=== PATIENT | female | born 1970 | race Caucasian/White ===

== ENCOUNTER 2017-05-13 17:53 | Emergency (ER) | payer MEDICAID, SELFPAY ==
[2017-05-13 17:54] VITALS: BP 162/76; PULSE 99; RESP 16; TEMP 36.8; O2SAT 96; BMI 45.4
--- NOTE | 2017-05-13 17:58 | RAD_ITS ---
STUDY: X-RAY - LEFT SHOULDER REASON FOR EXAM: Female, 47 years old. Trauma TECHNIQUE: 2 view(s) of the shoulder. COMPARISON: None. FINDINGS: Normal glenohumeral articulation. Normal acromioclavicular joint. Normal acromion. Normal humeral head and visualized proximal humerus. The soft tissue structures are unremarkable. Normal visualized pulmonary apex. RAD/Shoulder min 2 Views IMPRESSION: Normal x-ray examination of the shoulder. Electronically Signed: Jesse Flores MD at 18:26 EDT , Service support ,
--- NOTE | 2017-05-13 18:45 | ED.VISSUMM ---
- ER Visit Summary Date of Service: 05/13/17 Chief Complaint: Left shoulder injury History of Present Illness: The patient is a 47 F right-hand dominant female who was standing on the edge of her bathtub to clean some cobwebs, she slipped and fell, landing against the tub versus the posterior aspect of her left shoulder. She has a history of left shoulder bursitis and had trouble reaching overhead prior to the injury, now it is hurting worse. Denies any neurologic symptoms in her left upper extremity Physical Examination: Well-appearing no acute distress. Tender in the trapezius, medial to the acromion, above the spine of the scapula. There is no tenderness to the clavicle or the AC joint, there are no deformities. Her obesity does limit this exam to some degree. She has some mild tenderness throughout the proximal humerus as well, and some tenderness in the subacromial area. There are no obvious signs of trauma. The rest of her exam is benign. Neurovascularly intact distally throughout the left upper extremity. No numbness throughout the distribution of the axillary nerve. Test Results: Left shoulder x-ray negative Emergency Department Course and Treatment: Her range of motion is limited with regards to abduction and reaching overhead. I think she would benefit from a sling, she states if she does not move it from the position of comfort, she has no pain. She is amenable to receiving that, using it prn, and ibuprofen 800 mg, as well as a prescription for that. Treatment Plan: As above, follow-up as needed if not improving after a week Disposition: Discharge home Impression: Acute left shoulder contusion History left shoulder bursitis This note was generated with [employer] dictation software. It may contain incorrect words, spelling, and punctuation that were not noted in review of the chart prior to signing ED Disposition - Plan for ED Patient: Disposition: Home or Assisted Living Chief Complaint: Upper Extremity Injury Instructions: ED Contusion Upper Ext, ED Sling Prescriptions: Ibuprofen 800 mg PO . Q8-12H PRN #20 tab PRN Reason: Pain Referrals: Yifan Blum DO [Primary Care Provider] - 1 Week if not improving
--- NOTE | 2017-05-13 18:51 | ED.DCSUM_ITS ---
- ER Visit Summary Date of Service: 05/13/17 Chief Complaint: Left shoulder injury History of Present Illness: The patient is a 47 F right-hand dominant female who was standing on the edge of her bathtub to clean some cobwebs, she slipped and fell, landing against the tub versus the posterior aspect of her left shoulder. She has a history of left shoulder bursitis and had trouble reaching overhead prior to the injury, now it is hurting worse. Denies any neurologic symptoms in her left upper extremity Physical Examination: Well-appearing no acute distress. Tender in the trapezius , medial to the acromion, above the spine of the scapula. There is no tenderness to the clavicle or the AC joint, there are no deformities. Her obesity does limit this exam to some degree. She has some mild tenderness throughout the proximal humerus as well, and some tenderness in the subacromial area. There are no obvious signs of trauma. The rest of her exam is benign. Neurovascularly intact distally throughout the left upper extremity. No numbness throughout the distribution of the axillary nerve. Test Results: Left shoulder x-ray negative Emergency Department Course and Treatment: Her range of motion is limited with regards to abduction and reaching overhead. I think she would benefit from a sling, she states if she does not move it from the position of comfort, she has no pain. She is amenable to receiving that, using it prn, and ibuprofen 800 mg , as well as a prescription for that. Treatment Plan: As above, follow-up as needed if not improving after a week Disposition: Discharge home Impression: Acute left shoulder contusion History left shoulder bursitis This note was generated with [employer] dictation software. It may contain incorrect words, spelling, and punctuation that were not noted in review of the chart prior to signing ED Disposition - Plan for ED Patient: Disposition: Home or Assisted Living Chief Complaint: Upper Extremity Injury Instructions: ED Contusion Upper Ext, ED Sling Prescriptions: Ibuprofen 800 mg PO . Q8-12H PRN #20 tab PRN Reason: Pain Referrals: Yifan Blum DO [Primary Care Provider] - 1 Week if not improving
[2017-05-13] MEDS: Ibuprofen 400 MG Tablet 800 MG PO (19:30)
--- NOTE | 2017-05-13 19:32 | ED.RN ---
VERBAL AND WRITTEN D/C INSTRUCTIONS GIVEN. ALL QUESTIONS ANSWERED. GAIT STEADY OUT OF DEPARTMENT.
== END 2017-05-13 19:32 | disposition home or self-care (01) ==
LOC: ED 18:57
PROVIDERS: Emergency Provider Emergency Medicine; Family Provider Student in an Organized Health Care Education/Training Program; PCP Student in an Organized Health Care Education/Training Program
DX: S40.012A Contusion of left shoulder, initial encounter (principal); M75.52 Bursitis of left shoulder; W01.0XXA Fall on same level from slipping, tripping and stumbling without subsequent striking against object, initial encounter; Y93.9 Activity, unspecified; Y92.9 Unspecified place or not applicable; Y99.9 Unspecified external cause status; E66.9 Obesity, unspecified
CPT/HCPCS: 73030; 99283

== ENCOUNTER → 2017-05-30 10:30 | Outpatient (CLI) | payer MEDICAID, SELFPAY ==
[2017-05-30 10:35] LABS: Mucous, Urine 0 SEEN /hpf (<or=2+); Red Blood Cells-Urine 0 SEEN /hpf (0-5)
[2017-05-30 11:03] LABS: Color, Urine Yellow (Yellow); Glucose, Dipstick 1000 mg/dl (Normal); Ketone-Dipstick 5 mg/dl (Negative); Leukocyte Esterase-Dipstick 500 /ul (Negative); Nitrite-Dipstick Negative (Negative); Occult Blood-Urine Negative /ul (Negative); Protein-Dipstick 15 mg/dl (Negative); Specific Gravity, Urine 1.015 (1.002-1.030); Urine Bilirubin Dipstick Negative (Negative); Urine Clarity Sl. Cloudy (Clear); Urine Urobilinogen Normal (Normal)
[2017-05-30 11:13] LABS: Squamous Epithelial Cells - UA 0-5 SEEN /hpf (5-10); White Blood Cells 25-50 SEEN /hpf (0-5)
[2017-05-30 11:14] LABS: Bacteria 1+ /hpf (None Seen)
[2017-05-30 12:42] LABS: ALB/GLOB Ratio 1.1 RATIO (0.9-2.4); AST(SGOT) 26 U/L (15-37); Alanine Aminotransfer ALT/SGPT 24 U/L (13-56); Albumin, Serum 3.8 g/dL (3.2-5.0); Alkaline Phosphatase 72 U/L (45-117); Anion Gap 5 (5-15); BUN 8 mg/dL (7-18); BUN/Creat Ratio 10.6 RATIO (10-20); Calcium,Total 8.8 mg/dL (8.5-10.1); Chloride 105 mmol/L (98-107); Cholesterol 173 mg/dL (200); Creatinine, Serum 0.76 mg/dL (0.55-1.02); EST Glomerular Filtration Rate 88 mL/min (>60); Est Glom Filt Rate - Afr Amer 106 mL/min (>60); Globulin 3.6 g/dL (2.2-4.2); Glucose 176 mg/dL (74-106); High Density Lipoprotein 44 mg/dL; Potassium 3.7 mmol/L (3.5-5.1); Protein, Total 7.4 g/dL (6.4-8.2); Sodium Level 140 mmol/L (136-145); Triglycerides 262 mg/dL; Very Low Density Lipoprotein 52 mg/dL (5-40)
== END ==
PROVIDERS: Family Provider Student in an Organized Health Care Education/Training Program; PCP Student in an Organized Health Care Education/Training Program; Visit Provider Nurse Practitioner
DX: E10.8 Type 1 diabetes mellitus with unspecified complications (principal); E10.65 Type 1 diabetes mellitus with hyperglycemia
CPT/HCPCS: 36415; 80053; 80061; 81001

== ENCOUNTER → 2017-10-04 09:30 | Outpatient (CLI) | payer MEDICAID, SELFPAY | PROVIDERS: Family Provider Student in an Organized Health Care Education/Training Program; PCP Student in an Organized Health Care Education/Training Program; Visit Provider Podiatrist | DX: S86.311A Strain of muscle(s) and tendon(s) of peroneal muscle group at lower leg level, right leg, initial encounter (principal); X58.XXXA Exposure to other specified factors, initial encounter; Y93.9 Activity, unspecified; Y92.9 Unspecified place or not applicable; Y99.9 Unspecified external cause status; M79.89 Other specified soft tissue disorders | CPT/HCPCS: 73718 ==

== ENCOUNTER → 2018-02-12 11:46 | Outpatient (CLI) | payer MEDICAID, SELFPAY ==
[2018-02-12 10:46] VITALS: BMI 44.5
[2018-02-12 13:08] LABS: Microalbumin,Random Urine 17.5 mg/L (NO RANGE EST.); Microalbumin:Creatinine Ratio 8.1 mg/g CRE (<30 mg/g CRE)
[2018-02-12 13:27] LABS: ALB/GLOB Ratio 1.1 RATIO (0.9-2.4); AST(SGOT) 15 U/L (15-37); Alanine Aminotransfer ALT/SGPT 20 U/L (13-56); Albumin, Serum 3.8 g/dL (3.2-5.0); Alkaline Phosphatase 73 U/L (45-117); Anion Gap 8 (5-15); BUN 8 mg/dL (7-18); BUN/Creat Ratio 9.9 RATIO (10-20); Calcium,Total 9.1 mg/dL (8.5-10.1); Chloride 108 mmol/L (98-107); Creatinine, Serum 0.81 mg/dL (0.55-1.02); EST Glomerular Filtration Rate 81 mL/min (>60); Est Glom Filt Rate - Afr Amer 98 mL/min (>60); Globulin 3.6 g/dL (2.2-4.2); Glucose 107 mg/dL (74-106); Protein, Total 7.4 g/dL (6.4-8.2); Sodium Level 142 mmol/L (136-145)
== END ==
PROVIDERS: Family Provider Student in an Organized Health Care Education/Training Program; PCP Student in an Organized Health Care Education/Training Program; Referring Provider Nurse Practitioner; Visit Provider Nurse Practitioner
DX: E11.65 Type 2 diabetes mellitus with hyperglycemia (principal)
CPT/HCPCS: 36415; 80053; 82043; 82570; 83036

== ENCOUNTER 2018-07-02 12:53 | Emergency (ER) | payer MEDICAID, SELFPAY ==
[2018-02-12 10:46] VITALS: BMI 44.5
[2018-07-02 12:54] VITALS: BP 152/71; PULSE 102; RESP 16; TEMP 37.1; O2SAT 98; BMI 38.2
--- NOTE | 2018-07-02 13:41 | ED.RN ---
PT GIVEN TURKEY SANDWICH AND CHEESE STICK TO SUPPORT SAFE BLOOD GLUCOSE LEVELS. WILL CONTINUE TO MONITOR AND CHECK POST-PRANDIAL GLUCOSE APPROPRIATE.
--- NOTE | 2018-07-02 13:49 | ED.DCSUM_ITS ---
History of Present Illness Chief Complaint: Hypoglycemia Narrative: Patient presenting for evaluation secondary to a hypoglycemic episode. Patient has history of type 1 diabetes. She is on both long-acting and short acting insulin and is managed by an thermoscrew operator. Patient reports that about a week and a half ago she had an upward adjustment of her long-acting insulin. She has had about 3 hypoglycemic episodes since then. The additional episodes were treated at home with glucagon, but the patient did not have her glucagon with her today, so EMS was contacted. Patient was given oral sugar, and did have improvement of her blood sugars. Patient states that her diabetes is complicated by the fact that she has underlying gastroparesis. She denies that she is been having any significant vomiting currently. Review of systems otherwise negative. Past Medical History - Allergies and Home Meds Allergies/Adverse Reactions: Allergies mirtazapine [From Remeron] Allergy (Severe, Verified 02/12/18 10:43) Unknown hydrocodone bitartrate [From Vicodin] Allergy (Verified 02/12/18 10:43) Itching latex Allergy (Verified 02/12/18 10:43) Swelling oxycodone HCl [From Percocet] Allergy (Verified 02/12/18 10:43) Itching Penicillins Allergy (Verified 02/12/18 10:43) Unknown propoxyphene napsylate [From Darvocet-N 100] Allergy (Verified 02/12/18 10:43) Unknown vancomycin Allergy (Verified 02/12/18 10:43) Unknown Primary Care Physician: Yifan Blum DO [Primary Care Provider] - Smoking Status: Current every day smoker Review of Systems All systems negative except as indicated General: Denies: Chills, Fever Gastrointestinal: Reports: Nausea, Vomiting Endocrine: Reports: - - hypoglycemia Physical Exam Vital Signs/Narrative: Vital Signs Temp Pulse Resp BP Pulse Ox 07/02/18 12:54 98.7 F 102 H 16 152/71 H 98 General: Well nourished, Well developed, - - Obese Head: Normocephalic, Atraumatic Eyes: Perrl, EOMI ENT: Moist mucous membranes, No rhinorrhea Neck: Supple, Nontender Cardiovascular: Regular rate, Regular rhythm, No murmurs Respiratory: No distress, CTA bilaterally, Chest nontender Abdomen: Soft, Nontender, Nondistended, Normal bowel sounds Extremities: Nontender, No edema Skin: Normal color, No rash Neurological: Alert, Oriented x3, Cranial nerves II-XII grossly intact, Normal Strength, Normal Sensation Psychological: Normal affect, Normal Mood Diagnostic/Tx/Re-eval - Medical Decision Making Patient presented secondary to a hypoglycemic episode. Patient was given a p.o. diet in the emergency department, was observed for an hour and a half, and did not have repeat episodes of hypoglycemia. Patient at this point I believe is ap propriate for discharge. She was recommended that she needs to follow-up with her thermoscrew operator. Patient was discharged in improved condition. ED Disposition - Plan for ED Patient: Disposition: Home or Assisted Living Diagnosis: Hypoglycemia Instructions: ED Diabetes Hypoglycemia Insulin React Additional Instructions: Follow-up as soon as possible with your thermoscrew operator
[2018-07-02 14:21] LABS: Bedside Glucose 87 mg/dL (70-110)
[2018-07-02 17:30] LABS: Bedside Glucose 85 mg/dL (70-110)
== END 2018-07-02 14:49 | disposition home or self-care (01) ==
PROVIDERS: Emergency Provider Emergency Medicine; Family Provider Student in an Organized Health Care Education/Training Program; PCP Student in an Organized Health Care Education/Training Program
DX: E10.649 Type 1 diabetes mellitus with hypoglycemia without coma (principal); E10.43 Type 1 diabetes mellitus with diabetic autonomic (poly)neuropathy; K31.84 Gastroparesis; F17.200 Nicotine dependence, unspecified, uncomplicated; Z79.4 Long term (current) use of insulin; Z79.899 Other long term (current) drug therapy; Z88.0 Allergy status to penicillin; Z88.5 Allergy status to narcotic agent; Z91.040 Latex allergy status
CPT/HCPCS: 82962; 96360; 99284; J7040; A4216

== ENCOUNTER 2018-08-04 09:00 | Outpatient (RCR) | payer MEDICAID, SELFPAY ==
--- NOTE | 2018-07-31 11:09 | HP.OTEVAL ---
Patient's Visit Information JACQUE RODRIGUEZ is a 48 year old F, referred to Occupational Therapy by Bennie Torres MD, with a diagnosis of MF and RF trigger finger. Date of Evaluation: 07/31/18 Occupational Therapist: Caitlin Campuzano, MARQUESR/L - Subjective Subjective: Jacque nagy is referred from Dr. Torres. 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 She noted cesia was removed and since trauma to hand she explained L MF and RF have become very sore and are presenting like trigger fingers. - ADLs Dressing: Pants Comments: using straighten; lotion to hands Kitchen: Chop with knife, Peel fruits & vegetables, Open jars, Ziplock bags, Place dish in microwave Comments: tearing things open. Household: Laundry Miscellaneous: Open medication bottle Comments: framing tasks Comments: Increased difficulty getting ring on and off. 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 Noted sharp/buring pain in L hand when compelitng task. She does have neuropathy in feet. - Edema Proximal Phalanx: MF R 7.8 cm, L 8.2 cm ; RF R 7.2, 7.5 cm - Sensation Thumb: R 2.83, L 2.83 Index: R 3.22, L 2.83 Middle: R 3.22, L 3.22 Ring: R 3.22, L 2.83 Little: R 3.22, L 2.83 Sensation Comments: Monofilamnet completed finger pads (see above). dorsal on proximal phalanx: R 2nd 2.44, 3rd 2.44, 4th 2.44, 5th 2.44, thumb 3.22. L 2nd 1.65, 3rd 1.65, 4th 2.63, 5th 1.65, thumb 3.22 - In-Hand Manipulation Finger to Palm Translation: Normal - Right, Moderate - Left Palm to Finger Translation: Normal - Right, Moderate - Left Shift: Normal - Right, Normal - Left Rotation: Normal - Right, Mild - Left - Quick DASH-Disab of Arm,Shoulder& Hand Quick DASH Score: 59.0900 - Goals Goal:: Cuong to inceased R brownfield redevelopment site manager strength by 20-25 lbs to promote increased strength and decreased pian 2/3 trials 75% of the time by d/c. Goal:: Cuong to increase l RF and MF ROM by 10 degrees to promote increased ability to complete flexionand extension of L hand for ADL/IAdls by d/c. Goal:: Cuong to have no more than 1-2/10 pain with completing fx activities 4/5 trials 80% o the time for ADL/IADls by d/c. Goal:: Jacque nagy to complete daily scar massage to promote decreased sensitivity to area 4/5 trials 80% of the time by d/c. Goal:: Cuong to increase fx pinch patterns by 5-7 lbs to promote increased strength of l hand for ADL/IADls by d/c. Goal:: Jacque nagy to completed daily HEP to promote increased edema management techniques, ROM, strength 4/5 trials 80% of the time by d/c. - Rehabilitation Rehabilitation Potential: Good - Anticipated Interventions Anticipated Interventions: Early Active Motion, A/AAROM/PROM, Strengthening, Edema Control, Desensitization, Modalities, Orthoses, Joint Protection/Energy Conservation, Ergonomic Education, Dynamic Sitting Balance, Fine Motor Coord/Junior, Neuro Reeducation, ADL Training, Caregiver Training, Home Program - Visit Plan Frequency: 2-3x /Week Duration: 4 Weeks TEXT: Thank you for the opportunity to evaluate your patient. For Medicare and Medicare HMO plans, please review the plan of care and approve it. It will need to be FAXED BACK to us at [phone] for Medicare purposes. Please let me know if there are questions or concerns regarding this plan of care. Physician Signature: Date:
--- NOTE | 2018-07-31 13:12 | HP.OTEVAL ---
Patient's Visit Information JACQUE RODRIGUEZ is a 48 year old F, referred to Occupational Therapy by Bennie Torres MD, with a diagnosis of MF and RF trigger finger. Date of Evaluation: 07/31/18 Occupational Therapist: Caitlin Campuzano, MARQUESR/L - Subjective Subjective: Jacuqe nagy is referred from Dr. Torres. 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 She noted cesia was removed and since trauma to hand she explained L MF and RF have become very sore and are presenting like trigger fingers. - ADLs Dressing: Pants Comments: using straighten; lotion to hands Kitchen: Chop with knife, Peel fruits & vegetables, Open jars, Ziplock bags, Place dish in microwave Comments: tearing things open. Household: Laundry Miscellaneous: Open medication bottle Comments: framing tasks Comments: Increased difficulty getting ring on and off. - Pain L MF and RF 3 Pain Intensity Range: 3, 8 - ROM Wrist: flexion R 0-73, L 0-65; ext R 0-44, L 0-41 MP: MF R 0-70, L 12-59; RF R 0-65, L 0-53 PIP: MF R 0-96, L 19-64; RF R 0-97, L 19-71 DIP: MF R 0-46, L 11-54; RF R 0-52, L 0-44 - Strength Motorsports Technician: R 55, L 13 Lateral Pinch: R 13, L 5 Tripod Pinch: R 12, L 2 Strength Comments: Increased pain with tape edge machine operator and pinch movement of L hand. Noted sharp/buring pain in L hand when compelitng task. She does have neuropathy in feet. - Edema Proximal Phalanx: MF R 7.8 cm, L 8.2 cm ; RF R 7.2, 7.5 cm - Sensation Thumb: R 2.83, L 2.83 Index: R 3.22, L 2.83 Middle: R 3.22, L 3.22 Ring: R 3.22, L 2.83 Little: R 3.22, L 2.83 Sensation Comments: Monofilamnet completed finger pads (see above). dorsal on proximal phalanx: R 2nd 2.44, 3rd 2.44, 4th 2.44, 5th 2.44, thumb 3.22. L 2nd 1.65, 3rd 1.65, 4th 2.63, 5th 1.65, thumb 3.22 - In-Hand Manipulation Finger to Palm Translation: Normal - Right, Moderate - Left Palm to Finger Translation: Normal - Right, Moderate - Left Shift: Normal - Right, Normal - Left Rotation: Normal - Right, Mild - Left - Quick DASH-Disab of Arm,Shoulder& Hand Quick DASH Score: 59.0900 - Goals Goal:: Jacque nagy to inceased R tape edge machine operator strength by 20-25 lbs to promote increased strength and decreased pian 2/3 trials 75% of the time by d/c. Goal:: Jacque nagy to increase l RF and MF ROM by 10 degrees to promote increased ability to complete flexionand extension of L hand for ADL/IAdls by d/c. Goal:: Jacque nagy to have no more than 1-2/10 pain with completing fx activities 4/5 trials 80% o the time for ADL/IADls by d/c. Goal:: Jacque nagy to complete daily scar massage to promote decreased sensitivity to area 4/5 trials 80% of the time by d/c. Goal:: Jacque nagy to increase fx pinch patterns by 5-7 lbs to promote increased strength of l hand for ADL/IADls by d/c. Goal:: Jacque nagy to completed daily HEP to promote increased edema management techniques, ROM, strength 4/5 trials 80% of the time by d/c. - Rehabilitation General Assessment: OT assessment on this date of 07/31/18. Jacque Nagy exhibits increased tenderness and limited ROM for finger flexion and extension of L hand s/p traumatic injury with metal cesia. SHe is presenting like trigger finger but increased soft tissue damage likely due to injury. She would benefit from OT to address these limitations and increased her ability to return to [facility] for ADL/IAdls with L hand. Rehabilitation Potential: Good - Anticipated Interventions Anticipated Interventions: Early Active Motion, A/AAROM/PROM, Strengthening, Edema Control, Desensitization, Modalities, Orthoses, Joint Protection/Energy Conservation, Ergonomic Education, Dynamic Sitting Balance, Fine Motor Coord/Junior, Neuro Reeducation, ADL Training, Caregiver Training, Home Program - Visit Plan Frequency: 2-3x /Week Duration: 4 Weeks General Plan: complete edema management techniques, ROM, strengthening, pain management with use of modalities, and general splint if needed to promote return of function of l hand for ADL/IADls. TEXT: Thank you for the opportunity to evaluate your patient. For Medicare and Medicare HMO plans, please review the plan of care and approve it. It will need to be FAXED BACK to us at [phone] for Medicare purposes. Please let me know if there are questions or concerns regarding this plan of care. Physician Signature: Date:
--- NOTE | 2018-08-01 07:22 | HP.OTEVAL ---
Patient's Visit Information JACQUE RODRIGUEZ is a 48 year old F, referred to Occupational Therapy by Bennie Torres MD, with a diagnosis of MF and RF trigger finger. Date of Evaluation: 07/31/18 Occupational Therapist: Caitlin Campuzano, MARQUESR/L - Subjective Subjective: Jacque nagy is referred from Dr. Torres. 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 She noted cesia was removed and since trauma to hand she explained L MF and RF have become very sore and are presenting like trigger fingers. - ADLs Dressing: Pants Comments: using straighten; lotion to hands Kitchen: Chop with knife, Peel fruits & vegetables, Open jars, Ziplock bags, Place dish in microwave Comments: tearing things open. Household: Laundry Miscellaneous: Open medication bottle Comments: framing tasks Comments: Increased difficulty getting ring on and off. - Pain L MF and RF 3 Pain Intensity Range: 3, 8 - ROM Wrist: flexion R 0-73, L 0-65; ext R 0-44, L 0-41 MP: MF R 0-70, L 12-59; RF R 0-65, L 0-53 PIP: MF R 0-96, L 19-64; RF R 0-97, L 19-71 DIP: MF R 0-46, L 11-54; RF R 0-52, L 0-44 - Strength Smooth Plater: R 55, L 13 Lateral Pinch: R 13, L 5 Tripod Pinch: R 12, L 2 Strength Comments: Increased pain with director of assessing and pinch movement of L hand. Noted sharp/buring pain in L hand when compelitng task. She does have neuropathy in feet. - Edema Proximal Phalanx: MF R 7.8 cm, L 8.2 cm ; RF R 7.2, 7.5 cm - Sensation Thumb: R 2.83, L 2.83 Index: R 3.22, L 2.83 Middle: R 3.22, L 3.22 Ring: R 3.22, L 2.83 Little: R 3.22, L 2.83 Sensation Comments: Monofilamnet completed finger pads (see above). dorsal on proximal phalanx: R 2nd 2.44, 3rd 2.44, 4th 2.44, 5th 2.44, thumb 3.22. L 2nd 1.65, 3rd 1.65, 4th 2.63, 5th 1.65, thumb 3.22 - In-Hand Manipulation Finger to Palm Translation: Normal - Right, Moderate - Left Palm to Finger Translation: Normal - Right, Moderate - Left Shift: Normal - Right, Normal - Left Rotation: Normal - Right, Mild - Left - Quick DASH-Disab of Arm,Shoulder& Hand Quick DASH Score: 59.0900 - Goals Goal:: Jacque nagy to inceased R director of assessing strength by 20-25 lbs to promote increased strength and decreased pian 2/3 trials 75% of the time by d/c. Goal:: Jacque nagy to increase l RF and MF ROM by 10 degrees to promote increased ability to complete flexionand extension of L hand for ADL/IAdls by d/c. Goal:: Jacque nagy to have no more than 1-2/10 pain with completing fx activities 4/5 trials 80% o the time for ADL/IADls by d/c. Goal:: Jacque nagy to complete daily scar massage to promote decreased sensitivity to area 4/5 trials 80% of the time by d/c. Goal:: Jacque nagy to increase fx pinch patterns by 5-7 lbs to promote increased strength of l hand for ADL/IADls by d/c. Goal:: Jacque nagy to completed daily HEP to promote increased edema management techniques, ROM, strength 4/5 trials 80% of the time by d/c. - Rehabilitation General Assessment: OT assessment on this date of 07/31/18. Jacque Nagy exhibits increased tenderness and limited ROM for finger flexion and extension of L hand s/p tramatic injury with metal cesia. SHe is presenting like trigger finger but increased soft tissue damage likley due to injury. She would benefit from OT to address these limitation and increased her ability to return to [facility] for ADL/IAdls with L hand. Rehabilitation Potential: Good - Anticipated Interventions Anticipated Interventions: Early Active Motion, A/AAROM/PROM, Strengthening, Edema Control, Desensitization, Modalities, Orthoses, Joint Protection/Energy Conservation, Ergonomic Education, Dynamic Sitting Balance, Fine Motor Coord/Junior, Neuro Reeducation, ADL Training, Caregiver Training, Home Program - Visit Plan Frequency: 2-3x /Week Duration: 4 Weeks General Plan: complete edema management techniques, ROM, strengthening, pain management with use of modalities, and general splint if needed to promote return of function of l hand for ADL/IADls. TEXT: Thank you for the opportunity to evaluate your patient. For Medicare and Medicare HMO plans, please review the plan of care and approve it. It will need to be FAXED BACK to us at [phone] for Medicare purposes. Please let me know if there are questions or concerns regarding this plan of care. Physician Signature: Date:
--- NOTE | 2018-08-29 09:34 | HP.OT.NRP ---
HP - Discharge Summary - Patient Information LISA RODRIGUEZ was seen in my office for initial evaluation on 07/31/18. The following Plan of Care was established for this patient: Initial Frequency: 2-3x /Week Initial Duration: 4 Weeks Plan: continue POC. Continue isometric and intrinsic strengthening techniques as wella s ilnar nerve glides; potentially make trigger finger splint but she is to look online; trial fluidotherapy/US at 1.0 w/cms, 3.3 Mhx, and at 20-50% over volar MCP and palm. If completing fluidotherapy trial abduction, PIP flexion,a nd MP flexion during time in machine. - Anticipated Interventions Anticipated Interventions: Early Active Motion, A/AAROM/PROM, Strengthening, Edema Control, Desensitization, Modalities, Orthoses, Joint Protection/Energy Conservation, Ergonomic Education, Dynamic Sitting Balance, Fine Motor Coord/Junior, Neuro Reeducation, ADL Training, Caregiver Training, Home Program This patient was last seen in our office 08/04/18. Pertinent comments regarding their Occupational therapy will appear below: Pt. has not been seen since 08/04/18. She as been called but consistently has not attended multiple therapy sessions without calling to cancel and will be d/c'd at this time due to lack of attendance. At this point I will be discontinuing this patient from occupational therapy. I would be happy to see this patient again in the future if found appropriate by the physician. Thank you! Caitlin Campuzano, OTR/L
== END 2018-08-04 19:00 | disposition home or self-care (01) ==
LOC: OT 09:00
PROVIDERS: Family Provider Student in an Organized Health Care Education/Training Program; PCP Student in an Organized Health Care Education/Training Program; Referring Provider Orthopaedic Surgery; Visit Provider Orthopaedic Surgery
DX: M65.332 Trigger finger, left middle finger (principal); M65.342 Trigger finger, left ring finger
CPT/HCPCS: 97110; 97166; 97530

== ENCOUNTER 2018-11-14 08:42 | Day surgery (SDC) | payer MEDICAID, SELFPAY ==
[2018-11-14] VITALS (11 sets, daily range): BP systolic 109–132; BP diastolic 54–91; PULSE 70–97; RESP 16; TEMP 36.2–36.6; O2SAT 90–100; BMI 44.8
[2018-11-14] MEDS: Lactated Ringers 1,000 ML 100 ML IV (09:45)
[2018-11-14 09:56] LABS: Bedside Glucose 74 mg/dL (70-110)
--- NOTE | 2018-11-14 10:30 | SOF_PTH ---
PATIENT: LISA RODRIGUEZ LOC: [facility] [place] U#:[id number] AGE/SX: 48/F ROOM: RE11/14/[address]: GIN MultaniM : 1970 BED: DIS: 11/14/2018 SPEC #: [id number] RECD: 11/14/18 12:59 STATUS: SWAPNA REAlix #: [id number] VANGIE: 11/14/18 10:[address]: Evangelista Hand DEPT: SURGICAL PATHOLOGY RECD BY: Markus Jay ENTERED: 11/14/18 13:32 SP TYPE: SOFT TISS OTHR DR: Dr. Yifan Blum, DO Tissues: Right leg Procedures: Surgery Specimen Level III HEADER OPERATION: Lateral leg compartment release, fasciotomy, neurolysis PRE-OP DIAGNOSIS: Soft tissue mass TISSUE SUBMITTED: Tumor, right ankle/leg MICROSCOPIC DIAGNOSIS Soft tissue mass of right ankle/leg, excision: Mature adipose tissue consistent with lipoma. AM:azul 11/17/18 MICROSCOPIC DESCRIPTION Slides are reviewed. GROSS DESCRIPTION Received in fixative is one container labeled with the patient's name and designated tumor right ankle/leg. The specimen consists of multiple pieces of yellow adipose tissue mixed pink-red soft tissue that in aggregate measure 5 x 3 x 1 cm. The entire specimen is submitted in four cassettes. / SJ:azul 11/14/18 TC:1 CPT: 60222
--- NOTE | 2018-11-14 11:10 | DCINST_ITS ---
Discharge Diet: Light diet - advance as tolerated Discharge Activity: May Not Drive, Use Walker Weight Bearing Status: No weight bearing - No weightbearing right foot/ankle Keep extremity elevated above heart level: Right Leg - Keep right foot elevated with pillows for at least 50 minutes of every hour Call your doctor if your incision/area has: Continuous Slow Oozing, Foul Smelling Discharge Call your doctor if you observe: Fever of 101 or Higher, Shortness of breath, Chest pain, Increased palpitations (irregular heartbeat), Calf discomfort, Uncontrolled pain Cleanse incision/area with: Do not get Incision Wet, Keep Dressing Clean & Dry Allergies/Adverse Reactions: Allergies mirtazapine [From Remeron] Allergy (Severe, Verified 11/14/18 09:35) Unknown hydrocodone bitartrate [From Vicodin] Allergy (Verified 11/14/18 09:35) Itching latex Allergy (Verified 11/14/18 09:35) Swelling oxycodone HCl [From Percocet] Allergy (Verified 11/14/18 09:35) Itching Penicillins Allergy (Verified 11/14/18 09:35) Unknown propoxyphene napsylate [From Darvocet-N 100] Allergy (Verified 11/14/18 09:35) Unknown vancomycin Allergy (Verified 11/14/18 09:35) Unknown Medications to take at Discharge Atenolol [Tenormin (Beta Benjamín)] 50 mg PO QHS 11/23/16 Dicyclomine HCl [Bentyl] 20 mg PO 4X/DAY 11/23/16 Gabapentin [Neurontin] 900 mg PO TIDCM 11/23/16 Meclizine HCl [Antivert] 25 - 50 mg PO QHS 11/23/16 Ranitidine [Zantac] 300 mg PO QHS 11/23/16 Rosuvastatin Calcium [Crestor] 20 mg PO DAILY 11/23/16 insulin aspart U-100 100 unit/mL subcutaneous solution See Rx Instructions SC TID ml 04/30/17 Ibuprofen 800 mg PO . Q8-12H PRN #20 tab 05/13/17 Lansoprazole [Prevacid] 30 mg PO DAILY 05/13/17 insulin syringe-needle U-100 half unit marking 0.3 mL 31 gauge x 06/26 See Dose Instructions .ROUTE .MEDSUPPLY #200 ea 11/26/17 FreeStyle [place] 14 Day [place] See Dose Instructions .ROUTE .MEDSUPPLY #1 ea NS 12/16/17 FreeStyle [place] 14 Day S[place] See Dose Instructions .ROUTE .MEDSUPPLY #2 ea NS 12/16/17 Humulin R U-500 (Concentrated) Insulin 500 unit/mL subcutaneous soln See Rx Instructions SC BID #20 ml NS 01/07/18 glucagon (human recombinant) 1 mg solution for injection 1 mg IM ONCE #1 ea 02/12/18 Hydrocodone/Acetaminophen [Vicodin 5-300 mg Tablet] 1 - 2 tab PO Q6H PRN PRN 3 Days #30 tab 11/14/18 The following prescriptions were given: Hydrocodone/Acetaminophen [Vicodin 5-300 mg Tablet] 1 - 2 tab PO Q6H PRN PRN 3 Days #30 tab PRN Reason: Pain Score 1-10/10 Prescription Printed Primary Care Physician: Yifan Blum DO [Primary Care Provider] - Test Results: Test results from this visit will be discussed in further detail at your follow- up appointment, if applicable. Please Follow Up With: Evangelista Hand DPM When: 1 week, sooner if needed
[2018-11-14] MEDS: Bupivacaine Mpf 0.5% 30 ML VIAL (12:01)
--- NOTE | 2018-11-14 12:21 | OP.PCM_ITS ---
Report of Operation Date of Procedure: 11/14/18 Pre-Operative Diagnosis: Soft tissue mass, herniated peroneal muscle belly, compartment syndrome lateral compartment - all right ankle/distal leg Post-Operative Diagnosis: Same Surgery/Procedure Performed:: Excision of soft tissue mass, lateral leg compartment fasciotomy right ankle/distal leg slitter processed film: yes - Dr. Marie Real Type of Anesthesia:: General, Local Specimen's removed: Excised right ankle/leg soft tissue mass tumor sent to pathology Estimated Blood Loss (mL): 1mL Description of Procedure: Indications: This is a 48 year old female with chronic right lateral ankle/distal leg pain which is getting worse. Cllinically findings consistent with soft tissue mass, also suspect peroneal muscle herniation present, along with possible sural neuritis and peroneal tendinopathy. The pain and symptoms are worsening, she is having great trouble walking and doing activity. There is significant pain and swelling. This persists despite nonsurgical care. She has elected to undergo surgical intervention. We discussed the plan procedures, possible benefits vs risks, goals, expectations and estimated healing time. This was discussed with her in detail. All of her questions were answered. The consent form was reviewed with her and she freely signed it. No guarantees were given nor implied. Operative Procedure: The patient was brought back to the operating room table and placed on the operating room stable in the supine position. Patient was carefully secured to the operating room table with a safety belt around her waist. A timeout was performed, the patient was properly identified and the surgical plan was confirmed. The patient received 900mg of Clindamycin for antibiotic prophylaxis. The patient received general anesthesia per the anesthesia team. A well padded thigh pneumatic tourniquet was applied around the right thigh. The right foot/ankle and leg were scrubbed, prepped, and draped in the usual aseptic fashion. Further attention was directed to the right lateral ankle/distal leg and there were clinical findings consistent with a soft tissue mass as well as herniation of the peroneal muscle belly with compartment syndrome. The right foot and ankle were elevated for three minutes and the thigh pneumatic tourniquet was inflated to 350mmHg. A linear longitudinal skin incision was made overlying the lateral compartment of the leg and ankle overlying the mass. There was noted to be a deflect in the lateral compartment fascia layer with an ~5cm x1cm herniation of the peroneal muscle belly as expected. The lateral compartment fascia was released decompressing the compartment and muscle belly. There was a fatty yellow mass tumor to the peroneus longus muscle belly. An incision was made overlying the mass. The fatty mass tumor extended ~10 cm in length along the peroneus longus muscle belly distally. The fatty mass tumor was carefully excised and sent as specimen to pathology. The rest of the muscle belly to both the peroneus longus and brevis tendons, along with the peroneal tendons were healthy, viable and intact. There was no involvement of the sural nerve, so it was left alone out of the way. The site was flushed with copious amounts of normal saline solution. The remaining tissues were noted to he healthy and viable. The fascia layer was not closed to keep the lateral compartment decompressed. The subcutaneous tissue was reapproximated using 3-0 Vicryl and the skin was reapproximated using 3-0 Nylon. A total of 20 mL of 0.5% Bupivacaine plain was given as a local nerve block around the surgical site for pain control. A dressing was applied which consisted of Betadine soaked adaptic, 4x4 gauze, Kerlix and angella bandages. The pneumatic tourniquet was deflated and there was immediate return of warmth and perfusion to the right foot, ankle and leg. CFT < 2 seconds to all toes with normal temperature. The patient was transported from the operating room to the recovery room with vital signs stable and in good condition. Post operative orders were placed. Post operative instructions were reviewed with patient and her today. No weightbearing right foot/ankle, keep right foot elevated for at least 50 minutes of every hour. Keep dressing clean, dry and intact. Prescription for Vicodin was prescribed 1-2 tabs PO q 6 hours PRN pain - patient again relates she is not allergic - has taken before multiple times. Patient to follow up in 1 week, sooner if needed. Grafts/Implants Used: None - Complications None
[2018-11-14 13:05] LABS: Bedside Glucose 78 mg/dL (70-110)
== END 2018-11-14 14:20 | disposition home or self-care (01) ==
LOC: SDC 08:43 → AC 08:44
PROVIDERS: Family Provider Student in an Organized Health Care Education/Training Program; PCP Student in an Organized Health Care Education/Training Program; Referring Provider Podiatrist; Visit Provider Podiatrist
PROC: (CPT 27600; principal; 2018-11-14 10:15)
DX: T79.A21A Traumatic compartment syndrome of right lower extremity, initial encounter (principal); M62.89 Other specified disorders of muscle; S94.21XA Injury of deep peroneal nerve at ankle and foot level, right leg, initial encounter; S86.301A Unspecified injury of muscle(s) and tendon(s) of peroneal muscle group at lower leg level, right leg, initial encounter; R22.41 Localized swelling, mass and lump, right lower limb; X58.XXXA Exposure to other specified factors, initial encounter; Y93.9 Activity, unspecified; Y92.9 Unspecified place or not applicable; Y99.9 Unspecified external cause status; E10.9 Type 1 diabetes mellitus without complications; G25.81 Restless legs syndrome; E78.00 Pure hypercholesterolemia, unspecified; K21.9 Gastro-esophageal reflux disease without esophagitis; Z96.41 Presence of insulin pump (external) (internal); Z79.4 Long term (current) use of insulin; Z79.899 Other long term (current) drug therapy; Z78.0 Asymptomatic menopausal state; Z87.891 Personal history of nicotine dependence
CPT/HCPCS: 27600; 27634; 82962; 88304; 88305; J7120; J2405

== ENCOUNTER 2019-01-10 16:49 | Emergency (ER) | payer MEDICAID, SELFPAY ==
[2018-11-14 09:38] VITALS: BMI 44.8
[2019-01-10 16:50] VITALS: BP 170/108; PULSE 98; RESP 16; TEMP 36.4; O2SAT 98; BMI 39.6
--- NOTE | 2019-01-10 17:24 | ED.VISSUMM ---
- ER Visit Summary Date of Service: 01/10/19 Chief Complaint: Surgical wound problem History of Present Illness: The patient is a 48 F who states that she saw [facility] [place] hand surgery for procedure on December 26. She was seen by nurse practitioner yesterday had the stitches removed and the wound opened up and what she was told it was infected. She was placed on doxycycline and was told to use Steri-Strips. However Steri-Strips are not working for her. She states she was told not to keep any dressing on the wound and definitely no antibiotic ointment. She was told to take ibuprofen which is not helping her pain. Physical Examination: Afebrile vital signs are stable There is a right palm surgical incision that has dehisced. There is no significant surrounding erythema or drainage noted. Fingers are neurovascular intact. No lymphangitic streaking. No signs of tenosynovitis. Emergency Department Course and Treatment: I told the patient there is not much I could do for her. I will write for some Percocet. I would recommend keeping the wound covered as she has an open wound on a diabetic hand. I advised her she needs to call her surgeon's office on Saturday. Impression: 1. Right palm surgical wound dehiscence This note was generated with [employer] dictation software. It may contain incorrect words, spelling, and punctuation that were not noted in review of the chart prior to signing ED Disposition - Plan for ED Patient: Disposition: Home or Assisted Living Instructions: ED Wound Infection after surgery Prescriptions: Oxycodone HCl/Acetaminophen [Percocet 5/325] 1 tab PO Q6H PRN PRN 3 Days #12 tab PRN Reason: Pain Prescription Printed Additional Instructions: You need to call your surgeon on Saturday.
[2019-01-10 17:38] VITALS: BP 168/101; PULSE 94; RESP 14; O2SAT 96
== END 2019-01-10 17:39 | disposition home or self-care (01) ==
LOC: ED 17:31
PROVIDERS: Emergency Provider Emergency Medicine; Family Provider Student in an Organized Health Care Education/Training Program; PCP Student in an Organized Health Care Education/Training Program
DX: T81.31XA Disruption of external operation (surgical) wound, not elsewhere classified, initial encounter (principal); E11.9 Type 2 diabetes mellitus without complications; I10 Essential (primary) hypertension; E66.9 Obesity, unspecified; Z79.4 Long term (current) use of insulin; Z79.899 Other long term (current) drug therapy
CPT/HCPCS: 99282

== ENCOUNTER 2019-03-03 14:37 | Emergency (ER) | payer MEDICAID, SELFPAY ==
[2019-03-03 14:38] VITALS: BP 154/78; PULSE 89; RESP 16; TEMP 36.6; O2SAT 98; BMI 39.4
--- NOTE | 2019-03-03 14:56 | ED.VISSUMM ---
- ER Visit Summary Date of Service: 03/03/19 Chief Complaint: Right knee pain History of Present Illness: The patient is a [address] Blum. She reports that 1030 this morning she slipped on the ice and twisted her right knee awkwardly. She denies any other injuries. No blow to the head or loss of consciousness. She is not on anticoagulants. She denies any neck, back, shoulder, wrist, or hip pain. Patient reports that she has an aching right knee pain that is 10 out of 10 with walking or bending. Signout 10 at rest. She is not taking anything for this. Physical Examination: Vitals: Stable. Afebrile. Neck: No vertebral tenderness. Full ROM without difficulty. Cleared by NEXUS criteria. Back: No vertebral tenderness. General: A&O x 3. NAD. Cardiovascular exam: Regular rate and rhythm, no murmur, rub or gallop. Respiratory exam: Chest nontender. No crepitus. Clear to auscultation bilaterally. No wheezes or stridor. Abdominal exam: Soft, nontender, nondistended, normal bowel sounds. No pain in RUQ or LUQ specifically. No peritoneal signs. Extremity: Moderate tenderness palpation over the medial side of her knee. Mild diffuse tenderness palpation. She does have a small joint effusion. Pain, but no ligamentous instability with anterior/posterior drawer or medial/lateral stress. She is neurovascular intact distal to this. 1+ dorsalis pedis pulse. She has decreased sensation to light touch in a stocking distribution bilaterally and the patient reports that this is chronic. Test Results: Right knee x-ray shows no acute disease. Emergency Department Course and Treatment: Patient was treated with [place]. She is resting comfortably. Treatment Plan: Patient will be discharged with [place]. She already has crutches at home. Instructed to follow-up with her orthopedic surgeon 1 week if not improving. She does understand that she may have damaged her cartilage or ligaments. Return to the emergency department for any worsening symptoms. Disposition: To home in improved and stable condition. Impression: 1. Fall. 2. Right knee pain, acute. This note was generated with [employer] software. It may contain incorrect words, spelling, and punctuation that were not noted in review of the chart prior to signing ED Disposition - Plan for ED Patient: Instructions: KNEE PAIN, Uncertain Cause Prescriptions: Hydrocodone Bitart/Apap 5-325 [[place] 5MG-325MG] 1 tablet PO Q6H PRN PRN 3 Days #12 tablet PRN Reason: Pain Referrals: Doctor,Your [STAFF PHYSICIAN] - 1 Week if not improving
[2019-03-03] MEDS: HYDROcodone Bitartrate/Apap 5/325 Tablet PO (15:05)
--- NOTE | 2019-03-03 15:10 | RAD_ITS ---
STUDY: X-RAY - RIGHT KNEE REASON FOR EXAM: Female, 48 years old. pt. Fell, pain anterior to medial TECHNIQUE: 4 view(s) of the knee. COMPARISON: None. FINDINGS: Normal visualized distal femur. Normal visualized proximal tibia and fibula. Normal proximal tibiofibular articulation. Normal medial femorotibial compartment. Normal lateral femorotibial compartment. Normal patellofemoral articulation. Prepatellar soft tissue swelling. RAD/Knee 4 or More Views IMPRESSION: Prepatellar soft tissue swelling. Electronically Signed: Emmanuel Ricketts, at 15:39 EST , Service support ,
== END 2019-03-03 15:38 | disposition home or self-care (01) ==
LOC: ED 15:14
PROVIDERS: Emergency Provider Emergency Medicine; PCP Student in an Organized Health Care Education/Training Program
DX: M25.561 Pain in right knee (principal); M25.461 Effusion, right knee; W00.0XXA Fall on same level due to ice and snow, initial encounter; E10.8 Type 1 diabetes mellitus with unspecified complications; Z79.4 Long term (current) use of insulin; Z79.899 Other long term (current) drug therapy
CPT/HCPCS: 73564; 99283

== ENCOUNTER → 2019-07-30 13:06 | Outpatient (CLI) | payer MEDICAID, SELFPAY ==
--- NOTE | 2019-07-30 13:14 | RAD_ITS ---
STUDY: X-RAY - LUMBAR SPINE REASON FOR EXAM: Female, 49 years old. BACK PAIN AND WEAKNESS GOES DOWN LEGS TECHNIQUE: 3 view(s) of the lumbar spine were obtained. COMPARISON: None FINDINGS: Normal lumbar lordosis. There is no substantial scoliosis. There is a normal alignment of the vertebrae. Normal vertebral bodies and endplates. Normal disc space heights. The soft tissue structures are unremarkable. RAD/Lumbar Spine 2 or 3 Views IMPRESSION: Normal x-ray examination of the lumbar spine. Electronically Signed: Jorge Curran, at 18:07 EDT Tel , Service support ,
--- NOTE | 2019-07-30 13:18 | RAD_ITS ---
STUDY: X-RAY - THORACIC SPINE REASON FOR EXAM: Female, 49 years old. BACK PAIN AND WEAKNESS GOES DOWN LEGS TECHNIQUE: 3 view(s) of the thoracic spine were obtained. COMPARISON: None. FINDINGS: Normal kyphosis of the thoracic spine. There is no substantial scoliosis. Normal thoracic vertebrae and endplates. Normal disc space heights. The soft tissue structures are unremarkable. BMI severely elevated. RAD/Thoracic Spine 3 Views IMPRESSION: Normal x-ray examination of the thoracic spine. Elevated BMI. Electronically Signed: Jorge Curran, at 20:41 EDT Tel , Service support ,
== END ==
PROVIDERS: PCP Student in an Organized Health Care Education/Training Program; Referring Provider Anesthesiology Pain Medicine; Visit Provider Anesthesiology Pain Medicine
DX: M54.9 Dorsalgia, unspecified (principal)
CPT/HCPCS: 72072; 72100

== ENCOUNTER 2019-08-10 13:42 | Outpatient (RCR) | payer MEDICAID, SELFPAY ==
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
--- NOTE | 2019-12-14 17:58 | HP.PT.NRP ---
LISA RODRIGUEZ was seen in my office for initial evaluation on 08/10/19. The following Plan of Care was established for this patient: Initial Frequency: 2-3x /Week Initial Duration: 4-6 Weeks Patient/Client Instruction: Educate patient on: Condition, Plan of Care, Risk Factors, Benefits of Fitness Program For the Purpose of:: To improve self management Therapeutic Exercise to Include: Strength training, Balance training, Body mechanics, Postural training, Flexibilty training, Gait and locomotor training, Neuromotor development, In an aquatic setting, Dynamic Lumbar Stabilization For the Purpose of:: To decrease pain, To increase ROM, To improve muscle performance and motor function, To increase tolerance to activity/condition/position, To improve ability of physical actions for home/community/work/leisure, To improve gait and locomotor functions This patient was last seen in our office 08/10/19. Pertinent comments regarding their Physical therapy will appear below: This patient has not returned to Physical Therapy and is appropriate to return to MD for further follow-up as needed. At this point I will be discontinuing this patient from physical therapy. I would be happy to see this patient again in the future if found appropriate by the physician. Thank you! Franchesca Mchugh, PT, Cert MDT
== END 2019-08-10 19:00 | disposition home or self-care (01) ==
LOC: PT 13:42
PROVIDERS: PCP Student in an Organized Health Care Education/Training Program; Referring Provider Anesthesiology Pain Medicine; Visit Provider Anesthesiology Pain Medicine
DX: M54.9 Dorsalgia, unspecified (principal); M79.606 Pain in leg, unspecified
CPT/HCPCS: 97112; 97162

== ENCOUNTER → 2019-08-12 12:36 | Outpatient (CLI) | payer MEDICAID, SELFPAY ==
[2019-08-12 14:19] LABS: Amphetamine Urine VISTA NEGATIVE (<1000 ng/mL); Barbiturate Urine VISTA NEGATIVE (< 200 ng/mL); Benzodiazepine Urine VISTA NEGATIVE (< 200 ng/mL); Cocaine Urine VISTA NEGATIVE (< 300 ng/mL); Ecstacy Urine VISTA POSITIVE (< 500 ng/mL); Methadone Urine VISTA NEGATIVE (< 300 ng/mL); PCP Urine VISTA NEGATIVE (< 25 ng/mL); THC Urine VISTA NEGATIVE (< 50 ng/mL); Vista UDS pH Range 5
== END ==
PROVIDERS: PCP Student in an Organized Health Care Education/Training Program; Referring Provider Anesthesiology Pain Medicine; Visit Provider Anesthesiology Pain Medicine
DX: F11.20 Opioid dependence, uncomplicated (principal)
CPT/HCPCS: 80307

== ENCOUNTER 2020-03-23 15:58 | Emergency (ER) | payer MEDICAID, SELFPAY ==
[2020-03-23 15:59] VITALS: BP 152/87; PULSE 112; RESP 16; TEMP 37.1; O2SAT 97; BMI 48.5
[2020-03-23 16:02] VITALS: BP 152/87; PULSE 112; RESP 15; O2SAT 97
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
[2020-03-23] MEDS: HYDROmorphone 0.5 MG/0.5 ML SYRINGE 1 MG SC (17:35)
[2020-03-23 17:54] VITALS: BP 162/102; PULSE 108; RESP 15; O2SAT 97
== END 2020-03-23 17:54 | disposition home or self-care (01) ==
PROVIDERS: Emergency Provider Emergency Medicine; PCP Student in an Organized Health Care Education/Training Program
DX: S06.0X0A Concussion without loss of consciousness, initial encounter (principal); S13.4XXA Sprain of ligaments of cervical spine, initial encounter; V43.52XA Car driver injured in collision with other type car in traffic accident, initial encounter; Y93.9 Activity, unspecified; Y92.9 Unspecified place or not applicable; Y99.9 Unspecified external cause status; E10.9 Type 1 diabetes mellitus without complications; E78.00 Pure hypercholesterolemia, unspecified; Z79.4 Long term (current) use of insulin; Z79.899 Other long term (current) drug therapy; Z87.891 Personal history of nicotine dependence
CPT/HCPCS: 70450; 72125; 96372; 99285

== ENCOUNTER 2020-06-17 05:56 | Day surgery (SDC) | payer MEDICAID, SELFPAY ==
--- NOTE | 2020-06-10 11:15 | NURSING ---
pt reports that she received second Pfizer vaccine on 05/13/20.
--- NOTE | 2020-06-17 | BON_PTH ---
PATIENT: LISA RODRIGUEZ LOC: [facility] [place] U[place][id number] AGE/SX: 50/F ROOM: RE06/17/[address]: Dr. Evangelista Hand DPM : 1970 BED: DIS: 06/17/2020 SPEC #: [id number] RECD: 06/17/20 14:07 STATUS: SWAPNA REAlix #: [id number] VANGIE: 06/17/20 00:[address]: Evangelista Hand DEPT: SURGICAL PATHOLOGY RECD BY: Yonathan Dowd ENTERED: 06/20/20 07:57 SP TYPE: Bone OTHR DR: Dr. Yifan Blum, Tissues: Bone of foot, NOS Procedures: Decalcification bone/plaque Surgery Specimen Level III HEADER OPERATION: Foot fourth and fifth toe arthroplasty PRE-OP DIAGNOSIS: Kathie fourth and fifth toes TISSUE SUBMITTED: Bone of fourth and fifth toes MICROSCOPIC DIAGNOSIS Bone of fourth and fifth toes: Pieces of bone with reactive changes, clinically hammertoe fourth and fifth toes. KAILASH:azul 06/22/2020 MICROSCOPIC DESCRIPTION Slides are reviewed. GROSS DESCRIPTION Received in fixative is one container labeled with the patient's name and designated bone of fourth and fifth toes. The specimen consists of three variable sized pieces of bone measuring in aggregate 2.2 x 1.2 x 0.4 cm. The larger pieces are bisected. The entire specimen is submitted in one cassette after decalcification. / KAILASH:azul 06/20/20 TC:5 CPT: 79637, 92028
[2020-06-17 06:30] VITALS: BP 126/67; PULSE 80; RESP 16; TEMP 37.3; O2SAT 96; BMI 47.9
[2020-06-17] MEDS: Lactated Ringers 1,000 ML 100 ML IV (06:36)
--- NOTE | 2020-06-17 07:21 | RAD_ITS ---
STUDY: X-RAY - RIGHT FOOT CLINICAL: Arthroplasty of the fourth and fifth toes. TECHNIQUE: 3 intraoperative images of the foot. COMPARISON: Radiographs 12/06/2013. FINDINGS: There is resection arthroplasty of the fourth and fifth proximal interphalangeal joints. 11 seconds of fluoroscopy time was used. Electronically Signed: Johnny Ortiz MD at 13:07 EDT Tel , Service support , RAD/Foot min 3 Views
[2020-06-17 07:46] LABS: Bedside Glucose 129 mg/dL (70-110)
[2020-06-17] MEDS: Bupivacaine Mpf 0.5% 30 ML VIAL (07:56)
--- NOTE | 2020-06-17 08:52 | PCM.DC ---
Discharge Instructions Diet Discharge Diet: No restrictions Activity Discharge Activity: Use Crutches (Use cane or crutches to limit weight on right foot) Weight Bearing Status: Partial weight bearing (Ok to put weight on right heel, no weight on toes right foot) Keep extremity elevated above heart level: Right Leg Additional Activity Instructions:: Keep right foot elevated using pillows for at least 45-50 minutes of every hour. Dressing / Incision Call your doctor if your incision/area has: Continuous Slow Oozing, Sudden Increased Bleeding, Increased Pain/ Swelling and Foul Smelling Discharge Call your doctor if you observe: Fever of 101 or Higher, Shortness of breath, Chest pain, Calf discomfort and Uncontrolled pain Change Dressing in: leave in place till F/U Remove Dressing in: do not remove dressing Cleanse incision/area with: Keep Dressing Clean & Dry (It is normal to have some spotting on outer layer of bandage, if it gets bigger than the diameter of a tennis ball call Dr. Hand.) Follow Up Care Please Follow Up With: Evangelista Hand DPM When: Next week, sooner if needed. Call/page Dr. Hand over weekend if needed - [phone] - physician's registry [facility]. Test Results: Test results from this visit will be discussed in further detail at your follow-up appointment, if applicable. Discharge Plan Admission Attending Provider: Evangelista Hand Primary Care Provider: Yifan Blum Discharge Orders/Prescriptions Prescriptions: New hydrocodone-acetaminophen 5-325 mg tablet 1 tab PO Q6H PRN PRN (Reason: pain (scale score 6-10)) 3 Days Qty: 14 RF: 0 Eliquis 2.5 mg tablet 2.5 mg PO BID Qty: 14 RF: 0 Continued Glucagon Emergency Kit (human) 1 mg recon soln 1 mg IM ONCE Qty: 1 RF: 0 gabapentin 800 MG tablet 900 mg PO BID RF: 0 meclizine 25 MG tablet 25 - 50 mg PO QHS RF: 0 dicyclomine 10 MG capsule 20 mg PO PRN PRN (Reason: gatroparesis) RF: 0 atenolol 50 MG tablet 50 mg PO QHS RF: 0 rosuvastatin 20 MG tablet 20 mg PO DAILY RF: 0 lansoprazole 30 MG capsule 30 mg PO QHS RF: 0 gabapentin 600 mg Tablet 1,200 mg PO QHS RF: 0 Humulin R U-500 (Conc) Insulin 500 unit/mL solution See Rx Instructions SC BID Qty: 20 RF: 11 Discontinued ibuprofen 800 MG tablet 800 mg PO . Q8-12H PRN (Reason: Pain) Qty: 20 RF: 0 Referrals / Follow Up: Yifan Blum DO [Primary Care Provider] - Disposition Discharge Orders: Discharge Patient (Routine); Ordered 06/17/20 Ordered By: Dr. Evangelista Hand
[2020-06-17 08:53] VITALS: BP 118/72; BP 126/67; PULSE 92; RESP 16; TEMP 36.1; O2SAT 94
[2020-06-17 09:02] VITALS: BP 126/67; BP 135/90; PULSE 94; RESP 16; O2SAT 94
--- NOTE | 2020-06-17 09:09 | RAD_ITS ---
STUDY: X-RAY - RIGHT FOOT CLINICAL: Status post arthroplasties of the fourth and fifth toes earlier today. TECHNIQUE: 3 view(s) of the foot. COMPARISON: Radiographs 12/06/2013. FINDINGS: There is a plantar calcaneal enthesophyte. Normal visualized subtalar, talonavicular, calcaneocuboid, tarsal and tarsometatarsal articulations. Normal metatarsi. Normal metatarsophalangeal joint of the great toe. Normal tibial and fibular sesamoid bones. There is a bipartite tibial sesamoid Normal interphalangeal joint of the great toe. Normal phalanges of the great toe. Normal second through fifth metatarsophalangeal joints. There are resection arthroplasties of the fourth and fifth proximal interphalangeal joints. There is ossification in the proximal plantar fascia. RAD/Foot min 3 Views IMPRESSION: Uncomplicated resection arthroplasties of the fourth and fifth proximal interphalangeal joints. Electronically Signed: Johnny Ortiz MD at 11:37 EDT Tel , Service support ,
[2020-06-17 09:15] VITALS: BP 126/67; BP 129/78; PULSE 92; RESP 16; O2SAT 93
[2020-06-17 09:27] VITALS: BP 126/67; BP 127/82; RESP 16; TEMP 36.3; O2SAT 95
--- NOTE | 2020-06-17 09:28 | PCM.OPRPT ---
Report of Operation Date of Procedure: 06/17/20 Pre-Operative Diagnosis: Hammer toe 4th and 5th toes right foot Post-Operative Diagnosis: Same Surgery/Procedure Performed:: Arthroplasty right 4th and 5th toes vice president digital strategist: Lawanda Walker Type of Anesthesia: Local and MAC Specimen's removed: Bone from right 4th and 5th toes sent to pathology Estimated Blood Loss (mL): 1mL Description of Procedure: Indications: This is a 50 year old female with history of symptomatic right 4th and 5th toe pain despite nonsurgical care. She elected to under go surgical intervention arthroplasty 4th and 5th toes on the right foot. This was discussed with her, reviewed the procedures, as well as the rationale of the procedures with her. We discussed and reviewed the possible benefits vs risks/potential complications. The estimated healing/recovery time and protocol were reviewed with her. Reviewed the goals and the expectations. She expressed understanding and agreement and elected to proceed forward with surgical intervention as noted above. The consent forms were reviewed with her and she freely signed them. All of her questions were answered. No guarantees were given or implied. She was cleared from medical standpoint to proceed with surgery. Operative Procedure: The patient was brought back into the operating room and was placed on the operating table in the supine position. Patient was carefully secured to the operating room table with a safety belt around the waist. A time out was performed and the patient was properly identified and the surgical plan was confirmed. The patient received IV antibiotic prophylaxis - 900mg of clindamycin. The patient received MAC anesthesia per the anesthesiologist. A total of 11mL of Bupivacaine plain was given as a local block to the right 4th and 5th toes after the overlying skin was cleansed with 70% isopropyl alcohol. A well padded pneumatic tourniquet was applied around the right ankle. The right foot was scrubbed, prepped, and draped in the usual aseptic fashion. Attention was directed to the right foot. The right foot was exanguinated using an Esmarch bandage and the ankle pneumatic tourniquet was inflated to 250mmHg. Right 4th toe arthroplasty: A dorsal linear longitudinal incision was made over the proximal interphalangeal joint (PIPJ) of the toe. An incision was made longitudinally to the extensor digitorum longus tendon and split down the middle, leaving the ends intact, this was done with a 15 blade. The dorsal PIPJ joint capsule was incised with a 15 blade. The head of the proximal phalanx was very prominent. It was resected using a powered sagittal saw. The lateral aspect of the base of the 4th toe middle phalanx was prominent and it was also resected using the powered sagittal saw. Edges were smoothed using a bone cutting rongeur and rasp. The resected bone was sent to pathology. The site was flushed out with copious amounts of normal saline solution. The remaining tissues were noted to be healthy and viable. The extensor tendon was reapproximated using 4-0 Vicryl. The skin was reapproximated using 4-0 Nylon. Right 5th toe arthroplasty: Two semi eliptical converging skin incisions were made over the proximal interphalangeal joint (PIPJ) of the toe. The extensor digitorum longus tendon was incised transversely and reflected off of the head of the proximal phalanx, this was done with a 15 blade. The dorsal PIPJ joint capsule was incised with a 15 blade. The head of the proximal phalanx was very prominent. It was resected using a powered sagittal saw. Edges were smoothed using a bone cutting rongeur and rasp. The resected bone was sent to pathology. The site was flushed out with copious amounts of normal saline solution. The remaining tissues were noted to be healthy and viable. The extensor tendon was reapproximated using 4-0 Vicryl. The skin was reapproximated using 4-0 Nylon. Intra operative fluoroscopy was used to confirm proper resection - images were saved. The pneumatic tourniquet was deflated at 52 minutes, there was immediate return of warmth and perfusion to the foot and to all toes on the foot with normal temperature gradient and CFT < 2 seconds to all toes once the tourniquet was deflated. A dressing was applied which consisted of Betadine soaked adaptic, 4x4 gauze, Kerlix, and an angella bandage. Of note, all vital structures including all vital neurovascular and tendon structures were properly identified, protected, and retracted as necessary throughout the above operative procedures. The patient tolerated the above operative procedures well at the anesthesia well with no complication. The patient was transported from the operating room to the recovery room with vital signs stable and in good condition. Post operative orders were placed. Post operative instructions were reviewed with her and her who was with her today. No weightbearing on toes right foot foot, keep right foot elevated for at least 45-50 minutes of every hour, keep dressing and splint clean, dry and intact. Post operative xrays were obtained in the recovery room (DP, Oblique, and lateral foot) -these confirmed 4th and 5th toe arthroplasty without complication. Patient was prescribed [place] for pain control. Also she was prescribed Eliquis 2.5mg PO BID to help prevent a blood clot given her elevated Factor VIII assay lab results now s/p surgery. Patient to follow up with me in office within 1 week, sooner if needed. Grafts/Implants Used: None Complications None
[2020-06-17 10:30] VITALS: BP 114/51; BP 126/67; PULSE 85; RESP 16; TEMP 36.6; O2SAT 95
== END 2020-06-17 10:41 ==
LOC: SDC 05:57 → AC 06:02
PROVIDERS: PCP Student in an Organized Health Care Education/Training Program; Referring Provider Podiatrist; Visit Provider Podiatrist
PROC: (CPT 28285; principal; 2020-06-17 07:15)
DX: M20.41 Other hammer toe(s) (acquired), right foot (principal); E11.40 Type 2 diabetes mellitus with diabetic neuropathy, unspecified; I34.1 Nonrheumatic mitral (valve) prolapse; I10 Essential (primary) hypertension; E78.5 Hyperlipidemia, unspecified; K21.9 Gastro-esophageal reflux disease without esophagitis; F32.9 Major depressive disorder, single episode, unspecified; E66.3 Overweight; Z68.42 Body mass index [BMI] 45.0-49.9, adult; Z79.01 Long term (current) use of anticoagulants; Z79.4 Long term (current) use of insulin; Z79.899 Other long term (current) drug therapy; Z96.41 Presence of insulin pump (external) (internal); Z87.891 Personal history of nicotine dependence
CPT/HCPCS: 01480; 28285 ×2; 73630; 76000; 82962; 88304; 88311; J7120; J2405

== ENCOUNTER → 2020-07-04 16:53 | Outpatient (CLI) | payer MEDICAID, SELFPAY ==
[2020-06-17 06:30] VITALS: BMI 47.9
--- NOTE | 2020-07-04 17:10 | MRI_ITS ---
STUDY: MRI LEFT ANKLE WITHOUT CONTRAST REASON FOR EXAM: Left ankle pain for 2 months, left ankle injury. TECHNIQUE: Standardized fat and water weighted pulse sequences were obtained in all 3 orthogonal planes. COMPARISON: None. FINDINGS: There is mild edema in the medial and lateral subcutis adipose space. There is a very small volume of fluid in the submalleolar posterior tibialis tendon sheath (inversion recovery sagittal image 6). The posterior tibialis tendon is morphologically normal. Normal flexor digitorum longus tendon. Normal flexor hallucis longus tendon. Normal peroneus longus and brevis tendons. Normal tibialis anterior tendon. Normal extensor hallucis longus tendon. Normal extensor digitorum longus tendons. Normal Achilles tendon and teno-osseous insertion. There is chronic plantar fasciitis with thickening of the central cord of the plantar fascia and mild interstitial edema (inversion recovery sagittal images 10-12) and ossifications in the plantar fascia (T1 sagittal images 9-12). There is a small plantar calcaneal enthesophyte. There is atrophy of the abductor digiti minimi muscle with partial fat replacement (T1 sagittal images 15-17). Normal distal tibiofibular syndesmotic ligamentous complex. There is a mild sprain of the anterior talofibular ligament (inversion recovery axial oblique series 9 image 10). Normal calcaneofibular and posterior talofibular ligaments. Normal subtalar ligaments and sinus tarsi. Normal deltoid ligamentous complexes. Normal plantar calcaneonavicular (spring) ligament. Normal tibiotalar articulation. Normal talar dome. Normal posterior subtalar articulation. 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 Normal calcaneocuboid articulation. Normal navicular-cuneiform articulations. There is a low-grade sprain of Lisfranc ligament (inversion recovery axial oblique series 9 image 12). There is a small subchondral bone contusion of the distal cuboid (inversion recovery axial oblique series 9 image 17). There is postoperative artifact at the fifth metatarsal base. MRI/Lower Ext Joint Only (Routine) IMPRESSION: Chronic plantar fasciitis with ossifications in the plantar fascia, without demonstrated soft tissue mass. Mild sprain of the anterior talofibular ligament. Low-grade sprain of Lisfranc ligament. Small bone contusion of the distal cuboid. Atrophy of the abductor digiti minimi muscle. Nonosseous calcaneonavicular coalition. Very mild posterior tibialis tenosynovitis. Electronically Signed: Johnny Ortiz MD at 9:55 EDT Tel , Service support ,
== END ==
PROVIDERS: PCP Student in an Organized Health Care Education/Training Program; Referring Provider Podiatrist; Visit Provider Podiatrist
DX: R22.42 Localized swelling, mass and lump, left lower limb (principal); S93.402A Sprain of unspecified ligament of left ankle, initial encounter; X58.XXXA Exposure to other specified factors, initial encounter; Y93.9 Activity, unspecified; Y92.9 Unspecified place or not applicable; Y99.9 Unspecified external cause status
CPT/HCPCS: 73721

== ENCOUNTER 2021-01-02 20:25 | Emergency (ER) | payer MEDICAID, SELFPAY ==
[2021-01-02 20:26] VITALS: BP 141/71; PULSE 78; RESP 18; TEMP 35.9; O2SAT 98; BMI 47.3
[2021-01-02 20:51] VITALS: BP 135/65; PULSE 78; RESP 16; O2SAT 99
--- NOTE | 2021-01-02 21:04 | EX.ED.DYSGE1 ---
HPI History of Present Illness Chief Complaint: Flank Pain Informant: patient Onset/Context/Timing Onset: Hours Context: Gradual Onset Timing: Continuous Quality: Stabbing Location: Right flank Worsened by: Nothing Relieved by: Nothing Narrative Narrative: Patient presents with right flank pain that began today. Patient states that it has been constant for the past several hours. Patient describes her pain as stabbing. Patient states it is over the right flank and radiates into her right lower abdomen. Patient states nothing makes it worse and nothing makes it better. Patient states it has been constant. Patient admits to nausea but denies any vomiting. Patient admits to some diarrhea but states that is chronic for her. Patient admits to some urinary hesitancy but states that is a side effect of one of her medications. [facility] Medical History Alcohol use Diabetes Diabetes type 2, controlled Gastroparesis GERD (gastroesophageal reflux disease) High cholesterol History of lipoma Irregular heart beat Neuropathy Restless legs Shortness of breath on exertion Vertigo Home Medications atenolol 50 mg PO QHS 11/23/16 [History Last Taken 01/10/19] meclizine 25 - 50 mg PO QHS 11/23/16 [History Last Taken 01/10/19] rosuvastatin 20 mg PO DAILY 11/23/16 [History Last Taken 01/10/19] lansoprazole 30 mg PO QHS 05/13/17 [History Last Taken Unknown] Humulin R U-500 (Conc) Insulin 500 unit/mL subcutaneous soln See Rx Instructions SC BID #20 ml NS 01/07/18 [Rx Last Taken 01/10/19] glucagon (human recombinant) 1 mg solution for injection 1 mg IM ONCE #1 ea 02/12/18 [Rx Last Taken 01/10/19] hydrocodone-acetaminophen 1 tab PO Q6H PRN PRN 3 Days #14 tab 06/17/20 [Rx Last Taken Unknown] gabapentin 1,200 mg PO QHS 01/02/21 [History Last Taken Unknown] gabapentin 900 mg PO BID 01/02/21 [History Last Taken Unknown] levetiracetam 250 mg PO QHS 01/02/21 [History Last Taken Unknown] oxycodone-acetaminophen 1 tab PO Q6H PRN PRN 3 Days #12 tablet 01/02/21 [Rx Last Taken Unknown] Allergy/AdvReac Type Severity Reaction Status Date / Time hydrocodone bitartrate Allergy Itching Verified 06/17/20 06:06 [From Vicodin] latex Allergy Swelling Verified 06/17/20 06:06 oxycodone HCl [From Percocet] Allergy Itching Verified 06/17/20 06:06 Penicillins Allergy Unknown Verified 06/17/20 06:06 propoxyphene napsylate Allergy Unknown Verified 06/17/20 06:06 [From Darvocet-N 100] vancomycin Allergy Unknown Verified 06/17/20 06:06 Family History Mother Arthritis Father Diabetes Heart disease High cholesterol Surgical History History of 3 sections History of fasciotomy History of surgery on arm History of tubal ligation pyloric pop surgery S/P foot surgery, left Social History Smoking Status: Former smoker second hand exposure: No alcohol intake: never substance use type: does not use ROS ROS ED Constitutional Constitutional ED: Denies chills or fever(s) Eyes Eyes: Denies blurry vision or change in vision ENT ENT ED: Denies rhinorrhea or sore throat Cardiovascular Cardiovascular: Denies chest pain or palpitations Respiratory/Chest Respiratory/Chest: Denies cough or dyspnea Gastrointestinal Gastrointestinal: Reports abdominal pain, diarrhea and nausea; Denies vomiting Genitourinary Genitourinary ED: Denies dysuria or hematuria Musculoskeletal Musculoskeletal: Reports back pain; Denies neck pain Integumentary Denies abscess or rash Neurologic Neurologic: Denies headache(s) or weakness Allergic/Immunologic Allergic/Immunologic ED: Denies mouth swelling or urticaria EXAM Physical Exam Const Vital Signs: 01/02/21 20:26 01/02/21 20:51 Temperature 96.7 F L Temperature Source Temporal Pulse Rate 78 78 Respiratory Rate 18 16 Blood Pressure 141/71 H 135/65 H Blood Pressure Mean 94 88 Pulse Ox 98 99 Oxygen Delivery Method Room Air Room Air Positive well nourished, well developed and obese General Appearance ED: well developed Nutritional Appearance: obese HEENT Reports moist mucous membranes Neck supple and no JVD Resp normal respiratory effort and clear to auscultation bilaterally Cardio regular rate, regular rhythm and no murmurs GI normal to inspection, nondistended, normoactive bowel sounds Palpation: soft and tender RLQ and RUQ; Negative for guarding or rebound tenderness present Back/Spine General Back: CVA tenderness right Extremity normal to inspection General Extremety ED: Negative for edema or tenderness General Extremity: Negative for edema Neuro oriented x3, CN's II-XII intact bilaterally and no sensory deficits noted Sensorium / Orientation: alert Motor Exam: strength 5/5 throughout Psych mental status grossly normal Skin no rashes or lesions noted MDM MDM MDM Narrative Medical decision making narrative: Patient was given IV fluids, morphine, and Zofran here. CBC shows a slight leukocytosis of 12.2. Comprehensive metabolic profile was essentially within normal limits. Urinalysis does not show any evidence of urinary tract infection. CT scan of the abdomen and pelvis was obtained. There is a 6 mm stone in the middle one third of the right ureter causing mild right hydronephrosis and mild to moderate hydroureter. Patient is feeling better on reevaluation. Patient was given a prescription for Percocet. Patient was given a referral for urology. Patient was instructed to drink plenty of fluids. Patient was instructed to follow-up in 3 to 5 days. Patient was instructed return if worse in any way. Patient understood and was agreeable with the plan. All questions were answered. Lab Data Attestation: I reviewed the patient's lab results. Labs: Laboratory Results - last 24 hr 01/02/21 01/02/21 01/02/21 20:52 20:52 Unknown WBC 12.2 H RBC 4.85 Hgb 14.4 Hct 43.4 MCV 89.5 MCH 29.7 MCHC 33.2 RDW Std Deviation 42.2 RDW Coeff of Adithya 12.9 Plt Count 309 MPV 9.2 Immature Gran % (Auto) 0.300 Neut % (Auto) 61.8 Lymph % (Auto) 27.5 [place] % (Auto) 8.5 Eos % (Auto) 1.2 Baso % (Auto) 0.7 Absolute Neuts (auto) 7.5 Absolute Lymphs (auto) 3.35 Nucleated RBC % 0 Sodium 139 Potassium 3.7 Chloride 108 H Carbon Dioxide 28.0 Anion Gap 3 L BUN 11 Creatinine 0.85 Estim Creat Clear Calc 134.49 Est GFR (MDRD) Af Amer 91 Est GFR (MDRD) Non-Af 75 BUN/Creatinine Ratio 12.9 Glucose 133 H Calcium 9.2 Total Bilirubin 0.30 AST 11 L ALT 19 Alkaline Phosphatase 69 Total Protein 7.2 Albumin 3.5 Globulin 3.7 Albumin/Globulin Ratio 0.9 Urine Color Yellow Urine Clarity Sl. Cloudy Urine pH 5.0 Ur Specific [place] 1.030 Urine Protein 30 H Urine Glucose (UA) Normal Urine Ketones Negative Urine Occult Blood 250 H Urine Nitrite Negative Urine Bilirubin Negative Urine Urobilinogen Normal Ur Leukocyte Esterase 500 H Urine RBC 5-10 SEEN Urine WBC 0-5 SEEN Ur Squamous Epith Cells 5-10 SEEN Urine Bacteria RARE Urine Mucus 0 SEEN Radiography Diagnostic Testing: Clinical Impression(s) from Imaging Studies Abdomen/Pelvis CT 01/02/21 21:20 IMPRESSION: 1. Mild right hydronephrosis and mild to moderate hydroureter are present due to a 6 mm obstructing stone in the middle one third aspect of the right ureter located 5.52 cm distal to the UPJ. Mild inflammatory stranding is present around the distended ureter. No additional radiopaque stones are seen in the right kidney. Electronically Signed: Humberto Ferguson MD at 22:11 EST , Service support , Discharge Plan Triage Chief Complaint: Flank Pain ED Provider: Don Graham Dx/Rx/DC Orders Clinical Impression: Calculus of right ureter Instructions: ED Kidney Stone w/ Colic Prescriptions: New oxycodone-acetaminophen [oxycodone-acetaminophen] 1 TABLET tablet 1 tab PO Q6H PRN PRN (Reason: Pain) 3 Days Qty: 12 RF: 0 No Action Glucagon Emergency Kit (human) 1 mg recon soln 1 mg IM ONCE Qty: 1 RF: 0 meclizine 25 MG tablet 25 - 50 mg PO QHS RF: 0 atenolol 50 MG tablet 50 mg PO QHS RF: 0 rosuvastatin 20 MG tablet 20 mg PO DAILY RF: 0 lansoprazole 30 MG capsule 30 mg PO QHS RF: 0 hydrocodone-acetaminophen 5-325 mg tablet 1 tab PO Q6H PRN PRN (Reason: pain (scale score 6-10)) 3 Days Qty: 14 RF: 0 levetiracetam 250 mg tablet 250 mg PO QHS RF: 0 gabapentin 300 mg Tablet 900 mg PO BID RF: 0 gabapentin 300 mg Tablet 1,200 mg PO QHS RF: 0 Humulin R U-500 (Conc) Insulin 500 unit/mL solution See Rx Instructions SC BID Qty: 20 RF: 11 Primary Care Provider: Yifan Blum Referrals: Sunni Villaseñor MD [STAFF PHYSICIAN] - 3-5 Days Yifan Blum DO [Primary Care Provider] - 3-5 Days Disposition Disposition: Home, Self Care
[2021-01-02 21:19] LABS: Absolute Lymphocyte Count 3.35 X10^3/uL (0.83-4.51); Absolute Neutrophil Count 7.5 X10^3/uL (2.0-7.7); Basophil# 0.08 X10^3/uL; Basophil% 0.7 % (0-1); Eosinophil# 0.14 X10^3/uL; Eosinophils% 1.2 % (0-5); Hematocrit 43.4 % (37-47); Hemoglobin 14.4 g/dL (12.0-15.0); Lymphocyte # 3.35 X10^3/ul (0.83-4.51); Lymphocyte % 27.5 % (19-41); Mean Corp Hgb Conc 33.2 g/dL (32-36); Mean Corpuscular Hgb 29.7 pg (27.0-32.0); Mean Corpuscular Volume 89.5 fL (81-99); Mean Platelet Vol. 9.2 fl (6.2-12.0); Monocyte# 1.03 X10^3/uL; Monocyte% 8.5 % (0-10); NRBC Flagged by Analyzer 0 % (0-5); Neutrophil # 7.53 X10^3/uL (2.7-7.7); Neutrophil % 61.8 % (47-70); Platelet Count 309 K/mm3 (150-450); RBC Distribution Width CV 12.9 % (11.6-14.6); RBC Distribution Width SD 42.2 fl (35.1-43.9); Red Blood Count 4.85 M/mm3 (4.2-5.4); White Blood Count 12.2 K/mm3 (4.4-11.0)
--- NOTE | 2021-01-02 21:20 | CT_ITS ---
STUDY: CT ABDOMEN AND PELVIS WITHOUT CONTRAST REASON FOR EXAM: Female, 50 years old. Right flank pain RADIATION DOSAGE (If Supplied By Facility): CTDIvol = ( 22.99 ) mGy, DLP = ( 1143.13 ) mGycm TECHNIQUE: Transaxial images were obtained from the dome of the diaphragm to the symphysis pubis without oral contrast, and without intravenous contrast. Sagittal and coronal images were reconstructed. Individualized dose optimization techniques were used for this CT. COMPARISON: CT of the abdomen and pelvis dated October 01, 2013 FINDINGS: The visualized lung bases are unremarkable. The visualized portions of the heart are within normal limits. Normal liver. Normal gallbladder and extrahepatic biliary system. Normal spleen. Normal pancreas. Normal bilateral adrenal glands. Mild right hydronephrosis and mild to moderate hydroureter are present due to a 6 mm obstructing stone in the middle one third aspect of the right ureter located 5.52 cm distal to the UPJ. Mild inflammatory stranding is present around the distended ureter. No additional radiopaque stones are seen in the right kidney. Normal left kidney. Normal visualized stomach. Normal small intestine. There are multiple colonic diverticula consistent with diverticulosis. The appendix is visualized and appears normal. Normal abdominal aorta. Normal inferior vena cava. Normal retroperitoneum. Normal urinary bladder. Procedure unremarkable uterus and adnexa. Normal abdominal wall. There are minor degenerative changes of the visualized lumbar spine. CT/Abdomen/Pelvis without Cont IMPRESSION: 1. Mild right hydronephrosis and mild to moderate hydroureter are present due to a 6 mm obstructing stone in the middle one third aspect of the right ureter located 5.52 cm distal to the UPJ. Mild inflammatory stranding is present around the distended ureter. No additional radiopaque stones are seen in the right kidney. Electronically Signed: Humberto Ferguson MD at 22:11 EST , Service support ,
[2021-01-02 21:35] LABS: ALB/GLOB Ratio 0.9 RATIO (0.9-2.4); AST(SGOT) 11 U/L (15-37); Alanine Aminotransfer ALT/SGPT 19 U/L (13-56); Albumin, Serum 3.5 g/dL (3.2-5.0); Alkaline Phosphatase 69 U/L (45-117); Anion Gap 3 (5-15); BUN 11 mg/dL (7-18); BUN/Creat Ratio 12.9 RATIO (10-20); Calcium,Total 9.2 mg/dL (8.5-10.1); Chloride 108 mmol/L (98-107); Creatinine, Serum 0.85 mg/dL (0.55-1.02); EST Glomerular Filtration Rate 75 mL/min (>60); Est Glom Filt Rate - Afr Amer 91 mL/min (>60); Estimated Creatinine Clearance 134.49 ml/min; Globulin 3.7 g/dL (2.2-4.2); Glucose 133 mg/dL (74-106); Potassium 3.7 mmol/L (3.5-5.1); Protein, Total 7.2 g/dL (6.4-8.2); Sodium Level 139 mmol/L (136-145)
[2021-01-02] MEDS: Ondansetron 4 MG/2 ML Vial IV (21:36)
[2021-01-02] MEDS: 0.9% Normal Saline 1,000 ML 1000 ML IV (21:36)
[2021-01-02] MEDS: Morphine 4 MG/ML Syringe IV ×2 (21:37→23:46)
[2021-01-02 21:50] LABS: Mucous, Urine 0 SEEN /hpf (<or=2+)
[2021-01-02 21:56] LABS: Color, Urine Yellow (Yellow); Glucose, Dipstick Normal (Normal); Ketone-Dipstick Negative (Negative); Leukocyte Esterase-Dipstick 500 /ul (Negative); Nitrite-Dipstick Negative (Negative); Occult Blood-Urine 250 /ul (Negative); Protein-Dipstick 30 mg/dl (Negative); Urine Bilirubin Dipstick Negative (Negative); Urine Clarity Sl. Cloudy (Clear); Urine Urobilinogen Normal (Normal)
[2021-01-02 22:19] LABS: Red Blood Cells-Urine 5-10 SEEN /hpf (0-5); Squamous Epithelial Cells - UA 5-10 SEEN /hpf (5-10); White Blood Cells 0-5 SEEN /hpf (0-5)
[2021-01-02 22:20] LABS: Bacteria RARE /hpf (None Seen)
[2021-01-02 23:49] VITALS: BP 139/82; PULSE 88; RESP 16; O2SAT 98
== END 2021-01-02 23:50 | disposition home or self-care (01) ==
PROVIDERS: Emergency Provider Emergency Medicine; PCP Student in an Organized Health Care Education/Training Program
DX: N13.2 Hydronephrosis with renal and ureteral calculous obstruction (principal); K52.9 Noninfective gastroenteritis and colitis, unspecified; R39.11 Hesitancy of micturition; E11.40 Type 2 diabetes mellitus with diabetic neuropathy, unspecified; K21.9 Gastro-esophageal reflux disease without esophagitis; E78.00 Pure hypercholesterolemia, unspecified; G25.81 Restless legs syndrome; Z79.899 Other long term (current) drug therapy; Z87.891 Personal history of nicotine dependence; Z79.4 Long term (current) use of insulin
CPT/HCPCS: 74176; 80053; 81001; 85025; 96361; 96374; 96375; 96376; 99284; J7030; A4216; J2405

== ENCOUNTER 2021-01-14 21:04 | Inpatient (IN) | payer MEDICAID, SELFPAY ==
[2021-01-14 21:05] VITALS: BP 164/88; PULSE 77; RESP 18; TEMP 36.6; O2SAT 97; BMI 43.6
[2021-01-14 21:57] LABS: Internal QC Validated? YES +Cl - CLEAR BKGD; Pregnancy, Serum, hCG Quali. NEGATIVE Negative
--- NOTE | 2021-01-14 22:06 | CT_ITS ---
STUDY: CT ABDOMEN AND PELVIS WITHOUT CONTRAST REASON FOR EXAM: Female, 50 years old. Kidney Stone RADIATION DOSAGE (If Supplied By Facility): CTDIvol = ( 23.17 ) mGy, DLP = ( 1105.41 ) mGycm TECHNIQUE: Transaxial images were obtained from the dome of the diaphragm to the symphysis pubis without oral contrast, and without intravenous contrast. Sagittal and coronal images were reconstructed. Individualized dose optimization techniques were used for this CT. COMPARISON: 01/02/2021 FINDINGS: The visualized lung bases are unremarkable. The visualized portions of the heart are within normal limits. Normal liver. Normal gallbladder and extrahepatic biliary system. Normal spleen. Normal pancreas. Normal bilateral adrenal glands. Mild/moderate hydronephrosis with right hydroureter. STONE near the right UVJ measuring 5 mm. Normal left kidney. Normal visualized stomach. Normal small intestine. There are multiple colonic diverticula consistent with diverticulosis. The appendix is visualized and appears normal. Normal abdominal aorta. Normal inferior vena cava. Normal retroperitoneum. Normal urinary bladder. Normal visualized uterus. Normal abdominal wall. Normal osseous structures. CT/Abdomen/Pelvis without Cont IMPRESSION: Mild right hydronephrosis with right hydroureter and stone near the right UVJ as above. Stone has migrated distally as compared to prior exam Electronically Signed: Peter Page DO at 22:47 EST Tel , Service support ,
--- NOTE | 2021-01-14 22:06 | EDS_ITS ---
HPI HPI - Female History of Present Illness Chief Complaint: Flank Pain Narrative Narrative: 50-year-old female with right flank pain for a couple of weeks. She states she previous had a CT which showed a 6 mm ureteral stone. Patient has followed up with Dr. Villaseñor. She plans to do surgery on the 23 January. Patient states that she still does have dysuria. Patient states that she has been taking Percocet at home but today this is not touching her pain. She was told if she has increasing pain she should come to the emergency room. Patient denies any fever or chills. [facility] Medical History Alcohol use Diabetes Diabetes type 2, controlled Gastroparesis GERD (gastroesophageal reflux disease) High cholesterol History of lipoma Irregular heart beat Kidney stone Neuropathy Restless legs Shortness of breath on exertion Vertigo Home Medications atenolol 50 mg PO QHS 11/23/16 [History Last Taken 01/14/21] meclizine 50 mg PO QHS 11/23/16 [History Last Taken 01/14/21] rosuvastatin 20 mg PO DAILY 11/23/16 [History Last Taken 01/14/21] lansoprazole 30 mg PO QHS 05/13/17 [History Last Taken 01/14/21] Humulin R U-500 (Conc) Insulin 500 unit/mL subcutaneous soln See Rx Instructions SC BID #20 ml NS 01/07/18 [Rx Last Taken 01/10/19] glucagon (human recombinant) 1 mg solution for injection 1 mg IM ONCE #1 ea 02/12/18 [Rx Last Taken 01/10/19] hydrocodone-acetaminophen 1 tab PO Q6H PRN PRN 3 Days #14 tab 06/17/20 [Rx Last Taken 01/13/21] gabapentin 1,200 mg PO QHS 01/02/21 [History Last Taken 01/14/21] gabapentin 900 mg PO BID 01/02/21 [History Last Taken 01/14/21] levetiracetam [Keppra] 250 mg PO QHS 01/02/21 [History Last Taken 01/05/21] linaclotide [Linzess] 72 mcg PO DAILY 01/14/21 [History Last Taken 01/14/21] Allergy/AdvReac Type Severity Reaction Status Date / Time hydrocodone bitartrate Allergy Itching Verified 01/14/21 21:10 [From Vicodin] latex Allergy Swelling Verified 01/14/21 21:10 oxycodone HCl [From Percocet] Allergy Itching Verified 01/14/21 21:10 Penicillins Allergy Unknown Verified 01/14/21 21:10 propoxyphene napsylate Allergy Unknown Verified 01/14/21 21:10 [From Darvocet-N 100] vancomycin Allergy Unknown Verified 01/14/21 21:10 Family History Mother Arthritis Father Diabetes Heart disease High cholesterol Surgical History History of 3 sections History of fasciotomy History of surgery on arm History of tubal ligation pyloric pop surgery S/P foot surgery, left Social History Smoking Status: Former smoker second hand exposure: No alcohol intake: never substance use type: does not use ROS ROS ED Constitutional Constitutional ED: Denies chills, fever(s) or other Eyes Eyes: Denies blurry vision or change in vision ENT ENT ED: Denies rhinorrhea or sore throat Cardiovascular Cardiovascular: Denies chest pain or palpitations Respiratory/Chest Respiratory/Chest: Denies cough or dyspnea Gastrointestinal Gastrointestinal: Reports abdominal pain and nausea Genitourinary Genitourinary ED: Reports dysuria and hematuria Musculoskeletal Musculoskeletal: Denies arthralgias or myalgias Integumentary Denies abscess or rash Neurologic Neurologic: Denies headache(s) or paresthesias EXAM Physical Exam Const Vital Signs: 01/14/21 21:05 Temperature 97.9 F Temperature Source Temporal Pulse Rate 77 Respiratory Rate 18 Blood Pressure 164/88 H Blood Pressure Mean 113 Pulse Ox 97 Oxygen Delivery Method Room Air Positive well nourished General Appearance ED: NAD; Negative for pallor HEENT Reports moist mucous membranes Negative for trauma Eyes PERRL and EOMs intact bilaterally Resp normal respiratory effort and clear to auscultation bilaterally Cardio regular rate and regular rhythm Back/Spine General Back: CVA tenderness right Extremity normal to inspection and full ROM Neuro oriented x3 and CN's II-XII intact bilaterally Sensorium / Orientation: alert Psych mental status grossly normal Skin General Skin Exam: Negative for jaundice or pallor MDM MDM MDM Narrative Medical decision making narrative: 50-year-old female presenting with right flank pain. She has a history of kidney stone which he states is 6 mm. She is not having control of her pain today with Percocet. She has nausea and she is not vomiting. She does admit to dysuria. Patient was given morphine and Zofran and this did improve her pain. I obtain blood work and her CBC shows a white blood cell count of 9.8, hemoglobin 14.5, crit 40.9. Renal function is normal. Potassium slightly low at 3.4. Serum hCG is negative. Urinalysis is positive for occult blood, 500 leukocyte esterase, 3+ bacteria over this is contaminated. I did discuss this with Dr. Villaseñor And since she is unable to control her pain at home she will admit her tonight. Patient is amenable to this. Impression: 1. 5 mm ureteral stone 2. Hematuria 3. Hydronephrosis Lab Data Attestation: I reviewed the patient's lab results. Labs: Laboratory Results - last 24 hr 01/14/21 01/14/21 01/14/21 21:25 21:25 21:25 WBC 9.8 RBC 4.86 Hgb 14.5 Hct 42.9 MCV 88.3 MCH 29.8 MCHC 33.8 RDW Std Deviation 41.1 RDW Coeff of Adithya 12.7 Plt Count 281 MPV 9.1 Immature Gran % (Auto) 0.300 Neut % (Auto) 53.1 Lymph % (Auto) 35.0 [place] % (Auto) 9.4 Eos % (Auto) 1.5 Baso % (Auto) 0.7 Absolute Neuts (auto) 5.2 Absolute Lymphs (auto) 3.42 Nucleated RBC % 0 Sodium 140 Potassium 3.4 L Chloride 107 Carbon Dioxide 30.0 Anion Gap 3 L BUN 9 Creatinine 0.88 Estim Creat Clear Calc 119.61 Est GFR (MDRD) Af Amer 88 Est GFR (MDRD) Non-Af 72 BUN/Creatinine Ratio 10.2 Glucose 108 H Calcium 9.3 Serum , Qual NEGATIVE Urine Color Urine Clarity Urine pH Ur Specific [place] Urine Protein Urine Glucose (UA) Urine Ketones Urine Occult Blood Urine Nitrite Urine Bilirubin Urine Urobilinogen Ur Leukocyte Esterase Urine RBC Urine WBC Ur Squamous Epith Cells Urine Bacteria Urine Mucus 01/14/21 22:20 WBC RBC Hgb Hct MCV MCH MCHC RDW Std Deviation RDW Coeff of Adithya Plt Count MPV Immature Gran % (Auto) Neut % (Auto) Lymph % (Auto) [place] % (Auto) Eos % (Auto) Baso % (Auto) Absolute Neuts (auto) Absolute Lymphs (auto) Nucleated RBC % Sodium Potassium Chloride Carbon Dioxide Anion Gap BUN Creatinine Estim Creat Clear Calc Est GFR (MDRD) Af Amer Est GFR (MDRD) Non-Af BUN/Creatinine Ratio Glucose Calcium Serum , Qual Urine Color Yellow Urine Clarity Clear Urine pH 6.0 Ur Specific [place] 1.020 Urine Protein 30 H Urine Glucose (UA) 50 H Urine Ketones Negative Urine Occult Blood 50 H Urine Nitrite Negative Urine Bilirubin Negative Urine Urobilinogen 1 H Ur Leukocyte Esterase 500 H Urine RBC 0-5 SEEN Urine WBC 25-50 SEEN Ur Squamous Epith Cells 5-10 SEEN Urine Bacteria 3+ Urine Mucus 0 SEEN Radiography Diagnostic Testing: Clinical Impression(s) from Imaging Studies Abdomen/Pelvis CT 01/14/21 22:06 IMPRESSION: Mild right hydronephrosis with right hydroureter and stone near the right UVJ as above. Stone has migrated distally as compared to prior exam Electronically Signed: Peter Page DO at 22:47 EST Tel , Service support , Discharge Plan Triage Chief Complaint: Flank Pain ED Provider: Babak Snow Dx/Rx/DC Orders Primary Care Provider: Yifan Blum Disposition Discharge Date/Time: 01/14/21 23:42
[2021-01-14] MEDS: Ondansetron 4 MG/2 ML Vial IV (22:16)
[2021-01-14] MEDS: Morphine 4 MG/ML Syringe IV (22:16)
[2021-01-14] MEDS: Ketorolac 15 MG/ML Vial IV (22:17)
[2021-01-14 22:26] LABS: Mucous, Urine 0 SEEN /hpf (<or=2+)
[2021-01-14 22:31] LABS: Color, Urine Yellow (Yellow); Glucose, Dipstick 50 mg/dl (Normal); Ketone-Dipstick Negative (Negative); Leukocyte Esterase-Dipstick 500 /ul (Negative); Nitrite-Dipstick Negative (Negative); Occult Blood-Urine 50 /ul (Negative); Protein-Dipstick 30 mg/dl (Negative); Urine Bilirubin Dipstick Negative (Negative); Urine Clarity Clear (Clear); Urine Urobilinogen 1 mg/dl (Normal)
[2021-01-14 22:36] LABS: Absolute Lymphocyte Count 3.42 X10^3/uL (0.83-4.51); Absolute Neutrophil Count 5.2 X10^3/uL (2.0-7.7); Basophil# 0.07 X10^3/uL; Basophil% 0.7 % (0-1); Eosinophil# 0.15 X10^3/uL; Eosinophils% 1.5 % (0-5); Hematocrit 42.9 % (37-47); Hemoglobin 14.5 g/dL (12.0-15.0); Lymphocyte # 3.42 X10^3/ul (0.83-4.51); Mean Corp Hgb Conc 33.8 g/dL (32-36); Mean Corpuscular Hgb 29.8 pg (27.0-32.0); Mean Corpuscular Volume 88.3 fL (81-99); Mean Platelet Vol. 9.1 fl (6.2-12.0); Monocyte# 0.92 X10^3/uL; Monocyte% 9.4 % (0-10); NRBC Flagged by Analyzer 0 % (0-5); Neutrophil # 5.17 X10^3/uL (2.7-7.7); Neutrophil % 53.1 % (47-70); Platelet Count 281 K/mm3 (150-450); RBC Distribution Width CV 12.7 % (11.6-14.6); RBC Distribution Width SD 41.1 fl (35.1-43.9); Red Blood Count 4.86 M/mm3 (4.2-5.4); White Blood Count 9.8 K/mm3 (4.4-11.0)
[2021-01-14 22:38] LABS: Anion Gap 3 (5-15); BUN 9 mg/dL (7-18); BUN/Creat Ratio 10.2 RATIO (10-20); Calcium,Total 9.3 mg/dL (8.5-10.1); Chloride 107 mmol/L (98-107); Creatinine, Serum 0.88 mg/dL (0.55-1.02); EST Glomerular Filtration Rate 72 mL/min (>60); Est Glom Filt Rate - Afr Amer 88 mL/min (>60); Estimated Creatinine Clearance 119.61 ml/min; Glucose 108 mg/dL (74-106); Potassium 3.4 mmol/L (3.5-5.1); Sodium Level 140 mmol/L (136-145)
[2021-01-14 22:55] LABS: Bacteria 3+ /hpf (None Seen); Red Blood Cells-Urine 0-5 SEEN /hpf (0-5); Squamous Epithelial Cells - UA 5-10 SEEN /hpf (5-10); White Blood Cells 25-50 SEEN /hpf (0-5)
[2021-01-14 23:35] VITALS: BP 149/87; PULSE 92; RESP 16; TEMP 36.9; O2SAT 96
[2021-01-14 23:57] VITALS: BMI 68.6
[2021-01-15 00:30] VITALS: BP 113/63; PULSE 68; RESP 18; TEMP 37.4; O2SAT 99
[2021-01-15] MEDS: Dextrose 5%-Lactated Ringers 1,000 ML 125 ML IV ×3 (03:05→20:40)
[2021-01-15] MEDS: Tamsulosin HCl 0.4 MG Capsule PO (03:06)
[2021-01-15 03:20] VITALS: BP 96/46; PULSE 61; RESP 18; TEMP 36.8; O2SAT 97
[2021-01-15] MEDS: Morphine 2 MG/ML Syringe 3 MG IV (05:57)
[2021-01-15] MEDS: 0.9% Saline Lock 10 ML Syringe IV ×2 (06:00→21:23)
[2021-01-15 07:09] LABS: Absolute Lymphocyte Count 2.21 X10^3/uL (0.83-4.51); Absolute Neutrophil Count 4.9 X10^3/uL (2.0-7.7); Basophil# 0.06 X10^3/uL; Basophil% 0.7 % (0-1); Eosinophil# 0.13 X10^3/uL; Eosinophils% 1.6 % (0-5); Hemoglobin 13.9 g/dL (12.0-15.0); Lymphocyte # 2.21 X10^3/ul (0.83-4.51); Lymphocyte % 26.6 % (19-41); Mean Corp Hgb Conc 33.9 g/dL (32-36); Mean Corpuscular Hgb 30.1 pg (27.0-32.0); Mean Corpuscular Volume 88.7 fL (81-99); Mean Platelet Vol. 8.8 fl (6.2-12.0); Monocyte# 0.94 X10^3/uL; Monocyte% 11.3 % (0-10); NRBC Flagged by Analyzer 0 % (0-5); Neutrophil # 4.94 X10^3/uL (2.7-7.7); Neutrophil % 59.6 % (47-70); Platelet Count 225 K/mm3 (150-450); RBC Distribution Width CV 12.9 % (11.6-14.6); RBC Distribution Width SD 41.9 fl (35.1-43.9); Red Blood Count 4.62 M/mm3 (4.2-5.4); White Blood Count 8.3 K/mm3 (4.4-11.0)
[2021-01-15 07:46] LABS: Anion Gap 5 (5-15); BUN 9 mg/dL (7-18); BUN/Creat Ratio 9.5 RATIO (10-20); Calcium,Total 8.9 mg/dL (8.5-10.1); Chloride 109 mmol/L (98-107); Creatinine, Serum 0.94 mg/dL (0.55-1.02); EST Glomerular Filtration Rate 67 mL/min (>60); Est Glom Filt Rate - Afr Amer 81 mL/min (>60); Glucose 92 mg/dL (74-106); Potassium 3.8 mmol/L (3.5-5.1); Sodium Level 141 mmol/L (136-145)
[2021-01-15] MEDS: oxyCODONE 5 MG Tablet 10 MG PO ×2 (08:34→21:00)
[2021-01-15 09:20] VITALS: BP 123/76; PULSE 82; RESP 18; TEMP 36.4; O2SAT 97
[2021-01-15] MEDS: Cefazolin 2 GM in 0.9% Normal Saline 100 ML IV ×3 (09:47→21:01)
[2021-01-15] MEDS: Gabapentin 300 MG Capsule 900 MG PO (09:48)
[2021-01-15] MEDS: Glucerna Shake 120 ML LIQUID PO ×2 (13:30→21:27)
[2021-01-15 14:54] VITALS: BP 112/76; PULSE 94; RESP 18; TEMP 37; O2SAT 97
[2021-01-15 16:41] LABS: Bedside Glucose 81 mg/dL (70-110)
--- NOTE | 2021-01-15 16:51 | PCM.HP.STD ---
HPI - General General Date of Admission: 01/15/21 HPI Narrative LISA RODRIGUEZ, is a 50 F who presented to the emergency room last night with uncontrolled pain secondary to a known right ureteral calculus. She is already in process of having scheduled for surgical intervention next week. Due to the significant pain, evidence of urinary tract infection nausea and vomiting, she was admitted last night for supportive care and possible definitive management. She is still having right-sided abdominal pain that radiates into her back, although she is feeling better than yesterday. FORMERLY [facility] Medical History (Updated 01/15/21 @ 16:[address] Sunni Villaseñor MD) Alcohol use Diabetes Diabetes type 2, controlled Gastroparesis GERD (gastroesophageal reflux disease) High cholesterol History of lipoma Irregular heart beat Kidney stone Neuropathy Restless legs Shortness of breath on exertion Ureteral calculus, right Urinary tract infection Vertigo Home Medications atenolol 50 mg PO QHS 11/23/16 [History Last Taken 01/14/21] meclizine 50 mg PO QHS 11/23/16 [History Last Taken 01/14/21] rosuvastatin 20 mg PO DAILY 11/23/16 [History Last Taken 01/14/21] lansoprazole 30 mg PO QHS 05/13/17 [History Last Taken 01/14/21] Humulin R U-500 (Conc) Insulin 500 unit/mL subcutaneous soln See Rx Instructions SC BID #20 ml NS 01/07/18 [Rx Last Taken 01/10/19] glucagon (human recombinant) 1 mg solution for injection 1 mg IM ONCE #1 ea 02/12/18 [Rx Last Taken 01/10/19] hydrocodone-acetaminophen 1 tab PO Q6H PRN PRN 3 Days #14 tab 06/17/20 [Rx Last Taken 01/13/21] gabapentin 1,200 mg PO QHS 01/02/21 [History Last Taken 01/14/21] gabapentin 900 mg PO BID 01/02/21 [History Last Taken 01/14/21] levetiracetam [Keppra] 250 mg PO QHS 01/02/21 [History Last Taken 01/05/21] linaclotide [Linzess] 72 mcg PO DAILY 01/14/21 [History Last Taken 01/14/21] Allergy/AdvReac Type Severity Reaction Status Date / Time hydrocodone bitartrate Allergy Itching Verified 01/14/21 21:10 [From Vicodin] latex Allergy Swelling Verified 01/14/21 21:10 oxycodone HCl [From Percocet] Allergy Itching Verified 01/14/21 21:10 Penicillins Allergy Unknown Verified 01/14/21 21:10 propoxyphene napsylate Allergy Unknown Verified 01/14/21 21:10 [From Darvocet-N 100] vancomycin Allergy Unknown Verified 01/14/21 21:10 Family History Mother Arthritis Father Diabetes Heart disease High cholesterol Surgical History History of 3 sections History of fasciotomy History of surgery on arm History of tubal ligation pyloric pop surgery S/P foot surgery, left Social History Smoking Status: Former smoker second hand exposure: No alcohol intake: never substance use type: does not use ROS ROS Narrative Review of systems is positive for nausea, vomiting, right abdominal and flank pain and dysuria. T-max 99. No hematuria. There is no chest pain, shortness of breath, cough, wheezing, rash, numbness, tingling, other neurologic, psychiatric, endocrine or hematologic complaints. Vital Signs Vital Signs Vital Signs: 01/14/21 21:05 01/14/21 23:35 01/14/21 23:57 Temperature 97.9 F 98.4 F Temperature Source Temporal Temporal Pulse Rate 77 92 Respiratory Rate 18 16 Respiratory Effort Normal Non-Labored Respiratory Depth Respiratory Pattern Blood Pressure 164/88 H 149/87 H Blood Pressure Mean 113 107 Blood Pressure Source Blood Pressure Position Blood Pressure Location Pulse Ox 97 96 Oxygen Delivery Method Room Air Room Air Room Air 01/15/21 00:30 01/15/21 03:20 01/15/21 09:00 Temperature 99.3 F H 98.2 F Temperature Source Oral Oral Pulse Rate 68 61 Respiratory Rate 18 18 Respiratory Effort Normal Non-Labored Respiratory Depth Normal Respiratory Pattern Normal Blood Pressure 113/63 96/46 L Blood Pressure Mean 79 62 Blood Pressure Source Monitor Monitor Blood Pressure Position Semi-Fowlers Semi-Fowlers Blood Pressure Location Right Arm Left Arm Pulse Ox 99 97 Oxygen Delivery Method Room Air Room Air Room Air 01/15/21 09:20 01/15/21 14:54 01/15/21 15:17 Temperature 97.5 F L 98.6 F Temperature Source Oral Oral Pulse Rate 82 94 Respiratory Rate 18 18 Respiratory Effort Normal Non-Labored Respiratory Depth Normal Respiratory Pattern Normal Blood Pressure 123/76 H 112/76 Blood Pressure Mean 91 88 Blood Pressure Source Monitor Monitor Blood Pressure Position Semi-Fowlers Semi-Fowlers Blood Pressure Location Left Arm Left Arm Pulse Ox 97 97 Oxygen Delivery Method Room Air Room Air Room Air Weight Weight: 106.4 kg Body Mass Index (BMI) 68.6 Physical Exam Narrative Alert and oriented x3, in no acute distress. Abdomen is soft. There is no Veras catheter. CVA tenderness on the right. Neck supple General: trachea midline Chest Chest: symmetrical chest wall rise Resp normal respiratory effort, normal air movement, no retractions and no use of accessory muscles Extremity normal to inspection Skin no rashes or lesions noted, no wounds, no jaundice, no petechiae and no mottling Neuro oriented x3, CN's II-XII intact bilaterally and moves all extremities Psych mental status grossly normal, thought process normal and cooperative Results Lab / Micro Data Result Diagrams: 01/15/21 06:46 01/15/21 06:46 Labs: Laboratory Results - last 24 hr 01/14/21 21:25: Serum , Qual NEGATIVE 01/14/21 21:25: WBC 9.8, RBC 4.86, Hgb 14.5, Hct 42.9, MCV 88.3, MCH 29.8, MCHC 33.8, RDW Std Deviation 41.1, RDW Coeff of Adithya 12.7, Plt Count 281, MPV 9.1, Immature Gran % (Auto) 0.300, Neut % (Auto) 53.1, Lymph % (Auto) 35.0, [place] % (Auto) 9.4, Eos % (Auto) 1.5, Baso % (Auto) 0.7, Absolute Neuts (auto) 5.2, Absolute Lymphs (auto) 3.42, Nucleated RBC % 0 01/14/21 21:25: Sodium 140, Potassium 3.4 L, Chloride 107, Carbon Dioxide 30.0, Anion Gap 3 L, BUN 9, Creatinine 0.88, Estim Creat Clear Calc 119.61, Est GFR (MDRD) Af Amer 88, Est GFR (MDRD) Non-Af 72, BUN/Creatinine Ratio 10.2, Glucose 108 H, Calcium 9.3 01/14/21 22:20: Urine Color Yellow, Urine Clarity Clear, Urine pH 6.0, Ur Specific [place] 1.020, Urine Protein 30 H, Urine Glucose (UA) 50 H, Urine Ketones Negative, Urine Occult Blood 50 H, Urine Nitrite Negative, Urine Bilirubin Negative, Urine Urobilinogen 1 H, Ur Leukocyte Esterase 500 H, Urine RBC 0-5 SEEN, Urine WBC 25-50 SEEN, Ur Squamous Epith Cells 5-10 SEEN, Urine Bacteria 3+, Urine Mucus 0 SEEN 01/15/21 06:46: WBC 8.3, RBC 4.62, Hgb 13.9, Hct 41.0, MCV 88.7, MCH 30.1, MCHC 33.9, RDW Std Deviation 41.9, RDW Coeff of Adithya 12.9, Plt Count 225, MPV 8.8, Immature Gran % (Auto) 0.200, Neut % (Auto) 59.6, Lymph % (Auto) 26.6, [place] % (Auto) 11.3 H, Eos % (Auto) 1.6, Baso % (Auto) 0.7, Absolute Neuts (auto) 4.9, Absolute Lymphs (auto) 2.21, Nucleated RBC % 0 01/15/21 06:46: Sodium 141, Potassium 3.8, Chloride 109 H, Carbon Dioxide 27.0, Anion Gap 5, BUN 9, Creatinine 0.94, Estim Creat Clear Calc 121.60, Est GFR (MDRD) Af Amer 81, Est GFR (MDRD) Non-Af 67, BUN/Creatinine Ratio 9.5 L, Glucose 92, Calcium 8.9 01/15/21 11:09: POC Glucose 81 Radiology Impression Abdomen/Pelvis CT 01/14/21 22:06 IMPRESSION: Mild right hydronephrosis with right hydroureter and stone near the right UVJ as above. Stone has migrated distally as compared to prior exam Electronically Signed: Peter Page DO at 22:47 EST Tel , Service support , Assessment & Plan Assessment/Plan (1) Ureteral calculus, right: (2) Urinary tract infection: PLAN: Continue supportive care, [place] plan for surgical intervention after office hours tomorrow if stone does not pass ok for breakfast
[2021-01-15 17:11] LABS: Bedside Glucose 194 mg/dL (70-110)
[2021-01-15 20:55] VITALS: BP 93/50; PULSE 84; RESP 18; TEMP 36.8; O2SAT 94
[2021-01-15] MEDS: Gabapentin 600 MG Tablet 1200 MG PO (21:02)
[2021-01-15] MEDS: Pantoprazole Sodium 40 MG Tablet PO (21:02)
[2021-01-15] MEDS: levETIRAcetam 250 MG Tablet PO (21:02)
[2021-01-16] VITALS (9 sets, daily range): BP systolic 103–128; BP diastolic 53–74; PULSE 79–89; RESP 14–18; TEMP 36.1–37.1; O2SAT 93–100; BMI 68.6
[2021-01-16] MEDS: Dextrose 5%-Lactated Ringers 1,000 ML 125 ML IV (05:56)
[2021-01-16] MEDS: Cefazolin 2 GM in 0.9% Normal Saline 100 ML IV ×2 (05:57→13:45)
--- NOTE | 2021-01-16 06:00 | EKG12_ITS ---
Test Reason : AM EKG Blood Pressure : / mmHG Vent. Rate : 085 BPM Atrial Rate : 085 BPM P-R Int : 192 ms QRS Dur : 082 ms QT Int : 366 ms P-R-T Axes : 062 020 038 degrees QTc Int : 435 ms Normal sinus rhythm Normal ECG When compared with ECG of 11-JUN-2008 07:07, MANUAL COMPARISON REQUIRED, DATA IS UNCONFIRMED Confirmed by NEHA MCQUEEN, TJ ([id number]), newspaper copy editor YARELI CHEN ([id number]) on 01/17/2021 10:10:17 AM Referred By: ZITA Confirmed By:TJ SOLOMON MD
[2021-01-16 06:40] LABS: Anion Gap 7 (5-15); BUN 10 mg/dL (7-18); BUN/Creat Ratio 6.2 RATIO (10-20); Calcium,Total 9.1 mg/dL (8.5-10.1); Chloride 109 mmol/L (98-107); Creatinine, Serum 1.62 mg/dL (0.55-1.02); EST Glomerular Filtration Rate 36 mL/min (>60); Est Glom Filt Rate - Afr Amer 43 mL/min (>60); Estimated Creatinine Clearance 70.56 ml/min; Glucose 107 mg/dL (74-106); Potassium 3.9 mmol/L (3.5-5.1); Sodium Level 142 mmol/L (136-145)
[2021-01-16 07:49] LABS: Hemoglobin A1c 5.8 % (3.8-5.6)
--- NOTE | 2021-01-16 10:52 | NURSING ---
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
[2021-01-16] MEDS: 0.9% Saline Lock 10 ML Syringe IV (10:53)
--- NOTE | 2021-01-16 12:33 | NURSING ---
pt states she has been fully vaccinated with COVID 19 vaccine and also received her booster in December 2020.
--- NOTE | 2021-01-16 13:50 | CASEMGMT ---
RN CM Face to Face with patient for initial transition planning/care coordination assessment. RN CM introduced self and role at [facility]. Patient lying in bed, alert and oriented. Patient willing to participate in assessment and is able to answer all questions appropriately. Care providers, pharmacy, and demographics verified. Patient wishes to discharge home, denies need for home health at this time. Patient states she has no further needs or concerns at this time. CM to follow for discharge planning needs that may arise. PCP: Kulwant Specialists: Afsaneh, Satellite Technician Preferred Pharmacy: [facility] Insurance: [email or web address] Prescription Benefit: yes Living Will/HPOA: yes, Brent Reis LNOK: , 3 children Living Arrangements: patient lives with in a 2 story home with bed and bath on first floor. 3 steps and railing to enter the home. Patient states she in independent at home. Transportation: self/ DME/HHC: patient states she has cane, shower chair, and grab bars at home. Patient states she has glucometer and insulin at home. Disposition Plan: Patient to discharge home with family support and follow-up plans in place. Chasity JARRETT, RN, CM
--- NOTE | 2021-01-16 15:30 | WOUNDNOTE ---
Pt taken to OR via bed.
--- NOTE | 2021-01-16 16:12 | SUR.PREOP ---
patient's BGL 118 on their monitor; dr. kaba informed and does not want a finger stick.
--- NOTE | 2021-01-16 16:29 | PCM.OPRPT ---
Problems Associated Problem List Diagnoses (1) Ureteral calculus, right: Report of Operation Date of Procedure: 01/16/21 Pre-Operative Diagnosis: right ureteral calculus Post-Operative Diagnosis: same Surgery/Procedure Performed:: cystoscopy with right ureteroscopy, laser lithotripsy, right ureteral stent insertion Surgeon: Sunni Villaseñor Type of Anesthesia: General Specimen's removed: Stone fragments Description of Procedure: The patient is a 50-year-old female with a right ureteral calculus admitted Saturday with uncontrolled pain. Her CT scan revealed that the stone had migrated distally to the UVJ with increased hydronephrosis. A urine culture was positive for normal jeff and she was treated with Ancef. She now presents for definitive surgical intervention. Informed consent was obtained. The patient was taken to the operating room placed on the operating room table. Anesthesia monitored the head, neck, airway, IV access and vital signs throughout the case. Once anesthesia was appropriately administered, the patient was placed into dorsal lithotomy position was prepped and draped in usual sterile fashion. The cystoscope was inserted through the urethra under direct visualization. There is no evidence of pelvic organ prolapse or other pelvic abnormality at this time. The urethra was normal. The bladder mucosa was visualized in its entirety and found to be without evidence of mass, erythema or abnormality. The right ureteral orifice was identified on the trigone and intubated with a 0.035 Glidewire which was then visualized curled in the renal pelvis. The semirigid ureteroscope was then passed alongside the wire with the help of a 0.025 Glidewire and access to the distal ureter was obtained. The stone was immediately visualized. It was broken into several small fragments using a 270 ?m laser fiber. These fragments were then basket retrieved without difficulty. A 6 [place] 22 cm JJ stent was then passed into the renal pelvis under fluoroscopic visualization with good curling and good positioning within the urinary bladder. The patient's bladder was then emptied and the case was terminated. There were no complications during this procedure. She was awakened and taken to the recovery room in good condition. Grafts/Implants Used: 6x22 JJ stent Complications None Admit VTE Documentation VTE Present on Admission: Yes VTE Mechan Device Prophylaxis: SCD's VTE Pharm Prophylaxis ordered?: No Reason prophylaxis not ordered:: Treatment Not Indicated
--- NOTE | 2021-01-16 16:34 | PCM.DC ---
Discharge Instructions Diet Discharge Diet: No restrictions Activity Discharge Activity: Return to Normal Activity May resume sexual activity in: No Restrictions Dressing / Incision Call your doctor if you observe: Fever of 101 or Higher, Inability to urinate, Inability to have a bowel movement and Uncontrolled pain Follow Up Care Please Follow Up With: Sunni Villaseñor MD When: call office for appt Test Results: Test results from this visit will be discussed in further detail at your follow-up appointment, if applicable. Discharge Plan Admission Admit Date/Time: 01/15/21 08:48 Attending Provider: Sunni Villaseñor Primary Care Provider: Yifan Blum Discharge Orders/Prescriptions Prescriptions: New oxycodone-acetaminophen [oxycodone-acetaminophen] 1 TABLET tablet 2 tab PO Q8H PRN PRN (Reason: Pain) 7 Days Qty: 20 RF: 0 cephalexin [cephalexin] 500 MG capsule 500 mg PO Q12 3 Days Qty: 6 RF: 0 phenazopyridine [Pyridium] 200 MG tablet 200 mg PO TID PRN PRN (Reason: Bladder Spasms) 7 Days Qty: 30 RF: 0 Continued Glucagon Emergency Kit (human) 1 mg recon soln 1 mg IM ONCE Qty: 1 RF: 0 meclizine 25 MG tablet 50 mg PO QHS RF: 0 atenolol 50 MG tablet 50 mg PO QHS RF: 0 rosuvastatin 20 MG tablet 20 mg PO DAILY RF: 0 lansoprazole 30 MG capsule 30 mg PO QHS RF: 0 hydrocodone-acetaminophen 5-325 mg tablet 1 tab PO Q6H PRN PRN (Reason: pain (scale score 6-10)) 3 Days Qty: 14 RF: 0 levetiracetam [Keppra] 250 mg tablet 250 mg PO QHS RF: 0 gabapentin 300 mg Tablet 900 mg PO BID RF: 0 gabapentin 300 mg Tablet 1,200 mg PO QHS RF: 0 Linzess 72 mcg Capsule 72 mcg PO DAILY RF: 0 Humulin R U-500 (Conc) Insulin 500 unit/mL solution See Rx Instructions SC BID Qty: 20 RF: 11 Referrals / Follow Up: Yifan Blum DO [Primary Care Provider] - Disposition Disposition (needs filled in before D/C Order can be placed): Home, Self Care
--- NOTE | 2021-01-16 17:09 | PCM.DC.BLA ---
Discharge Summary Date of Admission: 01/15/21 Date of Discharge: 01/16/21 Summary: The patient is a 50-year-old female admitted with uncontrolled pain secondary to a right ureteral calculus. She was given supportive care with intravenous fluid administration, pain control and antibiotics for a urinary tract infection. She did not pass her stone and was taken to the operating room on 01/16/2021. The stone was successfully broken into small pieces with the laser fiber and removed, and a right ureteral stent was inserted. The patient was taken back to the floor where she tolerated a regular diet and was discharged home in good condition. Physical Exam Const alert, oriented x3 and no apparent distress HEENT normocephalic, head/scalp atraumatic, external ears normal, external nose normal and moist oral mucous membranes Eyes General Eye: normal appearance of both eyes Neck supple General: trachea midline Lymph Lymphatic: no lymphedema noted Chest inspection of chest normal Chest: symmetrical chest wall rise Resp normal respiratory effort, normal air movement and no retractions Cardio regular rate and regular rhythm GI soft to palpation, non-tender and non-distended Inspection: pannus present external exam normal and appearance of the vagina normal Extremity normal to inspection Skin no rashes or lesions noted Neuro oriented x3, CN's II-XII intact bilaterally and moves all extremities Psych mental status grossly normal, thought process normal, cooperative and affect normal Meaningful Use Info Meaningful Use Diagnoses (Choose all that apply): None applicable Discharge Plan Admission Admit Date/Time: 01/15/21 08:48 Attending Provider: Sunni Villaseñor Primary Care Provider: Yifan Blum Discharge Orders/Prescriptions Prescriptions: New oxycodone-acetaminophen [oxycodone-acetaminophen] 1 TABLET tablet 2 tab PO Q8H PRN PRN (Reason: Pain) 7 Days Qty: 20 RF: 0 cephalexin [cephalexin] 500 MG capsule 500 mg PO Q12 3 Days Qty: 6 RF: 0 phenazopyridine [Pyridium] 200 MG tablet 200 mg PO TID PRN PRN (Reason: Bladder Spasms) 7 Days Qty: 30 RF: 0 Continued Glucagon Emergency Kit (human) 1 mg recon soln 1 mg IM ONCE Qty: 1 RF: 0 meclizine 25 MG tablet 50 mg PO QHS RF: 0 atenolol 50 MG tablet 50 mg PO QHS RF: 0 rosuvastatin 20 MG tablet 20 mg PO DAILY RF: 0 lansoprazole 30 MG capsule 30 mg PO QHS RF: 0 hydrocodone-acetaminophen 5-325 mg tablet 1 tab PO Q6H PRN PRN (Reason: pain (scale score 6-10)) 3 Days Qty: 14 RF: 0 levetiracetam [Keppra] 250 mg tablet 250 mg PO QHS RF: 0 gabapentin 300 mg Tablet 900 mg PO BID RF: 0 gabapentin 300 mg Tablet 1,200 mg PO QHS RF: 0 Linzess 72 mcg Capsule 72 mcg PO DAILY RF: 0 Humulin R U-500 (Conc) Insulin 500 unit/mL solution See Rx Instructions SC BID Qty: 20 RF: 11 Referrals / Follow Up: Yifan Blum DO [Primary Care Provider] - Disposition Disposition (needs filled in before D/C Order can be placed): Home, Self Care
--- NOTE | 2021-01-16 18:33 | NURSING ---
Pt has been up to bathroom and voided x2. states some mild burning. urine light pink. pt steady on feet. blood sugar 88. crackers, juice and jello given. present at bedside. pt denies further needs at this time. pt has discharge orders. pt just came to floor.
--- NOTE | 2021-01-16 19:07 | NURSING ---
Pt voiding well. minimal burning. patient tolerated diet. denies nausea or pain. reviewed discharge instructions with patient and spouse. spouse had already picked up prescriptions.
[2021-01-19 13:23] LABS: KEPPRA (LEVETIRACETAM) 3.7 ug/mL (10.0-40.0)
[2021-01-22 15:55] LABS: Source URETER
[2021-01-22 16:02] LABS: Ca Oxalate, Dihydrate 30; Ca Oxalate, Monohydrate 70
== END 2021-01-16 19:13 | disposition home or self-care (01) | DRG 463 ==
LOC: ED 22:01 → MS3 01-15 02:10
PROVIDERS: Anesthesiology; Admitting Provider Urology; Emergency Provider Student in an Organized Health Care Education/Training Program; PCP Student in an Organized Health Care Education/Training Program; Visit Provider Urology
PROC: 0TJ98ZZ Inspection of Ureter, Via Natural or Artificial Opening Endoscopic (ICD-10-PCS; CPT 52352; principal; 2021-01-16 16:20)
DX: N13.6 Pyonephrosis (principal); E11.42 Type 2 diabetes mellitus with diabetic polyneuropathy; E78.00 Pure hypercholesterolemia, unspecified; K21.9 Gastro-esophageal reflux disease without esophagitis; Z79.4 Long term (current) use of insulin; Z79.899 Other long term (current) drug therapy; Z87.442 Personal history of urinary calculi; Z87.891 Personal history of nicotine dependence
CPT/HCPCS: 36415; 74176; 76000; 80048; 80177; 81001; 82360; 82962; 83036; 84703; 85025; 85730; 87077; 87086; 87088; 93005; 97802; 99284; A4216; C2625; J2405

== ENCOUNTER 2021-01-27 05:52 | Day surgery (SDC) | payer MEDICAID, SELFPAY ==
[2021-01-27] VITALS (7 sets, daily range): BP systolic 109–130; BP diastolic 62–89; PULSE 75–82; RESP 16; TEMP 36.1–36.8; O2SAT 91–97; BMI 43.6
[2021-01-27] MEDS: Lactated Ringers 1,000 ML 15 ML IV (06:41)
--- NOTE | 2021-01-27 07:33 | PCM.HP.STD ---
HPI - General HPI Narrative LISA RODRIGUEZ, is a 50 F who presents for cystoscopy and stent removal. Unable to tolerate in the office. FORMERLY [facility] Medical History (Updated 01/27/21 @ 07:[address] Sunni Villaseñor MD) Alcohol use Anxiety Cardiology follow-up encounter Diabetes Diabetes type 2, controlled Former smoker Gastric reflux Gastroparesis GERD (gastroesophageal reflux disease) High cholesterol History of Crohn's disease History of IBS History of irregular heartbeat History of lipoma Injury of head and neck Insulin dependent diabetes mellitus Irregular heart beat Kidney stone Migraine headache Neuropathy Restless legs Shortness of breath on exertion Ureteral calculus, right Urinary tract infection Vertigo Home Medications atenolol 50 mg PO QHS 11/23/16 [History Last Taken 01/14/21] meclizine 50 mg PO QHS 11/23/16 [History Last Taken 01/14/21] rosuvastatin 20 mg PO DAILY 11/23/16 [History Last Taken 01/14/21] lansoprazole 30 mg PO QHS 05/13/17 [History Last Taken 01/14/21] Humulin R U-500 (Conc) Insulin 500 unit/mL subcutaneous soln See Rx Instructions SC BID #20 ml NS 01/07/18 [Rx Last Taken 01/10/19] glucagon (human recombinant) 1 mg solution for injection 1 mg IM ONCE #1 ea 02/12/18 [Rx Last Taken 01/10/19] gabapentin 1,200 mg PO QHS 01/02/21 [History Last Taken 01/14/21] gabapentin 900 mg PO BID 01/02/21 [History Last Taken 01/27/21] levetiracetam [Keppra] 250 mg PO QHS 01/02/21 [History Last Taken 01/05/21] Linzess 72 mcg PO DAILY 01/14/21 [History Last Taken 01/14/21] phenazopyridine [Pyridium] 200 mg PO TID PRN PRN 7 Days #30 tab 01/16/21 [Rx Last Taken Unknown] fluoxetine 10 mg PO DAILY 01/26/21 [History Last Taken Unknown] Allergy/AdvReac Type Severity Reaction Status Date / Time Penicillins Allergy Severe Anaphylaxis Verified 01/27/21 06:29 latex Allergy Swelling Verified 01/26/21 11:18 propoxyphene napsylate Allergy Unknown Verified 01/26/21 11:18 [From Darvocet-N 100] vancomycin Allergy Unknown Verified 01/26/21 11:18 hydrocodone bitartrate AdvReac Itching Verified 01/26/21 11:18 [From Vicodin] oxycodone HCl [From Percocet] AdvReac Itching Verified 01/26/21 11:18 Family History Mother Arthritis Father Diabetes Heart disease High cholesterol Surgical History History of 3 sections History of fasciotomy History of surgery on arm History of tubal ligation pyloric pop surgery S/P foot surgery, left Social History Smoking Status: Former smoker second hand exposure: No alcohol intake: never substance use type: does not use ROS ROS Narrative Afebrile, no chest pain, no shortness of breath, no cardiac events, no abdominal pain, nausea, vomiting, change in stools. No dysuria, hematuria no flank pain except for stent irritation on the right side. All other review of systems is noncontributory. Vital Signs Vital Signs Vital Signs: 01/27/21 06:41 01/27/21 06:43 Temperature 98.2 F Temperature Source Temporal Pulse Rate 75 Respiratory Rate 16 Respiratory Pattern Normal Blood Pressure 109/67 Blood Pressure Mean 81 Blood Pressure Source Monitor Blood Pressure Position Semi-Fowlers Blood Pressure Location Right Arm Pulse Ox 97 Oxygen Delivery Method Room Air Weight Weight: 97.976 kg Body Mass Index (BMI) 43.6 Physical Exam Narrative Alert and oriented x3, no acute distress. Comfortable. Chest is moving symmetrically. No use of accessory musculature for respiration. Able to speak in full sentences. Abdomen soft nontender nondistended. Moving all extremities. Assessment & Plan Assessment/Plan (1) Ureteral calculus, right: PLAN: Cystoscopy and ureteral stent removal. Informed consent obtained. Urine culture negative.
--- NOTE | 2021-01-27 07:36 | PCM.DC ---
Discharge Instructions Diet Discharge Diet: No restrictions Activity Discharge Activity: Return to Normal Activity May resume sexual activity in: No Restrictions Dressing / Incision Call your doctor if you observe: Fever of 101 or Higher, Inability to urinate, Inability to have a bowel movement and Uncontrolled pain Follow Up Care Please Follow Up With: Sunni Villaseñor MD Test Results: Test results from this visit will be discussed in further detail at your follow-up appointment, if applicable. Discharge Plan Admission Attending Provider: Sunni Villaseñor Primary Care Provider: Yifan Blum Discharge Orders/Prescriptions Prescriptions: Continued Glucagon Emergency Kit (human) 1 mg recon soln 1 mg IM ONCE Qty: 1 RF: 0 meclizine 25 MG tablet 50 mg PO QHS RF: 0 atenolol 50 MG tablet 50 mg PO QHS RF: 0 rosuvastatin 20 MG tablet 20 mg PO DAILY RF: 0 lansoprazole 30 MG capsule 30 mg PO QHS RF: 0 levetiracetam [Keppra] 250 mg tablet 250 mg PO QHS RF: 0 gabapentin 300 mg Tablet 900 mg PO BID RF: 0 gabapentin 300 mg Tablet 1,200 mg PO QHS RF: 0 Linzess 72 mcg Capsule 72 mcg PO DAILY RF: 0 phenazopyridine [Pyridium] 200 MG tablet 200 mg PO TID PRN PRN (Reason: Bladder Spasms) 7 Days Qty: 30 RF: 0 fluoxetine 10 mg capsule 10 mg PO DAILY RF: 0 Humulin R U-500 (Conc) Insulin 500 unit/mL solution See Rx Instructions SC BID Qty: 20 RF: 11 Referrals / Follow Up: Yifan Bulm DO [Primary Care Provider] - Disposition Disposition (needs filled in before D/C Order can be placed): Home, Self Care
--- NOTE | 2021-01-27 07:37 | PCM.OPRPT ---
Problems Associated Problem List Diagnoses (1) Ureteral calculus, right: Report of Operation Date of Procedure: 01/27/21 Pre-Operative Diagnosis: ureteral calculus Post-Operative Diagnosis: same, resolved Surgery/Procedure Performed:: cystoscopy and right ureteral stent removal Surgeon: Sunni Villaseñor Type of Anesthesia: MAC Description of Procedure: The patient is a 50-year-old female who was unable to tolerate cystoscopy with stent removal in the office. She now presents for the procedure to be done under anesthesia. Informed consent was obtained. The patient was taken to the operating room and placed on the operating room table. Anesthesia monitored the head, neck, airway, IV access and vital signs throughout the case. Once anesthesia was appropriate ministered the patient was placed into dorsal lithotomy position was prepped and draped in usual sterile fashion. The cystoscope was inserted through the urethra under direct visualization into the urinary bladder. The ureteral stent was visualized grasped and removed without difficulty. The patient's bladder was emptied and the cystoscope was removed. The patient was awakened and taken the recovery room in good condition. There were no complications during this procedure. Grafts/Implants Used: none Complications none Admit VTE Documentation VTE Present on Admission: Yes VTE Mechan Device Prophylaxis: SCD's VTE Pharm Prophylaxis ordered?: No
== END 2021-01-27 08:35 | disposition home or self-care (01) ==
LOC: SDC 05:52 → AC 05:55
PROVIDERS: PCP Student in an Organized Health Care Education/Training Program; Referring Provider Urology; Visit Provider Urology
PROC: (CPT 52310; principal; 2021-01-27 07:20)
DX: N20.1 Calculus of ureter (principal); E11.9 Type 2 diabetes mellitus without complications; K50.90 Crohn's disease, unspecified, without complications; E78.5 Hyperlipidemia, unspecified; K21.9 Gastro-esophageal reflux disease without esophagitis; G25.81 Restless legs syndrome; F41.9 Anxiety disorder, unspecified; E66.3 Overweight; Z68.41 Body mass index [BMI] 40.0-44.9, adult; Z79.4 Long term (current) use of insulin; Z79.899 Other long term (current) drug therapy; Z87.891 Personal history of nicotine dependence
CPT/HCPCS: 00910; 52310; J7120; J2405

== ENCOUNTER 2021-02-25 09:06 | Outpatient (CLI) | payer MEDICAID, SELFPAY ==
--- NOTE | 2021-02-25 09:08 | US_ITS ---
STUDY: RENAL ULTRASOUND - COMPLETE REASON FOR EXAM: Female, 50 years old. Right flank pain - stone and stent removed TECHNIQUE: Ultrasound evaluation of the kidneys was performed with real-time and static roman-scale imaging. COMPARISON: None. FINDINGS: RIGHT KIDNEY: Normal location of the right kidney, which is normal in size. The right kidney measures 13.3 x 6 x 6.2 cm. There is a normal cortex of the right kidney. The renal cortex measures 2.1 cm. There is no right renal mass or cyst. There are no right renal calculi. There is no right hydronephrosis. DISTAL RIGHT URETER: There is non-visualization of the distal right ureter. There is no demonstrated right ureterovesical junction calculus. There is no demonstrated right ureteral jet. LEFT KIDNEY: Normal location of the left kidney, which is normal in size. The left kidney measures 12.6 x 5.1 x 5.8 cm. There is a normal cortex of the left kidney. The renal cortex measures 1.9 cm. There is no left renal mass or cyst. There are no left renal calculi. There is no left hydronephrosis. DISTAL LEFT URETER: There is non-visualization of the distal left ureter. There is no demonstrated left ureterovesical junction calculus. There is no demonstrated left ureteral jet. BLADDER: The distended urinary bladder has a volume of 77 ml. US/Kidney and Bladder IMPRESSION: No evidence of hydronephrosis. Electronically Signed: Joseph Ortiz, at 12:18 EST Tel , Service support ,
== END 2021-02-25 23:59 | disposition short-term general hospital (02) ==
LOC: US 09:07
PROVIDERS: PCP Student in an Organized Health Care Education/Training Program; Referring Provider Urology; Visit Provider Urology
DX: N20.0 Calculus of kidney (principal); R10.9 Unspecified abdominal pain
CPT/HCPCS: 76770

== ENCOUNTER → 2021-07-26 | Outpatient (CLI) | payer MEDICAID, SELFPAY ==
--- NOTE | 2021-07-26 13:06 | CT_ITS ---
STUDY: CT ABDOMEN AND PELVIS WITHOUT CONTRAST REASON FOR EXAM: Female, 51 years old. FLANK PAIN RADIATION DOSAGE (If Supplied By Facility): CTDIvol = ( 21.27 ) mGy, DLP = ( 1068.02 ) mGycm TECHNIQUE: Transaxial images were obtained from the dome of the diaphragm to the symphysis pubis without oral contrast, and without intravenous contrast. Sagittal and coronal images were reconstructed. Individualized dose optimization techniques were used for this CT. COMPARISON: Comparison is made with prior study 01/14/2021. FINDINGS: The visualized lung bases are unremarkable. The visualized portions of the heart are within normal limits. Normal liver. Normal gallbladder and extrahepatic biliary system. Normal spleen. Normal pancreas. Normal bilateral adrenal glands. Normal right kidney. Normal left kidney. Normal visualized stomach. Normal small intestine. There are scattered colonic diverticula consistent with diverticulosis. The appendix is visualized and appears normal. There is scattered atherosclerotic calcification of the abdominal aorta, without a demonstrated aneurysm. Normal inferior vena cava. There is borderline retroperitoneal lymphadenopathy with enlarged nodes no greater than 10mm in the short axis diameter. Normal urinary bladder. There is a 3.2 cm x 2.7 cm cyst in the right ovary. Follicles are seen in the left ovary. Normal abdominal wall. Normal osseous structures. CT/Abdomen/Pelvis without Cont IMPRESSION: 3.2 cm x 2.7 cm right ovarian cyst. Scattered sigmoid diverticula. No obstructive uropathy is seen at this time. Electronically Signed: Emmanuel Ricketts MD at 13:36 EDT ,
== END | disposition home or self-care (01) ==
PROVIDERS: PCP Student in an Organized Health Care Education/Training Program; Referring Provider Urology; Visit Provider Urology
DX: N20.0 Calculus of kidney (principal); R10.9 Unspecified abdominal pain; R11.2 Nausea with vomiting, unspecified
CPT/HCPCS: 74176

== ENCOUNTER 2021-08-06 13:45 | Emergency (ER) | payer MEDICAID, SELFPAY ==
[2021-08-06 13:46] VITALS: BP 150/81; PULSE 91; RESP 16; TEMP 36.7; O2SAT 97; BMI 43.6
--- NOTE | 2021-08-06 14:06 | ED.VIS.BACK ---
HPI History of Present Illness Chief Complaint: Back Informant: patient Narrative Narrative: Nontraumatic upper right-sided thoracic pain for the last 3 to 4 weeks. Occasional back pain. Denies injuries. Denies history of similar. She is on gabapentin 1200 mg at night. History of diabetic neuropathy. She is on Flexeril with no relief. She denies history of gastric ulcers or kidney injury. She saw her urologist 11 days to rule out kidney stones CT scan in system 11 days ago noted no obstructive uropathy. There was noted a right ovarian cyst up to 3.2 cm she denies any pelvic pain. She reports has gone to a chiropractor multiple times with no relief. Last 2 days noted some numbness under her armpit. Denies radicular pain down her arms. Prior similar symptoms: No PFSH PFSH Medical History Alcohol use Anxiety Cardiology follow-up encounter Diabetes Diabetes type 2, controlled Former smoker Gastric reflux Gastroparesis GERD (gastroesophageal reflux disease) High cholesterol History of Crohn's disease History of IBS History of irregular heartbeat History of lipoma Injury of head and neck Insulin dependent diabetes mellitus Irregular heart beat Kidney stone Migraine headache Neuropathy Restless legs Shortness of breath on exertion Ureteral calculus, right Urinary tract infection Vertigo Home Medications atenolol 50 mg tablet 50 mg PO QHS heart 11/23/16 [History Last Taken 01/14/21] meclizine 25 mg tablet 50 mg PO QHS vertigo 11/23/16 [History Last Taken 01/14/21] rosuvastatin 20 mg tablet 20 mg PO DAILY high cholesterol 11/23/16 [History Last Taken 01/14/21] lansoprazole 30 mg capsule,delayed release 30 mg PO QHS GERD 05/13/17 [History Last Taken 01/14/21] Humulin R U-500 (Conc) Insulin 500 unit/mL subcutaneous soln (insulin regular hum U-500 conc) See Rx Instructions subcut BID e11.69 #20 mL 01/07/18 [Rx Last Taken 01/10/19] glucagon (human recombinant) 1 mg solution for injection (Glucagon Emergency Kit) 1 mg IM ONCE #1 ea 02/12/18 [Rx Last Taken 01/10/19] gabapentin 300 mg tablet 1,200 mg PO QHS 01/02/21 [History Last Taken 01/14/21] gabapentin 300 mg tablet 900 mg PO BID 01/02/21 [History Last Taken 01/27/21] levetiracetam 250 mg tablet (Keppra) 250 mg PO QHS headaches 01/02/21 [History Last Taken 01/05/21] linaclotide 72 mcg capsule (Linzess) 72 mcg PO DAILY 01/14/21 [History Last Taken 01/14/21] phenazopyridine 200 mg tablet (Pyridium) 200 mg PO TID PRN PRN Bladder Spasms 7 days #30 tabs 01/16/21 [Rx Last Taken Unknown] fluoxetine 10 mg capsule 10 mg PO DAILY 01/26/21 [History Last Taken Unknown] diazepam 5 mg tablet 5 mg PO Q8 PRN Muscle Spasm #12 tabs 08/06/21 [Rx Last Taken Unknown] ibuprofen 600 mg tablet 600 mg PO 4X/DAY PRN Pain Or Fever #20 tabs 08/06/21 [Rx Last Taken Unknown] Allergy/AdvReac Type Severity Reaction Status Date / Time Penicillins Allergy Severe Anaphylaxis Verified 08/06/21 13:49 latex Allergy Swelling Verified 08/06/21 13:49 propoxyphene napsylate Allergy Unknown Verified 08/06/21 13:49 [From Darvocet-N 100] vancomycin Allergy Unknown Verified 08/06/21 13:49 hydrocodone bitartrate AdvReac Itching Verified 08/06/21 13:49 [From Vicodin] oxycodone HCl [From Percocet] AdvReac Itching Verified 08/06/21 13:49 Family History Mother Arthritis Father Diabetes Heart disease High cholesterol Surgical History History of 3 sections History of fasciotomy History of surgery on arm History of tubal ligation pyloric pop surgery S/P foot surgery, left Social History Smoking Status: Former smoker second hand exposure: No alcohol intake: never substance use type: does not use ROS ROS ED Constitutional Constitutional ED: Denies chills, fever(s) or sweats Eyes Eyes: Denies change in vision ENT ENT ED: Denies dysphagia or sore throat Cardiovascular Cardiovascular: Denies chest pain, leg edema, palpitations or racing heartbeat Respiratory/Chest Respiratory/Chest: Denies cough, dyspnea or dyspnea on exertion Gastrointestinal Gastrointestinal: Denies abdominal pain, diarrhea, nausea or vomiting Genitourinary Genitourinary ED: Denies dysuria, hematuria or urinary frequency Musculoskeletal Musculoskeletal: Reports back pain and neck pain; Denies extremity pain Integumentary Denies rash or wounds Neurologic Neurologic: Denies headache(s), paresthesias or weakness EXAM Physical Exam Const Vital Signs: 08/06/21 13:46 Temperature 98.0 F Temperature Source Temporal Pulse Rate 91 Respiratory Rate 16 Blood Pressure 150/81 H Blood Pressure Mean 104 Pulse Ox 97 Oxygen Delivery Method Room Air Positive well nourished and well developed General Appearance ED: well developed and NAD HEENT Reports moist mucous membranes normocephalic and atraumatic Eyes PERRL, EOMs intact bilaterally and conjunctivae normal General Eye ED: Yes normal appearance of both eyes Neck no lymphadenopathy and supple Neck Narrative: Reproducible pain with Spurling's to the right. General: Negative for tenderness Chest Wall Chest: Negative for tenderness Resp normal respiratory effort and normal air movement Effort and Inspection: symmetric chest movement; Negative for respiratory distress Cardio regular rate, regular rhythm and no murmurs Peripheral Pulses: pulses 2+ throughout GI normal to inspection, nondistended, normoactive bowel sounds and non-tender Palpation: Negative for guarding or rebound tenderness present Back/Spine no CVA tenderness and no thoracic nor lumbar tenderness Extremity normal to inspection General Extremety ED: Negative for edema or tenderness General Extremity: Negative for edema Neuro oriented x3 and no sensory deficits noted Sensorium / Orientation: awake and alert Skin no rashes or lesions noted and no wounds MDM MDM MDM Narrative Medical decision making narrative: Patient history exam concerns for cervical radiculopathy. Given Toradol and Valium, 3 view cervical films obtained and reviewed by myself and read by radiology notes degenerative disc disease at C5-C6. Reevaluation symptoms were improving. Given prescription for NSAIDs, Valium to use as needed she will hold her Flexeril while taking this. She will follow-up with her PCP for outpatient evaluation and further treatment. All questions were answered. Radiography Diagnostic Testing: Clinical Impression(s) from Imaging Studies Cervical Spine X-Ray 08/06/21 14:15 IMPRESSION: Focal degenerative disc disease at C5/C6 with reversal of the normal lordotic curvature. Electronically Signed: Tono Morgan MD at 14:30 EDT , Discharge Plan Triage Chief Complaint: Back ED Provider: Romain Pineda Dx/Rx/DC Orders Clinical Impression: Cervical radiculopathy at C5, Back pain, thoracic Instructions: ED Radiculopathy, Cervical Prescriptions: New ibuprofen 600 mg tablet 600 mg PO 4X/DAY PRN (Reason: Pain Or Fever) Qty: 20 0RF diazepam [diazepam] 5 mg tablet 5 mg PO Q8 PRN (Reason: Muscle Spasm) Qty: 12 0RF No Action Glucagon Emergency Kit (human) 1 mg recon soln 1 mg IM ONCE Qty: 1 0RF meclizine 25 MG tablet 50 mg PO QHS atenolol 50 MG tablet 50 mg PO QHS rosuvastatin 20 MG tablet 20 mg PO DAILY lansoprazole 30 MG capsule 30 mg PO QHS levetiracetam [Keppra] 250 mg tablet 250 mg PO QHS gabapentin 300 mg Tablet 900 mg PO BID gabapentin 300 mg Tablet 1,200 mg PO QHS Linzess 72 mcg Capsule 72 mcg PO DAILY phenazopyridine [Pyridium] 200 MG tablet 200 mg PO TID PRN PRN (Reason: Bladder Spasms) 7 Days Qty: 30 0RF fluoxetine 10 mg capsule 10 mg PO DAILY Humulin R U-500 (Conc) Insulin 500 unit/mL solution See Rx Instructions SC BID Qty: 20 11RF Dose Instruction: take what appears to be 31U in AM and 32U at PM using an insulin syringe SC BID; take what appears to be 30U bid using an insulin syringe SC BID Rx Instructions: basal 2.9 units per hour Primary Care Provider: Yifan Blum Referrals: Yifan Blum DO [Primary Care Provider] - 2 Days Activity Restrictions/Additional Instructions: Cervical x-ray C5-C6 degenerative changes. Take medications as prescribed hold your Flexeril while taking diazepam. Disposition Disposition: Home, Self Care Discharge Date/Time: 08/06/21 15:39
--- NOTE | 2021-08-06 14:15 | RAD_ITS ---
STUDY: X-RAY - CERVICAL SPINE REASON FOR EXAM: Female, 51 years old. radicular pain TECHNIQUE: view(s) of the cervical spine were obtained. COMPARISON: None FINDINGS: Normal anterior atlantoaxial articulation. Normal odontoid process. There is reversal of the normal cervical lordosis. Normal vertebral bodies and endplates. Focal disc space narrowing and osteophyte formation at C5/C6 consistent with degenerative disc disease. Normal visualized intervertebral neuroforamina. The soft tissue structures are unremarkable. RAD/Cerv Spine 2 or 3 Views IMPRESSION: Focal degenerative disc disease at C5/C6 with reversal of the normal lordotic curvature. Electronically Signed: Tono Morgan MD at 14:30 EDT ,
[2021-08-06] MEDS: Ketorolac 30 MG/ML Syringe IM (14:27)
[2021-08-06] MEDS: diazePAM 5 MG Tablet PO (14:27)
== END 2021-08-06 15:39 | disposition home or self-care (01) ==
PROVIDERS: Emergency Provider Emergency Medicine; PCP Student in an Organized Health Care Education/Training Program; Visit Provider Emergency Medicine
DX: M50.10 Cervical disc disorder with radiculopathy, unspecified cervical region (principal); E11.9 Type 2 diabetes mellitus without complications; M54.6 Pain in thoracic spine; E78.00 Pure hypercholesterolemia, unspecified; K21.9 Gastro-esophageal reflux disease without esophagitis; Z79.4 Long term (current) use of insulin; Z79.899 Other long term (current) drug therapy; Z87.891 Personal history of nicotine dependence
CPT/HCPCS: 72040; 96372; 99283

== ENCOUNTER 2021-10-21 07:13 | Emergency (ER) | payer MEDICAID, SELFPAY ==
[2021-10-21 07:14] VITALS: BP 166/90; PULSE 104; RESP 18; TEMP 36.6; O2SAT 98; BMI 44.4
--- NOTE | 2021-10-21 07:30 | EX.ED.DYSGE1 ---
HPI History of Present Illness Chief Complaint: Ear Problem Detail of Chief Complaint: Left ear pain and worse since yesterday Informant: patient Narrative Narrative: Patient presents to the emergency department complaint of left ear pain. Patient states that she has had some discomfort and some itching to the left ear for about a month. She was seen recently by her ear nose and throat physician who removed some wax from the eardrum as well as some debris related to Q-tips possibly. Patient states that yesterday she started having significantly more pain and [facility] and started on ofloxacin eardrops. She denies any fevers. She does describe decreased hearing from the left ear. She denies any trauma to the ear. Prior similar symptoms: Yes [facility] Medical History (Updated 10/21/21 @ 07:[address] Nilesh Caballero DO) Alcohol use Anxiety Cardiology follow-up encounter Diabetes Diabetes type 2, controlled Former smoker Gastric reflux Gastroparesis GERD (gastroesophageal reflux disease) High cholesterol History of Crohn's disease History of IBS History of irregular heartbeat History of lipoma Injury of head and neck Insulin dependent diabetes mellitus Irregular heart beat Kidney stone Migraine headache Neuropathy Restless legs Shortness of breath on exertion Ureteral calculus, right Urinary tract infection Vertigo Home Medications atenolol 50 mg tablet 50 mg PO QHS heart 11/23/16 [History Last Taken 01/14/21] meclizine 25 mg tablet 50 mg PO QHS vertigo 11/23/16 [History Last Taken 01/14/21] rosuvastatin 20 mg tablet 20 mg PO DAILY high cholesterol 11/23/16 [History Last Taken 01/14/21] lansoprazole 30 mg capsule,delayed release 30 mg PO QHS GERD 05/13/17 [History Last Taken 01/14/21] Humulin R U-500 (Conc) Insulin 500 unit/mL subcutaneous soln (insulin regular hum U-500 conc) See Rx Instructions subcut BID e11.69 #20 mL 01/07/18 [Rx Last Taken 01/10/19] glucagon (human recombinant) 1 mg solution for injection (Glucagon Emergency Kit) 1 mg IM ONCE #1 ea 02/12/18 [Rx Last Taken 01/10/19] gabapentin 300 mg tablet 1,200 mg PO QHS 01/02/21 [History Last Taken 01/14/21] gabapentin 300 mg tablet 900 mg PO BID 01/02/21 [History Last Taken 01/27/21] levetiracetam 250 mg tablet (Keppra) 250 mg PO QHS headaches 01/02/21 [History Last Taken 01/05/21] linaclotide 72 mcg capsule (Linzess) 72 mcg PO DAILY 01/14/21 [History Last Taken 01/14/21] phenazopyridine 200 mg tablet (Pyridium) 200 mg PO TID PRN PRN Bladder Spasms 7 days #30 tabs 01/16/21 [Rx Last Taken Unknown] fluoxetine 10 mg capsule 10 mg PO DAILY 01/26/21 [History Last Taken Unknown] diazepam 5 mg tablet 5 mg PO Q8 PRN Muscle Spasm #12 tabs 08/06/21 [Rx Last Taken Unknown] ibuprofen 600 mg tablet 600 mg PO 4X/DAY PRN Pain Or Fever #20 tabs 08/06/21 [Rx Last Taken Unknown] hydrocodone-acetaminophen 5-325mg 5mg-325mg 1 tab PO Q4H PRN PRN Pain 2 days #10 TABLETS 10/21/21 [Rx Last Taken Unknown] sulfamethoxazole 800 mg-trimethoprim 160 mg tablet 1 tab PO BID #20 TABLETS 10/21/21 [Rx Last Taken Unknown] Allergy/AdvReac Type Severity Reaction Status Date / Time Penicillins Allergy Severe Anaphylaxis Verified 10/21/21 07:16 latex Allergy Swelling Verified 10/21/21 07:16 propoxyphene napsylate Allergy Unknown Verified 10/21/21 07:16 [From Darvocet-N 100] vancomycin Allergy Unknown Verified 10/21/21 07:16 hydrocodone bitartrate AdvReac Itching Verified 10/21/21 07:16 [From Vicodin] oxycodone HCl [From Percocet] AdvReac Itching Verified 10/21/21 07:16 Family History Mother Arthritis Father Diabetes Heart disease High cholesterol Surgical History (Updated 09/06/21 @ 21:47 by Princess Jimenez RN) History of 3 sections History of fasciotomy History of surgery on arm History of tubal ligation pyloric pop surgery S/P foot surgery, left Social History Smoking Status: Former smoker second hand exposure: No alcohol intake: never substance use type: does not use ROS ROS ED Review of Systems ROS Unobtainable: other Constitutional Constitutional ED: Reports lethargy; Denies chills, fever(s), sweats or weight loss Eyes Eyes: Denies blurry vision, change in vision or diplopia ENT ENT ED: Reports ear pain; Denies rhinorrhea or sore throat Cardiovascular Cardiovascular: Denies chest pain, orthopnea or racing heartbeat Respiratory/Chest Respiratory/Chest: Denies cough, dyspnea, dyspnea on exertion, orthopnea or sputum Gastrointestinal Gastrointestinal: Denies abdominal pain, diarrhea, nausea or vomiting Genitourinary Genitourinary ED: Denies dysuria, hematuria or urinary frequency Musculoskeletal Musculoskeletal: Denies arthralgias, back pain, myalgias or neck pain Integumentary Denies abscess, Abrasions or rash Neurologic Neurologic: Denies headache(s) or weakness Psychiatric Psychiatric: Denies anxiety, depression or suicidal thoughts Endocrine Endocrinology: Denies polydipsia, polyphagia or polyuria Hematologic/Lymphatic Hematologic/Lymphatic: Denies easy bleeding, easy bruising or lymphadenopathy Allergic/Immunologic Allergic/Immunologic ED: Denies mouth swelling, tongue swelling or urticaria EXAM Physical Exam Const Vital Signs: 10/21/21 07:14 Temperature 97.9 F Temperature Source Temporal Pulse Rate 104 H Respiratory Rate 18 Blood Pressure 166/90 H Blood Pressure Mean 115 Pulse Ox 98 Oxygen Delivery Method Room Air Positive well nourished and well developed General Appearance ED: well developed and NAD HEENT Reports moist mucous membranes HEENT Narrative: Patient was mild tenderness with traction on the left pinna. She does have edema of the left ear canal and I have a difficult time visualizing the eardrum. There is no drainage within the ear canal. No significant tenderness over the mastoid. No cellulitic changes noted. normocephalic and atraumatic; Negative for trauma or tenderness Eyes PERRL and EOMs intact bilaterally General Eye ED: Negative for pale conjunctiva or scleral icterus Neck no lymphadenopathy, supple and no JVD General: Negative for tenderness Chest Wall inspection of chest normal and palpation of chest normal Chest: Negative for tenderness Resp normal respiratory effort and clear to auscultation bilaterally Effort and Inspection: Negative for respiratory distress or pain with movement Auscultation: Negative for rhonchi, wheezes or diminished lung sounds Cardio regular rate, regular rhythm, S1 normal heart sound, S2 normal heart sound and no murmurs Peripheral Pulses: pulses 2+ throughout GI normal to inspection, nondistended, normoactive bowel sounds, soft to palpation, non-tender, non-distended and no masses Back/Spine no CVA tenderness and no thoracic nor lumbar tenderness Extremity normal to inspection General Extremety ED: Negative for edema General Extremity: Negative for edema Neuro oriented x3, CN's II-XII intact bilaterally, no sensory deficits noted and gait normal Sensorium / Orientation: awake, alert, oriented to person, oriented to place and oriented to time Motor Exam: strength 5/5 throughout and strength abnormal Psych mental status grossly normal Skin no rashes or lesions noted and no wounds MDM MDM MDM Narrative Medical decision making narrative: Case was discussed with ear nose and throat physician Dr. Garret Callejas who was on-call for the group and is the patient's ear nose and throat physician. I was asked to place a wick in the patient's ear and started her on Bactrim and provide pain control and they can see her in the office in 2 days. Patient comfortable with plan. She was given 1 [place] in the emergency department and 1 dose of Bactrim. Patient states that she can tolerate [place] and Percocet it just causes some mild itching. Patient had an ear wick placed in the left ear canal. Discharge Plan Triage Chief Complaint: Ear Problem ED Provider: Nilesh Caballero Dx/Rx/DC Orders Clinical Impression: Left ear pain, Left otitis externa Instructions: ED External Ear Infection (Adult) Prescriptions: New hydrocodone-acetaminophen [hydrocodone-acetaminophen] 5-325 mg tablet 1 tab PO Q4H PRN PRN (Reason: Pain) 2 Days Qty: 10 0RF sulfamethoxazole-trimethoprim [sulfamethoxazole-trimethoprim] 800-160 mg tablet 1 tab PO BID Qty: 20 0RF No Action Glucagon Emergency Kit (human) 1 mg recon soln 1 mg IM ONCE Qty: 1 0RF meclizine 25 MG tablet 50 mg PO QHS atenolol 50 MG tablet 50 mg PO QHS rosuvastatin 20 MG tablet 20 mg PO DAILY lansoprazole 30 MG capsule 30 mg PO QHS levetiracetam [Keppra] 250 mg tablet 250 mg PO QHS gabapentin 300 mg Tablet 900 mg PO BID gabapentin 300 mg Tablet 1,200 mg PO QHS Linzess 72 mcg Capsule 72 mcg PO DAILY phenazopyridine [Pyridium] 200 MG tablet 200 mg PO TID PRN PRN (Reason: Bladder Spasms) 7 Days Qty: 30 0RF fluoxetine 10 mg capsule 10 mg PO DAILY ibuprofen 600 mg tablet 600 mg PO 4X/DAY PRN (Reason: Pain Or Fever) Qty: 20 0RF diazepam [diazepam] 5 mg tablet 5 mg PO Q8 PRN (Reason: Muscle Spasm) Qty: 12 0RF Humulin R U-500 (Conc) Insulin 500 unit/mL solution See Rx Instructions SC BID Qty: 20 11RF Dose Instruction: take what appears to be 31U in AM and 32U at PM using an insulin syringe SC BID; take what appears to be 30U bid using an insulin syringe SC BID Rx Instructions: basal 2.9 units per hour Primary Care Provider: Yifan Blum Referrals: Yifan Blum DO [Primary Care Provider] - Garret Callejas MD [Med Staff - Active Staff] - 2 Days Disposition Disposition: Home, Self Care
[2021-10-21] MEDS: HYDROcodone Bitartrate/Apap 5/325 Tablet PO (07:41)
[2021-10-21] MEDS: Smz/Tmp Ds Tablet 1 TABLET PO (07:44)
== END 2021-10-21 07:50 | disposition home or self-care (01) ==
LOC: ED 07:41
PROVIDERS: Emergency Provider Emergency Medicine; PCP Student in an Organized Health Care Education/Training Program; Visit Provider Emergency Medicine
DX: H60.92 Unspecified otitis externa, left ear (principal); E11.40 Type 2 diabetes mellitus with diabetic neuropathy, unspecified; Z79.4 Long term (current) use of insulin; H91.92 Unspecified hearing loss, left ear; E78.00 Pure hypercholesterolemia, unspecified; K21.9 Gastro-esophageal reflux disease without esophagitis; F41.9 Anxiety disorder, unspecified; Z79.899 Other long term (current) drug therapy; Z87.891 Personal history of nicotine dependence
CPT/HCPCS: 99283

== ENCOUNTER 2021-10-30 12:42 | Emergency (ER) | payer MEDICAID, SELFPAY ==
[2021-10-30 12:44] VITALS: BP 115/56; PULSE 86; RESP 17; TEMP 36.2; O2SAT 96; BMI 63.9
--- NOTE | 2021-10-30 14:27 | EDS_ITS ---
HPI History of Present Illness Chief Complaint: Allergic Reaction Informant: patient Onset/Context/Timing Onset: Days Context: Gradual Onset Timing: Continuous Current Severity: Mild Maximum Severity: Mild Narrative Narrative: 51-year-old female history of anxiety, diabetes, gastroparesis and hypertension. States that she was diagnosed with otitis media and externa a week ago on Saturday. Was placed on eardrops here at [facility] twice daily. She is allergy to penicillins that he could use those antibiotics. She saw ear nose and throat doctor Dr. Garret Callejas midweek he continue the Bactrim and wrote the prescription for longer and placed her on neomycin eardrops instead of the 1 that she was previously on. Her ear appears to be improving. She was concerned because she thinks she is developing allergic reaction. She is never anything like this before. Prior similar symptoms: No Recent Illness/Hospitalization: No PFSH PFSH Medical History Alcohol use Anxiety Cardiology follow-up encounter Diabetes Diabetes type 2, controlled Former smoker Gastric reflux Gastroparesis GERD (gastroesophageal reflux disease) High cholesterol History of Crohn's disease History of IBS History of irregular heartbeat History of lipoma Injury of head and neck Insulin dependent diabetes mellitus Irregular heart beat Kidney stone Migraine headache Neuropathy Restless legs Shortness of breath on exertion Ureteral calculus, right Urinary tract infection Vertigo Home Medications atenolol 50 mg tablet 50 mg PO QHS heart 11/23/16 [History Last Taken 01/14/21] meclizine 25 mg tablet 50 mg PO QHS vertigo 11/23/16 [History Last Taken 01/14/21] rosuvastatin 20 mg tablet 20 mg PO DAILY high cholesterol 11/23/16 [History Last Taken 01/14/21] lansoprazole 30 mg capsule,delayed release 30 mg PO QHS GERD 05/13/17 [History Last Taken 01/14/21] Humulin R U-500 (Conc) Insulin 500 unit/mL subcutaneous soln (insulin regular hum U-500 conc) See Rx Instructions subcut BID e11.69 #20 mL 01/07/18 [Rx Last Taken 01/10/19] glucagon (human recombinant) 1 mg solution for injection (Glucagon Emergency Kit) 1 mg IM ONCE #1 ea 02/12/18 [Rx Last Taken 01/10/19] gabapentin 300 mg tablet 1,200 mg PO QHS 01/02/21 [History Last Taken 01/14/21] gabapentin 300 mg tablet 900 mg PO BID 01/02/21 [History Last Taken 01/27/21] levetiracetam 250 mg tablet (Keppra) 250 mg PO QHS headaches 01/02/21 [History Last Taken 01/05/21] linaclotide 72 mcg capsule (Linzess) 72 mcg PO DAILY 01/14/21 [History Last Taken 01/14/21] phenazopyridine 200 mg tablet (Pyridium) 200 mg PO TID PRN PRN Bladder Spasms 7 days #30 tabs 01/16/21 [Rx Last Taken Unknown] fluoxetine 10 mg capsule 10 mg PO DAILY 01/26/21 [History Last Taken Unknown] diazepam 5 mg tablet 5 mg PO Q8 PRN Muscle Spasm #12 tabs 08/06/21 [Rx Last Taken Unknown] ibuprofen 600 mg tablet 600 mg PO 4X/DAY PRN Pain Or Fever #20 tabs 08/06/21 [Rx Last Taken Unknown] hydrocodone-acetaminophen 5-325mg 5mg-325mg 1 tab PO Q4H PRN PRN Pain 2 days #10 TABLETS 10/21/21 [Rx Last Taken Unknown] sulfamethoxazole 800 mg-trimethoprim 160 mg tablet 1 tab PO BID #20 TABLETS 0 10/21/21 [Rx Last Taken Unknown] Allergy/AdvReac Type Severity Reaction Status Date / Time Penicillins Allergy Severe Anaphylaxis Verified 10/30/21 12:46 latex Allergy Swelling Verified 10/30/21 12:46 propoxyphene napsylate Allergy Unknown Verified 10/30/21 12:46 [From Darvocet-N 100] vancomycin Allergy Unknown Verified 10/30/21 12:46 hydrocodone bitartrate AdvReac Itching Verified 10/30/21 12:46 [From Vicodin] oxycodone HCl [From Percocet] AdvReac Itching Verified 10/30/21 12:46 Family History Mother Arthritis Father Diabetes Heart disease High cholesterol Surgical History History of 3 sections History of fasciotomy History of surgery on arm History of tubal ligation pyloric pop surgery S/P foot surgery, left Social History Smoking Status: Former smoker second hand exposure: No alcohol intake: never substance use type: does not use ROS ROS ED ROS Narrative Recent earache. Review of Systems ROS Unobtainable: Denies due to encephalopathy Constitutional Constitutional ED: Denies chills or fever(s) Eyes Eyes: Denies blurry vision ENT ENT ED: Reports ear pain Cardiovascular Cardiovascular: Denies chest pain Respiratory/Chest Respiratory/Chest: Denies cough or dyspnea Gastrointestinal Gastrointestinal: Denies abdominal pain Genitourinary Genitourinary ED: Denies dysuria Musculoskeletal Musculoskeletal: Denies arthralgias Integumentary Denies abscess Neurologic Neurologic: Denies headache(s) Psychiatric Psychiatric: Denies anxiety Endocrine Endocrinology: Denies cold intolerance Hematologic/Lymphatic Hematologic/Lymphatic: Reports none Allergic/Immunologic Allergic/Immunologic ED: Denies mouth swelling or tongue swelling EXAM Physical Exam Narrative Exam Narrative: 51-year-old female no acute distress. Vital signs stable afebrile. HEENT exam her face has no abnormalities. I do not appreciate any swelling. There is no facial droop. She can open and close both eyes. Extraocular motions are intact. There is no facial palsy. Right ear and canal is unremarkable there is wax in the canal. Left canal is improving is wide open currently. The eardrum is still dull minimally red. There is no perforation or blood. There is no cervical lymphadenopathy. There is no signs of malignancy otitis externa. Face is nontender. Lips and tongue are unremarkable. Posterior pharynx is normal. There is no swelling of the lips or tongue. There is no rash. Neck nontender. Lungs are clear. Heart regular rhythm. Abdomen soft nontender. Obese. Moving all 4 extremities. Normal motor strength. Normal sensation. Normal range of motion. Neurologic exam normal. Const Vital Signs: 10/30/21 12:44 Temperature 97.1 F L Temperature Source Temporal Pulse Rate 86 Respiratory Rate 17 Blood Pressure 115/56 L Blood Pressure Mean 75 Pulse Ox 96 Oxygen Delivery Method Room Air Positive well nourished, well developed and obese; Negative for cachectic, contractures or unkempt General Appearance ED: well developed and NAD; Negative for unkempt, cachectic, contractures, cyanotic or diaphoretic Nutritional Appearance: obese; Negative for cachectic HEENT Reports moist mucous membranes; Denies dry mucous membranes HEENT Narrative: Right canal normal wax. Left canal wide open. Otitis externa is significantly improving. Mild otitis media no perforation. The external ear appears normal. Negative for trauma or tenderness Mouth ED: No dry mucous membranes Mouth: No dry mucous membranes Eyes PERRL and EOMs intact bilaterally General Eye ED: Negative for pale conjunctiva or scleral icterus Neck no lymphadenopathy, supple and no JVD General: Negative for tenderness Lymph Lymphatic: Negative for other Chest Wall inspection of chest normal and palpation of chest normal Resp normal respiratory effort and clear to auscultation bilaterally Effort and Inspection: Negative for retractions Auscultation: Negative for rales, rhonchi or wheezes Cardio regular rate, regular rhythm, S1 normal heart sound, S2 normal heart sound and no murmurs Palpation: Negative for palpable S3 Rate: Negative for bradycardia GI normal to inspection, nondistended, normoactive bowel sounds, non-tender, non- distended and no masses Inspection: Negative for abdominal distention Auscultation: normoactive bowel sounds Palpation: soft; Negative for tender Back/Spine no CVA tenderness General Back: Negative for CVA tenderness Cervical Spine: Negative for cervical spine tenderness Thoracic Spine / Upper Back: Negative for thoracic spinal tenderness Lumbar Spine / Lower Back: Negative for lumbar spinal tenderness Extremity normal to inspection General Extremety ED: Negative for edema or tenderness General Extremity: Negative for edema Neuro oriented x3 Sensorium / Orientation: alert; Negative for orientation impaired, lethargic or stuporous Psych mental status grossly normal Appearance: Negative for unkempt Attitude: No agitated Mood & Affect: Negative for depressed, anxious or tearful Skin no rashes or lesions noted and no wounds Lesions: No lesion noted Rashes: No rashes noted Trauma: Negative for abrasion Wounds: Negative for wounds noted MDM MDM MDM Narrative Medical decision making narrative: 51-year-old diabetic being treated for otitis externa/media. On Bactrim and neomycin eardrops. The otitis on the left ear appears to be significantly improving. I see no signs of allergic reaction. There is no rash. There is no lip or tongue swelling. She has no trouble breathing. There is no wheezing. I explained to her I would not stop or change the antibiotic drops or the oral antibiotic. This seems to be improving. Follow-up if worse. She and I discussed steroids which is caused her problems with her blood sugars in the past. I do not think that is necessary. She is not on any other blood pressure medications other than atenolol. She is on no TAISHA inhibitor. Discharge Plan Triage Chief Complaint: Allergic Reaction ED Provider: Leonardo Tran Dx/Rx/DC Orders Clinical Impression: Adult general medical exam, Diabetes, History of otitis externa Prescriptions: No Action Glucagon Emergency Kit (human) 1 mg recon soln 1 mg IM ONCE Qty: 1 0RF meclizine 25 MG tablet 50 mg PO QHS atenolol 50 MG tablet 50 mg PO QHS rosuvastatin 20 MG tablet 20 mg PO DAILY lansoprazole 30 MG capsule 30 mg PO QHS levetiracetam [Keppra] 250 mg tablet 250 mg PO QHS gabapentin 300 mg Tablet 900 mg PO BID gabapentin 300 mg Tablet 1,200 mg PO QHS Linzess 72 mcg Capsule 72 mcg PO DAILY phenazopyridine [Pyridium] 200 MG tablet 200 mg PO TID PRN PRN (Reason: Bladder Spasms) 7 Days Qty: 30 0RF fluoxetine 10 mg capsule 10 mg PO DAILY ibuprofen 600 mg tablet 600 mg PO 4X/DAY PRN (Reason: Pain Or Fever) Qty: 20 0RF diazepam [diazepam] 5 mg tablet 5 mg PO Q8 PRN (Reason: Muscle Spasm) Qty: 12 0RF hydrocodone-acetaminophen [hydrocodone-acetaminophen] 5-325 mg tablet 1 tab PO Q4H PRN PRN (Reason: Pain) 2 Days Qty: 10 0RF sulfamethoxazole-trimethoprim [sulfamethoxazole-trimethoprim] 800-160 mg tablet 1 tab PO BID Qty: 20 0RF Humulin R U-500 (Conc) Insulin 500 unit/mL solution See Rx Instructions SC BID Qty: 20 11RF Dose Instruction: take what appears to be 31U in AM and 32U at PM using an insulin syringe SC BID; take what appears to be 30U bid using an insulin syringe SC BID Rx Instructions: basal 2.9 units per hour Primary Care Provider: Yifan Blum Referrals: Yifan Blum, [Primary Care Provider] - As Needed Garret Callejas MD [Med Staff - Active Staff] - Keep Manolo appointment Activity Restrictions/Additional Instructions: At this [facility] any signs of allergic reaction. Continue both your eardrops and the oral antibiotic. Follow-up with Dr. Garret Callejas as needed. Return if worse. Disposition Disposition: Home, Self Care
== END 2021-10-30 14:45 | disposition home or self-care (01) ==
PROVIDERS: Emergency Provider Emergency Medicine; PCP Student in an Organized Health Care Education/Training Program; Visit Provider Emergency Medicine
DX: Z00.00 Encounter for general adult medical examination without abnormal findings (principal); E11.43 Type 2 diabetes mellitus with diabetic autonomic (poly)neuropathy; Z79.4 Long term (current) use of insulin; T78.40XA Allergy, unspecified, initial encounter; F41.9 Anxiety disorder, unspecified; H66.92 Otitis media, unspecified, left ear; I10 Essential (primary) hypertension; E78.00 Pure hypercholesterolemia, unspecified; K31.84 Gastroparesis; E66.9 Obesity, unspecified; Z79.899 Other long term (current) drug therapy; Z87.891 Personal history of nicotine dependence
CPT/HCPCS: 99282

== ENCOUNTER → 2021-12-04 | Outpatient (CLI) | payer MEDICAID, SELFPAY ==
--- NOTE | 2021-12-04 11:02 | MRI_ITS ---
STUDY: MRI LEFT MIDFOOT REASON FOR EXAM: Female, 51 years old. TENDON TEAR STRESS FX TECHNIQUE: Standardized fat and water weighted pulse sequences were obtained in all 3 orthogonal planes. COMPARISON: None. FINDINGS: Mild osteoarthritis first MTP joint. There is a small joint effusion at this site. There are small joint effusions at the second, third, and fourth metatarsophalangeal joints. Mild subcutaneous edema is seen in the dorsal metatarsal region. There is no evidence of marrow edema to suggest stress fracture. Normal talonavicular articulation. Normal calcaneocuboid articulation. Normal navicular-cuneiform articulations. Normal intercuneiform articulations. Normal first tarsometatarsal articulation. Normal Lisfranc ligament. Normal second and third tarsometatarsal articulations. Normal cuboid fourth and cuboid fifth tarsometatarsal articulation. Normal first through fifth metatarsi. Normal tibialis anterior tendon. Normal extensor hallucis longus tendon. Normal extensor digitorum longus tendons. Normal peroneus longus tendon and distal insertion. Normal peroneus brevis tendon and distal insertion. Normal intrinsic muscles of the mid and forefoot region. Normal extensor digitorum brevis muscle. Normal subcutis adipose space. MRI/Lower Ext/No Jt/w/o IMPRESSION: No evidence of stress fracture. Mild osteoarthritis first MTP joint. Small joint effusions first through fourth MTP joints. Electronically Signed: Tuan Ohara MD, NAZ at 13:07 EDT ,
== END | disposition home or self-care (01) ==
LOC: MRI 10:51
PROVIDERS: PCP Student in an Organized Health Care Education/Training Program; Referring Provider Podiatrist; Visit Provider Podiatrist
DX: S96.112A Strain of muscle and tendon of long extensor muscle of toe at ankle and foot level, left foot, initial encounter (principal)
CPT/HCPCS: 73718

== ENCOUNTER → 2022-03-06 | Outpatient (CLI) | payer MEDICAID, SELFPAY ==
[2022-03-06 16:58] LABS: Absolute Lymphocyte Count 2.96 X10^3/uL (0.83-4.51); Absolute Neutrophil Count 5.9 X10^3/uL (2.0-7.7); Basophil# 0.08 X10^3/uL; Basophil% 0.8 % (0-1); Eosinophil# 0.18 X10^3/uL; Eosinophils% 1.8 % (0-5); Hematocrit 44.7 % (37-47); Hemoglobin 14.5 g/dL (12.0-15.0); Lymphocyte # 2.96 X10^3/ul (0.83-4.51); Lymphocyte % 29.6 % (19-41); Mean Corp Hgb Conc 32.4 g/dL (32-36); Mean Corpuscular Hgb 29.3 pg (27.0-32.0); Mean Corpuscular Volume 90.3 fL (81-99); Mean Platelet Vol. 8.9 fl (6.2-12.0); Monocyte# 0.89 X10^3/uL; Monocyte% 8.9 % (0-10); NRBC Flagged by Analyzer 0 % (0-5); Neutrophil # 5.85 X10^3/uL (2.7-7.7); Neutrophil % 58.6 % (47-70); Platelet Count 324 K/mm3 (150-450); RBC Distribution Width CV 12.9 % (11.6-14.6); RBC Distribution Width SD 42.4 fl (35.1-43.9); Red Blood Count 4.95 M/mm3 (4.2-5.4)
[2022-03-06 17:07] LABS: Erythrocyte Sedimentation Rate 6 mm/hr (0-30)
[2022-03-06 17:12] LABS: ALB/GLOB Ratio 0.9 RATIO (0.9-2.4); AST(SGOT) 14 U/L (15-37); Alanine Aminotransfer ALT/SGPT 21 U/L (13-56); Albumin, Serum 3.5 g/dL (3.2-5.0); Alkaline Phosphatase 67 U/L (45-117); Anion Gap 5 (5-15); BUN 7 mg/dL (7-18); BUN/Creat Ratio 8.2 RATIO (10-20); CRP 3.12 mg/L (0.0-3.0); Calcium,Total 9.4 mg/dL (8.5-10.1); Chloride 106 mmol/L (98-107); Creatinine, Serum 0.86 mg/dL (0.55-1.02); EST Glomerular Filtration Rate 74 mL/min (>60); Est Glom Filt Rate - Afr Amer 90 mL/min (>60); Globulin 3.7 g/dL (2.2-4.2); Glucose 85 mg/dL (74-106); Potassium 3.9 mmol/L (3.5-5.1); Protein, Total 7.2 g/dL (6.4-8.2); Rheumatoid Factor < 10.0 IU/mL (<15); Sodium Level 142 mmol/L (136-145)
[2022-03-06 17:15] LABS: Vitamin D,25 Hydroxy 29.8 ng/mL
[2022-03-08 17:32] LABS: CCP IgG Antibodies 0 units (0-19)
[2022-03-08 17:40] LABS: ANTINUCLEAR ANTIBODIES DIRECT Negative (Negative)
== END | disposition home or self-care (01) ==
LOC: LAB 16:33
PROVIDERS: PCP Student in an Organized Health Care Education/Training Program; Visit Provider Podiatrist
DX: M19.90 Unspecified osteoarthritis, unspecified site (principal)
CPT/HCPCS: 36415; 80053; 82306; 84550; 85025; 85652; 86038; 86140; 86200; 86431

== ENCOUNTER 2023-03-10 20:05 | Emergency (ER) | payer MEDICAID, SELFPAY ==
[2023-03-10 20:06] VITALS: BP 141/72; PULSE 96; RESP 18; TEMP 36.7; O2SAT 99; BMI 49.7
--- NOTE | 2023-03-10 20:23 | EDS_ITS ---
HPI History of Present Illness Chief Complaint: Nausea/Vomiting Informant: patient Narrative Narrative: Patient presents with nausea vomiting and some low sugars. Patient states that she started to get nauseated about 3:00. Just in the last couple hours she vomited and that was after she ate. She states this happens with her gastroparesis. But normally with gastroparesis she gets better after she vomits. This time she is still nauseated. She tried Zofran or Phenergan but she vomited up immediately and it did not stay down. She is not really having abdominal pain. She has a insulin pump in which she has taken out. But her sugars really have not been above 100 today. She has been very well- controlled. [facility] Medical History Alcohol use Anxiety Cardiology follow-up encounter Diabetes Diabetes type 2, controlled Former smoker Gastric reflux Gastroparesis GERD (gastroesophageal reflux disease) High cholesterol History of Crohn's disease History of IBS History of irregular heartbeat History of lipoma Injury of head and neck Insulin dependent diabetes mellitus Irregular heart beat Kidney stone Migraine headache Neuropathy Restless legs Shortness of breath on exertion Ureteral calculus, right Urinary tract infection Vertigo Home Medications atenolol 50 mg tablet 50 mg PO QHS heart 11/23/16 [History Last Taken 01/14/21] meclizine 25 mg tablet 50 mg PO QHS vertigo 11/23/16 [History Last Taken 01/14/21] rosuvastatin 20 mg tablet 20 mg PO DAILY high cholesterol 11/23/16 [History Last Taken 01/14/21] lansoprazole 30 mg capsule,delayed release 30 mg PO QHS GERD 05/13/17 [History Last Taken 01/14/21] Humulin R U-500 (Conc) Insulin 500 unit/mL subcutaneous soln (insulin regular hum U-500 conc) See Rx Instructions subcut BID e11.69 #20 mL 01/07/18 [Rx Last Taken 01/10/19] glucagon (human recombinant) 1 mg solution for injection (Glucagon Emergency Kit ) 1 mg IM ONCE #1 ea 02/12/18 [Rx Last Taken 01/10/19] gabapentin 300 mg tablet 1,200 mg PO QHS 01/02/21 [History Last Taken 01/14/21] gabapentin 300 mg tablet 900 mg PO BID 01/02/21 [History Last Taken 01/27/21] levetiracetam 250 mg tablet (Keppra) 250 mg PO QHS headaches 01/02/21 [History Last Taken 01/05/21] linaclotide 72 mcg capsule (Linzess) 72 mcg PO DAILY 01/14/21 [History Last Taken 01/14/21] phenazopyridine 200 mg tablet (Pyridium) 200 mg PO TID PRN PRN Bladder Spasms 7 days #30 tabs 01/16/21 [Rx Last Taken Unknown] fluoxetine 10 mg capsule 10 mg PO DAILY 01/26/21 [History Last Taken Unknown] diazepam 5 mg tablet 5 mg PO Q8 PRN Muscle Spasm #12 tabs 08/06/21 [Rx Last Taken Unknown] ibuprofen 600 mg tablet 600 mg PO 4X/DAY PRN Pain Or Fever #20 tabs 08/06/21 [Rx Last Taken Unknown] hydrocodone-acetaminophen 5-325mg 5mg-325mg 1 tab PO Q4H PRN PRN Pain 2 days #10 TABLETS 10/21/21 [Rx Last Taken Unknown] sulfamethoxazole 800 mg-trimethoprim 160 mg tablet 1 tab PO BID #20 TABLETS 10/21/21 [Rx Last Taken Unknown] Allergy/AdvReac Type Severity Reaction Status Date / Time Penicillins Allergy Severe Anaphylaxis Verified 03/10/23 20:06 latex Allergy Swelling Verified 03/10/23 20:06 propoxyphene napsylate Allergy Unknown Verified 03/10/23 20:06 [From Darvocet-N 100] vancomycin Allergy Unknown Verified 03/10/23 20:06 hydrocodone bitartrate AdvReac Itching Verified 03/10/23 20:06 [From Vicodin] oxycodone HCl [From Percocet] AdvReac Itching Verified 03/10/23 20:06 Family History Mother Arthritis Father Diabetes Heart disease High cholesterol Surgical History History of 3 sections History of fasciotomy History of surgery on arm History of tubal ligation pyloric pop surgery S/P foot surgery, left Social History Smoking Status: Former smoker second hand exposure: No alcohol intake: never substance use type: does not use ROS ROS ED ROS Narrative A complete review of systems was performed and is negative except as documented in the history of present illness. Some specific details below. Constitutional: No recent fevers or chills. She felt fine before the nausea started at 3. EYE: No visual complaints or pain. ENT: No difficulty swallowing. No swelling. No pain. CV: No chest pain or palpitations. Respiratory: No dyspnea. No hemoptysis. No difficulty taking breaths. GI: Please see history of present illness. : No frequency dysuria or hematuria. Musculoskeletal: No recent trauma. No pains. Skin: No rash. Nondiaphoretic. Neuro: No weakness or numbness. Endocrine: No polyuria or polydipsia. EXAM Physical Exam Narrative Exam Narrative: CONSTITUTIONAL: Patient is nontoxic in appearance. The patient looks comfortable. She is holding a currently empty emesis bag. HEENT: No notable trauma. Mucous membranes moist. No sinus tenderness. No indication of pain with swallowing. EYES: No conjunctival injection. No proptosis. CARDIOVASCULAR: Regular rate. Regular rhythm. No notable murmur. No JVD. RESPIRATORY: No respiratory distress. Breathing is unlabored. No wheezes. No rhonchi. No rales. No pain with a deep breath. GASTROINTESTINAL: Not distended. Bowel sounds are normal. No tenderness. No guarding. No rebound. No palpable mass. No bruit. Overall benign abdomen. GENITOURINARY: No tenderness over the bladder. No CVA tenderness. MUSCULOSKELETAL: Atraumatic. No tenderness NEUROLOGICAL: Patient is alert and appropriate. No focal deficit noted. SKIN: No noted rashes. No diaphoresis. PSYCHIATRIC: Patient is calm. Mood is appropriate. Const Vital Signs: 03/10/23 20:06 03/10/23 20:46 Temperature 98.1 F Temperature Source Temporal Pulse Rate 96 Respiratory Rate 18 Respiratory Effort Normal Non-Labored Respiratory Pattern Normal Blood Pressure 141/72 H Blood Pressure Mean 95 Pulse Ox 99 Oxygen Delivery Method Room Air MDM MDM MDM Narrative Medical decision making narrative: Patient's CBC shows nonspecific elevation of her white count. Hemoglobin was a little bit up. This might be due to a little bit hemoconcentration. Patient's electrolytes showed normal anion gap and bicarb. Glucose was 68. It had been 65 via fingerstick. We did give her 12-1/2 g of glucose. She should be now well past her peak of insulin since she pulled out her insulin pump. Patient's liver function test are normal. Patient's lipase is normal. We are awaiting viral studies and urine. Patient states she has no urinary symptoms at all. She would prefer not to wait for this. She would like to go home and sleep because she feels markedly better now. Likewise, I doubt she has positive viral studies. But even if she does I do not think she needs acute treatment. She has Zofran and Phenergan at home for the nausea. She feels that this was likely her gastroparesis it was just worse than a normal episode. We did discuss reasons to return. Lab Data Attestation: I reviewed the patient's lab results. Labs: Laboratory Results - last 24 hr 03/10/23 03/10/23 20:23 20:25 WBC 11.5 H RBC 5.48 H Hgb 15.7 H Hct 48.4 H MCV 88.3 MCH 28.6 MCHC 32.4 RDW Std Deviation 41.5 RDW Coeff of Adithya 12.8 Plt Count 279 MPV 8.9 Immature Gran % (Auto) 0.300 Neut % (Auto) 79.1 H Lymph % (Auto) 9.6 L Walsh % (Auto) 9.0 Eos % (Auto) 1.5 Baso % (Auto) 0.5 Absolute Neuts (auto) 9.1 H Absolute Lymphs (auto) 1.11 Nucleated RBC % 0 Sodium 141 Potassium 3.6 Chloride 112 H Carbon Dioxide 26.0 Anion Gap 3 L BUN 9 Creatinine 0.83 Estim Creat Clear Calc 91.13 Est GFR (MDRD) Af Amer 93 Est GFR (MDRD) Non-Af 76 BUN/Creatinine Ratio 10.8 Glucose 68 L Calcium 9.5 Total Bilirubin 0.50 AST 13 L ALT 20 Alkaline Phosphatase 74 Total Protein 7.6 Albumin 3.7 Globulin 3.9 Albumin/Globulin Ratio 0.9 Lipase 36 POC Glucose 65 L Discharge Plan Triage Chief Complaint: Nausea/Vomiting Other Complaint: Hypoglycemia ED Provider: Vick Koehler Dx/Rx/DC Orders Clinical Impression: History of diabetes mellitus, type II, Hypoglycemia, Nausea & vomiting Instructions: ED Vomiting (Adult) Prescriptions: No Action Glucagon Emergency Kit (human) 1 mg recon soln 1 mg IM ONCE Qty: 1 0RF meclizine 25 MG tablet 50 mg PO QHS atenolol 50 MG tablet 50 mg PO QHS rosuvastatin 20 MG tablet 20 mg PO DAILY lansoprazole 30 MG capsule 30 mg PO QHS levetiracetam [Keppra] 250 mg tablet 250 mg PO QHS gabapentin 300 mg Tablet 900 mg PO BID gabapentin 300 mg Tablet 1,200 mg PO QHS Linzess 72 mcg Capsule 72 mcg PO DAILY phenazopyridine [Pyridium] 200 MG tablet 200 mg PO TID PRN PRN (Reason: Bladder Spasms) 7 Days Qty: 30 0RF fluoxetine 10 mg capsule 10 mg PO DAILY ibuprofen 600 mg tablet 600 mg PO 4X/DAY PRN (Reason: Pain Or Fever) Qty: 20 0RF diazepam [diazepam] 5 mg tablet 5 mg PO Q8 PRN (Reason: Muscle Spasm) Qty: 12 0RF hydrocodone-acetaminophen [hydrocodone-acetaminophen] 5-325 mg tablet 1 tab PO Q4H PRN PRN (Reason: Pain) 2 Days Qty: 10 0RF sulfamethoxazole-trimethoprim [sulfamethoxazole-trimethoprim] 800-160 mg tablet 1 tab PO BID Qty: 20 0RF Humulin R U-500 (Conc) Insulin 500 unit/mL solution See Rx Instructions SC BID Qty: 20 11RF Dose Instruction: take what appears to be 31U in AM and 32U at PM using an insulin syringe SC BID; take what appears to be 30U bid using an insulin syringe SC BID Rx Instructions: basal 2.9 units per hour Primary Care Provider: Yifan Blum Referrals: Yifan Blum, DO [Primary Care Provider] - 1-2 Days if not improving Disposition Disposition: Home, Self Care
[2023-03-10] MEDS: Dextrose 50%-Water 25 GM/50 ML DISP.SYRIN IV (20:33)
[2023-03-10] MEDS: Ondansetron 4 MG/2 ML Vial IV (20:35)
[2023-03-10] MEDS: Metoclopramide 10 MG/2 ML Vial IV (20:37)
[2023-03-10 20:41] LABS: Bedside Glucose 65 mg/dL (74-106)
[2023-03-10] MEDS: 0.9% Normal Saline (1000mL) 1,000 ML 1000 ML IV (20:41)
--- OUTSIDE RECORDS SUMMARY | 2023-03-10 20:53 | XMS RPT_ITS | CCD ---
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 [facility] 2 [facility] 01-10-2022 12:37-0500 Body weight 109.05 kg Carmen Gamez APRN.DOUGHNUT ICER Work Phone: [facility] 01-10-2022 12:37-0500 Diastolic blood pressure 66 mm[Hg] Carmen Zurawick PANTOGRAPH ENGRAVER.DOUGHNUT ICER Work Phone: [facility] 01-10-2022 12:37-0500 Heart rate 64 /min Carmen Zurawick PANTOGRAPH ENGRAVER.DOUGHNUT ICER Work Phone: [facility] 01-10-2022 12:37-0500 Respiratory rate 16 /min Carmen Zurawick PANTOGRAPH ENGRAVER.DOUGHNUT ICER Work Phone: [facility] 01-10-2022 12:37-0500 Systolic blood pressure 112 mm[Hg] Carmen Zurawick PANTOGRAPH ENGRAVER.DOUGHNUT ICER Work Phone: [facility] 12-21-2021 14:25-0500 Body weight 108.23 kg Lizet Addy PANTOGRAPH ENGRAVER.DOUGHNUT ICER Work Phone: [facility] 12-21-2021 14:25-0500 Diastolic blood pressure 84 mm[Hg] Lizet Addy PANTOGRAPH ENGRAVER.DOUGHNUT ICER Work Phone: [facility] 12-21-2021 14:25-0500 Heart rate 106 /min Lizet Addy PANTOGRAPH ENGRAVER.DOUGHNUT ICER Work Phone: [facility] 12-21-2021 14:25-0500 Respiratory rate 18 /min Lizet Addy PANTOGRAPH ENGRAVER.DOUGHNUT ICER Work Phone: [facility] 12-21-2021 14:25-0500 SaO2% (BldA) [Mass fraction] 97 % Lizet Addy PANTOGRAPH ENGRAVER.DOUGHNUT ICER Work Phone: [facility] 12-21-2021 14:25-0500 Systolic blood pressure 130 mm[Hg] Lizet Addy PANTOGRAPH ENGRAVER.DOUGHNUT ICER Work Phone: [facility] 12-08-2021 11:14-0400 Body height 153.7 cm Pierre Varela MD Work Phone: [facility] 12-08-2021 11:14-0400 Body weight 108.86 kg Pierre Varela MD Work Phone: [facility] 11-14-2021 14:50-0400 Body temperature 36.81 [degF] Covid 2 [facility] 11-14-2021 14:50-0400 Diastolic blood pressure 78 mm[Hg] Covid 2 [facility] 11-14-2021 14:50-0400 Heart rate 83 /min Covid 2 [facility] 11-14-2021 14:50-0400 Respiratory rate 18 /min Covil 2 [facility] 11-14-2021 14:50-0400 SaO2% (BldA) [Mass fraction] 96 % [facility] 2 [facility] 11-14-2021 14:50-0400 Systolic blood pressure 136 mm[Hg] [facility] 2 [facility] 11-09-2021 11:38-0400 Body temperature 98.91 [degF] Wilber Shine PANTOGRAPH ENGRAVER.DOUGHNUT ICER Work Phone: [facility] 11-09-2021 11:38-0400 Body weight 109.14 kg Wilber Riojas PANTOGRAPH ENGRAVER.DOUGHNUT ICER Work Phone: [facility] 11-09-2021 11:38-0400 Diastolic blood pressure 80 mm[Hg] Wilber Shine PANTOGRAPH ENGRAVER.DOUGHNUT ICER Work Phone: [facility] 11-09-2021 11:38-0400 Heart rate 95 /min Wilber Shine PANTOGRAPH ENGRAVER.DOUGHNUT ICER Work Phone: [facility] 11-09-2021 11:38-0400 Respiratory rate 18 /min Wilber Shine PANTOGRAPH ENGRAVER.DOUGHNUT ICER Work Phone: [facility] 11-09-2021 11:38-0400 SaO2% (BldA) [Mass fraction] 96 % Wilber Shine PANTOGRAPH ENGRAVER.DOUGHNUT ICER Work Phone: [facility] 11-09-2021 11:38-0400 Systolic blood pressure 122 mm[Hg] Wilber Shine PANTOGRAPH ENGRAVER.DOUGHNUT ICER Work Phone: [facility] 10-18-2021 12:08-0400 Body temperature 98.71 [degF] Stella Mazariegos PA-C Work Phone: [facility] 10-18-2021 12:08-0400 Body weight 107.96 kg Stella Athy PA-C Work Phone: [facility] 10-18-2021 12:08-0400 Diastolic blood pressure 80 mm[Hg] Stella Athy PA-C Work Phone: [facility] 10-18-2021 12:08-0400 Heart rate 100 /min Stella Athy PA-C Work Phone: [facility] 10-18-2021 12:08-0400 Respiratory rate 16 /min Stella Athy PA-C Work Phone: [facility] 10-18-2021 12:08-0400 SaO2% (BldA) [Mass fraction] 96 % Stella Athy PA-C Work Phone: [facility] 10-18-2021 12:08-0400 Systolic blood pressure 124 mm[Hg] Stella Athy PA-C Work Phone: [facility] 10-12-2021 13:22-0400 Body height 153.7 cm Unique Fowler MD Work Phone: [facility] 10-12-2021 13:22-0400 Body weight 108.14 kg Unique Fowler MD Work Phone: [facility] 10-12-2021 13:22-0400 Diastolic blood pressure 75 mm[Hg] Unique Fowler MD Work Phone: [facility] 10-12-2021 13:22-0400 Heart rate 94 /min Unique Fowler MD Work Phone: [facility] 10-12-2021 13:22-0400 Respiratory rate 16 /min Unique Fowler MD Work Phone: [facility] 10-12-2021 13:22-0400 SaO2% (BldA) [Mass fraction] 98 % Unique Fowler MD Work Phone: [facility] 10-12-2021 13:22-0400 Systolic blood pressure 139 mm[Hg] Unique Fowler MD Work Phone: [facility] 09-08-2021 14:58-0400 Body height 149.9 cm Magalie Hermosillo MD Work Phone: [facility] 09-08-2021 14:58-0400 Body weight 108.32 kg Magalie Hermosillo MD Work Phone: [facility] 09-08-2021 14:58-0400 Diastolic blood pressure 81 mm[Hg] Magalie Hermosillo MD Work Phone: [facility] 09-08-2021 14:58-0400 Heart rate 94 /min Magalie Hermosillo MD Work Phone: [facility] 09-08-2021 14:58-0400 Respiratory rate 18 /min Magalie Hermosillo MD Work Phone: [facility] 09-08-2021 14:58-0400 SaO2% (BldA) [Mass fraction] 99 % Magalie Hermosillo MD Work Phone: [facility] 09-08-2021 14:58-0400 Systolic blood pressure 125 mm[Hg] Magalie Hermosillo MD Work Phone: [facility] 08-10-2021 08:18-0400 Body height 149.9 cm Miguelito Lees PA-C Work Phone: [facility] 08-10-2021 08:18-0400 Body weight 109.82 kg Miguelito Lees PA-C Work Phone: [facility] 08-10-2021 08:18-0400 Diastolic blood pressure 57 mm[Hg] Miguelito Lees PA-C Work Phone: [facility] 08-10-2021 08:18-0400 Heart rate 95 /min Miguelito Lees PA-C Work Phone: [facility] 08-10-2021 08:18-0400 SaO2% (BldA) [Mass fraction] 98 % Miguelito Lees PA-C Work Phone: [facility] 08-10-2021 08:18-0400 Systolic blood pressure 124 mm[Hg] Miguelito Lees PA-C Work Phone: [facility] 07-31-2021 12:32-0400 Body height 157 cm Lizet Addy PANTOGRAPH ENGRAVER.DOUGHNUT ICER Work Phone: [facility] 07-31-2021 12:32-0400 Body weight 108.41 kg Lizet Addy PANTOGRAPH ENGRAVER.DOUGHNUT ICER Work Phone: [facility] 07-31-2021 12:32-0400 Diastolic blood pressure 80 mm[Hg] Lizet Addy PANTOGRAPH ENGRAVER.DOUGHNUT ICER Work Phone: [facility] 07-31-2021 12:32-0400 Heart rate 94 /min Lizet Addy PANTOGRAPH ENGRAVER.DOUGHNUT ICER Work Phone: [facility] 07-31-2021 12:32-0400 Respiratory rate 16 /min Lizet Addy PANTOGRAPH ENGRAVER.DOUGHNUT ICER Work Phone: [facility] 07-31-2021 12:32-0400 SaO2% (BldA) [Mass fraction] 98 % Lizet Addy PANTOGRAPH ENGRAVER.DOUGHNUT ICER Work Phone: [facility] 07-31-2021 12:32-0400 Systolic blood pressure 118 mm[Hg] Lizet Addy PANTOGRAPH ENGRAVER.DOUGHNUT ICER Work Phone: [facility] 06-24-2021 11:50-0400 Body temperature 98.49 [degF] Julia Daniels PANTOGRAPH ENGRAVER.DOUGHNUT ICER Work Phone: [facility] 06-24-2021 11:50-0400 Body weight 108.41 kg Julia Daniels PANTOGRAPH ENGRAVER.DOUGHNUT ICER Work Phone: [facility] 06-24-2021 11:50-0400 Diastolic blood pressure 66 mm[Hg] Julia Daniels PANTOGRAPH ENGRAVER.DOUGHNUT ICER Work Phone: [facility] 06-24-2021 11:50-0400 Heart rate 102 /min Julia Daniels PANTOGRAPH ENGRAVER.DOUGHNUT ICER Work Phone: [facility] 06-24-2021 11:50-0400 Respiratory rate 16 /min Julia Daniels APRN.DOUGHNUT ICER Work Phone: [facility] 06-24-2021 11:50-0400 SaO2% (BldA) [Mass fraction] 96 % Julia Daniels APRN.DOUGHNUT ICER Work Phone: [facility] 06-24-2021 11:50-0400 Systolic blood pressure 122 mm[Hg] Julia Daniels APRN.DOUGHNUT ICER Work Phone: [facility] 06-09-2021 09:35-0400 Body height 149.9 cm Pierre Varela MD Work Phone: [facility] 06-09-2021 09:35-0400 Body weight 104.33 kg Pierre Varela MD Work Phone: [facility] 05-26-2021 10:43-0400 Body height 149.9 cm Chet Malik PA-C Work Phone: [facility] 05-26-2021 10:43-0400 Body weight 104.33 kg Chet Malik PA-C Work Phone: [facility] 05-16-2021 12:54-0400 Body height 149.9 cm [facility] 05-16-2021 12:54-0400 Body weight 104.33 kg [facility] 05-16-2021 12:54-0400 Diastolic blood pressure 83 mm[Hg] [facility] 05-16-2021 12:54-0400 Heart rate 79 /min [facility] 05-16-2021 12:54-0400 Systolic blood pressure 140 mm[Hg] [facility] 05-15-2021 14:03-0400 Body height 149.9 cm Pierre Varela MD Work Phone: [facility] 05-15-2021 14:03-0400 Body weight 104.33 kg Pierre Varela MD Work Phone: [facility] 11-01-2016 08:39-0400 BMI (Body Mass Index) 43.23 kg/m2 Marcia Jiménez LPN [facility] Work Phone: 11-01-2016 08:39-0400 Body Temperature 98.5 [degF] Marcia Jiménez LPN [facility] Work Phone: 11-01-2016 08:39-0400 BP Diastolic 75 mm[Hg] Marcia Jiménez LPN [facility] Work Phone: 11-01-2016 08:39-0400 BP Systolic 117 mm[Hg] Marcia Jiménez LPN [facility] Work Phone: 11-01-2016 08:39-0400 Height 152.4 cm Marcia Jiménez LPN [facility] Work Phone: 11-01-2016 08:39-0400 Pulse (Heart Rate) 88 /min Marcia Jiménez LPN [facility] Work Phone: 11-01-2016 08:39-0400 Respiratory Rate 20 /min [facility] Work Phone: 11-01-2016 08:39-0400 Weight 100.43 kg Marcia Jiménez LPN [facility] Work Phone: 05-01-2016 09:28-0400 BMI (Body Mass Index) 42.18 kg/m2 Svetlana Garcia NP [facility] Work Phone: 05-01-2016 09:28-0400 Body Temperature 98.6 [degF] S[facility]lana [facility] Work Phone: 05-01-2016 09:28-0400 BP Diastolic 73 mm[Hg] Svetlana Garcia NP [facility] Work Phone: 05-01-2016 09:28-0400 BP Systolic 111 mm[Hg] Svetlana Garcia NP [facility] Work Phone: 05-01-2016 09:28-0400 Height 152.4 cm Svetlana Garcia NP [facility] Work Phone: 05-01-2016 09: Pulse (Heart Rate) 82 /min Svetlana Garcia NP [facility] Work Phone: 05-01-2016 09: Pulse Oximetry 97 % Svetlana Garcia NP [facility] Work Phone: 05-01-2016 09:040 Respiratory Rate 18 /min Svetlana [facility] Work Phone: 05-01-2016 09: Weight 97.98 kg Svetlana Garcia NP [facility] Work Phone: Encounters Encounter Date Encounter Type Care Provider Facility Start: 02-01-2023 End: 02-01-2023 ambulatory YIFAN BLUM Facility:[facility] Start: 01-24-2023 Telephone encounter Jorge L masterson MD Work Phone: Hematology/Oncology Procedures Date Procedure Procedure Detail Performing Clinician Start: 12-12-2022 Mra head w/o contrst material Norma Brennan MD Work Phone: Start: 04-02-2022 Brncdilat rspse spmt ry pre&post-brncdilat admn Yifan Blum DO Work Phone: Start: 01-10-2022 Ecg routine ecg w/le ast 12 lds i&r only [facility] Provider Start: 10-12-2021 Hemoglobin A1c/Hemoglobin.total in Blood Unique Fowler MD Work Phone: Start: 05-10-2021 Mri any jt upper ext remity w/o contrast matrl Chet Malik PA-C Work Phone: Start: 03-24-2020 Myocardial spect mul tiple studies Earnestine Helton PANTOGRAPH ENGRAVER.DOUGHNUT ICER Work Phone: Start: 05-01-2016 End: 05-14-2016 *CMP Complete Metabolic Panel Svetlana Garcia [employer] INSUL[employer] SUPERVISOR Work Phone: Start: 05-01-2016 End: 05-14-2016 *Microalbumin, Creatine Ratio, rand urine Svetlana Dixonvikas [employer] INSUL[employer] SUPERVISOR Work Phone: Start: 05-01-2016 End: 05-14-2016 HbA1c Svetlana Dixonvikas [employer] INSULATION SUPERVISOR Work Phone: Start: 05-01-2016 End: 05-14-2016 Lipid panel [AGGREGATE] Svetlana Huang Jose N P Work Phone: Start: 11-10-2008 Mammography Yifan stephenson DO Work Phone: Plan of Treatment Date Care Activity Detail Author Start: 11-13-2025 Urine microalbumin profile [facility] Start: 12-21-2023 BP Controlled (<130/80) BP Controlle d (<130/80) [facility] Start: 10-30-2023 3 comp foot exam completed Diabetic Foot Exam [facility] Start: 10-30-2023 Annual PCP Team Security Compliance Specialist jimy Disease Visit Annual PCP Team Chronic Disease Visit [facility] Start: 10-30-2023 Diabetic foot examination Diabetic F oot Exam [facility] Start: 10-30-2023 Hepatitis B surface antibody level LDL Cholesterol [facility] Start: 10-30-2023 Pneumococcal vaccination Pneum ococcal Vaccine (2 - PCV) [facility] Immunizations Immunization Date Immunization Notes Care Provider Marleny good 06-14-2021 zoster vaccine recombinant Julia Daniels APRN.DOUGHNUT ICER Work Phone: [facility] 10-21-2020 influenza, seasonal, injectable Yifan Blum DO Work Phone: [facility] Work Phone: 05-13-2020 COVID-19 vaccine, ag e 12+ yr (PFIZER-BIONTECH - PURPLE TOP) Yifan Blum DO Work Phone: [facility] 04-22-2020 COVID-19 vaccine, ag e 12+ yr (PFIZER-BIONTECH - PURPLE TOP) Yifan Blum DO Work Phone: [facility] 10-28-2019 pneumococcal polysaccharide vaccine, 23 valent Yifan Blum DO Work Phone: [facility] Work Phone: 10-07-2019 influenza, seasonal, injectable Yifan Blum DO Work Phone: [facility] 10-02-2019 influenza, injectabl e, quadrivalent, preservative free Yifan Blum DO Work Phone: [facility] Work Phone: 10-23-2018 Influenza, injectabl e, Madin [place] Canine Kidney, preservative free, quadrivalent Yifan Blum DO Work Phone: [facility] Work Phone: 12-04-2017 Influenza, injectabl e, Madin [place] Canine Kidney, preservative free, quadrivalent Yifan Blum DO Work Phone: [facility] Work Phone: 12-04-2017 influenza, seasonal, injectable Yifan Blum DO Work Phone: [facility] 01-05-2017 influenza, injectabl e, quadrivalent, preservative free Yifan Blum DO Work Phone: [facility] Work Phone: 01-05-2017 influenza, seasonal, injectable Yifan Blum DO Work Phone: [facility] 11-14-2015 tetanus toxoid, redu marquis diphtheria toxoid, and acellular pertussis vaccine, adsorbed Yifan Blum DO Work Phone: [facility] Work Phone: 11-01-2015 influenza, injectabl e, quadrivalent, contains preservative Yifan Blum DO Work Phone: [facility] Work Phone: 10-24-2014 influenza virus vacc ine, unspecified formulation Yifan Blum DO Work Phone: [facility] 12-09-2013 influenza, seasonal, injectable Yifan Blum DO Work Phone: [facility] 06-03-2013 measles, mumps and rubella virus vaccine Yifan Blum DO Work Phone: [facility] 11-18-2012 influenza virus vacc ine, unspecified formulation Yifan Blum DO Work Phone: [facility] Work Phone: 11-22-2009 influenza virus vacc ine, unspecified formulation Yifan Blum DO Work Phone: [facility] Work Phone: 12-15-2008 novel influenza-H1N1 -09, preservative-free, injectable Yifan Blum DO Work Phone: [facility] 11-24-2008 influenza virus vacc ine, unspecified formulation Yifan Blum DO Work Phone: [facility] 11-23-2008 pneumococcal polysaccharide vaccine, 23 valent Yifan Blum DO Work Phone: [facility] Work Phone: 12-18-2007 influenza virus vacc ine, unspecified formulation Yifan Blum DO Work Phone: [facility] Work Phone: 12-17-2006 influenza virus vacc ine, unspecified formulation Yifan Blum DO Work Phone: [facility] Work Phone: 12-12-2005 influenza virus vacc ine, unspecified formulation Yifan Blum DO Work Phone: [facility] Work Phone: 12-12-2005 pneumococcal polysaccharide vaccine, 23 valent Yifan Blum DO Work Phone: [facility] Work Phone: 10-12-2005 tetanus and diphther ia toxoids, adsorbed, preservative free, for adult use (2 Lf of tetanus toxoid and 2 Lf of diphtheria toxoid) Yifan Blum DO Work Phone: [facility] Work Phone: Payers Date Payer Category Payer Medicaid [id number] 2013 Medicaid [employer] [id number] 2013-Present [phone] [address] [place] [address] Medicaid [id number] 2013 Medicaid [id number] 2013 Medicaid [id number] Social History Date Type Detail Facility Start: 10-02-2018 End: 10-12-2021 Tobacco smoking status NHIS Ex-smoker [place] [facility] End: 04-13-2009 History of tobacco use Current smoker [facility] End: 04-13-2009 History of tobacco use Cigarette Smoker [facility] Start: 10-02-2018 End: 06-25-2022 Cigarettes smoked current (pack per day) - Reported 0.25 [facility] Start: 10-02-2018 End: 10-12-2021 Tobacco use and exposure Smokeless tobacco non-user [facility] Start: 04-27-2021 End: 01-17-2023 Alcohol intake Current drinker of alcohol (finding) [facility] Start: 2020 History SDOH Alcohol Std Drinks 98 [facility] Start: 2020 End: 02-26-2021 History SDOH Alcohol Binge 1 [place] [facility] Start: 2020 End: 11-13-2021 History SDOH Social Connections Phone 2 [facility] Start: 2020 History SDOH Social Connections Living 3 [facility] Start: 2020 History SDOH Stress 5 [facility] Start: 2020 History SDOH Financial 4 [facility] Start: 2020 Education 11 [facility] Start: 1970 Sex Assigned At Not on file C [facility] Start: 02-23-2020 End: 01-10-2022 Exposure to SARS-CoV-2 (event) Not sure [facility] Start: 10-30-2021 End: 11-13-2021 Exposure to SARS-CoV-2 (event) Yes [facility] Start: 2020 End: 06-25-2022 Social connection and isolation panel [facility] Do you belong to any clubs or organizations such as jainism groups, unions, fraternal or athletic groups, or school groups? No [facility] Are you now , , , , never or living with a partner? [facility] Frequency of Alcohol Consumption Not on file [facility] How often do you hav e 6 or more drinks on 1 occasion? Never [facility] How hard is it for y ou to pay for the very basics like food, housing, medical care, and heating Not very hard [facility] Do you feel stress - tense, restless, nervous, or anxious, or unable to sleep at night because your mind is troubled all the time - these days [OSQ] Very much [facility] (I/We) worried whegiles er (my/our) food would run out before (I/we) got money to buy more. Never true [facility] The food that (I/we) bought just didn't last, and (I/we) didn't have money to get more. Sometimes true [facility] Start: 02-25-2018 Tobacco Comment vape only when stres sed [facility] Medical Equipment Procedure Code Equipment Code Equipment Origin al Text Equipment Identifier Dates K-Wire W/Wire Gu linda .062 X 5.5 - [id number] Start: 09-17-2012 Clinical Notes 04-10-2018 to 02-01-2023 Telephone Encounter - Elham Herman - 01/24/2023 12:28 PM ESTTelephone Encounter - Anabella Mcmahon LPN - 01/24/2023 11:28 AM ESTTelephone Encounter - Leisa Salguero - 01/24/2023 11:20 AM EST Note Date & Type Note Facility 02-01-2023 Note [facility] 01-24-2023 Miscellaneous Notes Spoke with patient and scheduled. Elham Herman Schedule with Dr. Hill. Anabella Mcmahon LPN Please review and advise. 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 Mira Mcpherson Ma I would recommend that she gets opinion by Senior Software Manager Yifan Blum DO Patient sent mychart concerned with recent lab results of factor VIII. Would like pcp to review and if she needs to start blood thinners? Selena Hill Ma documented in this encounter [facility] 01-22-2023 Miscellaneous Notes Patient asking for blood glucose meter. Last one was sent in 2019 and it was sent for generic brand. Please review. documented in this encounter [facility] 01-17-2023 Miscellaneous Notes Phoned patient and given message to , to let patient know pcp ordered lab. Order placed for labs, please inform patient Yifan Blum DO Contacted patient. Patient states she would like the following lab order placed: FACTOR VIII:C ASSAY Pt reports she had this last checked on 09/16/20 and was suppose to have it rechecked. Please advise patient. Also, pt would like Dr. Blum to know that her eye provider at [facility] put her on Latanoprost eye medication due to high pressure in her eyes. Reports it has been helping . Ynes Delvalle RN Please call and clarify what lab testing she is requesting? Yifan Blum DO Images from the original note were not included. Jacque Rodriguez [facility] My Chart Rx Pool I need to do a recheck for factor v111 last time mine was 186 I was never rechecked like I was supposed to be if you could put in for that blood test Ty documented in this encounter [facility] 01-07-2023 Miscellaneous Notes The following approved medication requests have been transmitted electronically. Requested Prescriptions Signed Prescriptions Disp Refills methocarbamol (ROBAXIN) 750 mg tablet 30 tablet 1 Sig: Take 1 tablet by mouth four times daily. Authorizing Provider: ELVER TAM DO Not a patient of Dr Mendoza. Mary Del Castillo documented in this encounter [facility] 01-07-2023 Miscellaneous Notes Patient has been identified by name and date of : Patient phones for refill(s): Requested Prescriptions Pending Prescriptions Disp Refills ibuprofen (MOTRIN) 800 mg tablet 60 tablet 1 Sig: Take 1 tablet by mouth every 8 hours as needed for pain. Date of last office visit in primary care: 12/06/2022 Date of next office visit in primary care: Visit date not found Last 2 Encounter Wt Readings: Date: Wt: 12/20/2022 110.4 kg (243 lb 4.8 oz) 12/10/2022 109.8 kg (242 lb) Previous labs/tests for medication: Not applicable Please advise. Thank you. Farrah Beckford LPN. documented in this encounter [facility] 01-07-2023 Miscellaneous Notes Closed. documented in this encounter [facility] 01-07-2023 Miscellaneous Notes See telephone note. documented in this encounter [facility] 01-04-2023 Note [facility] 12-24-2022 Note [facility] 12-24-2022 Note [facility] 12-20-2022 Note HNO ID: [id number] Author: Norma Brennan MD Service: ? Author Type: Physician Type: Progress Notes Filed: 12/20/2022 12:33 PM Note Text: SPINE SURGERY ESTABLISHED This is an in-person visit. DATE OF SERVICE: 12/20/2022 DATE OF LAST VISIT: 11/09/2022 SUBJECTIVE: HPI:Jacque Rodriguez is a 52 year old female presenting alone. At [facility], the patient reported low back pain, as well as numbness in both legs down to the toes. She also mentioned neck pain, which she had stated was her priority. She reported episodes of dizziness and lightheadedness, usually when sitting up in bed. 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 She had tested positive for diabetes and had stated that it was well controlled, with her last HGB A1C being 5.8% on 10/29/2022. She had also stated that she had not tried neck injections or physical therapy. She had mentioned that she was starting to have weakness in the left leg and was struggling a little when getting up or getting dressed. Today, the patient reports starting to experiences headache often. She states she is taking Keppra. She also reports low back pain radiating into the left hip. She states she is unable to navigate a grocery store without having to sit down for every few minutes. She reports having some weakness in the legs which she notices when getting in and out of vehicles. Approximate date and time of pain or symptom onset: symptoms began around a couple years ago. PAIN EVALUATION 12/20/2022 1133 Pain Level: 8 Pain Location: Back-Lower neck Description: Sharp Frequency: Continuous AMBULATORY STATUS: Impaired Community Distances ANTIPLATELET OR ANTICOAGULATION STATUS: No PREVIOUS CONSERVATIVE TREATMENTS: gabapentin, MOTRIN, ROBAXIN, NORCO. REVIEW OF SYSTEMS: GENERAL: No weight loss or malaise MUSCULOSKELETAL: SEE HPI NEURO: No history of syncope, paralysis, seizures or tremors MEDICATIONS: clotrimazole (LOTRIMIN AF, CLOTRIMAZOLE,) 1 % cream Apply to affected area two times a day. acyclovir (ZOVIRAX) 400 mg tablet Take 1 tablet by mouth three times a day. HYDROcodone-acetaminophen (NORCO) 5-325 mg per tablet Take 1 tablet by mouth every 6 hours as needed for pain for up to 7 days. meclizine (ANTIVERT) 25 mg tab Take 1 tablet by mouth three times a day as needed (vertigo). triamcinolone acetonide (NASACORT AQ) 55 mcg nasal inhaler Use 2 Sprays in each nostril once daily. pravastatin (PRAVACHOL) 20 mg tablet Take 1 tablet by mouth daily at bedtime. methocarbamol (ROBAXIN) 750 mg tablet Take 1 tablet by mouth four times daily. ibuprofen (MOTRIN) 800 mg tablet Take 1 tablet by mouth every 8 hours as needed for pain. insulin regular human, CONCENTRATED 500 UNIT/ML, (HUMULIN R) 500 unit/mL soln Use 120 pump units daily (equivalent of 600 units daily) as directed via insulin pump. gabapentin (NEURONTIN) 300 mg capsule Take 3 tablets by mouth twice daily (in the morning and midday), then take 4 tablets by mouth at bedtime. loratadine-pseudoephedrine ER (ALLERGY RELIEF D12) 5-120 mg per tablet Take 1 tablet by mouth twice daily. glucagon (BAQSIMI) 3 mg/actuation nasal spray Use 1 Homeland in the nose as needed for low blood sugar. May repeat after 15 minutes using a new device if there is no response. lansoprazole (PREVACID) 30 mg capsule Take 1 capsule by mouth twice daily. atenolol (TENORMIN) 50 mg tablet Take 1 tablet by mouth once daily. pantoprazole sodium (PROTONIX ORAL) Take by mouth. promethazine (PHENERGAN) 25 mg tablet Take 1 tablet by mouth every 6 hours as needed (for nausea). blood sugar diagnostic (CONTOUR NEXT TEST STRIPS) test strip Use as instructed to test glucose 4 times daily; E11.42, IDDM elderberry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 Coumadin (warfarin), Plavix (clopidogrel), Ticlid (ticlopidine hydrochloride), Agrylin (anagrelide), Xarelto (Rivaroxaban), Pradaxa (Dabigatran), Eliquis (Apixaban), and Effient (Prasugrel). You MUST call the doctors who orders those medicines for instructions on altering the dosage before your colonoscopy. All other medications should be taken the day of the exam with a sip of water including ASPIRIN. Five (5) Days Before Your Colonoscopy Do NOT take medicines that stop diarrhea - such as Imodium, Kaopectate, or Pepto Bismol. Do NOT take fiber supplements - such as Metamucil, Citrucel, or Perdiem. Do NOT take products that contain iron - such as multi-vitamins (the label lists what is in the products). Do NOT take Vitamin E. Buy the prescription bowel preparation solution at your local pharmacy or drugstore pharmacy. 1 01/2019 Bowel Preparation Instructions for: Golytely, Nulytely, Trilyte or Colyte (polyethylene glycol 3350 and electrolytes) Three (3) Days Before Your Colonoscopy Do NOT eat high-fiber foods - such as popcorn, beans, seeds (flax, sunflower, quinoa), multigrain bread, nuts, salad/vegetables, or fresh and dried fruit. One (1) Day Before Your Colonoscopy Only drink clear liquids the ENTIRE DAY before your colonoscopy. Do NOT eat any solid foods. Drink at least 8 ounces of clear liquids every hour after waking up. The clear liquids you can drink include: Clear Liquid (NO RED LIQUIDS) DO NOT DRINK Gatorade, Pedialyte or Powerade Clear broth or bouillon Coffee or tea (no milk or non-dairy creamer) Carbonated and non-carbonated soft drinks Greg-Aid or other fruit flavored drinks Strained fruit juices (no pulp) Jell-O, popsicles, hard candy Water Alcohol Milk or non-dairy creamers Noodles or vegetables in soup Juice with pulp Liquid you cannot see through Do not use tobacco/vaping products The bowel preparation solution will be consumed in two parts. Mix the solution the evening before your colonoscopy and refrigerate before drinking. You may add the flavor pack that came with the bowel preparation. Do NOT add ice, sugar or any other flavorings to the solution. Part 1 At 6:00 PM - Evening before your colonoscopy Drink an 8-oz glass of bowel preparation every 10 minutes for a total of 8 glasses. You may continue to drink clear liquids until midnight. Part 2 On the day of your colonoscopy you may drink clear liquids up to (three) 3 hours before your procedure. 4 1/2 hours before your colonoscopy Drink an 8-oz glass of bowel preparation every 10 minutes for a total of 8 glasses. Fifteen (15) minutes later, drink an 8-oz glass of clear liquids every 15 minutes for a total of 2 glasses. You may continue to drink clear liquids up to (three) 3 hours before your exam. 2 01/2019 documented in this encounter [facility] 10-29-2022 History of Present illness Narrative Chief Complaint Patient presents with: Physical HPI Jacque Rodriguez is a 52 year old female who presents here today for Above Complaints. Today: Blood sugars are stable with her pump. Has been having lower back troubles and has been seeing spine specialists and will be seeing neurosurgery later this month. Has not been able to be as active as previously. Denies other concerns or complaints today. Past medical history, appointments, medications, allergies reviewed. 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 Will need LMWH or OAC prophylaxis for elective surgery. 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 Irritable bowel syndrome casued by Metformin Lateral epicondylitis of right elbow 04/07/2013 Mitral valve disorder Muscle mass 11/13/2011 Myofascial pain 01/04/2016 Pain in limb 08/29/2006 Painful orthopaedic hardware (HCC) 12/15/2013 PLANTAR Fasciitis 07/31/2005 Proteinuria Pure hypercholesterolemia Regional enteritis of small intestine with large intestine (HCC) Residual foreign body in soft tissue 01/11/2005 Snoring Sprain of ankle, unspecified site 11/01/2009 Thoracic or lumbosacral neuritis or radiculitis, unspecified 06/09/2009 Trigger thumb of left hand 11/04/2012 Type I (juvenile type) diabetes mellitus without mention of complication, uncontrolled 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 Vertigo Weakness 02/24/2016 Previous Surgical History PAST SURGICAL HISTORY Procedure Laterality Date DELIVERY ONLY , 11/12 and 10/15 , low cervical x3 EGD TRANSORAL BIOPSY SINGLE/MULTIPLE 08/03/2016 distal erosive gastritis, no retained food, no hiatal hernia ESOPHAGOGASTRODUODENOSCOPY TRANSORAL DIAGNOSTIC 02/01/2021 EXCISION GANGLION WRIST DORSAL/VOLAR PRIMARY Right 08/24/2014 Excison mass right wrist INCISE FINGER TENDON SHEATH Left 02/14/2022 Left index trigger finger release LIG/TRNSXJ FLP TUBE ABDL/VAG APPR UNI/BI 10/29/2003 Tubal ligation NEUROPLASTY &/TRANSPOSITION ULNAR NERVE ELBOW 12/21/2011 Ulnar nerve decompression left elbow NEUROPLASTY &/TRANSPOSITION ULNAR NERVE ELBOW 04/17/2012 Ulnar nerve decompression right elbow OPEN TREATMENT METATARSAL FRACTURE EACH 09/15/2012 ORIF left 5th Metatarsal PAST SURGICAL HISTORY OF 01/27/2009 Right wrist carpal tunnel surgery PAST SURGICAL HISTORY OF 03/17/2009 Left wrist carpal tunnel surgery PAST SURGICAL HISTORY OF 06/2011 left elbow cellulitis tendon surgery PAST SURGICAL HISTORY OF 12/19/2012 left trigger thumb release PAST SURGICAL HISTORY OF 01/22/2014 removal of hardware, foot. PAST SURGICAL HISTORY OF Left 11/30/2016 plantar fasciotomy w/ resection of infracalcaneal spur; Dr. Hand PAST SURGICAL HISTORY OF Right 11/14/2018 4.9lb lipoma removed left lower leg PAST SURGICAL HISTORY OF Right 06/17/2020 Arthroplasty-right 5th and 5th toes Dr. Hand DPM TNOT ELBOW LATERAL/MEDIAL DEBRIDE OPEN 05/15/2013 Right lateral epicondyle debridement TONSILLECTOMY PRIMARY/SECONDARY <AGE 12 Tonsillectomy WRIST SURGERY HX Right 06/2021 Family History FAMILY HISTORY Problem Relation Age of Onset Diabetes Mother not in contact Diabetes Father Lipids Father Heart Father [place] & Heart surg Seizures Father r/t TBI Alzheimer's Disease Father other (Other) Father fell and fractured hip- also perf bowel in fall Breast Cancer Maternal Grandmother Heart Maternal Grandfather Diabetes Paternal Grandmother Anesthesia Problems No Family History Malig Hyperthermia No Family History Patient Allergies ALLERGIES Allergen Reactions Darvocet A500 [Prop* GI Upset Mirtazapine Unknown Penicillins Anaphylaxis Throat swells shut Adhesive Tape-Silic* Rash, Itching, Other: See Comments Peels skin off Etodolac GI Upset Latex Rash Lipitor [Atorvastat* Diarrhea Lovastatin Myalgia Muscle cramping Mobic [Meloxicam] GI Upset Morphine Vomiting Percocet [Oxycodone* Itching Propoxyphene Unknown Simvastatin GI Upset Nausea and vomiting Tramadol GI Upset Vancomycin Hives Vicodin [Hydrocodon* Other: See Comments itching and nightmares Current Medications Current Outpatient Medications on File Prior to Visit Medication Sig methocarbamol (ROBAXIN) 750 mg tablet Take 1 tablet by mouth four times daily. meclizine (ANTIVERT) 25 mg tab Take 1 tablet by mouth three times daily as needed (vertigo). ibuprofen (MOTRIN) 800 mg tablet Take 1 tablet by mouth every 8 hours as needed for pain. loratadine-pseudoephedrine ER (ALLERGY RELIEF D12) 5-120 mg per tablet Take 1 tablet by mouth twice daily. triamcinolone acetonide (NASACORT AQ) 55 mcg nasal inhaler Use 2 Sprays in each nostril once daily. glucagon (BAQSIMI) 3 mg/actuation nasal spray Use 1 [place] in the nose as needed for low blood sugar. May repeat after 15 minutes using a new device if there is no response. gabapentin (NEURONTIN) 300 mg capsule Take 3 tablets by mouth twice daily (in the morning and midday), then take 4 tablets by mouth at bedtime. tenapanor (IBSRELA) 50 mg tablet Take 1 tablet (50 mg) by mouth twice daily. (Patient not taking: No sig reported) rosuvastatin (CRESTOR) 20 mg tablet Take 1 tablet by mouth once daily. albuterol (PROVENTIL) 2.5 mg /3 mL (0.083 %) nebulizer solution Use 3 mL via nebulizer every 4 hours as needed for wheezing/shortness of breath. Use over 5-15minutes. acyclovir (ZOVIRAX) 400 mg tablet Take 1 tablet by mouth three times daily. cholecalciferol, Vitamin D3, (VITAMIN D3) 1,250 mcg (50,000 unit) cap capsule Take 1 capsule by mouth one time a week. levETIRAcetam (KEPPRA) 500 mg tablet Take 1 tablet by mouth twice daily. lansoprazole (PREVACID) 30 mg capsule Take 1 capsule by mouth twice daily. atenolol (TENORMIN) 50 mg tablet Take 1 tablet by mouth once daily. pantoprazole sodium (PROTONIX ORAL) Take by mouth. promethazine (PHENERGAN) 25 mg tablet Take 1 tablet by mouth every 6 hours as needed (for nausea). clotrimazole (LOTRIMIN AF, CLOTRIMAZOLE,) 1 % cream Apply to affected area twice daily. albuterol HFA (PROVENTIL HFA, VENTOLIN HFA) 90 mcg/actuation inhaler Inhale 2 Puffs as instructed every 4 hours as needed for wheezing/shortness of breath. blood sugar diagnostic (CONTOUR NEXT TEST STRIPS) test strip Use as instructed to test glucose 4 times daily; E11.42, IDDM elderberry fruit (ELDERBERRY ORAL) Take 2 Doses by mouth once daily. Gummies linaclotide (LINZESS) 145 mcg capsule Take 1 capsule by mouth DAILY (6 AM). glucagon (GLUCAGON EMERGENCY KIT, HUMAN,) 1 mg solr Inject (1)one mg for insulin shock. Blood-Glucose Sensor (DEXCOM G6 SENSOR) bird 300 Units. Humulin R unit(s)-500 every 3 days Blood-Glucose Meter monitoring kit Use to test glucose daily in case Chelsy not working. DX: E11.65, insulin dependent. Insulin Pump Cartridge crtg Inject subcutaneously. glucose (DEX4 GLUCOSE) 4 gram chewable tablet Take 4 tablets by mouth as needed for Low Blood Sugar. COMPOUNDED PRESCRIPTION Diabetic shoes one pair with inserts Dx Type 1 diabetes E10.65 dicyclomine (BENTYL) 20 mg tablet TAKE 1 TABLET BY MOUTH 3 TIMES A DAY NEEDED multivitamin tablet Take 1 tablet by mouth once daily. COMPOUNDED PRESCRIPTION Shower Grab Bars DX R29.6,R42 Lancets lancets Test blood sugar(s) 4-6 times daily. Dx: Type 2 DM - Uncontrolled E11.65 Insulin: Yes Urine Glucose-Ketones Test (KETO-DIASTIX) strp 1 Strip as needed. No current facility-administered medications on file prior to visit. Social History Social History Tobacco Use Smoking status: Former Packs/day: 0.25 Years: 5.00 Additional pack years: 0.00 Total pack years: 1.25 Types: Cigarettes Quit date: 04/13/2009 Years since quittin.5 Smokeless tobacco: Never Vaping Use Vaping Use: Never used Substance Use Topics Alcohol use: Yes Comment: 2 drinks per year Drug use: No Review of Symptoms REVIEW OF SYSTEMS See HPI, otherwise negative EXAM: BP 132/78 Pulse 84 Resp 18 Wt 111.6 kg (246 lb) LMP 12/06/2015 BMI 48.04 kg/m General Appearance: Well appearing, alert, in no acute distress, well-hydrated, well nourished. and Morbidly obese. Skin: Skin color, texture, turgor normal, no suspicious rashes or lesions. Head: Normocephalic, no masses, lesions, tenderness or abnormalities. Eyes: Anicteric sclera. Pupils are equally round and reactive to light. Extraocular movements are intact. . Ears: External ears normal, canals clear. Nose/Sinuses: Nares normal, septum midline, mucosa normal, no drainage or sinus tenderness. Oropharynx: Lips, mucosa, and tongue normal, teeth and gums normal, oropharynx normal. Neck: Supple, no adenopathy; thyroid symmetric, normal size, no bruits. Back: generalized weakness and decreased ROM, likely due to body habitus as well. Lungs: Lungs clear to auscultation. No wheezing, rhonchi, rales.. Heart: RRR without murmur, gallop, or rubs. No ectopy. Abdomen: Normal abdominal exam, Abdomen soft, non-tender. Bowel sounds normal. No masses, organomegaly. large. Extremities: No deformities, edema, skin discoloration, clubbing or cyanosis. Good capillary refill. . Musculoskeletal: No joint swelling, deformity, or tenderness. Peripheral Pulses: Normal. Neurologic: Gait normal. Reflexes normal and symmetric. Sensation grossly intact.. Lymph Nodes: No cervical lymphadenopathy and No supraclavicular lymphadenopathy. Psychiatric: pleasant, cooperative. Health Maintenance List HPV Testing Never done Pap Testing due on 07/21/2009 Mammogram Screening due on 2011 Colorectal Cancer Screening Never done Pneumococcal Vaccine(2 - PCV) due on 10/27/2020 Diabetic Foot Exam due on 07/31/2022 BP Controlled (<130/80) due on 07/31/2022 Shingrix Vaccine(2 of 2) due on 01/03/2023 HbA1C due on 12/23/2022 Dilated Retinal Exam due on 03/20/2023 LDL Cholesterol due on 06/23/2023 Annual PCP Team Chronic Disease Visit due on 07/20/2023 DTaP,Tdap,Td Vaccine(2 - Td or Tdap) due on 11/13/2025 Spirometry Completed Influenza Vaccine Completed Hepatitis C Screening Completed HIV Screening Completed Covid-19 Vaccine Completed Urine Albumin:Creatinine Ratio Discontinued Data reviewed Previous records, office notes ASSESSMENT/PLAN: 1. Type 2 diabetes mellitus with diabetic polyneuropathy, with long-term current use of insulin (HCC) - ICD9: 250.60, 357.2, V58.67, ICD10: E11.42, Z79.4 (primary diagnosis) - Controlled - Continue current medications - Counseled on healthy diet and regular exercise - Discussed need for and benefit of weight loss. BMI 48.04 kg/(m^2) - COMP METABOLIC PANEL - CBC - HGB A1C 2. Essential hypertension - ICD9: 401.9, ICD10: I10 - Controlled - Continue current medications - Recommend home blood pressure monitoring, to bring results to next visit - Encouraged sodium restriction, DASH or Mediterranean diet - Recommend regular aerobic exercise - Discussed need for and benefit of weight loss. BMI 48.04 kg/(m^2) - COMP METABOLIC PANEL - CBC 3. Pure hypercholesterolemia - ICD9: 272.0, ICD10: E78.00 - LIPID PANEL BASIC 4. BPPV (benign paroxysmal positional vertigo), unspecified laterality - ICD9: 386.11, ICD10: H81.10 Controlled, chronic following COVID 5. Vitamin D deficiency - ICD9: 268.9, ICD10: E55.9 - VITAMIN D 25 HYDROXY 6. COVID-19 long hauler - ICD9: 139.8, ICD10: U09.9 BPPV controlled, chronic following COVID 7. Encounter for vitamin deficiency screening - ICD9: V77.99, ICD10: Z13.21 - VITAMIN D 25 HYDROXY - VITAMIN B12 BLOOD 8. Screening for colon cancer - ICD9: V76.51, ICD10: Z12.11 - PEG 3350-ELECTROLYTES 236 GRAM-22.74 GRAM-6.74 GRAM-5.86 GRAM SOLUTION - COLONOSCOPY SCREENING Lizet Eugene APRN.DOUGHNUT ICER documented in this encounter [facility] 10-25-2022 Note HNO ID: [id number] Author: Marylou Francisco RT(Karen) Service: ? Author Type: Technologist Type: Progress Notes Filed: 10/25/2022 12:49 PM Note Text: Radiology Service Progress Note PATIENT NAME: Jacque Rodriguez DATE OF SERVICE: October 25, 2022 TIME: 12:44 PM PATIENT IDENTITY VERIFICATION COMPLETED USING TWO (2) IDENTIFIERS: Name and Date of confirmed by patient verbally. FALL SCREENING: Has the patient had 2 falls in the last year or 1 fall with injury or currently using an Ambulatory Assistive Device (Walker, Cane, Wheelchair, Crutches, etc.)? No PATIENT GENDER DATA: Female. status: : No status: NO. PATIENT RELEVANT IMPLANT DATA REVIEWED: Yes RADIOLOGY DEPARTMENT: MR; Exam(s) Completed: Spine: Thoracic spine PERIPHERAL IV DATA: Not applicable SIGNED BY: Marylou Francisco RDMS, RVT- [facility] ([facility]) October 25, 2022 12:44 PM [facility] 10-25-2022 History of Present illness Narrative Radiology Service Progress Note PATIENT NAME: Jacque Rodriguez DATE OF SERVICE: October 25, 2022 TIME: 12:44 PM PATIENT IDENTITY VERIFICATION COMPLETED USING TWO (2) IDENTIFIERS: Name and Date of confirmed by patient verbally. FALL SCREENING: Has the patient had 2 falls in the last year or 1 fall with injury or currently using an Ambulatory Assistive Device (Walker, Cane, Wheelchair, Crutches, etc.)? No PATIENT GENDER DATA: Female. status: : No status: NO. PATIENT RELEVANT IMPLANT DATA REVIEWED: Yes RADIOLOGY DEPARTMENT: MR; Exam(s) Completed: Spine: Thoracic spine PERIPHERAL IV DATA: Not applicable SIGNED BY: Marylou Francisco RDMS, RVT- [facility] ([facility]) October 25, 2022 12:44 PM documented in this encounter [facility] 10-18-2022 Miscellaneous Notes Form Faxed, Transmission ok CLOSED Form signed Thank you Type of letter/form/fax request: Certificate of Medical Necessity CGM Form received from: [facility] Placed on Provider (Jorden HOWELL) for completion Completed form needs to be faxed to [phone]. documented in this encounter [facility] 10-08-2022 Note [facility] 10-08-2022 History of Present illness Narrative Follow-up Visit [facility] October 08, 2022 CC: Lumbar spine pain, hyperreflexia, bladder dysfunction SUBJECTIVE: Patient returns today to review the results of her cervical and lumbar MRI. Continues to deal with significant pain in the bilateral lower limbs. Describes severe spasming in the bilateral lower limbs as well. Although radiculopathy was a possibility the presence of hyper reflexes as opposed to diminished reflexes suggestive of potential myelopathic process. For this reason cervical and lumbar MRIs were ordered. Since last visit: She continues to endorse bladder dysfunction including spastic bladder and frequencydenies fever, denies night pain, denies unintentional weight loss, denies clumsiness of hands or dropping things, clumsiness of feet, tripping or falling. Denies any constitutional or myelopathic symptomatology. 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 Will need LMWH or OAC prophylaxis for elective surgery. 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 Irritable bowel syndrome casued by Metformin Lateral epicondylitis of right elbow 04/07/2013 Mitral valve disorder Muscle mass 11/13/2011 Myofascial pain 01/04/2016 Pain in limb 08/29/2006 Painful orthopaedic hardware (HCC) 12/15/2013 PLANTAR Fasciitis 07/31/2005 Proteinuria Pure hypercholesterolemia Regional enteritis of small intestine with large intestine (HCC) Residual foreign body in soft tissue 01/11/2005 Snoring Sprain of ankle, unspecified site 11/01/2009 Thoracic or lumbosacral neuritis or radiculitis, unspecified 06/09/2009 Trigger thumb of left hand 11/04/2012 Type I (juvenile type) diabetes mellitus without mention of complication, uncontrolled 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 Vertigo Weakness 02/24/2016 PSH: PAST SURGICAL HISTORY Procedure Laterality Date DELIVERY ONLY , 11/12 and 10/15 , low cervical x3 EGD TRANSORAL BIOPSY SINGLE/MULTIPLE 08/03/2016 distal erosive gastritis, no retained food, no hiatal hernia ESOPHAGOGASTRODUODENOSCOPY TRANSORAL DIAGNOSTIC 02/01/2021 EXCISION GANGLION WRIST DORSAL/VOLAR PRIMARY Right 08/24/2014 Excison mass right wrist INCISE FINGER TENDON SHEATH Left 02/14/2022 Left index trigger finger release LIG/TRNSXJ FLP TUBE ABDL/VAG APPR UNI/BI 10/29/2003 Tubal ligation NEUROPLASTY &/TRANSPOSITION ULNAR NERVE ELBOW 12/21/2011 Ulnar nerve decompression left elbow NEUROPLASTY &/TRANSPOSITION ULNAR NERVE ELBOW 04/17/2012 Ulnar nerve decompression right elbow OPEN TREATMENT METATARSAL FRACTURE EACH 09/15/2012 ORIF left 5th Metatarsal PAST SURGICAL HISTORY OF 01/27/2009 Right wrist carpal tunnel surgery PAST SURGICAL HISTORY OF 03/17/2009 Left wrist carpal tunnel surgery PAST SURGICAL HISTORY OF 06/2011 left elbow cellulitis tendon surgery PAST SURGICAL HISTORY OF 12/19/2012 left trigger thumb release PAST SURGICAL HISTORY OF 01/22/2014 removal of hardware, foot. PAST SURGICAL HISTORY OF Left 11/30/2016 plantar fasciotomy w/ resection of infracalcaneal spur; Dr. Hand PAST SURGICAL HISTORY OF Right 11/14/2018 4.9lb lipoma removed left lower leg PAST SURGICAL HISTORY OF Right 06/17/2020 Arthroplasty-right 5th and 5th toes Dr. Hand DPM TNOT ELBOW LATERAL/MEDIAL DEBRIDE OPEN 05/15/2013 Right lateral epicondyle debridement TONSILLECTOMY PRIMARY/SECONDARY <AGE 13 Tonsillectomy WRIST SURGERY HX Right 06/2021 Social history: Social History Tobacco Use Smoking status: Former Packs/day: 0.25 Years: 5.00 Additional pack years: 0.00 Total pack years: 1.25 Types: Cigarettes Quit date: 04/13/2009 Years since quittin.4 Smokeless tobacco: Never Vaping Use Vaping Use: Never used Substance Use Topics Alcohol use: Yes Comment: 2 drinks per year Drug use: No Fam history: FAMILY HISTORY Problem Relation Age of Onset Diabetes Mother not in contact Diabetes Father Lipids Father Heart Father [place] & Heart surg Seizures Father r/t TBI Alzheimer's Disease Father other (Other) Father fell and fractured hip- also perf bowel in fall Breast Cancer Maternal Grandmother Heart Maternal Grandfather Diabetes Paternal Grandmother Anesthesia Problems No Family History Malig Hyperthermia No Family History Reviewed and updated with patient. ALLERGIES: Darvocet A500 [Propoxyphene N-Acetaminophen], Mirtazapine, Penicillins, Adhesive Tape-Silicones, Etodolac, Latex, Lipitor [Atorvastatin Calcium], Lovastatin, Mobic [Meloxicam], Morphine, Percocet [Oxycodone-Acetaminophen], Propoxyphene, Simvastatin, Tramadol, Vancomycin, and Vicodin [Hydrocodone-Acetaminophen] DATA REVIEW: Cervical and lumbar MRI results: IMPRESSION: Cervical spondylosis with mild cord compression at C5-6, ventral cord deformity at C3-4, C4-5, and C6-7. Normal cord signal. Multilevel moderate foraminal stenosis. Mild lumbar spondylosis. Cervical Anatomic Variant: None. Assume 7 cervical vertebrae with counting from the craniocervical junction. Anatomic Thoracic/Lumbar Variant: None. L4-5 is considered the level of the iliac crest and assume there are 5 lumbar-type vertebrae. OBJECTIVE: Vital Signs: Resp 12 Ht 152.4 cm (5') Wt 110.7 kg (244 lb) LMP 12/06/2015 BMI 47.65 kg/m DX: R26.89 Balance disorder (primary encounter diagnosis) R25.2 Spasticity N31.9 Bladder dysfunction M48.02 Spinal stenosis in cervical region PLAN: 1) I reviewed patient's cervical and lumbar MRI imaging with her as it pertains to her current symptoms. In the cervical spine there is evidence of cervical stenosis and cord compression potentially an explanation for her hyperreflexia and bilateral lower limb cramping and spasms. In light of MRI findings and patient's persistent lower limb cramping spasms and upper motor neuron findings we have scheduled patient for surgical evaluation. 2) We will also schedule patient for a thoracic MRI in light of hyperreflexia in the lower limbs but not in the upper limbs before surgical evaluation. Elver Tam DO, MPH Staff Physician [facility] This document has been created with the use of voice recognition technology. It may contain inaccuracies: misspellings, inaccurate syntax or word sense that escaped review. documented in this encounter [facility] 10-02-2022 Miscellaneous Notes Patient has been identified by name and date of : Yes Patient phones for refill(s): Requested Prescriptions Pending Prescriptions Disp Refills meclizine (ANTIVERT) 25 mg tab 45 tablet 3 Sig: Take 1 tablet by mouth three times daily as needed (vertigo). Date of last office visit in primary care: 07/19/2022 Please advise. Thank you. Mile Campuzano LPN documented in this encounter [facility] 09-26-2022 Note HNO ID: [id number] Author: Susan Lopez RT(R) Service: ? Author Type: Technologist Type: Progress Notes Filed: 09/26/2022 11:06 AM Note Text: Radiology Service Progress Note PATIENT NAME: Jacque Rodriguez DATE OF SERVICE: September 26, 2022 TIME: 10:30 AM PATIENT IDENTITY VERIFICATION COMPLETED USING TWO (2) IDENTIFIERS: Name and Date of confirmed by patient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 Continue range of motion and use. Follow-up on an as-needed basis. Ms. Jacque Rodriguez was advised as to contrast therapies and/or to take analgesics/anti-inflammatories as needed and all contraindications were reviewed. OBJECTIVE: Ms. Jacque Rodriguez is a pleasant 52 year old in no apparent distress. Gen:LMP 12/06/2015 nl development, obese, no deformities ENT: Normocephalic, normal hearing, moist mucosa CV: Pulses:Radial= 2+ and symmetric, capillary refill < 2 secs, no peripheral edema/varicosities Skin: no rash, bruising or lesions. Good turgor. Psych: cooperative and appropriate, alert and oriented x 3, good mood and affect. Musculoskeletal: Prior surgical incisions noted. Area of focal swelling consistent where she had her fasciotomy. A little bit of discoloration but normal appearance for the level of injury. Good range of motion of the wrist without any problems. Imaging: Deferred today Supporting Subjective Information Below: Past Surgical History: PAST SURGICAL HISTORY Procedure Laterality Date DELIVERY ONLY , 11/12 and 10/15 , low cervical x3 EGD TRANSORAL BIOPSY SINGLE/MULTIPLE 08/03/2016 distal erosive gastritis, no retained food, no hiatal hernia ESOPHAGOGASTRODUODENOSCOPY TRANSORAL DIAGNOSTIC 02/01/2021 EXCISION GANGLION WRIST DORSAL/VOLAR PRIMARY Right 08/24/2014 Excison mass right wrist INCISE FINGER TENDON SHEATH Left 02/14/2022 Left index trigger finger release LIG/TRNSXJ FLP TUBE ABDL/VAG APPR UNI/BI 10/29/2003 Tubal ligation NEUROPLASTY &/TRANSPOSITION ULNAR NERVE ELBOW 12/21/2011 Ulnar nerve decompression left elbow NEUROPLASTY &/TRANSPOSITION ULNAR NERVE ELBOW 04/17/2012 Ulnar nerve decompression right elbow OPEN TREATMENT METATARSAL FRACTURE EACH 09/15/2012 ORIF left 5th Metatarsal PAST SURGICAL HISTORY OF 01/27/2009 Right wrist carpal tunnel surgery PAST SURGICAL HISTORY OF 03/17/2009 Left wrist carpal tunnel surgery PAST SURGICAL HISTORY OF 06/2011 left elbow cellulitis tendon surgery PAST SURGICAL HISTORY OF 12/19/2012 left trigger thumb release PAST SURGICAL HISTORY OF 01/22/2014 removal of hardware, foot. PAST SURGICAL HISTORY OF Left 11/30/2016 plantar fasciotomy w/ resection of infracalcaneal spur; Dr. Hand PAST SURGICAL HISTORY OF Right 11/14/2018 4.9lb lipoma removed left lower leg PAST SURGICAL HISTORY OF Right 06/17/2020 Arthroplasty-right 5th and 5th toes Dr. Hand DPM TNOT ELBOW LATERAL/MEDIAL DEBRIDE OPEN 05/15/2013 Right lateral epicondyle debridement TONSILLECTOMY PRIMARY/SECONDARY <AGE 13 Tonsillectomy WRIST SURGERY HX Right 06/2021 Medications: Current Outpatient Medications Medication Sig gabapentin (NEURONTIN) 300 mg capsule Take 3 tablets by mouth twice daily (in the morning and midday), then take 4 tablets by mouth at bedtime. meclizine (ANTIVERT) 25 mg tab Take 1 tablet by mouth three times daily as needed (vertigo). rosuvastatin (CRESTOR) 20 mg tablet Take 1 tablet by mouth once daily. insulin regular human, CONCENTRATED 500 UNIT/ML, (HUMULIN R) 500 unit/mL soln USE 120 PUMP UNITS DAILY (EQUIVALENT OF 600 UNITS DAILY) DIRECTED VIA INSULIN PUMP albuterol (PROVENTIL) 2.5 mg /3 mL (0.083 %) nebulizer solution Use 3 mL via nebulizer every 4 hours as needed for wheezing/shortness of breath. Use over 5-15minutes. cholecalciferol, Vitamin D3, (VITAMIN D3) 1,250 mcg (50,000 unit) cap capsule Take 1 capsule by mouth one time a week. levETIRAcetam (KEPPRA) 500 mg tablet Take 1 tablet by mouth twice daily. lansoprazole (PREVACID) 30 mg capsule Take 1 capsule by mouth twice daily. triamcinolone acetonide (NASACORT AQ) 55 mcg nasal inhaler Use 2 Sprays in each nostril once daily. atenolol (TENORMIN) 50 mg tablet Take 1 tablet by mouth once daily. pantoprazole sodium (PROTONIX ORAL) Take by mouth. promethazine (PHENERGAN) 25 mg tablet Take 1 tablet by mouth every 6 hours as needed (for nausea). clotrimazole (LOTRIMIN AF, CLOTRIMAZOLE,) 1 % cream Apply to affected area twice daily. ibuprofen (MOTRIN) 800 mg tablet Take 1 tablet by mouth every 8 hours as needed for pain. loratadine-pseudoephedrine ER (ALLERGY RELIEF D12) 5-120 mg per tablet Take 1 tablet by mouth twice daily. albuterol HFA (PROVENTIL HFA, VENTOLIN HFA) 90 mcg/actuation inhaler Inhale 2 Puffs as instructed every 4 hours as needed for wheezing/shortness of breath. blood sugar diagnostic (CONTOUR NEXT TEST STRIPS) test strip Use as instructed to test glucose 4 times daily; E11.42, IDDM elderberry fruit (ELDERBERRY ORAL) Take 2 Doses by mouth once daily. Gummies linaclotide (LINZESS) 145 mcg capsule Take 1 capsule by mouth DAILY (6 AM). glucagon (BAQSIMI) 3 mg/actuation nasal spray Use 1 Homeland in the nose as needed for Low Blood Sugar. May repeat after 15 minutes using a new device if there is no response. glucagon (GLUCAGON EMERGENCY KIT, HUMAN,) 1 mg solr Inject (1)one mg for insulin shock. Blood-Glucose Sensor (DEXCOM G6 SENSOR) bird 300 Units. Humulin R unit(s)-500 every 3 days Blood-Glucose Meter monitoring kit Use to test glucose daily in case Chelsy not working. DX: E11.65, insulin dependent. Insulin Pump Cartridge crtg Inject subcutaneously. glucose (DEX4 GLUCOSE) 4 gram chewable tablet Take 4 tablets by mouth as needed for Low Blood Sugar. COMPOUNDED PRESCRIPTION Diabetic shoes one pair with inserts Dx Type 1 diabetes E10.65 dicyclomine (BENTYL) 20 mg tablet TAKE 1 TABLET BY MOUTH 3 TIMES A DAY NEEDED multivitamin tablet Take 1 tablet by mouth once daily. COMPOUNDED PRESCRIPTION Shower Grab Bars DX R29.6,R42 Lancets lancets Test blood sugar(s) 4-6 times daily. Dx: Type 2 DM - Uncontrolled E11.65 Insulin: Yes Urine Glucose-Ketones Test (KETO-DIASTIX) strp 1 Strip as needed. tenapanor (IBSRELA) 50 mg tablet Take 1 tablet (50 mg) by mouth twice daily. (Patient not taking: Reported on 06/25/2022) acyclovir (ZOVIRAX) 400 mg tablet Take 1 tablet by mouth three times daily. (Patient not taking: Reported on 06/25/2022) glucagon (GLUCAGEN HYPOKIT) 1 mg injection Inject 1 mg subcutaneously one time only for 1 dose. aprepitant (EMEND) 80 mg capsule Take 1 capsule by mouth once daily. (Patient not taking: Reported on 06/25/2022) granisetron HCl (KYTRIL) 1 mg tablet Take 1 tablet by mouth every 12 hours as needed. (Patient not taking: Reported on 06/25/2022) FLUoxetine (PROZAC) 20 mg capsule Take 1 capsule by mouth once daily. In the morning (Patient not taking: Reported on 06/25/2022) famotidine (PEPCID) 40 mg tablet TAKE 1 TABLET BY MOUTH EVERYDAY AT BEDTIME (Patient not taking: Reported on 06/25/2022) No current facility-administered medications for this visit. Allergies: Darvocet A500 [Propoxyphene N-Acetaminophen], Mirtazapine, Penicillins, Adhesive Tape-Silicones, Etodolac, Latex, Lipitor [Atorvastatin Calcium], Lovastatin, Mobic [Meloxicam], Morphine, Percocet [Oxycodone-Acetaminophen], Propoxyphene, Simvastatin, Tramadol, Vancomycin, and Vicodin [Hydrocodone-Acetaminophen] ROS: General (negative for fatigue, malaise, weight loss/gain) HEENT (negative for headache, earache, recent vision changes, sinus pain, sore throat) Respiratory (no recent shortness of breath, hemoptysis) CV (negative for chest tightness, palpitations) Musculoskeletal (see HPI) Psych (no depression, anxiety) Bennie Marrero MD documented in this encounter [facility] 05-14-2022 Note [facility] 04-24-2022 Miscellaneous Notes Patient has been identified by name and date of : Yes Patient phones for refill(s): Requested Prescriptions Pending Prescriptions Disp Refills meclizine (ANTIVERT) 25 mg tab 45 tablet 3 Sig: Take 1 tablet by mouth three times daily as needed (vertigo). Date of last office visit in primary care: 03/27/2022 Please advise. Thank you. Mile Campuzano LPN documented in this encounter [facility] 04-18-2022 Note [facility] 04-10-2022 Note [facility] 04-10-2022 History of Present illness Narrative This note was created using [employer]. Subjective Jacque Rodriguez is a 52 year old female. HPI Patient presents with cough and congestion over the past day. She did have a low-grade temp at 100. She is prone to bronchitis. She is a former smoker but quit in 2009. Has a history of diabetes. She does have an albuterol nebulizer but is out of the albuterol solution. No shortness of breath or chest pain. No home COVID test done. She denies vomiting or diarrhea. Her son has been ill for about 3 weeks as well. Review of Systems Constitutional: Positive for fatigue and fever. HENT: Positive for congestion, rhinorrhea and sore throat. Negative for ear pain. Respiratory: Positive for cough. Negative for shortness of breath and wheezing. Cardiovascular: Negative. Gastrointestinal: Negative. Genitourinary: Negative. Musculoskeletal: Negative. All other systems reviewed and are negative. 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 Will need LMWH or OAC prophylaxis for elective surgery. 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 Irritable bowel syndrome casued by Metformin Lateral epicondylitis of right elbow 04/07/2013 Mitral valve disorder Muscle mass 11/13/2011 Myofascial pain 01/04/2016 Pain in limb 08/29/2006 Painful orthopaedic hardware (HCC) 12/15/2013 PLANTAR Fasciitis 07/31/2005 Proteinuria Pure hypercholesterolemia Regional enteritis of small intestine with large intestine (HCC) Residual foreign body in soft tissue 01/11/2005 Snoring Sprain of ankle, unspecified site 11/01/2009 Thoracic or lumbosacral neuritis or radiculitis, unspecified 06/09/2009 Trigger thumb of left hand 11/04/2012 Type I (juvenile type) diabetes mellitus without mention of complication, uncontrolled 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 21 tablet 0 cholecalciferol, Vitamin D3, (VITAMIN D3) 1,250 mcg (50,000 unit) cap capsule Take 1 capsule by mouth one time a week. 12 capsule 3 levETIRAcetam (KEPPRA) 500 mg tablet Take 1 tablet by mouth twice daily. 60 tablet 5 ZOLMitriptan (ZOMIG) 5 mg tablet Take 1 tablet by mouth as needed for migraine headache (see administration instructions). 12 tablet 3 lansoprazole (PREVACID) 30 mg capsule Take 1 capsule by mouth twice daily. 180 capsule 3 triamcinolone acetonide (NASACORT AQ) 55 mcg nasal inhaler Use 2 Sprays in each nostril once daily. 16.9 mL 0 atenolol (TENORMIN) 50 mg tablet Take 1 tablet by mouth once daily. 90 tablet 3 pantoprazole sodium (PROTONIX ORAL) Take by mouth. meclizine (ANTIVERT) 25 mg tab Take 1 tablet by mouth three times daily as needed (vertigo). 45 tablet 3 promethazine (PHENERGAN) 25 mg tablet Take 1 tablet by mouth every 6 hours as needed (for nausea). 120 tablet 6 clotrimazole (LOTRIMIN AF, CLOTRIMAZOLE,) 1 % cream Apply to affected area twice daily. 14 g 2 ibuprofen (MOTRIN) 800 mg tablet Take 1 tablet by mouth every 8 hours as needed for pain. 60 tablet 1 gabapentin (NEURONTIN) 300 mg capsule Take 3 tablets by mouth twice daily (in the morning and midday), then take 4 tablets by mouth at bedtime. 300 capsule 1 loratadine-pseudoephedrine ER (ALLERGY RELIEF D12) 5-120 mg per tablet Take 1 tablet by mouth twice daily. 90 tablet 4 albuterol HFA (PROVENTIL HFA, VENTOLIN HFA) 90 mcg/actuation inhaler Inhale 2 Puffs as instructed every 4 hours as needed for wheezing/shortness of breath. 8 g 0 blood sugar diagnostic (CONTOUR NEXT TEST STRIPS) test strip Use as instructed to test glucose 4 times daily; E11.42, IDDM 400 Each 3 aprepitant (EMEND) 80 mg capsule Take 1 capsule by mouth once daily. 30 capsule 1 elderberry fruit (ELDERBERRY ORAL) Take 2 Doses by mouth once daily. Gummies granisetron HCl (KYTRIL) 1 mg tablet Take 1 tablet by mouth every 12 hours as needed. 60 tablet 5 FLUoxetine (PROZAC) 20 mg capsule Take 1 capsule by mouth once daily. In the morning 30 capsule 2 rosuvastatin (CRESTOR) 20 mg tablet Take 1 tablet by mouth once daily. 90 tablet 3 linaclotide (LINZESS) 145 mcg capsule Take 1 capsule by mouth DAILY (6 AM). 30 capsule 5 famotidine (PEPCID) 40 mg tablet TAKE 1 TABLET BY MOUTH EVERYDAY AT BEDTIME 30 tablet 6 glucagon (BAQSIMI) 3 mg/actuation nasal spray Use 1 Homeland in the nose as needed for Low Blood Sugar. May repeat after 15 minutes using a new device if there is no response. 2 Each 1 glucagon (GLUCAGON EMERGENCY KIT, HUMAN,) 1 mg solr Inject (1)one mg for insulin shock. 1 Each 1 Blood-Glucose Sensor (DEXCOM G6 SENSOR) bird 300 Units. Humulin R unit(s)-500 every 3 days Blood-Glucose Meter monitoring kit Use to test glucose daily in case Chelsy not working. DX: E11.65, insulin dependent. 1 Each 0 Insulin Pump Cartridge crtg Inject subcutaneously. glucose (DEX4 GLUCOSE) 4 gram chewable tablet Take 4 tablets by mouth as needed for Low Blood Sugar. 30 tablet 5 COMPOUNDED PRESCRIPTION Diabetic shoes one pair with inserts Dx Type 1 diabetes E10.65 1 Each 0 dicyclomine (BENTYL) 20 mg tablet TAKE 1 TABLET BY MOUTH 3 TIMES A DAY NEEDED 90 tablet 1 multivitamin tablet Take 1 tablet by mouth once daily. 30 tablet 11 COMPOUNDED PRESCRIPTION Shower Grab Bars DX R29.6,R42 2 Each 0 Lancets lancets Test blood sugar(s) 4-6 times daily. Dx: Type 2 DM - Uncontrolled E11.65 Insulin: Yes 100 Each 11 Urine Glucose-Ketones Test (KETO-DIASTIX) strp 1 Strip as needed. 10 Strip 3 albuterol (PROVENTIL) 2.5 mg /3 mL (0.083 %) nebulizer solution Use 3 mL via nebulizer every 4 hours as needed for wheezing/shortness of breath. Use over 5-15minutes. 75 mL 0 codeine-guaiFENesin (GUAIFENESIN AC) 10-100 mg/5 mL syrup Take 5 mL by mouth three times daily as needed for up to 5 days. 75 mL 0 glucagon (GLUCAGEN HYPOKIT) 1 mg injection Inject 1 mg subcutaneously one time only for 1 dose. 1 Each 3 No current facility-administered medications for this visit. PAST SURGICAL HISTORY Procedure Laterality Date DELIVERY ONLY , 11/12 and 10/15 , low cervical x3 EGD TRANSORAL BIOPSY SINGLE/MULTIPLE 08/03/2016 distal erosive gastritis, no retained food, no hiatal hernia ESOPHAGOGASTRODUODENOSCOPY TRANSORAL DIAGNOSTIC 02/01/2021 EXCISION GANGLION WRIST DORSAL/VOLAR PRIMARY Right 08/24/2014 Excison mass right wrist INCISE FINGER TENDON SHEATH Left 02/14/2022 Left index trigger finger release LIG/TRNSXJ FLP TUBE ABDL/VAG APPR UNI/BI 10/29/2003 Tubal ligation NEUROPLASTY &/TRANSPOSITION ULNAR NERVE ELBOW 12/21/2011 Ulnar nerve decompression left elbow NEUROPLASTY &/TRANSPOSITION ULNAR NERVE ELBOW 04/17/2012 Ulnar nerve decompression right elbow OPEN TREATMENT METATARSAL FRACTURE EACH 09/15/2012 ORIF left 5th Metatarsal PAST SURGICAL HISTORY OF 01/27/2009 Right wrist carpal tunnel surgery PAST SURGICAL HISTORY OF 03/17/2009 Left wrist carpal tunnel surgery PAST SURGICAL HISTORY OF 06/2011 left elbow cellulitis tendon surgery PAST SURGICAL HISTORY OF 12/19/2012 left trigger thumb release PAST SURGICAL HISTORY OF 01/22/2014 removal of hardware, foot. PAST SURGICAL HISTORY OF Left 11/30/2016 plantar fasciotomy w/ resection of infracalcaneal spur; Dr. Hand PAST SURGICAL HISTORY OF Right 11/14/2018 4.9lb lipoma removed left lower leg PAST SURGICAL HISTORY OF Right 06/17/2020 Arthroplasty-right 5th and 5th toes Dr. Hand DPM TNOT ELBOW LATERAL/MEDIAL DEBRIDE OPEN 05/15/2013 Right lateral epicondyle debridement TONSILLECTOMY PRIMARY/SECONDARY <AGE 13 Tonsillectomy WRIST SURGERY HX Right 06/2021 FAMILY HISTORY Problem Relation Age of Onset Diabetes Mother not in contact Diabetes Father Lipids Father Heart Father [place] & Heart surg Seizures Father r/t TBI Alzheimer's Disease Father other (Other) Father fell and fractured hip- also perf bowel in fall Breast Cancer Maternal Grandmother Heart Maternal Grandfather Diabetes Paternal Grandmother Anesthesia Problems No Family History Malig Hyperthermia No Family History Social History Tobacco Use Smoking status: Former Packs/day: 0.25 Years: 5.00 Pack years: 1.25 Types: Cigarettes Quit date: 04/13/2009 Years since quittin.0 Smokeless tobacco: Never Vaping Use Vaping Use: Never used Substance Use Topics Alcohol use: Yes Comment: 2 drinks per year Drug use: No Objective BP 122/80 Pulse 90 Temp 37.1 C (98.7 F) (Tympanic) Resp 18 Wt 108.7 kg (239 lb 9.6 oz) LMP 12/06/2015 SpO2 98% BMI 46.79 kg/m Physical Exam Vitals reviewed. Constitutional: Appearance: Normal appearance. HENT: Head: Normocephalic and atraumatic. Right Ear: Tympanic membrane, ear canal and external ear normal. Left Ear: Tympanic membrane, ear canal and external ear normal. Nose: Congestion present. Mouth/Throat: Mouth: Mucous membranes are moist. Pharynx: Oropharynx is clear. Cardiovascular: Rate and Rhythm: Normal rate and regular rhythm. Heart sounds: Normal heart sounds. Pulmonary: Effort: Pulmonary effort is normal. Breath sounds: Normal breath sounds. Comments: Harsh cough noted Musculoskeletal: Cervical back: Neck supple. Skin: General: Skin is warm and dry. Findings: No rash. Neurological: Mental Status: She is alert. Assessment and Plan ASSESSMENT/PLAN: 1. Viral URI - ICD9: 465.9, ICD10: J06.9 - Discussed viral etiology and rationale for treatment. - Symptomatic treatment with prn analgesia - Supportive care with fluids and rest - Follow up in 3-5 days if symptoms persist or sooner if worsening of symptoms - COVID WITH FLUA+B, ROUTINE - CODEINE 10 MG-GUAIFENESIN 100 MG/5 ML ORAL LIQUID Stella Mazariegos PA-C documented in this encounter [facility] 04-10-2022 Miscellaneous Notes Requester: Patient Last Visit in Endocrinology: Provider name: Unique Fowler DO , Date 10/12/2021 Next Scheduled Appt in Endo: 04/19/2022 Last Refill: 10/17/2021 Number of Refills given: 3 Requested Prescriptions Pending Prescriptions Disp Refills insulin regular human, CONCENTRATED 500 UNIT/ML, (HUMULIN R) 500 unit/mL soln [Pharmacy Med Name: HUMULIN R 500 UNIT/ML VIAL] 40 mL 3 Sig: USE 120 PUMP UNITS DAILY (EQUIVALENT OF 600 UNITS DAILY) DIRECTED VIA INSULIN PUMP Please review and advise. Nataliia Dominguez MA documented in this encounter [facility] 04-04-2022 Miscellaneous Notes Patient notified of results, verbalizes understanding of instructions.. Gita Rashid LPN Please inform patient that her PFTs and lung volumes shows IMPRESSION: Spirometry is normal. There was not a significant bronchodilator response. The TLC, RV and RV/TLC are normal No signs of COPD or asthma. Would need to see Building Service Worker for further testing if symptoms continue Yifan Blum DO documented in this encounter [facility] 04-02-2022 Note [facility] 04-02-2022 History of Present illness Narrative Episode Visit Count: 1 Therapist That Will Accept/Oversee The Plan Of Care: Flores Blum PT Start of Care Date: 04/02/22 Onset Date: 04/02/21 Plan of Care Certification Date: 04/02/22 Next Certification Due Date: 05/14/22 Patient Identified by Name and Date of : Yes REHABILITATION AND SPORTS THERAPY PHYSICAL THERAPY EVALUATION PLAN OF CARE: Assessment: Jacque Rodriguez presents with diagnosis of BPPV that interferes with stair negotiation . She presents with impairments in ADL's, balance, independence in exercise, overall function, and fall risk . PROMIS (Patient-Reported Outcomes Measurement Information System) scores were reviewed and physical function domain identified as a rehabilitation concern. Prognosis for therapy is Good due to: current objective clinical presentation . She will benefit from skilled therapy services to meet the goals established for this plan of care as noted below. Goals for Episode of Care: created on 04/02/22 through 05/14/22 Patient will have negative positional testing for BPPV. Patient/family member will be independent in performing self PRT. Patient will verbalize the understanding of the diagnosis BPPV, how to recognize symptoms and what to do if they return. Patient will return to prior level of function with all activities of daily living with trace reports of dizziness. Patient will deny dizziness with rolling right, rolling left, lying down, looking up, bending, and when on the move . Patient Goals: alleviate dizziness Planned Interventions, Frequency, and Duration: Current Frequency: 1x/week Duration: 6 weeks Total Number of Visits Planned: 6 Planned Treatment Interventions: Self-residential management ([id number]), Patient/Family/Caregiver Education, Canalith Repositioning Maneuvers ([id number]) PLAN FOR NEXT VISIT: Will further assess and continue with CRP as needed Patient demonstrates good understanding of plan of care and treatment. The above goals and plan of care were discussed and agreed upon by patient/family. SUBJECTIVE: Jacque Rodriguez is a 52 year old female seen today for Pt notes that she has dizziness with looking up or bending over or rolling over getting up etc. Lasts for about 30 seconds and then subsides. Patient Goals: alleviate dizziness Functional Limitations: stair negotiation Prior Level of Function: Independent without limitations Relevant History Past Relevant Medical Conditions: Anxiety, Diabetes Employment: Unemployed Hobbies / Interests: legos Home Environment Patient Lives With: Spouse, Family Home Type: Multi-Level Entry To Home: Stairs, Without Rail Number Of Stairs Into Home: 2 Number Of Stairs To Bed/Bath: 0 (does not need to go upstairs) Tub/Shower Type: combo Equipment Owned: (shower chair) Intake Information: Prescription present Previous Treatment: Self prescribed exercises (meclizine in the evening) Falls Interview: Two or more falls in the last year Vestibular Symptoms present for: months Dizziness: Yes Description: spinning (self) Rating of current symptoms: 10/10 (very brief) Frequency: Daily Duration: seconds Symptoms worsened by: looking up, rolling left, rolling right, bending, turning head quickly Symptoms improved by: being still Motion Sickness: As a child, Current Neck Symptoms: No Jaw Symptoms: No Ear Symptoms: Yes (previous ear infection) Description: (none currently) Rating of current symptoms: 0/10 Tinnitus: both ears equally Tinnitus Description: ringing Tinnitus Frequency: Constant Sleeping Position: Side lying left Sleep Affected by Symptoms: Not affected by dizziness Pain: Pain Pain Level: 8 Pain Location: Leg - Left Description: Shooting Post Treatment Pain Post Treatment Pain Level: No Change PROMIS Scales Higher is Better 05/16/2021 11/13/2021 02/06/2022 Phys Func - Score - - - Phys Func - Percentile - - - Social Roles - Score - - - Social Role - Percentile - - - GH Physical - Score 34.9 (Poor) 34.9 (Poor) 37.4 (Fair) GH Physical - Percentile 7 % 7 % 10 % GH Mental - Score 43.5 (Good) 41.1 (Good) 43.5 (Good) GH Mental - Percentile 26 % 19 % 26 % Self-Eff Symptom - Score - - - Self-Eff Symptom - Percentile - - - T-scores: mean of general population = 50. 5 points is clinically meaningfully difference Percentiles provide an indication of how the patient's score ranks in relation to the general population. Higher percentile rankings indicate better function/quality of life. 50th percentile is the average of the general population and indicates half of respondents had a worse score. Lower is Better 03/24/2019 01/20/2020 04/19/2020 Fatigue - Score 74 (severe) 64 (moderate) 64 (moderate) Fatigue - Percentile 1 % 8 % 8 % T-scores: mean of general population = 50. 5 points is clinically meaningfully difference Percentiles provide an indication of how the patient's score ranks in relation to the general population. Higher percentile rankings indicate better function/quality of life. 50th percentile is the average of the general population and indicates half of respondents had a worse score. OBJECTIVE MEASURES WITH LEVEL OF FUNCTION: Vision Vision Deficits: Wears corrective lenses Posture / Alignment Posture: Forward head Oculomotor Testing Fixation Present Ocular ROM: WNL Gaze Evoked Nystagmus: Not Present Oculomotor Testing Fixation Removed Spontaneous Nystagmus: No nystagmus Positional Testing Right [place]: Symptomatic (with nystagmus) Cervical Spine ROM Cervical ROM : Limitation AROM Cervical Flexion AROM: Normal, Increased dizziness Cervical Extension AROM: Normal, Increased dizziness Cervical Side-Bend Right AROM: Normal Cervical Side-Bend Left AROM: Normal Cervical Rotation Right AROM: Normal Cervical Rotation Left AROM: Normal Gait Gait Observation: independent, no assistive device Education: Education Learning Preferences: Demonstration, Explanation, Performance, Printed Materials Barriers: None Learning/educational needs: Home exercise program, Plan of Care Education Provided: Yes, see treatment interventions for education provided Education Provided To: Patient Education Mode/Type: Demonstration, Explanation/Discussion, Literature/Printed Materials Response to Education/Teach Back: States/Identifies, Return Demonstration TREATMENT: PT Treatment Interventions: Canalith Repositioning Evaluation Canalith Repositionin: 4 stage repositioning for right posterior canal Skilled Intervention: Professional judgment was used to determine specific treatment interventions based on assessment of symptoms. Physically assisted patient through each step of repositioning. Verbal and tactile cues provided to patient to assist in moving between each position of maneuver in correct sequence. Patient education including handouts provided regarding self repostitioning techniques to be performed at home. Instructed patient in post repositioning procedures Home Exercise Program Assigned: 1: keep head level remainder of day/ sleep on left side Billing * Evaluation Low Complexity: 1 Unit * Canalith Repositionin unit Total Treatment Time Minutes (timed/untimed): 40 Flores Blum PT documented in this encounter [facility] 04-02-2022 Note [facility] 04-02-2022 History of Present illness Narrative PULM FUNCTION SMARTBLOCK: Provider: Yifan Blum DO Assisting Tech: JOHN Golden Spirometry w/BD: 1 LV - Box: 1 documented in this encounter [facility] 03-27-2022 Note [facility] 03-27-2022 History of Present illness Narrative CC: Jacque Rodriguez is a 52 year old female who presents to the office for follow up HPI: Had covid Nov 09, 2021 and associated coughing so hard she vomited at that time. Since then, she continues to have intermittent vertigo symptoms, mostly with position changes such as looking up or down, tilting her head, turning too fast, sitting up too fast in bed. She does admit to headaches as well since having covid- not improved with maxalt and ibuprofen or tylenol. No fevers or chills or syncope. Does also have a chronic cough that is non productive and dry, comes and goes, worse in the evening especially when trying to lay down- present since having covid 4 months ago or longer Type 2 diabetes, continues to be managed by parliamentary counsel, using her insulin pump Mood, stable, has stressors with her grown sons but has support from her . Dyslipidemia, taking crestor medication as prescribed. 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 Will need LMWH or OAC prophylaxis for elective surgery. 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 Irritable bowel syndrome casued by Metformin Lateral epicondylitis of right elbow 04/07/2013 Mitral valve disorder Muscle mass 11/13/2011 Myofascial pain 01/04/2016 Pain in limb 08/29/2006 Painful orthopaedic hardware (HCC) 12/15/2013 PLANTAR Fasciitis 07/31/2005 Proteinuria Pure hypercholesterolemia Regional enteritis of small intestine with large intestine (HCC) Residual foreign body in soft tissue 01/11/2005 Snoring Sprain of ankle, unspecified site 11/01/2009 Thoracic or lumbosacral neuritis or radiculitis, unspecified 06/09/2009 Trigger thumb of left hand 11/04/2012 Type I (juvenile type) diabetes mellitus without mention of complication, uncontrolled 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 Vertigo Weakness 02/24/2016 PAST SURGICAL HISTORY Procedure Laterality Date DELIVERY ONLY , 11/12 and 10/15 , low cervical x3 EGD TRANSORAL BIOPSY SINGLE/MULTIPLE 08/03/2016 distal erosive gastritis, no retained food, no hiatal hernia ESOPHAGOGASTRODUODENOSCOPY TRANSORAL DIAGNOSTIC 02/01/2021 EXCISION GANGLION WRIST DORSAL/VOLAR PRIMARY Right 08/24/2014 Excison mass right wrist INCISE FINGER TENDON SHEATH Left 02/14/2022 Left index trigger finger release LIG/TRNSXJ FLP TUBE ABDL/VAG APPR UNI/BI 10/29/2003 Tubal ligation NEUROPLASTY &/TRANSPOSITION ULNAR NERVE ELBOW 12/21/2011 Ulnar nerve decompression left elbow NEUROPLASTY &/TRANSPOSITION ULNAR NERVE ELBOW 04/17/2012 Ulnar nerve decompression right elbow OPEN TREATMENT METATARSAL FRACTURE EACH 09/15/2012 ORIF left 5th Metatarsal PAST SURGICAL HISTORY OF 01/27/2009 Right wrist carpal tunnel surgery PAST SURGICAL HISTORY OF 03/17/2009 Left wrist carpal tunnel surgery PAST SURGICAL HISTORY OF 06/2011 left elbow cellulitis tendon surgery PAST SURGICAL HISTORY OF 12/19/2012 left trigger thumb release PAST SURGICAL HISTORY OF 01/22/2014 removal of hardware, foot. PAST SURGICAL HISTORY OF Left 11/30/2016 plantar fasciotomy w/ resection of infracalcaneal spur; Dr. Hand PAST SURGICAL HISTORY OF Right 11/14/2018 4.9lb lipoma removed left lower leg PAST SURGICAL HISTORY OF Right 06/17/2020 Arthroplasty-right 5th and 5th toes Dr. Hand DPM TNOT ELBOW LATERAL/MEDIAL DEBRIDE OPEN 05/15/2013 Right lateral epicondyle debridement TONSILLECTOMY PRIMARY/SECONDARY <AGE 13 Tonsillectomy WRIST SURGERY HX Right 06/2021 Social History: Social History Tobacco Use Smoking status: Former Packs/day: 0.25 Years: 5.00 Pack years: 1.25 Types: Cigarettes Quit date: 04/13/2009 Years since quittin.9 Smokeless tobacco: Never Vaping Use Vaping Use: Never used Substance Use Topics Alcohol use: Yes Comment: 2 drinks per year Drug use: No FAMILY HISTORY Problem Relation Age of Onset Diabetes Mother not in contact Diabetes Father Lipids Father Heart Father [place] & Heart surg Seizures Father r/t TBI Alzheimer's Disease Father other (Other) Father fell and fractured hip- also perf bowel in fall Breast Cancer Maternal Grandmother Heart Maternal Grandfather Diabetes Paternal Grandmother Anesthesia Problems No Family History Malig Hyperthermia No Family History Current Outpatient prescriptions: acyclovir (ZOVIRAX) 400 mg tablet Take 1 tablet by mouth three times daily. lansoprazole (PREVACID) 30 mg capsule Take 1 capsule by mouth twice daily. triamcinolone acetonide (NASACORT AQ) 55 mcg nasal inhaler Use 2 Sprays in each nostril once daily. atenolol (TENORMIN) 50 mg tablet Take 1 tablet by mouth once daily. pantoprazole sodium (PROTONIX ORAL) Take by mouth. meclizine (ANTIVERT) 25 mg tab Take 1 tablet by mouth three times daily as needed (vertigo). promethazine (PHENERGAN) 25 mg tablet Take 1 tablet by mouth every 6 hours as needed (for nausea). clotrimazole (LOTRIMIN AF, CLOTRIMAZOLE,) 1 % cream Apply to affected area twice daily. ibuprofen (MOTRIN) 800 mg tablet Take 1 tablet by mouth every 8 hours as needed for pain. gabapentin (NEURONTIN) 300 mg capsule Take 3 tablets by mouth twice daily (in the morning and midday), then take 4 tablets by mouth at bedtime. loratadine-pseudoephedrine ER (ALLERGY RELIEF D12) 5-120 mg per tablet Take 1 tablet by mouth twice daily. albuterol HFA (PROVENTIL HFA, VENTOLIN HFA) 90 mcg/actuation inhaler Inhale 2 Puffs as instructed every 4 hours as needed for wheezing/shortness of breath. insulin regular human, CONCENTRATED 500 UNIT/ML, (HUMULIN R) 500 unit/mL soln USE 120 PUMP UNITS DAILY (EQUIVALENT OF 600 UNITS DAILY) DIRECTED VIA INSULIN PUMP blood sugar diagnostic (CONTOUR NEXT TEST STRIPS) test strip Use as instructed to test glucose 4 times daily; E11.42, IDDM aprepitant (EMEND) 80 mg capsule Take 1 capsule by mouth once daily. elderberry fruit (ELDERBERRY ORAL) Take 2 Doses by mouth once daily. Gummies rosuvastatin (CRESTOR) 20 mg tablet Take 1 tablet by mouth once daily. linaclotide (LINZESS) 145 mcg capsule Take 1 capsule by mouth DAILY (6 AM). rizatriptan (MAXALT) 5 mg tablet TAKE 1 TABLET AT ONSET OF HEADACHE MAY REPEAT AFTER 2HRS DO NOT EXCEED 3 DOSES PER DAY famotidine (PEPCID) 40 mg tablet TAKE 1 TABLET BY MOUTH EVERYDAY AT BEDTIME glucagon (BAQSIMI) 3 mg/actuation nasal spray Use 1 [place] in the nose as needed for Low Blood Sugar. May repeat after 15 minutes using a new device if there is no response. Blood-Glucose Sensor (DEXCOM G6 SENSOR) bird 300 Units. Humulin R unit(s)-500 every 3 days Blood-Glucose Meter monitoring kit Use to test glucose daily in case Chelsy not working. DX: E11.65, insulin dependent. Insulin Pump Cartridge crtg Inject subcutaneously. COMPOUNDED PRESCRIPTION Diabetic shoes one pair with inserts Dx Type 1 diabetes E10.65 dicyclomine (BENTYL) 20 mg tablet TAKE 1 TABLET BY MOUTH 3 TIMES A DAY NEEDED multivitamin tablet Take 1 tablet by mouth once daily. COMPOUNDED PRESCRIPTION Shower Grab Bars DX R29.6,R42 Lancets lancets Test blood sugar(s) 4-6 times daily. Dx: Type 2 DM - Uncontrolled E11.65 Insulin: Yes Urine Glucose-Ketones Test (KETO-DIASTIX) strp 1 Strip as needed. cholecalciferol, Vitamin D3, (VITAMIN D3) 1,250 mcg (50,000 unit) cap capsule Take 1 capsule by mouth one time a week. levETIRAcetam (KEPPRA) 500 mg tablet Take 1 tablet by mouth twice daily. ZOLMitriptan (ZOMIG) 5 mg tablet Take 1 tablet by mouth as needed for migraine headache (see administration instructions). glucagon (GLUCAGEN HYPOKIT) 1 mg injection Inject 1 mg subcutaneously one time only for 1 dose. granisetron HCl (KYTRIL) 1 mg tablet Take 1 tablet by mouth every 12 hours as needed. (Patient not taking: No sig reported) FLUoxetine (PROZAC) 20 mg capsule Take 1 capsule by mouth once daily. In the morning (Patient not taking: No sig reported) glucagon (GLUCAGON EMERGENCY KIT, HUMAN,) 1 mg solr Inject (1)one mg for insulin shock. glucose (DEX4 GLUCOSE) 4 gram chewable tablet Take 4 tablets by mouth as needed for Low Blood Sugar. Allergies: ALLERGIES Allergen Reactions Darvocet A500 [Prop* GI Upset Mirtazapine Unknown Penicillins Anaphylaxis Throat swells shut Adhesive Tape-Silic* Rash, Itching, Other: See Comments Peels skin off Etodolac GI Upset Latex Rash Lipitor [Atorvastat* Diarrhea Lovastatin Myalgia Muscle cramping Mobic [Meloxicam] GI Upset Morphine Vomiting Percocet [Oxycodone* Itching Propoxyphene Unknown Simvastatin GI Upset Nausea and vomiting Tramadol GI Upset Vancomycin Hives Vicodin [Hydrocodon* Other: See Comments itching and nightmares ROS: See HPI PE: 03/27/22 1321 BP: 130/78 Pulse: 96 Resp: 16 SpO2: 99% Weight: 108.4 kg (239 lb) Gen: A&O, NAD, non-toxic appearing, Pleasant, cooperative HEENT: NT/AC, wearing glasses, PERRLA, EOMs intact b/l, nares clear and patent b/l, pharynx without erythema, exudate or lesions. MMM, Uvula midline. Neck: supple, No cervical LAD, no thyromegaly, no carotid bruits CV: RRR, normal S1 and S2, no murmurs, no gallops, no rubs, Pulses 2+ and symmetric in UE and LE b/l Lungs: normal respiratory effort, CTA b/l, no wheezing or rhonchi or rales Abd: soft, central obesity, NT, ND, +BS, no hepatosplenomegaly MS: FROM all 4 extremities Neuro: CN II-XII intact b/l Skin: warm, dry, intact, No rashes or lesions on exposed skin. No edema, normal pulses ASSESSMENT/PLAN: 1. Vertigo - ICD9: 780.4, ICD10: R42 (primary diagnosis) Concerns for inner ear etiology BPPV vs. Acoustic neuroma vs. Meniere's disease, need for vestibular PHYSICAL THERAPY and if symptoms aren't resolved then consider CT/MRI of inner ear and ENT referral as d/w her today 2. BPPV (benign paroxysmal positional vertigo), unspecified laterality - ICD9: 386.11, ICD10: H81.10 Concerns for inner ear etiology BPPV vs. Acoustic neuroma vs. Meniere's disease, need for vestibular PHYSICAL THERAPY and if symptoms aren't resolved then consider CT/MRI of inner ear and ENT referral as d/w her today - CONSULT TO PHYSICAL THERAPY 3. COVID-19 long hauler - ICD9: 139.8, ICD10: U09.9 Need for further testing with PFTs and lung volumes due to length of symptoms, suspect long hauler post covid 19 infection symptoms. - CONSULT TO PHYSICAL THERAPY - SPIROMETRY - BASELINE AND POST DILATOR - LUNG VOLUMES 4. Subacute cough - ICD9: 786.2, ICD10: R05.2 Need for further testing with PFTs and lung volumes due to length of symptoms, suspect long hauler post covid 19 infection symptoms. - SPIROMETRY - BASELINE AND POST DILATOR - LUNG VOLUMES 5. Tinnitus aurium, bilateral - ICD9: 388.31, ICD10: H93.13 Concerns for inner ear etiology BPPV vs. Acoustic neuroma vs. Meniere's disease, need for vestibular PHYSICAL THERAPY and if symptoms aren't resolved then consider CT/MRI of inner ear and ENT referral as d/w her today 6. Type 2 diabetes mellitus with diabetic polyneuropathy, with long-term current use of insulin (HCC) - ICD9: 250.60, 357.2, V58.67, ICD10: E11.42, Z79.4 F/u with Batch And Furnace Operator Yifan Blum DO To ER if develops chest pain, shortness of breath, or severe worsening of symptoms. Discussed risks, benefits, alternatives, and potential side effects of medications. Patient expressed understanding and agreed with the plan. Yifan Blum DO [address] [place] [address] documented in this encounter [facility] 03-14-2022 Miscellaneous Notes Patient phones requesting refills as follows: Requested Prescriptions Pending Prescriptions Disp Refills lansoprazole (PREVACID) 30 mg capsule 180 capsule 3 Sig: Take 1 capsule by mouth twice daily. ELISA-01/10/22 Labs-01/11/22 NOV-03/27/22 med filled 02/02/21 Please review and advise. Lana Rodriguez LPN documented in this encounter [facility] 03-08-2022 Miscellaneous Notes Pt needs an appointment for this. Please assist in scheduling. Thank you, Carmen Monaco APRN.[employer] documented in this encounter [facility] 03-02-2022 Miscellaneous Notes Last office visit: 01/10/22 F/u scheduled: 03/27/22 Mira Mcpherson Ma documented in this encounter [facility] 02-26-2022 Note [facility] 02-26-2022 Note [facility] 02-26-2022 History of Present illness Narrative Patient presents for suture removal after visit with Dr. Marrero. The wound is well healed without signs of infection. The sutures are removed. Bandaid applied. Instructions given for post op wound care. Bennie Marrero MD Department of Orthopaedics Orthopaedics [address] [facility] [address] Dept: [phone] Dept February 26, 2022 CHIEF COMPLAINT: Established Patient and Post Op of the Left Hand. HPI Patient here today for 1 week 5 days post op left index trigger finger release. She is still having some pain. ASSESSMENT: M65.322 Trigger index finger of left hand (primary encounter diagnosis) SUMMARY/PLAN: 12 days status post left index finger trigger release. She is doing fine. Mild and appropriate swelling and stiffness. We will get her stitches out today. Supporting Information Below: Medications: Current Outpatient Medications Medication Sig atenolol (TENORMIN) 50 mg tablet Take 1 tablet by mouth once daily. pantoprazole sodium (PROTONIX ORAL) Take by mouth. meclizine (ANTIVERT) 25 mg tab Take 1 tablet by mouth three times daily as needed (vertigo). ibuprofen (MOTRIN) 800 mg tablet Take 1 tablet by mouth every 8 hours as needed for pain. acyclovir (ZOVIRAX) 400 mg tablet Take 1 tablet by mouth three times daily. gabapentin (NEURONTIN) 300 mg capsule Take 3 tablets by mouth twice daily (in the morning and midday), then take 4 tablets by mouth at bedtime. triamcinolone acetonide (NASACORT AQ) 55 mcg nasal inhaler Use 2 Sprays in each nostril once daily. loratadine-pseudoephedrine ER (ALLERGY RELIEF D12) 5-120 mg per tablet Take 1 tablet by mouth twice daily. albuterol HFA (PROVENTIL HFA, VENTOLIN HFA) 90 mcg/actuation inhaler Inhale 2 Puffs as instructed every 4 hours as needed for wheezing/shortness of breath. insulin regular human, CONCENTRATED 500 UNIT/ML, (HUMULIN R) 500 unit/mL soln USE 120 PUMP UNITS DAILY (EQUIVALENT OF 600 UNITS DAILY) DIRECTED VIA INSULIN PUMP cholecalciferol, Vitamin D3, (VITAMIN D3) 1,250 mcg (50,000 unit) cap capsule Take 1 capsule by mouth one time a week. levETIRAcetam (KEPPRA) 500 mg tablet Take 1 tablet by mouth twice daily. elderberry fruit (ELDERBERRY ORAL) Take 2 Doses by mouth once daily. Gummies lansoprazole (PREVACID) 30 mg capsule Take 1 capsule by mouth twice daily. rosuvastatin (CRESTOR) 20 mg tablet Take 1 tablet by mouth once daily. linaclotide (LINZESS) 145 mcg capsule Take 1 capsule by mouth DAILY (6 AM). multivitamin tablet Take 1 tablet by mouth once daily. promethazine (PHENERGAN) 25 mg tablet Take 1 tablet by mouth every 6 hours as needed (for nausea). clotrimazole (LOTRIMIN AF, CLOTRIMAZOLE,) 1 % cream Apply to affected area twice daily. blood sugar diagnostic (CONTOUR NEXT TEST STRIPS) test strip Use as instructed to test glucose 4 times daily; E11.42, IDDM glucagon (GLUCAGEN HYPOKIT) 1 mg injection Inject 1 mg subcutaneously one time only for 1 dose. aprepitant (EMEND) 80 mg capsule Take 1 capsule by mouth once daily. granisetron HCl (KYTRIL) 1 mg tablet Take 1 tablet by mouth every 12 hours as needed. (Patient not taking: No sig reported) FLUoxetine (PROZAC) 20 mg capsule Take 1 capsule by mouth once daily. In the morning (Patient not taking: No sig reported) rizatriptan (MAXALT) 5 mg tablet TAKE 1 TABLET AT ONSET OF HEADACHE MAY REPEAT AFTER 2HRS DO NOT EXCEED 3 DOSES PER DAY famotidine (PEPCID) 40 mg tablet TAKE 1 TABLET BY MOUTH EVERYDAY AT BEDTIME glucagon (BAQSIMI) 3 mg/actuation nasal spray Use 1 Homeland in the nose as needed for Low Blood Sugar. May repeat after 15 minutes using a new device if there is no response. glucagon (GLUCAGON EMERGENCY KIT, HUMAN,) 1 mg solr Inject (1)one mg for insulin shock. Blood-Glucose Sensor (DEXCOM G6 SENSOR) bird 300 Units. Humulin R unit(s)-500 every 3 days Blood-Glucose Meter monitoring kit Use to test glucose daily in case Chelsy not working. DX: E11.65, insulin dependent. Insulin Pump Cartridge crtg Inject subcutaneously. glucose (DEX4 GLUCOSE) 4 gram chewable tablet Take 4 tablets by mouth as needed for Low Blood Sugar. COMPOUNDED PRESCRIPTION Diabetic shoes one pair with inserts Dx Type 1 diabetes E10.65 dicyclomine (BENTYL) 20 mg tablet TAKE 1 TABLET BY MOUTH 3 TIMES A DAY NEEDED COMPOUNDED PRESCRIPTION Shower Grab Bars DX R29.6,R42 Lancets lancets Test blood sugar(s) 4-6 times daily. Dx: Type 2 DM - Uncontrolled E11.65 Insulin: Yes Urine Glucose-Ketones Test (KETO-DIASTIX) strp 1 Strip as needed. No current facility-administered medications for this visit. Allergies: Darvocet A500 [Propoxyphene N-Acetaminophen], Mirtazapine, Penicillins, Adhesive Tape-Silicones, Etodolac, Latex, Lipitor [Atorvastatin Calcium], Lovastatin, Mobic [Meloxicam], Morphine, Percocet [Oxycodone-Acetaminophen], Propoxyphene, Simvastatin, Tramadol, Vancomycin, and Vicodin [Hydrocodone-Acetaminophen] Bennie Marrero MD documented in this encounter [facility] 02-13-2022 Miscellaneous Notes Patient phones requesting refills as follows: Requested Prescriptions Pending Prescriptions Disp Refills atenolol (TENORMIN) 50 mg tablet 90 tablet 3 Sig: Take 1 tablet by mouth once daily. ELISA-01/10/22 Labs-01/11/22 NOV-03/27/22 med filled 02/02/21 Please review and advise. Lana Rordiguez LPN documented in this encounter [facility] 02-08-2022 Note [facility] 02-08-2022 History of Present illness Narrative POPULATION HEALTH NAVIGATION OUTREACH Action/I 1st attempt: Spoke to patient and appointment with PCP scheduled. Declined mammogram. HCC GAPS J45.20 - Asthma, mild intermittent Care Gaps Follow-up appointment Breast Cancer screening Pt identified by name and : YES, via phone Outreach Outcome/Action Spoke to patient or caregiver: Patient scheduled Did you use a PCP flex slot to schedule this appointment? No Reason for Outreach HCC or suspected condition Payer: Payor: [facility] MEDICAID / Plan: [facility] MEDICAID / Product Type: Medicaid / Care Gap Reviewed:: Follow-up appointment Breast Cancer screening Reminder: Reminder note to check Health Maintenance for items below Health Maintenance items due: HPV TESTING Never done PAP TESTING due on 07/21/2009 MAMMOGRAM due on 2011 Navigation Signature: Rola Padilla February 08, 2022 2:00 PM documented in this encounter [facility] 02-07-2022 Miscellaneous Notes Patient scheduled for 02/15/22. New order with new diagnosis. Unable to do any more on my end. Thank you, Carmen Gamez APRN.DOUGHNUT ICER Testing was denied. Please place new order with more specific diagnoses. Va Aguilar Ma Has this been denied or just not approved yet? Please see if we can put in an appeal if it has been denied. Thank you, Carmen Gamez APRN.DOUGHNUT ICER Pt called in asking about US of heart. She states it had been denied and provider was going to try and get it re-approved. Please call and advise. documented in this encounter [facility] 02-07-2022 Instructions BETTINA Jesus - 02/07/2022 12:52 PM EST PATIENT PREOPERATIVE INSTRUCTIONS Bennie Marrero MD has scheduled you for your procedure at this surgery center: [facility]: [phone] -- [address] [address]. Please read below carefully for your personalized instructions. Dietary Restrictions: - Nothing to eat or drink after midnight except for a sip of water with approved medications. Medications: Unless instructed differently below, stay on all of your medications until your surgery. Approved medications to take the morning of surgery with a sip of water: none - Accucheck day of surgery. - Insulin pump: continue the same basal rate. If you start any new medications after today's visit, please contact the surgeon's office. Blood Thinning Medications: - Stop NSAIDS (Ibuprofen, Advil, Aleve, Motrin, Celebrex, Mobic, etc.) 7 days before surgery, as directed by your surgeon. - Stop Aspirin 7 days before surgery, as directed by your surgeon. - Stop Vitamin E, ALL multi-vitamins, herbals and dietary supplements 7 days before surgery. - You may take Tylenol (Acetaminophen) or any of your pain medications that do not contain aspirin or NSAIDS as needed. Important Reminders: - If you use CPAP/BIPAP, bring the machine with you to the surgery center. - Candy, mints, and tobacco products are NOT permitted the morning of surgery. - Hearing aids, dentures and glasses may be worn the morning of surgery. - NO jewelry, body piercings, makeup, hairpins or contacts are to be worn the day of surgery. If you develop symptoms such as a fever, cold, or flu, or have other changes to your health within TWO DAYS of scheduled surgery or the morning of surgery, please contact the surgery center above. Personal Belongings: -Please have photo ID and insurance cards. -If you do not have a copy of advance directives on file with us, please bring a copy with you on the day of surgery. - Leave ALL valuables and money at home or with family members. For Outpatient Procedures: - YOU MUST HAVE A RESPONSIBLE EGG PROCESSOR TAKE YOU HOME. A STRETCHING PRESS OPERATOR OR SHEET METAL DUCT INSTALLER HELPER CANNOT BE MADE A RESPONSIBLE EGG PROCESSOR. - We recommend that a responsible person stays with you overnight to take care of you. - You cannot stay in a hotel alone after outpatient surgery. You will not be permitted to have your surgery, if you do not have someone to take care of you. Arrival Time for Surgery: - The Surgery Center or hospital where you are having surgery will call the afternoon before surgery (or Saturday for Saturday surgery) with a scheduled arrival time. - If you have not heard by 4 pm, please contact the surgery center above. Please be aware that emergency situations arise, which may delay or change your surgical time. If this happens, we will notify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 taking: Reported on 02/01/2022) rizatriptan (MAXALT) 5 mg tablet TAKE 1 TABLET AT ONSET OF HEADACHE MAY REPEAT AFTER 2HRS DO NOT EXCEED 3 DOSES PER DAY COMPOUNDED PRESCRIPTION Diabetic shoes one pair with inserts Dx Type 1 diabetes E10.65 dicyclomine (BENTYL) 20 mg tablet TAKE 1 TABLET BY MOUTH 3 TIMES A DAY NEEDED COMPOUNDED PRESCRIPTION Shower Grab Bars DX R29.6,R42 Current Facility-Administered Medications Medication Dose Route Frequency perflutren lipid microspheres 1.3 mL in NaCl (PF) 0.9% 10 mL injection (DEFINITY) INTRAVENOUS DIRECTED PRN sodium chloride 0.9 % (flush) 10 mL (BD POSIFLUSH) 10 mL INTRAVENOUS DIRECTED PRN perflutren lipid microspheres 1.3 mL in NaCl (PF) 0.9% 10 mL injection (DEFINITY) INTRAVENOUS DIRECTED PRN sodium chloride 0.9 % (flush) 10 mL (BD POSIFLUSH) 10 mL INTRAVENOUS DIRECTED PRN Allergies: Darvocet A500 [Propoxyphene N-Acetaminophen], Mirtazapine, Penicillins, Adhesive Tape-Silicones, Etodolac, Latex, Lipitor [Atorvastatin Calcium], Lovastatin, Mobic [Meloxicam], Morphine, Percocet [Oxycodone-Acetaminophen], Propoxyphene, Simvastatin, Tramadol, Vancomycin, and Vicodin [Hydrocodone-Acetaminophen] ROS: General (negative for fatigue, malaise, weight loss/gain) HEENT (negative for headache, earache, recent vision changes, sinus pain, sore throat) Respiratory (no recent shortness of breath, hemoptysis) CV (negative for chest tightness, palpitations) Musculoskeletal (see HPI) Psych (no depression, anxiety) Bennie Marrero MD documented in this encounter [facility] 01-26-2022 Miscellaneous Notes Pt called and is notified of providers results and instructions. Pt voices understanding. Nancie Archer RN [employer] message sent to pt notifying her of normal results below from Provider. If questions to contact the office. Natalia Benitez Ma Please call patient and let her know that US of carotid arteries looks great!! Little to no stenosis at all on either side. No concerns at all. Thank you, Carmen Gamez APRN.DANTE documented in this encounter [facility] 01-26-2022 Miscellaneous Notes Pt called and is notified of providers results and instructions. Pt voices understanding. Nancie Archer RN documented in this encounter [facility] 01-22-2022 Miscellaneous Notes Noted. Thank you, Carmen Gamez APRN.[employer] Patient calls to let provider know that ECHO was cancelled at this time until insurance approves payment. Patient reports that she continues to have concerns for myocarditis d/t history of Mitral Valve Prolapse. She reports that her dizziness is still the same as at her appointment on 01/10/2022. Dizziness occurs with change of position but reports that it lasts 30-60 seconds then subsides. Meclizine ineffective. Continues to deny CP, SOB, or palpitation. Melia Gage RN documented in this encounter [facility] 01-12-2022 Miscellaneous Notes Spoke with patient and relayed message. Patient verbalized understanding. MRI did not show a meniscus tear. She has some chondral thinning (early arthritis) under her knee cap. Nothing is surgical. Would recommend she participate in 6 weeks of formal physical therapy and continue to take oral NSAIDs. If she is no better after 6 weeks of PT recommend she follow up in the office with me. Chet Malik PA-C Patient called in looking for MRI results and who she should see if she needs surgery. Please advise. Patient can be reached at [phone]. documented in this encounter [facility] 01-11-2022 Note HNO ID: [id number] Author: AVERY Reagan) Service: ? Author Type: Technologist Type: Progress Notes Filed: 01/11/2022 11:04 AM Note Text: Radiology Service Progress Note PATIENT NAME: Jacque Rodriguez DATE OF SERVICE: January 11, 2022 TIME: 11:03 AM PATIENT IDENTITY VERIFICATION COMPLETED USING TWO (2) IDENTIFIERS: Name and Date of confirmed by patient verbally. FALL SCREENING: Has the patient had 2 falls in the last year or 1 fall with injury or currently using an Ambulatory Assistive Device (Walker, Cane, Wheelchair, Crutches, etc.)? No PATIENT GENDER DATA: Female. status: : No status: NO. PATIENT RELEVANT IMPLANT DATA REVIEWED: Yes RADIOLOGY DEPARTMENT: MR; Exam(s) Completed: Lower MSK: Knee, left PERIPHERAL IV DATA: Not applicable SIGNED BY: Marylou Francisco RDMS, RVT January 11, 2022 11:03 AM [facility] 01-11-2022 History of Present illness Narrative Radiology Service Progress Note PATIENT NAME: Jacque Rodriguez DATE OF SERVICE: January 11, 2022 TIME: 11:03 AM PATIENT IDENTITY VERIFICATION COMPLETED USING TWO (2) IDENTIFIERS: Name and Date of confirmed by patient verbally. FALL SCREENING: Has the patient had 2 falls in the last year or 1 fall with injury or currently using an Ambulatory Assistive Device (Walker, Cane, Wheelchair, Crutches, etc.)? No PATIENT GENDER DATA: Female. status: : No status: NO. PATIENT RELEVANT IMPLANT DATA REVIEWED: Yes RADIOLOGY DEPARTMENT: MR; Exam(s) Completed: Lower MSK: Knee, left PERIPHERAL IV DATA: Not applicable SIGNED BY: Marylou Francisco RDMS, RVT January 11, 2022 11:03 AM documented in this encounter [facility] 01-10-2022 Usha Gamez APRN.CNP - 01/10/2022 12:58 PM EST Get blood work today. EKG in office. Orthostatic vital signs in office. Schedule ECHO and US of carotid arteries. Continue meclizine as needed and Nasacort routinely. documented in this encounter [facility] 01-10-2022 History of Present illness Narrative Chief Complaint Patient presents with: Vertigo HPI Jacque Rodriguez is a 51 year old female who presents here today for Above Complaints. Jacque Zhu is an established patient of Dr. Blum, DO and myself. Concerns today.. Vertigo/dizziness --- Has meclizine prescribed as needed -- no relief with this medication as she normally does. Hx of chronic vertigo but patient reports this to be different. Denies room-spinning sensation but more of a dizziness, lightheaded, and near syncope feeling. No LOC. Dizziness with changing position, lasting a few minutes at a time then resolves. Pt reports this dizziness intermittently since COVID+ at the end of October. Hx of mitral valve prolapse -- has had no complications with this. Asymptotic. Denies any CP, SOB, or palpitations. Saw ENT about 3-4 weeks ago following ear infection complications. Ear infection resolved and was told by ENT that everything looks normal. Pt reports symptoms of ear infection resolved. NO ear pain. No congestion but does report allergies and sneezing frequently recently. No other concerns or complaints. Past medical history, appointments, medications, allergies reviewed. 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 Will need LMWH or OAC prophylaxis for elective surgery. 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 Irritable bowel syndrome casued by Metformin Lateral epicondylitis of right elbow 04/07/2013 Mitral valve disorder Muscle mass 11/13/2011 Myofascial pain 01/04/2016 Pain in limb 08/29/2006 Painful orthopaedic hardware (HCC) 12/15/2013 PLANTAR Fasciitis 07/31/2005 Proteinuria Pure hypercholesterolemia Regional enteritis of small intestine with large intestine (HCC) Residual foreign body in soft tissue 01/11/2005 Snoring Sprain of ankle, unspecified site 11/01/2009 Thoracic or lumbosacral neuritis or radiculitis, unspecified 06/09/2009 Trigger thumb of left hand 11/04/2012 Type I (juvenile type) diabetes mellitus without mention of complication, uncontrolled 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 Vertigo Weakness 02/24/2016 Previous Surgical History PAST SURGICAL HISTORY Procedure Laterality Date DELIVERY ONLY , 11/12 and 10/15 , low cervical x3 EGD TRANSORAL BIOPSY SINGLE/MULTIPLE 08/03/2016 distal erosive gastritis, no retained food, no hiatal hernia ESOPHAGOGASTRODUODENOSCOPY TRANSORAL DIAGNOSTIC 02/01/2021 EXCISION GANGLION WRIST DORSAL/VOLAR PRIMARY Right 08/24/2014 Excison mass right wrist LIG/TRNSXJ FLP TUBE ABDL/VAG APPR UNI/BI 10/29/2003 Tubal ligation NEUROPLASTY &/TRANSPOSITION ULNAR NERVE ELBOW 12/21/2011 Ulnar nerve decompression left elbow NEUROPLASTY &/TRANSPOSITION ULNAR NERVE ELBOW 04/17/2012 Ulnar nerve decompression right elbow OPEN TREATMENT METATARSAL FRACTURE EACH 09/15/2012 ORIF left 5th Metatarsal PAST SURGICAL HISTORY OF 01/27/2009 Right wrist carpal tunnel surgery PAST SURGICAL HISTORY OF 03/17/2009 Left wrist carpal tunnel surgery PAST SURGICAL HISTORY OF 06/2011 left elbow cellulitis tendon surgery PAST SURGICAL HISTORY OF 12/19/2012 left trigger thumb release PAST SURGICAL HISTORY OF 01/22/2014 removal of hardware, foot. PAST SURGICAL HISTORY OF Left 11/30/2016 plantar fasciotomy w/ resection of infracalcaneal spur; Dr. Hand PAST SURGICAL HISTORY OF Right 11/14/2018 4.9lb lipoma removed left lower leg PAST SURGICAL HISTORY OF Right 06/17/2020 Arthroplasty-right 5th and 5th toes Dr. Hand DPM TNOT ELBOW LATERAL/MEDIAL DEBRIDE OPEN 05/15/2013 Right lateral epicondyle debridement TONSILLECTOMY PRIMARY/SECONDARY <AGE 13 Tonsillectomy Family History FAMILY HISTORY Problem Relation Age of Onset Diabetes Father Lipids Father Heart Father [place] & Heart surg Seizures Father r/t TBI Alzheimer's Disease Father other (Other) Father fell and fractured hip- also perf bowel in fall Diabetes Mother not in contact Heart Maternal Grandfather Breast Cancer Maternal Grandmother Diabetes Paternal Grandmother Anesthesia Problems No Family History Patient Allergies ALLERGIES Allergen Reactions Darvocet A500 [Prop* GI Upset Mirtazapine Unknown Penicillins Anaphylaxis Throat swells shut Adhesive Tape-Silic* Rash, Itching, Other: See Comments Peels skin off Etodolac GI Upset Latex Rash Lipitor [Atorvastat* Diarrhea Lovastatin Myalgia Muscle cramping Mobic [Meloxicam] GI Upset Morphine Vomiting Percocet [Oxycodone* Itching Propoxyphene Unknown Simvastatin GI Upset Nausea and vomiting Tramadol GI Upset Vancomycin Hives Vicodin [Hydrocodon* Other: See Comments itching and nightmares Current Medications Current Outpatient Medications on File Prior to Visit Medication Sig meclizine (ANTIVERT) 25 mg tab Take 1 tablet by mouth three times daily as needed (vertigo). promethazine (PHENERGAN) 25 mg tablet Take 1 tablet by mouth every 6 hours as needed (for nausea). clotrimazole (LOTRIMIN AF, CLOTRIMAZOLE,) 1 % cream Apply to affected area twice daily. ibuprofen (MOTRIN) 800 mg tablet Take 1 tablet by mouth every 8 hours as needed for pain. psewbrxlfpHOBSM-zdicmr-daxvnfxof (BMX 1:1:1) 1:1:1 liqd Mix in equal amounts - 1 T every 2hrs as needed for mouth pain, Swish/swallow or expectorate. (8oz) acyclovir (ZOVIRAX) 400 mg tablet Take 1 tablet by mouth three times daily. gabapentin (NEURONTIN) 300 mg capsule Take 3 tablets by mouth twice daily (in the morning and midday), then take 4 tablets by mouth at bedtime. triamcinolone acetonide (NASACORT AQ) 55 mcg nasal inhaler Use 2 Sprays in each nostril once daily. loratadine-pseudoephedrine ER (ALLERGY RELIEF D12) 5-120 mg per tablet Take 1 tablet by mouth twice daily. albuterol HFA (PROVENTIL HFA, VENTOLIN HFA) 90 mcg/actuation inhaler Inhale 2 Puffs as instructed every 4 hours as needed for wheezing/shortness of breath. mometasone-formoterol (DULERA) 100-5 mcg/actuation inhaler Inhale 2 Puffs as instructed twice daily. (Patient not taking: No sig reported) insulin regular human, CONCENTRATED 500 UNIT/ML, (HUMULIN R) 500 unit/mL soln USE 120 PUMP UNITS DAILY (EQUIVALENT OF 600 UNITS DAILY) DIRECTED VIA INSULIN PUMP cholecalciferol, Vitamin D3, (VITAMIN D3) 1,250 mcg (50,000 unit) cap capsule Take 1 capsule by mouth one time a week. blood sugar diagnostic (CONTOUR NEXT TEST STRIPS) test strip Use as instructed to test glucose 4 times daily; E11.42, IDDM levETIRAcetam (KEPPRA) 500 mg tablet Take 1 tablet by mouth twice daily. glucagon (GLUCAGEN HYPOKIT) 1 mg injection Inject 1 mg subcutaneously one time only for 1 dose. cyclobenzaprine (FLEXERIL) 10 mg tablet Take 1 tablet by mouth three times daily as needed for muscle spasm or pain. (Patient not taking: No sig reported) aprepitant (EMEND) 80 mg capsule Take 1 capsule by mouth once daily. elderberry fruit (ELDERBERRY ORAL) Take 2 Doses by mouth once daily. Gummies granisetron HCl (KYTRIL) 1 mg tablet Take 1 tablet by mouth every 12 hours as needed. (Patient not taking: No sig reported) FLUoxetine (PROZAC) 20 mg capsule Take 1 capsule by mouth once daily. In the morning (Patient not taking: No sig reported) lansoprazole (PREVACID) 30 mg capsule Take 1 capsule by mouth twice daily. atenolol (TENORMIN) 50 mg tablet Take 1 tablet by mouth once daily. rosuvastatin (CRESTOR) 20 mg tablet Take 1 tablet by mouth once daily. linaclotide (LINZESS) 145 mcg capsule Take 1 capsule by mouth DAILY (6 AM). rizatriptan (MAXALT) 5 mg tablet TAKE 1 TABLET AT ONSET OF HEADACHE MAY REPEAT AFTER 2HRS DO NOT EXCEED 3 DOSES PER DAY famotidine (PEPCID) 40 mg tablet TAKE 1 TABLET BY MOUTH EVERYDAY AT BEDTIME glucagon (BAQSIMI) 3 mg/actuation nasal spray Use 1 Homeland in the nose as needed for Low Blood Sugar. May repeat after 15 minutes using a new device if there is no response. glucagon (GLUCAGON EMERGENCY KIT, HUMAN,) 1 mg solr Inject (1)one mg for insulin shock. Blood-Glucose Sensor (DEXCOM G6 SENSOR) bird 300 Units. Humulin R unit(s)-500 every 3 days Blood-Glucose Meter monitoring kit Use to test glucose daily in case Chelsy not working. DX: E11.65, insulin dependent. Insulin Pump Cartridge crtg Inject subcutaneously. glucose (DEX4 GLUCOSE) 4 gram chewable tablet Take 4 tablets by mouth as needed for Low Blood Sugar. COMPOUNDED PRESCRIPTION Diabetic shoes one pair with inserts Dx Type 1 diabetes E10.65 dicyclomine (BENTYL) 20 mg tablet TAKE 1 TABLET BY MOUTH 3 TIMES A DAY NEEDED multivitamin tablet Take 1 tablet by mouth once daily. COMPOUNDED PRESCRIPTION Shower Grab Bars DX R29.6,R42 Lancets lancets Test blood sugar(s) 4-6 times daily. Dx: Type 2 DM - Uncontrolled E11.65 Insulin: Yes Urine Glucose-Ketones Test (KETO-DIASTIX) strp 1 Strip as needed. No current facility-administered medications on file prior to visit. Social History Social History Tobacco Use Smoking status: Former Packs/day: 0.25 Years: 5.00 Pack years: 1.25 Types: Cigarettes Quit date: 04/13/2009 Years since quittin.7 Smokeless tobacco: Never Substance Use Topics Alcohol use: Yes Comment: 2 drinks per year Drug use: No REVIEW OF SYSTEMS: as above Reviewed relevant PMHx, PSHx, Social Hx, current medications and allergies. Review of Symptoms REVIEW OF SYSTEMS See HPI. EXAM: BP 112/66 (BP Site: Left Arm, BP Position: Sitting, BP Cuff Size: Large Adult) Pulse 64 Resp 16 Wt 109 kg (240 lb 6.4 oz) LMP 12/06/2015 BMI 46.18 kg/m General Appearance: Well appearing, alert, in no acute distress, well-hydrated, well nourished.. Skin: Skin color, texture, turgor normal, no suspicious rashes or lesions. Head: Normocephalic, no masses, lesions, tenderness or abnormalities. Ears: External ears normal, canals clear. Nose/Sinuses: Nares normal, septum midline, mucosa normal, no drainage or sinus tenderness. Oropharynx: Lips, mucosa, and tongue normal, teeth and gums normal, oropharynx normal. Neck: Supple, no adenopathy; thyroid symmetric, normal size, no bruits. Back:no pain to palpation of vertebrae, good flexion and extension, good range of motion, no muscle tenderness, reflexes are 2+ and symmetric, motor and sensory appear to be normal, negative SLR test, no evidence of scoliosis Lungs: Lungs clear to auscultation. No wheezing, rhonchi, rales.. Heart: RRR without murmur, gallop, or rubs. No ectopy. Peripheral Pulses: Normal. Neurologic: Gait normal. Reflexes normal and symmetric. Sensation grossly intact.. Health Maintenance List HPV TESTING Never done PAP TESTING due on 07/21/2009 MAMMOGRAM due on 2011 SPIROMETRY due on 07/31/2022 COLORECTAL CANCER SCREENING due on 07/31/2022 PNEUMOCOCCAL(2 - PCV) due on 07/31/2022 INFLUENZA(1) due on 08/10/2022 SHINGRIX VACCINE(2 of 2) due on 01/03/2023 HBA1C due on 04/11/2022 LDL CHOLESTEROL due on 05/16/2022 DILATED RETINAL EXAM due on 07/12/2022 DIABETIC FOOT EXAM due on 07/31/2022 BP CONTROLLED (<130/80) due on 07/31/2022 ANNUAL PCP TEAM CHRONIC DISEASE VISIT due on 01/03/2023 DTAP,TDAP,TD(2 - Td or Tdap) due on 11/13/2025 HEPATITIS C SCREENING Completed HIV SCREENING Completed COVID-19 VACCINE Completed URINE ALBUMIN:CREATININE RATIO Discontinued ASSESSMENT/PLAN: 1. Dizziness - ICD9: 780.4, ICD10: R42 Abnormal and different from chronic vertigo. EKG normal -- NSR rate of 81. Orthostatic vital signs are normal with no change from lying to standing. Schedule ECHO and US of carotid arteries. Blood work as below. Pt agreeable to plan. - ECG COMPLETE - ECHO - PERFLUTREN LIPID MICROSPHERES 1.1 MG/ML INJECTION IN NS 10 ML - SODIUM CHLORIDE 0.9 % (FLUSH) INJECTION SYRINGE - US CAROTID ARTERIES [facility] - COMP METABOLIC PANEL - CBC + DIFF - LIPID PANEL BASIC - HGB A1C - ECG COMPLETE RTO in 3 months, sooner if needed. Prescription instructions reviewed with patient as applicable. Potential red flag symptoms discussed with the patient. Reviewed appropriate action plan to take if red flag symptoms occur. Patient agreeable to treatment plan. Carmen Gamez APRN.DANTE [address] [place] [address] documented in this encounter [facility] 12-21-2021 History of Present illness Narrative Chief Complaint Patient presents with: Cough: Covid + x 1 month ago HPI Jacque Rodriguez is a 51 year old female who presents here today for Above Complaints. Today: Cough since COVID infection a month ago. Mostly dry, occasionally small amount of white mucous production. No congestion or drainage. Has tried Mucinex, Tessalon Perles. Past medical history, appointments, medications, allergies reviewed. 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 Will need LMWH or OAC prophylaxis for elective surgery. 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 Irritable bowel syndrome casued by Metformin Lateral epicondylitis of right elbow 04/07/2013 Mitral valve disorder Muscle mass 11/13/2011 Myofascial pain 01/04/2016 Pain in limb 08/29/2006 Painful orthopaedic hardware (HCC) 12/15/2013 PLANTAR Fasciitis 07/31/2005 Proteinuria Pure hypercholesterolemia Regional enteritis of small intestine with large intestine (HCC) Residual foreign body in soft tissue 01/11/2005 Snoring Sprain of ankle, unspecified site 11/01/2009 Thoracic or lumbosacral neuritis or radiculitis, unspecified 06/09/2009 Trigger thumb of left hand 11/04/2012 Type I (juvenile type) diabetes mellitus without mention of complication, uncontrolled 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 Vertigo Weakness 02/24/2016 Previous Surgical History PAST SURGICAL HISTORY Procedure Laterality Date DELIVERY ONLY , 11/12 and 10/15 , low cervical x3 EGD TRANSORAL BIOPSY SINGLE/MULTIPLE 08/03/2016 distal erosive gastritis, no retained food, no hiatal hernia ESOPHAGOGASTRODUODENOSCOPY TRANSORAL DIAGNOSTIC 02/01/2021 EXCISION GANGLION WRIST DORSAL/VOLAR PRIMARY Right 08/24/2014 Excison mass right wrist LIG/TRNSXJ FLP TUBE ABDL/VAG APPR UNI/BI 10/29/2003 Tubal ligation NEUROPLASTY &/TRANSPOSITION ULNAR NERVE ELBOW 12/21/2011 Ulnar nerve decompression left elbow NEUROPLASTY &/TRANSPOSITION ULNAR NERVE ELBOW 04/17/2012 Ulnar nerve decompression right elbow OPEN TREATMENT METATARSAL FRACTURE EACH 09/15/2012 ORIF left 5th Metatarsal PAST SURGICAL HISTORY OF 01/27/2009 Right wrist carpal tunnel surgery PAST SURGICAL HISTORY OF 03/17/2009 Left wrist carpal tunnel surgery PAST SURGICAL HISTORY OF 06/2011 left elbow cellulitis tendon surgery PAST SURGICAL HISTORY OF 12/19/2012 left trigger thumb release PAST SURGICAL HISTORY OF 01/22/2014 removal of hardware, foot. PAST SURGICAL HISTORY OF Left 11/30/2016 plantar fasciotomy w/ resection of infracalcaneal spur; Dr. Hand PAST SURGICAL HISTORY OF Right 11/14/2018 4.9lb lipoma removed left lower leg PAST SURGICAL HISTORY OF Right 06/17/2020 Arthroplasty-right 5th and 5th toes Dr. Hand DPM TNOT ELBOW LATERAL/MEDIAL DEBRIDE OPEN 05/15/2013 Right lateral epicondyle debridement TONSILLECTOMY PRIMARY/SECONDARY <AGE 12 Tonsillectomy Family History FAMILY HISTORY Problem Relation Age of Onset Diabetes Father Lipids Father Heart Father [place] & Heart surg Seizures Father r/t TBI Alzheimer's Disease Father other (Other) Father fell and fractured hip- also perf bowel in fall Diabetes Mother not in contact Heart Maternal Grandfather Breast Cancer Maternal Grandmother Diabetes Paternal Grandmother Anesthesia Problems No Family History Patient Allergies ALLERGIES Allergen Reactions Darvocet A500 [Prop* GI Upset Mirtazapine Unknown Penicillins Anaphylaxis Throat swells shut Adhesive Tape-Silic* Rash, Itching, Other: See Comments Peels skin off Etodolac GI Upset Latex Rash Lipitor [Atorvastat* Diarrhea Lovastatin Myalgia Muscle cramping Mobic [Meloxicam] GI Upset Morphine Vomiting Percocet [Oxycodone* Itching Propoxyphene Unknown Simvastatin GI Upset Nausea and vomiting Tramadol GI Upset Vancomycin Hives Vicodin [Hydrocodon* Other: See Comments itching and nightmares Current Medications Current Outpatient Medications on File Prior to Visit Medication Sig ibuprofen (MOTRIN) 800 mg tablet Take 1 tablet by mouth every 8 hours as needed for pain. benzonatate (TESSALON PERLES) 100 mg capsule Take 1 capsule by mouth three times daily as needed for cough. [id number]-dgoroy-xsqmtasqu (BMX 1:1:1) 1:1:1 liqd Mix in equal amounts - 1 T every 2hrs as needed for mouth pain, Swish/swallow or expectorate. (8oz) acyclovir (ZOVIRAX) 400 mg tablet Take 1 tablet by mouth three times daily. gabapentin (NEURONTIN) 300 mg capsule Take 3 tablets by mouth twice daily (in the morning and midday), then take 4 tablets by mouth at bedtime. triamcinolone acetonide (NASACORT AQ) 55 mcg nasal inhaler Use 2 Sprays in each nostril once daily. loratadine-pseudoephedrine ER (ALLERGY RELIEF D12) 5-120 mg per tablet Take 1 tablet by mouth twice daily. albuterol HFA (PROVENTIL HFA, VENTOLIN HFA) 90 mcg/actuation inhaler Inhale 2 Puffs as instructed every 4 hours as needed for wheezing/shortness of breath. meclizine (ANTIVERT) 25 mg tab Take 1 tablet by mouth three times daily as needed (vertigo). insulin regular human, CONCENTRATED 500 UNIT/ML, (HUMULIN R) 500 unit/mL soln USE 120 PUMP UNITS DAILY (EQUIVALENT OF 600 UNITS DAILY) DIRECTED VIA INSULIN PUMP cholecalciferol, Vitamin D3, (VITAMIN D3) 1,250 mcg (50,000 unit) cap capsule Take 1 capsule by mouth one time a week. blood sugar diagnostic (CONTOUR NEXT TEST STRIPS) test strip Use as instructed to test glucose 4 times daily; E11.42, IDDM aprepitant (EMEND) 80 mg capsule Take 1 capsule by mouth once daily. elderberry fruit (ELDERBERRY ORAL) Take 2 Doses by mouth once daily. Gummies lansoprazole (PREVACID) 30 mg capsule Take 1 capsule by mouth twice daily. atenolol (TENORMIN) 50 mg tablet Take 1 tablet by mouth once daily. rosuvastatin (CRESTOR) 20 mg tablet Take 1 tablet by mouth once daily. linaclotide (LINZESS) 145 mcg capsule Take 1 capsule by mouth DAILY (6 AM). rizatriptan (MAXALT) 5 mg tablet TAKE 1 TABLET AT ONSET OF HEADACHE MAY REPEAT AFTER 2HRS DO NOT EXCEED 3 DOSES PER DAY famotidine (PEPCID) 40 mg tablet TAKE 1 TABLET BY MOUTH EVERYDAY AT BEDTIME glucagon (BAQSIMI) 3 mg/actuation nasal spray Use 1 [place] in the nose as needed for Low Blood Sugar. May repeat after 15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 Right 06/17/2020 Arthroplasty-right 5th and 5th toes Dr. 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 Will need LMWH or OAC prophylaxis for elective surgery. 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 Irritable bowel syndrome casued by Metformin Lateral epicondylitis of right elbow 04/07/2013 Mitral valve disorder Muscle mass 11/13/2011 Myofascial pain 01/04/2016 Pain in limb 08/29/2006 Painful orthopaedic hardware (HCC) 12/15/2013 PLANTAR Fasciitis 07/31/2005 Proteinuria Pure hypercholesterolemia Regional enteritis of small intestine with large intestine (HCC) Residual foreign body in soft tissue 01/11/2005 Snoring Sprain of ankle, unspecified site 11/01/2009 Thoracic or lumbosacral neuritis or radiculitis, unspecified 06/09/2009 Trigger thumb of left hand 11/04/2012 Type I (juvenile type) diabetes mellitus without mention of complication, uncontrolled 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 Vertigo Weakness 02/24/2016 FAMILY HISTORY Problem Relation Age of Onset Diabetes Father Lipids Father Heart Father [place] & Heart surg Seizures Father r/t TBI Alzheimer's Disease Father other (Other) Father fell and fractured hip- also perf bowel in fall Diabetes Mother not in contact Heart Maternal Grandfather Breast Cancer Maternal Grandmother Diabetes Paternal Grandmother Anesthesia Problems No Family History Social History Tobacco Use Smoking status: Former Packs/day: 0.25 Years: 5.00 Pack years: 1.25 Types: Cigarettes Quit date: 04/13/2009 Years since quittin.6 Smokeless tobacco: Never Substance Use Topics Alcohol use: Yes Comment: 2 drinks per year Drug use: No ALLERGIES Allergen Reactions Darvocet A500 [Prop* GI Upset Mirtazapine Unknown Penicillins Anaphylaxis Throat swells shut Adhesive Tape-Silic* Rash, Itching, Other: See Comments Peels skin off Etodolac GI Upset Latex Rash Lipitor [Atorvastat* Diarrhea Lovastatin Myalgia Muscle cramping Mobic [Meloxicam] GI Upset Morphine Vomiting Percocet [Oxycodone* Itching Propoxyphene Unknown Simvastatin GI Upset Nausea and vomiting Tramadol GI Upset Vancomycin Hives Vicodin [Hydrocodon* Other: See Comments itching and nightmares REVIEW OF SYSTEMS General: NO fever, NO chills, NO night sweats Constitutional:NO recent unwanted weight loss, NO excessive weight Skin: NO rashes, NO chronic skin condition Head: NO seizures, NO headaches, NO dizziness Respiratory: NO cough Cardiovascular: NO chest pain Gastrointestinal: NO nausea, NO vomiting, NO abdominal painEndocrine: NO thyroid problems, NO heat intolerance Musculoskeletal: see HPI Neurologic: no numbness or tingling in extremities Examination: 51-year-old female no acute distress. Alert and oriented x3. 5 foot tall 240 pounds. No effusion is noted with positive medial joint line tenderness that is impressive. Slight tenderness with valgus stress on the medial side of the knee but the MCL is intact. Radiologic review: X-rays ordered previously and to my interpretation do not reveal any significant narrowing. Impression: #1 left knee sprain #2 medial meniscal tear left knee. Recommendation is physical therapy coupled with 800 mg of ibuprofen 2 times a day for 2 weeks. Follow-up in 4 weeks if no improvement would consider further imaging. At the conclusion of the office visit, the patient was asked if they had any questions regarding the diagnosis or care. Also, ample time was provided for the patient to ask any questions regarding the diagnosis therefore plan of care. All the patient's questions if asked were answered to their satisfaction. This note was partially generated using [employer] voice recognition system and as such may contain grammatical or word errors Pierre Varela MD documented in this encounter [facility] 12-04-2021 Miscellaneous Notes Pt was notified of such. If symptoms do not improve with this, please assist in making follow-up appointment. The following approved medication requests have been transmitted electronically. Requested Prescriptions Signed Prescriptions Disp Refills benzonatate (TESSALON PERLES) 100 mg capsule 30 capsule 0 Sig: Take 1 capsule by mouth three times daily as needed for cough. Authorizing Provider: CARMEN GAMEZ APRN.DANTE Patient states she had covid about a month ago and had an antibody infusion. She reports she feels good now but has a lingering cough that won't go away . Reports she has tried everything (Mucinex, Delsym, Nyquil, cool mist humidifier) to help her cough and nothing helps. Reports she coughs day and night. Has a constant tickle and phlegm in back of throat. Denies chest discomfort, back pain, SOB, fever or other symptoms. Has two inhalers that she uses as ordered. Patient asking PCP if she would order something for her cough? Uses [facility]. Please advise. Thank you. documented in this encounter [facility] 11-23-2021 Miscellaneous Notes Pt informed, verbalized understanding Va Aguilar Ma Mouthwash sent over. If no improvement in symptoms after trying this, patient needs office visit to assess. Thank you, Carmen Gamez APRN.DOUGHNUT ICER The following approved medication requests have been transmitted electronically. Requested Prescriptions Signed Prescriptions Disp Refills npfycwtcjqJDXLJ-yadvjq-xuvwalqwz (BMX 1:1:1) 1:1:1 liqd 240 mL 0 Sig: Mix in equal amounts - 1 T every 2hrs as needed for mouth pain, Swish/swallow or expectorate. (8oz) Authorizing Provider: CARMEN GAMEZ APRN.DOUGHNUT ICER To Carmen to review to see if this is appropriate to call in, since she assessed patient, of if she needs a virtual visit. /Yifan Blum DO Patient calling she was COVID positive since 11/09 and having burning mouth syndrome. Patient said does not matter what she eats or drinks her mouth oliver, no sores noted. Patient is asking for magic mouth wash rx. Patient uses [facility] for her pharmacy. Pending rx if correct one, needs completed. Please advise documented in this encounter [facility] 11-22-2021 Miscellaneous Notes Duplication. Minerva Polanco LPN ELISA--11/13/21 NOV--NONE SCHEDULED LAST REFILL--08/26/21 21 WITH 0 REFILLS LAST LABS--11/10/21 documented in this encounter [facility] 11-20-2021 Miscellaneous Notes Last office visit: 11/13/21 F/u scheduled: none Mira Mcpherson Ma documented in this encounter [facility] 11-20-2021 Miscellaneous Notes Patient phones requesting refills as follows: Requested Prescriptions Pending Prescriptions Disp Refills gabapentin (NEURONTIN) 300 mg capsule 300 capsule 1 Sig: Take 3 tablets by mouth twice daily (in the morning and midday), then take 4 tablets by mouth at bedtime. triamcinolone acetonide (NASACORT AQ) 55 mcg nasal inhaler 16.9 mL 0 Sig: Use 2 Sprays in each nostril once daily. acyclovir (ZOVIRAX) 400 mg tablet 21 tablet 0 Sig: Take 1 tablet by mouth three times daily. acyclovir (ZOVIRAX) 5 % crea 5 g 1 Sig: Apply 1 application to affected area five times daily for 7 days. Use for 4 days with viral sores. Patient comment: I also need the cream as well please ELISA-11/13/21 Labs-11/10/21 NOV-none Please review and advise. Lana Rodriguez LPN documented in this encounter [facility] 11-14-2021 Note HNO ID: [id number] Author: Dinora Riggins RN Service: ? Author Type: Registered Nurse Type: Progress Notes Filed: 11/14/2021 3:07 PM Note Text: Pt here for MAB infusion. [facility] 11-14-2021 History of Present illness Narrative Pt here for MAB infusion. documented in this encounter [facility] 11-14-2021 Instructions Krunal Heck LPN - 11/14/2021 1:23 PM EDT For any signs of acute allergic reaction: swelling of lips, tongue, mouth, nose, throat, face, any rash, hives, generalized itching, chest pain, palpitations, increased shortness of breath, wheezing, severe dizziness, feeling like you may pass out; Call EMS and go to the ED for further evaluation and treatment. If at any time your symptoms get worse instead of better, contact your physician. Home Isolation Isolation is used to separate people infected with SARS-CoV-2, the virus that causes COVID-19, from people who are not infected. People who are in isolation should stay home until it s safe for them to be around others. In the home, anyone sick or infected should separate themselves from others by staying in a specific sick room or area and using a separate bathroom (if available). Isolation or Quarantine: What's the difference? Quarantine keeps someone who might have been exposed to the virus away from others. Isolation keeps someone who is infected with the virus away from others, even in their home. Who needs to isolate People who have COVID-19 People who have symptoms of COVID-19 and are able to recover at home People who have no symptoms (are asymptomatic) but have tested positive for infection with SARS-CoV-2 Steps to take Stay home except to get medical care Monitor your symptoms. Stay in a separate room from other household members, if possible Use a separate bathroom, if possible Avoid contact with other members of the household and pets Don t share personal household items, like cups, towels, and utensils Wear a mask when around other people, if you are able to Wash hands frequently When to seek emergency medical attention Look for emergency warning signs* for COVID-19. If someone is showing any of these signs, seek emergency medical care immediately: Trouble breathing Persistent pain or pressure in the chest New confusion Inability to wake or stay awake Bluish lips or face *This list is not all possible symptoms. Please call your medical provider for any other symptoms that are severe or concerning to you. Call 911 or call ahead to your local emergency facility: Notify the yard loader operator that you are seeking care for someone who has or may have COVID-19. Ending Home Isolation - When you can be around others after you had or likely had COVID-19 I think or know I had COVID-19, and I had symptoms You can be with others after At least 10 days since symptoms first appeared and At least 24 hours with no fever without fever-reducing medication (acetaminophen, ibuprofen, and others) and Other symptoms of COVID-19 are improving (Loss of taste and smell may persist for weeks or months after recovery and need not delay the end of isolation) If you had severe illness from COVID-19 (you were admitted to a hospital and needed oxygen), your healthcare provider may recommend that you stay in isolation for longer than 10 days after your symptoms first appeared (possibly up to 20 days) and you may need to finish your period of isolation at home. I tested positive for COVID-19 but had no symptoms If you continue to have no symptoms, you can be with others after: 10 days have passed since the date you had your positive test If you develop symptoms after testing positive, follow the guidance above for I think or know I had COVID, and I had symptoms. I had COVID-19 or I tested positive for COVID-19 and I have a weakened immune system If you have a weakened immune system (immunocompromised) due to a health condition or medication, you might need to stay home and isolate longer than 10 days. Talk to your healthcare provider for more information. Your doctor may work with an infectious disease expert at your local health department to determine when you can be around others. Fact Sheet for Patients, Parents, and Caregivers Emergency Use Authorization (EUA) of Bebtelovimab for Coronavirus Disease 2019 (COVID-19) You are being given this Fact Sheet because your healthcare provider believes it is necessary to provide you or your child with bebtelovimab for the treatment of yrvc-wq-suudtxpa coronavirus disease 2019 (COVID-19) in adults and children (12 years of age and older weighing at least 88 pounds [40 kg]) with positive results of direct severe acute respiratory syndrome coronavirus 2 (SARS-CoV-2) viral testing, and who are at high risk for progression to severe COVID-19, including hospitalization or , and for whom other COVID-19 treatment options approved or authorized by FDA are not available or clinically appropriate. This Fact Sheet contains information to help you understand the potential risks and potential benefits of receiving bebtelovimab, which you or your child have received or may receive. The [place]. Food and Drug Administration (FDA) has issued an Emergency Use Authorization (EUA) to make bebtelovimab available during the COVID-19 pandemic (for more details about an EUA please see What is an Emergency Use Authorization? at the end of this document). Bebtelovimab is not an FDA-approved medicine in the [place]. Read this Fact Sheet for information about bebtelovimab. Talk to your healthcare provider about your options or if you have any questions. It is your choice for you or your child to receive bebtelovimab or stop it at any time. What is COVID-19? COVID-19 is caused by a virus called a coronavirus (SARS-CoV-2). You can get COVID19 through contact with another person who has the virus. COVID-19 illnesses have ranged from very mild (including some with no reported symptoms) to severe, including illness resulting in . While information so far suggests that most COVID-19 illness is mild, serious illness can happen and may cause some of your or your child s other medical conditions to become worse. Older people and people of all ages with severe, or long lasting (chronic) medical conditions like heart disease, lung disease, diabetes, and obesity, for example, seem to be at higher risk of being hospitalized for COVID-19. Older age, with or without other conditions, also places people at higher risk of being hospitalized for COVID-19. What is bebtelovimab? Bebtelovimab is an investigational medicine used for the treatment of dcwu-hg-nashlgbr coronavirus disease 2019 (COVID-19) in adults and children (12 years of age and older weighing at least 88 pounds [40 kg]): with positive results of direct SARS-CoV-2 viral testing, and who are at high risk1 for progression to severe COVID-19, including hospitalization or , and for whom other COVID-19 treatment options approved or authorized by FDA are not available or clinically appropriate. There is limited information known about the safety and effectiveness of using bebtelovimab for the treatment of vgwf-bk-pllkazld COVID-19. For more information on EUA, see the What is an Emergency Use Authorization (EUA)? section at the end of this Fact Sheet. Bebtelovimab is not authorized for use in people who: are likely to be infected with a SARS-CoV-2 variant that is not able to be treated by bebtelovimab based on the circulating variants in your area (ask your health care provider about FDA and CDC s latest information on circulating variants by geographic area), or are hospitalized due to COVID-19, or require oxygen therapy and/or respiratory support due to COVID-19, or require an increase in baseline oxygen flow rate and/or respiratory support due to COVID19 and are on chronic oxygen therapy and/or respiratory support due to underlying nonCOVID-19 related comorbidity. What should I tell my healthcare provider before I or my child receive bebtelovimab? Tell your healthcare provider about all your or your child s medical conditions including if you or your child: Have any allergies Are or plan to become Are or plan to breastfeed Have any serious illnesses Are taking any medicines (prescription, and pbcd-dit-ukhwfrx, vitamins, or herbal products) How will I or my child receive bebtelovimab? Bebtelovimab will be given as an injection through a vein (intravenously or IV) over at least 30 seconds. You will be observed by your healthcare provider for at least 1 hour after you receive bebtelovimab. What are the important possible side effects of bebtelovimab? Allergic reactions. Allergic reactions can happen during and after injection with bebtelovimab. Tell your healthcare provider right away if you or your child develop any of the following signs and symptoms of allergic reaction: fever, difficulty breathing, low oxygen level in your blood, chills, tiredness, fast or slow heart rate, chest discomfort or 1 For information on medical conditions and factors associated with increased risk for progression to severe COVID-19, see the Centers for Disease Control and Prevention (CDC) website: https://www.cdc.gov/coronavirus/20 19-ncov/need-extraprecautions/peop gj-dnfg-bpajqma-conditions.html. Healthcare providers should consider the benefit-risk for an individual patient. pain, weakness, confusion, nausea, headache, shortness of breath, low or high blood pressure, wheezing, swelling of your lips, face, or throat, rash including hives, itching, muscle aches, dizziness, feeling faint, and sweating. These reactions may be severe or life threatening. The side effects of receiving any medicine by vein may include brief pain, bleeding, bruising of the skin, soreness, swelling, and possible infection at the injection site. These are not all the possible side effects of bebtelovimab. Not many people have received bebtelovimab. Serious and unexpected side effects may happen. All of the risks are not known at this time. It is possible that bebtelovimab could interfere with your body's own ability to fight off a future infection of SARS-CoV-2. Similarly, bebtelovimab may reduce the body s immune response to a vaccine for SARS-CoV-2. Talk to your healthcare provider if you have any questions. What other treatment choices are there? Like bebtelovimab, FDA may allow for the emergency use of other medicines to treat people with COVID-19. Go to https://www.fda.gov/emergency-prep dwooyxay-pjo-qfqarguz/mcm-legalreg fxjqopj-pci-odslsl-framework/emerg exah-rrz-hmnxiclotsbiw for information on the emergency use of other medicines that are authorized by FDA to treat people with COVID-19. Your healthcare provider may talk with you about clinical trials for which you may be eligible. It is your choice for you or your child to be treated or not to be treated with bebtelovimab. Should you decide not to receive it or for your child to not receive it, it will not change your or your child s standard medical care. What if I am or ? There is limited experience treating women or mothers with bebtelovimab. For a mother and unborn baby, the benefit of receiving bebtelovimab may be greater than the risk from the treatment. If or , discuss your options and specific situation with your healthcare provider. How do I report side effects with bebtelovimab? Contact your healthcare provider if you have any side effects that bother you or do not go away. Report side effects to FDA MedWatch at www.fda.gov/medwatch, or call 7-974-ZZZ-7739 or to [employer] and [employer] as shown below. Email Fax Number Telephone Number [email or web address] [phone] ( ) How can I learn more about COVID-19? Ask your healthcare provider Visit https://www.cdc.gov/COVID19 Contact your local or state public health department What is an Emergency Use Authorization? The [place] FDA has made bebtelovimab available under an emergency access mechanism called an Emergency Use Authorization (EUA). The EUA is supported by a [place] of Health and Human Service (HHS) declaration that circumstances exist to justify the emergency use of drugs and biological products during the COVID-19 pandemic. Bebtelovimab for the treatment of kucl-va-ckkojlfh COVID-19 in adults and children (12 years of age and older weighing at least 88 pounds [40 kg]) and who are at high risk of developing severe COVID-19, including hospitalization or , and for whom other COVID19 treatment options approved or authorized by FDA are not available or clinically appropriate has not undergone the same type of review as an FDA-approved product. In issuing an EUA under the COVID-19 public health emergency, the FDA has determined, among other things, that based on the total amount of scientific evidence available, including data from adequate and well-controlled clinical trials, it is reasonable to believe that the product may be effective for diagnosing, treating, or preventing COVID-19, or a serious or life-threatening disease or condition caused by COVID-19; that the known and potential benefits of the product, when used to diagnose, treat, or prevent such disease or condition, outweigh the known and potential risks of such product; and that there are no adequate, approved and available alternatives. All of these criteria must be met to allow for the product to be used in the treatment of patients during the COVID-19 pandemic. The EUA for bebtelovimab is in effect for the duration of the COVID-19 declaration justifying emergency use of bebtelovimab, unless terminated or revoked (after which bebtelovimab may no longer be used under the EUA). Additional Information For general questions, visit the website or call the telephone number provided below. Website Telephone Number [email or web address]/[email or web address] [phone] ( Literature issued March 24, 2021 [employer], [place], [place] [facility], [place] Copyright 2021, [employer] and [employer]. All rights reserved. [id number]-EUA [facility]-[id number] For any signs of acute allergic reaction: swelling of lips, tongue, mouth, nose, throat, face, any rash, hives, generalized itching, chest pain, palpitations, increased shortness of breath, wheezing, severe dizziness, feeling like you may pass out; Call EMS and go to the ED for further evaluation and treatment. If at any time your symptoms get worse instead of better, contact your physician. Home Isolation Isolation is used to separate people infected with SARS-CoV-2, the virus that causes COVID-19, from people who are not infected. People who are in isolation should stay home until it s safe for them to be around others. In the home, anyone sick or infected should separate themselves from others by staying in a specific sick room or area and using a separate bathroom (if available). Isolation or Quarantine: What's the difference? Quarantine keeps someone who might have been exposed to the virus away from others. Isolation keeps someone who is infected with the virus away from others, even in their home. Who needs to isolate People who have COVID-19 People who have symptoms of COVID-19 and are able to recover at home People who have no symptoms (are asymptomatic) but have tested positive for infection with SARS-CoV-2 Steps to take Stay home except to get medical care Monitor your symptoms. Stay in a separate room from other household members, if possible Use a separate bathroom, if possible Avoid contact with other members of the household and pets Don t share personal household items, like cups, towels, and utensils Wear a mask when around other people, if you are able to Wash hands frequently When to seek emergency medical attention Look for emergency warning signs* for COVID-19. If someone is showing any of these signs, seek emergency medical care immediately: Trouble breathing Persistent pain or pressure in the chest New confusion Inability to wake or stay awake Bluish lips or face *This list is not all possible symptoms. Please call your medical provider for any other symptoms that are severe or concerning to you. Call 911 or call ahead to your local emergency facility: Notify the yard loader operator that you are seeking care for someone who has or may have COVID-19. Ending Home Isolation - When you can be around others after you had or likely had COVID-19 I think or know I had COVID-19, and I had symptoms You can be with others after At least 10 days since symptoms first appeared and At least 24 hours with no fever without fever-reducing medication (acetaminophen, ibuprofen, and others) and Other symptoms of COVID-19 are improving (Loss of taste and smell may persist for weeks or months after recovery and need not delay the end of isolation) If you had severe illness from COVID-19 (you were admitted to a hospital and needed oxygen), your healthcare provider may recommend that you stay in isolation for longer than 10 days after your symptoms first appeared (possibly up to 20 days) and you may need to finish your period of isolation at home. I tested positive for COVID-19 but had no symptoms If you continue to have no symptoms, you can be with others after: 10 days have passed since the date you had your positive test If you develop symptoms after testing positive, follow the guidance above for I think or know I had COVID, and I had symptoms. I had COVID-19 or I tested positive for COVID-19 and I have a weakened immune system If you have a weakened immune system (immunocompromised) due to a health condition or medication, you might need to stay home and isolate longer than 10 days. Talk to your healthcare provider for more information. Your doctor may work with an infectious disease expert at your local health department to determine when you can be around others. Fact Sheet for Patients, Parents, and Caregivers Emergency Use Authorization (EUA) of Bebtelovimab for Coronavirus Disease 2019 (COVID-19) You are being given this Fact Sheet because your healthcare provider believes it is necessary to provide you or your child with bebtelovimab for the treatment of fgok-dx-emmklbbx coronavirus disease 2019 (COVID-19) in adults and children (12 years of age and older weighing at least 88 pounds [40 kg]) with positive results of direct severe acute respiratory syndrome coronavirus 2 (SARS-CoV-2) viral testing, and who are at high risk for progression to severe COVID-19, including hospitalization or , and for whom other COVID-19 treatment options approved or authorized by FDA are not available or clinically appropriate. This Fact Sheet contains information to help you understand the potential risks and potential benefits of receiving bebtelovimab, which you or your child have received or may receive. The [place]S. Food and Drug Administration (FDA) has issued an Emergency Use Authorization (EUA) to make bebtelovimab available during the COVID-19 pandemic (for more details about an EUA please see What is an Emergency Use Authorization? at the end of this document). Bebtelovimab is not an FDA-approved medicine in the [place]. Read this Fact Sheet for information about bebtelovimab. Talk to your healthcare provider about your options or if you have any questions. It is your choice for you or your child to receive bebtelovimab or stop it at any time. What is COVID-19? COVID-19 is caused by a virus called a coronavirus (SARS-CoV-2). You can get COVID19 through contact with another person who has the virus. COVID-19 illnesses have ranged from very mild (including some with no reported symptoms) to severe, including illness resulting in . While information so far suggests that most COVID-19 illness is mild, serious illness can happen and may cause some of your or your child s other medical conditions to become worse. Older people and people of all ages with severe, or long lasting (chronic) medical conditions like heart disease, lung disease, diabetes, and obesity, for example, seem to be at higher risk of being hospitalized for COVID-19. Older age, with or without other conditions, also places people at higher risk of being hospitalized for COVID-19. What is bebtelovimab? Bebtelovimab is an investigational medicine used for the treatment of dxox-zu-pzbddeyt coronavirus disease 2019 (COVID-19) in adults and children (12 years of age and older weighing at least 88 pounds [40 kg]): with positive results of direct SARS-CoV-2 viral testing, and who are at high risk1 for progression to severe COVID-19, including hospitalization or , and for whom other COVID-19 treatment options approved or authorized by FDA are not available or clinically appropriate. There is limited information known about the safety and effectiveness of using bebtelovimab for the treatment of rqdk-fz-ogedccxf COVID-19. For more information on EUA, see the What is an Emergency Use Authorization (EUA)? section at the end of this Fact Sheet. Bebtelovimab is not authorized for use in people who: are likely to be infected with a SARS-CoV-2 variant that is not able to be treated by bebtelovimab based on the circulating variants in your area (ask your health care provider about FDA and CDC s latest information on circulating variants by geographic area), or are hospitalized due to COVID-19, or require oxygen therapy and/or respiratory support due to COVID-19, or require an increase in baseline oxygen flow rate and/or respiratory support due to COVID19 and are on chronic oxygen therapy and/or respiratory support due to underlying nonCOVID-19 related comorbidity. What should I tell my healthcare provider before I or my child receive bebtelovimab? Tell your healthcare provider about all your or your child s medical conditions including if you or your child: Have any allergies Are or plan to become Are or plan to breastfeed Have any serious illnesses Are taking any medicines (prescription, and lptd-ota-ecnpcei, vitamins, or herbal products) How will I or my child receive bebtelovimab? Bebtelovimab will be given as an injection through a vein (intravenously or IV) over at least 30 seconds. You will be observed by your healthcare provider for at least 1 hour after you receive bebtelovimab. What are the important possible side effects of bebtelovimab? Allergic reactions. Allergic reactions can happen during and after injection with bebtelovimab. Tell your healthcare provider right away if you or your child develop any of the following signs and symptoms of allergic reaction: fever, difficulty breathing, low oxygen level in your blood, chills, tiredness, fast or slow heart rate, chest discomfort or 1 For information on medical conditions and factors associated with increased risk for progression to severe COVID-19, see the Centers for Disease Control and Prevention (CDC) website: https://www.cdc.gov/coronavirus/20 19-ncov/need-extraprecautions/peop hl-lbbn-qcnwccd-conditions.html. Healthcare providers should consider the benefit-risk for an individual patient. pain, weakness, confusion, nausea, headache, shortness of breath, low or high blood pressure, wheezing, swelling of your lips, face, or throat, rash including hives, itching, muscle aches, dizziness, feeling faint, and sweating. These reactions may be severe or life threatening. The side effects of receiving any medicine by vein may include brief pain, bleeding, bruising of the skin, soreness, swelling, and possible infection at the injection site. These are not all the possible side effects of bebtelovimab. Not many people have received bebtelovimab. Serious and unexpected side effects may happen. All of the risks are not known at this time. It is possible that bebtelovimab could interfere with your body's own ability to fight off a future infection of SARS-CoV-2. Similarly, bebtelovimab may reduce the body s immune response to a vaccine for SARS-CoV-2. Talk to your healthcare provider if you have any questions. What other treatment choices are there? Like bebtelovimab, FDA may allow for the emergency use of other medicines to treat people with COVID-19. Go to https://www.fda.gov/emergency-prep ssfiogxg-tak-ulphtxbl/mcm-legalreg vgwnfwr-xwf-ymdqfo-framework/emerg pngn-cka-hcqtwvqgiawsp for information on the emergency use of other medicines that are authorized by FDA to treat people with COVID-19. Your healthcare provider may talk with you about clinical trials for which you may be eligible. It is your choice for you or your child to be treated or not to be treated with bebtelovimab. Should you decide not to receive it or for your child to not receive it, it will not change your or your child s standard medical care. What if I am or ? There is limited experience treating women or mothers with bebtelovimab. For a mother and unborn baby, the benefit of receiving bebtelovimab may be greater than the risk from the treatment. If or , discuss your options and specific situation with your healthcare provider. How do I report side effects with bebtelovimab? Contact your healthcare provider if you have any side effects that bother you or do not go away. Report side effects to FDA MedWatch at www.fda.gov/medwatch, or call 3-398-FFV-6144 or to [employer] and [employer] as shown below. Email Fax Number Telephone Number [email or web address] [phone] ( ) How can I learn more about COVID-19? Ask your healthcare provider Visit https://www.cdc.gov/COVID19 Contact your local or state public health department What is an Emergency Use Authorization? The [place] FDA has made bebtelovimab available under an emergency access mechanism called an Emergency Use Authorization (EUA). The EUA is supported by a [place] of Health and Human Service (HHS) declaration that circumstances exist to justify the emergency use of drugs and biological products during the COVID-19 pandemic. Bebtelovimab for the treatment of ngze-wv-rijhckne COVID-19 in adults and children (12 years of age and older weighing at least 88 pounds [40 kg]) and who are at high risk of developing severe COVID-19, including hospitalization or , and for whom other COVID19 treatment options approved or authorized by FDA are not available or clinically appropriate has not undergone the same type of review as an FDA-approved product. In issuing an EUA under the COVID-19 public health emergency, the FDA has determined, among other things, that based on the total amount of scientific evidence available, including data from adequate and well-controlled clinical trials, it is reasonable to believe that the product may be effective for diagnosing, treating, or preventing COVID-19, or a serious or life-threatening disease or condition caused by COVID-19; that the known and potential benefits of the product, when used to diagnose, treat, or prevent such disease or condition, outweigh the known and potential risks of such product; and that there are no adequate, approved and available alternatives. All of these criteria must be met to allow for the product to be used in the treatment of patients during the COVID-19 pandemic. The EUA for bebtelovimab is in effect for the duration of the COVID-19 declaration justifying emergency use of bebtelovimab, unless terminated or revoked (after which bebtelovimab may no longer be used under the EUA). Additional Information For general questions, visit the website or call the telephone number provided below. Website Telephone Number [employer]/bebtelovimab [phone] ( Literature issued March 24, 2021 [employer], [place] [address], [place] Copyright 2021, [employer]. All rights reserved. [id number] [facility] documented in this encounter [facility] 11-14-2021 Nurse Note Patient has been verified by name and Allergies reviewed to received Bebtkovimob for Covid Positive Infusion ,Vital within normal limites,Denies pain ,SOB . IV insertion and Infusion tolerated well staff continued to monitor while in Clinic. No adverse reaction to note , given Patient instructions/AVS reminded to Follow up with ER for emergency after Infusion with any reactions . documented in this encounter [facility] 11-13-2021 Usha Gamez APRN.[employer] - 11/13/2021 1:41 PM EDT Fact Sheet for Patients, Parents, and Caregivers Emergency Use Authorization (EUA) of Bebtelovimab for Coronavirus Disease 2019 (COVID-19) You are being given this Fact Sheet because your healthcare provider believes it is necessary to provide you or your child with bebtelovimab for the treatment of cxsg-qw-rpuxckpk coronavirus disease 2019 (COVID-19) in adults and children (12 years of age and older weighing at least 88 pounds [40 kg]) with positive results of direct severe acute respiratory syndrome coronavirus 2 (SARS-CoV-2) viral testing, and who are at high risk for progression to severe COVID-19, including hospitalization or , and for whom other COVID-19 treatment options approved or authorized by FDA are not available or clinically appropriate. This Fact Sheet contains information to help you understand the potential risks and potential benefits of receiving bebtelovimab, which you or your child have received or may receive. The [place] Food and Drug Administration (FDA) has issued an Emergency Use Authorization (EUA) to make bebtelovimab available during the COVID-19 pandemic (for more details about an EUA please see What is an Emergency Use Authorization? at the end of this document). Bebtelovimab is not an FDA-approved medicine in the [place]. Read this Fact Sheet for information about bebtelovimab. Talk to your healthcare provider about your options or if you have any questions. It is your choice for you or your child to receive bebtelovimab or stop it at any time. What is COVID-19? COVID-19 is caused by a virus called a coronavirus (SARS-CoV-2). You can get COVID-19 through contact with another person who has the virus. COVID-19 illnesses have ranged from very mild (including some with no reported symptoms) to severe, including illness resulting in . While information so far suggests that most COVID-19 illness is mild, serious illness can happen and may cause some of your or your child s other medical conditions to become worse. Older people and people of all ages with severe, or long lasting (chronic) medical conditions like heart disease, lung disease, diabetes, and obesity, for example, seem to be at higher risk of being hospitalized for COVID-19. Older age, with or without other conditions, also places people at higher risk of being hospitalized for COVID-19. What is bebtelovimab? Bebtelovimab is an investigational medicine used for the treatment of fmuf-xh-esysvlgt coronavirus disease 2019 (COVID-19) in adults and children (12 years of age and older weighing at least 88 pounds [40 kg]): with positive results of direct SARS-CoV-2 viral testing, and who are at high risk for progression to severe COVID-19, including hospitalization or , and for whom other COVID-19 treatment options approved or authorized by FDA are not available or clinically appropriate. There is limited information known about the safety and effectiveness of using bebtelovimab for the treatment of tscx-sc-ksabeduo COVID-19. For more information on EUA, see the What is an Emergency Use Authorization (EUA)? section at the end of this Fact Sheet. Bebtelovimab is not authorized for use in people who: are likely to be infected with a SARS-CoV-2 variant that is not able to be treated by bebtelovimab based on the circulating variants in your area (ask your health care provider about FDA and CDC s latest information on circulating variants by geographic area), or are hospitalized due to COVID-19, or require oxygen therapy and/or respiratory support due to COVID-19, or require an increase in baseline oxygen flow rate and/or respiratory support due to COVID-19 and are on chronic oxygen therapy and/or respiratory support due to underlying [id number] related comorbidity. What should I tell my healthcare provider before I or my child receive bebtelovimab? Tell your healthcare provider about all your or your child s medical conditions including if you or your child: Have any allergies Are or plan to become Are or plan to breastfeed Have any serious illnesses Are taking any medicines (prescription, and xeyq-fjb-aspekcn, vitamins, or herbal products) How will I or my child receive bebtelovimab? Bebtelovimab will be given as an injection through a vein (intravenously or IV) over at least 30 seconds. You will be observed by your healthcare provider for at least 1 hour after you receive bebtelovimab. What are the important possible side effects of bebtelovimab? Allergic reactions. Allergic reactions can happen during and after injection with bebtelovimab. Tell your healthcare provider right away if you or your child develop any of the following signs and symptoms of allergic reaction: fever, difficulty breathing, low oxygen level in your blood, chills, tiredness, fast or slow heart rate, chest discomfort or pain, weakness, confusion, nausea, headache, shortness of breath, low or high blood pressure, wheezing, swelling of your lips, face, or throat, rash including hives, itching, muscle aches, dizziness, feeling faint, and sweating. These reactions may be severe or life threatening. The side effects of receiving any medicine by vein may include brief pain, bleeding, bruising of the skin, soreness, swelling, and possible infection at the injection site. These are not all the possible side effects of bebtelovimab. Not many people have received bebtelovimab. Serious and unexpected side effects may happen. All of the risks are not known at this time. It is possible that bebtelovimab could interfere with your body's own ability to fight off a future infection of SARS-CoV-2. Similarly, bebtelovimab may reduce the body s immune response to a vaccine for SARS-CoV-2. Talk to your healthcare provider if you have any questions. What other treatment choices are there? Like bebtelovimab, FDA may allow for the emergency use of other medicines to treat people with COVID-19. Go to https://www.fda.gov/emergency-prep gemnxitq-joc-iwkrwrqk/unx-pagpg-em xdzvpcep-tpd-mqlmii-framework/edgar dejun-ewc-lroyhcpsqrqzt for information on the emergency use of other medicines that are authorized by FDA to treat people with COVID-19. Your healthcare provider may talk with you about clinical trials for which you may be eligible. It is your choice for you or your child to be treated or not to be treated with bebtelovimab. Should you decide not to receive it or for your child to not receive it, it will not change your or your child s standard medical care. What if I am or ? There is limited experience treating women or mothers with bebtelovimab. For a mother and unborn baby, the benefit of receiving bebtelovimab may be greater than the risk from the treatment. If or , discuss your options and specific situation with your healthcare provider. How do I report side effects with bebtelovimab? Contact your healthcare provider if you have any side effects that bother you or do not go away. Report side effects to FDA MedWatch at www.fda.gov/medwatch, or call 4-512-HWH-0576 or to [employer] as shown below. Email Fax Number Telephone Number [email or web address] [phone] ( ) How can I learn more about COVID-19? Ask your healthcare provider Visit https://www.cdc.gov/COVID19 Contact your local or state public health department What is an Emergency Use Authorization? The [place] FDA has made bebtelovimab available under an emergency access mechanism called an Emergency Use Authorization (EUA). The EUA is supported by a Computer Networking Instructor of Health and Human Service ([facility]) declaration that circumstances exist to justify the emergency use of drugs and biological products during the COVID-19 pandemic. Bebtelovimab for the treatment of glyw-rp-yspljnuw COVID-19 in adults and children (12 years of age and older weighing at least 88 pounds [40 kg]) and who are at high risk of developing severe COVID-19, including hospitalization or , and for whom other COVID-19 treatment options approved or authorized by FDA are not available or clinically appropriate has not undergone the same type of review as an FDA-approved product. In issuing an EUA under the COVID-19 public health emergency, the FDA has determined, among other things, that based on the total amount of scientific evidence available, including data from adequate and well-controlled clinical trials, it is reasonable to believe that the product may be effective for diagnosing, treating, or preventing COVID-19, or a serious or life-threatening disease or condition caused by COVID-19; that the known and potential benefits of the product, when used to diagnose, treat, or prevent such disease or condition, outweigh the known and potential risks of such product; and that there are no adequate, approved and available alternatives. All of these criteria must be met to allow for the product to be used in the treatment of patients during the COVID-19 pandemic. The EUA for bebtelovimab is in effect for the duration of the COVID-19 declaration justifying emergency use of bebtelovimab, unless terminated or revoked (after which bebtelovimab may no longer be used under the EUA). Additional Information For general questions, visit the website or call the telephone number provided below. Website Telephone Number [email or web address] [phone]-[phone] ( ) Literature issued March 24, 2021 [employer], [place] [address], [facility] Copyright 2021, [employer]. All rights reserved. [id number]-EUA [facility]-[id number] documented in this encounter [facility] 11-13-2021 History of Present illness Narrative COVID-19 Monoclonal Antibody Pharmacist Review Pharmacist has reviewed and verified eligibility for bebtelovimab infusion based on [facility] formulary restriction criteria. Date of Symptom Onset: 11/09 Date of Positive Test: 11/09 Criteria Met: Yes and pharmacist has determined that the patient is eligible for a COVID-19 monoclonal antibody. The patient's preferred site of infusion location is [place] (immunosuppressed) [x] Consult order for 'COVID TREATMENT REFERRAL' has been released Jamshdi Rhodes RPh November 13, 2021 2:48 PM This Team Access Model visit is a phone encounter. It required patient-provider interaction for the medical decision making as documented below. Patient agrees to the visit: Yes Patient Location: [place] CC: Patient presents with: Covid19 Concern HPI Jacque Rodriguez is a 51 year old female who is contacted today for a phone visit. This is an established patient of Dr. Yifan Blum DO. Jacque Zhu is a new patient to me today. Unable to get microphone working on computer. Switched to telephone encounter. Concerns today.. COVID 19--- COVID19 + on 11/09/21 via visit. Symptoms started on 11/09 Report symptoms of: Coughing non-stop, runny nose and stuffy nose, slight fever, and generalized weakness. Denies any CP, SOB, or dizziness. Using albuterol inhaler which is giving some relief. Hx of asthma. Pt did research on monoclonal antibody infusion and paxlovid and would really prefer monoclonal antibody infusion. Discussed options of where to get infusion at. On day 5 currently so needs expedited. 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 Will need LMWH or OAC prophylaxis for elective surgery. 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 Irritable bowel syndrome casued by Metformin Lateral epicondylitis of right elbow 04/07/2013 Mitral valve disorder Muscle mass 11/13/2011 Myofascial pain 01/04/2016 Pain in limb 08/29/2006 Painful orthopaedic hardware (HCC) 12/15/2013 PLANTAR Fasciitis 07/31/2005 Proteinuria Pure hypercholesterolemia Regional enteritis of small intestine with large intestine (HCC) Residual foreign body in soft tissue 01/11/2005 Snoring Sprain of ankle, unspecified site 11/01/2009 Thoracic or lumbosacral neuritis or radiculitis, unspecified 06/09/2009 Trigger thumb of left hand 11/04/2012 Type I (juvenile type) diabetes mellitus without mention of complication, uncontrolled 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 Vertigo Weakness 02/24/2016 PAST SURGICAL HISTORY Procedure Laterality Date DELIVERY ONLY , 11/12 and 10/15 , low cervical x3 EGD TRANSORAL BIOPSY SINGLE/MULTIPLE 08/03/2016 distal erosive gastritis, no retained food, no hiatal hernia ESOPHAGOGASTRODUODENOSCOPY TRANSORAL DIAGNOSTIC 02/01/2021 EXCISION GANGLION WRIST DORSAL/VOLAR PRIMARY Right 08/24/2014 Excison mass right wrist LIG/TRNSXJ FLP TUBE ABDL/VAG APPR UNI/BI 10/29/2003 Tubal ligation NEUROPLASTY &/TRANSPOSITION ULNAR NERVE ELBOW 12/21/2011 Ulnar nerve decompression left elbow NEUROPLASTY &/TRANSPOSITION ULNAR NERVE ELBOW 04/17/2012 Ulnar nerve decompression right elbow OPEN TREATMENT METATARSAL FRACTURE EACH 09/15/2012 ORIF left 5th Metatarsal PAST SURGICAL HISTORY OF 01/27/2009 Right wrist carpal tunnel surgery PAST SURGICAL HISTORY OF 03/17/2009 Left wrist carpal tunnel surgery PAST SURGICAL HISTORY OF 06/2011 left elbow cellulitis tendon surgery PAST SURGICAL HISTORY OF 12/19/2012 left trigger thumb release PAST SURGICAL HISTORY OF 01/22/2014 removal of hardware, foot. PAST SURGICAL HISTORY OF Left 11/30/2016 plantar fasciotomy w/ resection of infracalcaneal spur; Dr. Hand PAST SURGICAL HISTORY OF Right 11/14/2018 4.9lb lipoma removed left lower leg PAST SURGICAL HISTORY OF Right 06/17/2020 Arthroplasty-right 5th and 5th toes Dr. Hand DPM TNOT ELBOW LATERAL/MEDIAL DEBRIDE OPEN 05/15/2013 Right lateral epicondyle debridement TONSILLECTOMY PRIMARY/SECONDARY <AGE 12 Tonsillectomy ALLERGIES Darvocet A500 [Propoxyphene N-Acetaminophen], Mirtazapine, Penicillins, Adhesive Tape-Silicones, Etodolac, Latex, Lipitor [Atorvastatin Calcium], Lovastatin, Mobic [Meloxicam], Morphine, Percocet [Oxycodone-Acetaminophen], Propoxyphene, Simvastatin, Tramadol, Vancomycin, and Vicodin [Hydrocodone-Acetaminophen] MEDICATIONS albuterol HFA (PROVENTIL HFA, VENTOLIN HFA) 90 mcg/actuation inhaler Inhale 2 Puffs as instructed every 4 hours as needed for wheezing/shortness of breath. mometasone-formoterol (DULERA) 100-5 mcg/actuation inhaler Inhale 2 Puffs as instructed twice daily. meclizine (ANTIVERT) 25 mg tab Take 1 tablet by mouth three times daily as needed (vertigo). insulin regular human, CONCENTRATED 500 UNIT/ML, (HUMULIN R) 500 unit/mL soln USE 120 PUMP UNITS DAILY (EQUIVALENT OF 600 UNITS DAILY) DIRECTED VIA INSULIN PUMP cholecalciferol, Vitamin D3, (VITAMIN D3) 1,250 mcg (50,000 unit) cap capsule Take 1 capsule by mouth one time a week. blood sugar diagnostic (CONTOUR NEXT TEST STRIPS) test strip Use as instructed to test glucose 4 times daily; E11.42, IDDM acyclovir (ZOVIRAX) 400 mg tablet Take 1 tablet by mouth three times daily. triamcinolone acetonide (NASACORT AQ) 55 mcg nasal inhaler USE 2 SPRAYS IN EACH NOSTRIL ONCE DAILY gabapentin (NEURONTIN) 300 mg capsule Take 3 tablets by mouth twice daily (in the morning and midday), then take 4 tablets by mouth at bedtime. ibuprofen (MOTRIN) 800 mg tablet Take 1 tablet by mouth every 8 hours as needed for pain. aprepitant (EMEND) 80 mg capsule Take 1 capsule by mouth once daily. elderberry fruit (ELDERBERRY ORAL) Take 2 Doses by mouth once daily. Gummies lansoprazole (PREVACID) 30 mg capsule Take 1 capsule by mouth twice daily. atenolol (TENORMIN) 50 mg tablet Take 1 tablet by mouth once daily. rosuvastatin (CRESTOR) 20 mg tablet Take 1 tablet by mouth once daily. rizatriptan (MAXALT) 5 mg tablet TAKE 1 TABLET AT ONSET OF HEADACHE MAY REPEAT AFTER 2HRS DO NOT EXCEED 3 DOSES PER DAY famotidine (PEPCID) 40 mg tablet TAKE 1 TABLET BY MOUTH EVERYDAY AT BEDTIME glucagon (BAQSIMI) 3 mg/actuation nasal spray Use 1 [place] in the nose as needed for Low Blood Sugar. May repeat after 15 minutes using a new device if there is no response. glucagon (GLUCAGON EMERGENCY KIT, HUMAN,) 1 mg solr Inject (1)one mg for insulin shock. Blood-Glucose Sensor (DEXCOM G6 SENSOR) bird 300 Units. Humulin R unit(s)-500 every 3 days promethazine (PHENERGAN) 25 mg tablet Take 1 tablet by mouth every 6 hours as needed (for nausea). Blood-Glucose Meter monitoring kit Use to test glucose daily in case Chelsy not working. DX: E11.65, insulin dependent. Insulin Pump Cartridge crtg Inject subcutaneously. glucose (DEX4 GLUCOSE) 4 gram chewable tablet Take 4 tablets by mouth as needed for Low Blood Sugar. COMPOUNDED PRESCRIPTION Diabetic shoes one pair with inserts Dx Type 1 diabetes E10.65 dicyclomine (BENTYL) 20 mg tablet TAKE 1 TABLET BY MOUTH 3 TIMES A DAY NEEDED multivitamin tablet Take 1 tablet by mouth once daily. COMPOUNDED PRESCRIPTION Shower Grab Bars DX R29.6,R42 Lancets lancets Test blood sugar(s) 4-6 times daily. Dx: Type 2 DM - Uncontrolled E11.65 Insulin: Yes Urine Glucose-Ketones Test (KETO-DIASTIX) strp 1 Strip as needed. lidocaine (ASPERCREME, LIDOCAINE,) 4 % patch Apply 1 application as directed once daily. (Patient not taking: Reported on 11/13/2021) levETIRAcetam (KEPPRA) 500 mg tablet Take 1 tablet by mouth twice daily. glucagon (GLUCAGEN HYPOKIT) 1 mg injection Inject 1 mg subcutaneously one time only for 1 dose. cyclobenzaprine (FLEXERIL) 10 mg tablet Take 1 tablet by mouth three times daily as needed for muscle spasm or pain. (Patient not taking: No sig reported) granisetron HCl (KYTRIL) 1 mg tablet Take 1 tablet by mouth every 12 hours as needed. FLUoxetine (PROZAC) 20 mg capsule Take 1 capsule by mouth once daily. In the morning (Patient not taking: No sig reported) linaclotide (LINZESS) 145 mcg capsule Take 1 capsule by mouth DAILY (6 AM). loratadine-pseudoephedrine ER (ALLERGY RELIEF D12) 5-120 mg per tablet Take 1 tablet by mouth twice daily. FAMILY HISTORY Problem Relation Age of Onset Diabetes Father Lipids Father Heart Father [place] & Heart surg Seizures Father r/t TBI Alzheimer's Disease Father other (Other) Father fell and fractured hip- also perf bowel in fall Diabetes Mother not in contact Heart Maternal Grandfather Breast Cancer Maternal Grandmother Diabetes Paternal Grandmother Anesthesia Problems No Family History Social History Tobacco Use Smoking status: Former Packs/day: 0.25 Years: 5.00 Pack years: 1.25 Types: Cigarettes Quit date: 04/13/2009 Years since quittin.5 Smokeless tobacco: Never Substance Use Topics Alcohol use: Yes Comment: 2 drinks per year Drug use: No EXAM: Deferred physical exam as visit was completed over the phone Patient is speaking in complete sentences without obvious respiratory distress or audible wheezing. Virtual visit completed using video, limited exam completed. No exam performed DATA REVIEWED: Most recent labs and imaging results. HPV TESTING Never done PAP TESTING due on 07/21/2009 MAMMOGRAM due on 2011 DILATED RETINAL EXAM due on 07/21/2021 SHINGRIX VACCINE(2 of 2) due on 08/09/2021 INFLUENZA(1) due on 10/12/2021 DIABETIC FOOT EXAM due on 11/30/2021 SPIROMETRY due on 07/31/2022 COLORECTAL CANCER SCREENING due on 07/31/2022 PNEUMOCOCCAL(2 - PCV) due on 07/31/2022 HBA1C due on 04/11/2022 LDL CHOLESTEROL due on 05/16/2022 BP CONTROLLED (<130/80) due on 07/31/2022 ANNUAL PCP TEAM CHRONIC DISEASE VISIT due on 08/23/2022 DTAP,TDAP,TD(2 - Td or Tdap) due on 11/13/2025 HEPATITIS C SCREENING Completed HIV SCREENING Completed COVID-19 VACCINE Completed URINE ALBUMIN:CREATININE RATIO Discontinued ASSESSMENT/PLAN: 1. COVID-19 - ICD9: 079.89, ICD10: U07.1 Discussed CDC guidelines. Rest and increase fluid intake. Pt preference of monoclonal antibody infusion -- on day 5 currently of symptoms. Infusion ordered -- DOE Higgins will coordinate with patient on location and scheduling. Understands needs done today. - INTERMITTENT PERIPHERAL DEVICE ([place]) - SODIUM CHLORIDE 0.9 % INJECTION SOLUTION - AMBULATORY NURSING COMMUNICATION ORDER - SODIUM CHLORIDE 0.9 % INTRAVENOUS SOLUTION - ACETAMINOPHEN 325 MG TABLET - DIPHENHYDRAMINE 50 MG/ML INJECTION SYRINGE - HYDROCORTISONE SOD SUCCINATE (PF) 100 MG/2 ML SOLUTION FOR INJECTION - EPINEPHRINE 1 MG/ML (1 ML) INJECTION SOLUTION - ONDANSETRON HCL (PF) 4 MG/2 ML INJECTION SOLUTION - ONDANSETRON HCL 4 MG TABLET - PROCHLORPERAZINE EDISYLATE 10 MG/2 ML (5 MG/ML) INJECTION SOLUTION - PROCHLORPERAZINE MALEATE 5 MG TABLET - METOCLOPRAMIDE 5 MG/ML INJECTION SOLUTION - COVID TREATMENT REFERRAL - BEBTELOVIMAB 175 MG/2 ML (87.5 MG/ML) INTRAVENOUS SOLUTION (EUA) Prescription instructions reviewed with patient as applicable. Potential red flag symptoms discussed with the patient. Reviewed appropriate action plan to take if red flag symptoms occur. Patient agreeable to treatment plan. During this patient visit I have spent approximately 15 minutes in counseling regarding treatment options, medications, and test results. Carmen Gamez APRN.[employer] Bebtelovimab Eligibility and Patient Discussion [facility] Formulary Restriction Criteria: Adult outpatients 18 years and older with all of the following: [x] Patient has positive SARS-COV-2 viral test (PCR or antigen test) and symptoms for </= 7 days [x] Not requiring hospitalization at any time for management of COVID-19 [x] Not requiring supplemental oxygen or a change in baseline supplemental oxygen [x] Meeting patient criteria as below: [] Older age (age >/= 65 years) OR [x] 18 years and older with at least one of the following: [] Cancer [] Chronic kidney disease [] Chronic liver disease [] Chronic lung diseases, including cystic fibrosis [] Dementia or other neurological conditions [x] Diabetes (type 1 or type 2) [] Disabilities, including Down syndrome and neurodevelopmental disorders [] Heart conditions [] HIV infection [] Immunocompromised state [] Mental health conditions [] Medical related technological dependence (tracheostomy, gastrostomy, or positive pressure ventilation (not related to COVID)) [x] Overweight and obesity (BMI ? 25 or BMI ? 85th percentile for their age and gender based on CDC growth charts for pediatrics) [] Physical inactivity [] [] Sickle cell disease or thalassemia [] Smoking, current or former [] Solid organ or blood stem cell transplant [] Stroke or cerebrovascular disease [] Substance use disorders [] Tuberculosis [] People from racial and ethnic minority groups Criteria above are met: Yes Date of Positive Test: 11/09/21 Date of Symptom Onset: 11/09/21 Patient received COVID vaccine: Yes I have discussed the use of the investigational therapeutic, Bebtelovimab, for the treatment of mild to moderate COVID-19 and its use under Emergency Use Authorization with the patient. The patient was informed that Bebtelovimab is not an FDA approved drug and that it is authorized for use under this Emergency Use Authorization. The patient was also informed of the significant known benefits and potential risks of Bebtelovimab, and the extent to which such potential risks and benefits are unknown. The patient was informed that there is mandatory reporting of all medication errors and serious adverse events potentially related to Bebtelovimab treatment within 7 calendar days from the onset of the event. The discussion included alternatives to receiving Bebtelovimab, including clinical trials, and potential the risks and benefits of those alternatives. The patient was provided electronically with the Fact Sheet for Patients, Parents and Caregivers . The patient was also instructed that in addition to the treatment with Bebtelovimab, he/she should continue to self-isolate and use infection control measures (e.g., wear mask, isolate, social distance, avoid sharing personal items, clean and disinfect high touch surfaces, and frequent handwashing) according to CDC guidelines. The patient stated understanding and gave verbal consent to proceeding with Bebtelovimab treatment. Carmen Gamez APRN.[employer] November 13, 2021 1:49 PM documented in this encounter [facility] 11-13-2021 Miscellaneous Notes Addended by: JAMSHID RHODES on: 11/13/2021 02:48 PM Modules accepted: Orders documented in this encounter [facility] 11-13-2021 Nurse Note Spoke to Jacque Rodriguez, confirmed patient is registered on [employer] and is prepared for their appointment. Confirmed the patient has updated medications, allergies, and questionnaires via [employer]. Informed patient if there is an issue with the connection, provider will send the patient a secure link. If provider is running late, patient should remain connected to the visit. Patient verbalized understanding. documented in this encounter [facility] 11-13-2021 Miscellaneous Notes Patient calls in to check on response from below. Notified patient Dr. Blum hadn't got a chance to review. Patient on day 5 of symptoms including cough, chest congestion, and nasal congestion. Afebrile. Patient agreeable to VV to discuss treatment. VV scheduled for 120 pm today per patient request. Melia Gage RN Patient calls to ask about receiving an infusion instead of Paxlovid for Covid +. [facility] and was [facility] but changed her mind after remembering she had been told the infusion was much safer for a diabetic. Patient asking specifically for Dr. Blum's opinion. Didn't want to schedule VV at this time. Melia Gage RN documented in this encounter [facility] 11-09-2021 History of Present illness Narrative Subjective HPI HPI Jacque Rodriguez is a 51 year old female who presents today for CC of cough, congestion. This started 1 day ago. Has tried otc medication for relief. Symptoms are worsened by nothing. Risk factors covid exposure at home. Denies cp/sob, n/v/d, ear pain, st, fever. 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 Will need LMWH or OAC prophylaxis for elective surgery. 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 Irritable bowel syndrome casued by Metformin Lateral epicondylitis of right elbow 04/07/2013 Mitral valve disorder Muscle mass 11/13/2011 Myofascial pain 01/04/2016 Pain in limb 08/29/2006 Painful orthopaedic hardware (HCC) 12/15/2013 PLANTAR Fasciitis 07/31/2005 Proteinuria Pure hypercholesterolemia Regional enteritis of small intestine with large intestine (HCC) Residual foreign body in soft tissue 01/11/2005 Snoring Sprain of ankle, unspecified site 11/01/2009 Thoracic or lumbosacral neuritis or radiculitis, unspecified 06/09/2009 Trigger thumb of left hand 11/04/2012 Type I (juvenile type) diabetes mellitus without mention of complication, uncontrolled 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 Vertigo Weakness 02/24/2016 PAST SURGICAL HISTORY Procedure Laterality Date DELIVERY ONLY , 11/12 and 10/15 , low cervical x3 EGD TRANSORAL BIOPSY SINGLE/MULTIPLE 08/03/2016 distal erosive gastritis, no retained food, no hiatal hernia ESOPHAGOGASTRODUODENOSCOPY TRANSORAL DIAGNOSTIC 02/01/2021 EXCISION GANGLION WRIST DORSAL/VOLAR PRIMARY Right 08/24/2014 Excison mass right wrist LIG/TRNSXJ FLP TUBE ABDL/VAG APPR UNI/BI 10/29/2003 Tubal ligation NEUROPLASTY &/TRANSPOSITION ULNAR NERVE ELBOW 12/21/2011 Ulnar nerve decompression left elbow NEUROPLASTY &/TRANSPOSITION ULNAR NERVE ELBOW 04/17/2012 Ulnar nerve decompression right elbow OPEN TREATMENT METATARSAL FRACTURE EACH 09/15/2012 ORIF left 5th Metatarsal PAST SURGICAL HISTORY OF 01/27/2009 Right wrist carpal tunnel surgery PAST SURGICAL HISTORY OF 03/17/2009 Left wrist carpal tunnel surgery PAST SURGICAL HISTORY OF 06/2011 left elbow cellulitis tendon surgery PAST SURGICAL HISTORY OF 12/19/2012 left trigger thumb release PAST SURGICAL HISTORY OF 01/22/2014 removal of hardware, foot. PAST SURGICAL HISTORY OF Left 11/30/2016 plantar fasciotomy w/ resection of infracalcaneal spur; Dr. Hand PAST SURGICAL HISTORY OF Right 11/14/2018 4.9lb lipoma removed left lower leg PAST SURGICAL HISTORY OF Right 06/17/2020 Arthroplasty-right 5th and 5th toes Dr. Hand DPM TNOT ELBOW LATERAL/MEDIAL DEBRIDE OPEN 05/15/2013 Right lateral epicondyle debridement TONSILLECTOMY PRIMARY/SECONDARY <AGE 12 Tonsillectomy ALLERGIES Darvocet A500 [Propoxyphene N-Acetaminophen], Mirtazapine, Penicillins, Adhesive Tape-Silicones, Etodolac, Latex, Lipitor [Atorvastatin Calcium], Lovastatin, Mobic [Meloxicam], Morphine, Percocet [Oxycodone-Acetaminophen], Propoxyphene, Simvastatin, Tramadol, Vancomycin, and Vicodin [Hydrocodone-Acetaminophen] MEDICATIONS meclizine (ANTIVERT) 25 mg tab Take 1 tablet by mouth three times daily as needed (vertigo). insulin regular human, CONCENTRATED 500 UNIT/ML, (HUMULIN R) 500 unit/mL soln USE 120 PUMP UNITS DAILY (EQUIVALENT OF 600 UNITS DAILY) DIRECTED VIA INSULIN PUMP cholecalciferol, Vitamin D3, (VITAMIN D3) 1,250 mcg (50,000 unit) cap capsule Take 1 capsule by mouth one time a week. blood sugar diagnostic (CONTOUR NEXT TEST STRIPS) test strip Use as instructed to test glucose 4 times daily; E11.42, IDDM lidocaine (ASPERCREME, LIDOCAINE,) 4 % patch Apply 1 application as directed once daily. acyclovir (ZOVIRAX) 400 mg tablet Take 1 tablet by mouth three times daily. triamcinolone acetonide (NASACORT AQ) 55 mcg nasal inhaler USE 2 SPRAYS IN EACH NOSTRIL ONCE DAILY gabapentin (NEURONTIN) 300 mg capsule Take 3 tablets by mouth twice daily (in the morning and midday), then take 4 tablets by mouth at bedtime. ibuprofen (MOTRIN) 800 mg tablet Take 1 tablet by mouth every 8 hours as needed for pain. aprepitant (EMEND) 80 mg capsule Take 1 capsule by mouth once daily. elderberry fruit (ELDERBERRY ORAL) Take 2 Doses by mouth once daily. Gummies granisetron HCl (KYTRIL) 1 mg tablet Take 1 tablet by mouth every 12 hours as needed. lansoprazole (PREVACID) 30 mg capsule Take 1 capsule by mouth twice daily. atenolol (TENORMIN) 50 mg tablet Take 1 tablet by mouth once daily. rosuvastatin (CRESTOR) 20 mg tablet Take 1 tablet by mouth once daily. linaclotide (LINZESS) 145 mcg capsule Take 1 capsule by mouth DAILY (6 AM). rizatriptan (MAXALT) 5 mg tablet TAKE 1 TABLET AT ONSET OF HEADACHE MAY REPEAT AFTER 2HRS DO NOT EXCEED 3 DOSES PER DAY famotidine (PEPCID) 40 mg tablet TAKE 1 TABLET BY MOUTH EVERYDAY AT BEDTIME loratadine-pseudoephedrine ER (ALLERGY RELIEF D12) 5-120 mg per tablet Take 1 tablet by mouth twice daily. glucagon (BAQSIMI) 3 mg/actuation nasal spray Use 1 Homeland in the nose as needed for Low Blood Sugar. May repeat after 15 minutes using a new device if there is no response. glucagon (GLUCAGON EMERGENCY KIT, HUMAN,) 1 mg solr Inject (1)one mg for insulin shock. Blood-Glucose Sensor (DEXCOM G6 SENSOR) bird 300 Units. Humulin R unit(s)-500 every 3 days promethazine (PHENERGAN) 25 mg tablet Take 1 tablet by mouth every 6 hours as needed (for nausea). Blood-Glucose Meter monitoring kit Use to test glucose daily in case Chelsy not working. DX: E11.65, insulin dependent. Insulin Pump Cartridge crtg Inject subcutaneously. glucose (DEX4 GLUCOSE) 4 gram chewable tablet Take 4 tablets by mouth as needed for Low Blood Sugar. COMPOUNDED PRESCRIPTION Diabetic shoes one pair with inserts Dx Type 1 diabetes E10.65 dicyclomine (BENTYL) 20 mg tablet TAKE 1 TABLET BY MOUTH 3 TIMES A DAY NEEDED multivitamin tablet Take 1 tablet by mouth once daily. COMPOUNDED PRESCRIPTION Shower Grab Bars DX R29.6,R42 Urine Glucose-Ketones Test (KETO-DIASTIX) strp 1 Strip as needed. levETIRAcetam (KEPPRA) 500 mg tablet Take 1 tablet by mouth twice daily. glucagon (GLUCAGEN HYPOKIT) 1 mg injection Inject 1 mg subcutaneously one time only for 1 dose. cyclobenzaprine (FLEXERIL) 10 mg tablet Take 1 tablet by mouth three times daily as needed for muscle spasm or pain. (Patient not taking: No sig reported) FLUoxetine (PROZAC) 20 mg capsule Take 1 capsule by mouth once daily. In the morning (Patient not taking: No sig reported) mometasone-formoterol (DULERA) 100-5 mcg/actuation inhaler Inhale 2 Puffs as instructed twice daily. (Patient not taking: No sig reported) Lancets lancets Test blood sugar(s) 4-6 times daily. Dx: Type 2 DM - Uncontrolled E11.65 Insulin: Yes FAMILY HISTORY Problem Relation Age of Onset Diabetes Father Lipids Father Heart Father [place] & Heart surg Seizures Father r/t TBI Alzheimer's Disease Father other (Other) Father fell and fractured hip- also perf bowel in fall Diabetes Mother not in contact Heart Maternal Grandfather Breast Cancer Maternal Grandmother Diabetes Paternal Grandmother Anesthesia Problems No Family History Social History Tobacco Use Smoking status: Former Packs/day: 0.25 Years: 5.00 Pack years: 1.25 Types: Cigarettes Quit date: 04/13/2009 Years since quittin.5 Smokeless tobacco: Never Substance Use Topics Alcohol use: Yes Comment: 2 drinks per year Drug use: No ROS Objective Blood pressure 122/80, pulse 95, temperature 37.2 C (98.9 F), temperature source Tympanic, resp. rate 18, weight 109.1 kg (240 lb 9.6 oz), last menstrual period 12/06/2015, SpO2 96 %. Physical Exam Constitutional: General: She is not in acute distress. Appearance: She is not toxic-appearing or diaphoretic. HENT: Head: Normocephalic and atraumatic. Right Ear: Hearing, tympanic membrane, ear canal and external ear normal. Left Ear: Hearing, tympanic membrane, ear canal and external ear normal. Nose: Nose normal. Mouth/Throat: Pharynx: Uvula midline. No pharyngeal swelling, oropharyngeal exudate, posterior oropharyngeal erythema or uvula swelling. Eyes: General: Lids are normal. No scleral icterus. Right eye: No discharge. Left eye: No discharge. Conjunctiva/sclera: Conjunctivae normal. Pupils: Pupils are equal, round, and reactive to light. Neck: Trachea: Trachea normal. Cardiovascular: Rate and Rhythm: Normal rate and regular rhythm. Heart sounds: Normal heart sounds. Pulmonary: Effort: Pulmonary effort is normal. Breath sounds: Normal breath sounds. Musculoskeletal: Cervical back: Normal range of motion and neck supple. Lymphadenopathy: Cervical: No cervical adenopathy. Right cervical: No superficial cervical adenopathy. Left cervical: No superficial cervical adenopathy. Skin: Findings: No rash. Neurological: Mental Status: She is alert and oriented to person, place, and time. documented in this encounter [facility] 10-31-2021 Miscellaneous Notes Pt notified. She verbalized understanding. Sergio Alba LPN Agree with need for follow up with ENT first and office visit here with [employer] okay afterwards to determine if other testing is needed Yifan Blum DO Patient calls to report left tongue and facial numbness. Nurse triage completed. Protocol recommends call EMS now. Patient declines as she was to ER yesterday for same symptoms and they wouldn't work her up for a stroke. Recommended she contact Dr. Callejas who is providing care for left ear infection d/t Patient believes symptoms could be from ear drops he prescribed or ear wick procedure done at his office once and at ER once. Patient reports Dr. Callejas should already be aware of the situation. Patient asking provider opinion on what testing needs to be done next. Care advice reviewed. Encouraged patient for any changes or worsening symptoms to go back to the ER and patient verbalizes understanding. Reason for Disposition [1] Numbness (i.e., loss of sensation) of the face, arm / hand, or leg / foot on one side of the body AND [2] sudden onset AND [3] present now Answer Assessment - Initial Assessment Questions 1. SYMPTOM: Numbness to left side of tongue and left side of face from around ear down into neck 2. ONSET: First noted Saturday but symptoms have been worsening 3. LAST NORMAL: Saturday 4. PATTERN: Constant but notices the most when she is trying to eat or drink. 5. CARDIAC SYMPTOMS: No chest pain, difficulty breathing, or palpitations. Patient reports that she did have shortness of breath yesterday before going to the ER but is resolved today. 6. NEUROLOGIC SYMPTOMS: No headache, dizziness, vision loss, double vision, changes in speech, or unsteadiness on feet. Patient reports that left eye has been watering quite a bit. 7. OTHER SYMPTOMS: NA 8.Cause: Patient thinks maybe the antibiotic ear drops that were prescribed by Dr. Callejas for left ear infection. Patient last used ear drops AM of 10/30/2021 with no change in symptoms. Patient also prescribed po antibiotic for 2 weeks but uncertain what medication is. Patient also had Ear Wick done twice to the left ear and she thought maybe that could be cause as well. Protocols used: Neurologic [id number] Attempted to contact patient and she did not answer. VM message left to call PCP office and ask for a triage nurse for further triage of symptoms. Ynes Delvalle RN Please see mychart message and triage please: Went to er yesterday left side of face tounge is numb not sure if due to ear drops can t smile correctly or talk correctly leg and arm is fine er didn t take me seriously to be tested for stroke really didn t do anything at all I m not sure if should be worried I ve had really really bad ear infection where my ear swelled shut should I be worried? Please let me know isaias ty documented in this encounter [facility] 10-31-2021 Miscellaneous Notes See TE documented in this encounter [facility] 10-20-2021 Miscellaneous Notes Yes, I do think she should get the new covid 19 booster vaccine. Please inform her Yifan Blum DO Please see pt mychart message. Turned intoTE per JG. Do you recommend I get the new booster being a diabetic? documented in this encounter [facility] 10-19-2021 Miscellaneous Notes Message turned into TE per JG Va Aguilar Ma documented in this encounter [facility] 10-19-2021 Miscellaneous Notes Noted Waiting to receive the form at [facility] Unique Fowler MD Form will be faxed for review from [facility]. Please review and sign. Needs to be faxed to [phone]. documented in this encounter [facility] 10-18-2021 History of Present illness Narrative This note was created using NoteWriter. Subjective Jacque Rodriguez is a 51 year old female. HPI Patient presents with a left knee and right wrist injury x 1 day. She slipped on a wet floor in her kitchen landing with her left leg underneath her. She has been able to walk on the leg but has been using crutches off and on. She fell on an outstretched right hand as well and her wrist is hurting. No other injuries noted. Review of Systems Constitutional: Negative. HENT: Negative. Respiratory: Negative. Cardiovascular: Negative. Gastrointestinal: Negative. Musculoskeletal: Left knee and right wrist pain All other systems reviewed and are negative. 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 Will need LMWH or OAC prophylaxis for elective surgery. 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 Irritable bowel syndrome casued by Metformin Lateral epicondylitis of right elbow 04/07/2013 Mitral valve disorder Muscle mass 11/13/2011 Myofascial pain 01/04/2016 Pain in limb 08/29/2006 Painful orthopaedic hardware (HCC) 12/15/2013 PLANTAR Fasciitis 07/31/2005 Proteinuria Pure hypercholesterolemia Regional enteritis of small intestine with large intestine (HCC) Residual foreign body in soft tissue 01/11/2005 Snoring Sprain of ankle, unspecified site 11/01/2009 Thoracic or lumbosacral neuritis or radiculitis, unspecified 06/09/2009 Trigger thumb of left hand 11/04/2012 Type I (juvenile type) diabetes mellitus without mention of complication, uncontrolled 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 12 capsule 0 blood sugar diagnostic (CONTOUR NEXT TEST STRIPS) test strip Use as instructed to test glucose 4 times daily; E11.42, IDDM 400 Each 3 lidocaine (ASPERCREME, LIDOCAINE,) 4 % patch Apply 1 application as directed once daily. 90 Patch 2 meclizine (ANTIVERT) 25 mg tab Take 1 tablet by mouth three times daily as needed (vertigo). 45 tablet 1 acyclovir (ZOVIRAX) 400 mg tablet Take 1 tablet by mouth three times daily. 21 tablet 0 levETIRAcetam (KEPPRA) 500 mg tablet Take 1 tablet by mouth twice daily. 60 tablet 2 triamcinolone acetonide (NASACORT AQ) 55 mcg nasal inhaler USE 2 SPRAYS IN EACH NOSTRIL ONCE DAILY 16.9 mL 0 gabapentin (NEURONTIN) 300 mg capsule Take 3 tablets by mouth twice daily (in the morning and midday), then take 4 tablets by mouth at bedtime. 300 capsule 1 ibuprofen (MOTRIN) 800 mg tablet Take 1 tablet by mouth every 8 hours as needed for pain. 60 tablet 1 aprepitant (EMEND) 80 mg capsule Take 1 capsule by mouth once daily. 30 capsule 1 elderberry fruit (ELDERBERRY ORAL) Take 2 Doses by mouth once daily. Gummies granisetron HCl (KYTRIL) 1 mg tablet Take 1 tablet by mouth every 12 hours as needed. 60 tablet 5 lansoprazole (PREVACID) 30 mg capsule Take 1 capsule by mouth twice daily. 180 capsule 3 atenolol (TENORMIN) 50 mg tablet Take 1 tablet by mouth once daily. 90 tablet 3 rosuvastatin (CRESTOR) 20 mg tablet Take 1 tablet by mouth once daily. 90 tablet 3 linaclotide (LINZESS) 145 mcg capsule Take 1 capsule by mouth DAILY (6 AM). 30 capsule 5 rizatriptan (MAXALT) 5 mg tablet TAKE 1 TABLET AT ONSET OF HEADACHE MAY REPEAT AFTER 2HRS DO NOT EXCEED 3 DOSES PER DAY 12 tablet 0 famotidine (PEPCID) 40 mg tablet TAKE 1 TABLET BY MOUTH EVERYDAY AT BEDTIME 30 tablet 6 loratadine-pseudoephedrine ER (ALLERGY RELIEF D12) 5-120 mg per tablet Take 1 tablet by mouth twice daily. 90 tablet 4 glucagon (BAQSIMI) 3 mg/actuation nasal spray Use 1 Homeland in the nose as needed for Low Blood Sugar. May repeat after 15 minutes using a new device if there is no response. 2 Each 1 glucagon (GLUCAGON EMERGENCY KIT, HUMAN,) 1 mg solr Inject (1)one mg for insulin shock. 1 Each 1 Blood-Glucose Sensor (DEXCOM G6 SENSOR) bird 300 Units. Humulin R unit(s)-500 every 3 days promethazine (PHENERGAN) 25 mg tablet Take 1 tablet by mouth every 6 hours as needed (for nausea). 120 tablet 6 Blood-Glucose Meter monitoring kit Use to test glucose daily in case Chelsy not working. DX: E11.65, insulin dependent. 1 Each 0 Insulin Pump Cartridge crtg Inject subcutaneously. glucose (DEX4 GLUCOSE) 4 gram chewable tablet Take 4 tablets by mouth as needed for Low Blood Sugar. 30 tablet 5 COMPOUNDED PRESCRIPTION Diabetic shoes one pair with inserts Dx Type 1 diabetes E10.65 1 Each 0 dicyclomine (BENTYL) 20 mg tablet TAKE 1 TABLET BY MOUTH 3 TIMES A DAY NEEDED 90 tablet 1 multivitamin tablet Take 1 tablet by mouth once daily. 30 tablet 11 COMPOUNDED PRESCRIPTION Shower Grab Bars DX R29.6,R42 2 Each 0 Lancets lancets Test blood sugar(s) 4-6 times daily. Dx: Type 2 DM - Uncontrolled E11.65 Insulin: Yes 100 Each 11 Urine Glucose-Ketones Test (KETO-DIASTIX) strp 1 Strip as needed. 10 Strip 3 glucagon (GLUCAGEN HYPOKIT) 1 mg injection Inject 1 mg subcutaneously one time only for 1 dose. 1 Each 3 cyclobenzaprine (FLEXERIL) 10 mg tablet Take 1 tablet by mouth three times daily as needed for muscle spasm or pain. (Patient not taking: No sig reported) 60 tablet 1 FLUoxetine (PROZAC) 20 mg capsule Take 1 capsule by mouth once daily. In the morning (Patient not taking: No sig reported) 30 capsule 2 mometasone-formoterol (DULERA) 100-5 mcg/actuation inhaler Inhale 2 Puffs as instructed twice daily. (Patient not taking: No sig reported) 1 Inhaler 5 No current facility-administered medications for this visit. PAST SURGICAL HISTORY Procedure Laterality Date DELIVERY ONLY , 11/12 and 10/15 , low cervical x3 EGD TRANSORAL BIOPSY SINGLE/MULTIPLE 08/03/2016 distal erosive gastritis, no retained food, no hiatal hernia ESOPHAGOGASTRODUODENOSCOPY TRANSORAL DIAGNOSTIC 02/01/2021 EXCISION GANGLION WRIST DORSAL/VOLAR PRIMARY Right 08/24/2014 Excison mass right wrist LIG/TRNSXJ FLP TUBE ABDL/VAG APPR UNI/BI 10/29/2003 Tubal ligation NEUROPLASTY &/TRANSPOSITION ULNAR NERVE ELBOW 12/21/2011 Ulnar nerve decompression left elbow NEUROPLASTY &/TRANSPOSITION ULNAR NERVE ELBOW 04/17/2012 Ulnar nerve decompression right elbow OPEN TREATMENT METATARSAL FRACTURE EACH 09/15/2012 ORIF left 5th Metatarsal PAST SURGICAL HISTORY OF 01/27/2009 Right wrist carpal tunnel surgery PAST SURGICAL HISTORY OF 03/17/2009 Left wrist carpal tunnel surgery PAST SURGICAL HISTORY OF 06/2011 left elbow cellulitis tendon surgery PAST SURGICAL HISTORY OF 12/19/2012 left trigger thumb release PAST SURGICAL HISTORY OF 01/22/2014 removal of hardware, foot. PAST SURGICAL HISTORY OF Left 11/30/2016 plantar fasciotomy w/ resection of infracalcaneal spur; Dr. Hand PAST SURGICAL HISTORY OF Right 11/14/2018 4.9lb lipoma removed left lower leg PAST SURGICAL HISTORY OF Right 06/17/2020 Arthroplasty-right 5th and 5th toes Dr. Hand DPM TNOT ELBOW LATERAL/MEDIAL DEBRIDE OPEN 05/15/2013 Right lateral epicondyle debridement TONSILLECTOMY PRIMARY/SECONDARY <AGE 13 Tonsillectomy FAMILY HISTORY Problem Relation Age of Onset Diabetes Father Lipids Father Heart Father [place] & Heart surg Seizures Father r/t TBI Alzheimer's Disease Father other (Other) Father fell and fractured hip- also perf bowel in fall Diabetes Mother not in contact Heart Maternal Grandfather Breast Cancer Maternal Grandmother Diabetes Paternal Grandmother Anesthesia Problems No Family History Social History Tobacco Use Smoking status: Former Packs/day: 0.25 Years: 5.00 Pack years: 1.25 Types: Cigarettes Quit date: 04/13/2009 Years since quittin.5 Smokeless tobacco: Never Substance Use Topics Alcohol use: Yes Comment: 2 drinks per year Drug use: No Objective BP 124/80 Pulse 100 Temp 37.1 C (98.7 F) Resp 16 Wt 108 kg (238 lb) LMP 12/06/2015 SpO2 96% BMI 45.72 kg/m Physical Exam Vitals reviewed. Constitutional: Appearance: Normal appearance. HENT: Head: Normocephalic and atraumatic. Musculoskeletal: Comments: Exam of the left knee reveals no redness or bruising. Mild medial swelling. Pain on palpation medially. No laxity. FROM. Able to ambulate. Exam of the right wrist reveals a small bruise to the radial wrist. FROM with pain on extension. No snuffbox ttp. Radial pulse 2+. Skin: General: Skin is warm and dry. Neurological: Mental Status: She is alert. Assessment and Plan ASSESSMENT/PLAN: 1. Left knee injury, initial encounter - ICD9: 959.7, ICD10: S89.92XA (primary diagnosis) Xrays are negative for fracture, likely strain. Rest, ice, elevate. Use crutches as needed. If not improving inn7-10 days follow up with ortho. - XR KNEE GENERAL 4V AP BOTH/PA BOTH/LAT/MERC LEFT 2. Right wrist injury, initial encounter - ICD9: 959.3, ICD10: S69.91XA Xrays negative, placed in thumb spica wrist splint. Rest, ice, elevate. If not mallorie rin 7-10 days follow up with ortho. - XR WRIST INJURY 4V PA/LAT/OBL/SCAPH RIGHT Stella Mazariegos PA-C documented in this encounter [facility] 10-17-2021 Miscellaneous Notes Requester: Patient Last Visit in Endocrinology: Provider name: Unique Fowler DO , Date 10/12/2021 Next Scheduled Appt in Endo: 01/16/2022 Last Refill: 07/21/21 Number of Refills given: 3. Requested Prescriptions Pending Prescriptions Disp Refills insulin regular human, CONCENTRATED 500 UNIT/ML, (HUMULIN R) 500 unit/mL soln 40 mL 3 Sig: USE 120 PUMP UNITS DAILY (EQUIVALENT OF 600 UNITS DAILY) DIRECTED VIA INSULIN PUMP Please review and advise. Dinora Matthews LPN documented in this encounter [facility] 10-13-[address] Gabriel Garcia told her to make appointment. She wants to discuss stimulator. Thanks Nela Lord LPN documented in this encounter [facility] 10-12-2021 Instructions Unique Fowler MD - 10/12/2021 1:44 PM EDT start vitamin D50,000 international unit(s) weekly for 12 weeks Afterwards, please start vitamin D 4000 international unit(s) daily documented in this encounter [facility] 10-12-2021 History of Present illness Narrative DIABETES FOLLOW UP SUBJECTIVE: Jacque Rodriguez is a 51 year old female who presents for a return visit regarding type 2 Diabetes- on insulin pump, hypoglycemia unawareness and gastroparesis. she was initially diagnosed with diabetes 1998. Diabetes complications include: hypertension, hyperlipidemia, nephropathy, peripheral neuropathy, gastroparesis She is still thinking about bariatric surgery. Needs clotting factor testing to be done again Reports worsening of Gastroparesis Diabetes treatment regimen: Tandem Pump settings Basal rate: 00:00=2.2 0200=2.3 0600=4.8 Bolus: 00:00=not carb counting Sensitivity 00:00= 40 Blood glucose target 00:00= 150 Insulin duration 5 hrs eye exam: > 1 year ago Flu vaccine- yes A1c: 5.9 Hypoglycemia unawareness She has CGM- DEXCOM G6 She continues to test accucheck atleast 2-3 times daily Blood glucose times and ranges (mg/dl): Currently checks sugars 2 times daily Average BG per glucometer- 144 She has CGM Average blood sugars -146 60 % in range 120-150 mg/dl) 34% above range (>150 mg/dl) 35% below range (< 120 mg/dl) Hypoglycemic episodes/treatment: No Gastroparesis- considering surgery Patient also has Hyperlipidemia she takes Crestor 20 mg daily Vitamin D deficiency She was taking vitamin D supplements but the she stopped She recently started a MVI PAST MEDICAL HISTORY Diagnosis Date Acute nonsuppurative otitis media of right ear 09/05/2015 Cervical strain 01/04/2016 Contusion of foot 08/29/2006 Depression since father 09/2009 Displaced fracture of fifth metatarsal bone of left foot 09/08/2012 Dizziness and giddiness 03/26/2011 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 Will need LMWH or OAC prophylaxis for elective surgery. 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 Irritable bowel syndrome casued by Metformin Lateral epicondylitis of right elbow 04/07/2013 Mitral valve disorder Muscle mass 11/13/2011 Myofascial pain 01/04/2016 Pain in limb 08/29/2006 Painful orthopaedic hardware (HCC) 12/15/2013 PLANTAR Fasciitis 07/31/2005 Proteinuria Pure hypercholesterolemia Regional enteritis of small intestine with large intestine (HCC) Residual foreign body in soft tissue 01/11/2005 Snoring Sprain of ankle, unspecified site 11/01/2009 Thoracic or lumbosacral neuritis or radiculitis, unspecified 06/09/2009 Trigger thumb of left hand 11/04/2012 Type I (juvenile type) diabetes mellitus without mention of complication, uncontrolled 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 Vertigo Weakness 02/24/2016 PAST SURGICAL HISTORY Procedure Laterality Date DELIVERY ONLY , 11/12 and 10/15 , low cervical x3 EGD TRANSORAL BIOPSY SINGLE/MULTIPLE 08/03/2016 distal erosive gastritis, no retained food, no hiatal hernia ESOPHAGOGASTRODUODENOSCOPY TRANSORAL DIAGNOSTIC 02/01/2021 EXCISION GANGLION WRIST DORSAL/VOLAR PRIMARY Right 08/24/2014 Excison mass right wrist LIG/TRNSXJ FLP TUBE ABDL/VAG APPR UNI/BI 10/29/2003 Tubal ligation NEUROPLASTY &/TRANSPOSITION ULNAR NERVE ELBOW 12/21/2011 Ulnar nerve decompression left elbow NEUROPLASTY &/TRANSPOSITION ULNAR NERVE ELBOW 04/17/2012 Ulnar nerve decompression right elbow OPEN TREATMENT METATARSAL FRACTURE EACH 09/15/2012 ORIF left 5th Metatarsal PAST SURGICAL HISTORY OF 01/27/2009 Right wrist carpal tunnel surgery PAST SURGICAL HISTORY OF 03/17/2009 Left wrist carpal tunnel surgery PAST SURGICAL HISTORY OF 06/2011 left elbow cellulitis tendon surgery PAST SURGICAL HISTORY OF 12/19/2012 left trigger thumb release PAST SURGICAL HISTORY OF 01/22/2014 removal of hardware, foot. PAST SURGICAL HISTORY OF Left 11/30/2016 plantar fasciotomy w/ resection of infracalcaneal spur; Dr. Hand PAST SURGICAL HISTORY OF Right 11/14/2018 4.9lb lipoma removed left lower leg PAST SURGICAL HISTORY OF Right 06/17/2020 Arthroplasty-right 5th and 5th toes Dr. Hand DPM TNOT ELBOW LATERAL/MEDIAL DEBRIDE OPEN 05/15/2013 Right lateral epicondyle debridement TONSILLECTOMY PRIMARY/SECONDARY <AGE 13 Tonsillectomy Social History Social History Narrative Goes by Jacque Zhu , , 3 sons Dad 2009. Fell, hip fracture. REVIEW OF SYSTEMS: GENERAL:No weight loss,No malaise or fevers HEENT:Negative for frequent or significant headaches, No changes in hearing or vision, no nose bleeds or other nasal problems NECK:Negative for lumps, goiter, pain and significant neck swelling RESPIRATORY: Negative for cough, hemoptysis, wheezing or shortness of breath CARDIOVASCULAR: Negative for chest pain, leg swelling or palpitations GASTROINTESTINAL: + gastroparesis, No nausea, vomiting, or persistent diarrhea GENITOURINARY: no dysuria, Polyuria, no changes in urinary frequency MUSCULOSKELETAL:no muscle aches, arthralgia NEUROLOGIC: + numbness/tingling, no Paresthesias, no headaches ENDOCRINE: Negative for cold or heat intolerance or goiter The remaining ROS are unremarkable PHYSICAL EXAM: BP 139/75 Pulse 94 Resp 16 Ht 153.7 cm (5' 0.5 ) Wt 108.1 kg (238 lb 6.4 oz) [facility] 12/06/2015 SpO2 98% BMI 45.79 kg/m General:alert and oriented X 3, no acute distress Eyes:anicteric sclera, Extraocular motions intact Neck supple, no cervical lymphadenopathy Chest: Breathing unlabored, Lungs clear to auscultation. No wheezing CV:normal, Regular rate and rhythm, no murmurs, clicks, or gallops. Abdomen: Normal abdominal sounds, non tender to palpation, obese Neuro: Gait normal. Sensation grossly intact. No focal findings Musculoskeletal: Muscular strength intact, No joint swelling Extremities + edema L> R , no deformities Skin: no rashes/erythema, dry skin noted LAB: Glucose (mg/dL) Date Value 05/16/2021 84 09/16/2020 110 Potassium (mmol/L) Date Value 05/16/2021 4.0 09/16/2020 4.1 Sodium (mmol/L) Date Value 05/16/2021 141 09/16/2020 139 Chloride (mmol/L) Date Value 05/16/2021 102 09/16/2020 103 CO2 (mmol/L) Date Value 05/16/2021 29 09/16/2020 26 Creatinine (mg/dL) Date Value 05/16/2021 0.80 09/16/2020 0.78 BUN (mg/dL) Date Value 05/16/2021 9 09/16/2020 8 Anion Gap (mmol/L) Date Value 05/16/2021 10 09/16/2020 10 Calcium (mg/dL) Date Value 09/16/2020 9.5 Calcium, Total (mg/dL) Date Value 05/16/2021 9.8 Hemoglobin A1C Date Value Ref Range Status 03/21/2020 6.9 (H) 4.3 - 5.6 % Final Comment: [place] [employer] guidelines indicate that patients with HgbA1c in the range 5.7-6.4% are at increased risk for development of diabetes, and intervention by lifestyle modification may be beneficial. HgbA1c greater or equal to 6.5% is considered diagnostic of diabetes. Hemoglobin A1C (POCT) Date Value Ref Range Status 10/12/2021 5.6 4.2 - 5.6 % Final Comment: Location:[facility], [address] [place], [address] Point of care (POC) Hemoglobin A1c (HGBA1C) testing is intended to assess glucose control and provide a management tool for patients known to have diabetes and their healthcare providers. Target HGBA1C levels may depend on specific clinical circumstances. POC HGBA1C is not intended for use as a diagnostic or screening test; laboratory-based testing should be used for diagnostic purposes. The following information is supplemental and may not be applicable to specific diabetes management situations: The POC device platform inspector provides a normal range of 4.2% to 6.5% for the HGBA1C POC test. However, the [place] [employer] guidelines indicate that patients with HGBA1C in the range of 5.7% to 6.4% are at increased risk for development of diabetes and that intervention by lifestyle modification may be beneficial. A HGBA1C level greater than or equal to 6.5% is considered diagnostic of diabetes, pending confirmatory testing. Use of HGBA1C testing to evaluate glucose control may not be appropriate for patients with hemoglobin variants or other conditions (e.g. anemia) that alter red blood cell lifespan. 03/31/2021 5.9 4.2 - 5.6 % Final Comment: Location:[facility], [address] [place] [address], [id number] Point of care (POC) Hemoglobin A1c (HGBA1C) testing is intended to assess glucose control and provide a management tool for patients known to have diabetes and their healthcare providers. Target HGBA1C levels may depend on specific clinical circumstances. POC HGBA1C is not intended for use as a diagnostic or screening test; laboratory-based testing should be used for diagnostic purposes. The following information is supplemental and may not be applicable to specific diabetes management situations: The POC device platform inspector provides a normal range of 4.2% to 6.5% for the HGBA1C POC test. However, the [place] [employer] guidelines indicate that patients with HGBA1C in the range of 5.7% to 6.4% are at increased risk for development of diabetes and that intervention by lifestyle modification may be beneficial. A HGBA1C level greater than or equal to 6.5% is considered diagnostic of diabetes, pending confirmatory testing. Use of HGBA1C testing to evaluate glucose control may not be appropriate for patients with hemoglobin variants or other conditions (e.g. anemia) that alter red blood cell lifespan. 11/30/2020 5.4 4.2 - 5.6 % Final Comment: Location:[facility], [address] [place] [address], [id number] Point of care (POC) Hemoglobin A1c (HGBA1C) testing is intended to assess glucose control and provide a management tool for patients known to have diabetes and their healthcare providers. Target HGBA1C levels may depend on specific clinical circumstances. POC HGBA1C is not intended for use as a diagnostic or screening test; laboratory-based testing should be used for diagnostic purposes. The following information is supplemental and may not be applicable to specific diabetes management situations: The POC device platform inspector provides a normal range of 4.2% to 6.5% for the HGBA1C POC test. However, the [place] [employer] guidelines indicate that patients with HGBA1C in the range of 5.7% to 6.4% are at increased risk for development of diabetes and that intervention by lifestyle modification may be beneficial. A HGBA1C level greater than or equal to 6.5% is considered diagnostic of diabetes, pending confirmatory testing. Use of HGBA1C testing to evaluate glucose control may not be appropriate for patients with hemoglobin variants or other conditions (e.g. anemia) that alter red blood cell lifespan. 08/23/2020 5.7 4.2 - 5.6 % Final Comment: Point of care (POC) Hemoglobin A1c (HGBA1C) testing is intended to assess glucose control and provide a management tool for patients known to have diabetes and their healthcare providers. Target HGBA1C levels may depend on specific clinical circumstances. POC HGBA1C is not intended for use as a diagnostic or screening test; laboratory-based testing should be used for diagnostic purposes. The following information is supplemental and may not be applicable to specific diabetes management situations: The POC device platform inspector provides a normal range of 4.2% to 6.5% for the HGBA1C POC test. However, the [place] [employer] guidelines indicate that patients with HGBA1C in the range of 5.7% to 6.4% are at increased risk for development of diabetes and that intervention by lifestyle modification may be beneficial. A HGBA1C level greater than or equal to 6.5% is considered diagnostic of diabetes, pending confirmatory testing. Use of HGBA1C testing to evaluate glucose control may not be appropriate for patients with hemoglobin variants or other conditions (e.g. anemia) that alter red blood cell lifespan. Vitamin D 25 Hydroxy (ng/mL) Date Value 05/16/2021 19.3 04/23/2020 34.1 ] Latest Reference Range & Units 05/16/21 07:23 Albumin/Creat Ratio <30 mg/g 6 ASSESSMENT/PLAN: Type 2 diabetes with complications Insulin resistance Hypoglycemia unawareness Insulin pump in place Hypertension Hyperlipidemia Vitamin D deficiency Morbid Obesity 1. Glycemic Control: A1c is with goal (5.6) Verified her insulin pump setting Reviewed and discussed her CGM data TIR < 70% but since her A1c < 6.5, will continue current insulin pump setting Severe insulin resistance requiring U-500 insulin She uses Dexcom G6 3.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 daily. Dx: Type 2 DM - Uncontrolled E11.65 Insulin: Yes 100 Each 11 Urine Glucose-Ketones Test (KETO-DIASTIX) strp 1 Strip as needed. 10 Strip 3 No current facility-administered medications for this visit. Exam: Blood pressure 124/57, pulse 95, height 149.9 cm (4' 11 ), weight 109.8 kg (242 lb 1.6 oz), last menstrual period 12/06/2015, SpO2 98 %. Body mass index is 48.9 kg/m . Station and Gait: Normal stance, normal gait. Range of Motion: normal but pain with right rotation and extension causes dizziness Motor: 5/5 throughout bilat UE, but pain limits the right triceps Sensory: Normal throughout bilat UE Reflexes: Normal throughout bilat UE and LE Pain on Palpation: base of neck and right inferior scapular border only on the RIGHT Imaging: The following study/studies were reviewed with the patient during the visit: August 09, 2021 cervical and thoracic plain radiographs. These studies show mild cervical thoracic scoliosis, appreciable reversal of cervical lordosis, disc degeneration that is essentially age-appropriate throughout, and a moderately large bone spur toward the right side at the lower thoracic region at about T10/T11 level. She is asymptomatic at the lower thoracic region Assessment/Plan: Encounter Diagnosis ICD-10-CM 1. Neck strain, subsequent encounter S16.1XXD CONSULT TO PHYSICAL THERAPY RTC: on an as-needed basis (PRN) Other/Discussion: Would consider EMG to try to evaluate further for brachial plexus issues on the right side. She may have a brachial plexus issue separately. Her symptoms and exam findings do not correlate with cervical nerve root distribution at all. She had an EMG previously for lower extremities and really does not want to undergo that again for this right now. With her BMI at nearly 49, I would still recommend she go forward with her bariatric evaluation and treatment. She may benefit from further physical therapy with postural exercises. I will place a referral for that. Time spent: 40 minutes today with this patient visit. This includes [id number] time, review of chart records regarding conservative care history, spine-pertinent imaging, and communication/care coordination with referring provider, problem-specific history-taking and counseling/education regarding treatment options. This document has been created with the use of voice recognition technology. It may contain inaccuracies: (e.g. misspellings, inaccurate syntax or word sense) that have escaped review. Madisyn Rajput Ma documented in this encounter [facility] 08-09-2021 Miscellaneous Notes Detailed message left with patient informing her letter has been taken to [facility] and ready for last picker. Va Aguilar Ma Signed, in my outbox in our office. Lizet Eugene APRN.CNP Pt calls in states she is going to need the letter For the courts signed by you. I printed the one you wrote and placed in your inbox .Please sign and I will call pt to last picker. documented in this encounter [facility] 08-09-2021 Miscellaneous Notes Spoke with pt gave information provided. She states will send this one in and see what they say. Letter sent to patient via [employer]. If she needs it signed by myself, we will need to print it and she'll need to come pick it up. Lizet Eugene APRN.DANTE Pt called in and reports she just saw provider, and she was given Toradol for her neck pain. Pt is asking if provider would write her a letter to excuse her from jury duty on this Wednesday August 11, 2021. Pt reports she sees the Spinal surgeon tomorrow, and she has to have her drive. She states whenever she bends over she feels like she is going to pass out. Pt reports provider can send the letter to her through [employer]. Please advise Pt. documented in this encounter [facility] 07-31-2021 Instructions Lizet Eugene APRN.CNP - 07/31/2021 12:50 PM EDT Talk with Dr. [place] to see if he recommends you have a colonoscopy. documented in this encounter [facility] 07-31-2021 History of Present illness Narrative Chief Complaint Patient presents with: Physical HPI Jacque Rodriguez is a 51 year old female who presents here today for Above Complaints. Today: Unsure if she will need a colonoscopy, but will check with her GI doctor. Has a wart to her left upper leg-almost completely healed. Left upper forehead wart as well. Both present for 1.5 months. Has had some lower blood sugars. Her parliamentary counsel is aware and treating. Denies any other complaints or concerns today. Past medical history, appointments, medications, allergies reviewed. 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 Will need LMWH or OAC prophylaxis for elective surgery. 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 Irritable bowel syndrome casued by Metformin Lateral epicondylitis of right elbow 04/07/2013 Mitral valve disorder Muscle mass 11/13/2011 Myofascial pain 01/04/2016 Pain in limb 08/29/2006 Painful orthopaedic hardware (HCC) 12/15/2013 PLANTAR Fasciitis 07/31/2005 Proteinuria Pure hypercholesterolemia Regional enteritis of small intestine with large intestine (HCC) Residual foreign body in soft tissue 01/11/2005 Snoring Sprain of ankle, unspecified site 11/01/2009 Thoracic or lumbosacral neuritis or radiculitis, unspecified 06/09/2009 Trigger thumb of left hand 11/04/2012 Type I (juvenile type) diabetes mellitus without mention of complication, uncontrolled 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 Vertigo Weakness 02/24/2016 Previous Surgical History PAST SURGICAL HISTORY Procedure Laterality Date DELIVERY ONLY , 11/12 and 10/15 , low cervical x3 EGD TRANSORAL BIOPSY SINGLE/MULTIPLE 08/03/2016 distal erosive gastritis, no retained food, no hiatal hernia ESOPHAGOGASTRODUODENOSCOPY TRANSORAL DIAGNOSTIC 02/01/2021 EXCISION GANGLION WRIST DORSAL/VOLAR PRIMARY Right 08/24/2014 Excison mass right wrist LIG/TRNSXJ FLP TUBE ABDL/VAG APPR UNI/BI 10/29/2003 Tubal ligation NEUROPLASTY &/TRANSPOSITION ULNAR NERVE ELBOW 12/21/2011 Ulnar nerve decompression left elbow NEUROPLASTY &/TRANSPOSITION ULNAR NERVE ELBOW 04/17/2012 Ulnar nerve decompression right elbow OPEN TREATMENT METATARSAL FRACTURE EACH 09/15/2012 ORIF left 5th Metatarsal PAST SURGICAL HISTORY OF 01/27/2009 Right wrist carpal tunnel surgery PAST SURGICAL HISTORY OF 03/17/2009 Left wrist carpal tunnel surgery PAST SURGICAL HISTORY OF 06/2011 left elbow cellulitis tendon surgery PAST SURGICAL HISTORY OF 12/19/2012 left trigger thumb release PAST SURGICAL HISTORY OF 01/22/2014 removal of hardware, foot. PAST SURGICAL HISTORY OF Left 11/30/2016 plantar fasciotomy w/ resection of infracalcaneal spur; Dr. Hand PAST SURGICAL HISTORY OF Right 11/14/2018 4.9lb lipoma removed left lower leg PAST SURGICAL HISTORY OF Right 06/17/2020 Arthroplasty-right 5th and 5th toes Dr. Hand DPM TNOT ELBOW LATERAL/MEDIAL DEBRIDE OPEN 05/15/2013 Right lateral epicondyle debridement TONSILLECTOMY PRIMARY/SECONDARY <AGE 12 Tonsillectomy Family History FAMILY HISTORY Problem Relation Age of Onset Diabetes Father Lipids Father Heart Father [place] & Heart surg Seizures Father r/t TBI Alzheimer's Disease Father other (Other) Father fell and fractured hip- also perf bowel in fall Diabetes Mother not in contact Heart Maternal Grandfather Breast Cancer Maternal Grandmother Diabetes Paternal Grandmother Anesthesia Problems No Family History Patient Allergies ALLERGIES Allergen Reactions Darvocet A500 [Prop* GI Upset Mirtazapine Unknown Penicillins Anaphylaxis Throat swells shut Adhesive Tape-Silic* Rash, Itching, Other: See Comments Peels skin off Etodolac GI Upset Latex Rash Lipitor [Atorvastat* Diarrhea Lovastatin Myalgia Muscle cramping Mobic [Meloxicam] GI Upset Morphine Vomiting Percocet [Oxycodone* Itching Propoxyphene Unknown Simvastatin GI Upset Nausea and vomiting Tramadol GI Upset Vancomycin Hives Vicodin [Hydrocodon* Other: See Comments itching and nightmares Current Medications Current Outpatient Medications on File Prior to Visit Medication Sig insulin regular human, CONCENTRATED 500 UNIT/ML, (HUMULIN R) 500 unit/mL soln USE 120 PUMP UNITS DAILY (EQUIVALENT OF 600 UNITS DAILY) DIRECTED VIA INSULIN PUMP triamcinolone acetonide (NASACORT AQ) 55 mcg nasal inhaler USE 2 SPRAYS IN EACH NOSTRIL ONCE DAILY gabapentin (NEURONTIN) 300 mg capsule Take 3 tablets by mouth twice daily (in the morning and midday), then take 4 tablets by mouth at bedtime. meclizine (ANTIVERT) 25 mg tab Take 1 tablet by mouth three times daily as needed (vertigo). ibuprofen (MOTRIN) 800 mg tablet Take 1 tablet by mouth every 8 hours as needed for pain. cyclobenzaprine (FLEXERIL) 10 mg tablet Take 1 tablet by mouth three times daily as needed for muscle spasm or pain. acyclovir (ZOVIRAX) 400 mg tablet Take 1 tablet by mouth three times daily. Cholecalciferol, Vitamin D3, (VITAMIN D) 25 mcg (1,000 unit) cap Take 1 capsule by mouth once daily. aprepitant (EMEND) 80 mg capsule Take 1 capsule by mouth once daily. elderberry fruit (ELDERBERRY ORAL) Take 2 Doses by mouth once daily. Gummies levETIRAcetam (KEPPRA) 500 mg tablet Take 1 tablet by mouth twice daily. granisetron HCl (KYTRIL) 1 mg tablet Take 1 tablet by mouth every 12 hours as needed. glucagon (GLUCAGEN HYPOKIT) 1 mg injection Inject 1 mg subcutaneously one time only for 1 dose. FLUoxetine (PROZAC) 20 mg capsule Take 1 capsule by mouth once daily. In the morning lansoprazole (PREVACID) 30 mg capsule Take 1 capsule by mouth twice daily. atenolol (TENORMIN) 50 mg tablet Take 1 tablet by mouth once daily. rosuvastatin (CRESTOR) 20 mg tablet Take 1 tablet by mouth once daily. linaclotide (LINZESS) 145 mcg capsule Take 1 capsule by mouth DAILY (6 AM). rizatriptan (MAXALT) 5 mg tablet TAKE 1 TABLET AT ONSET OF HEADACHE MAY REPEAT AFTER 2HRS DO NOT EXCEED 3 DOSES PER DAY famotidine (PEPCID) 40 mg tablet TAKE 1 TABLET BY MOUTH EVERYDAY AT BEDTIME loratadine-pseudoephedrine ER (ALLERGY RELIEF D12) 5-120 mg per tablet Take 1 tablet by mouth twice daily. glucagon (BAQSIMI) 3 mg/actuation nasal spray Use 1 Homeland in the nose as needed for Low Blood Sugar. May repeat after 15 minutes using a new device if there is no response. glucagon (GLUCAGON EMERGENCY KIT, HUMAN,) 1 mg solr Inject (1)one mg for insulin shock. Blood-Glucose Sensor (DEXCOM G6 SENSOR) bird 300 Units. Humulin R unit(s)-500 every 3 days promethazine (PHENERGAN) 25 mg tablet Take 1 tablet by mouth every 6 hours as needed (for nausea). mometasone-formoterol (DULERA) 100-5 mcg/actuation inhaler Inhale 2 Puffs as instructed twice daily. Blood-Glucose Meter monitoring kit Use to test glucose daily in case Chelsy not working. DX: E11.65, insulin dependent. Insulin Pump Cartridge crtg Inject subcutaneously. glucose (DEX4 GLUCOSE) 4 gram chewable tablet Take 4 tablets by mouth as needed for Low Blood Sugar. COMPOUNDED PRESCRIPTION Diabetic shoes one pair with inserts Dx Type 1 diabetes E10.65 dicyclomine (BENTYL) 20 mg tablet TAKE 1 TABLET BY MOUTH 3 TIMES A DAY NEEDED multivitamin tablet Take 1 tablet by mouth once daily. COMPOUNDED PRESCRIPTION Shower Grab Bars DX R29.6,R42 blood sugar diagnostic (BLOOD GLUCOSE TEST) test strip Test blood sugar(s) 4-6 times daily. Dx: Type 2 DM - Uncontrolled E11.65 Insulin: Yes Lancets lancets Test blood sugar(s) 4-6 times daily. Dx: Type 2 DM - Uncontrolled E11.65 Insulin: Yes Urine Glucose-Ketones Test (KETO-DIASTIX) strp 1 Strip as needed. HYDROcodone-acetaminophen (NORCO) 5-325 mg per tablet Take 1 tablet by mouth every 8 hours as needed for pain. (Patient not taking: Reported on 07/31/2021) No current facility-administered medications on file prior to visit. Social History Social History Tobacco Use Smoking status: Former Smoker Packs/day: 0.25 Years: 5.00 Pack years: 1.25 Types: Cigarettes Quit date: 04/13/2009 Years since quittin.3 Smokeless tobacco: Never Used Substance Use Topics Alcohol use: Yes Comment: 2 drinks per year Drug use: No Review of Symptoms REVIEW OF SYSTEMS See HPI, otherwise negative EXAM: BP 118/80 (BP Site: Left Arm, BP Position: Sitting, BP Cuff Size: Regular Adult) Pulse 94 Resp 16 Ht 157 cm (5' 1.81 ) Wt 108.4 kg (239 lb) LMP 12/06/2015 SpO2 98% BMI 43.98 kg/m General Appearance: Well appearing, alert, in no acute distress, well-hydrated, well nourished. and Morbidly obese. Skin: Skin color, texture, turgor normal, no suspicious rashes or lesions, Positives: wart to right forehead, left medial thigh. Head: Normocephalic, no masses, lesions, tenderness or abnormalities. Ears: External ears normal, canals clear. Oropharynx: Lips, mucosa, and tongue normal, teeth and gums normal, oropharynx normal. Lungs: Lungs clear to auscultation. No wheezing, rhonchi, rales.. Heart: RRR without murmur, gallop, or rubs. No ectopy. Health Maintenance List SPIROMETRY Never done HPV TESTING Never done PAP TESTING due on 07/21/2009 MAMMOGRAM due on 2011 COLORECTAL CANCER SCREENING Never done PNEUMOCOCCAL(2 - PCV) due on 10/27/2020 DILATED RETINAL EXAM due on 07/21/2021 SHINGRIX VACCINE(2 of 2) due on 08/09/2021 HBA1C due on 09/28/2021 DIABETIC FOOT EXAM due on 11/30/2021 ANNUAL PCP TEAM CHRONIC DISEASE VISIT due on 03/10/2022 LDL CHOLESTEROL due on 05/16/2022 BP CONTROLLED (<130/80) due on 06/24/2022 DTAP,TDAP,TD(2 - Td or Tdap) due on 11/13/2025 INFLUENZA Completed HEPATITIS C SCREENING Completed HIV SCREENING Completed COVID-19 VACCINE Completed URINE ALBUMIN:CREATININE RATIO Discontinued Data reviewed Previous records, office notes. ASSESSMENT/PLAN: 1. Type 2 diabetes mellitus with diabetic polyneuropathy, with long-term current use of insulin (HCC) - ICD9: 250.60, 357.2, V58.67, ICD10: E11.42, Z79.4 (primary diagnosis) Controlled. - Continue current medications - Continue insulin pump Follows with endocrinology 2. Hypoglycemia unawareness associated with type 2 diabetes mellitus (HCC) - ICD9: 250.80, 251.2, ICD10: E11.649 Controlled. - Continue current medications - Continue insulin pump Follows with endocrinology - GLUCAGEN HYPOKIT 1 MG INJECTION 3. Gastroparesis - ICD9: 536.3, ICD10: K31.[address] Rios with GI. 4. Common wart - ICD9: 078.19, ICD10: B07.8 Cryotherapy. Follow up in 2-3 weeks. 5. Screening for colon cancer - ICD9: V76.51, ICD10: Z12.[address] Rios with GI-will discuss with him. 6. Screening for cervical cancer - ICD9: V76.2, ICD10: Z12.4 Discussed need for screening. Will contact her [employer] SAW OPERATOR. Lizet Eugene APRN.DANTE documented in this encounter [facility] 07-24-2021 History of Present illness Narrative Contacted patient, scheduled her physical with Addy, 07/31 she will consult with her pcp prior to scheduling consult. Annamaria Brumfield PSS Patient due for colonoscopy , patient had capsul endoscopy in 2018. Patient is NOT cleared for open access. Please call patient and schedule office consult if wishes to proceed with colonoscopy ., documented in this encounter [facility] 07-21-2021 Miscellaneous Notes Patient called and states she will be out of insulin this weekend.Patient stated RX needs to be sent to [facility] in [place] (not [place]). Pharmacy verified in [place] Patient has been identified by name and date of : Yes Patient requesting a call when RX is approved and sent to the pharmacy. Please call patient at:[phone] Patient phones for refill(s): Pending Prescriptions Disp Refills INSULIN REGULAR HUMAN U-500 CONCENTRATE 500 UNIT/ML SUBCUTANEOUS SOLN 40 mL 3 Sig: USE 120 PUMP UNITS DAILY (EQUIVALENT OF 600 UNITS DAILY) DIRECTED VIA INSULIN PUMP SHONDA: No Date of last office visit : 03/31/2021 Date of next office visit : 10/12/2021 Last 2 Encounter Wt Readings: Date: Wt: 06/24/2021 108.4 kg (239 lb) 06/09/2021 104.3 kg (230 lb) Please advise. Ana Maria Pope documented in this encounter [facility] 07-20-2021 Miscellaneous Notes Patient has been identified by name and date of : Yes Patient phones for refill(s): Pending Prescriptions Disp Refills TRIAMCINOLONE ACETONIDE 55 MCG NASAL SPRAY AEROSOL 16.9 mL 0 Sig: USE 2 SPRAYS IN EACH NOSTRIL ONCE DAILY SHONDA: Yes Date of last office visit in primary care: 03/10/21 Last 2 Encounter Wt Readings: Date: Wt: 06/24/2021 108.4 kg (239 lb) 06/09/2021 104.3 kg (230 lb) Previous labs/tests for medication: Not applicable Please advise. Thank you. Minerva Polanco LPN documented in this encounter [facility] 07-19-2021 Miscellaneous Notes PDMP website checked and validated. All prescriptions have been APPROPRIATELY filled. No suspicious activity was identified. 07/19/2021 by Carmen Gamez APRN.CNP The following approved medication requests have been transmitted electronically. Signed Prescriptions Disp Refills gabapentin (NEURONTIN) 300 mg capsule 300 capsule 1 Sig: Take 3 tablets by mouth twice daily (in the morning and midday), then take 4 tablets by mouth at bedtime. SHONDA: No Authorizing Provider: CARMEN GAMEZ APRN.CNP Patient has been identified by name and date of : Yes Patient phones for refill(s): Pending Prescriptions Disp Refills GABAPENTIN 300 MG CAPSULE 300 capsule 1 Sig: Take 3 tablets by mouth twice daily (in the morning and midday), then take 4 tablets by mouth at bedtime. SHONDA: No Date of last office visit in primary care: [facility] 03/10/2021 No appointment scheduled Last 2 Encounter Wt Readings: Date: Wt: 06/24/2021 108.4 kg (239 lb) 06/09/2021 104.3 kg (230 lb) Please advise. Thank you. CARLTON Champion documented in this encounter [facility] 07-17-2021 Miscellaneous Notes Patient phones requesting refills as follows: Pending Prescriptions Disp Refills MECLIZINE 25 MG TABLET 45 tablet 1 Sig: Take 1 tablet by mouth three times daily as needed (vertigo). SHONDA: No ELISA-03/10/21 Labs-05/19/21 NOV-none med filled 05/25/21 Please review and advise. Lana Rodriguez LPN documented in this encounter [facility] 07-14-2021 Miscellaneous Notes Spoke to patient and walked her through how to setup her pump. She had to turn off Carb Counting in her Personal Profile and needed to adjust her Pump Settings Basal Limit to allow her to program the pump with the settings on her pump that was not maintaining charge. Patient had no additional questions after we spoke. She has my contact information if she needs additional support. documented in this encounter [facility] 06-27-2021 Miscellaneous Notes The following approved medication requests have been transmitted electronically. Signed Prescriptions Disp Refills ibuprofen (MOTRIN) 800 mg tablet 60 tablet 1 Sig: Take 1 tablet by mouth every 8 hours as needed for pain. Authorizing Provider: YIFAN BLUM cyclobenzaprine (FLEXERIL) 10 mg tablet 60 tablet 1 Sig: Take 1 tablet by mouth three times daily as needed for muscle spasm or pain. Authorizing Provider: YIFAN BLUM DO Patient requests muscle relaxer as well. Ioana Gandara MA The following approved medication requests have been transmitted electronically. Signed Prescriptions Disp Refills ibuprofen (MOTRIN) 800 mg tablet 60 tablet 1 Sig: Take 1 tablet by mouth every 8 hours as needed for pain. Authorizing Provider: YIFAN BLUM DO Patient was seen in urgent care over the weekend, provider forgot to send her rx. Patient is asking for Ibuprofen 800 mg tablet rx and muscle relaxer rx to be sent to [facility] pharmacy. Pending one rx. Please advise documented in this encounter [facility] 06-26-2021 Miscellaneous Notes Patient returned call and went over results, notes from urgent care provider with understanding. Call placed to patient to discuss xray results. Shoulder xray negative Attempted to call patient Please discuss when and if she returns call Try again on 06/26/21 if no return call. RICE therapy Follow up if symptoms persist or worsen. documented in this encounter [facility] 06-24-2021 Instructions Julia Daniels APRN.DANTE - 06/24/2021 12:38 PM EDT - RICE therapy - see patient instructions for further recommendations. - F/U with PCP in 5-7 days or before if worse. - Discussed Red Flag signs and when to go to ER. - Reviewed plan of care and DC papers with patient. Verbalized understanding. documented in this encounter [facility] 06-24-2021 History of Present illness Narrative Images from the original note were not included. Subjective Patinet came in with complaints of right shoulder pain. Elba a pop yesterday after moving a table. Patient deneis any radiating pain at this time. Patient said it is painful to lift arm. The history is provided by the patient. No foreign language stenographer was used. Pain (Shoulder Pain) Review of Systems Constitutional: Negative. Skin: Negative. Objective Physical Exam Constitutional: Appearance: Normal appearance. Pulmonary: Effort: Pulmonary effort is normal. Musculoskeletal: Arms: Comments: patient said pain is in the area marked above. Pain upon palpation. Empty can test positive. Unable to preform scratch test. Neurological: Mental Status: She is alert. 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 Will need LMWH or OAC prophylaxis for elective surgery. 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 Irritable bowel syndrome casued by Metformin Lateral epicondylitis of right elbow 04/07/2013 Mitral valve disorder Muscle mass 11/13/2011 Myofascial pain 01/04/2016 Pain in limb 08/29/2006 Painful orthopaedic hardware (HCC) 12/15/2013 PLANTAR Fasciitis 07/31/2005 Proteinuria Pure hypercholesterolemia Regional enteritis of small intestine with large intestine (HCC) Residual foreign body in soft tissue 01/11/2005 Snoring Sprain of ankle, unspecified site 11/01/2009 Thoracic or lumbosacral neuritis or radiculitis, unspecified 06/09/2009 Trigger thumb of left hand 11/04/2012 Type I (juvenile type) diabetes mellitus without mention of complication, uncontrolled 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 Vertigo Weakness 02/24/2016 PAST SURGICAL HISTORY Procedure Laterality Date DELIVERY ONLY , 11/12 and 10/15 , low cervical x3 EGD TRANSORAL BIOPSY SINGLE/MULTIPLE 08/03/2016 distal erosive gastritis, no retained food, no hiatal hernia ESOPHAGOGASTRODUODENOSCOPY TRANSORAL DIAGNOSTIC 02/01/2021 EXCISION GANGLION WRIST DORSAL/VOLAR PRIMARY Right 08/24/2014 Excison mass right wrist LIG/TRNSXJ FLP TUBE ABDL/VAG APPR UNI/BI 10/29/2003 Tubal ligation NEUROPLASTY &/TRANSPOSITION ULNAR NERVE ELBOW 12/21/2011 Ulnar nerve decompression left elbow NEUROPLASTY &/TRANSPOSITION ULNAR NERVE ELBOW 04/17/2012 Ulnar nerve decompression right elbow OPEN TREATMENT METATARSAL FRACTURE EACH 09/15/2012 ORIF left 5th Metatarsal PAST SURGICAL HISTORY OF 01/27/2009 Right wrist carpal tunnel surgery PAST SURGICAL HISTORY OF 03/17/2009 Left wrist carpal tunnel surgery PAST SURGICAL HISTORY OF 06/2011 left elbow cellulitis tendon surgery PAST SURGICAL HISTORY OF 12/19/2012 left trigger thumb release PAST SURGICAL HISTORY OF 01/22/2014 removal of hardware, foot. PAST SURGICAL HISTORY OF Left 11/30/2016 plantar fasciotomy w/ resection of infracalcaneal spur; Dr. Hand PAST SURGICAL HISTORY OF Right 11/14/2018 4.9lb lipoma removed left lower leg PAST SURGICAL HISTORY OF Right 06/17/2020 Arthroplasty-right 5th and 5th toes Dr. Hand DPM TNOT ELBOW LATERAL/MEDIAL DEBRIDE OPEN 05/15/2013 Right lateral epicondyle debridement TONSILLECTOMY PRIMARY/SECONDARY <AGE 12 Tonsillectomy ALLERGIES Darvocet A500 [Propoxyphene N-Acetaminophen], Mirtazapine, Penicillins, Adhesive Tape-Silicones, Etodolac, Latex, Lipitor [Atorvastatin Calcium], Lovastatin, Mobic [Meloxicam], Morphine, Percocet [Oxycodone-Acetaminophen], Propoxyphene, Simvastatin, Tramadol, Vancomycin, and Vicodin [Hydrocodone-Acetaminophen] MEDICATIONS acyclovir (ZOVIRAX) 400 mg tablet Take 1 tablet by mouth three times daily. Cholecalciferol, Vitamin D3, (VITAMIN D) 25 mcg (1,000 unit) cap Take 1 capsule by mouth once daily. meclizine (ANTIVERT) 25 mg tab Take 1 tablet by mouth three times daily as needed (vertigo). aprepitant (EMEND) 80 mg capsule Take 1 capsule by mouth once daily. elderberry fruit (ELDERBERRY ORAL) Take 2 Doses by mouth once daily. Gummies levETIRAcetam (KEPPRA) 500 mg tablet Take 1 tablet by mouth twice daily. granisetron HCl (KYTRIL) 1 mg tablet Take 1 tablet by mouth every 12 hours as needed. insulin regular human, CONCENTRATED 500 UNIT/ML, (HUMULIN R) 500 unit/mL soln USE 120 PUMP UNITS DAILY (EQUIVALENT OF 600 UNITS DAILY) DIRECTED VIA INSULIN PUMP FLUoxetine (PROZAC) 20 mg capsule Take 1 capsule by mouth once daily. In the morning gabapentin (NEURONTIN) 300 mg capsule Take 3 tablets by mouth twice daily (in the morning and midday), then take 4 tablets by mouth at bedtime. lansoprazole (PREVACID) 30 mg capsule Take 1 capsule by mouth twice daily. atenolol (TENORMIN) 50 mg tablet Take 1 tablet by mouth once daily. rosuvastatin (CRESTOR) 20 mg tablet Take 1 tablet by mouth once daily. linaclotide (LINZESS) 145 mcg capsule Take 1 capsule by mouth DAILY (6 AM). rizatriptan (MAXALT) 5 mg tablet TAKE 1 TABLET AT ONSET OF HEADACHE MAY REPEAT AFTER 2HRS DO NOT EXCEED 3 DOSES PER DAY famotidine (PEPCID) 40 mg tablet TAKE 1 TABLET BY MOUTH EVERYDAY AT BEDTIME loratadine-pseudoephedrine ER (ALLERGY RELIEF D12) 5-120 mg per tablet Take 1 tablet by mouth twice daily. glucagon (BAQSIMI) 3 mg/actuation nasal spray Use 1 [place] in the nose as needed for Low Blood Sugar. May repeat after 15 minutes using a new device if there is no response. glucagon (GLUCAGON EMERGENCY KIT, HUMAN,) 1 mg solr Inject (1)one mg for insulin shock. Blood-Glucose Sensor (DEXCOM G6 SENSOR) bird 300 Units. Humulin R unit(s)-500 every 3 days promethazine (PHENERGAN) 25 mg tablet Take 1 tablet by mouth every 6 hours as needed (for nausea). mometasone-formoterol (DULERA) 100-5 mcg/actuation inhaler Inhale 2 Puffs as instructed twice daily. Blood-Glucose Meter monitoring kit Use to test glucose daily in case Chelsy not working. DX: E11.65, insulin dependent. Insulin Pump Cartridge crtg Inject subcutaneously. glucose (DEX4 GLUCOSE) 4 gram chewable tablet Take 4 tablets by mouth as needed for Low Blood Sugar. COMPOUNDED PRESCRIPTION Diabetic shoes one pair with inserts Dx Type 1 diabetes E10.65 dicyclomine (BENTYL) 20 mg tablet TAKE 1 TABLET BY MOUTH 3 TIMES A DAY NEEDED multivitamin tablet Take 1 tablet by mouth once daily. COMPOUNDED PRESCRIPTION Shower Grab BarsDX R29.6,R42 blood sugar diagnostic (BLOOD GLUCOSE TEST) test strip Test blood sugar(s) 4-6 times daily. Dx: Type 2 DM - Uncontrolled E11.65 Insulin: Yes Lancets lancets Test blood sugar(s) 4-6 times daily. Dx: Type 2 DM - Uncontrolled E11.65 Insulin: Yes Urine Glucose-Ketones Test (KETO-DIASTIX) strp 1 Strip as needed. HYDROcodone-acetaminophen (NORCO) 5-325 mg per tablet Take 1 tablet by mouth every 8 hours as needed for pain. glucagon (GLUCAGEN HYPOKIT) 1 mg injection Inject 1 mg subcutaneously one time only for 1 dose. FAMILY HISTORY Problem Relation Age of Onset Diabetes Father Lipids Father Heart Father [place] & Heart surg Seizures Father r/t TBI Alzheimer's Disease Father other (Other) Father fell and fractured hip- also perf bowel in fall Diabetes Mother not in contact Heart Maternal Grandfather Breast Cancer Maternal Grandmother Diabetes Paternal Grandmother Anesthesia Problems No Family History Social History Tobacco Use Smoking status: Former Smoker Packs/day: 0.25 Years: 5.00 Pack years: 1.25 Types: Cigarettes Quit date: 04/13/2009 Years since quittin.2 Smokeless tobacco: Never Used Substance Use Topics Alcohol use: Yes Comment: 2 drinks per year Drug use: No ASSESSMENT/PLAN: 1. Acute pain of right shoulder - ICD9: 719.41, ICD10: M25.511 - XR SHOULDER GENERAL 3V OR MORE AP/TRUE AP/OTHER RIGHT Patient was placed in a sling instructed to rest and ice and use otc pain reliever. Patient will be called tomorrow with resutls. If xray negative instructed to follow up in a few days if symptoms are not getting any better. Patient was okay with this care plan. Julia Daniels APRN.DANTE documented in this encounter [facility] 06-12-2021 Miscellaneous Notes The following approved medication requests have been transmitted electronically. Signed Prescriptions Disp Refills acyclovir (ZOVIRAX) 400 mg tablet 21 tablet 0 Sig: Take 1 tablet by mouth three times daily. SHONDA: No acyclovir (ZOVIRAX) 5 % crea 2 g 1 Sig: Apply 1 application to affected area five times daily for 7 days. Use for 4 days with viral sores. Location: skin lesion area superior gluteal fold SHONDA: No Carmen Gamez APRN.DANTE Prescriptions pended, please advise. Va Aguilar Ma documented in this encounter [facility] 06-09-2021 History of Present illness Narrative Follows up from a partial fasciotomy in the volar aspect of the forearm which we performed 2 weeks ago. This resulted in herniated flexor muscles of the forearm. Examination: Well-healed incision with no evidence for continued herniation. Impression: Resolved herniation status post partial fasciotomy. Activities as tolerated follow-up as needed. At the conclusion of the office visit, the patient was asked if they had any questions regarding the diagnosis or care. Also, ample time was provided for the patient to ask any questions regarding the diagnosis therefore plan of care. All the patient's questions if asked were answered to their satisfaction. This note was partially generated using [employer] voice recognition system and as such may contain grammatical or word errors Pierre Varela MD documented in this encounter [facility] 06-06-2021 Miscellaneous Notes Patient did add she had wrist surgery 2 weeks ago but this issue has been going on for 3-4 days. Nothing else has changed. She will let us know. That is fine to try though it is a small change. See how it goes the next couple of days and notify us of continued issues. Thank you Patient called, and left a detailed VM on nurses line. State's she has been having higher BS's recently 277-300 in the evenings, she thinks this may be related to the gastroparesis. She increased her basal at 1800 from 4.7 to 4.8 units per hour. She wanted to make you aware and see if this is recommended or another option? Please review. documented in this encounter [facility] 05-26-2021 History of Present illness Narrative POST OP Chet Malik PA-C Department of Orthopaedics Orthopa[facility] [address] [place], [place] [id number] Dept: [phone] Ms. Rodriguez presents today for her 7-10 day visit S/P right wrist fascial defect. DOS: 05/19/2021 History: her pain intensity is 3/10. The patient denies swelling, warmth, discharge, drainage, fevers, chills, sweats. She reports no change in past medical & surgical history, medications, allergies, social history, family history and review of systems since last visit. Radiographs: not applicable Physical Examination: Appropriate postop appearance No evidence of erythema, warmth, discharge or drainage Incision clean/dry/intact Suture tails intact Positive axillary, musculocutaneous, median, ulna, and radial nerve function Positive distal pulses Procedure: Suture tails cut, incision examined. Steri-strips placed over incision. Plan: Progressing as expected in the immediate post operative period. Post op care discussed, all questions answered. Follow up in 2 weeks for repeat clinical evaluation with Dr. Thierry strange. Chet Malik PA-C documented in this encounter [facility] 05-25-2021 Miscellaneous Notes Patient phones requesting refills as follows: Pending Prescriptions Disp Refills MECLIZINE 25 MG TABLET 45 tablet 1 Sig: Take 1 tablet by mouth three times daily as needed (vertigo). SHONDA: No ELISA 03/10/21 NOV no upcoming appt noted Please review and advise. Dinora White LPN documented in this encounter [facility] documented as of this encounter (statuses as of 05/25/2021) [facility] History of Past illness Narrative* Problem Noted Date Resolved Date Fascial defect 05/16/2021 05/19/2021 Last Assessment & Plan: -Scheduled for surgery Hypoglycemia due to type 2 diabetes mellitus 08/23/2020 Morbid obesity due to excess calories 04/12/2016 10/12/2016 Weakness 02/24/2016 08/28/2016 Myofascial pain 01/04/2016 08/28/2016 Acute nonsuppurative otitis media of right ear 0 09/05/2015 08/28/2016 Family history of ischemic heart disease 016 08/28/2016 Mass of forearm 2015 2015 Cicatrix of skin 2015 2015 Ganglion of joint 08/24/2014 08/24/2014 Painful orthopaedic hardware 12/15/2013 Flexor tendon rupture of hand 09/15/2013 Lateral epicondylitis of right elbow 04/07/2013 08/28/2016 Trigger thumb of left hand 11/04/201208/28 Displaced fracture of fifth metatarsal bone of l eft foot 09/08/2012 08/28/2016 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2016 Muscle mass 11/13/2011 08/28/2016 Type II 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, not stated as uncontrolled(250.60) 05/03/2011 04/25/2015 Lateral epicondylitis of left elbow 05/01/2011 08/23/2011 Wound dehiscence, surgical 04/03/201108/22 Post-operative state 03/29/2011 08/23/2011 Dizziness and giddiness 03/26/2011 08/29/19 17 Hereditary and idiopathic peripheral neuropathy 12/19/2010 08/28/2016 Lateral epicondylitis of elbow 12/11/2010 0 08/23/2011 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, 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) 11/01/2009 Sprain of ankle, unspecified site 11/01/2009 08/28/2016 Thoracic or lumbosacral neuritis or radiculitis, unspecified 06/09/2009 08/28/2016 Wrist tendonitis 05/10/2009 08/23/2011 Pain in limb 08/29/2006 08/28/2016 Contusion of foot 08/29/2006 08/28/2016 PLANTAR Fasciitis 07/31/2005 08/28/2016 Residual foreign body in soft tissue 01/11/2005 08/28/2016 documented as of this encounter (statuses as of 05/26/2021) [facility] History of Past illness Narrative* Problem Noted Date Resolved Date Fascial defect 05/16/2021 05/19/2021 Last Assessment & Plan: -Scheduled for surgery Hypoglycemia due to type 2 diabetes mellitus 08/23/2020 Morbid obesity due to excess calories 04/12/2016 10/12/2016 Weakness 02/24/2016 08/28/2016 Myofascial pain 01/04/2016 08/28/2016 Acute nonsuppurative otitis media of right ear 0 09/05/2015 08/28/2016 Family history of ischemic heart disease 016 08/28/2016 Mass of forearm 2015 2015 Cicatrix of skin 2015 2015 Ganglion of joint 08/24/2014 08/24/2014 Painful orthopaedic hardware 12/15/2013 Flexor tendon rupture of hand 09/15/2013 Lateral epicondylitis of right elbow 04/07/2013 08/28/2016 Trigger thumb of left hand 11/04/201208/28 Displaced fracture of fifth metatarsal bone of l eft foot 09/08/2012 08/28/2016 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2016 Muscle mass 11/13/2011 08/28/2016 Type II 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, not stated as uncontrolled(250.60) 05/03/2011 04/25/2015 Lateral epicondylitis of left elbow 05/01/2011 08/23/2011 Wound dehiscence, surgical 04/03/201108/22 Post-operative state 03/29/2011 08/23/2011 Dizziness and giddiness 03/26/2011 08/29/19 17 Hereditary and idiopathic peripheral neuropathy 12/19/2010 08/28/2016 Lateral epicondylitis of elbow 12/11/2010 0 08/23/2011 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, 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) 11/01/2009 Sprain of ankle, unspecified site 11/01/2009 08/28/2016 Thoracic or lumbosacral neuritis or radiculitis, unspecified 06/09/2009 08/28/2016 Wrist tendonitis 05/10/2009 08/23/2011 Pain in limb 08/29/2006 08/28/2016 Contusion of foot 08/29/2006 08/28/2016 PLANTAR Fasciitis 07/31/2005 08/28/2016 Residual foreign body in soft tissue 01/11/2005 08/28/2016 documented as of this encounter (statuses as of 06/06/2021) [facility] History of Past illness Narrative* Problem Noted Date Resolved Date Fascial defect 05/16/2021 05/19/2021 Last Assessment & Plan: -Scheduled for surgery Hypoglycemia due to type 2 diabetes mellitus 08/23/2020 Morbid obesity due to excess calories 04/12/2016 10/12/2016 Weakness 02/24/2016 08/28/2016 Myofascial pain 01/04/2016 08/28/2016 Acute nonsuppurative otitis media of right ear 0 09/05/2015 08/28/2016 Family history of ischemic heart disease 016 08/28/2016 Mass of forearm 2015 2015 Cicatrix of skin 2015 2015 Ganglion of joint 08/24/2014 08/24/2014 Painful orthopaedic hardware 12/15/2013 Flexor tendon rupture of hand 09/15/2013 Lateral epicondylitis of right elbow 04/07/2013 08/28/2016 Trigger thumb of left hand 11/04/201208/28 Displaced fracture of fifth metatarsal bone of l eft foot 09/08/2012 08/28/2016 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2016 Muscle mass 11/13/2011 08/28/2016 Type II 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, not stated as uncontrolled(250.60) 05/03/2011 04/25/2015 Lateral epicondylitis of left elbow 05/01/2011 08/23/2011 Wound dehiscence, surgical 04/03/201108/22 Post-operative state 03/29/2011 08/23/2011 Dizziness and giddiness 03/26/2011 08/29/19 17 Hereditary and idiopathic peripheral neuropathy 12/19/2010 08/28/2016 Lateral epicondylitis of elbow 12/11/2010 0 08/23/2011 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, 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) 11/01/2009 Sprain of ankle, unspecified site 11/01/2009 08/28/2016 Thoracic or lumbosacral neuritis or radiculitis, unspecified 06/09/2009 08/28/2016 Wrist tendonitis 05/10/2009 08/23/2011 Pain in limb 08/29/2006 08/28/2016 Contusion of foot 08/29/2006 08/28/2016 PLANTAR Fasciitis 07/31/2005 08/28/2016 Residual foreign body in soft tissue 01/11/2005 08/28/2016 documented as of this encounter (statuses as of 06/09/2021) [facility]04-05-2022 History of Past illness Narrative* Problem Noted Date Resolved Date Fascial defect 05/16/2021 05/19/2021 Last Assessment & Plan: -Scheduled for surgery Hypoglycemia due to type 2 diabetes mellitus 02/ 08/23/2020 Morbid obesity due to excess calories 04/12/2016 10/12/2016 Weakness 02/24/2016 08/28/2016 Myofascial pain 01/04/2016 08/28/2016 Acute nonsuppurative otitis media of right ear 0 09/05/2015 08/28/2016 Family history of ischemic heart disease 016 08/28/2016 Mass of forearm 2015 2015 Cicatrix of skin 2015 2015 Ganglion of joint 08/24/2014 08/24/2014 Painful orthopaedic hardware 12/15/2013 Flexor tendon rupture of hand 09/15/2013 Lateral epicondylitis of right elbow 04/07/2013 08/28/2016 Trigger thumb of left hand 11/04/201208/28 Displaced fracture of fifth metatarsal bone of l eft foot 09/08/2012 08/28/2016 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2016 Muscle mass 11/13/2011 08/28/2016 Type II 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, not stated as uncontrolled(250.60) 05/03/2011 04/25/2015 Lateral epicondylitis of left elbow 05/01/2011 08/23/2011 Wound dehiscence, surgical 04/03/201108/22 Post-operative state 03/29/2011 08/23/2011 Dizziness and giddiness 03/26/2011 08/29/19 17 Hereditary and idiopathic peripheral neuropathy 12/19/2010 08/28/2016 Lateral epicondylitis of elbow 12/11/2010 0 08/23/2011 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, 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) 11/01/2009 Sprain of ankle, unspecified site 11/01/2009 08/28/2016 Thoracic or lumbosacral neuritis or radiculitis, unspecified 06/09/2009 08/28/2016 Wrist tendonitis 05/10/2009 08/23/2011 Pain in limb 08/29/2006 08/28/2016 Contusion of foot 08/29/2006 08/28/2016 PLANTAR Fasciitis 07/31/2005 08/28/2016 Residual foreign body in soft tissue 01/11/2005 08/28/2016 documented as of this encounter (statuses as of 06/12/2021) [facility] History of Past illness Narrative* Problem Noted Date Resolved Date Fascial defect 05/16/2021 05/19/2021 Last Assessment & Plan: -Scheduled for surgery Hypoglycemia due to type 2 diabetes mellitus 08/23/2020 Morbid obesity due to excess calories 04/12/2016 10/12/2016 Weakness 02/24/2016 08/28/2016 Myofascial pain 01/04/2016 08/28/2016 Acute nonsuppurative otitis media of right ear 0 09/05/2015 08/28/2016 Family history of ischemic heart disease 016 08/28/2016 Mass of forearm 2015 2015 Cicatrix of skin 2015 2015 Ganglion of joint 08/24/2014 08/24/2014 Painful orthopaedic hardware 12/15/2013 Flexor tendon rupture of hand 09/15/2013 Lateral epicondylitis of right elbow 04/07/2013 08/28/2016 Trigger thumb of left hand 11/04/201208/28 Displaced fracture of fifth metatarsal bone of l eft foot 09/08/2012 08/28/2016 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2016 Muscle mass 11/13/2011 08/28/2016 Type II 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, not stated as uncontrolled(250.60) 05/03/2011 04/25/2015 Lateral epicondylitis of left elbow 05/01/2011 08/23/2011 Wound dehiscence, surgical 04/03/201108/22 Post-operative state 03/29/2011 08/23/2011 Dizziness and giddiness 03/26/2011 08/29/19 17 Hereditary and idiopathic peripheral neuropathy 12/19/2010 08/28/2016 Lateral epicondylitis of elbow 12/11/2010 0 08/23/2011 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, 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) 11/01/2009 Sprain of ankle, unspecified site 11/01/2009 08/28/2016 Thoracic or lumbosacral neuritis or radiculitis, unspecified 06/09/2009 08/28/2016 Wrist tendonitis 05/10/2009 08/23/2011 Pain in limb 08/29/2006 08/28/2016 Contusion of foot 08/29/2006 08/28/2016 PLANTAR Fasciitis 07/31/2005 08/28/2016 Residual foreign body in soft tissue 01/11/2005 08/28/2016 documented as of this encounter (statuses as of 06/24/2021) [facility]04[facility]22 History of Past illness Narrative* Problem Noted Date Resolved Date Fascial defect 05/16/2021 05/19/2021 Last Assessment & Plan: -Scheduled for surgery Hypoglycemia due to type 2 diabetes mellitus 08/23/2020 Morbid obesity due to excess calories 04/12/2016 10/12/2016 Weakness 02/24/2016 08/28/2016 Myofascial pain 01/04/2016 08/28/2016 Acute nonsuppurative otitis media of right ear 0 09/05/2015 08/28/2016 Family history of ischemic heart disease 016 08/28/2016 Mass of forearm 2015 2015 Cicatrix of skin 2015 2015 Ganglion of joint 08/24/2014 08/24/2014 Painful orthopaedic hardware 12/15/2013 Flexor tendon rupture of hand 09/15/2013 Lateral epicondylitis of right elbow 04/07/2013 08/28/2016 Trigger thumb of left hand 11/04/201208/28 Displaced fracture of fifth metatarsal bone of l eft foot 09/08/2012 08/28/2016 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2016 Muscle mass 11/13/2011 08/28/2016 Type II 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, not stated as uncontrolled(250.60) 05/03/2011 04/25/2015 Lateral epicondylitis of left elbow 05/01/2011 08/23/2011 Wound dehiscence, surgical 04/03/201108/22 Post-operative state 03/29/2011 08/23/2011 Dizziness and giddiness 03/26/2011 08/29/19 17 Hereditary and idiopathic peripheral neuropathy 12/19/2010 08/28/2016 Lateral epicondylitis of elbow 12/11/2010 0 08/23/2011 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, 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) 11/01/2009 Sprain of ankle, unspecified site 11/01/2009 08/28/2016 Thoracic or lumbosacral neuritis or radiculitis, unspecified 06/09/2009 08/28/2016 Wrist tendonitis 05/10/2009 08/23/2011 Pain in limb 08/29/2006 08/28/2016 Contusion of foot 08/29/2006 08/28/2016 PLANTAR Fasciitis 07/31/2005 08/28/2016 Residual foreign body in soft tissue 01/11/2005 08/28/2016 documented as of this encounter (statuses as of 06/26/2021) [facility]04[facility] History of Past illness Narrative* Problem Noted Date Resolved Date Fascial defect 05/16/2021 05/19/2021 Last Assessment & Plan: -Scheduled for surgery Hypoglycemia due to type 2 diabetes mellitus 08/23/2020 Morbid obesity due to excess calories 04/12/2016 10/12/2016 Weakness 02/24/2016 08/28/2016 Myofascial pain 01/04/2016 08/28/2016 Acute nonsuppurative otitis media of right ear 0 09/05/2015 08/28/2016 Family history of ischemic heart disease 016 08/28/2016 Mass of forearm 2015 2015 Cicatrix of skin 2015 2015 Ganglion of joint 08/24/2014 08/24/2014 Painful orthopaedic hardware 12/15/2013 Flexor tendon rupture of hand 09/15/2013 Lateral epicondylitis of right elbow 04/07/2013 08/28/2016 Trigger thumb of left hand 11/04/201208/28 Displaced fracture of fifth metatarsal bone of l eft foot 09/08/2012 08/28/2016 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2016 Muscle mass 11/13/2011 08/28/2016 Type II 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, not stated as uncontrolled(250.60) 05/03/2011 04/25/2015 Lateral epicondylitis of left elbow 05/01/2011 08/23/2011 Wound dehiscence, surgical 04/03/201108/22 Post-operative state 03/29/2011 08/23/2011 Dizziness and giddiness 03/26/2011 08/29/19 17 Hereditary and idiopathic peripheral neuropathy 12/19/2010 08/28/2016 Lateral epicondylitis of elbow 12/11/2010 0 08/23/2011 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, 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) 11/01/2009 Sprain of ankle, unspecified site 11/01/2009 08/28/2016 Thoracic or lumbosacral neuritis or radiculitis, unspecified 06/09/2009 08/28/2016 Wrist tendonitis 05/10/2009 08/23/2011 Pain in limb 08/29/2006 08/28/2016 Contusion of foot 08/29/2006 08/28/2016 PLANTAR Fasciitis 07/31/2005 08/28/2016 Residual foreign body in soft tissue 01/11/2005 08/28/2016 documented as of this encounter (statuses as of 06/27/2021) [facility]04[facility] History of Past illness Narrative* Problem Noted Date Resolved Date Fascial defect 05/16/2021 05/19/2021 Last Assessment & Plan: -Scheduled for surgery Hypoglycemia due to type 2 diabetes mellitus 08/23/2020 Morbid obesity due to excess calories 04/12/2016 10/12/2016 Weakness 02/24/2016 08/28/2016 Myofascial pain 01/04/2016 08/28/2016 Acute nonsuppurative otitis media of right ear 0 09/05/2015 08/28/2016 Family history of ischemic heart disease 016 08/28/2016 Mass of forearm 2015 2015 Cicatrix of skin 2015 2015 Ganglion of joint 08/24/2014 08/24/2014 Painful orthopaedic hardware 12/15/2013 Flexor tendon rupture of hand 09/15/2013 Lateral epicondylitis of right elbow 04/07/2013 08/28/2016 Trigger thumb of left hand 11/04/201208/28 Displaced fracture of fifth metatarsal bone of l eft foot 09/08/2012 08/28/2016 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2016 Muscle mass 11/13/2011 08/28/2016 Type II 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, not stated as uncontrolled(250.60) 05/03/2011 04/25/2015 Lateral epicondylitis of left elbow 05/01/2011 08/23/2011 Wound dehiscence, surgical 04/03/201108/22 Post-operative state 03/29/2011 08/23/2011 Dizziness and giddiness 03/26/2011 08/29/19 17 Hereditary and idiopathic peripheral neuropathy 12/19/2010 08/28/2016 Lateral epicondylitis of elbow 12/11/2010 0 08/23/2011 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, 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) 11/01/2009 Sprain of ankle, unspecified site 11/01/2009 08/28/2016 Thoracic or lumbosacral neuritis or radiculitis, unspecified 06/09/2009 08/28/2016 Wrist tendonitis 05/10/2009 08/23/2011 Pain in limb 08/29/2006 08/28/2016 Contusion of foot 08/29/2006 08/28/2016 PLANTAR Fasciitis 07/31/2005 08/28/2016 Residual foreign body in soft tissue 01/11/2005 08/28/2016 documented as of this encounter (statuses as of 07/14/2021) [facility]04[facility] History of Past illness Narrative* Problem Noted Date Resolved Date Fascial defect 05/16/2021 05/19/2021 Last Assessment & Plan: -Scheduled for surgery Hypoglycemia due to type 2 diabetes mellitus 08/23/2020 Morbid obesity due to excess calories 04/12/2016 10/12/2016 Weakness 02/24/2016 08/28/2016 Myofascial pain 01/04/2016 08/28/2016 Acute nonsuppurative otitis media of right ear 0 09/05/2015 08/28/2016 Family history of ischemic heart disease 016 08/28/2016 Mass of forearm 2015 2015 Cicatrix of skin 2015 2015 Ganglion of joint 08/24/2014 08/24/2014 Painful orthopaedic hardware 12/15/2013 Flexor tendon rupture of hand 09/15/2013 Lateral epicondylitis of right elbow 04/07/2013 08/28/2016 Trigger thumb of left hand 11/04/201208/28 Displaced fracture of fifth metatarsal bone of l eft foot 09/08/2012 08/28/2016 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2016 Muscle mass 11/13/2011 08/28/2016 Type II 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, not stated as uncontrolled(250.60) 05/03/2011 04/25/2015 Lateral epicondylitis of left elbow 05/01/2011 08/23/2011 Wound dehiscence, surgical 04/03/201108/22 Post-operative state 03/29/2011 08/23/2011 Dizziness and giddiness 03/26/2011 08/29/19 17 Hereditary and idiopathic peripheral neuropathy 12/19/2010 08/28/2016 Lateral epicondylitis of elbow 12/11/2010 0 08/23/2011 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, 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) 11/01/2009 Sprain of ankle, unspecified site 11/01/2009 08/28/2016 Thoracic or lumbosacral neuritis or radiculitis, unspecified 06/09/2009 08/28/2016 Wrist tendonitis 05/10/2009 08/23/2011 Pain in limb 08/29/2006 08/28/2016 Contusion of foot 08/29/2006 08/28/2016 PLANTAR Fasciitis 07/31/2005 08/28/2016 Residual foreign body in soft tissue 01/11/2005 08/28/2016 documented as of this encounter (statuses as of 07/17/2021) [facility]04[facility] History of Past illness Narrative* Problem Noted Date Resolved Date Fascial defect 05/16/2021 05/19/2021 Last Assessment & Plan: -Scheduled for surgery Hypoglycemia due to type 2 diabetes mellitus 08/23/2020 Morbid obesity due to excess calories 04/12/2016 10/12/2016 Weakness 02/24/2016 08/28/2016 Myofascial pain 01/04/2016 08/28/2016 Acute nonsuppurative otitis media of right ear 0 09/05/2015 08/28/2016 Family history of ischemic heart disease 016 08/28/2016 Mass of forearm 2015 2015 Cicatrix of skin 2015 2015 Ganglion of joint 08/24/2014 08/24/2014 Painful orthopaedic hardware 12/15/2013 Flexor tendon rupture of hand 09/15/2013 Lateral epicondylitis of right elbow 04/07/2013 08/28/2016 Trigger thumb of left hand 11/04/201208/28 Displaced fracture of fifth metatarsal bone of l eft foot 09/08/2012 08/28/2016 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2016 Muscle mass 11/13/2011 08/28/2016 Type II 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, not stated as uncontrolled(250.60) 05/03/2011 04/25/2015 Lateral epicondylitis of left elbow 05/01/2011 08/23/2011 Wound dehiscence, surgical 04/03/201108/22 Post-operative state 03/29/2011 08/23/2011 Dizziness and giddiness 03/26/2011 08/29/19 17 Hereditary and idiopathic peripheral neuropathy 12/19/2010 08/28/2016 Lateral epicondylitis of elbow 12/11/2010 0 08/23/2011 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, 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) 11/01/2009 Sprain of ankle, unspecified site 11/01/2009 08/28/2016 Thoracic or lumbosacral neuritis or radiculitis, unspecified 06/09/2009 08/28/2016 Wrist tendonitis 05/10/2009 08/23/2011 Pain in limb 08/29/2006 08/28/2016 Contusion of foot 08/29/2006 08/28/2016 PLANTAR Fasciitis 07/31/2005 08/28/2016 Residual foreign body in soft tissue 01/11/2005 08/28/2016 documented as of this encounter (statuses as of 07/19/2021) [facility]04[facility] History of Past illness Narrative* Problem Noted Date Resolved Date Fascial defect 05/16/2021 05/19/2021 Last Assessment & Plan: -Scheduled for surgery Hypoglycemia due to type 2 diabetes mellitus 08/23/2020 Morbid obesity due to excess calories 04/12/2016 10/12/2016 Weakness 02/24/2016 08/28/2016 Myofascial pain 01/04/2016 08/28/2016 Acute nonsuppurative otitis media of right ear 0 09/05/2015 08/28/2016 Family history of ischemic heart disease 016 08/28/2016 Mass of forearm 2015 2015 Cicatrix of skin 2015 2015 Ganglion of joint 08/24/2014 08/24/2014 Painful orthopaedic hardware 12/15/2013 Flexor tendon rupture of hand 09/15/2013 Lateral epicondylitis of right elbow 04/07/2013 08/28/2016 Trigger thumb of left hand 11/04/201208/28 Displaced fracture of fifth metatarsal bone of l eft foot 09/08/2012 08/28/2016 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2016 Muscle mass 11/13/2011 08/28/2016 Type II 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, not stated as uncontrolled(250.60) 05/03/2011 04/25/2015 Lateral epicondylitis of left elbow 05/01/2011 08/23/2011 Wound dehiscence, surgical 04/03/201108/22 Post-operative state 03/29/2011 08/23/2011 Dizziness and giddiness 03/26/2011 08/29/19 17 Hereditary and idiopathic peripheral neuropathy 12/19/2010 08/28/2016 Lateral epicondylitis of elbow 12/11/2010 0 08/23/2011 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, 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) 11/01/2009 Sprain of ankle, unspecified site 11/01/2009 08/28/2016 Thoracic or lumbosacral neuritis or radiculitis, unspecified 06/09/2009 08/28/2016 Wrist tendonitis 05/10/2009 08/23/2011 Pain in limb 08/29/2006 08/28/2016 Contusion of foot 08/29/2006 08/28/2016 PLANTAR Fasciitis 07/31/2005 08/28/2016 Residual foreign body in soft tissue 01/11/2005 08/28/2016 documented as of this encounter (statuses as of 07/20/2021) [facility] History of Past illness Narrative* Problem Noted Date Resolved Date Fascial defect 05/16/2021 05/19/2021 Last Assessment & Plan: -Scheduled for surgery Hypoglycemia due to type 2 diabetes mellitus 08/23/2020 Morbid obesity due to excess calories 04/12/2016 10/12/2016 Weakness 02/24/2016 08/28/2016 Myofascial pain 01/04/2016 08/28/2016 Acute nonsuppurative otitis media of right ear 0 09/05/2015 08/28/2016 Family history of ischemic heart disease 016 08/28/2016 Mass of forearm 2015 2015 Cicatrix of skin 2015 2015 Ganglion of joint 08/24/2014 08/24/2014 Painful orthopaedic hardware 12/15/2013 Flexor tendon rupture of hand 09/15/2013 Lateral epicondylitis of right elbow 04/07/2013 08/28/2016 Trigger thumb of left hand 11/04/201208/28 Displaced fracture of fifth metatarsal bone of l eft foot 09/08/2012 08/28/2016 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2016 Muscle mass 11/13/2011 08/28/2016 Type II 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, not stated as uncontrolled(250.60) 05/03/2011 04/25/2015 Lateral epicondylitis of left elbow 05/01/2011 08/23/2011 Wound dehiscence, surgical 04/03/201108/22 Post-operative state 03/29/2011 08/23/2011 Dizziness and giddiness 03/26/2011 08/29/19 17 Hereditary and idiopathic peripheral neuropathy 12/19/2010 08/28/2016 Lateral epicondylitis of elbow 12/11/2010 0 08/23/2011 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, 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) 11/01/2009 Sprain of ankle, unspecified site 11/01/2009 08/28/2016 Thoracic or lumbosacral neuritis or radiculitis, unspecified 06/09/2009 08/28/2016 Wrist tendonitis 05/10/2009 08/23/2011 Pain in limb 08/29/2006 08/28/2016 Contusion of foot 08/29/2006 08/28/2016 PLANTAR Fasciitis 07/31/2005 08/28/2016 Residual foreign body in soft tissue 01/11/2005 08/28/2016 documented as of this encounter (statuses as of 07/21/2021) [facility] History of Past illness Narrative* Problem Noted Date Resolved Date Fascial defect 05/16/2021 05/19/2021 Last Assessment & Plan: -Scheduled for surgery Hypoglycemia due to type 2 diabetes mellitus 08/23/2020 Morbid obesity due to excess calories 04/12/2016 10/12/2016 Weakness 02/24/2016 08/28/2016 Myofascial pain 01/04/2016 08/28/2016 Acute nonsuppurative otitis media of right ear 0 09/05/2015 08/28/2016 Family history of ischemic heart disease 016 08/28/2016 Mass of forearm 2015 2015 Cicatrix of skin 2015 2015 Ganglion of joint 08/24/2014 08/24/2014 Painful orthopaedic hardware 12/15/2013 Flexor tendon rupture of hand 09/15/2013 Lateral epicondylitis of right elbow 04/07/2013 08/28/2016 Trigger thumb of left hand 11/04/201208/28 Displaced fracture of fifth metatarsal bone of l eft foot 09/08/2012 08/28/2016 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2016 Muscle mass 11/13/2011 08/28/2016 Type II 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, not stated as uncontrolled(250.60) 05/03/2011 04/25/2015 Lateral epicondylitis of left elbow 05/01/2011 08/23/2011 Wound dehiscence, surgical 04/03/201108/22 Post-operative state 03/29/2011 08/23/2011 Dizziness and giddiness 03/26/2011 08/29/19 17 Hereditary and idiopathic peripheral neuropathy 12/19/2010 08/28/2016 Lateral epicondylitis of elbow 12/11/2010 0 08/23/2011 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, 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) 11/01/2009 Sprain of ankle, unspecified site 11/01/2009 08/28/2016 Thoracic or lumbosacral neuritis or radiculitis, unspecified 06/09/2009 08/28/2016 Wrist tendonitis 05/10/2009 08/23/2011 Pain in limb 08/29/2006 08/28/2016 Contusion of foot 08/29/2006 08/28/2016 PLANTAR Fasciitis 07/31/2005 08/28/2016 Residual foreign body in soft tissue 01/11/2005 08/28/2016 documented as of this encounter (statuses as of 07/24/2021) [facility] History of Past illness Narrative* Problem Noted Date Resolved Date Fascial defect 05/16/2021 05/19/2021 Last Assessment & Plan: -Scheduled for surgery Hypoglycemia due to type 2 diabetes mellitus 08/23/2020 Morbid obesity due to excess calories 04/12/2016 10/12/2016 Weakness 02/24/2016 08/28/2016 Myofascial pain 01/04/2016 08/28/2016 Acute nonsuppurative otitis media of right ear 0 09/05/2015 08/28/2016 Family history of ischemic heart disease 016 08/28/2016 Mass of forearm 2015 2015 Cicatrix of skin 2015 2015 Ganglion of joint 08/24/2014 08/24/2014 Painful orthopaedic hardware 12/15/2013 Flexor tendon rupture of hand 09/15/2013 Lateral epicondylitis of right elbow 04/07/2013 08/28/2016 Trigger thumb of left hand 11/04/201208/28 Displaced fracture of fifth metatarsal bone of l eft foot 09/08/2012 08/28/2016 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2016 Muscle mass 11/13/2011 08/28/2016 Type II 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, not stated as uncontrolled(250.60) 05/03/2011 04/25/2015 Lateral epicondylitis of left elbow 05/01/2011 08/23/2011 Wound dehiscence, surgical 04/03/201108/22 Post-operative state 03/29/2011 08/23/2011 Dizziness and giddiness 03/26/2011 08/29/19 17 Hereditary and idiopathic peripheral neuropathy 12/19/2010 08/28/2016 Lateral epicondylitis of elbow 12/11/2010 0 08/23/2011 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, 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) 11/01/2009 Sprain of ankle, unspecified site 11/01/2009 08/28/2016 Thoracic or lumbosacral neuritis or radiculitis, unspecified 06/09/2009 08/28/2016 Wrist tendonitis 05/10/2009 08/23/2011 Pain in limb 08/29/2006 08/28/2016 Contusion of foot 08/29/2006 08/28/2016 PLANTAR Fasciitis 07/31/2005 08/28/2016 Residual foreign body in soft tissue 01/11/2005 08/28/2016 documented as of this encounter (statuses as of 07/31/2021) [facility] History of Past illness Narrative* Problem Noted Date Resolved Date Fascial defect 05/16/2021 05/19/2021 Last Assessment & Plan: -Scheduled for surgery Hypoglycemia due to type 2 diabetes mellitus 08/23/2020 Morbid obesity due to excess calories 04/12/2016 10/12/2016 Weakness 02/24/2016 08/28/2016 Myofascial pain 01/04/2016 08/28/2016 Acute nonsuppurative otitis media of right ear 0 09/05/2015 08/28/2016 Family history of ischemic heart disease 016 08/28/2016 Mass of forearm 2015 2015 Cicatrix of skin 2015 2015 Ganglion of joint 08/24/2014 08/24/2014 Painful orthopaedic hardware 12/15/2013 Flexor tendon rupture of hand 09/15/2013 Lateral epicondylitis of right elbow 04/07/2013 08/28/2016 Trigger thumb of left hand 11/04/201208/28 Displaced fracture of fifth metatarsal bone of l eft foot 09/08/2012 08/28/2016 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2016 Muscle mass 11/13/2011 08/28/2016 Type II 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, not stated as uncontrolled(250.60) 05/03/2011 04/25/2015 Lateral epicondylitis of left elbow 05/01/2011 08/23/2011 Wound dehiscence, surgical 04/03/201108/22 Post-operative state 03/29/2011 08/23/2011 Dizziness and giddiness 03/26/2011 08/29/19 17 Hereditary and idiopathic peripheral neuropathy 12/19/2010 08/28/2016 Lateral epicondylitis of elbow 12/11/2010 0 08/23/2011 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, 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) 11/01/2009 Sprain of ankle, unspecified site 11/01/2009 08/28/2016 Thoracic or lumbosacral neuritis or radiculitis, unspecified 06/09/2009 08/28/2016 Wrist tendonitis 05/10/2009 08/23/2011 Pain in limb 08/29/2006 08/28/2016 Contusion of foot 08/29/2006 08/28/2016 PLANTAR Fasciitis 07/31/2005 08/28/2016 Residual foreign body in soft tissue 01/11/2005 08/28/2016 documented as of this encounter (statuses as of 08/09/2021) [facility] History of Past illness Narrative* Problem Noted Date Resolved Date Fascial defect 05/16/2021 05/19/2021 Last Assessment & Plan: -Scheduled for surgery Hypoglycemia due to type 2 diabetes mellitus 08/23/2020 Morbid obesity due to excess calories 04/12/2016 10/12/2016 Weakness 02/24/2016 08/28/2016 Myofascial pain 01/04/2016 08/28/2016 Acute nonsuppurative otitis media of right ear 0 09/05/2015 08/28/2016 Family history of ischemic heart disease 016 08/28/2016 Mass of forearm 2015 2015 Cicatrix of skin 2015 2015 Ganglion of joint 08/24/2014 08/24/2014 Painful orthopaedic hardware 12/15/2013 Flexor tendon rupture of hand 09/15/2013 Lateral epicondylitis of right elbow 04/07/2013 08/28/2016 Trigger thumb of left hand 11/04/201208/28 Displaced fracture of fifth metatarsal bone of l eft foot 09/08/2012 08/28/2016 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2016 Muscle mass 11/13/2011 08/28/2016 Type II 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, not stated as uncontrolled(250.60) 05/03/2011 04/25/2015 Lateral epicondylitis of left elbow 05/01/2011 08/23/2011 Wound dehiscence, surgical 04/03/201108/22 Post-operative state 03/29/2011 08/23/2011 Dizziness and giddiness 03/26/2011 08/29/19 17 Hereditary and idiopathic peripheral neuropathy 12/19/2010 08/28/2016 Lateral epicondylitis of elbow 12/11/2010 0 08/23/2011 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, 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) 11/01/2009 Sprain of ankle, unspecified site 11/01/2009 08/28/2016 Thoracic or lumbosacral neuritis or radiculitis, unspecified 06/09/2009 08/28/2016 Wrist tendonitis 05/10/2009 08/23/2011 Pain in limb 08/29/2006 08/28/2016 Contusion of foot 08/29/2006 08/28/2016 PLANTAR Fasciitis 07/31/2005 08/28/2016 Residual foreign body in soft tissue 01/11/2005 08/28/2016 documented as of this encounter (statuses as of 08/10/2021) [facility]04-05-2022 History of Past illness Narrative* Problem Noted Date Resolved Date Fascial defect 05/16/2021 05/19/2021 Last Assessment & Plan: -Scheduled for surgery Hypoglycemia due to type 2 diabetes mellitus 08/23/2020 Morbid obesity due to excess calories 04/12/2016 10/12/2016 Weakness 02/24/2016 08/28/2016 Myofascial pain 01/04/2016 08/28/2016 Acute nonsuppurative otitis media of right ear 0 09/05/2015 08/28/2016 Family history of ischemic heart disease 016 08/28/2016 Mass of forearm 2015 2015 Cicatrix of skin 2015 2015 Ganglion of joint 08/24/2014 08/24/2014 Painful orthopaedic hardware 12/15/2013 Flexor tendon rupture of hand 09/15/2013 Lateral epicondylitis of right elbow 04/07/2013 08/28/2016 Trigger thumb of left hand 11/04/201208/28 Displaced fracture of fifth metatarsal bone of l eft foot 09/08/2012 08/28/2016 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2016 Muscle mass 11/13/2011 08/28/2016 Type II 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, not stated as uncontrolled(250.60) 05/03/2011 04/25/2015 Lateral epicondylitis of left elbow 05/01/2011 08/23/2011 Wound dehiscence, surgical 04/03/201108/22 Post-operative state 03/29/2011 08/23/2011 Dizziness and giddiness 03/26/2011 08/29/19 17 Hereditary and idiopathic peripheral neuropathy 12/19/2010 08/28/2016 Lateral epicondylitis of elbow 12/11/2010 0 08/23/2011 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, 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) 11/01/2009 Sprain of ankle, unspecified site 11/01/2009 08/28/2016 Thoracic or lumbosacral neuritis or radiculitis, unspecified 06/09/2009 08/28/2016 Wrist tendonitis 05/10/2009 08/23/2011 Pain in limb 08/29/2006 08/28/2016 Contusion of foot 08/29/2006 08/28/2016 PLANTAR Fasciitis 07/31/2005 08/28/2016 Residual foreign body in soft tissue 01/11/2005 08/28/2016 documented as of this encounter (statuses as of 08/11/2021) [facility] History of Past illness Narrative* Problem Noted Date Resolved Date Fascial defect 05/16/2021 05/19/2021 Last Assessment & Plan: -Scheduled for surgery Hypoglycemia due to type 2 diabetes mellitus 08/23/2020 Morbid obesity due to excess calories 04/12/2016 10/12/2016 Weakness 02/24/2016 08/28/2016 Myofascial pain 01/04/2016 08/28/2016 Acute nonsuppurative otitis media of right ear 0 09/05/2015 08/28/2016 Family history of ischemic heart disease 016 08/28/2016 Mass of forearm 2015 2015 Cicatrix of skin 2015 2015 Ganglion of joint 08/24/2014 08/24/2014 Painful orthopaedic hardware 12/15/2013 Flexor tendon rupture of hand 09/15/2013 Lateral epicondylitis of right elbow 04/07/2013 08/28/2016 Trigger thumb of left hand 11/04/201208/28 Displaced fracture of fifth metatarsal bone of l eft foot 09/08/2012 08/28/2016 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2016 Muscle mass 11/13/2011 08/28/2016 Type II 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, not stated as uncontrolled(250.60) 05/03/2011 04/25/2015 Lateral epicondylitis of left elbow 05/01/2011 08/23/2011 Wound dehiscence, surgical 04/03/201108/22 Post-operative state 03/29/2011 08/23/2011 Dizziness and giddiness 03/26/2011 08/29/19 17 Hereditary and idiopathic peripheral neuropathy 12/19/2010 08/28/2016 Lateral epicondylitis of elbow 12/11/2010 0 08/23/2011 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, 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) 11/01/2009 Sprain of ankle, unspecified site 11/01/2009 08/28/2016 Thoracic or lumbosacral neuritis or radiculitis, unspecified 06/09/2009 08/28/2016 Wrist tendonitis 05/10/2009 08/23/2011 Pain in limb 08/29/2006 08/28/2016 Contusion of foot 08/29/2006 08/28/2016 PLANTAR Fasciitis 07/31/2005 08/28/2016 Residual foreign body in soft tissue 01/11/2005 08/28/2016 documented as of this encounter (statuses as of 08/11/2021) [facility] History of Past illness Narrative* Problem Noted Date Resolved Date Fascial defect 05/16/2021 05/19/2021 Last Assessment & Plan: -Scheduled for surgery Hypoglycemia due to type 2 diabetes mellitus 08/23/2020 Morbid obesity due to excess calories 04/12/2016 10/12/2016 Weakness 02/24/2016 08/28/2016 Myofascial pain 01/04/2016 08/28/2016 Acute nonsuppurative otitis media of right ear 0 09/05/2015 08/28/2016 Family history of ischemic heart disease 016 08/28/2016 Mass of forearm 2015 2015 Cicatrix of skin 2015 2015 Ganglion of joint 08/24/2014 08/24/2014 Painful orthopaedic hardware 12/15/2013 Flexor tendon rupture of hand 09/15/2013 Lateral epicondylitis of right elbow 04/07/2013 08/28/2016 Trigger thumb of left hand 11/04/201208/28 Displaced fracture of fifth metatarsal bone of l eft foot 09/08/2012 08/28/2016 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2016 Muscle mass 11/13/2011 08/28/2016 Type II 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, not stated as uncontrolled(250.60) 05/03/2011 04/25/2015 Lateral epicondylitis of left elbow 05/01/2011 08/23/2011 Wound dehiscence, surgical 04/03/201108/22 Post-operative state 03/29/2011 08/23/2011 Dizziness and giddiness 03/26/2011 08/29/19 17 Hereditary and idiopathic peripheral neuropathy 12/19/2010 08/28/2016 Lateral epicondylitis of elbow 12/11/2010 0 08/23/2011 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, 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) 11/01/2009 Sprain of ankle, unspecified site 11/01/2009 08/28/2016 Thoracic or lumbosacral neuritis or radiculitis, unspecified 06/09/2009 08/28/2016 Wrist tendonitis 05/10/2009 08/23/2011 Pain in limb 08/29/2006 08/28/2016 Contusion of foot 08/29/2006 08/28/2016 PLANTAR Fasciitis 07/31/2005 08/28/2016 Residual foreign body in soft tissue 01/11/2005 08/28/2016 documented as of this encounter (statuses as of 08/14/2021) [facility] History of Past illness Narrative* Problem Noted Date Resolved Date Fascial defect 05/16/2021 05/19/2021 Last Assessment & Plan: -Scheduled for surgery Hypoglycemia due to type 2 diabetes mellitus 08/23/2020 Morbid obesity due to excess calories 04/12/2016 10/12/2016 Weakness 02/24/2016 08/28/2016 Myofascial pain 01/04/2016 08/28/2016 Acute nonsuppurative otitis media of right ear 0 09/05/2015 08/28/2016 Family history of ischemic heart disease 016 08/28/2016 Mass of forearm 2015 2015 Cicatrix of skin 2015 2015 Ganglion of joint 08/24/2014 08/24/2014 Painful orthopaedic hardware 12/15/2013 Flexor tendon rupture of hand 09/15/2013 Lateral epicondylitis of right elbow 04/07/2013 08/28/2016 Trigger thumb of left hand 11/04/201208/28 Displaced fracture of fifth metatarsal bone of l eft foot 09/08/2012 08/28/2016 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2016 Muscle mass 11/13/2011 08/28/2016 Type II 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, not stated as uncontrolled(250.60) 05/03/2011 04/25/2015 Lateral epicondylitis of left elbow 05/01/2011 08/23/2011 Wound dehiscence, surgical 04/03/201108/22 Post-operative state 03/29/2011 08/23/2011 Dizziness and giddiness 03/26/2011 08/29/19 17 Hereditary and idiopathic peripheral neuropathy 12/19/2010 08/28/2016 Lateral epicondylitis of elbow 12/11/2010 0 08/23/2011 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, 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) 11/01/2009 Sprain of ankle, unspecified site 11/01/2009 08/28/2016 Thoracic or lumbosacral neuritis or radiculitis, unspecified 06/09/2009 08/28/2016 Wrist tendonitis 05/10/2009 08/23/2011 Pain in limb 08/29/2006 08/28/2016 Contusion of foot 08/29/2006 08/28/2016 PLANTAR Fasciitis 07/31/2005 08/28/2016 Residual foreign body in soft tissue 01/11/2005 08/28/2016 documented as of this encounter (statuses as of 08/14/2021) [facility] History of Past illness Narrative* Problem Noted Date Resolved Date Fascial defect 05/16/2021 05/19/2021 Last Assessment & Plan: -Scheduled for surgery Hypoglycemia due to type 2 diabetes mellitus 08/23/2020 Morbid obesity due to excess calories 04/12/2016 10/12/2016 Weakness 02/24/2016 08/28/2016 Myofascial pain 01/04/2016 08/28/2016 Acute nonsuppurative otitis media of right ear 0 09/05/2015 08/28/2016 Family history of ischemic heart disease 016 08/28/2016 Mass of forearm 2015 2015 Cicatrix of skin 2015 2015 Ganglion of joint 08/24/2014 08/24/2014 Painful orthopaedic hardware 12/15/2013 Flexor tendon rupture of hand 09/15/2013 Lateral epicondylitis of right elbow 04/07/2013 08/28/2016 Trigger thumb of left hand 11/04/201208/28 Displaced fracture of fifth metatarsal bone of l eft foot 09/08/2012 08/28/2016 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2016 Muscle mass 11/13/2011 08/28/2016 Type II 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, not stated as uncontrolled(250.60) 05/03/2011 04/25/2015 Lateral epicondylitis of left elbow 05/01/2011 08/23/2011 Wound dehiscence, surgical 04/03/201108/22 Post-operative state 03/29/2011 08/23/2011 Dizziness and giddiness 03/26/2011 08/29/19 17 Hereditary and idiopathic peripheral neuropathy 12/19/2010 08/28/2016 Lateral epicondylitis of elbow 12/11/2010 0 08/23/2011 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, 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) 11/01/2009 Sprain of ankle, unspecified site 11/01/2009 08/28/2016 Thoracic or lumbosacral neuritis or radiculitis, unspecified 06/09/2009 08/28/2016 Wrist tendonitis 05/10/2009 08/23/2011 Pain in limb 08/29/2006 08/28/2016 Contusion of foot 08/29/2006 08/28/2016 PLANTAR Fasciitis 07/31/2005 08/28/2016 Residual foreign body in soft tissue 01/11/2005 08/28/2016 documented as of this encounter (statuses as of 08/16/2021) [facility] History of Past illness Narrative* Problem Noted Date Resolved Date Fascial defect 05/16/2021 05/19/2021 Last Assessment & Plan: -Scheduled for surgery Hypoglycemia due to type 2 diabetes mellitus 08/23/2020 Morbid obesity due to excess calories 04/12/2016 10/12/2016 Weakness 02/24/2016 08/28/2016 Myofascial pain 01/04/2016 08/28/2016 Acute nonsuppurative otitis media of right ear 0 09/05/2015 08/28/2016 Family history of ischemic heart disease 016 08/28/2016 Mass of forearm 2015 2015 Cicatrix of skin 2015 2015 Ganglion of joint 08/24/2014 08/24/2014 Painful orthopaedic hardware 12/15/2013 Flexor tendon rupture of hand 09/15/2013 Lateral epicondylitis of right elbow 04/07/2013 08/28/2016 Trigger thumb of left hand 11/04/201208/28 Displaced fracture of fifth metatarsal bone of l eft foot 09/08/2012 08/28/2016 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2016 Muscle mass 11/13/2011 08/28/2016 Type II 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, not stated as uncontrolled(250.60) 05/03/2011 04/25/2015 Lateral epicondylitis of left elbow 05/01/2011 08/23/2011 Wound dehiscence, surgical 04/03/201108/22 Post-operative state 03/29/2011 08/23/2011 Dizziness and giddiness 03/26/2011 08/29/19 17 Hereditary and idiopathic peripheral neuropathy 12/19/2010 08/28/2016 Lateral epicondylitis of elbow 12/11/2010 0 08/23/2011 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, 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) 11/01/2009 Sprain of ankle, unspecified site 11/01/2009 08/28/2016 Thoracic or lumbosacral neuritis or radiculitis, unspecified 06/09/2009 08/28/2016 Wrist tendonitis 05/10/2009 08/23/2011 Pain in limb 08/29/2006 08/28/2016 Contusion of foot 08/29/2006 08/28/2016 PLANTAR Fasciitis 07/31/2005 08/28/2016 Residual foreign body in soft tissue 01/11/2005 08/28/2016 documented as of this encounter (statuses as of 08/16/2021) [facility] History of Past illness Narrative* Problem Noted Date Resolved Date Fascial defect 05/16/2021 05/19/2021 Last Assessment & Plan: -Scheduled for surgery Hypoglycemia due to type 2 diabetes mellitus 08/23/2020 Morbid obesity due to excess calories 04/12/2016 10/12/2016 Weakness 02/24/2016 08/28/2016 Myofascial pain 01/04/2016 08/28/2016 Acute nonsuppurative otitis media of right ear 0 09/05/2015 08/28/2016 Family history of ischemic heart disease 016 08/28/2016 Mass of forearm 2015 2015 Cicatrix of skin 2015 2015 Ganglion of joint 08/24/2014 08/24/2014 Painful orthopaedic hardware 12/15/2013 Flexor tendon rupture of hand 09/15/2013 Lateral epicondylitis of right elbow 04/07/2013 08/28/2016 Trigger thumb of left hand 11/04/201208/28 Displaced fracture of fifth metatarsal bone of l eft foot 09/08/2012 08/28/2016 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2016 Muscle mass 11/13/2011 08/28/2016 Type II 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, not stated as uncontrolled(250.60) 05/03/2011 04/25/2015 Lateral epicondylitis of left elbow 05/01/2011 08/23/2011 Wound dehiscence, surgical 04/03/201108/22 Post-operative state 03/29/2011 08/23/2011 Dizziness and giddiness 03/26/2011 08/29/19 17 Hereditary and idiopathic peripheral neuropathy 12/19/2010 08/28/2016 Lateral epicondylitis of elbow 12/11/2010 0 08/23/2011 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, 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) 11/01/2009 Sprain of ankle, unspecified site 11/01/2009 08/28/2016 Thoracic or lumbosacral neuritis or radiculitis, unspecified 06/09/2009 08/28/2016 Wrist tendonitis 05/10/2009 08/23/2011 Pain in limb 08/29/2006 08/28/2016 Contusion of foot 08/29/2006 08/28/2016 PLANTAR Fasciitis 07/31/2005 08/28/2016 Residual foreign body in soft tissue 01/11/2005 08/28/2016 documented as of this encounter (statuses as of 09/06/2021) [facility] History of Past illness Narrative* Problem Noted Date Resolved Date Fascial defect 05/16/2021 05/19/2021 Last Assessment & Plan: -Scheduled for surgery Hypoglycemia due to type 2 diabetes mellitus 08/23/2020 Morbid obesity due to excess calories 04/12/2016 10/12/2016 Weakness 02/24/2016 08/28/2016 Myofascial pain 01/04/2016 08/28/2016 Acute nonsuppurative otitis media of right ear 0 09/05/2015 08/28/2016 Family history of ischemic heart disease 016 08/28/2016 Mass of forearm 2015 2015 Cicatrix of skin 2015 2015 Ganglion of joint 08/24/2014 08/24/2014 Painful orthopaedic hardware 12/15/2013 Flexor tendon rupture of hand 09/15/2013 Lateral epicondylitis of right elbow 04/07/2013 08/28/2016 Trigger thumb of left hand 11/04/201208/28 Displaced fracture of fifth metatarsal bone of l eft foot 09/08/2012 08/28/2016 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2016 Muscle mass 11/13/2011 08/28/2016 Type II 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, not stated as uncontrolled(250.60) 05/03/2011 04/25/2015 Lateral epicondylitis of left elbow 05/01/2011 08/23/2011 Wound dehiscence, surgical 04/03/201108/22 Post-operative state 03/29/2011 08/23/2011 Dizziness and giddiness 03/26/2011 08/29/19 17 Hereditary and idiopathic peripheral neuropathy 12/19/2010 08/28/2016 Lateral epicondylitis of elbow 12/11/2010 0 08/23/2011 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, 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) 11/01/2009 Sprain of ankle, unspecified site 11/01/2009 08/28/2016 Thoracic or lumbosacral neuritis or radiculitis, unspecified 06/09/2009 08/28/2016 Wrist tendonitis 05/10/2009 08/23/2011 Pain in limb 08/29/2006 08/28/2016 Contusion of foot 08/29/2006 08/28/2016 PLANTAR Fasciitis 07/31/2005 08/28/2016 Residual foreign body in soft tissue 01/11/2005 08/28/2016 documented as of this encounter (statuses as of 09/08/2021) [facility] History of Past illness Narrative* Problem Noted Date Resolved Date Fascial defect 05/16/2021 05/19/2021 Last Assessment & Plan: -Scheduled for surgery Hypoglycemia due to type 2 diabetes mellitus 08/23/2020 Morbid obesity due to excess calories 04/12/2016 10/12/2016 Weakness 02/24/2016 08/28/2016 Myofascial pain 01/04/2016 08/28/2016 Acute nonsuppurative otitis media of right ear 0 09/05/2015 08/28/2016 Family history of ischemic heart disease 016 08/28/2016 Mass of forearm 2015 2015 Cicatrix of skin 2015 2015 Ganglion of joint 08/24/2014 08/24/2014 Painful orthopaedic hardware 12/15/2013 Flexor tendon rupture of hand 09/15/2013 Lateral epicondylitis of right elbow 04/07/2013 08/28/2016 Trigger thumb of left hand 11/04/201208/28 Displaced fracture of fifth metatarsal bone of l eft foot 09/08/2012 08/28/2016 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2016 Muscle mass 11/13/2011 08/28/2016 Type II 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, not stated as uncontrolled(250.60) 05/03/2011 04/25/2015 Lateral epicondylitis of left elbow 05/01/2011 08/23/2011 Wound dehiscence, surgical 04/03/201108/22 Post-operative state 03/29/2011 08/23/2011 Dizziness and giddiness 03/26/2011 08/29/19 17 Hereditary and idiopathic peripheral neuropathy 12/19/2010 08/28/2016 Lateral epicondylitis of elbow 12/11/2010 0 08/23/2011 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, 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) 11/01/2009 Sprain of ankle, unspecified site 11/01/2009 08/28/2016 Thoracic or lumbosacral neuritis or radiculitis, unspecified 06/09/2009 08/28/2016 Wrist tendonitis 05/10/2009 08/23/2011 Pain in limb 08/29/2006 08/28/2016 Contusion of foot 08/29/2006 08/28/2016 PLANTAR Fasciitis 07/31/2005 08/28/2016 Residual foreign body in soft tissue 01/11/2005 08/28/2016 documented as of this encounter (statuses as of 09/08/2021) [facility] History of Past illness Narrative* Problem Noted Date Resolved Date Fascial defect 05/16/2021 05/19/2021 Last Assessment & Plan: -Scheduled for surgery Hypoglycemia due to type 2 diabetes mellitus 08/23/2020 Morbid obesity due to excess calories 04/12/2016 10/12/2016 Weakness 02/24/2016 08/28/2016 Myofascial pain 01/04/2016 08/28/2016 Acute nonsuppurative otitis media of right ear 0 09/05/2015 08/28/2016 Family history of ischemic heart disease 016 08/28/2016 Mass of forearm 2015 2015 Cicatrix of skin 2015 2015 Ganglion of joint 08/24/2014 08/24/2014 Painful orthopaedic hardware 12/15/2013 Flexor tendon rupture of hand 09/15/2013 Lateral epicondylitis of right elbow 04/07/2013 08/28/2016 Trigger thumb of left hand 11/04/201208/28 Displaced fracture of fifth metatarsal bone of l eft foot 09/08/2012 08/28/2016 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2016 Muscle mass 11/13/2011 08/28/2016 Type II 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, not stated as uncontrolled(250.60) 05/03/2011 04/25/2015 Lateral epicondylitis of left elbow 05/01/2011 08/23/2011 Wound dehiscence, surgical 04/03/201108/22 Post-operative state 03/29/2011 08/23/2011 Dizziness and giddiness 03/26/2011 08/29/19 17 Hereditary and idiopathic peripheral neuropathy 12/19/2010 08/28/2016 Lateral epicondylitis of elbow 12/11/2010 0 08/23/2011 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, 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) 11/01/2009 Sprain of ankle, unspecified site 11/01/2009 08/28/2016 Thoracic or lumbosacral neuritis or radiculitis, unspecified 06/09/2009 08/28/2016 Wrist tendonitis 05/10/2009 08/23/2011 Pain in limb 08/29/2006 08/28/2016 Contusion of foot 08/29/2006 08/28/2016 PLANTAR Fasciitis 07/31/2005 08/28/2016 Residual foreign body in soft tissue 01/11/2005 08/28/2016 documented as of this encounter (statuses as of 09/12/2021) [facility] History of Past illness Narrative* Problem Noted Date Resolved Date Fascial defect 05/16/2021 05/19/2021 Last Assessment & Plan: -Scheduled for surgery Hypoglycemia due to type 2 diabetes mellitus 08/23/2020 Morbid obesity due to excess calories 04/12/2016 10/12/2016 Weakness 02/24/2016 08/28/2016 Myofascial pain 01/04/2016 08/28/2016 Acute nonsuppurative otitis media of right ear 0 09/05/2015 08/28/2016 Family history of ischemic heart disease 016 08/28/2016 Mass of forearm 2015 2015 Cicatrix of skin 2015 2015 Ganglion of joint 08/24/2014 08/24/2014 Painful orthopaedic hardware 12/15/2013 Flexor tendon rupture of hand 09/15/2013 Lateral epicondylitis of right elbow 04/07/2013 08/28/2016 Trigger thumb of left hand 11/04/201208/28 Displaced fracture of fifth metatarsal bone of l eft foot 09/08/2012 08/28/2016 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2016 Muscle mass 11/13/2011 08/28/2016 Type II 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, not stated as uncontrolled(250.60) 05/03/2011 04/25/2015 Lateral epicondylitis of left elbow 05/01/2011 08/23/2011 Wound dehiscence, surgical 04/03/201108/22 Post-operative state 03/29/2011 08/23/2011 Dizziness and giddiness 03/26/2011 08/29/19 17 Hereditary and idiopathic peripheral neuropathy 12/19/2010 08/28/2016 Lateral epicondylitis of elbow 12/11/2010 0 08/23/2011 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, 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) 11/01/2009 Sprain of ankle, unspecified site 11/01/2009 08/28/2016 Thoracic or lumbosacral neuritis or radiculitis, unspecified 06/09/2009 08/28/2016 Wrist tendonitis 05/10/2009 08/23/2011 Pain in limb 08/29/2006 08/28/2016 Contusion of foot 08/29/2006 08/28/2016 PLANTAR Fasciitis 07/31/2005 08/28/2016 Residual foreign body in soft tissue 01/11/2005 08/28/2016 documented as of this encounter (statuses as of 09/20/2021) [facility] History of Past illness Narrative* Problem Noted Date Resolved Date Fascial defect 05/16/2021 05/19/2021 Last Assessment & Plan: -Scheduled for surgery Hypoglycemia due to type 2 diabetes mellitus 08/23/2020 Morbid obesity due to excess calories 04/12/2016 10/12/2016 Weakness 02/24/2016 08/28/2016 Myofascial pain 01/04/2016 08/28/2016 Acute nonsuppurative otitis media of right ear 0 09/05/2015 08/28/2016 Family history of ischemic heart disease 016 08/28/2016 Mass of forearm 2015 2015 Cicatrix of skin 2015 2015 Ganglion of joint 08/24/2014 08/24/2014 Painful orthopaedic hardware 12/15/2013 Flexor tendon rupture of hand 09/15/2013 Lateral epicondylitis of right elbow 04/07/2013 08/28/2016 Trigger thumb of left hand 11/04/201208/28 Displaced fracture of fifth metatarsal bone of l eft foot 09/08/2012 08/28/2016 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2016 Muscle mass 11/13/2011 08/28/2016 Type II 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, not stated as uncontrolled(250.60) 05/03/2011 04/25/2015 Lateral epicondylitis of left elbow 05/01/2011 08/23/2011 Wound dehiscence, surgical 04/03/201108/22 Post-operative state 03/29/2011 08/23/2011 Dizziness and giddiness 03/26/2011 08/29/19 17 Hereditary and idiopathic peripheral neuropathy 12/19/2010 08/28/2016 Lateral epicondylitis of elbow 12/11/2010 0 08/23/2011 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, 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) 11/01/2009 Sprain of ankle, unspecified site 11/01/2009 08/28/2016 Thoracic or lumbosacral neuritis or radiculitis, unspecified 06/09/2009 08/28/2016 Wrist tendonitis 05/10/2009 08/23/2011 Pain in limb 08/29/2006 08/28/2016 Contusion of foot 08/29/2006 08/28/2016 PLANTAR Fasciitis 07/31/2005 08/28/2016 Residual foreign body in soft tissue 01/11/2005 08/28/2016 documented as of this encounter (statuses as of 10/06/2021) [facility]04-05-2022 History of Past illness Narrative* Problem Noted Date Resolved Date Fascial defect 05/16/2021 05/19/2021 Last Assessment & Plan: -Scheduled for surgery Hypoglycemia due to type 2 diabetes mellitus 08/23/2020 Morbid obesity due to excess calories 04/12/2016 10/12/2016 Weakness 02/24/2016 08/28/2016 Myofascial pain 01/04/2016 08/28/2016 Acute nonsuppurative otitis media of right ear 0 09/05/2015 08/28/2016 Family history of ischemic heart disease 016 08/28/2016 Mass of forearm 2015 2015 Cicatrix of skin 2015 2015 Ganglion of joint 08/24/2014 08/24/2014 Painful orthopaedic hardware 12/15/2013 Flexor tendon rupture of hand 09/15/2013 Lateral epicondylitis of right elbow 04/07/2013 08/28/2016 Trigger thumb of left hand 11/04/201208/28 Displaced fracture of fifth metatarsal bone of l eft foot 09/08/2012 08/28/2016 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2016 Muscle mass 11/13/2011 08/28/2016 Type II 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, not stated as uncontrolled(250.60) 05/03/2011 04/25/2015 Lateral epicondylitis of left elbow 05/01/2011 08/23/2011 Wound dehiscence, surgical 04/03/201108/22 Post-operative state 03/29/2011 08/23/2011 Dizziness and giddiness 03/26/2011 08/29/19 17 Hereditary and idiopathic peripheral neuropathy 12/19/2010 08/28/2016 Lateral epicondylitis of elbow 12/11/2010 0 08/23/2011 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, 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) 11/01/2009 Sprain of ankle, unspecified site 11/01/2009 08/28/2016 Thoracic or lumbosacral neuritis or radiculitis, unspecified 06/09/2009 08/28/2016 Wrist tendonitis 05/10/2009 08/23/2011 Pain in limb 08/29/2006 08/28/2016 Contusion of foot 08/29/2006 08/28/2016 PLANTAR Fasciitis 07/31/2005 08/28/2016 Residual foreign body in soft tissue 01/11/2005 08/28/2016 documented as of this encounter (statuses as of 10/12/2021) [facility] History of Past illness Narrative* Problem Noted Date Resolved Date Fascial defect 05/16/2021 05/19/2021 Last Assessment & Plan: -Scheduled for surgery Hypoglycemia due to type 2 diabetes mellitus 08/23/2020 Morbid obesity due to excess calories 04/12/2016 10/12/2016 Weakness 02/24/2016 08/28/2016 Myofascial pain 01/04/2016 08/28/2016 Acute nonsuppurative otitis media of right ear 0 09/05/2015 08/28/2016 Family history of ischemic heart disease 016 08/28/2016 Mass of forearm 2015 2015 Cicatrix of skin 2015 2015 Ganglion of joint 08/24/2014 08/24/2014 Painful orthopaedic hardware 12/15/2013 Flexor tendon rupture of hand 09/15/2013 Lateral epicondylitis of right elbow 04/07/2013 08/28/2016 Trigger thumb of left hand 11/04/201208/28 Displaced fracture of fifth metatarsal bone of l eft foot 09/08/2012 08/28/2016 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2016 Muscle mass 11/13/2011 08/28/2016 Type II 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, not stated as uncontrolled(250.60) 05/03/2011 04/25/2015 Lateral epicondylitis of left elbow 05/01/2011 08/23/2011 Wound dehiscence, surgical 04/03/201108/22 Post-operative state 03/29/2011 08/23/2011 Dizziness and giddiness 03/26/2011 08/29/19 17 Hereditary and idiopathic peripheral neuropathy 12/19/2010 08/28/2016 Lateral epicondylitis of elbow 12/11/2010 0 08/23/2011 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, 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) 11/01/2009 Sprain of ankle, unspecified site 11/01/2009 08/28/2016 Thoracic or lumbosacral neuritis or radiculitis, unspecified 06/09/2009 08/28/2016 Wrist tendonitis 05/10/2009 08/23/2011 Pain in limb 08/29/2006 08/28/2016 Contusion of foot 08/29/2006 08/28/2016 PLANTAR Fasciitis 07/31/2005 08/28/2016 Residual foreign body in soft tissue 01/11/2005 08/28/2016 documented as of this encounter (statuses as of 10/13/2021) [facility] History of Past illness Narrative* Problem Noted Date Resolved Date Fascial defect 05/16/2021 05/19/2021 Last Assessment & Plan: -Scheduled for surgery Hypoglycemia due to type 2 diabetes mellitus 08/23/2020 Morbid obesity due to excess calories 04/12/2016 10/12/2016 Weakness 02/24/2016 08/28/2016 Myofascial pain 01/04/2016 08/28/2016 Acute nonsuppurative otitis media of right ear 0 09/05/2015 08/28/2016 Family history of ischemic heart disease 016 08/28/2016 Mass of forearm 2015 2015 Cicatrix of skin 2015 2015 Ganglion of joint 08/24/2014 08/24/2014 Painful orthopaedic hardware 12/15/2013 Flexor tendon rupture of hand 09/15/2013 Lateral epicondylitis of right elbow 04/07/2013 08/28/2016 Trigger thumb of left hand 11/04/201208/28 Displaced fracture of fifth metatarsal bone of l eft foot 09/08/2012 08/28/2016 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2016 Muscle mass 11/13/2011 08/28/2016 Type II 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, not stated as uncontrolled(250.60) 05/03/2011 04/25/2015 Lateral epicondylitis of left elbow 05/01/2011 08/23/2011 Wound dehiscence, surgical 04/03/201108/22 Post-operative state 03/29/2011 08/23/2011 Dizziness and giddiness 03/26/2011 08/29/19 17 Hereditary and idiopathic peripheral neuropathy 12/19/2010 08/28/2016 Lateral epicondylitis of elbow 12/11/2010 0 08/23/2011 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, 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) 11/01/2009 Sprain of ankle, unspecified site 11/01/2009 08/28/2016 Thoracic or lumbosacral neuritis or radiculitis, unspecified 06/09/2009 08/28/2016 Wrist tendonitis 05/10/2009 08/23/2011 Pain in limb 08/29/2006 08/28/2016 Contusion of foot 08/29/2006 08/28/2016 PLANTAR Fasciitis 07/31/2005 08/28/2016 Residual foreign body in soft tissue 01/11/2005 08/28/2016 documented as of this encounter (statuses as of 10/17/2021) [facility] History of Past illness Narrative* Problem Noted Date Resolved Date Fascial defect 05/16/2021 05/19/2021 Last Assessment & Plan: -Scheduled for surgery Hypoglycemia due to type 2 diabetes mellitus 08/23/2020 Morbid obesity due to excess calories 04/12/2016 10/12/2016 Weakness 02/24/2016 08/28/2016 Myofascial pain 01/04/2016 08/28/2016 Acute nonsuppurative otitis media of right ear 0 09/05/2015 08/28/2016 Family history of ischemic heart disease 016 08/28/2016 Mass of forearm 2015 2015 Cicatrix of skin 2015 2015 Ganglion of joint 08/24/2014 08/24/2014 Painful orthopaedic hardware 12/15/2013 Flexor tendon rupture of hand 09/15/2013 Lateral epicondylitis of right elbow 04/07/2013 08/28/2016 Trigger thumb of left hand 11/04/201208/28 Displaced fracture of fifth metatarsal bone of l eft foot 09/08/2012 08/28/2016 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2016 Muscle mass 11/13/2011 08/28/2016 Type II 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, not stated as uncontrolled(250.60) 05/03/2011 04/25/2015 Lateral epicondylitis of left elbow 05/01/2011 08/23/2011 Wound dehiscence, surgical 04/03/201108/22 Post-operative state 03/29/2011 08/23/2011 Dizziness and giddiness 03/26/2011 08/29/19 17 Hereditary and idiopathic peripheral neuropathy 12/19/2010 08/28/2016 Lateral epicondylitis of elbow 12/11/2010 0 08/23/2011 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, 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) 11/01/2009 Sprain of ankle, unspecified site 11/01/2009 08/28/2016 Thoracic or lumbosacral neuritis or radiculitis, unspecified 06/09/2009 08/28/2016 Wrist tendonitis 05/10/2009 08/23/2011 Pain in limb 08/29/2006 08/28/2016 Contusion of foot 08/29/2006 08/28/2016 PLANTAR Fasciitis 07/31/2005 08/28/2016 Residual foreign body in soft tissue 01/11/2005 08/28/2016 documented as of this encounter (statuses as of 10/18/2021) [facility] History of Past illness Narrative* Problem Noted Date Resolved Date Fascial defect 05/16/2021 05/19/2021 Last Assessment & Plan: -Scheduled for surgery Hypoglycemia due to type 2 diabetes mellitus 08/23/2020 Morbid obesity due to excess calories 04/12/2016 10/12/2016 Weakness 02/24/2016 08/28/2016 Myofascial pain 01/04/2016 08/28/2016 Acute nonsuppurative otitis media of right ear 0 09/05/2015 08/28/2016 Family history of ischemic heart disease 016 08/28/2016 Mass of forearm 2015 2015 Cicatrix of skin 2015 2015 Ganglion of joint 08/24/2014 08/24/2014 Painful orthopaedic hardware 12/15/2013 Flexor tendon rupture of hand 09/15/2013 Lateral epicondylitis of right elbow 04/07/2013 08/28/2016 Trigger thumb of left hand 11/04/201208/28 Displaced fracture of fifth metatarsal bone of l eft foot 09/08/2012 08/28/2016 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2016 Muscle mass 11/13/2011 08/28/2016 Type II 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, not stated as uncontrolled(250.60) 05/03/2011 04/25/2015 Lateral epicondylitis of left elbow 05/01/2011 08/23/2011 Wound dehiscence, surgical 04/03/201108/22 Post-operative state 03/29/2011 08/23/2011 Dizziness and giddiness 03/26/2011 08/29/19 17 Hereditary and idiopathic peripheral neuropathy 12/19/2010 08/28/2016 Lateral epicondylitis of elbow 12/11/2010 0 08/23/2011 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, 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) 11/01/2009 Sprain of ankle, unspecified site 11/01/2009 08/28/2016 Thoracic or lumbosacral neuritis or radiculitis, unspecified 06/09/2009 08/28/2016 Wrist tendonitis 05/10/2009 08/23/2011 Pain in limb 08/29/2006 08/28/2016 Contusion of foot 08/29/2006 08/28/2016 PLANTAR Fasciitis 07/31/2005 08/28/2016 Residual foreign body in soft tissue 01/11/2005 08/28/2016 documented as of this encounter (statuses as of 10/19/2021) [facility] History of Past illness Narrative* Problem Noted Date Resolved Date Fascial defect 05/16/2021 05/19/2021 Last Assessment & Plan: -Scheduled for surgery Hypoglycemia due to type 2 diabetes mellitus 08/23/2020 Morbid obesity due to excess calories 04/12/2016 10/12/2016 Weakness 02/24/2016 08/28/2016 Myofascial pain 01/04/2016 08/28/2016 Acute nonsuppurative otitis media of right ear 0 09/05/2015 08/28/2016 Family history of ischemic heart disease 016 08/28/2016 Mass of forearm 2015 2015 Cicatrix of skin 2015 2015 Ganglion of joint 08/24/2014 08/24/2014 Painful orthopaedic hardware 12/15/2013 Flexor tendon rupture of hand 09/15/2013 Lateral epicondylitis of right elbow 04/07/2013 08/28/2016 Trigger thumb of left hand 11/04/201208/28 Displaced fracture of fifth metatarsal bone of l eft foot 09/08/2012 08/28/2016 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2016 Muscle mass 11/13/2011 08/28/2016 Type II 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, not stated as uncontrolled(250.60) 05/03/2011 04/25/2015 Lateral epicondylitis of left elbow 05/01/2011 08/23/2011 Wound dehiscence, surgical 04/03/201108/22 Post-operative state 03/29/2011 08/23/2011 Dizziness and giddiness 03/26/2011 08/29/19 17 Hereditary and idiopathic peripheral neuropathy 12/19/2010 08/28/2016 Lateral epicondylitis of elbow 12/11/2010 0 08/23/2011 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, 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) 11/01/2009 Sprain of ankle, unspecified site 11/01/2009 08/28/2016 Thoracic or lumbosacral neuritis or radiculitis, unspecified 06/09/2009 08/28/2016 Wrist tendonitis 05/10/2009 08/23/2011 Pain in limb 08/29/2006 08/28/2016 Contusion of foot 08/29/2006 08/28/2016 PLANTAR Fasciitis 07/31/2005 08/28/2016 Residual foreign body in soft tissue 01/11/2005 08/28/2016 documented as of this encounter (statuses as of 10/19/2021) [facility] History of Past illness Narrative* Problem Noted Date Resolved Date Fascial defect 05/16/2021 05/19/2021 Last Assessment & Plan: -Scheduled for surgery Hypoglycemia due to type 2 diabetes mellitus 08/23/2020 Morbid obesity due to excess calories 04/12/2016 10/12/2016 Weakness 02/24/2016 08/28/2016 Myofascial pain 01/04/2016 08/28/2016 Acute nonsuppurative otitis media of right ear 0 09/05/2015 08/28/2016 Family history of ischemic heart disease 016 08/28/2016 Mass of forearm 2015 2015 Cicatrix of skin 2015 2015 Ganglion of joint 08/24/2014 08/24/2014 Painful orthopaedic hardware 12/15/2013 Flexor tendon rupture of hand 09/15/2013 Lateral epicondylitis of right elbow 04/07/2013 08/28/2016 Trigger thumb of left hand 11/04/201208/28 Displaced fracture of fifth metatarsal bone of l eft foot 09/08/2012 08/28/2016 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2016 Muscle mass 11/13/2011 08/28/2016 Type II 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, not stated as uncontrolled(250.60) 05/03/2011 04/25/2015 Lateral epicondylitis of left elbow 05/01/2011 08/23/2011 Wound dehiscence, surgical 04/03/201108/22 Post-operative state 03/29/2011 08/23/2011 Dizziness and giddiness 03/26/2011 08/29/19 17 Hereditary and idiopathic peripheral neuropathy 12/19/2010 08/28/2016 Lateral epicondylitis of elbow 12/11/2010 0 08/23/2011 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, 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) 11/01/2009 Sprain of ankle, unspecified site 11/01/2009 08/28/2016 Thoracic or lumbosacral neuritis or radiculitis, unspecified 06/09/2009 08/28/2016 Wrist tendonitis 05/10/2009 08/23/2011 Pain in limb 08/29/2006 08/28/2016 Contusion of foot 08/29/2006 08/28/2016 PLANTAR Fasciitis 07/31/2005 08/28/2016 Residual foreign body in soft tissue 01/11/2005 08/28/2016 documented as of this encounter (statuses as of 10/20/2021) [facility] History of Past illness Narrative* Problem Noted Date Resolved Date Fascial defect 05/16/2021 05/19/2021 Last Assessment & Plan: -Scheduled for surgery Hypoglycemia due to type 2 diabetes mellitus 08/23/2020 Morbid obesity due to excess calories 04/12/2016 10/12/2016 Weakness 02/24/2016 08/28/2016 Myofascial pain 01/04/2016 08/28/2016 Acute nonsuppurative otitis media of right ear 0 09/05/2015 08/28/2016 Family history of ischemic heart disease 016 08/28/2016 Mass of forearm 2015 2015 Cicatrix of skin 2015 2015 Ganglion of joint 08/24/2014 08/24/2014 Painful orthopaedic hardware 12/15/2013 Flexor tendon rupture of hand 09/15/2013 Lateral epicondylitis of right elbow 04/07/2013 08/28/2016 Trigger thumb of left hand 11/04/201208/28 Displaced fracture of fifth metatarsal bone of l eft foot 09/08/2012 08/28/2016 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2016 Muscle mass 11/13/2011 08/28/2016 Type II 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, not stated as uncontrolled(250.60) 05/03/2011 04/25/2015 Lateral epicondylitis of left elbow 05/01/2011 08/23/2011 Wound dehiscence, surgical 04/03/201108/22 Post-operative state 03/29/2011 08/23/2011 Dizziness and giddiness 03/26/2011 08/29/19 17 Hereditary and idiopathic peripheral neuropathy 12/19/2010 08/28/2016 Lateral epicondylitis of elbow 12/11/2010 0 08/23/2011 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, 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) 11/01/2009 Sprain of ankle, unspecified site 11/01/2009 08/28/2016 Thoracic or lumbosacral neuritis or radiculitis, unspecified 06/09/2009 08/28/2016 Wrist tendonitis 05/10/2009 08/23/2011 Pain in limb 08/29/2006 08/28/2016 Contusion of foot 08/29/2006 08/28/2016 PLANTAR Fasciitis 07/31/2005 08/28/2016 Residual foreign body in soft tissue 01/11/2005 08/28/2016 documented as of this encounter (statuses as of 10/21/2021) [facility] History of Past illness Narrative* Problem Noted Date Resolved Date Fascial defect 05/16/2021 05/19/2021 Last Assessment & Plan: -Scheduled for surgery Hypoglycemia due to type 2 diabetes mellitus 08/23/2020 Morbid obesity due to excess calories 04/12/2016 10/12/2016 Weakness 02/24/2016 08/28/2016 Myofascial pain 01/04/2016 08/28/2016 Acute nonsuppurative otitis media of right ear 0 09/05/2015 08/28/2016 Family history of ischemic heart disease 016 08/28/2016 Mass of forearm 2015 2015 Cicatrix of skin 2015 2015 Ganglion of joint 08/24/2014 08/24/2014 Painful orthopaedic hardware 12/15/2013 Flexor tendon rupture of hand 09/15/2013 Lateral epicondylitis of right elbow 04/07/2013 08/28/2016 Trigger thumb of left hand 11/04/201208/28 Displaced fracture of fifth metatarsal bone of l eft foot 09/08/2012 08/28/2016 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2016 Muscle mass 11/13/2011 08/28/2016 Type II 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, not stated as uncontrolled(250.60) 05/03/2011 04/25/2015 Lateral epicondylitis of left elbow 05/01/2011 08/23/2011 Wound dehiscence, surgical 04/03/201108/22 Post-operative state 03/29/2011 08/23/2011 Dizziness and giddiness 03/26/2011 08/29/19 17 Hereditary and idiopathic peripheral neuropathy 12/19/2010 08/28/2016 Lateral epicondylitis of elbow 12/11/2010 0 08/23/2011 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, 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) 11/01/2009 Sprain of ankle, unspecified site 11/01/2009 08/28/2016 Thoracic or lumbosacral neuritis or radiculitis, unspecified 06/09/2009 08/28/2016 Wrist tendonitis 05/10/2009 08/23/2011 Pain in limb 08/29/2006 08/28/2016 Contusion of foot 08/29/2006 08/28/2016 PLANTAR Fasciitis 07/31/2005 08/28/2016 Residual foreign body in soft tissue 01/11/2005 08/28/2016 documented as of this encounter (statuses as of 10/31/2021) [facility] History of Past illness Narrative* Problem Noted Date Resolved Date Fascial defect 05/16/2021 05/19/2021 Last Assessment & Plan: -Scheduled for surgery Hypoglycemia due to type 2 diabetes mellitus 08/23/2020 Morbid obesity due to excess calories 04/12/2016 10/12/2016 Weakness 02/24/2016 08/28/2016 Myofascial pain 01/04/2016 08/28/2016 Acute nonsuppurative otitis media of right ear 0 09/05/2015 08/28/2016 Family history of ischemic heart disease 016 08/28/2016 Mass of forearm 2015 2015 Cicatrix of skin 2015 2015 Ganglion of joint 08/24/2014 08/24/2014 Painful orthopaedic hardware 12/15/2013 Flexor tendon rupture of hand 09/15/2013 Lateral epicondylitis of right elbow 04/07/2013 08/28/2016 Trigger thumb of left hand 11/04/201208/28 Displaced fracture of fifth metatarsal bone of l eft foot 09/08/2012 08/28/2016 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2016 Muscle mass 11/13/2011 08/28/2016 Type II 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, not stated as uncontrolled(250.60) 05/03/2011 04/25/2015 Lateral epicondylitis of left elbow 05/01/2011 08/23/2011 Wound dehiscence, surgical 04/03/201108/22 Post-operative state 03/29/2011 08/23/2011 Dizziness and giddiness 03/26/2011 08/29/19 17 Hereditary and idiopathic peripheral neuropathy 12/19/2010 08/28/2016 Lateral epicondylitis of elbow 12/11/2010 0 08/23/2011 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, 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) 11/01/2009 Sprain of ankle, unspecified site 11/01/2009 08/28/2016 Thoracic or lumbosacral neuritis or radiculitis, unspecified 06/09/2009 08/28/2016 Wrist tendonitis 05/10/2009 08/23/2011 Pain in limb 08/29/2006 08/28/2016 Contusion of foot 08/29/2006 08/28/2016 PLANTAR Fasciitis 07/31/2005 08/28/2016 Residual foreign body in soft tissue 01/11/2005 08/28/2016 documented as of this encounter (statuses as of 10/31/2021) [facility] History of Past illness Narrative* Problem Noted Date Resolved Date Fascial defect 05/16/2021 05/19/2021 Last Assessment & Plan: -Scheduled for surgery Hypoglycemia due to type 2 diabetes mellitus 08/23/2020 Morbid obesity due to excess calories 04/12/2016 10/12/2016 Weakness 02/24/2016 08/28/2016 Myofascial pain 01/04/2016 08/28/2016 Acute nonsuppurative otitis media of right ear 0 09/05/2015 08/28/2016 Family history of ischemic heart disease 016 08/28/2016 Mass of forearm 2015 2015 Cicatrix of skin 2015 2015 Ganglion of joint 08/24/2014 08/24/2014 Painful orthopaedic hardware 12/15/2013 Flexor tendon rupture of hand 09/15/2013 Lateral epicondylitis of right elbow 04/07/2013 08/28/2016 Trigger thumb of left hand 11/04/201208/28 Displaced fracture of fifth metatarsal bone of l eft foot 09/08/2012 08/28/2016 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2016 Muscle mass 11/13/2011 08/28/2016 Type II 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, not stated as uncontrolled(250.60) 05/03/2011 04/25/2015 Lateral epicondylitis of left elbow 05/01/2011 08/23/2011 Wound dehiscence, surgical 04/03/201108/22 Post-operative state 03/29/2011 08/23/2011 Dizziness and giddiness 03/26/2011 08/29/19 17 Hereditary and idiopathic peripheral neuropathy 12/19/2010 08/28/2016 Lateral epicondylitis of elbow 12/11/2010 0 08/23/2011 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, 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) 11/01/2009 Sprain of ankle, unspecified site 11/01/2009 08/28/2016 Thoracic or lumbosacral neuritis or radiculitis, unspecified 06/09/2009 08/28/2016 Wrist tendonitis 05/10/2009 08/23/2011 Pain in limb 08/29/2006 08/28/2016 Contusion of foot 08/29/2006 08/28/2016 PLANTAR Fasciitis 07/31/2005 08/28/2016 Residual foreign body in soft tissue 01/11/2005 08/28/2016 documented as of this encounter (statuses as of 11/09/2021) [facility] History of Past illness Narrative* Problem Noted Date Resolved Date Fascial defect 05/16/2021 05/19/2021 Last Assessment & Plan: -Scheduled for surgery Hypoglycemia due to type 2 diabetes mellitus 08/23/2020 Morbid obesity due to excess calories 04/12/2016 10/12/2016 Weakness 02/24/2016 08/28/2016 Myofascial pain 01/04/2016 08/28/2016 Acute nonsuppurative otitis media of right ear 0 09/05/2015 08/28/2016 Family history of ischemic heart disease 016 08/28/2016 Mass of forearm 2015 2015 Cicatrix of skin 2015 2015 Ganglion of joint 08/24/2014 08/24/2014 Painful orthopaedic hardware 12/15/2013 Flexor tendon rupture of hand 09/15/2013 Lateral epicondylitis of right elbow 04/07/2013 08/28/2016 Trigger thumb of left hand 11/04/201208/28 Displaced fracture of fifth metatarsal bone of l eft foot 09/08/2012 08/28/2016 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2016 Muscle mass 11/13/2011 08/28/2016 Type II 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, not stated as uncontrolled(250.60) 05/03/2011 04/25/2015 Lateral epicondylitis of left elbow 05/01/2011 08/23/2011 Wound dehiscence, surgical 04/03/201108/22 Post-operative state 03/29/2011 08/23/2011 Dizziness and giddiness 03/26/2011 08/29/19 17 Hereditary and idiopathic peripheral neuropathy 12/19/2010 08/28/2016 Lateral epicondylitis of elbow 12/11/2010 0 08/23/2011 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, 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) 11/01/2009 Sprain of ankle, unspecified site 11/01/2009 08/28/2016 Thoracic or lumbosacral neuritis or radiculitis, unspecified 06/09/2009 08/28/2016 Wrist tendonitis 05/10/2009 08/23/2011 Pain in limb 08/29/2006 08/28/2016 Contusion of foot 08/29/2006 08/28/2016 PLANTAR Fasciitis 07/31/2005 08/28/2016 Residual foreign body in soft tissue 01/11/2005 08/28/2016 documented as of this encounter (statuses as of 11/13/2021) [facility] History of Past illness Narrative* Problem Noted Date Resolved Date Fascial defect 05/16/2021 05/19/2021 Last Assessment & Plan: -Scheduled for surgery Hypoglycemia due to type 2 diabetes mellitus 08/23/2020 Morbid obesity due to excess calories 04/12/2016 10/12/2016 Weakness 02/24/2016 08/28/2016 Myofascial pain 01/04/2016 08/28/2016 Acute nonsuppurative otitis media of right ear 0 09/05/2015 08/28/2016 Family history of ischemic heart disease 016 08/28/2016 Mass of forearm 2015 2015 Cicatrix of skin 2015 2015 Ganglion of joint 08/24/2014 08/24/2014 Painful orthopaedic hardware 12/15/2013 Flexor tendon rupture of hand 09/15/2013 Lateral epicondylitis of right elbow 04/07/2013 08/28/2016 Trigger thumb of left hand 11/04/201208/28 Displaced fracture of fifth metatarsal bone of l eft foot 09/08/2012 08/28/2016 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2016 Muscle mass 11/13/2011 08/28/2016 Type II 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, not stated as uncontrolled(250.60) 05/03/2011 04/25/2015 Lateral epicondylitis of left elbow 05/01/2011 08/23/2011 Wound dehiscence, surgical 04/03/201108/22 Post-operative state 03/29/2011 08/23/2011 Dizziness and giddiness 03/26/2011 08/29/19 17 Hereditary and idiopathic peripheral neuropathy 12/19/2010 08/28/2016 Lateral epicondylitis of elbow 12/11/2010 0 08/23/2011 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, 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) 11/01/2009 Sprain of ankle, unspecified site 11/01/2009 08/28/2016 Thoracic or lumbosacral neuritis or radiculitis, unspecified 06/09/2009 08/28/2016 Wrist tendonitis 05/10/2009 08/23/2011 Pain in limb 08/29/2006 08/28/2016 Contusion of foot 08/29/2006 08/28/2016 PLANTAR Fasciitis 07/31/2005 08/28/2016 Residual foreign body in soft tissue 01/11/2005 08/28/2016 documented as of this encounter (statuses as of 11/13/2021) [facility]04-05-2022 History of Past illness Narrative* Problem Noted Date Resolved Date Fascial defect 05/16/2021 05/19/2021 Last Assessment & Plan: -Scheduled for surgery Hypoglycemia due to type 2 diabetes mellitus 08/23/2020 Morbid obesity due to excess calories 04/12/2016 10/12/2016 Weakness 02/24/2016 08/28/2016 Myofascial pain 01/04/2016 08/28/2016 Acute nonsuppurative otitis media of right ear 0 09/05/2015 08/28/2016 Family history of ischemic heart disease 016 08/28/2016 Mass of forearm 2015 2015 Cicatrix of skin 2015 2015 Ganglion of joint 08/24/2014 08/24/2014 Painful orthopaedic hardware 12/15/2013 Flexor tendon rupture of hand 09/15/2013 Lateral epicondylitis of right elbow 04/07/2013 08/28/2016 Trigger thumb of left hand 11/04/201208/28 Displaced fracture of fifth metatarsal bone of l eft foot 09/08/2012 08/28/2016 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2016 Muscle mass 11/13/2011 08/28/2016 Type II 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, not stated as uncontrolled(250.60) 05/03/2011 04/25/2015 Lateral epicondylitis of left elbow 05/01/2011 08/23/2011 Wound dehiscence, surgical 04/03/201108/22 Post-operative state 03/29/2011 08/23/2011 Dizziness and giddiness 03/26/2011 08/29/19 17 Hereditary and idiopathic peripheral neuropathy 12/19/2010 08/28/2016 Lateral epicondylitis of elbow 12/11/2010 0 08/23/2011 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, 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) 11/01/2009 Sprain of ankle, unspecified site 11/01/2009 08/28/2016 Thoracic or lumbosacral neuritis or radiculitis, unspecified 06/09/2009 08/28/2016 Wrist tendonitis 05/10/2009 08/23/2011 Pain in limb 08/29/2006 08/28/2016 Contusion of foot 08/29/2006 08/28/2016 PLANTAR Fasciitis 07/31/2005 08/28/2016 Residual foreign body in soft tissue 01/11/2005 08/28/2016 documented as of this encounter (statuses as of 11/13/2021) [facility]04[facility] History of Past illness Narrative* Problem Noted Date Resolved Date Fascial defect 05/16/2021 05/19/2021 Last Assessment & Plan: -Scheduled for surgery Hypoglycemia due to type 2 diabetes mellitus 08/23/2020 Morbid obesity due to excess calories 04/12/2016 10/12/2016 Weakness 02/24/2016 08/28/2016 Myofascial pain 01/04/2016 08/28/2016 Acute nonsuppurative otitis media of right ear 0 09/05/2015 08/28/2016 Family history of ischemic heart disease 016 08/28/2016 Mass of forearm 2015 2015 Cicatrix of skin 2015 2015 Ganglion of joint 08/24/2014 08/24/2014 Painful orthopaedic hardware 12/15/2013 Flexor tendon rupture of hand 09/15/2013 Lateral epicondylitis of right elbow 04/07/2013 08/28/2016 Trigger thumb of left hand 11/04/201208/28 Displaced fracture of fifth metatarsal bone of l eft foot 09/08/2012 08/28/2016 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2016 Muscle mass 11/13/2011 08/28/2016 Type II 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, not stated as uncontrolled(250.60) 05/03/2011 04/25/2015 Lateral epicondylitis of left elbow 05/01/2011 08/23/2011 Wound dehiscence, surgical 04/03/201108/22 Post-operative state 03/29/2011 08/23/2011 Dizziness and giddiness 03/26/2011 08/29/19 17 Hereditary and idiopathic peripheral neuropathy 12/19/2010 08/28/2016 Lateral epicondylitis of elbow 12/11/2010 0 08/23/2011 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, 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) 11/01/2009 Sprain of ankle, unspecified site 11/01/2009 08/28/2016 Thoracic or lumbosacral neuritis or radiculitis, unspecified 06/09/2009 08/28/2016 Wrist tendonitis 05/10/2009 08/23/2011 Pain in limb 08/29/2006 08/28/2016 Contusion of foot 08/29/2006 08/28/2016 PLANTAR Fasciitis 07/31/2005 08/28/2016 Residual foreign body in soft tissue 01/11/2005 08/28/2016 documented as of this encounter (statuses as of 11/14/2021) [facility] History of Past illness Narrative* Problem Noted Date Resolved Date Fascial defect 05/16/2021 05/19/2021 Last Assessment & Plan: -Scheduled for surgery Hypoglycemia due to type 2 diabetes mellitus 08/23/2020 Morbid obesity due to excess calories 04/12/2016 10/12/2016 Weakness 02/24/2016 08/28/2016 Myofascial pain 01/04/2016 08/28/2016 Acute nonsuppurative otitis media of right ear 0 09/05/2015 08/28/2016 Family history of ischemic heart disease 016 08/28/2016 Mass of forearm 2015 2015 Cicatrix of skin 2015 2015 Ganglion of joint 08/24/2014 08/24/2014 Painful orthopaedic hardware 12/15/2013 Flexor tendon rupture of hand 09/15/2013 Lateral epicondylitis of right elbow 04/07/2013 08/28/2016 Trigger thumb of left hand 11/04/201208/28 Displaced fracture of fifth metatarsal bone of l eft foot 09/08/2012 08/28/2016 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2016 Muscle mass 11/13/2011 08/28/2016 Type II 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, not stated as uncontrolled(250.60) 05/03/2011 04/25/2015 Lateral epicondylitis of left elbow 05/01/2011 08/23/2011 Wound dehiscence, surgical 04/03/201108/22 Post-operative state 03/29/2011 08/23/2011 Dizziness and giddiness 03/26/2011 08/29/19 17 Hereditary and idiopathic peripheral neuropathy 12/19/2010 08/28/2016 Lateral epicondylitis of elbow 12/11/2010 0 08/23/2011 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, 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) 11/01/2009 Sprain of ankle, unspecified site 11/01/2009 08/28/2016 Thoracic or lumbosacral neuritis or radiculitis, unspecified 06/09/2009 08/28/2016 Wrist tendonitis 05/10/2009 08/23/2011 Pain in limb 08/29/2006 08/28/2016 Contusion of foot 08/29/2006 08/28/2016 PLANTAR Fasciitis 07/31/2005 08/28/2016 Residual foreign body in soft tissue 01/11/2005 08/28/2016 documented as of this encounter (statuses as of 11/22/2021) [facility] History of Past illness Narrative* Problem Noted Date Resolved Date Fascial defect 05/16/2021 05/19/2021 Last Assessment & Plan: -Scheduled for surgery Hypoglycemia due to type 2 diabetes mellitus 08/23/2020 Morbid obesity due to excess calories 04/12/2016 10/12/2016 Weakness 02/24/2016 08/28/2016 Myofascial pain 01/04/2016 08/28/2016 Acute nonsuppurative otitis media of right ear 0 09/05/2015 08/28/2016 Family history of ischemic heart disease 016 08/28/2016 Mass of forearm 2015 2015 Cicatrix of skin 2015 2015 Ganglion of joint 08/24/2014 08/24/2014 Painful orthopaedic hardware 12/15/2013 Flexor tendon rupture of hand 09/15/2013 Lateral epicondylitis of right elbow 04/07/2013 08/28/2016 Trigger thumb of left hand 11/04/201208/28 Displaced fracture of fifth metatarsal bone of l eft foot 09/08/2012 08/28/2016 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2016 Muscle mass 11/13/2011 08/28/2016 Type II 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, not stated as uncontrolled(250.60) 05/03/2011 04/25/2015 Lateral epicondylitis of left elbow 05/01/2011 08/23/2011 Wound dehiscence, surgical 04/03/201108/22 Post-operative state 03/29/2011 08/23/2011 Dizziness and giddiness 03/26/2011 08/29/19 17 Hereditary and idiopathic peripheral neuropathy 12/19/2010 08/28/2016 Lateral epicondylitis of elbow 12/11/2010 0 08/23/2011 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, 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) 11/01/2009 Sprain of ankle, unspecified site 11/01/2009 08/28/2016 Thoracic or lumbosacral neuritis or radiculitis, unspecified 06/09/2009 08/28/2016 Wrist tendonitis 05/10/2009 08/23/2011 Pain in limb 08/29/2006 08/28/2016 Contusion of foot 08/29/2006 08/28/2016 PLANTAR Fasciitis 07/31/2005 08/28/2016 Residual foreign body in soft tissue 01/11/2005 08/28/2016 documented as of this encounter (statuses as of 11/22/2021) [facility] History of Past illness Narrative* Problem Noted Date Resolved Date Fascial defect 05/16/2021 05/19/2021 Last Assessment & Plan: -Scheduled for surgery Hypoglycemia due to type 2 diabetes mellitus 08/23/2020 Morbid obesity due to excess calories 04/12/2016 10/12/2016 Weakness 02/24/2016 08/28/2016 Myofascial pain 01/04/2016 08/28/2016 Acute nonsuppurative otitis media of right ear 0 09/05/2015 08/28/2016 Family history of ischemic heart disease 016 08/28/2016 Mass of forearm 2015 2015 Cicatrix of skin 2015 2015 Ganglion of joint 08/24/2014 08/24/2014 Painful orthopaedic hardware 12/15/2013 Flexor tendon rupture of hand 09/15/2013 Lateral epicondylitis of right elbow 04/07/2013 08/28/2016 Trigger thumb of left hand 11/04/201208/28 Displaced fracture of fifth metatarsal bone of l eft foot 09/08/2012 08/28/2016 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2016 Muscle mass 11/13/2011 08/28/2016 Type II 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, not stated as uncontrolled(250.60) 05/03/2011 04/25/2015 Lateral epicondylitis of left elbow 05/01/2011 08/23/2011 Wound dehiscence, surgical 04/03/201108/22 Post-operative state 03/29/2011 08/23/2011 Dizziness and giddiness 03/26/2011 08/29/19 17 Hereditary and idiopathic peripheral neuropathy 12/19/2010 08/28/2016 Lateral epicondylitis of elbow 12/11/2010 0 08/23/2011 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, 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) 11/01/2009 Sprain of ankle, unspecified site 11/01/2009 08/28/2016 Thoracic or lumbosacral neuritis or radiculitis, unspecified 06/09/2009 08/28/2016 Wrist tendonitis 05/10/2009 08/23/2011 Pain in limb 08/29/2006 08/28/2016 Contusion of foot 08/29/2006 08/28/2016 PLANTAR Fasciitis 07/31/2005 08/28/2016 Residual foreign body in soft tissue 01/11/2005 08/28/2016 documented as of this encounter (statuses as of 11/23/2021) [facility] History of Past illness Narrative* Problem Noted Date Resolved Date Fascial defect 05/16/2021 05/19/2021 Last Assessment & Plan: -Scheduled for surgery Hypoglycemia due to type 2 diabetes mellitus 08/23/2020 Morbid obesity due to excess calories 04/12/2016 10/12/2016 Weakness 02/24/2016 08/28/2016 Myofascial pain 01/04/2016 08/28/2016 Acute nonsuppurative otitis media of right ear 0 09/05/2015 08/28/2016 Family history of ischemic heart disease 016 08/28/2016 Mass of forearm 2015 2015 Cicatrix of skin 2015 2015 Ganglion of joint 08/24/2014 08/24/2014 Painful orthopaedic hardware 12/15/2013 Flexor tendon rupture of hand 09/15/2013 Lateral epicondylitis of right elbow 04/07/2013 08/28/2016 Trigger thumb of left hand 11/04/201208/28 Displaced fracture of fifth metatarsal bone of l eft foot 09/08/2012 08/28/2016 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2016 Muscle mass 11/13/2011 08/28/2016 Type II 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, not stated as uncontrolled(250.60) 05/03/2011 04/25/2015 Lateral epicondylitis of left elbow 05/01/2011 08/23/2011 Wound dehiscence, surgical 04/03/201108/22 Post-operative state 03/29/2011 08/23/2011 Dizziness and giddiness 03/26/2011 08/29/19 17 Hereditary and idiopathic peripheral neuropathy 12/19/2010 08/28/2016 Lateral epicondylitis of elbow 12/11/2010 0 08/23/2011 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, 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) 11/01/2009 Sprain of ankle, unspecified site 11/01/2009 08/28/2016 Thoracic or lumbosacral neuritis or radiculitis, unspecified 06/09/2009 08/28/2016 Wrist tendonitis 05/10/2009 08/23/2011 Pain in limb 08/29/2006 08/28/2016 Contusion of foot 08/29/2006 08/28/2016 PLANTAR Fasciitis 07/31/2005 08/28/2016 Residual foreign body in soft tissue 01/11/2005 08/28/2016 documented as of this encounter (statuses as of 11/23/2021) [facility] History of Past illness Narrative* Problem Noted Date Resolved Date Fascial defect 05/16/2021 05/19/2021 Last Assessment & Plan: -Scheduled for surgery Hypoglycemia due to type 2 diabetes mellitus 08/23/2020 Morbid obesity due to excess calories 04/12/2016 10/12/2016 Weakness 02/24/2016 08/28/2016 Myofascial pain 01/04/2016 08/28/2016 Acute nonsuppurative otitis media of right ear 0 09/05/2015 08/28/2016 Family history of ischemic heart disease 016 08/28/2016 Mass of forearm 2015 2015 Cicatrix of skin 2015 2015 Ganglion of joint 08/24/2014 08/24/2014 Painful orthopaedic hardware 12/15/2013 Flexor tendon rupture of hand 09/15/2013 Lateral epicondylitis of right elbow 04/07/2013 08/28/2016 Trigger thumb of left hand 11/04/201208/28 Displaced fracture of fifth metatarsal bone of l eft foot 09/08/2012 08/28/2016 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2016 Muscle mass 11/13/2011 08/28/2016 Type II 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, not stated as uncontrolled(250.60) 05/03/2011 04/25/2015 Lateral epicondylitis of left elbow 05/01/2011 08/23/2011 Wound dehiscence, surgical 04/03/201108/22 Post-operative state 03/29/2011 08/23/2011 Dizziness and giddiness 03/26/2011 08/29/19 17 Hereditary and idiopathic peripheral neuropathy 12/19/2010 08/28/2016 Lateral epicondylitis of elbow 12/11/2010 0 08/23/2011 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, 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) 11/01/2009 Sprain of ankle, unspecified site 11/01/2009 08/28/2016 Thoracic or lumbosacral neuritis or radiculitis, unspecified 06/09/2009 08/28/2016 Wrist tendonitis 05/10/2009 08/23/2011 Pain in limb 08/29/2006 08/28/2016 Contusion of foot 08/29/2006 08/28/2016 PLANTAR Fasciitis 07/31/2005 08/28/2016 Residual foreign body in soft tissue 01/11/2005 08/28/2016 documented as of this encounter (statuses as of 12/04/2021) [facility] History of Past illness Narrative* Problem Noted Date Resolved Date Fascial defect 05/16/2021 05/19/2021 Last Assessment & Plan: -Scheduled for surgery Hypoglycemia due to type 2 diabetes mellitus 08/23/2020 Morbid obesity due to excess calories 04/12/2016 10/12/2016 Weakness 02/24/2016 08/28/2016 Myofascial pain 01/04/2016 08/28/2016 Acute nonsuppurative otitis media of right ear 0 09/05/2015 08/28/2016 Family history of ischemic heart disease 016 08/28/2016 Mass of forearm 2015 2015 Cicatrix of skin 2015 2015 Ganglion of joint 08/24/2014 08/24/2014 Painful orthopaedic hardware 12/15/2013 Flexor tendon rupture of hand 09/15/2013 Lateral epicondylitis of right elbow 04/07/2013 08/28/2016 Trigger thumb of left hand 11/04/201208/28 Displaced fracture of fifth metatarsal bone of l eft foot 09/08/2012 08/28/2016 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2016 Muscle mass 11/13/2011 08/28/2016 Type II 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, not stated as uncontrolled(250.60) 05/03/2011 04/25/2015 Lateral epicondylitis of left elbow 05/01/2011 08/23/2011 Wound dehiscence, surgical 04/03/201108/22 Post-operative state 03/29/2011 08/23/2011 Dizziness and giddiness 03/26/2011 07/18/20 17 Hereditary and idiopathic peripheral neuropathy 12/19/2010 08/28/2016 Lateral epicondylitis of elbow 12/11/2010 0 08/23/2011 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, 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) 11/01/2009 Sprain of ankle, unspecified site 11/01/2009 08/28/2016 Thoracic or lumbosacral neuritis or radiculitis, unspecified 06/09/2009 08/28/2016 Wrist tendonitis 05/10/2009 08/23/2011 Pain in limb 08/29/2006 08/28/2016 Contusion of foot 08/29/2006 08/28/2016 PLANTAR Fasciitis 07/31/2005 08/28/2016 Residual foreign body in soft tissue 01/11/2005 08/28/2016 documented as of this encounter (statuses as of 12/08/2021) [facility] History of Past illness Narrative* Problem Noted Date Resolved Date Fascial defect 05/16/2021 05/19/2021 Last Assessment & Plan: -Scheduled for surgery Hypoglycemia due to type 2 diabetes mellitus 08/23/2020 Morbid obesity due to excess calories 04/12/2016 10/12/2016 Weakness 02/24/2016 08/28/2016 Myofascial pain 01/04/2016 08/28/2016 Acute nonsuppurative otitis media of right ear 0 09/05/2015 08/28/2016 Family history of ischemic heart disease 016 08/28/2016 Mass of forearm 2015 2015 Cicatrix of skin 2015 2015 Ganglion of joint 08/24/2014 08/24/2014 Painful orthopaedic hardware 12/15/2013 Flexor tendon rupture of hand 09/15/2013 Lateral epicondylitis of right elbow 04/07/2013 08/28/2016 Trigger thumb of left hand 11/04/201208/28 Displaced fracture of fifth metatarsal bone of l eft foot 09/08/2012 08/28/2016 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2016 Muscle mass 11/13/2011 08/28/2016 Type II 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, not stated as uncontrolled(250.60) 05/03/2011 04/25/2015 Lateral epicondylitis of left elbow 05/01/2011 08/23/2011 Wound dehiscence, surgical 04/03/201108/22 Post-operative state 03/29/2011 08/23/2011 Dizziness and giddiness 03/26/2011 08/29/19 17 Hereditary and idiopathic peripheral neuropathy 12/19/2010 08/28/2016 Lateral epicondylitis of elbow 12/11/2010 0 08/23/2011 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, 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) 11/01/2009 Sprain of ankle, unspecified site 11/01/2009 08/28/2016 Thoracic or lumbosacral neuritis or radiculitis, unspecified 06/09/2009 08/28/2016 Wrist tendonitis 05/10/2009 08/23/2011 Pain in limb 08/29/2006 08/28/2016 Contusion of foot 08/29/2006 08/28/2016 PLANTAR Fasciitis 07/31/2005 08/28/2016 Residual foreign body in soft tissue 01/11/2005 08/28/2016 documented as of this encounter (statuses as of 12/12/2021) [facility] History of Past illness Narrative* Problem Noted Date Resolved Date Fascial defect 05/16/2021 05/19/2021 Last Assessment & Plan: -Scheduled for surgery Hypoglycemia due to type 2 diabetes mellitus 08/23/2020 Morbid obesity due to excess calories 04/12/2016 10/12/2016 Weakness 02/24/2016 08/28/2016 Myofascial pain 01/04/2016 08/28/2016 Acute nonsuppurative otitis media of right ear 0 09/05/2015 08/28/2016 Family history of ischemic heart disease 016 08/28/2016 Mass of forearm 2015 2015 Cicatrix of skin 2015 2015 Ganglion of joint 08/24/2014 08/24/2014 Painful orthopaedic hardware 12/15/2013 Flexor tendon rupture of hand 09/15/2013 Lateral epicondylitis of right elbow 04/07/2013 08/28/2016 Trigger thumb of left hand 11/04/201208/28 Displaced fracture of fifth metatarsal bone of l eft foot 09/08/2012 08/28/2016 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2016 Muscle mass 11/13/2011 08/28/2016 Type II 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, not stated as uncontrolled(250.60) 05/03/2011 04/25/2015 Lateral epicondylitis of left elbow 05/01/2011 08/23/2011 Wound dehiscence, surgical 04/03/201108/22 Post-operative state 03/29/2011 08/23/2011 Dizziness and giddiness 03/26/2011 08/29/19 17 Hereditary and idiopathic peripheral neuropathy 12/19/2010 08/28/2016 Lateral epicondylitis of elbow 12/11/2010 0 08/23/2011 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, 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) 11/01/2009 Sprain of ankle, unspecified site 11/01/2009 08/28/2016 Thoracic or lumbosacral neuritis or radiculitis, unspecified 06/09/2009 08/28/2016 Wrist tendonitis 05/10/2009 08/23/2011 Pain in limb 08/29/2006 08/28/2016 Contusion of foot 08/29/2006 08/28/2016 PLANTAR Fasciitis 07/31/2005 08/28/2016 Residual foreign body in soft tissue 01/11/2005 08/28/2016 documented as of this encounter (statuses as of 12/14/2021) [facility] History of Past illness Narrative* Problem Noted Date Resolved Date Fascial defect 05/16/2021 05/19/2021 Last Assessment & Plan: -Scheduled for surgery Hypoglycemia due to type 2 diabetes mellitus 08/23/2020 Morbid obesity due to excess calories 04/12/2016 10/12/2016 Weakness 02/24/2016 08/28/2016 Myofascial pain 01/04/2016 08/28/2016 Acute nonsuppurative otitis media of right ear 0 09/05/2015 08/28/2016 Family history of ischemic heart disease 016 08/28/2016 Mass of forearm 2015 2015 Cicatrix of skin 2015 2015 Ganglion of joint 08/24/2014 08/24/2014 Painful orthopaedic hardware 12/15/2013 Flexor tendon rupture of hand 09/15/2013 Lateral epicondylitis of right elbow 04/07/2013 08/28/2016 Trigger thumb of left hand 11/04/201208/28 Displaced fracture of fifth metatarsal bone of l eft foot 09/08/2012 08/28/2016 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2016 Muscle mass 11/13/2011 08/28/2016 Type II 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, not stated as uncontrolled(250.60) 05/03/2011 04/25/2015 Lateral epicondylitis of left elbow 05/01/2011 08/23/2011 Wound dehiscence, surgical 04/03/201108/22 Post-operative state 03/29/2011 08/23/2011 Dizziness and giddiness 03/26/2011 08/29/19 17 Hereditary and idiopathic peripheral neuropathy 12/19/2010 08/28/2016 Lateral epicondylitis of elbow 12/11/2010 0 08/23/2011 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, 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) 11/01/2009 Sprain of ankle, unspecified site 11/01/2009 08/28/2016 Thoracic or lumbosacral neuritis or radiculitis, unspecified 06/09/2009 08/28/2016 Wrist tendonitis 05/10/2009 08/23/2011 Pain in limb 08/29/2006 08/28/2016 Contusion of foot 08/29/2006 08/28/2016 PLANTAR Fasciitis 07/31/2005 08/28/2016 Residual foreign body in soft tissue 01/11/2005 08/28/2016 documented as of this encounter (statuses as of 12/14/2021) [facility] History of Past illness Narrative* Problem Noted Date Resolved Date Fascial defect 05/16/2021 05/19/2021 Last Assessment & Plan: -Scheduled for surgery Hypoglycemia due to type 2 diabetes mellitus 08/23/2020 Morbid obesity due to excess calories 04/12/2016 10/12/2016 Weakness 02/24/2016 08/28/2016 Myofascial pain 01/04/2016 08/28/2016 Acute nonsuppurative otitis media of right ear 0 09/05/2015 08/28/2016 Family history of ischemic heart disease 016 08/28/2016 Mass of forearm 2015 2015 Cicatrix of skin 2015 2015 Ganglion of joint 08/24/2014 08/24/2014 Painful orthopaedic hardware 12/15/2013 Flexor tendon rupture of hand 09/15/2013 Lateral epicondylitis of right elbow 04/07/2013 08/28/2016 Trigger thumb of left hand 11/04/201208/28 Displaced fracture of fifth metatarsal bone of l eft foot 09/08/2012 08/28/2016 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2016 Muscle mass 11/13/2011 08/28/2016 Type II 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, not stated as uncontrolled(250.60) 05/03/2011 04/25/2015 Lateral epicondylitis of left elbow 05/01/2011 08/23/2011 Wound dehiscence, surgical 04/03/201108/22 Post-operative state 03/29/2011 08/23/2011 Dizziness and giddiness 03/26/2011 08/29/19 17 Hereditary and idiopathic peripheral neuropathy 12/19/2010 08/28/2016 Lateral epicondylitis of elbow 12/11/2010 0 08/23/2011 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, 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) 11/01/2009 Sprain of ankle, unspecified site 11/01/2009 08/28/2016 Thoracic or lumbosacral neuritis or radiculitis, unspecified 06/09/2009 08/28/2016 Wrist tendonitis 05/10/2009 08/23/2011 Pain in limb 08/29/2006 08/28/2016 Contusion of foot 08/29/2006 08/28/2016 PLANTAR Fasciitis 07/31/2005 08/28/2016 Residual foreign body in soft tissue 01/11/2005 08/28/2016 documented as of this encounter (statuses as of 12/15/2021) [facility]04-05-2022 History of Past illness Narrative* Problem Noted Date Resolved Date Fascial defect 05/16/2021 05/19/2021 Last Assessment & Plan: -Scheduled for surgery Hypoglycemia due to type 2 diabetes mellitus 08/23/2020 Morbid obesity due to excess calories 04/12/2016 10/12/2016 Weakness 02/24/2016 08/28/2016 Myofascial pain 01/04/2016 08/28/2016 Acute nonsuppurative otitis media of right ear 0 09/05/2015 08/28/2016 Family history of ischemic heart disease 016 08/28/2016 Mass of forearm 2015 2015 Cicatrix of skin 2015 2015 Ganglion of joint 08/24/2014 08/24/2014 Painful orthopaedic hardware 12/15/2013 Flexor tendon rupture of hand 09/15/2013 Lateral epicondylitis of right elbow 04/07/2013 08/28/2016 Trigger thumb of left hand 11/04/201208/28 Displaced fracture of fifth metatarsal bone of l eft foot 09/08/2012 08/28/2016 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2016 Muscle mass 11/13/2011 08/28/2016 Type II 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, not stated as uncontrolled(250.60) 05/03/2011 04/25/2015 Lateral epicondylitis of left elbow 05/01/2011 08/23/2011 Wound dehiscence, surgical 04/03/201108/22 Post-operative state 03/29/2011 08/23/2011 Dizziness and giddiness 03/26/2011 08/29/19 17 Hereditary and idiopathic peripheral neuropathy 12/19/2010 08/28/2016 Lateral epicondylitis of elbow 12/11/2010 0 08/23/2011 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, 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) 11/01/2009 Sprain of ankle, unspecified site 11/01/2009 08/28/2016 Thoracic or lumbosacral neuritis or radiculitis, unspecified 06/09/2009 08/28/2016 Wrist tendonitis 05/10/2009 08/23/2011 Pain in limb 08/29/2006 08/28/2016 Contusion of foot 08/29/2006 08/28/2016 PLANTAR Fasciitis 07/31/2005 08/28/2016 Residual foreign body in soft tissue 01/11/2005 08/28/2016 documented as of this encounter (statuses as of 12/21/2021) [facility] History of Past illness Narrative* Problem Noted Date Resolved Date Fascial defect 05/16/2021 05/19/2021 Last Assessment & Plan: -Scheduled for surgery Hypoglycemia due to type 2 diabetes mellitus 08/23/2020 Morbid obesity due to excess calories 04/12/2016 10/12/2016 Weakness 02/24/2016 08/28/2016 Myofascial pain 01/04/2016 08/28/2016 Acute nonsuppurative otitis media of right ear 0 09/05/2015 08/28/2016 Family history of ischemic heart disease 016 08/28/2016 Mass of forearm 2015 2015 Cicatrix of skin 2015 2015 Ganglion of joint 08/24/2014 08/24/2014 Painful orthopaedic hardware 12/15/2013 Flexor tendon rupture of hand 09/15/2013 Lateral epicondylitis of right elbow 04/07/2013 08/28/2016 Trigger thumb of left hand 11/04/201208/28 Displaced fracture of fifth metatarsal bone of l eft foot 09/08/2012 08/28/2016 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2016 Muscle mass 11/13/2011 08/28/2016 Type II 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, not stated as uncontrolled(250.60) 05/03/2011 04/25/2015 Lateral epicondylitis of left elbow 05/01/2011 08/23/2011 Wound dehiscence, surgical 04/03/201108/22 Post-operative state 03/29/2011 08/23/2011 Dizziness and giddiness 03/26/2011 08/29/19 17 Hereditary and idiopathic peripheral neuropathy 12/19/2010 08/28/2016 Lateral epicondylitis of elbow 12/11/2010 0 08/23/2011 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, 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) 11/01/2009 Sprain of ankle, unspecified site 11/01/2009 08/28/2016 Thoracic or lumbosacral neuritis or radiculitis, unspecified 06/09/2009 08/28/2016 Wrist tendonitis 05/10/2009 08/23/2011 Pain in limb 08/29/2006 08/28/2016 Contusion of foot 08/29/2006 08/28/2016 PLANTAR Fasciitis 07/31/2005 08/28/2016 Residual foreign body in soft tissue 01/11/2005 08/28/2016 documented as of this encounter (statuses as of 01/10/2022) [facility] History of Past illness Narrative* Problem Noted Date Resolved Date Fascial defect 05/16/2021 05/19/2021 Last Assessment & Plan: -Scheduled for surgery Hypoglycemia due to type 2 diabetes mellitus 08/23/2020 Morbid obesity due to excess calories 04/12/2016 10/12/2016 Weakness 02/24/2016 08/28/2016 Myofascial pain 01/04/2016 08/28/2016 Acute nonsuppurative otitis media of right ear 0 09/05/2015 08/28/2016 Family history of ischemic heart disease 016 08/28/2016 Mass of forearm 2015 2015 Cicatrix of skin 2015 2015 Ganglion of joint 08/24/2014 08/24/2014 Painful orthopaedic hardware 12/15/2013 Flexor tendon rupture of hand 09/15/2013 Lateral epicondylitis of right elbow 04/07/2013 08/28/2016 Trigger thumb of left hand 11/04/201208/28 Displaced fracture of fifth metatarsal bone of l eft foot 09/08/2012 08/28/2016 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2016 Muscle mass 11/13/2011 08/28/2016 Type II 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, not stated as uncontrolled(250.60) 05/03/2011 04/25/2015 Lateral epicondylitis of left elbow 05/01/2011 08/23/2011 Wound dehiscence, surgical 04/03/201108/22 Post-operative state 03/29/2011 08/23/2011 Dizziness and giddiness 03/26/2011 08/29/19 17 Hereditary and idiopathic peripheral neuropathy 12/19/2010 08/28/2016 Lateral epicondylitis of elbow 12/11/2010 0 08/23/2011 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, 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) 11/01/2009 Sprain of ankle, unspecified site 11/01/2009 08/28/2016 Thoracic or lumbosacral neuritis or radiculitis, unspecified 06/09/2009 08/28/2016 Wrist tendonitis 05/10/2009 08/23/2011 Pain in limb 08/29/2006 08/28/2016 Contusion of foot 08/29/2006 08/28/2016 PLANTAR Fasciitis 07/31/2005 08/28/2016 Residual foreign body in soft tissue 01/11/2005 08/28/2016 documented as of this encounter (statuses as of 01/12/2022) [facility] History of Past illness Narrative* Problem Noted Date Resolved Date Fascial defect 05/16/2021 05/19/2021 Last Assessment & Plan: -Scheduled for surgery Hypoglycemia due to type 2 diabetes mellitus 08/23/2020 Morbid obesity due to excess calories 04/12/2016 10/12/2016 Weakness 02/24/2016 08/28/2016 Myofascial pain 01/04/2016 08/28/2016 Acute nonsuppurative otitis media of right ear 0 09/05/2015 08/28/2016 Family history of ischemic heart disease 016 08/28/2016 Mass of forearm 2015 2015 Cicatrix of skin 2015 2015 Ganglion of joint 08/24/2014 08/24/2014 Painful orthopaedic hardware 12/15/2013 Flexor tendon rupture of hand 09/15/2013 Lateral epicondylitis of right elbow 04/07/2013 08/28/2016 Trigger thumb of left hand 11/04/201208/28 Displaced fracture of fifth metatarsal bone of l eft foot 09/08/2012 08/28/2016 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2016 Muscle mass 11/13/2011 08/28/2016 Type II 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, not stated as uncontrolled(250.60) 05/03/2011 04/25/2015 Lateral epicondylitis of left elbow 05/01/2011 08/23/2011 Wound dehiscence, surgical 04/03/201108/22 Post-operative state 03/29/2011 08/23/2011 Dizziness and giddiness 03/26/2011 08/29/19 17 Hereditary and idiopathic peripheral neuropathy 12/19/2010 08/28/2016 Lateral epicondylitis of elbow 12/11/2010 0 08/23/2011 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, 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) 11/01/2009 Sprain of ankle, unspecified site 11/01/2009 08/28/2016 Thoracic or lumbosacral neuritis or radiculitis, unspecified 06/09/2009 08/28/2016 Wrist tendonitis 05/10/2009 08/23/2011 Pain in limb 08/29/2006 08/28/2016 Contusion of foot 08/29/2006 08/28/2016 PLANTAR Fasciitis 07/31/2005 08/28/2016 Residual foreign body in soft tissue 01/11/2005 08/28/2016 documented as of this encounter (statuses as of 01/12/2022) [facility] History of Past illness Narrative* Problem Noted Date Resolved Date Fascial defect 05/16/2021 05/19/2021 Last Assessment & Plan: -Scheduled for surgery Hypoglycemia due to type 2 diabetes mellitus 08/23/2020 Morbid obesity due to excess calories 04/12/2016 10/12/2016 Weakness 02/24/2016 08/28/2016 Myofascial pain 01/04/2016 08/28/2016 Acute nonsuppurative otitis media of right ear 0 09/05/2015 08/28/2016 Family history of ischemic heart disease 016 08/28/2016 Mass of forearm 2015 2015 Cicatrix of skin 2015 2015 Ganglion of joint 08/24/2014 08/24/2014 Painful orthopaedic hardware 12/15/2013 Flexor tendon rupture of hand 09/15/2013 Lateral epicondylitis of right elbow 04/07/2013 08/28/2016 Trigger thumb of left hand 11/04/201208/28 Displaced fracture of fifth metatarsal bone of l eft foot 09/08/2012 08/28/2016 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2016 Muscle mass 11/13/2011 08/28/2016 Type II 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, not stated as uncontrolled(250.60) 05/03/2011 04/25/2015 Lateral epicondylitis of left elbow 05/01/2011 08/23/2011 Wound dehiscence, surgical 04/03/201108/22 Post-operative state 03/29/2011 08/23/2011 Dizziness and giddiness 03/26/2011 08/29/19 17 Hereditary and idiopathic peripheral neuropathy 12/19/2010 08/28/2016 Lateral epicondylitis of elbow 12/11/2010 0 08/23/2011 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, 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) 11/01/2009 Sprain of ankle, unspecified site 11/01/2009 08/28/2016 Thoracic or lumbosacral neuritis or radiculitis, unspecified 06/09/2009 08/28/2016 Wrist tendonitis 05/10/2009 08/23/2011 Pain in limb 08/29/2006 08/28/2016 Contusion of foot 08/29/2006 08/28/2016 PLANTAR Fasciitis 07/31/2005 08/28/2016 Residual foreign body in soft tissue 01/11/2005 08/28/2016 documented as of this encounter (statuses as of 01/22/2022) [facility] History of Past illness Narrative* Problem Noted Date Resolved Date Fascial defect 05/16/2021 05/19/2021 Last Assessment & Plan: -Scheduled for surgery Hypoglycemia due to type 2 diabetes mellitus 08/23/2020 Morbid obesity due to excess calories 04/12/2016 10/12/2016 Weakness 02/24/2016 08/28/2016 Myofascial pain 01/04/2016 08/28/2016 Acute nonsuppurative otitis media of right ear 0 09/05/2015 08/28/2016 Family history of ischemic heart disease 016 08/28/2016 Mass of forearm 2015 2015 Cicatrix of skin 2015 2015 Ganglion of joint 08/24/2014 08/24/2014 Painful orthopaedic hardware 12/15/2013 Flexor tendon rupture of hand 09/15/2013 Lateral epicondylitis of right elbow 04/07/2013 08/28/2016 Trigger thumb of left hand 11/04/201208/28 Displaced fracture of fifth metatarsal bone of l eft foot 09/08/2012 08/28/2016 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2016 Muscle mass 11/13/2011 08/28/2016 Type II 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, not stated as uncontrolled(250.60) 05/03/2011 04/25/2015 Lateral epicondylitis of left elbow 05/01/2011 08/23/2011 Wound dehiscence, surgical 04/03/201108/22 Post-operative state 03/29/2011 08/23/2011 Dizziness and giddiness 03/26/2011 08/29/19 17 Hereditary and idiopathic peripheral neuropathy 12/19/2010 08/28/2016 Lateral epicondylitis of elbow 12/11/2010 0 08/23/2011 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, 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) 11/01/2009 Sprain of ankle, unspecified site 11/01/2009 08/28/2016 Thoracic or lumbosacral neuritis or radiculitis, unspecified 06/09/2009 08/28/2016 Wrist tendonitis 05/10/2009 08/23/2011 Pain in limb 08/29/2006 08/28/2016 Contusion of foot 08/29/2006 08/28/2016 PLANTAR Fasciitis 07/31/2005 08/28/2016 Residual foreign body in soft tissue 01/11/2005 08/28/2016 documented as of this encounter (statuses as of 01/22/2022) [facility] History of Past illness Narrative* Problem Noted Date Resolved Date Fascial defect 05/16/2021 05/19/2021 Last Assessment & Plan: -Scheduled for surgery Hypoglycemia due to type 2 diabetes mellitus 08/23/2020 Morbid obesity due to excess calories 04/12/2016 10/12/2016 Weakness 02/24/2016 08/28/2016 Myofascial pain 01/04/2016 08/28/2016 Acute nonsuppurative otitis media of right ear 0 09/05/2015 08/28/2016 Family history of ischemic heart disease 016 08/28/2016 Mass of forearm 2015 2015 Cicatrix of skin 2015 2015 Ganglion of joint 08/24/2014 08/24/2014 Painful orthopaedic hardware 12/15/2013 Flexor tendon rupture of hand 09/15/2013 Lateral epicondylitis of right elbow 04/07/2013 08/28/2016 Trigger thumb of left hand 11/04/201208/28 Displaced fracture of fifth metatarsal bone of l eft foot 09/08/2012 08/28/2016 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2016 Muscle mass 11/13/2011 08/28/2016 Type II 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, not stated as uncontrolled(250.60) 05/03/2011 04/25/2015 Lateral epicondylitis of left elbow 05/01/2011 08/23/2011 Wound dehiscence, surgical 04/03/201108/22 Post-operative state 03/29/2011 08/23/2011 Dizziness and giddiness 03/26/2011 08/29/19 17 Hereditary and idiopathic peripheral neuropathy 12/19/2010 08/28/2016 Lateral epicondylitis of elbow 12/11/2010 0 08/23/2011 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, 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) 11/01/2009 Sprain of ankle, unspecified site 11/01/2009 08/28/2016 Thoracic or lumbosacral neuritis or radiculitis, unspecified 06/09/2009 08/28/2016 Wrist tendonitis 05/10/2009 08/23/2011 Pain in limb 08/29/2006 08/28/2016 Contusion of foot 08/29/2006 08/28/2016 PLANTAR Fasciitis 07/31/2005 08/28/2016 Residual foreign body in soft tissue 01/11/2005 08/28/2016 documented as of this encounter (statuses as of 01/26/2022) [facility] History of Past illness Narrative* Problem Noted Date Resolved Date Fascial defect 05/16/2021 05/19/2021 Last Assessment & Plan: -Scheduled for surgery Hypoglycemia due to type 2 diabetes mellitus 08/23/2020 Morbid obesity due to excess calories 04/12/2016 10/12/2016 Weakness 02/24/2016 08/28/2016 Myofascial pain 01/04/2016 08/28/2016 Acute nonsuppurative otitis media of right ear 0 09/05/2015 08/28/2016 Family history of ischemic heart disease 016 08/28/2016 Mass of forearm 2015 2015 Cicatrix of skin 2015 2015 Ganglion of joint 08/24/2014 08/24/2014 Painful orthopaedic hardware 12/15/2013 Flexor tendon rupture of hand 09/15/2013 Lateral epicondylitis of right elbow 04/07/2013 08/28/2016 Trigger thumb of left hand 11/04/201208/28 Displaced fracture of fifth metatarsal bone of l eft foot 09/08/2012 08/28/2016 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2016 Muscle mass 11/13/2011 08/28/2016 Type II 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, not stated as uncontrolled(250.60) 05/03/2011 04/25/2015 Lateral epicondylitis of left elbow 05/01/2011 08/23/2011 Wound dehiscence, surgical 04/03/201108/22 Post-operative state 03/29/2011 08/23/2011 Dizziness and giddiness 03/26/2011 08/29/19 17 Hereditary and idiopathic peripheral neuropathy 12/19/2010 08/28/2016 Lateral epicondylitis of elbow 12/11/2010 0 08/23/2011 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, 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) 11/01/2009 Sprain of ankle, unspecified site 11/01/2009 08/28/2016 Thoracic or lumbosacral neuritis or radiculitis, unspecified 06/09/2009 08/28/2016 Wrist tendonitis 05/10/2009 08/23/2011 Pain in limb 08/29/2006 08/28/2016 Contusion of foot 08/29/2006 08/28/2016 PLANTAR Fasciitis 07/31/2005 08/28/2016 Residual foreign body in soft tissue 01/11/2005 08/28/2016 documented as of this encounter (statuses as of 01/26/2022) [facility] History of Past illness Narrative* Problem Noted Date Resolved Date Fascial defect 05/16/2021 05/19/2021 Last Assessment & Plan: -Scheduled for surgery Hypoglycemia due to type 2 diabetes mellitus 08/23/2020 Morbid obesity due to excess calories 04/12/2016 10/12/2016 Weakness 02/24/2016 08/28/2016 Myofascial pain 01/04/2016 08/28/2016 Acute nonsuppurative otitis media of right ear 0 09/05/2015 08/28/2016 Family history of ischemic heart disease 016 08/28/2016 Mass of forearm 2015 2015 Cicatrix of skin 2015 2015 Ganglion of joint 08/24/2014 08/24/2014 Painful orthopaedic hardware 12/15/2013 Flexor tendon rupture of hand 09/15/2013 Lateral epicondylitis of right elbow 04/07/2013 08/28/2016 Trigger thumb of left hand 11/04/201208/28 Displaced fracture of fifth metatarsal bone of l eft foot 09/08/2012 08/28/2016 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2016 Muscle mass 11/13/2011 08/28/2016 Type II 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, not stated as uncontrolled(250.60) 05/03/2011 04/25/2015 Lateral epicondylitis of left elbow 05/01/2011 08/23/2011 Wound dehiscence, surgical 04/03/201108/22 Post-operative state 03/29/2011 08/23/2011 Dizziness and giddiness 03/26/2011 08/29/19 17 Hereditary and idiopathic peripheral neuropathy 12/19/2010 08/28/2016 Lateral epicondylitis of elbow 12/11/2010 0 08/23/2011 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, 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) 11/01/2009 Sprain of ankle, unspecified site 11/01/2009 08/28/2016 Thoracic or lumbosacral neuritis or radiculitis, unspecified 06/09/2009 08/28/2016 Wrist tendonitis 05/10/2009 08/23/2011 Pain in limb 08/29/2006 08/28/2016 Contusion of foot 08/29/2006 08/28/2016 PLANTAR Fasciitis 07/31/2005 08/28/2016 Residual foreign body in soft tissue 01/11/2005 08/28/2016 documented as of this encounter (statuses as of 02/02/2022) [facility] History of Past illness Narrative* Problem Noted Date Resolved Date Fascial defect 05/16/2021 05/19/2021 Last Assessment & Plan: -Scheduled for surgery Hypoglycemia due to type 2 diabetes mellitus 08/23/2020 Morbid obesity due to excess calories 04/12/2016 10/12/2016 Weakness 02/24/2016 08/28/2016 Myofascial pain 01/04/2016 08/28/2016 Acute nonsuppurative otitis media of right ear 0 09/05/2015 08/28/2016 Family history of ischemic heart disease 016 08/28/2016 Mass of forearm 2015 2015 Cicatrix of skin 2015 2015 Ganglion of joint 08/24/2014 08/24/2014 Painful orthopaedic hardware 12/15/2013 Flexor tendon rupture of hand 09/15/2013 Lateral epicondylitis of right elbow 04/07/2013 08/28/2016 Trigger thumb of left hand 11/04/201208/28 Displaced fracture of fifth metatarsal bone of l eft foot 09/08/2012 08/28/2016 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2016 Muscle mass 11/13/2011 08/28/2016 Type II 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, not stated as uncontrolled(250.60) 05/03/2011 04/25/2015 Lateral epicondylitis of left elbow 05/01/2011 08/23/2011 Wound dehiscence, surgical 04/03/201108/22 Post-operative state 03/29/2011 08/23/2011 Dizziness and giddiness 03/26/2011 08/29/19 17 Hereditary and idiopathic peripheral neuropathy 12/19/2010 08/28/2016 Lateral epicondylitis of elbow 12/11/2010 0 08/23/2011 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, 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) 11/01/2009 Sprain of ankle, unspecified site 11/01/2009 08/28/2016 Thoracic or lumbosacral neuritis or radiculitis, unspecified 06/09/2009 08/28/2016 Wrist tendonitis 05/10/2009 08/23/2011 Pain in limb 08/29/2006 08/28/2016 Contusion of foot 08/29/2006 08/28/2016 PLANTAR Fasciitis 07/31/2005 08/28/2016 Residual foreign body in soft tissue 01/11/2005 08/28/2016 documented as of this encounter (statuses as of 02/03/2022) [facility] History of Past illness Narrative* Problem Noted Date Resolved Date Fascial defect 05/16/2021 05/19/2021 Last Assessment & Plan: -Scheduled for surgery Hypoglycemia due to type 2 diabetes mellitus 08/23/2020 Morbid obesity due to excess calories 04/12/2016 10/12/2016 Weakness 02/24/2016 08/28/2016 Myofascial pain 01/04/2016 08/28/2016 Acute nonsuppurative otitis media of right ear 0 09/05/2015 08/28/2016 Family history of ischemic heart disease 016 08/28/2016 Mass of forearm 2015 2015 Cicatrix of skin 2015 2015 Ganglion of joint 08/24/2014 08/24/2014 Painful orthopaedic hardware 12/15/2013 Flexor tendon rupture of hand 09/15/2013 Lateral epicondylitis of right elbow 04/07/2013 08/28/2016 Trigger thumb of left hand 11/04/201208/28 Displaced fracture of fifth metatarsal bone of l eft foot 09/08/2012 08/28/2016 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2016 Muscle mass 11/13/2011 08/28/2016 Type II 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, not stated as uncontrolled(250.60) 05/03/2011 04/25/2015 Lateral epicondylitis of left elbow 05/01/2011 08/23/2011 Wound dehiscence, surgical 04/03/201108/22 Post-operative state 03/29/2011 08/23/2011 Dizziness and giddiness 03/26/2011 08/29/19 17 Hereditary and idiopathic peripheral neuropathy 12/19/2010 08/28/2016 Lateral epicondylitis of elbow 12/11/2010 0 08/23/2011 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, 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) 11/01/2009 Sprain of ankle, unspecified site 11/01/2009 08/28/2016 Thoracic or lumbosacral neuritis or radiculitis, unspecified 06/09/2009 08/28/2016 Wrist tendonitis 05/10/2009 08/23/2011 Pain in limb 08/29/2006 08/28/2016 Contusion of foot 08/29/2006 08/28/2016 PLANTAR Fasciitis 07/31/2005 08/28/2016 Residual foreign body in soft tissue 01/11/2005 08/28/2016 documented as of this encounter (statuses as of 02/13/2022) [facility] History of Past illness Narrative* Problem Noted Date Resolved Date Fascial defect 05/16/2021 05/19/2021 Last Assessment & Plan: -Scheduled for surgery Hypoglycemia due to type 2 diabetes mellitus 08/23/2020 Morbid obesity due to excess calories 04/12/2016 10/12/2016 Weakness 02/24/2016 08/28/2016 Myofascial pain 01/04/2016 08/28/2016 Acute nonsuppurative otitis media of right ear 0 09/05/2015 08/28/2016 Family history of ischemic heart disease 016 08/28/2016 Mass of forearm 2015 2015 Cicatrix of skin 2015 2015 Ganglion of joint 08/24/2014 08/24/2014 Painful orthopaedic hardware 12/15/2013 Flexor tendon rupture of hand 09/15/2013 Lateral epicondylitis of right elbow 04/07/2013 08/28/2016 Trigger thumb of left hand 11/04/201208/28 Displaced fracture of fifth metatarsal bone of l eft foot 09/08/2012 08/28/2016 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2016 Muscle mass 11/13/2011 08/28/2016 Type II 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, not stated as uncontrolled(250.60) 05/03/2011 04/25/2015 Lateral epicondylitis of left elbow 05/01/2011 08/23/2011 Wound dehiscence, surgical 04/03/201108/22 Post-operative state 03/29/2011 08/23/2011 Dizziness and giddiness 03/26/2011 08/29/19 17 Hereditary and idiopathic peripheral neuropathy 12/19/2010 08/28/2016 Lateral epicondylitis of elbow 12/11/2010 0 08/23/2011 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, 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) 11/01/2009 Sprain of ankle, unspecified site 11/01/2009 08/28/2016 Thoracic or lumbosacral neuritis or radiculitis, unspecified 06/09/2009 08/28/2016 Wrist tendonitis 05/10/2009 08/23/2011 Pain in limb 08/29/2006 08/28/2016 Contusion of foot 08/29/2006 08/28/2016 PLANTAR Fasciitis 07/31/2005 08/28/2016 Residual foreign body in soft tissue 01/11/2005 08/28/2016 documented as of this encounter (statuses as of 02/13/2022) [facility] History of Past illness Narrative* Problem Noted Date Resolved Date Fascial defect 05/16/2021 05/19/2021 Last Assessment & Plan: -Scheduled for surgery Hypoglycemia due to type 2 diabetes mellitus 08/23/2020 Morbid obesity due to excess calories 04/12/2016 10/12/2016 Weakness 02/24/2016 08/28/2016 Myofascial pain 01/04/2016 08/28/2016 Acute nonsuppurative otitis media of right ear 0 09/05/2015 08/28/2016 Family history of ischemic heart disease 016 08/28/2016 Mass of forearm 2015 2015 Cicatrix of skin 2015 2015 Ganglion of joint 08/24/2014 08/24/2014 Painful orthopaedic hardware 12/15/2013 Flexor tendon rupture of hand 09/15/2013 Lateral epicondylitis of right elbow 04/07/2013 08/28/2016 Trigger thumb of left hand 11/04/201208/28 Displaced fracture of fifth metatarsal bone of l eft foot 09/08/2012 08/28/2016 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2016 Muscle mass 11/13/2011 08/28/2016 Type II 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, not stated as uncontrolled(250.60) 05/03/2011 04/25/2015 Lateral epicondylitis of left elbow 05/01/2011 08/23/2011 Wound dehiscence, surgical 04/03/201108/22 Post-operative state 03/29/2011 08/23/2011 Dizziness and giddiness 03/26/2011 08/29/19 17 Hereditary and idiopathic peripheral neuropathy 12/19/2010 08/28/2016 Lateral epicondylitis of elbow 12/11/2010 0 08/23/2011 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, 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) 11/01/2009 Sprain of ankle, unspecified site 11/01/2009 08/28/2016 Thoracic or lumbosacral neuritis or radiculitis, unspecified 06/09/2009 08/28/2016 Wrist tendonitis 05/10/2009 08/23/2011 Pain in limb 08/29/2006 08/28/2016 Contusion of foot 08/29/2006 08/28/2016 PLANTAR Fasciitis 07/31/2005 08/28/2016 Residual foreign body in soft tissue 01/11/2005 08/28/2016 documented as of this encounter (statuses as of 02/14/2022) [facility]04-05-2022 History of Past illness Narrative* Problem Noted Date Resolved Date Fascial defect 05/16/2021 05/19/2021 Last Assessment & Plan: -Scheduled for surgery Hypoglycemia due to type 2 diabetes mellitus 08/23/2020 Morbid obesity due to excess calories 04/12/2016 10/12/2016 Weakness 02/24/2016 08/28/2016 Myofascial pain 01/04/2016 08/28/2016 Acute nonsuppurative otitis media of right ear 0 09/05/2015 08/28/2016 Family history of ischemic heart disease 016 08/28/2016 Mass of forearm 2015 2015 Cicatrix of skin 2015 2015 Ganglion of joint 08/24/2014 08/24/2014 Painful orthopaedic hardware 12/15/2013 Flexor tendon rupture of hand 09/15/2013 Lateral epicondylitis of right elbow 04/07/2013 08/28/2016 Trigger thumb of left hand 11/04/201208/28 Displaced fracture of fifth metatarsal bone of l eft foot 09/08/2012 08/28/2016 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2016 Muscle mass 11/13/2011 08/28/2016 Type II 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, not stated as uncontrolled(250.60) 05/03/2011 04/25/2015 Lateral epicondylitis of left elbow 05/01/2011 08/23/2011 Wound dehiscence, surgical 04/03/201108/22 Post-operative state 03/29/2011 08/23/2011 Dizziness and giddiness 03/26/2011 08/29/19 17 Hereditary and idiopathic peripheral neuropathy 12/19/2010 08/28/2016 Lateral epicondylitis of elbow 12/11/2010 0 08/23/2011 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, 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) 11/01/2009 Sprain of ankle, unspecified site 11/01/2009 08/28/2016 Thoracic or lumbosacral neuritis or radiculitis, unspecified 06/09/2009 08/28/2016 Wrist tendonitis 05/10/2009 08/23/2011 Pain in limb 08/29/2006 08/28/2016 Contusion of foot 08/29/2006 08/28/2016 PLANTAR Fasciitis 07/31/2005 08/28/2016 Residual foreign body in soft tissue 01/11/2005 08/28/2016 documented as of this encounter (statuses as of 02/16/2022) [facility]04[facility] History of Past illness Narrative* Problem Noted Date Resolved Date Fascial defect 05/16/2021 05/19/2021 Last Assessment & Plan: -Scheduled for surgery Hypoglycemia due to type 2 diabetes mellitus 08/23/2020 Morbid obesity due to excess calories 04/12/2016 10/12/2016 Weakness 02/24/2016 08/28/2016 Myofascial pain 01/04/2016 08/28/2016 Acute nonsuppurative otitis media of right ear 0 09/05/2015 08/28/2016 Family history of ischemic heart disease 016 08/28/2016 Mass of forearm 2015 2015 Cicatrix of skin 2015 2015 Ganglion of joint 08/24/2014 08/24/2014 Painful orthopaedic hardware 12/15/2013 Flexor tendon rupture of hand 09/15/2013 Lateral epicondylitis of right elbow 04/07/2013 08/28/2016 Trigger thumb of left hand 11/04/201208/28 Displaced fracture of fifth metatarsal bone of l eft foot 09/08/2012 08/28/2016 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2016 Muscle mass 11/13/2011 08/28/2016 Type II 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, not stated as uncontrolled(250.60) 05/03/2011 04/25/2015 Lateral epicondylitis of left elbow 05/01/2011 08/23/2011 Wound dehiscence, surgical 04/03/201108/22 Post-operative state 03/29/2011 08/23/2011 Dizziness and giddiness 03/26/2011 08/29/19 17 Hereditary and idiopathic peripheral neuropathy 12/19/2010 08/28/2016 Lateral epicondylitis of elbow 12/11/2010 0 08/23/2011 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, 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) 11/01/2009 Sprain of ankle, unspecified site 11/01/2009 08/28/2016 Thoracic or lumbosacral neuritis or radiculitis, unspecified 06/09/2009 08/28/2016 Wrist tendonitis 05/10/2009 08/23/2011 Pain in limb 08/29/2006 08/28/2016 Contusion of foot 08/29/2006 08/28/2016 PLANTAR Fasciitis 07/31/2005 08/28/2016 Residual foreign body in soft tissue 01/11/2005 08/28/2016 documented as of this encounter (statuses as of 03/02/2022) [facility]04[facility]22 History of Past illness Narrative* Problem Noted Date Resolved Date Fascial defect 05/16/2021 05/19/2021 Last Assessment & Plan: -Scheduled for surgery Hypoglycemia due to type 2 diabetes mellitus 08/23/2020 Morbid obesity due to excess calories 04/12/2016 10/12/2016 Weakness 02/24/2016 08/28/2016 Myofascial pain 01/04/2016 08/28/2016 Acute nonsuppurative otitis media of right ear 0 09/05/2015 08/28/2016 Family history of ischemic heart disease 016 08/28/2016 Mass of forearm 2015 2015 Cicatrix of skin 2015 2015 Ganglion of joint 08/24/2014 08/24/2014 Painful orthopaedic hardware 12/15/2013 Flexor tendon rupture of hand 09/15/2013 Lateral epicondylitis of right elbow 04/07/2013 08/28/2016 Trigger thumb of left hand 11/04/201208/28 Displaced fracture of fifth metatarsal bone of l eft foot 09/08/2012 08/28/2016 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2016 Muscle mass 11/13/2011 08/28/2016 Type II 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, not stated as uncontrolled(250.60) 05/03/2011 04/25/2015 Lateral epicondylitis of left elbow 05/01/2011 08/23/2011 Wound dehiscence, surgical 04/03/201108/22 Post-operative state 03/29/2011 08/23/2011 Dizziness and giddiness 03/26/2011 08/29/19 17 Hereditary and idiopathic peripheral neuropathy 12/19/2010 08/28/2016 Lateral epicondylitis of elbow 12/11/2010 0 08/23/2011 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, 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) 11/01/2009 Sprain of ankle, unspecified site 11/01/2009 08/28/2016 Thoracic or lumbosacral neuritis or radiculitis, unspecified 06/09/2009 08/28/2016 Wrist tendonitis 05/10/2009 08/23/2011 Pain in limb 08/29/2006 08/28/2016 Contusion of foot 08/29/2006 08/28/2016 PLANTAR Fasciitis 07/31/2005 08/28/2016 Residual foreign body in soft tissue 01/11/2005 08/28/2016 documented as of this encounter (statuses as of 03/08/2022) [facility] History of Past illness Narrative* Problem Noted Date Resolved Date Fascial defect 05/16/2021 05/19/2021 Last Assessment & Plan: -Scheduled for surgery Hypoglycemia due to type 2 diabetes mellitus 08/23/2020 Morbid obesity due to excess calories 04/12/2016 10/12/2016 Weakness 02/24/2016 08/28/2016 Myofascial pain 01/04/2016 08/28/2016 Acute nonsuppurative otitis media of right ear 0 09/05/2015 08/28/2016 Family history of ischemic heart disease 016 08/28/2016 Mass of forearm 2015 2015 Cicatrix of skin 2015 2015 Ganglion of joint 08/24/2014 08/24/2014 Painful orthopaedic hardware 12/15/2013 Flexor tendon rupture of hand 09/15/2013 Lateral epicondylitis of right elbow 04/07/2013 08/28/2016 Trigger thumb of left hand 11/04/201208/28 Displaced fracture of fifth metatarsal bone of l eft foot 09/08/2012 08/28/2016 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2016 Muscle mass 11/13/2011 08/28/2016 Type II 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, not stated as uncontrolled(250.60) 05/03/2011 04/25/2015 Lateral epicondylitis of left elbow 05/01/2011 08/23/2011 Wound dehiscence, surgical 04/03/201108/22 Post-operative state 03/29/2011 08/23/2011 Dizziness and giddiness 03/26/2011 08/29/19 17 Hereditary and idiopathic peripheral neuropathy 12/19/2010 08/28/2016 Lateral epicondylitis of elbow 12/11/2010 0 08/23/2011 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, 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) 11/01/2009 Sprain of ankle, unspecified site 11/01/2009 08/28/2016 Thoracic or lumbosacral neuritis or radiculitis, unspecified 06/09/2009 08/28/2016 Wrist tendonitis 05/10/2009 08/23/2011 Pain in limb 08/29/2006 08/28/2016 Contusion of foot 08/29/2006 08/28/2016 PLANTAR Fasciitis 07/31/2005 08/28/2016 Residual foreign body in soft tissue 01/11/2005 08/28/2016 documented as of this encounter (statuses as of 03/08/2022) [facility] History of Past illness Narrative* Problem Noted Date Resolved Date Fascial defect 05/16/2021 05/19/2021 Last Assessment & Plan: -Scheduled for surgery Hypoglycemia due to type 2 diabetes mellitus 08/23/2020 Morbid obesity due to excess calories 04/12/2016 10/12/2016 Weakness 02/24/2016 08/28/2016 Myofascial pain 01/04/2016 08/28/2016 Acute nonsuppurative otitis media of right ear 0 09/05/2015 08/28/2016 Family history of ischemic heart disease 016 08/28/2016 Mass of forearm 2015 2015 Cicatrix of skin 2015 2015 Ganglion of joint 08/24/2014 08/24/2014 Painful orthopaedic hardware 12/15/2013 Flexor tendon rupture of hand 09/15/2013 Lateral epicondylitis of right elbow 04/07/2013 08/28/2016 Trigger thumb of left hand 11/04/201208/28 Displaced fracture of fifth metatarsal bone of l eft foot 09/08/2012 08/28/2016 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2016 Muscle mass 11/13/2011 08/28/2016 Type II 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, not stated as uncontrolled(250.60) 05/03/2011 04/25/2015 Lateral epicondylitis of left elbow 05/01/2011 08/23/2011 Wound dehiscence, surgical 04/03/201108/22 Post-operative state 03/29/2011 08/23/2011 Dizziness and giddiness 03/26/2011 08/29/19 17 Hereditary and idiopathic peripheral neuropathy 12/19/2010 08/28/2016 Lateral epicondylitis of elbow 12/11/2010 0 08/23/2011 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, 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) 11/01/2009 Sprain of ankle, unspecified site 11/01/2009 08/28/2016 Thoracic or lumbosacral neuritis or radiculitis, unspecified 06/09/2009 08/28/2016 Wrist tendonitis 05/10/2009 08/23/2011 Pain in limb 08/29/2006 08/28/2016 Contusion of foot 08/29/2006 08/28/2016 PLANTAR Fasciitis 07/31/2005 08/28/2016 Residual foreign body in soft tissue 01/11/2005 08/28/2016 documented as of this encounter (statuses as of 03/14/2022) [facility] History of Past illness Narrative* Problem Noted Date Resolved Date Fascial defect 05/16/2021 05/19/2021 Last Assessment & Plan: -Scheduled for surgery Hypoglycemia due to type 2 diabetes mellitus 08/23/2020 Morbid obesity due to excess calories 04/12/2016 10/12/2016 Weakness 02/24/2016 08/28/2016 Myofascial pain 01/04/2016 08/28/2016 Acute nonsuppurative otitis media of right ear 0 09/05/2015 08/28/2016 Family history of ischemic heart disease 016 08/28/2016 Mass of forearm 2015 2015 Cicatrix of skin 2015 2015 Ganglion of joint 08/24/2014 08/24/2014 Painful orthopaedic hardware 12/15/2013 Flexor tendon rupture of hand 09/15/2013 Lateral epicondylitis of right elbow 04/07/2013 08/28/2016 Trigger thumb of left hand 11/04/201208/28 Displaced fracture of fifth metatarsal bone of l eft foot 09/08/2012 08/28/2016 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2016 Muscle mass 11/13/2011 08/28/2016 Type II 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, not stated as uncontrolled(250.60) 05/03/2011 04/25/2015 Lateral epicondylitis of left elbow 05/01/2011 08/23/2011 Wound dehiscence, surgical 04/03/201108/22 Post-operative state 03/29/2011 08/23/2011 Dizziness and giddiness 03/26/2011 08/29/19 17 Hereditary and idiopathic peripheral neuropathy 12/19/2010 08/28/2016 Lateral epicondylitis of elbow 12/11/2010 0 08/23/2011 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, 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) 11/01/2009 Sprain of ankle, unspecified site 11/01/2009 08/28/2016 Thoracic or lumbosacral neuritis or radiculitis, unspecified 06/09/2009 08/28/2016 Wrist tendonitis 05/10/2009 08/23/2011 Pain in limb 08/29/2006 08/28/2016 Contusion of foot 08/29/2006 08/28/2016 PLANTAR Fasciitis 07/31/2005 08/28/2016 Residual foreign body in soft tissue 01/11/2005 08/28/2016 documented as of this encounter (statuses as of 03/15/2022) [facility] History of Past illness Narrative* Problem Noted Date Resolved Date Fascial defect 05/16/2021 05/19/2021 Last Assessment & Plan: -Scheduled for surgery Hypoglycemia due to type 2 diabetes mellitus 08/23/2020 Morbid obesity due to excess calories 04/12/2016 10/12/2016 Weakness 02/24/2016 08/28/2016 Myofascial pain 01/04/2016 08/28/2016 Acute nonsuppurative otitis media of right ear 0 09/05/2015 08/28/2016 Family history of ischemic heart disease 016 08/28/2016 Mass of forearm 2015 2015 Cicatrix of skin 2015 2015 Ganglion of joint 08/24/2014 08/24/2014 Painful orthopaedic hardware 12/15/2013 Flexor tendon rupture of hand 09/15/2013 Lateral epicondylitis of right elbow 04/07/2013 08/28/2016 Trigger thumb of left hand 11/04/201208/28 Displaced fracture of fifth metatarsal bone of l eft foot 09/08/2012 08/28/2016 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2016 Muscle mass 11/13/2011 08/28/2016 Type II 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, not stated as uncontrolled(250.60) 05/03/2011 04/25/2015 Lateral epicondylitis of left elbow 05/01/2011 08/23/2011 Wound dehiscence, surgical 04/03/201108/22 Post-operative state 03/29/2011 08/23/2011 Dizziness and giddiness 03/26/2011 08/29/19 17 Hereditary and idiopathic peripheral neuropathy 12/19/2010 08/28/2016 Lateral epicondylitis of elbow 12/11/2010 0 08/23/2011 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, 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) 11/01/2009 Sprain of ankle, unspecified site 11/01/2009 08/28/2016 Thoracic or lumbosacral neuritis or radiculitis, unspecified 06/09/2009 08/28/2016 Wrist tendonitis 05/10/2009 08/23/2011 Pain in limb 08/29/2006 08/28/2016 Contusion of foot 08/29/2006 08/28/2016 PLANTAR Fasciitis 07/31/2005 08/28/2016 Residual foreign body in soft tissue 01/11/2005 08/28/2016 documented as of this encounter (statuses as of 03/28/2022) [facility] History of Past illness Narrative* Problem Noted Date Resolved Date Fascial defect 05/16/2021 05/19/2021 Last Assessment & Plan: -Scheduled for surgery Hypoglycemia due to type 2 diabetes mellitus 08/23/2020 Morbid obesity due to excess calories 04/12/2016 10/12/2016 Weakness 02/24/2016 08/28/2016 Myofascial pain 01/04/2016 08/28/2016 Acute nonsuppurative otitis media of right ear 0 09/05/2015 08/28/2016 Family history of ischemic heart disease 016 08/28/2016 Mass of forearm 2015 2015 Cicatrix of skin 2015 2015 Ganglion of joint 08/24/2014 08/24/2014 Painful orthopaedic hardware 12/15/2013 Flexor tendon rupture of hand 09/15/2013 Lateral epicondylitis of right elbow 04/07/2013 08/28/2016 Trigger thumb of left hand 11/04/201208/28 Displaced fracture of fifth metatarsal bone of l eft foot 09/08/2012 08/28/2016 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2016 Muscle mass 11/13/2011 08/28/2016 Type II 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, not stated as uncontrolled(250.60) 05/03/2011 04/25/2015 Lateral epicondylitis of left elbow 05/01/2011 08/23/2011 Wound dehiscence, surgical 04/03/201108/22 Post-operative state 03/29/2011 08/23/2011 Dizziness and giddiness 03/26/2011 08/29/19 17 Hereditary and idiopathic peripheral neuropathy 12/19/2010 08/28/2016 Lateral epicondylitis of elbow 12/11/2010 0 08/23/2011 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, 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) 11/01/2009 Sprain of ankle, unspecified site 11/01/2009 08/28/2016 Thoracic or lumbosacral neuritis or radiculitis, unspecified 06/09/2009 08/28/2016 Wrist tendonitis 05/10/2009 08/23/2011 Pain in limb 08/29/2006 08/28/2016 Contusion of foot 08/29/2006 08/28/2016 PLANTAR Fasciitis 07/31/2005 08/28/2016 Residual foreign body in soft tissue 01/11/2005 08/28/2016 documented as of this encounter (statuses as of 04/02/2022) [facility] History of Past illness Narrative* Problem Noted Date Resolved Date Fascial defect 05/16/2021 05/19/2021 Last Assessment & Plan: -Scheduled for surgery Hypoglycemia due to type 2 diabetes mellitus 08/23/2020 Morbid obesity due to excess calories 04/12/2016 10/12/2016 Weakness 02/24/2016 08/28/2016 Myofascial pain 01/04/2016 08/28/2016 Acute nonsuppurative otitis media of right ear 0 09/05/2015 08/28/2016 Family history of ischemic heart disease 016 08/28/2016 Mass of forearm 2015 2015 Cicatrix of skin 2015 2015 Ganglion of joint 08/24/2014 08/24/2014 Painful orthopaedic hardware 12/15/2013 Flexor tendon rupture of hand 09/15/2013 Lateral epicondylitis of right elbow 04/07/2013 08/28/2016 Trigger thumb of left hand 11/04/201208/28 Displaced fracture of fifth metatarsal bone of l eft foot 09/08/2012 08/28/2016 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2016 Muscle mass 11/13/2011 08/28/2016 Type II 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, not stated as uncontrolled(250.60) 05/03/2011 04/25/2015 Lateral epicondylitis of left elbow 05/01/2011 08/23/2011 Wound dehiscence, surgical 04/03/201108/22 Post-operative state 03/29/2011 08/23/2011 Dizziness and giddiness 03/26/2011 08/29/19 17 Hereditary and idiopathic peripheral neuropathy 12/19/2010 08/28/2016 Lateral epicondylitis of elbow 12/11/2010 0 08/23/2011 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, 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) 11/01/2009 Sprain of ankle, unspecified site 11/01/2009 08/28/2016 Thoracic or lumbosacral neuritis or radiculitis, unspecified 06/09/2009 08/28/2016 Wrist tendonitis 05/10/2009 08/23/2011 Pain in limb 08/29/2006 08/28/2016 Contusion of foot 08/29/2006 08/28/2016 PLANTAR Fasciitis 07/31/2005 08/28/2016 Residual foreign body in soft tissue 01/11/2005 08/28/2016 documented as of this encounter (statuses as of 04/02/2022) [facility] History of Past illness Narrative* Problem Noted Date Resolved Date Fascial defect 05/16/2021 05/19/2021 Last Assessment & Plan: -Scheduled for surgery Hypoglycemia due to type 2 diabetes mellitus 08/23/2020 Morbid obesity due to excess calories 04/12/2016 10/12/2016 Weakness 02/24/2016 08/28/2016 Myofascial pain 01/04/2016 08/28/2016 Acute nonsuppurative otitis media of right ear 0 09/05/2015 08/28/2016 Family history of ischemic heart disease 016 08/28/2016 Mass of forearm 2015 2015 Cicatrix of skin 2015 2015 Ganglion of joint 08/24/2014 08/24/2014 Painful orthopaedic hardware 12/15/2013 Flexor tendon rupture of hand 09/15/2013 Lateral epicondylitis of right elbow 04/07/2013 08/28/2016 Trigger thumb of left hand 11/04/201208/28 Displaced fracture of fifth metatarsal bone of l eft foot 09/08/2012 08/28/2016 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2016 Muscle mass 11/13/2011 08/28/2016 Type II 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, not stated as uncontrolled(250.60) 05/03/2011 04/25/2015 Lateral epicondylitis of left elbow 05/01/2011 08/23/2011 Wound dehiscence, surgical 04/03/201108/22 Post-operative state 03/29/2011 08/23/2011 Dizziness and giddiness 03/26/2011 08/29/19 17 Hereditary and idiopathic peripheral neuropathy 12/19/2010 08/28/2016 Lateral epicondylitis of elbow 12/11/2010 0 08/23/2011 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, 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) 11/01/2009 Sprain of ankle, unspecified site 11/01/2009 08/28/2016 Thoracic or lumbosacral neuritis or radiculitis, unspecified 06/09/2009 08/28/2016 Wrist tendonitis 05/10/2009 08/23/2011 Pain in limb 08/29/2006 08/28/2016 Contusion of foot 08/29/2006 08/28/2016 PLANTAR Fasciitis 07/31/2005 08/28/2016 Residual foreign body in soft tissue 01/11/2005 08/28/2016 documented as of this encounter (statuses as of 04/04/2022) [facility] History of Past illness Narrative* Problem Noted Date Resolved Date Fascial defect 05/16/2021 05/19/2021 Last Assessment & Plan: -Scheduled for surgery Hypoglycemia due to type 2 diabetes mellitus 08/23/2020 Morbid obesity due to excess calories 04/12/2016 10/12/2016 Weakness 02/24/2016 08/28/2016 Myofascial pain 01/04/2016 08/28/2016 Acute nonsuppurative otitis media of right ear 0 09/05/2015 08/28/2016 Family history of ischemic heart disease 016 08/28/2016 Mass of forearm 2015 2015 Cicatrix of skin 2015 2015 Ganglion of joint 08/24/2014 08/24/2014 Painful orthopaedic hardware 12/15/2013 Flexor tendon rupture of hand 09/15/2013 Lateral epicondylitis of right elbow 04/07/2013 08/28/2016 Trigger thumb of left hand 11/04/201208/28 Displaced fracture of fifth metatarsal bone of l eft foot 09/08/2012 08/28/2016 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2016 Muscle mass 11/13/2011 08/28/2016 Type II 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, not stated as uncontrolled(250.60) 05/03/2011 04/25/2015 Lateral epicondylitis of left elbow 05/01/2011 08/23/2011 Wound dehiscence, surgical 04/03/201108/22 Post-operative state 03/29/2011 08/23/2011 Dizziness and giddiness 03/26/2011 08/29/19 17 Hereditary and idiopathic peripheral neuropathy 12/19/2010 08/28/2016 Lateral epicondylitis of elbow 12/11/2010 0 08/23/2011 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, 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) 11/01/2009 Sprain of ankle, unspecified site 11/01/2009 08/28/2016 Thoracic or lumbosacral neuritis or radiculitis, unspecified 06/09/2009 08/28/2016 Wrist tendonitis 05/10/2009 08/23/2011 Pain in limb 08/29/2006 08/28/2016 Contusion of foot 08/29/2006 08/28/2016 PLANTAR Fasciitis 07/31/2005 08/28/2016 Residual foreign body in soft tissue 01/11/2005 08/28/2016 documented as of this encounter (statuses as of 04/10/2022) [facility] History of Past illness Narrative* Problem Noted Date Resolved Date Fascial defect 05/16/2021 05/19/2021 Last Assessment & Plan: -Scheduled for surgery Hypoglycemia due to type 2 diabetes mellitus 08/23/2020 Morbid obesity due to excess calories 04/12/2016 10/12/2016 Weakness 02/24/2016 08/28/2016 Myofascial pain 01/04/2016 08/28/2016 Acute nonsuppurative otitis media of right ear 0 09/05/2015 08/28/2016 Family history of ischemic heart disease 016 08/28/2016 Mass of forearm 2015 2015 Cicatrix of skin 2015 2015 Ganglion of joint 08/24/2014 08/24/2014 Painful orthopaedic hardware 12/15/2013 Flexor tendon rupture of hand 09/15/2013 Lateral epicondylitis of right elbow 04/07/2013 08/28/2016 Trigger thumb of left hand 11/04/201208/28 Displaced fracture of fifth metatarsal bone of l eft foot 09/08/2012 08/28/2016 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2016 Muscle mass 11/13/2011 08/28/2016 Type II 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, not stated as uncontrolled(250.60) 05/03/2011 04/25/2015 Lateral epicondylitis of left elbow 05/01/2011 08/23/2011 Wound dehiscence, surgical 04/03/201108/22 Post-operative state 03/29/2011 08/23/2011 Dizziness and giddiness 03/26/2011 08/29/19 17 Hereditary and idiopathic peripheral neuropathy 12/19/2010 08/28/2016 Lateral epicondylitis of elbow 12/11/2010 0 08/23/2011 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, 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) 11/01/2009 Sprain of ankle, unspecified site 11/01/2009 08/28/2016 Thoracic or lumbosacral neuritis or radiculitis, unspecified 06/09/2009 08/28/2016 Wrist tendonitis 05/10/2009 08/23/2011 Pain in limb 08/29/2006 08/28/2016 Contusion of foot 08/29/2006 08/28/2016 PLANTAR Fasciitis 07/31/2005 08/28/2016 Residual foreign body in soft tissue 01/11/2005 08/28/2016 documented as of this encounter (statuses as of 04/11/2022) [facility]04-05-2022 History of Past illness Narrative* Problem Noted Date Resolved Date Fascial defect 05/16/2021 05/19/2021 Last Assessment & Plan: -Scheduled for surgery Hypoglycemia due to type 2 diabetes mellitus 08/23/2020 Morbid obesity due to excess calories 04/12/2016 10/12/2016 Weakness 02/24/2016 08/28/2016 Myofascial pain 01/04/2016 08/28/2016 Acute nonsuppurative otitis media of right ear 0 09/05/2015 08/28/2016 Family history of ischemic heart disease 016 08/28/2016 Mass of forearm 2015 2015 Cicatrix of skin 2015 2015 Ganglion of joint 08/24/2014 08/24/2014 Painful orthopaedic hardware 12/15/2013 Flexor tendon rupture of hand 09/15/2013 Lateral epicondylitis of right elbow 04/07/2013 08/28/2016 Trigger thumb of left hand 11/04/201208/28 Displaced fracture of fifth metatarsal bone of l eft foot 09/08/2012 08/28/2016 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2016 Muscle mass 11/13/2011 08/28/2016 Type II 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, not stated as uncontrolled(250.60) 05/03/2011 04/25/2015 Lateral epicondylitis of left elbow 05/01/2011 08/23/2011 Wound dehiscence, surgical 04/03/201108/22 Post-operative state 03/29/2011 08/23/2011 Dizziness and giddiness 03/26/2011 08/29/19 17 Hereditary and idiopathic peripheral neuropathy 12/19/2010 08/28/2016 Lateral epicondylitis of elbow 12/11/2010 0 08/23/2011 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, 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) 11/01/2009 Sprain of ankle, unspecified site 11/01/2009 08/28/2016 Thoracic or lumbosacral neuritis or radiculitis, unspecified 06/09/2009 08/28/2016 Wrist tendonitis 05/10/2009 08/23/2011 Pain in limb 08/29/2006 08/28/2016 Contusion of foot 08/29/2006 08/28/2016 PLANTAR Fasciitis 07/31/2005 08/28/2016 Residual foreign body in soft tissue 01/11/2005 08/28/2016 documented as of this encounter (statuses as of 04/11/2022) [facility]04[facility] History of Past illness Narrative* Problem Noted Date Resolved Date Fascial defect 05/16/2021 05/19/2021 Last Assessment & Plan: -Scheduled for surgery Hypoglycemia due to type 2 diabetes mellitus 08/23/2020 Morbid obesity due to excess calories 04/12/2016 10/12/2016 Weakness 02/24/2016 08/28/2016 Myofascial pain 01/04/2016 08/28/2016 Acute nonsuppurative otitis media of right ear 0 09/05/2015 08/28/2016 Family history of ischemic heart disease 016 08/28/2016 Mass of forearm 2015 2015 Cicatrix of skin 2015 2015 Ganglion of joint 08/24/2014 08/24/2014 Painful orthopaedic hardware 12/15/2013 Flexor tendon rupture of hand 09/15/2013 Lateral epicondylitis of right elbow 04/07/2013 08/28/2016 Trigger thumb of left hand 11/04/201208/28 Displaced fracture of fifth metatarsal bone of l eft foot 09/08/2012 08/28/2016 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2016 Muscle mass 11/13/2011 08/28/2016 Type II 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, not stated as uncontrolled(250.60) 05/03/2011 04/25/2015 Lateral epicondylitis of left elbow 05/01/2011 08/23/2011 Wound dehiscence, surgical 04/03/201108/22 Post-operative state 03/29/2011 08/23/2011 Dizziness and giddiness 03/26/2011 08/29/19 17 Hereditary and idiopathic peripheral neuropathy 12/19/2010 08/28/2016 Lateral epicondylitis of elbow 12/11/2010 0 08/23/2011 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, 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) 11/01/2009 Sprain of ankle, unspecified site 11/01/2009 08/28/2016 Thoracic or lumbosacral neuritis or radiculitis, unspecified 06/09/2009 08/28/2016 Wrist tendonitis 05/10/2009 08/23/2011 Pain in limb 08/29/2006 08/28/2016 Contusion of foot 08/29/2006 08/28/2016 PLANTAR Fasciitis 07/31/2005 08/28/2016 Residual foreign body in soft tissue 01/11/2005 08/28/2016 documented as of this encounter (statuses as of 04/25/2022) [facility]04[facility]22 History of Past illness Narrative* Problem Noted Date Resolved Date Fascial defect 05/16/2021 05/19/2021 Last Assessment & Plan: -Scheduled for surgery Hypoglycemia due to type 2 diabetes mellitus 08/23/2020 Morbid obesity due to excess calories 04/12/2016 10/12/2016 Weakness 02/24/2016 08/28/2016 Myofascial pain 01/04/2016 08/28/2016 Acute nonsuppurative otitis media of right ear 0 09/05/2015 08/28/2016 Family history of ischemic heart disease 016 08/28/2016 Mass of forearm 2015 2015 Cicatrix of skin 2015 2015 Ganglion of joint 08/24/2014 08/24/2014 Painful orthopaedic hardware 12/15/2013 Flexor tendon rupture of hand 09/15/2013 Lateral epicondylitis of right elbow 04/07/2013 08/28/2016 Trigger thumb of left hand 11/04/201208/28 Displaced fracture of fifth metatarsal bone of l eft foot 09/08/2012 08/28/2016 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2016 Muscle mass 11/13/2011 08/28/2016 Type II 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, not stated as uncontrolled(250.60) 05/03/2011 04/25/2015 Lateral epicondylitis of left elbow 05/01/2011 08/23/2011 Wound dehiscence, surgical 04/03/201108/22 Post-operative state 03/29/2011 08/23/2011 Dizziness and giddiness 03/26/2011 08/29/19 17 Hereditary and idiopathic peripheral neuropathy 12/19/2010 08/28/2016 Lateral epicondylitis of elbow 12/11/2010 0 08/23/2011 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, 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) 11/01/2009 Sprain of ankle, unspecified site 11/01/2009 08/28/2016 Thoracic or lumbosacral neuritis or radiculitis, unspecified 06/09/2009 08/28/2016 Wrist tendonitis 05/10/2009 08/23/2011 Pain in limb 08/29/2006 08/28/2016 Contusion of foot 08/29/2006 08/28/2016 PLANTAR Fasciitis 07/31/2005 08/28/2016 Residual foreign body in soft tissue 01/11/2005 08/28/2016 documented as of this encounter (statuses as of 06/26/2022) [facility]04[facility] History of Past illness Narrative* Problem Noted Date Resolved Date Fascial defect 05/16/2021 05/19/2021 Last Assessment & Plan: -Scheduled for surgery Hypoglycemia due to type 2 diabetes mellitus 08/23/2020 Morbid obesity due to excess calories 04/12/2016 10/12/2016 Weakness 02/24/2016 08/28/2016 Myofascial pain 01/04/2016 08/28/2016 Acute nonsuppurative otitis media of right ear 0 09/05/2015 08/28/2016 Family history of ischemic heart disease 016 08/28/2016 Mass of forearm 2015 2015 Cicatrix of skin 2015 2015 Ganglion of joint 08/24/2014 08/24/2014 Painful orthopaedic hardware 12/15/2013 Flexor tendon rupture of hand 09/15/2013 Lateral epicondylitis of right elbow 04/07/2013 08/28/2016 Trigger thumb of left hand 11/04/201208/28 Displaced fracture of fifth metatarsal bone of l eft foot 09/08/2012 08/28/2016 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2016 Muscle mass 11/13/2011 08/28/2016 Type II 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, not stated as uncontrolled(250.60) 05/03/2011 04/25/2015 Lateral epicondylitis of left elbow 05/01/2011 08/23/2011 Wound dehiscence, surgical 04/03/201108/22 Post-operative state 03/29/2011 08/23/2011 Dizziness and giddiness 03/26/2011 08/29/19 17 Hereditary and idiopathic peripheral neuropathy 12/19/2010 08/28/2016 Lateral epicondylitis of elbow 12/11/2010 0 08/23/2011 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, 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) 11/01/2009 Sprain of ankle, unspecified site 11/01/2009 08/28/2016 Thoracic or lumbosacral neuritis or radiculitis, unspecified 06/09/2009 08/28/2016 Wrist tendonitis 05/10/2009 08/23/2011 Pain in limb 08/29/2006 08/28/2016 Contusion of foot 08/29/2006 08/28/2016 PLANTAR Fasciitis 07/31/2005 08/28/2016 Residual foreign body in soft tissue 01/11/2005 08/28/2016 documented as of this encounter (statuses as of 06/27/2022) [facility] History of Past illness Narrative* Problem Noted Date Resolved Date Fascial defect 05/16/2021 05/19/2021 Last Assessment & Plan: -Scheduled for surgery Hypoglycemia due to type 2 diabetes mellitus 08/23/2020 Morbid obesity due to excess calories 04/12/2016 10/12/2016 Weakness 02/24/2016 08/28/2016 Myofascial pain 01/04/2016 08/28/2016 Acute nonsuppurative otitis media of right ear 0 09/05/2015 08/28/2016 Family history of ischemic heart disease 016 08/28/2016 Mass of forearm 2015 2015 Cicatrix of skin 2015 2015 Ganglion of joint 08/24/2014 08/24/2014 Painful orthopaedic hardware 12/15/2013 Flexor tendon rupture of hand 09/15/2013 Lateral epicondylitis of right elbow 04/07/2013 08/28/2016 Trigger thumb of left hand 11/04/201208/28 Displaced fracture of fifth metatarsal bone of l eft foot 09/08/2012 08/28/2016 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2016 Muscle mass 11/13/2011 08/28/2016 Type II 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, not stated as uncontrolled(250.60) 05/03/2011 04/25/2015 Lateral epicondylitis of left elbow 05/01/2011 08/23/2011 Wound dehiscence, surgical 04/03/201108/22 Post-operative state 03/29/2011 08/23/2011 Dizziness and giddiness 03/26/2011 08/29/19 17 Hereditary and idiopathic peripheral neuropathy 12/19/2010 08/28/2016 Lateral epicondylitis of elbow 12/11/2010 0 08/23/2011 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, 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) 11/01/2009 Sprain of ankle, unspecified site 11/01/2009 08/28/2016 Thoracic or lumbosacral neuritis or radiculitis, unspecified 06/09/2009 08/28/2016 Wrist tendonitis 05/10/2009 08/23/2011 Pain in limb 08/29/2006 08/28/2016 Contusion of foot 08/29/2006 08/28/2016 PLANTAR Fasciitis 07/31/2005 08/28/2016 Residual foreign body in soft tissue 01/11/2005 08/28/2016 documented as of this encounter (statuses as of 07/19/2022) [facility] History of Past illness Narrative* Problem Noted Date Resolved Date Fascial defect 05/16/2021 05/19/2021 Last Assessment & Plan: -Scheduled for surgery Hypoglycemia due to type 2 diabetes mellitus 08/23/2020 Morbid obesity due to excess calories 04/12/2016 10/12/2016 Weakness 02/24/2016 08/28/2016 Myofascial pain 01/04/2016 08/28/2016 Acute nonsuppurative otitis media of right ear 0 09/05/2015 08/28/2016 Family history of ischemic heart disease 016 08/28/2016 Mass of forearm 2015 2015 Cicatrix of skin 2015 2015 Ganglion of joint 08/24/2014 08/24/2014 Painful orthopaedic hardware 12/15/2013 Flexor tendon rupture of hand 09/15/2013 Lateral epicondylitis of right elbow 04/07/2013 08/28/2016 Trigger thumb of left hand 11/04/201208/28 Displaced fracture of fifth metatarsal bone of l eft foot 09/08/2012 08/28/2016 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2016 Muscle mass 11/13/2011 08/28/2016 Type II 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, not stated as uncontrolled(250.60) 05/03/2011 04/25/2015 Lateral epicondylitis of left elbow 05/01/2011 08/23/2011 Wound dehiscence, surgical 04/03/201108/22 Post-operative state 03/29/2011 08/23/2011 Dizziness and giddiness 03/26/2011 08/29/19 17 Hereditary and idiopathic peripheral neuropathy 12/19/2010 08/28/2016 Lateral epicondylitis of elbow 12/11/2010 0 08/23/2011 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, 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) 11/01/2009 Sprain of ankle, unspecified site 11/01/2009 08/28/2016 Thoracic or lumbosacral neuritis or radiculitis, unspecified 06/09/2009 08/28/2016 Wrist tendonitis 05/10/2009 08/23/2011 Pain in limb 08/29/2006 08/28/2016 Contusion of foot 08/29/2006 08/28/2016 PLANTAR Fasciitis 07/31/2005 08/28/2016 Residual foreign body in soft tissue 01/11/2005 08/28/2016 documented as of this encounter (statuses as of 07/20/2022) [facility] History of Past illness Narrative* Problem Noted Date Resolved Date Fascial defect 05/16/2021 05/19/2021 Last Assessment & Plan: -Scheduled for surgery Hypoglycemia due to type 2 diabetes mellitus 08/23/2020 Morbid obesity due to excess calories 04/12/2016 10/12/2016 Weakness 02/24/2016 08/28/2016 Myofascial pain 01/04/2016 08/28/2016 Acute nonsuppurative otitis media of right ear 0 09/05/2015 08/28/2016 Family history of ischemic heart disease 016 08/28/2016 Mass of forearm 2015 2015 Cicatrix of skin 2015 2015 Ganglion of joint 08/24/2014 08/24/2014 Painful orthopaedic hardware 12/15/2013 Flexor tendon rupture of hand 09/15/2013 Lateral epicondylitis of right elbow 04/07/2013 08/28/2016 Trigger thumb of left hand 11/04/201208/28 Displaced fracture of fifth metatarsal bone of l eft foot 09/08/2012 08/28/2016 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2016 Muscle mass 11/13/2011 08/28/2016 Type II 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, not stated as uncontrolled(250.60) 05/03/2011 04/25/2015 Lateral epicondylitis of left elbow 05/01/2011 08/23/2011 Wound dehiscence, surgical 04/03/201108/22 Post-operative state 03/29/2011 08/23/2011 Dizziness and giddiness 03/26/2011 08/29/19 17 Hereditary and idiopathic peripheral neuropathy 12/19/2010 08/28/2016 Lateral epicondylitis of elbow 12/11/2010 0 08/23/2011 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, 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) 11/01/2009 Sprain of ankle, unspecified site 11/01/2009 08/28/2016 Thoracic or lumbosacral neuritis or radiculitis, unspecified 06/09/2009 08/28/2016 Wrist tendonitis 05/10/2009 08/23/2011 Pain in limb 08/29/2006 08/28/2016 Contusion of foot 08/29/2006 08/28/2016 PLANTAR Fasciitis 07/31/2005 08/28/2016 Residual foreign body in soft tissue 01/11/2005 08/28/2016 documented as of this encounter (statuses as of 07/17/2022) [facility] History of Past illness Narrative* Problem Noted Date Resolved Date Fascial defect 05/16/2021 05/19/2021 Last Assessment & Plan: -Scheduled for surgery Hypoglycemia due to type 2 diabetes mellitus 08/23/2020 Morbid obesity due to excess calories 04/12/2016 10/12/2016 Weakness 02/24/2016 08/28/2016 Myofascial pain 01/04/2016 08/28/2016 Acute nonsuppurative otitis media of right ear 0 09/05/2015 08/28/2016 Family history of ischemic heart disease 016 08/28/2016 Mass of forearm 2015 2015 Cicatrix of skin 2015 2015 Ganglion of joint 08/24/2014 08/24/2014 Painful orthopaedic hardware 12/15/2013 Flexor tendon rupture of hand 09/15/2013 Lateral epicondylitis of right elbow 04/07/2013 08/28/2016 Trigger thumb of left hand 11/04/201208/28 Displaced fracture of fifth metatarsal bone of l eft foot 09/08/2012 08/28/2016 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2016 Muscle mass 11/13/2011 08/28/2016 Type II 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, not stated as uncontrolled(250.60) 05/03/2011 04/25/2015 Lateral epicondylitis of left elbow 05/01/2011 08/23/2011 Wound dehiscence, surgical 04/03/201108/22 Post-operative state 03/29/2011 08/23/2011 Dizziness and giddiness 03/26/2011 08/29/19 17 Hereditary and idiopathic peripheral neuropathy 12/19/2010 08/28/2016 Lateral epicondylitis of elbow 12/11/2010 0 08/23/2011 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, 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) 11/01/2009 Sprain of ankle, unspecified site 11/01/2009 08/28/2016 Thoracic or lumbosacral neuritis or radiculitis, unspecified 06/09/2009 08/28/2016 Wrist tendonitis 05/10/2009 08/23/2011 Pain in limb 08/29/2006 08/28/2016 Contusion of foot 08/29/2006 08/28/2016 PLANTAR Fasciitis 07/31/2005 08/28/2016 Residual foreign body in soft tissue 01/11/2005 08/28/2016 documented as of this encounter (statuses as of 07/18/2022) [facility] History of Past illness Narrative* Problem Noted Date Resolved Date Fascial defect 05/16/2021 05/19/2021 Last Assessment & Plan: -Scheduled for surgery Hypoglycemia due to type 2 diabetes mellitus 08/23/2020 Morbid obesity due to excess calories 04/12/2016 10/12/2016 Weakness 02/24/2016 08/28/2016 Myofascial pain 01/04/2016 08/28/2016 Acute nonsuppurative otitis media of right ear 0 09/05/2015 08/28/2016 Family history of ischemic heart disease 016 08/28/2016 Mass of forearm 2015 2015 Cicatrix of skin 2015 2015 Ganglion of joint 08/24/2014 08/24/2014 Painful orthopaedic hardware 12/15/2013 Flexor tendon rupture of hand 09/15/2013 Lateral epicondylitis of right elbow 04/07/2013 08/28/2016 Trigger thumb of left hand 11/04/201208/28 Displaced fracture of fifth metatarsal bone of l eft foot 09/08/2012 08/28/2016 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2016 Muscle mass 11/13/2011 08/28/2016 Type II 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, not stated as uncontrolled(250.60) 05/03/2011 04/25/2015 Lateral epicondylitis of left elbow 05/01/2011 08/23/2011 Wound dehiscence, surgical 04/03/201108/22 Post-operative state 03/29/2011 08/23/2011 Dizziness and giddiness 03/26/2011 08/29/19 17 Hereditary and idiopathic peripheral neuropathy 12/19/2010 08/28/2016 Lateral epicondylitis of elbow 12/11/2010 0 08/23/2011 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, 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) 11/01/2009 Sprain of ankle, unspecified site 11/01/2009 08/28/2016 Thoracic or lumbosacral neuritis or radiculitis, unspecified 06/09/2009 08/28/2016 Wrist tendonitis 05/10/2009 08/23/2011 Pain in limb 08/29/2006 08/28/2016 Contusion of foot 08/29/2006 08/28/2016 PLANTAR Fasciitis 07/31/2005 08/28/2016 Residual foreign body in soft tissue 01/11/2005 08/28/2016 documented as of this encounter (statuses as of 07/30/2022) [facility] History of Past illness Narrative* Problem Noted Date Resolved Date Fascial defect 05/16/2021 05/19/2021 Last Assessment & Plan: -Scheduled for surgery Hypoglycemia due to type 2 diabetes mellitus 08/23/2020 Morbid obesity due to excess calories 04/12/2016 10/12/2016 Weakness 02/24/2016 08/28/2016 Myofascial pain 01/04/2016 08/28/2016 Acute nonsuppurative otitis media of right ear 0 09/05/2015 08/28/2016 Family history of ischemic heart disease 016 08/28/2016 Mass of forearm 2015 2015 Cicatrix of skin 2015 2015 Ganglion of joint 08/24/2014 08/24/2014 Painful orthopaedic hardware 12/15/2013 Flexor tendon rupture of hand 09/15/2013 Lateral epicondylitis of right elbow 04/07/2013 08/28/2016 Trigger thumb of left hand 11/04/201208/28 Displaced fracture of fifth metatarsal bone of l eft foot 09/08/2012 08/28/2016 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2016 Muscle mass 11/13/2011 08/28/2016 Type II 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, not stated as uncontrolled(250.60) 05/03/2011 04/25/2015 Lateral epicondylitis of left elbow 05/01/2011 08/23/2011 Wound dehiscence, surgical 04/03/201108/22 Post-operative state 03/29/2011 08/23/2011 Dizziness and giddiness 03/26/2011 08/29/19 17 Hereditary and idiopathic peripheral neuropathy 12/19/2010 08/28/2016 Lateral epicondylitis of elbow 12/11/2010 0 08/23/2011 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, 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) 11/01/2009 Sprain of ankle, unspecified site 11/01/2009 08/28/2016 Thoracic or lumbosacral neuritis or radiculitis, unspecified 06/09/2009 08/28/2016 Wrist tendonitis 05/10/2009 08/23/2011 Pain in limb 08/29/2006 08/28/2016 Contusion of foot 08/29/2006 08/28/2016 PLANTAR Fasciitis 07/31/2005 08/28/2016 Residual foreign body in soft tissue 01/11/2005 08/28/2016 documented as of this encounter (statuses as of 07/31/2022) [facility] History of Past illness Narrative* Problem Noted Date Resolved Date Fascial defect 05/16/2021 05/19/2021 Last Assessment & Plan: -Scheduled for surgery Hypoglycemia due to type 2 diabetes mellitus 08/23/2020 Morbid obesity due to excess calories 04/12/2016 10/12/2016 Weakness 02/24/2016 08/28/2016 Myofascial pain 01/04/2016 08/28/2016 Acute nonsuppurative otitis media of right ear 0 09/05/2015 08/28/2016 Family history of ischemic heart disease 016 08/28/2016 Mass of forearm 2015 2015 Cicatrix of skin 2015 2015 Ganglion of joint 08/24/2014 08/24/2014 Painful orthopaedic hardware 12/15/2013 Flexor tendon rupture of hand 09/15/2013 Lateral epicondylitis of right elbow 04/07/2013 08/28/2016 Trigger thumb of left hand 11/04/201208/28 Displaced fracture of fifth metatarsal bone of l eft foot 09/08/2012 08/28/2016 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2016 Muscle mass 11/13/2011 08/28/2016 Type II 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, not stated as uncontrolled(250.60) 05/03/2011 04/25/2015 Lateral epicondylitis of left elbow 05/01/2011 08/23/2011 Wound dehiscence, surgical 04/03/201108/22 Post-operative state 03/29/2011 08/23/2011 Dizziness and giddiness 03/26/2011 08/29/19 17 Hereditary and idiopathic peripheral neuropathy 12/19/2010 08/28/2016 Lateral epicondylitis of elbow 12/11/2010 0 08/23/2011 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, 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) 11/01/2009 Sprain of ankle, unspecified site 11/01/2009 08/28/2016 Thoracic or lumbosacral neuritis or radiculitis, unspecified 06/09/2009 08/28/2016 Wrist tendonitis 05/10/2009 08/23/2011 Pain in limb 08/29/2006 08/28/2016 Contusion of foot 08/29/2006 08/28/2016 PLANTAR Fasciitis 07/31/2005 08/28/2016 Residual foreign body in soft tissue 01/11/2005 08/28/2016 documented as of this encounter (statuses as of 08/02/2022) [facility] History of Past illness Narrative* Problem Noted Date Resolved Date Fascial defect 05/16/2021 05/19/2021 Last Assessment & Plan: -Scheduled for surgery Hypoglycemia due to type 2 diabetes mellitus 08/23/2020 Morbid obesity due to excess calories 04/12/2016 10/12/2016 Weakness 02/24/2016 08/28/2016 Myofascial pain 01/04/2016 08/28/2016 Acute nonsuppurative otitis media of right ear 0 09/05/2015 08/28/2016 Family history of ischemic heart disease 016 08/28/2016 Mass of forearm 2015 2015 Cicatrix of skin 2015 2015 Ganglion of joint 08/24/2014 08/24/2014 Painful orthopaedic hardware 12/15/2013 Flexor tendon rupture of hand 09/15/2013 Lateral epicondylitis of right elbow 04/07/2013 08/28/2016 Trigger thumb of left hand 11/04/201208/28 Displaced fracture of fifth metatarsal bone of l eft foot 09/08/2012 08/28/2016 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2016 Muscle mass 11/13/2011 08/28/2016 Type II 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, not stated as uncontrolled(250.60) 05/03/2011 04/25/2015 Lateral epicondylitis of left elbow 05/01/2011 08/23/2011 Wound dehiscence, surgical 04/03/201108/22 Post-operative state 03/29/2011 08/23/2011 Dizziness and giddiness 03/26/2011 08/29/19 17 Hereditary and idiopathic peripheral neuropathy 12/19/2010 08/28/2016 Lateral epicondylitis of elbow 12/11/2010 0 08/23/2011 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, 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) 11/01/2009 Sprain of ankle, unspecified site 11/01/2009 08/28/2016 Thoracic or lumbosacral neuritis or radiculitis, unspecified 06/09/2009 08/28/2016 Wrist tendonitis 05/10/2009 08/23/2011 Pain in limb 08/29/2006 08/28/2016 Contusion of foot 08/29/2006 08/28/2016 PLANTAR Fasciitis 07/31/2005 08/28/2016 Residual foreign body in soft tissue 01/11/2005 08/28/2016 documented as of this encounter (statuses as of 08/09/2022) [facility] History of Past illness Narrative* Problem Noted Date Diagnosed Date Resolved Date Fascial defect 05/16/2021 05/19/2021 Last Assessment & Plan: -Scheduled for surgery Hypoglycemia due to type 2 diabetes mellitus 9 08/23/2020 Morbid obesity due to excess calories 04/12/2016 10/12/2016 Weakness 02/24/2016 08/28/2016 Myofascial pain 01/04/2016 08/28/2016 Acute nonsuppurative otitis media of right ear 09/05/2015 08/28/2016 Family history of ischemic heart disease 05/06/2015 08/28/2016 Mass of forearm 2015 2015 Cicatrix of skin 2015 2015 Ganglion of joint 08/24/2014 08/24/2014 Painful orthopaedic hardware 12/15/2013 08/28/2016 Flexor tendon rupture of hand 09/15/2013 08/28/2016 Lateral epicondylitis of right elbow 04/07/2013 08/28/2016 Trigger thumb of left hand 11/04/2012 0 08/28/2016 Displaced fracture of fifth metatarsal bone of left foot 09/08/2012 08/28/2016 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 Muscle mass 11/13/2011 08/28/2016 Type II 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, not stated as uncontrolled(250.60) 05/03/2011 04/25/2015 Lateral epicondylitis of left elbow 05/01/2011 08/23/2011 Wound dehiscence, surgical 04/03/2011 0 08/23/2011 Post-operative state 03/29/2011 012 Dizziness and giddiness 03/26/201108/11 Hereditary and idiopathic pe ripheral neuropathy 12/19/2010 08/28/2016 Lateral epicondylitis of elbow 12/11/2010 08/23/2011 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, 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) 11/01/2009 04/25/2015 Sprain of ankle, unspecified site 11/01/2009 08/28/2016 Thoracic or lumbosacral neur itis or radiculitis, unspecified 06/09/2009 08/28/2016 Wrist tendonitis 05/10/2009 08/23/2011 Pain in limb 08/29/2006 08/28/2016 Contusion of foot 08/29/2006 08/28/2016 PLANTAR Fasciitis 07/31/2005 08/28/2016 Residual foreign body in soft tissue 01/11/2005 08/28/2016 documented as of this encounter (statuses as of 08/28/2022) [facility]04-05-2022 History of Past illness Narrative* Problem Noted Date Diagnosed Date Resolved Date Fascial defect 05/16/2021 05/19/2021 Last Assessment & Plan: -Scheduled for surgery Hypoglycemia due to type 2 diabetes mellitus 9 08/23/2020 Morbid obesity due to excess calories 04/12/2016 10/12/2016 Weakness 02/24/2016 08/28/2016 Myofascial pain 01/04/2016 08/28/2016 Acute nonsuppurative otitis media of right ear 09/05/2015 08/28/2016 Family history of ischemic heart disease 05/06/2015 08/28/2016 Mass of forearm 2015 2015 Cicatrix of skin 2015 2015 Ganglion of joint 08/24/2014 08/24/2014 Painful orthopaedic hardware 12/15/2013 08/28/2016 Flexor tendon rupture of hand 09/15/2013 08/28/2016 Lateral epicondylitis of right elbow 04/07/2013 08/28/2016 Trigger thumb of left hand 11/04/2012 0 08/28/2016 Displaced fracture of fifth metatarsal bone of left foot 09/08/2012 08/28/2016 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 Muscle mass 11/13/2011 08/28/2016 Type II 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, not stated as uncontrolled(250.60) 05/03/2011 04/25/2015 Lateral epicondylitis of left elbow 05/01/2011 08/23/2011 Wound dehiscence, surgical 04/03/2011 0 08/23/2011 Post-operative state 03/29/2011 012 Dizziness and giddiness 03/26/201108/11 Hereditary and idiopathic pe ripheral neuropathy 12/19/2010 08/28/2016 Lateral epicondylitis of elbow 12/11/2010 08/23/2011 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, 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) 11/01/2009 04/25/2015 Sprain of ankle, unspecified site 11/01/2009 08/28/2016 Thoracic or lumbosacral neur itis or radiculitis, unspecified 06/09/2009 08/28/2016 Wrist tendonitis 05/10/2009 08/23/2011 Pain in limb 08/29/2006 08/28/2016 Contusion of foot 08/29/2006 08/28/2016 PLANTAR Fasciitis 07/31/2005 08/28/2016 Residual foreign body in soft tissue 01/11/2005 08/28/2016 documented as of this encounter (statuses as of 08/30/2022) [facility]04-[facility]2022 History of Past illness Narrative* Problem Noted Date Diagnosed Date Resolved Date Fascial defect 05/16/2021 05/19/2021 Last Assessment & Plan: -Scheduled for surgery Hypoglycemia due to type 2 diabetes mellitus 9 08/23/2020 Morbid obesity due to excess calories 04/12/2016 10/12/2016 Weakness 02/24/2016 08/28/2016 Myofascial pain 01/04/2016 08/28/2016 Acute nonsuppurative otitis media of right ear 09/05/2015 08/28/2016 Family history of ischemic heart disease 05/06/2015 08/28/2016 Mass of forearm 2015 2015 Cicatrix of skin 2015 2015 Ganglion of joint 08/24/2014 08/24/2014 Painful orthopaedic hardware 12/15/2013 08/28/2016 Flexor tendon rupture of hand 09/15/2013 08/28/2016 Lateral epicondylitis of right elbow 04/07/2013 08/28/2016 Trigger thumb of left hand 11/04/2012 0 08/28/2016 Displaced fracture of fifth metatarsal bone of left foot 09/08/2012 08/28/2016 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 Muscle mass 11/13/2011 08/28/2016 Type II 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, not stated as uncontrolled(250.60) 05/03/2011 04/25/2015 Lateral epicondylitis of left elbow 05/01/2011 08/23/2011 Wound dehiscence, surgical 04/03/2011 0 08/23/2011 Post-operative state 03/29/2011 012 Dizziness and giddiness 03/26/201108/11 Hereditary and idiopathic pe ripheral neuropathy 12/19/2010 08/28/2016 Lateral epicondylitis of elbow 12/11/2010 08/23/2011 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, 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) 11/01/2009 04/25/2015 Sprain of ankle, unspecified site 11/01/2009 08/28/2016 Thoracic or lumbosacral neur itis or radiculitis, unspecified 06/09/2009 08/28/2016 Wrist tendonitis 05/10/2009 08/23/2011 Pain in limb 08/29/2006 08/28/2016 Contusion of foot 08/29/2006 08/28/2016 PLANTAR Fasciitis 07/31/2005 08/28/2016 Residual foreign body in soft tissue 01/11/2005 08/28/2016 documented as of this encounter (statuses as of 08/31/2022) [facility]04-[facility]2022 History of Past illness Narrative* Problem Noted Date Diagnosed Date Resolved Date Fascial defect 05/16/2021 05/19/2021 Last Assessment & Plan: -Scheduled for surgery Hypoglycemia due to type 2 diabetes mellitus 9 08/23/2020 Morbid obesity due to excess calories 04/12/2016 10/12/2016 Weakness 02/24/2016 08/28/2016 Myofascial pain 01/04/2016 08/28/2016 Acute nonsuppurative otitis media of right ear 09/05/2015 08/28/2016 Family history of ischemic heart disease 05/06/2015 08/28/2016 Mass of forearm 2015 2015 Cicatrix of skin 2015 2015 Ganglion of joint 08/24/2014 08/24/2014 Painful orthopaedic hardware 12/15/2013 08/28/2016 Flexor tendon rupture of hand 09/15/2013 08/28/2016 Lateral epicondylitis of right elbow 04/07/2013 08/28/2016 Trigger thumb of left hand 11/04/2012 0 08/28/2016 Displaced fracture of fifth metatarsal bone of left foot 09/08/2012 08/28/2016 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 Muscle mass 11/13/2011 08/28/2016 Type II 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, not stated as uncontrolled(250.60) 05/03/2011 04/25/2015 Lateral epicondylitis of left elbow 05/01/2011 08/23/2011 Wound dehiscence, surgical 04/03/2011 0 08/23/2011 Post-operative state 03/29/2011 012 Dizziness and giddiness 03/26/201108/11 Hereditary and idiopathic pe ripheral neuropathy 12/19/2010 08/28/2016 Lateral epicondylitis of elbow 12/11/2010 08/23/2011 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, 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) 11/01/2009 04/25/2015 Sprain of ankle, unspecified site 11/01/2009 08/28/2016 Thoracic or lumbosacral neur itis or radiculitis, unspecified 06/09/2009 08/28/2016 Wrist tendonitis 05/10/2009 08/23/2011 Pain in limb 08/29/2006 08/28/2016 Contusion of foot 08/29/2006 08/28/2016 PLANTAR Fasciitis 07/31/2005 08/28/2016 Residual foreign body in soft tissue 01/11/2005 08/28/2016 documented as of this encounter (statuses as of 08/31/2022) [facility]04-[facility]22 History of Past illness Narrative* Problem Noted Date Diagnosed Date Resolved Date Fascial defect 05/16/2021 05/19/2021 Last Assessment & Plan: -Scheduled for surgery Hypoglycemia due to type 2 diabetes mellitus 9 08/23/2020 Morbid obesity due to excess calories 04/12/2016 10/12/2016 Weakness 02/24/2016 08/28/2016 Myofascial pain 01/04/2016 08/28/2016 Acute nonsuppurative otitis media of right ear 09/05/2015 08/28/2016 Family history of ischemic heart disease 05/06/2015 08/28/2016 Mass of forearm 2015 2015 Cicatrix of skin 2015 2015 Ganglion of joint 08/24/2014 08/24/2014 Painful orthopaedic hardware 12/15/2013 08/28/2016 Flexor tendon rupture of hand 09/15/2013 08/28/2016 Lateral epicondylitis of right elbow 04/07/2013 08/28/2016 Trigger thumb of left hand 11/04/2012 0 08/28/2016 Displaced fracture of fifth metatarsal bone of left foot 09/08/2012 08/28/2016 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 Muscle mass 11/13/2011 08/28/2016 Type II 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, not stated as uncontrolled(250.60) 05/03/2011 04/25/2015 Lateral epicondylitis of left elbow 05/01/2011 08/23/2011 Wound dehiscence, surgical 04/03/2011 0 08/23/2011 Post-operative state 03/29/2011 012 Dizziness and giddiness 03/26/201108/11 Hereditary and idiopathic pe ripheral neuropathy 12/19/2010 08/28/2016 Lateral epicondylitis of elbow 12/11/2010 08/23/2011 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, 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) 11/01/2009 04/25/2015 Sprain of ankle, unspecified site 11/01/2009 08/28/2016 Thoracic or lumbosacral neur itis or radiculitis, unspecified 06/09/2009 08/28/2016 Wrist tendonitis 05/10/2009 08/23/2011 Pain in limb 08/29/2006 08/28/2016 Contusion of foot 08/29/2006 08/28/2016 PLANTAR Fasciitis 07/31/2005 08/28/2016 Residual foreign body in soft tissue 01/11/2005 08/28/2016 documented as of this encounter (statuses as of 09/18/2022) [facility] History of Past illness Narrative* Problem Noted Date Diagnosed Date Resolved Date Fascial defect 05/16/2021 05/19/2021 Last Assessment & Plan: -Scheduled for surgery Hypoglycemia due to type 2 diabetes mellitus 9 08/23/2020 Morbid obesity due to excess calories 04/12/2016 10/12/2016 Weakness 02/24/2016 08/28/2016 Myofascial pain 01/04/2016 08/28/2016 Acute nonsuppurative otitis media of right ear 09/05/2015 08/28/2016 Family history of ischemic heart disease 05/06/2015 08/28/2016 Mass of forearm 2015 2015 Cicatrix of skin 2015 2015 Ganglion of joint 08/24/2014 08/24/2014 Painful orthopaedic hardware 12/15/2013 08/28/2016 Flexor tendon rupture of hand 09/15/2013 08/28/2016 Lateral epicondylitis of right elbow 04/07/2013 08/28/2016 Trigger thumb of left hand 11/04/2012 0 08/28/2016 Displaced fracture of fifth metatarsal bone of left foot 09/08/2012 08/28/2016 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 Muscle mass 11/13/2011 08/28/2016 Type II 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, not stated as uncontrolled(250.60) 05/03/2011 04/25/2015 Lateral epicondylitis of left elbow 05/01/2011 08/23/2011 Wound dehiscence, surgical 04/03/2011 0 08/23/2011 Post-operative state 03/29/2011 012 Dizziness and giddiness 03/26/201108/11 Hereditary and idiopathic pe ripheral neuropathy 12/19/2010 08/28/2016 Lateral epicondylitis of elbow 12/11/2010 08/23/2011 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, 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) 11/01/2009 04/25/2015 Sprain of ankle, unspecified site 11/01/2009 08/28/2016 Thoracic or lumbosacral neur itis or radiculitis, unspecified 06/09/2009 08/28/2016 Wrist tendonitis 05/10/2009 08/23/2011 Pain in limb 08/29/2006 08/28/2016 Contusion of foot 08/29/2006 08/28/2016 PLANTAR Fasciitis 07/31/2005 08/28/2016 Residual foreign body in soft tissue 01/11/2005 08/28/2016 documented as of this encounter (statuses as of 09/26/2022) [facility] History of Past illness Narrative* Problem Noted Date Diagnosed Date Resolved Date Fascial defect 05/16/2021 05/19/2021 Last Assessment & Plan: -Scheduled for surgery Hypoglycemia due to type 2 diabetes mellitus 9 08/23/2020 Morbid obesity due to excess calories 04/12/2016 10/12/2016 Weakness 02/24/2016 08/28/2016 Myofascial pain 01/04/2016 08/28/2016 Acute nonsuppurative otitis media of right ear 09/05/2015 08/28/2016 Family history of ischemic heart disease 05/06/2015 08/28/2016 Mass of forearm 2015 2015 Cicatrix of skin 2015 2015 Ganglion of joint 08/24/2014 08/24/2014 Painful orthopaedic hardware 12/15/2013 08/28/2016 Flexor tendon rupture of hand 09/15/2013 08/28/2016 Lateral epicondylitis of right elbow 04/07/2013 08/28/2016 Trigger thumb of left hand 11/04/2012 0 08/28/2016 Displaced fracture of fifth metatarsal bone of left foot 09/08/2012 08/28/2016 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 Muscle mass 11/13/2011 08/28/2016 Type II 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, not stated as uncontrolled(250.60) 05/03/2011 04/25/2015 Lateral epicondylitis of left elbow 05/01/2011 08/23/2011 Wound dehiscence, surgical 04/03/2011 0 08/23/2011 Post-operative state 03/29/2011 012 Dizziness and giddiness 03/26/201108/11 Hereditary and idiopathic pe ripheral neuropathy 12/19/2010 08/28/2016 Lateral epicondylitis of elbow 12/11/2010 08/23/2011 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, 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) 11/01/2009 04/25/2015 Sprain of ankle, unspecified site 11/01/2009 08/28/2016 Thoracic or lumbosacral neur itis or radiculitis, unspecified 06/09/2009 08/28/2016 Wrist tendonitis 05/10/2009 08/23/2011 Pain in limb 08/29/2006 08/28/2016 Contusion of foot 08/29/2006 08/28/2016 PLANTAR Fasciitis 07/31/2005 08/28/2016 Residual foreign body in soft tissue 01/11/2005 08/28/2016 documented as of this encounter (statuses as of 09/27/2022) [facility]04[facility] History of Past illness Narrative* Problem Noted Date Diagnosed Date Resolved Date Fascial defect 05/16/2021 05/19/2021 Last Assessment & Plan: -Scheduled for surgery Hypoglycemia due to type 2 diabetes mellitus 9 08/23/2020 Morbid obesity due to excess calories 04/12/2016 10/12/2016 Weakness 02/24/2016 08/28/2016 Myofascial pain 01/04/2016 08/28/2016 Acute nonsuppurative otitis media of right ear 09/05/2015 08/28/2016 Family history of ischemic heart disease 05/06/2015 08/28/2016 Mass of forearm 2015 2015 Cicatrix of skin 2015 2015 Ganglion of joint 08/24/2014 08/24/2014 Painful orthopaedic hardware 12/15/2013 08/28/2016 Flexor tendon rupture of hand 09/15/2013 08/28/2016 Lateral epicondylitis of right elbow 04/07/2013 08/28/2016 Trigger thumb of left hand 11/04/2012 0 08/28/2016 Displaced fracture of fifth metatarsal bone of left foot 09/08/2012 08/28/2016 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 Muscle mass 11/13/2011 08/28/2016 Type II 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, not stated as uncontrolled(250.60) 05/03/2011 04/25/2015 Lateral epicondylitis of left elbow 05/01/2011 08/23/2011 Wound dehiscence, surgical 04/03/2011 0 08/23/2011 Post-operative state 03/29/2011 012 Dizziness and giddiness 03/26/201108/11 Hereditary and idiopathic pe ripheral neuropathy 12/19/2010 08/28/2016 Lateral epicondylitis of elbow 12/11/2010 08/23/2011 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, 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) 11/01/2009 04/25/2015 Sprain of ankle, unspecified site 11/01/2009 08/28/2016 Thoracic or lumbosacral neur itis or radiculitis, unspecified 06/09/2009 08/28/2016 Wrist tendonitis 05/10/2009 08/23/2011 Pain in limb 08/29/2006 08/28/2016 Contusion of foot 08/29/2006 08/28/2016 PLANTAR Fasciitis 07/31/2005 08/28/2016 Residual foreign body in soft tissue 01/11/2005 08/28/2016 documented as of this encounter (statuses as of 09/27/2022) [facility] History of Past illness Narrative* Problem Noted Date Diagnosed Date Resolved Date Fascial defect 05/16/2021 05/19/2021 Last Assessment & Plan: -Scheduled for surgery Hypoglycemia due to type 2 diabetes mellitus 9 08/23/2020 Morbid obesity due to excess calories 04/12/2016 10/12/2016 Weakness 02/24/2016 08/28/2016 Myofascial pain 01/04/2016 08/28/2016 Acute nonsuppurative otitis media of right ear 09/05/2015 08/28/2016 Family history of ischemic heart disease 05/06/2015 08/28/2016 Mass of forearm 2015 2015 Cicatrix of skin 2015 2015 Ganglion of joint 08/24/2014 08/24/2014 Painful orthopaedic hardware 12/15/2013 08/28/2016 Flexor tendon rupture of hand 09/15/2013 08/28/2016 Lateral epicondylitis of right elbow 04/07/2013 08/28/2016 Trigger thumb of left hand 11/04/2012 0 08/28/2016 Displaced fracture of fifth metatarsal bone of left foot 09/08/2012 08/28/2016 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 Muscle mass 11/13/2011 08/28/2016 Type II 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, not stated as uncontrolled(250.60) 05/03/2011 04/25/2015 Lateral epicondylitis of left elbow 05/01/2011 08/23/2011 Wound dehiscence, surgical 04/03/2011 0 08/23/2011 Post-operative state 03/29/2011 012 Dizziness and giddiness 03/26/201108/11 Hereditary and idiopathic pe ripheral neuropathy 12/19/2010 08/28/2016 Lateral epicondylitis of elbow 12/11/2010 08/23/2011 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, 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) 11/01/2009 04/25/2015 Sprain of ankle, unspecified site 11/01/2009 08/28/2016 Thoracic or lumbosacral neur itis or radiculitis, unspecified 06/09/2009 08/28/2016 Wrist tendonitis 05/10/2009 08/23/2011 Pain in limb 08/29/2006 08/28/2016 Contusion of foot 08/29/2006 08/28/2016 PLANTAR Fasciitis 07/31/2005 08/28/2016 Residual foreign body in soft tissue 01/11/2005 08/28/2016 documented as of this encounter (statuses as of 10/03/2022) [facility] History of Past illness Narrative* Problem Noted Date Diagnosed Date Resolved Date Fascial defect 05/16/2021 05/19/2021 Last Assessment & Plan: -Scheduled for surgery Hypoglycemia due to type 2 diabetes mellitus 9 08/23/2020 Morbid obesity due to excess calories 04/12/2016 10/12/2016 Weakness 02/24/2016 08/28/2016 Myofascial pain 01/04/2016 08/28/2016 Acute nonsuppurative otitis media of right ear 09/05/2015 08/28/2016 Family history of ischemic heart disease 05/06/2015 08/28/2016 Mass of forearm 2015 2015 Cicatrix of skin 2015 2015 Ganglion of joint 08/24/2014 08/24/2014 Painful orthopaedic hardware 12/15/2013 08/28/2016 Flexor tendon rupture of hand 09/15/2013 08/28/2016 Lateral epicondylitis of right elbow 04/07/2013 08/28/2016 Trigger thumb of left hand 11/04/2012 0 08/28/2016 Displaced fracture of fifth metatarsal bone of left foot 09/08/2012 08/28/2016 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 Muscle mass 11/13/2011 08/28/2016 Type II 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, not stated as uncontrolled(250.60) 05/03/2011 04/25/2015 Lateral epicondylitis of left elbow 05/01/2011 08/23/2011 Wound dehiscence, surgical 04/03/2011 0 08/23/2011 Post-operative state 03/29/2011 012 Dizziness and giddiness 03/26/201108/11 Hereditary and idiopathic pe ripheral neuropathy 12/19/2010 08/28/2016 Lateral epicondylitis of elbow 12/11/2010 08/23/2011 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, 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) 11/01/2009 04/25/2015 Sprain of ankle, unspecified site 11/01/2009 08/28/2016 Thoracic or lumbosacral neur itis or radiculitis, unspecified 06/09/2009 08/28/2016 Wrist tendonitis 05/10/2009 08/23/2011 Pain in limb 08/29/2006 08/28/2016 Contusion of foot 08/29/2006 08/28/2016 PLANTAR Fasciitis 07/31/2005 08/28/2016 Residual foreign body in soft tissue 01/11/2005 08/28/2016 documented as of this encounter (statuses as of 10/08/2022) [facility] History of Past illness Narrative* Problem Noted Date Diagnosed Date Resolved Date Fascial defect 05/16/2021 05/19/2021 Last Assessment & Plan: -Scheduled for surgery Hypoglycemia due to type 2 diabetes mellitus 9 08/23/2020 Morbid obesity due to excess calories 04/12/2016 10/12/2016 Weakness 02/24/2016 08/28/2016 Myofascial pain 01/04/2016 08/28/2016 Acute nonsuppurative otitis media of right ear 09/05/2015 08/28/2016 Family history of ischemic heart disease 05/06/2015 08/28/2016 Mass of forearm 2015 2015 Cicatrix of skin 2015 2015 Ganglion of joint 08/24/2014 08/24/2014 Painful orthopaedic hardware 12/15/2013 08/28/2016 Flexor tendon rupture of hand 09/15/2013 08/28/2016 Lateral epicondylitis of right elbow 04/07/2013 08/28/2016 Trigger thumb of left hand 11/04/2012 0 08/28/2016 Displaced fracture of fifth metatarsal bone of left foot 09/08/2012 08/28/2016 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 Muscle mass 11/13/2011 08/28/2016 Type II 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, not stated as uncontrolled(250.60) 05/03/2011 04/25/2015 Lateral epicondylitis of left elbow 05/01/2011 08/23/2011 Wound dehiscence, surgical 04/03/2011 0 08/23/2011 Post-operative state 03/29/2011 012 Dizziness and giddiness 03/26/201108/11 Hereditary and idiopathic pe ripheral neuropathy 12/19/2010 08/28/2016 Lateral epicondylitis of elbow 12/11/2010 08/23/2011 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, 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) 11/01/2009 04/25/2015 Sprain of ankle, unspecified site 11/01/2009 08/28/2016 Thoracic or lumbosacral neur itis or radiculitis, unspecified 06/09/2009 08/28/2016 Wrist tendonitis 05/10/2009 08/23/2011 Pain in limb 08/29/2006 08/28/2016 Contusion of foot 08/29/2006 08/28/2016 PLANTAR Fasciitis 07/31/2005 08/28/2016 Residual foreign body in soft tissue 01/11/2005 08/28/2016 documented as of this encounter (statuses as of 10/12/2022) [facility] History of Past illness Narrative* Problem Noted Date Diagnosed Date Resolved Date Fascial defect 05/16/2021 05/19/2021 Last Assessment & Plan: -Scheduled for surgery Hypoglycemia due to type 2 diabetes mellitus 9 08/23/2020 Morbid obesity due to excess calories 04/12/2016 10/12/2016 Weakness 02/24/2016 08/28/2016 Myofascial pain 01/04/2016 08/28/2016 Acute nonsuppurative otitis media of right ear 09/05/2015 08/28/2016 Family history of ischemic heart disease 05/06/2015 08/28/2016 Mass of forearm 2015 2015 Cicatrix of skin 2015 2015 Ganglion of joint 08/24/2014 08/24/2014 Painful orthopaedic hardware 12/15/2013 08/28/2016 Flexor tendon rupture of hand 09/15/2013 08/28/2016 Lateral epicondylitis of right elbow 04/07/2013 08/28/2016 Trigger thumb of left hand 11/04/2012 0 08/28/2016 Displaced fracture of fifth metatarsal bone of left foot 09/08/2012 08/28/2016 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 Muscle mass 11/13/2011 08/28/2016 Type II 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, not stated as uncontrolled(250.60) 05/03/2011 04/25/2015 Lateral epicondylitis of left elbow 05/01/2011 08/23/2011 Wound dehiscence, surgical 04/03/2011 0 08/23/2011 Post-operative state 03/29/2011 012 Dizziness and giddiness 03/26/201108/11 Hereditary and idiopathic pe ripheral neuropathy 12/19/2010 08/28/2016 Lateral epicondylitis of elbow 12/11/2010 08/23/2011 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, 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) 11/01/2009 04/25/2015 Sprain of ankle, unspecified site 11/01/2009 08/28/2016 Thoracic or lumbosacral neur itis or radiculitis, unspecified 06/09/2009 08/28/2016 Wrist tendonitis 05/10/2009 08/23/2011 Pain in limb 08/29/2006 08/28/2016 Contusion of foot 08/29/2006 08/28/2016 PLANTAR Fasciitis 07/31/2005 08/28/2016 Residual foreign body in soft tissue 01/11/2005 08/28/2016 documented as of this encounter (statuses as of 10/18/2022) [facility] History of Past illness Narrative* Problem Noted Date Diagnosed Date Resolved Date Fascial defect 05/16/2021 05/19/2021 Last Assessment & Plan: -Scheduled for surgery Hypoglycemia due to type 2 diabetes mellitus 9 08/23/2020 Morbid obesity due to excess calories 04/12/2016 10/12/2016 Weakness 02/24/2016 08/28/2016 Myofascial pain 01/04/2016 08/28/2016 Acute nonsuppurative otitis media of right ear 09/05/2015 08/28/2016 Family history of ischemic heart disease 05/06/2015 08/28/2016 Mass of forearm 2015 2015 Cicatrix of skin 2015 2015 Ganglion of joint 08/24/2014 08/24/2014 Painful orthopaedic hardware 12/15/2013 08/28/2016 Flexor tendon rupture of hand 09/15/2013 08/28/2016 Lateral epicondylitis of right elbow 04/07/2013 08/28/2016 Trigger thumb of left hand 11/04/2012 0 08/28/2016 Displaced fracture of fifth metatarsal bone of left foot 09/08/2012 08/28/2016 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 Muscle mass 11/13/2011 08/28/2016 Type II 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, not stated as uncontrolled(250.60) 05/03/2011 04/25/2015 Lateral epicondylitis of left elbow 05/01/2011 08/23/2011 Wound dehiscence, surgical 04/03/2011 0 08/23/2011 Post-operative state 03/29/2011 012 Dizziness and giddiness 03/26/201108/11 Hereditary and idiopathic pe ripheral neuropathy 12/19/2010 08/28/2016 Lateral epicondylitis of elbow 12/11/2010 08/23/2011 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, 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) 11/01/2009 04/25/2015 Sprain of ankle, unspecified site 11/01/2009 08/28/2016 Thoracic or lumbosacral neur itis or radiculitis, unspecified 06/09/2009 08/28/2016 Wrist tendonitis 05/10/2009 08/23/2011 Pain in limb 08/29/2006 08/28/2016 Contusion of foot 08/29/2006 08/28/2016 PLANTAR Fasciitis 07/31/2005 08/28/2016 Residual foreign body in soft tissue 01/11/2005 08/28/2016 documented as of this encounter (statuses as of 10/26/2022) [facility]04-05-2022 History of Past illness Narrative* Problem Noted Date Diagnosed Date Resolved Date Fascial defect 05/16/2021 05/19/2021 Last Assessment & Plan: -Scheduled for surgery Hypoglycemia due to type 2 diabetes mellitus 9 08/23/2020 Morbid obesity due to excess calories 04/12/2016 10/12/2016 Weakness 02/24/2016 08/28/2016 Myofascial pain 01/04/2016 08/28/2016 Acute nonsuppurative otitis media of right ear 09/05/2015 08/28/2016 Family history of ischemic heart disease 05/06/2015 08/28/2016 Mass of forearm 2015 2015 Cicatrix of skin 2015 2015 Ganglion of joint 08/24/2014 08/24/2014 Painful orthopaedic hardware 12/15/2013 08/28/2016 Flexor tendon rupture of hand 09/15/2013 08/28/2016 Lateral epicondylitis of right elbow 04/07/2013 08/28/2016 Trigger thumb of left hand 11/04/2012 0 08/28/2016 Displaced fracture of fifth metatarsal bone of left foot 09/08/2012 08/28/2016 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 Muscle mass 11/13/2011 08/28/2016 Type II 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, not stated as uncontrolled(250.60) 05/03/2011 04/25/2015 Lateral epicondylitis of left elbow 05/01/2011 08/23/2011 Wound dehiscence, surgical 04/03/2011 0 08/23/2011 Post-operative state 03/29/2011 012 Dizziness and giddiness 03/26/201108/11 Hereditary and idiopathic pe ripheral neuropathy 12/19/2010 08/28/2016 Lateral epicondylitis of elbow 12/11/2010 08/23/2011 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, 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) 11/01/2009 04/25/2015 Sprain of ankle, unspecified site 11/01/2009 08/28/2016 Thoracic or lumbosacral neur itis or radiculitis, unspecified 06/09/2009 08/28/2016 Wrist tendonitis 05/10/2009 08/23/2011 Pain in limb 08/29/2006 08/28/2016 Contusion of foot 08/29/2006 08/28/2016 PLANTAR Fasciitis 07/31/2005 08/28/2016 Residual foreign body in soft tissue 01/11/2005 08/28/2016 documented as of this encounter (statuses as of 10/29/2022) [facility]04-[facility]22 History of Past illness Narrative* Problem Noted Date Diagnosed Date Resolved Date Fascial defect 05/16/2021 05/19/2021 Last Assessment & Plan: -Scheduled for surgery Hypoglycemia due to type 2 diabetes mellitus 9 08/23/2020 Morbid obesity due to excess calories 04/12/2016 10/12/2016 Weakness 02/24/2016 08/28/2016 Myofascial pain 01/04/2016 08/28/2016 Acute nonsuppurative otitis media of right ear 09/05/2015 08/28/2016 Family history of ischemic heart disease 05/06/2015 08/28/2016 Mass of forearm 2015 2015 Cicatrix of skin 2015 2015 Ganglion of joint 08/24/2014 08/24/2014 Painful orthopaedic hardware 12/15/2013 08/28/2016 Flexor tendon rupture of hand 09/15/2013 08/28/2016 Lateral epicondylitis of right elbow 04/07/2013 08/28/2016 Trigger thumb of left hand 11/04/2012 0 08/28/2016 Displaced fracture of fifth metatarsal bone of left foot 09/08/2012 08/28/2016 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 Muscle mass 11/13/2011 08/28/2016 Type II 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, not stated as uncontrolled(250.60) 05/03/2011 04/25/2015 Lateral epicondylitis of left elbow 05/01/2011 08/23/2011 Wound dehiscence, surgical 04/03/2011 0 08/23/2011 Post-operative state 03/29/2011 012 Dizziness and giddiness 03/26/201108/11 Hereditary and idiopathic pe ripheral neuropathy 12/19/2010 08/28/2016 Lateral epicondylitis of elbow 12/11/2010 08/23/2011 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, 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) 11/01/2009 04/25/2015 Sprain of ankle, unspecified site 11/01/2009 08/28/2016 Thoracic or lumbosacral neur itis or radiculitis, unspecified 06/09/2009 08/28/2016 Wrist tendonitis 05/10/2009 08/23/2011 Pain in limb 08/29/2006 08/28/2016 Contusion of foot 08/29/2006 08/28/2016 PLANTAR Fasciitis 07/31/2005 08/28/2016 Residual foreign body in soft tissue 01/11/2005 08/28/2016 documented as of this encounter (statuses as of 10/29/2022) [facility]04-[facility]2022 History of Past illness Narrative* Problem Noted Date Diagnosed Date Resolved Date Fascial defect 05/16/2021 05/19/2021 Last Assessment & Plan: -Scheduled for surgery Hypoglycemia due to type 2 diabetes mellitus 9 08/23/2020 Morbid obesity due to excess calories 04/12/2016 10/12/2016 Weakness 02/24/2016 08/28/2016 Myofascial pain 01/04/2016 08/28/2016 Acute nonsuppurative otitis media of right ear 09/05/2015 08/28/2016 Family history of ischemic heart disease 05/06/2015 08/28/2016 Mass of forearm 2015 2015 Cicatrix of skin 2015 2015 Ganglion of joint 08/24/2014 08/24/2014 Painful orthopaedic hardware 12/15/2013 08/28/2016 Flexor tendon rupture of hand 09/15/2013 08/28/2016 Lateral epicondylitis of right elbow 04/07/2013 08/28/2016 Trigger thumb of left hand 11/04/2012 0 08/28/2016 Displaced fracture of fifth metatarsal bone of left foot 09/08/2012 08/28/2016 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 Muscle mass 11/13/2011 08/28/2016 Type II 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, not stated as uncontrolled(250.60) 05/03/2011 04/25/2015 Lateral epicondylitis of left elbow 05/01/2011 08/23/2011 Wound dehiscence, surgical 04/03/2011 0 08/23/2011 Post-operative state 03/29/2011 012 Dizziness and giddiness 03/26/201108/11 Hereditary and idiopathic pe ripheral neuropathy 12/19/2010 08/28/2016 Lateral epicondylitis of elbow 12/11/2010 08/23/2011 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, 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) 11/01/2009 04/25/2015 Sprain of ankle, unspecified site 11/01/2009 08/28/2016 Thoracic or lumbosacral neur itis or radiculitis, unspecified 06/09/2009 08/28/2016 Wrist tendonitis 05/10/2009 08/23/2011 Pain in limb 08/29/2006 08/28/2016 Contusion of foot 08/29/2006 08/28/2016 PLANTAR Fasciitis 07/31/2005 08/28/2016 Residual foreign body in soft tissue 01/11/2005 08/28/2016 documented as of this encounter (statuses as of 11/06/2022) [facility]04-[facility]22 History of Past illness Narrative* Problem Noted Date Diagnosed Date Resolved Date Fascial defect 05/16/2021 05/19/2021 Last Assessment & Plan: -Scheduled for surgery Hypoglycemia due to type 2 diabetes mellitus 9 08/23/2020 Morbid obesity due to excess calories 04/12/2016 10/12/2016 Weakness 02/24/2016 08/28/2016 Myofascial pain 01/04/2016 08/28/2016 Acute nonsuppurative otitis media of right ear 09/05/2015 08/28/2016 Family history of ischemic heart disease 05/06/2015 08/28/2016 Mass of forearm 2015 2015 Cicatrix of skin 2015 2015 Ganglion of joint 08/24/2014 08/24/2014 Painful orthopaedic hardware 12/15/2013 08/28/2016 Flexor tendon rupture of hand 09/15/2013 08/28/2016 Lateral epicondylitis of right elbow 04/07/2013 08/28/2016 Trigger thumb of left hand 11/04/2012 0 08/28/2016 Displaced fracture of fifth metatarsal bone of left foot 09/08/2012 08/28/2016 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 Muscle mass 11/13/2011 08/28/2016 Type II 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, not stated as uncontrolled(250.60) 05/03/2011 04/25/2015 Lateral epicondylitis of left elbow 05/01/2011 08/23/2011 Wound dehiscence, surgical 04/03/2011 0 08/23/2011 Post-operative state 03/29/2011 012 Dizziness and giddiness 03/26/201108/11 Hereditary and idiopathic pe ripheral neuropathy 12/19/2010 08/28/2016 Lateral epicondylitis of elbow 12/11/2010 08/23/2011 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, 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) 11/01/2009 04/25/2015 Sprain of ankle, unspecified site 11/01/2009 08/28/2016 Thoracic or lumbosacral neur itis or radiculitis, unspecified 06/09/2009 08/28/2016 Wrist tendonitis 05/10/2009 08/23/2011 Pain in limb 08/29/2006 08/28/2016 Contusion of foot 08/29/2006 08/28/2016 PLANTAR Fasciitis 07/31/2005 08/28/2016 Residual foreign body in soft tissue 01/11/2005 08/28/2016 documented as of this encounter (statuses as of 11/09/2022) [facility] History of Past illness Narrative* Problem Noted Date Diagnosed Date Resolved Date Fascial defect 05/16/2021 05/19/2021 Last Assessment & Plan: -Scheduled for surgery Hypoglycemia due to type 2 diabetes mellitus 9 08/23/2020 Morbid obesity due to excess calories 04/12/2016 10/12/2016 Weakness 02/24/2016 08/28/2016 Myofascial pain 01/04/2016 08/28/2016 Acute nonsuppurative otitis media of right ear 09/05/2015 08/28/2016 Family history of ischemic heart disease 05/06/2015 08/28/2016 Mass of forearm 2015 2015 Cicatrix of skin 2015 2015 Ganglion of joint 08/24/2014 08/24/2014 Painful orthopaedic hardware 12/15/2013 08/28/2016 Flexor tendon rupture of hand 09/15/2013 08/28/2016 Lateral epicondylitis of right elbow 04/07/2013 08/28/2016 Trigger thumb of left hand 11/04/2012 0 08/28/2016 Displaced fracture of fifth metatarsal bone of left foot 09/08/2012 08/28/2016 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 Muscle mass 11/13/2011 08/28/2016 Type II 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, not stated as uncontrolled(250.60) 05/03/2011 04/25/2015 Lateral epicondylitis of left elbow 05/01/2011 08/23/2011 Wound dehiscence, surgical 04/03/2011 0 08/23/2011 Post-operative state 03/29/2011 012 Dizziness and giddiness 03/26/201108/11 Hereditary and idiopathic pe ripheral neuropathy 12/19/2010 08/28/2016 Lateral epicondylitis of elbow 12/11/2010 08/23/2011 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, 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) 11/01/2009 04/25/2015 Sprain of ankle, unspecified site 11/01/2009 08/28/2016 Thoracic or lumbosacral neur itis or radiculitis, unspecified 06/09/2009 08/28/2016 Wrist tendonitis 05/10/2009 08/23/2011 Pain in limb 08/29/2006 08/28/2016 Contusion of foot 08/29/2006 08/28/2016 PLANTAR Fasciitis 07/31/2005 08/28/2016 Residual foreign body in soft tissue 01/11/2005 08/28/2016 documented as of this encounter (statuses as of 11/09/2022) [facility]04[facility] History of Past illness Narrative* Problem Noted Date Diagnosed Date Resolved Date Fascial defect 05/16/2021 05/19/2021 Last Assessment & Plan: -Scheduled for surgery Hypoglycemia due to type 2 diabetes mellitus 9 08/23/2020 Morbid obesity due to excess calories 04/12/2016 10/12/2016 Weakness 02/24/2016 08/28/2016 Myofascial pain 01/04/2016 08/28/2016 Acute nonsuppurative otitis media of right ear 09/05/2015 08/28/2016 Family history of ischemic heart disease 05/06/2015 08/28/2016 Mass of forearm 2015 2015 Cicatrix of skin 2015 2015 Ganglion of joint 08/24/2014 08/24/2014 Painful orthopaedic hardware 12/15/2013 08/28/2016 Flexor tendon rupture of hand 09/15/2013 08/28/2016 Lateral epicondylitis of right elbow 04/07/2013 08/28/2016 Trigger thumb of left hand 11/04/2012 0 08/28/2016 Displaced fracture of fifth metatarsal bone of left foot 09/08/2012 08/28/2016 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 Muscle mass 11/13/2011 08/28/2016 Type II 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, not stated as uncontrolled(250.60) 05/03/2011 04/25/2015 Lateral epicondylitis of left elbow 05/01/2011 08/23/2011 Wound dehiscence, surgical 04/03/2011 0 08/23/2011 Post-operative state 03/29/2011 012 Dizziness and giddiness 03/26/201108/11 Hereditary and idiopathic pe ripheral neuropathy 12/19/2010 08/28/2016 Lateral epicondylitis of elbow 12/11/2010 08/23/2011 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, 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) 11/01/2009 04/25/2015 Sprain of ankle, unspecified site 11/01/2009 08/28/2016 Thoracic or lumbosacral neur itis or radiculitis, unspecified 06/09/2009 08/28/2016 Wrist tendonitis 05/10/2009 08/23/2011 Pain in limb 08/29/2006 08/28/2016 Contusion of foot 08/29/2006 08/28/2016 PLANTAR Fasciitis 07/31/2005 08/28/2016 Residual foreign body in soft tissue 01/11/2005 08/28/2016 documented as of this encounter (statuses as of 11/15/2022) [facility]04[facility] History of Past illness Narrative* Problem Noted Date Diagnosed Date Resolved Date Fascial defect 05/16/2021 05/19/2021 Last Assessment & Plan: -Scheduled for surgery Hypoglycemia due to type 2 diabetes mellitus 9 08/23/2020 Morbid obesity due to excess calories 04/12/2016 10/12/2016 Weakness 02/24/2016 08/28/2016 Myofascial pain 01/04/2016 08/28/2016 Acute nonsuppurative otitis media of right ear 09/05/2015 08/28/2016 Family history of ischemic heart disease 05/06/2015 08/28/2016 Mass of forearm 2015 2015 Cicatrix of skin 2015 2015 Ganglion of joint 08/24/2014 08/24/2014 Painful orthopaedic hardware 12/15/2013 08/28/2016 Flexor tendon rupture of hand 09/15/2013 08/28/2016 Lateral epicondylitis of right elbow 04/07/2013 08/28/2016 Trigger thumb of left hand 11/04/2012 0 08/28/2016 Displaced fracture of fifth metatarsal bone of left foot 09/08/2012 08/28/2016 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 Muscle mass 11/13/2011 08/28/2016 Type II 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, not stated as uncontrolled(250.60) 05/03/2011 04/25/2015 Lateral epicondylitis of left elbow 05/01/2011 08/23/2011 Wound dehiscence, surgical 04/03/2011 0 08/23/2011 Post-operative state 03/29/2011 012 Dizziness and giddiness 03/26/201108/11 Hereditary and idiopathic pe ripheral neuropathy 12/19/2010 08/28/2016 Lateral epicondylitis of elbow 12/11/2010 08/23/2011 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, 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) 11/01/2009 04/25/2015 Sprain of ankle, unspecified site 11/01/2009 08/28/2016 Thoracic or lumbosacral neur itis or radiculitis, unspecified 06/09/2009 08/28/2016 Wrist tendonitis 05/10/2009 08/23/2011 Pain in limb 08/29/2006 08/28/2016 Contusion of foot 08/29/2006 08/28/2016 PLANTAR Fasciitis 07/31/2005 08/28/2016 Residual foreign body in soft tissue 01/11/2005 08/28/2016 documented as of this encounter (statuses as of 11/15/2022) [facility] History of Past illness Narrative* Problem Noted Date Diagnosed Date Resolved Date Fascial defect 05/16/2021 05/19/2021 Last Assessment & Plan: -Scheduled for surgery Hypoglycemia due to type 2 diabetes mellitus 9 08/23/2020 Morbid obesity due to excess calories 04/12/2016 10/12/2016 Weakness 02/24/2016 08/28/2016 Myofascial pain 01/04/2016 08/28/2016 Acute nonsuppurative otitis media of right ear 09/05/2015 08/28/2016 Family history of ischemic heart disease 05/06/2015 08/28/2016 Mass of forearm 2015 2015 Cicatrix of skin 2015 2015 Ganglion of joint 08/24/2014 08/24/2014 Painful orthopaedic hardware 12/15/2013 08/28/2016 Flexor tendon rupture of hand 09/15/2013 08/28/2016 Lateral epicondylitis of right elbow 04/07/2013 08/28/2016 Trigger thumb of left hand 11/04/2012 0 08/28/2016 Displaced fracture of fifth metatarsal bone of left foot 09/08/2012 08/28/2016 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 Muscle mass 11/13/2011 08/28/2016 Type II 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, not stated as uncontrolled(250.60) 05/03/2011 04/25/2015 Lateral epicondylitis of left elbow 05/01/2011 08/23/2011 Wound dehiscence, surgical 04/03/2011 0 08/23/2011 Post-operative state 03/29/2011 012 Dizziness and giddiness 03/26/201108/11 Hereditary and idiopathic pe ripheral neuropathy 12/19/2010 08/28/2016 Lateral epicondylitis of elbow 12/11/2010 08/23/2011 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, 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) 11/01/2009 04/25/2015 Sprain of ankle, unspecified site 11/01/2009 08/28/2016 Thoracic or lumbosacral neur itis or radiculitis, unspecified 06/09/2009 08/28/2016 Wrist tendonitis 05/10/2009 08/23/2011 Pain in limb 08/29/2006 08/28/2016 Contusion of foot 08/29/2006 08/28/2016 PLANTAR Fasciitis 07/31/2005 08/28/2016 Residual foreign body in soft tissue 01/11/2005 08/28/2016 documented as of this encounter (statuses as of 11/17/2022) [facility] History of Past illness Narrative* Problem Noted Date Diagnosed Date Resolved Date Fascial defect 05/16/2021 05/19/2021 Last Assessment & Plan: -Scheduled for surgery Hypoglycemia due to type 2 diabetes mellitus 9 08/23/2020 Morbid obesity due to excess calories 04/12/2016 10/12/2016 Weakness 02/24/2016 08/28/2016 Myofascial pain 01/04/2016 08/28/2016 Acute nonsuppurative otitis media of right ear 09/05/2015 08/28/2016 Family history of ischemic heart disease 05/06/2015 08/28/2016 Mass of forearm 2015 2015 Cicatrix of skin 2015 2015 Ganglion of joint 08/24/2014 08/24/2014 Painful orthopaedic hardware 12/15/2013 08/28/2016 Flexor tendon rupture of hand 09/15/2013 08/28/2016 Lateral epicondylitis of right elbow 04/07/2013 08/28/2016 Trigger thumb of left hand 11/04/2012 0 08/28/2016 Displaced fracture of fifth metatarsal bone of left foot 09/08/2012 08/28/2016 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 Muscle mass 11/13/2011 08/28/2016 Type II 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, not stated as uncontrolled(250.60) 05/03/2011 04/25/2015 Lateral epicondylitis of left elbow 05/01/2011 08/23/2011 Wound dehiscence, surgical 04/03/2011 0 08/23/2011 Post-operative state 03/29/2011 012 Dizziness and giddiness 03/26/201108/11 Hereditary and idiopathic pe ripheral neuropathy 12/19/2010 08/28/2016 Lateral epicondylitis of elbow 12/11/2010 08/23/2011 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, 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) 11/01/2009 04/25/2015 Sprain of ankle, unspecified site 11/01/2009 08/28/2016 Thoracic or lumbosacral neur itis or radiculitis, unspecified 06/09/2009 08/28/2016 Wrist tendonitis 05/10/2009 08/23/2011 Pain in limb 08/29/2006 08/28/2016 Contusion of foot 08/29/2006 08/28/2016 PLANTAR Fasciitis 07/31/2005 08/28/2016 Residual foreign body in soft tissue 01/11/2005 08/28/2016 documented as of this encounter (statuses as of 11/17/2022) [facility] History of Past illness Narrative* Problem Noted Date Diagnosed Date Resolved Date Fascial defect 05/16/2021 05/19/2021 Last Assessment & Plan: -Scheduled for surgery Hypoglycemia due to type 2 diabetes mellitus 9 08/23/2020 Morbid obesity due to excess calories 04/12/2016 10/12/2016 Weakness 02/24/2016 08/28/2016 Myofascial pain 01/04/2016 08/28/2016 Acute nonsuppurative otitis media of right ear 09/05/2015 08/28/2016 Family history of ischemic heart disease 05/06/2015 08/28/2016 Mass of forearm 2015 2015 Cicatrix of skin 2015 2015 Ganglion of joint 08/24/2014 08/24/2014 Painful orthopaedic hardware 12/15/2013 08/28/2016 Flexor tendon rupture of hand 09/15/2013 08/28/2016 Lateral epicondylitis of right elbow 04/07/2013 08/28/2016 Trigger thumb of left hand 11/04/2012 0 08/28/2016 Displaced fracture of fifth metatarsal bone of left foot 09/08/2012 08/28/2016 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 Muscle mass 11/13/2011 08/28/2016 Type II 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, not stated as uncontrolled(250.60) 05/03/2011 04/25/2015 Lateral epicondylitis of left elbow 05/01/2011 08/23/2011 Wound dehiscence, surgical 04/03/2011 0 08/23/2011 Post-operative state 03/29/2011 012 Dizziness and giddiness 03/26/201108/11 Hereditary and idiopathic pe ripheral neuropathy 12/19/2010 08/28/2016 Lateral epicondylitis of elbow 12/11/2010 08/23/2011 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, 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) 11/01/2009 04/25/2015 Sprain of ankle, unspecified site 11/01/2009 08/28/2016 Thoracic or lumbosacral neur itis or radiculitis, unspecified 06/09/2009 08/28/2016 Wrist tendonitis 05/10/2009 08/23/2011 Pain in limb 08/29/2006 08/28/2016 Contusion of foot 08/29/2006 08/28/2016 PLANTAR Fasciitis 07/31/2005 08/28/2016 Residual foreign body in soft tissue 01/11/2005 08/28/2016 documented as of this encounter (statuses as of 11/17/2022) [facility] History of Past illness Narrative* Problem Noted Date Diagnosed Date Resolved Date Fascial defect 05/16/2021 05/19/2021 Last Assessment & Plan: -Scheduled for surgery Hypoglycemia due to type 2 diabetes mellitus 9 08/23/2020 Morbid obesity due to excess calories 04/12/2016 10/12/2016 Weakness 02/24/2016 08/28/2016 Myofascial pain 01/04/2016 08/28/2016 Acute nonsuppurative otitis media of right ear 09/05/2015 08/28/2016 Family history of ischemic heart disease 05/06/2015 08/28/2016 Mass of forearm 2015 2015 Cicatrix of skin 2015 2015 Ganglion of joint 08/24/2014 08/24/2014 Painful orthopaedic hardware 12/15/2013 08/28/2016 Flexor tendon rupture of hand 09/15/2013 08/28/2016 Lateral epicondylitis of right elbow 04/07/2013 08/28/2016 Trigger thumb of left hand 11/04/2012 0 08/28/2016 Displaced fracture of fifth metatarsal bone of left foot 09/08/2012 08/28/2016 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 Muscle mass 11/13/2011 08/28/2016 Type II 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, not stated as uncontrolled(250.60) 05/03/2011 04/25/2015 Lateral epicondylitis of left elbow 05/01/2011 08/23/2011 Wound dehiscence, surgical 04/03/2011 0 08/23/2011 Post-operative state 03/29/2011 012 Dizziness and giddiness 03/26/201108/11 Hereditary and idiopathic pe ripheral neuropathy 12/19/2010 08/28/2016 Lateral epicondylitis of elbow 12/11/2010 08/23/2011 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, 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) 11/01/2009 04/25/2015 Sprain of ankle, unspecified site 11/01/2009 08/28/2016 Thoracic or lumbosacral neur itis or radiculitis, unspecified 06/09/2009 08/28/2016 Wrist tendonitis 05/10/2009 08/23/2011 Pain in limb 08/29/2006 08/28/2016 Contusion of foot 08/29/2006 08/28/2016 PLANTAR Fasciitis 07/31/2005 08/28/2016 Residual foreign body in soft tissue 01/11/2005 08/28/2016 documented as of this encounter (statuses as of 11/23/2022) [facility] History of Past illness Narrative* Problem Noted Date Diagnosed Date Resolved Date Fascial defect 05/16/2021 05/19/2021 Last Assessment & Plan: -Scheduled for surgery Hypoglycemia due to type 2 diabetes mellitus 9 08/23/2020 Morbid obesity due to excess calories 04/12/2016 10/12/2016 Weakness 02/24/2016 08/28/2016 Myofascial pain 01/04/2016 08/28/2016 Acute nonsuppurative otitis media of right ear 09/05/2015 08/28/2016 Family history of ischemic heart disease 05/06/2015 08/28/2016 Mass of forearm 2015 2015 Cicatrix of skin 2015 2015 Ganglion of joint 08/24/2014 08/24/2014 Painful orthopaedic hardware 12/15/2013 08/28/2016 Flexor tendon rupture of hand 09/15/2013 08/28/2016 Lateral epicondylitis of right elbow 04/07/2013 08/28/2016 Trigger thumb of left hand 11/04/2012 0 08/28/2016 Displaced fracture of fifth metatarsal bone of left foot 09/08/2012 08/28/2016 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 Muscle mass 11/13/2011 08/28/2016 Type II 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, not stated as uncontrolled(250.60) 05/03/2011 04/25/2015 Lateral epicondylitis of left elbow 05/01/2011 08/23/2011 Wound dehiscence, surgical 04/03/2011 0 08/23/2011 Post-operative state 03/29/2011 012 Dizziness and giddiness 03/26/201108/11 Hereditary and idiopathic pe ripheral neuropathy 12/19/2010 08/28/2016 Lateral epicondylitis of elbow 12/11/2010 08/23/2011 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, 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) 11/01/2009 04/25/2015 Sprain of ankle, unspecified site 11/01/2009 08/28/2016 Thoracic or lumbosacral neur itis or radiculitis, unspecified 06/09/2009 08/28/2016 Wrist tendonitis 05/10/2009 08/23/2011 Pain in limb 08/29/2006 08/28/2016 Contusion of foot 08/29/2006 08/28/2016 PLANTAR Fasciitis 07/31/2005 08/28/2016 Residual foreign body in soft tissue 01/11/2005 08/28/2016 documented as of this encounter (statuses as of 11/23/2022) [facility]04-05-2022 History of Past illness Narrative* Problem Noted Date Diagnosed Date Resolved Date Fascial defect 05/16/2021 05/19/2021 Last Assessment & Plan: -Scheduled for surgery Hypoglycemia due to type 2 diabetes mellitus 9 08/23/2020 Morbid obesity due to excess calories 04/12/2016 10/12/2016 Weakness 02/24/2016 08/28/2016 Myofascial pain 01/04/2016 08/28/2016 Acute nonsuppurative otitis media of right ear 09/05/2015 08/28/2016 Family history of ischemic heart disease 05/06/2015 08/28/2016 Mass of forearm 2015 2015 Cicatrix of skin 2015 2015 Ganglion of joint 08/24/2014 08/24/2014 Painful orthopaedic hardware 12/15/2013 08/28/2016 Flexor tendon rupture of hand 09/15/2013 08/28/2016 Lateral epicondylitis of right elbow 04/07/2013 08/28/2016 Trigger thumb of left hand 11/04/2012 0 08/28/2016 Displaced fracture of fifth metatarsal bone of left foot 09/08/2012 08/28/2016 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 Muscle mass 11/13/2011 08/28/2016 Type II 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, not stated as uncontrolled(250.60) 05/03/2011 04/25/2015 Lateral epicondylitis of left elbow 05/01/2011 08/23/2011 Wound dehiscence, surgical 04/03/2011 0 08/23/2011 Post-operative state 03/29/2011 012 Dizziness and giddiness 03/26/201108/11 Hereditary and idiopathic pe ripheral neuropathy 12/19/2010 08/28/2016 Lateral epicondylitis of elbow 12/11/2010 08/23/2011 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, 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) 11/01/2009 04/25/2015 Sprain of ankle, unspecified site 11/01/2009 08/28/2016 Thoracic or lumbosacral neur itis or radiculitis, unspecified 06/09/2009 08/28/2016 Wrist tendonitis 05/10/2009 08/23/2011 Pain in limb 08/29/2006 08/28/2016 Contusion of foot 08/29/2006 08/28/2016 PLANTAR Fasciitis 07/31/2005 08/28/2016 Residual foreign body in soft tissue 01/11/2005 08/28/2016 documented as of this encounter (statuses as of 11/29/2022) [facility]04-[facility]2022 History of Past illness Narrative* Problem Noted Date Diagnosed Date Resolved Date Fascial defect 05/16/2021 05/19/2021 Last Assessment & Plan: -Scheduled for surgery Hypoglycemia due to type 2 diabetes mellitus 9 08/23/2020 Morbid obesity due to excess calories 04/12/2016 10/12/2016 Weakness 02/24/2016 08/28/2016 Myofascial pain 01/04/2016 08/28/2016 Acute nonsuppurative otitis media of right ear 09/05/2015 08/28/2016 Family history of ischemic heart disease 05/06/2015 08/28/2016 Mass of forearm 2015 2015 Cicatrix of skin 2015 2015 Ganglion of joint 08/24/2014 08/24/2014 Painful orthopaedic hardware 12/15/2013 08/28/2016 Flexor tendon rupture of hand 09/15/2013 08/28/2016 Lateral epicondylitis of right elbow 04/07/2013 08/28/2016 Trigger thumb of left hand 11/04/2012 0 08/28/2016 Displaced fracture of fifth metatarsal bone of left foot 09/08/2012 08/28/2016 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 Muscle mass 11/13/2011 08/28/2016 Type II 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, not stated as uncontrolled(250.60) 05/03/2011 04/25/2015 Lateral epicondylitis of left elbow 05/01/2011 08/23/2011 Wound dehiscence, surgical 04/03/2011 0 08/23/2011 Post-operative state 03/29/2011 012 Dizziness and giddiness 03/26/201108/11 Hereditary and idiopathic pe ripheral neuropathy 12/19/2010 08/28/2016 Lateral epicondylitis of elbow 12/11/2010 08/23/2011 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, 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) 11/01/2009 04/25/2015 Sprain of ankle, unspecified site 11/01/2009 08/28/2016 Thoracic or lumbosacral neur itis or radiculitis, unspecified 06/09/2009 08/28/2016 Wrist tendonitis 05/10/2009 08/23/2011 Pain in limb 08/29/2006 08/28/2016 Contusion of foot 08/29/2006 08/28/2016 PLANTAR Fasciitis 07/31/2005 08/28/2016 Residual foreign body in soft tissue 01/11/2005 08/28/2016 documented as of this encounter (statuses as of 12/06/2022) [facility]04[facility]2022 History of Past illness Narrative* Problem Noted Date Diagnosed Date Resolved Date Fascial defect 05/16/2021 05/19/2021 Last Assessment & Plan: -Scheduled for surgery Hypoglycemia due to type 2 diabetes mellitus 9 08/23/2020 Morbid obesity due to excess calories 04/12/2016 10/12/2016 Weakness 02/24/2016 08/28/2016 Myofascial pain 01/04/2016 08/28/2016 Acute nonsuppurative otitis media of right ear 09/05/2015 08/28/2016 Family history of ischemic heart disease 05/06/2015 08/28/2016 Mass of forearm 2015 2015 Cicatrix of skin 2015 2015 Ganglion of joint 08/24/2014 08/24/2014 Painful orthopaedic hardware 12/15/2013 08/28/2016 Flexor tendon rupture of hand 09/15/2013 08/28/2016 Lateral epicondylitis of right elbow 04/07/2013 08/28/2016 Trigger thumb of left hand 11/04/2012 0 08/28/2016 Displaced fracture of fifth metatarsal bone of left foot 09/08/2012 08/28/2016 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 Muscle mass 11/13/2011 08/28/2016 Type II 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, not stated as uncontrolled(250.60) 05/03/2011 04/25/2015 Lateral epicondylitis of left elbow 05/01/2011 08/23/2011 Wound dehiscence, surgical 04/03/2011 0 08/23/2011 Post-operative state 03/29/2011 012 Dizziness and giddiness 03/26/201108/11 Hereditary and idiopathic pe ripheral neuropathy 12/19/2010 08/28/2016 Lateral epicondylitis of elbow 12/11/2010 08/23/2011 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, 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) 11/01/2009 04/25/2015 Sprain of ankle, unspecified site 11/01/2009 08/28/2016 Thoracic or lumbosacral neur itis or radiculitis, unspecified 06/09/2009 08/28/2016 Wrist tendonitis 05/10/2009 08/23/2011 Pain in limb 08/29/2006 08/28/2016 Contusion of foot 08/29/2006 08/28/2016 PLANTAR Fasciitis 07/31/2005 08/28/2016 Residual foreign body in soft tissue 01/11/2005 08/28/2016 documented as of this encounter (statuses as of 12/06/2022) [facility]04-[facility]22 History of Past illness Narrative* Problem Noted Date Diagnosed Date Resolved Date Fascial defect 05/16/2021 05/19/2021 Last Assessment & Plan: -Scheduled for surgery Hypoglycemia due to type 2 diabetes mellitus 9 08/23/2020 Morbid obesity due to excess calories 04/12/2016 10/12/2016 Weakness 02/24/2016 08/28/2016 Myofascial pain 01/04/2016 08/28/2016 Acute nonsuppurative otitis media of right ear 09/05/2015 08/28/2016 Family history of ischemic heart disease 05/06/2015 08/28/2016 Mass of forearm 2015 2015 Cicatrix of skin 2015 2015 Ganglion of joint 08/24/2014 08/24/2014 Painful orthopaedic hardware 12/15/2013 08/28/2016 Flexor tendon rupture of hand 09/15/2013 08/28/2016 Lateral epicondylitis of right elbow 04/07/2013 08/28/2016 Trigger thumb of left hand 11/04/2012 0 08/28/2016 Displaced fracture of fifth metatarsal bone of left foot 09/08/2012 08/28/2016 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 Muscle mass 11/13/2011 08/28/2016 Type II 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, not stated as uncontrolled(250.60) 05/03/2011 04/25/2015 Lateral epicondylitis of left elbow 05/01/2011 08/23/2011 Wound dehiscence, surgical 04/03/2011 0 08/23/2011 Post-operative state 03/29/2011 012 Dizziness and giddiness 03/26/201108/11 Hereditary and idiopathic pe ripheral neuropathy 12/19/2010 08/28/2016 Lateral epicondylitis of elbow 12/11/2010 08/23/2011 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, 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) 11/01/2009 04/25/2015 Sprain of ankle, unspecified site 11/01/2009 08/28/2016 Thoracic or lumbosacral neur itis or radiculitis, unspecified 06/09/2009 08/28/2016 Wrist tendonitis 05/10/2009 08/23/2011 Pain in limb 08/29/2006 08/28/2016 Contusion of foot 08/29/2006 08/28/2016 PLANTAR Fasciitis 07/31/2005 08/28/2016 Residual foreign body in soft tissue 01/11/2005 08/28/2016 documented as of this encounter (statuses as of 12/07/2022) [facility]04[facility] History of Past illness Narrative* Problem Noted Date Diagnosed Date Resolved Date Fascial defect 05/16/2021 05/19/2021 Last Assessment & Plan: -Scheduled for surgery Hypoglycemia due to type 2 diabetes mellitus 9 08/23/2020 Morbid obesity due to excess calories 04/12/2016 10/12/2016 Weakness 02/24/2016 08/28/2016 Myofascial pain 01/04/2016 08/28/2016 Acute nonsuppurative otitis media of right ear 09/05/2015 08/28/2016 Family history of ischemic heart disease 05/06/2015 08/28/2016 Mass of forearm 2015 2015 Cicatrix of skin 2015 2015 Ganglion of joint 08/24/2014 08/24/2014 Painful orthopaedic hardware 12/15/2013 08/28/2016 Flexor tendon rupture of hand 09/15/2013 08/28/2016 Lateral epicondylitis of right elbow 04/07/2013 08/28/2016 Trigger thumb of left hand 11/04/2012 0 08/28/2016 Displaced fracture of fifth metatarsal bone of left foot 09/08/2012 08/28/2016 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 Muscle mass 11/13/2011 08/28/2016 Type II 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, not stated as uncontrolled(250.60) 05/03/2011 04/25/2015 Lateral epicondylitis of left elbow 05/01/2011 08/23/2011 Wound dehiscence, surgical 04/03/2011 0 08/23/2011 Post-operative state 03/29/2011 012 Dizziness and giddiness 03/26/201108/11 Hereditary and idiopathic pe ripheral neuropathy 12/19/2010 08/28/2016 Lateral epicondylitis of elbow 12/11/2010 08/23/2011 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, 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) 11/01/2009 04/25/2015 Sprain of ankle, unspecified site 11/01/2009 08/28/2016 Thoracic or lumbosacral neur itis or radiculitis, unspecified 06/09/2009 08/28/2016 Wrist tendonitis 05/10/2009 08/23/2011 Pain in limb 08/29/2006 08/28/2016 Contusion of foot 08/29/2006 08/28/2016 PLANTAR Fasciitis 07/31/2005 08/28/2016 Residual foreign body in soft tissue 01/11/2005 08/28/2016 documented as of this encounter (statuses as of 12/07/2022) [facility]04[facility] History of Past illness Narrative* Problem Noted Date Diagnosed Date Resolved Date Fascial defect 05/16/2021 05/19/2021 Last Assessment & Plan: -Scheduled for surgery Hypoglycemia due to type 2 diabetes mellitus 9 08/23/2020 Morbid obesity due to excess calories 04/12/2016 10/12/2016 Weakness 02/24/2016 08/28/2016 Myofascial pain 01/04/2016 08/28/2016 Acute nonsuppurative otitis media of right ear 09/05/2015 08/28/2016 Family history of ischemic heart disease 05/06/2015 08/28/2016 Mass of forearm 2015 2015 Cicatrix of skin 2015 2015 Ganglion of joint 08/24/2014 08/24/2014 Painful orthopaedic hardware 12/15/2013 08/28/2016 Flexor tendon rupture of hand 09/15/2013 08/28/2016 Lateral epicondylitis of right elbow 04/07/2013 08/28/2016 Trigger thumb of left hand 11/04/2012 0 08/28/2016 Displaced fracture of fifth metatarsal bone of left foot 09/08/2012 08/28/2016 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 Muscle mass 11/13/2011 08/28/2016 Type II 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, not stated as uncontrolled(250.60) 05/03/2011 04/25/2015 Lateral epicondylitis of left elbow 05/01/2011 08/23/2011 Wound dehiscence, surgical 04/03/2011 0 08/23/2011 Post-operative state 03/29/2011 012 Dizziness and giddiness 03/26/201108/11 Hereditary and idiopathic pe ripheral neuropathy 12/19/2010 08/28/2016 Lateral epicondylitis of elbow 12/11/2010 08/23/2011 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, 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) 11/01/2009 04/25/2015 Sprain of ankle, unspecified site 11/01/2009 08/28/2016 Thoracic or lumbosacral neur itis or radiculitis, unspecified 06/09/2009 08/28/2016 Wrist tendonitis 05/10/2009 08/23/2011 Pain in limb 08/29/2006 08/28/2016 Contusion of foot 08/29/2006 08/28/2016 PLANTAR Fasciitis 07/31/2005 08/28/2016 Residual foreign body in soft tissue 01/11/2005 08/28/2016 documented as of this encounter (statuses as of 12/07/2022) [facility]04[facility] History of Past illness Narrative* Problem Noted Date Diagnosed Date Resolved Date Fascial defect 05/16/2021 05/19/2021 Last Assessment & Plan: -Scheduled for surgery Hypoglycemia due to type 2 diabetes mellitus 9 08/23/2020 Morbid obesity due to excess calories 04/12/2016 10/12/2016 Weakness 02/24/2016 08/28/2016 Myofascial pain 01/04/2016 08/28/2016 Acute nonsuppurative otitis media of right ear 09/05/2015 08/28/2016 Family history of ischemic heart disease 05/06/2015 08/28/2016 Mass of forearm 2015 2015 Cicatrix of skin 2015 2015 Ganglion of joint 08/24/2014 08/24/2014 Painful orthopaedic hardware 12/15/2013 08/28/2016 Flexor tendon rupture of hand 09/15/2013 08/28/2016 Lateral epicondylitis of right elbow 04/07/2013 08/28/2016 Trigger thumb of left hand 11/04/2012 0 08/28/2016 Displaced fracture of fifth metatarsal bone of left foot 09/08/2012 08/28/2016 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 Muscle mass 11/13/2011 08/28/2016 Type II 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, not stated as uncontrolled(250.60) 05/03/2011 04/25/2015 Lateral epicondylitis of left elbow 05/01/2011 08/23/2011 Wound dehiscence, surgical 04/03/2011 0 08/23/2011 Post-operative state 03/29/2011 012 Dizziness and giddiness 03/26/201108/11 Hereditary and idiopathic pe ripheral neuropathy 12/19/2010 08/28/2016 Lateral epicondylitis of elbow 12/11/2010 08/23/2011 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, 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) 11/01/2009 04/25/2015 Sprain of ankle, unspecified site 11/01/2009 08/28/2016 Thoracic or lumbosacral neur itis or radiculitis, unspecified 06/09/2009 08/28/2016 Wrist tendonitis 05/10/2009 08/23/2011 Pain in limb 08/29/2006 08/28/2016 Contusion of foot 08/29/2006 08/28/2016 PLANTAR Fasciitis 07/31/2005 08/28/2016 Residual foreign body in soft tissue 01/11/2005 08/28/2016 documented as of this encounter (statuses as of 12/11/2022) [facility]04[facility] History of Past illness Narrative* Problem Noted Date Diagnosed Date Resolved Date Fascial defect 05/16/2021 05/19/2021 Last Assessment & Plan: -Scheduled for surgery Hypoglycemia due to type 2 diabetes mellitus 9 08/23/2020 Morbid obesity due to excess calories 04/12/2016 10/12/2016 Weakness 02/24/2016 08/28/2016 Myofascial pain 01/04/2016 08/28/2016 Acute nonsuppurative otitis media of right ear 09/05/2015 08/28/2016 Family history of ischemic heart disease 05/06/2015 08/28/2016 Mass of forearm 2015 2015 Cicatrix of skin 2015 2015 Ganglion of joint 08/24/2014 08/24/2014 Painful orthopaedic hardware 12/15/2013 08/28/2016 Flexor tendon rupture of hand 09/15/2013 08/28/2016 Lateral epicondylitis of right elbow 04/07/2013 08/28/2016 Trigger thumb of left hand 11/04/2012 0 08/28/2016 Displaced fracture of fifth metatarsal bone of left foot 09/08/2012 08/28/2016 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 Muscle mass 11/13/2011 08/28/2016 Type II 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, not stated as uncontrolled(250.60) 05/03/2011 04/25/2015 Lateral epicondylitis of left elbow 05/01/2011 08/23/2011 Wound dehiscence, surgical 04/03/2011 0 08/23/2011 Post-operative state 03/29/2011 012 Dizziness and giddiness 03/26/201108/11 Hereditary and idiopathic pe ripheral neuropathy 12/19/2010 08/28/2016 Lateral epicondylitis of elbow 12/11/2010 08/23/2011 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, 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) 11/01/2009 04/25/2015 Sprain of ankle, unspecified site 11/01/2009 08/28/2016 Thoracic or lumbosacral neur itis or radiculitis, unspecified 06/09/2009 08/28/2016 Wrist tendonitis 05/10/2009 08/23/2011 Pain in limb 08/29/2006 08/28/2016 Contusion of foot 08/29/2006 08/28/2016 PLANTAR Fasciitis 07/31/2005 08/28/2016 Residual foreign body in soft tissue 01/11/2005 08/28/2016 documented as of this encounter (statuses as of 12/17/2022) [facility] History of Past illness Narrative* Problem Noted Date Diagnosed Date Resolved Date Fascial defect 05/16/2021 05/19/2021 Last Assessment & Plan: -Scheduled for surgery Hypoglycemia due to type 2 diabetes mellitus 9 08/23/2020 Morbid obesity due to excess calories 04/12/2016 10/12/2016 Weakness 02/24/2016 08/28/2016 Myofascial pain 01/04/2016 08/28/2016 Acute nonsuppurative otitis media of right ear 09/05/2015 08/28/2016 Family history of ischemic heart disease 05/06/2015 08/28/2016 Mass of forearm 2015 2015 Cicatrix of skin 2015 2015 Ganglion of joint 08/24/2014 08/24/2014 Painful orthopaedic hardware 12/15/2013 08/28/2016 Flexor tendon rupture of hand 09/15/2013 08/28/2016 Lateral epicondylitis of right elbow 04/07/2013 08/28/2016 Trigger thumb of left hand 11/04/2012 0 08/28/2016 Displaced fracture of fifth metatarsal bone of left foot 09/08/2012 08/28/2016 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 Muscle mass 11/13/2011 08/28/2016 Type II 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, not stated as uncontrolled(250.60) 05/03/2011 04/25/2015 Lateral epicondylitis of left elbow 05/01/2011 08/23/2011 Wound dehiscence, surgical 04/03/2011 0 08/23/2011 Post-operative state 03/29/2011 012 Dizziness and giddiness 03/26/201108/11 Hereditary and idiopathic pe ripheral neuropathy 12/19/2010 08/28/2016 Lateral epicondylitis of elbow 12/11/2010 08/23/2011 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, 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) 11/01/2009 04/25/2015 Sprain of ankle, unspecified site 11/01/2009 08/28/2016 Thoracic or lumbosacral neur itis or radiculitis, unspecified 06/09/2009 08/28/2016 Wrist tendonitis 05/10/2009 08/23/2011 Pain in limb 08/29/2006 08/28/2016 Contusion of foot 08/29/2006 08/28/2016 PLANTAR Fasciitis 07/31/2005 08/28/2016 Residual foreign body in soft tissue 01/11/2005 08/28/2016 documented as of this encounter (statuses as of 12/18/2022) [facility] History of Past illness Narrative* Problem Noted Date Diagnosed Date Resolved Date Fascial defect 05/16/2021 05/19/2021 Last Assessment & Plan: -Scheduled for surgery Hypoglycemia due to type 2 diabetes mellitus 9 08/23/2020 Morbid obesity due to excess calories 04/12/2016 10/12/2016 Weakness 02/24/2016 08/28/2016 Myofascial pain 01/04/2016 08/28/2016 Acute nonsuppurative otitis media of right ear 09/05/2015 08/28/2016 Family history of ischemic heart disease 05/06/2015 08/28/2016 Mass of forearm 2015 2015 Cicatrix of skin 2015 2015 Ganglion of joint 08/24/2014 08/24/2014 Painful orthopaedic hardware 12/15/2013 08/28/2016 Flexor tendon rupture of hand 09/15/2013 08/28/2016 Lateral epicondylitis of right elbow 04/07/2013 08/28/2016 Trigger thumb of left hand 11/04/2012 0 08/28/2016 Displaced fracture of fifth metatarsal bone of left foot 09/08/2012 08/28/2016 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 Muscle mass 11/13/2011 08/28/2016 Type II 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, not stated as uncontrolled(250.60) 05/03/2011 04/25/2015 Lateral epicondylitis of left elbow 05/01/2011 08/23/2011 Wound dehiscence, surgical 04/03/2011 0 08/23/2011 Post-operative state 03/29/2011 012 Dizziness and giddiness 03/26/201108/11 Hereditary and idiopathic pe ripheral neuropathy 12/19/2010 08/28/2016 Lateral epicondylitis of elbow 12/11/2010 08/23/2011 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, 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) 11/01/2009 04/25/2015 Sprain of ankle, unspecified site 11/01/2009 08/28/2016 Thoracic or lumbosacral neur itis or radiculitis, unspecified 06/09/2009 08/28/2016 Wrist tendonitis 05/10/2009 08/23/2011 Pain in limb 08/29/2006 08/28/2016 Contusion of foot 08/29/2006 08/28/2016 PLANTAR Fasciitis 07/31/2005 08/28/2016 Residual foreign body in soft tissue 01/11/2005 08/28/2016 documented as of this encounter (statuses as of 12/20/2022) [facility] History of Past illness Narrative* Problem Noted Date Diagnosed Date Resolved Date Fascial defect 05/16/2021 05/19/2021 Last Assessment & Plan: -Scheduled for surgery Hypoglycemia due to type 2 diabetes mellitus 9 08/23/2020 Morbid obesity due to excess calories 04/12/2016 10/12/2016 Weakness 02/24/2016 08/28/2016 Myofascial pain 01/04/2016 08/28/2016 Acute nonsuppurative otitis media of right ear 09/05/2015 08/28/2016 Family history of ischemic heart disease 05/06/2015 08/28/2016 Mass of forearm 2015 2015 Cicatrix of skin 2015 2015 Ganglion of joint 08/24/2014 08/24/2014 Painful orthopaedic hardware 12/15/2013 08/28/2016 Flexor tendon rupture of hand 09/15/2013 08/28/2016 Lateral epicondylitis of right elbow 04/07/2013 08/28/2016 Trigger thumb of left hand 11/04/2012 0 08/28/2016 Displaced fracture of fifth metatarsal bone of left foot 09/08/2012 08/28/2016 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 Muscle mass 11/13/2011 08/28/2016 Type II 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, not stated as uncontrolled(250.60) 05/03/2011 04/25/2015 Lateral epicondylitis of left elbow 05/01/2011 08/23/2011 Wound dehiscence, surgical 04/03/2011 0 08/23/2011 Post-operative state 03/29/2011 012 Dizziness and giddiness 03/26/201108/11 Hereditary and idiopathic pe ripheral neuropathy 12/19/2010 08/28/2016 Lateral epicondylitis of elbow 12/11/2010 08/23/2011 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, 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) 11/01/2009 04/25/2015 Sprain of ankle, unspecified site 11/01/2009 08/28/2016 Thoracic or lumbosacral neur itis or radiculitis, unspecified 06/09/2009 08/28/2016 Wrist tendonitis 05/10/2009 08/23/2011 Pain in limb 08/29/2006 08/28/2016 Contusion of foot 08/29/2006 08/28/2016 PLANTAR Fasciitis 07/31/2005 08/28/2016 Residual foreign body in soft tissue 01/11/2005 08/28/2016 documented as of this encounter (statuses as of 12/27/2022) [facility] History of Past illness Narrative* Problem Noted Date Diagnosed Date Resolved Date Fascial defect 05/16/2021 05/19/2021 Last Assessment & Plan: -Scheduled for surgery Hypoglycemia due to type 2 diabetes mellitus 9 08/23/2020 Morbid obesity due to excess calories 04/12/2016 10/12/2016 Weakness 02/24/2016 08/28/2016 Myofascial pain 01/04/2016 08/28/2016 Acute nonsuppurative otitis media of right ear 09/05/2015 08/28/2016 Family history of ischemic heart disease 05/06/2015 08/28/2016 Mass of forearm 2015 2015 Cicatrix of skin 2015 2015 Ganglion of joint 08/24/2014 08/24/2014 Painful orthopaedic hardware 12/15/2013 08/28/2016 Flexor tendon rupture of hand 09/15/2013 08/28/2016 Lateral epicondylitis of right elbow 04/07/2013 08/28/2016 Trigger thumb of left hand 11/04/2012 0 08/28/2016 Displaced fracture of fifth metatarsal bone of left foot 09/08/2012 08/28/2016 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 Muscle mass 11/13/2011 08/28/2016 Type II 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, not stated as uncontrolled(250.60) 05/03/2011 04/25/2015 Lateral epicondylitis of left elbow 05/01/2011 08/23/2011 Wound dehiscence, surgical 04/03/2011 0 08/23/2011 Post-operative state 03/29/2011 012 Dizziness and giddiness 03/26/201108/11 Hereditary and idiopathic pe ripheral neuropathy 12/19/2010 08/28/2016 Lateral epicondylitis of elbow 12/11/2010 08/23/2011 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, 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) 11/01/2009 04/25/2015 Sprain of ankle, unspecified site 11/01/2009 08/28/2016 Thoracic or lumbosacral neur itis or radiculitis, unspecified 06/09/2009 08/28/2016 Wrist tendonitis 05/10/2009 08/23/2011 Pain in limb 08/29/2006 08/28/2016 Contusion of foot 08/29/2006 08/28/2016 PLANTAR Fasciitis 07/31/2005 08/28/2016 Residual foreign body in soft tissue 01/11/2005 08/28/2016 documented as of this encounter (statuses as of 01/07/2023) [facility]04-05-2022 History of Past illness Narrative* Problem Noted Date Diagnosed Date Resolved Date Fascial defect 05/16/2021 05/19/2021 Last Assessment & Plan: -Scheduled for surgery Hypoglycemia due to type 2 diabetes mellitus 9 08/23/2020 Morbid obesity due to excess calories 04/12/2016 10/12/2016 Weakness 02/24/2016 08/28/2016 Myofascial pain 01/04/2016 08/28/2016 Acute nonsuppurative otitis media of right ear 09/05/2015 08/28/2016 Family history of ischemic heart disease 05/06/2015 08/28/2016 Mass of forearm 2015 2015 Cicatrix of skin 2015 2015 Ganglion of joint 08/24/2014 08/24/2014 Painful orthopaedic hardware 12/15/2013 08/28/2016 Flexor tendon rupture of hand 09/15/2013 08/28/2016 Lateral epicondylitis of right elbow 04/07/2013 08/28/2016 Trigger thumb of left hand 11/04/2012 0 08/28/2016 Displaced fracture of fifth metatarsal bone of left foot 09/08/2012 08/28/2016 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 Muscle mass 11/13/2011 08/28/2016 Type II 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, not stated as uncontrolled(250.60) 05/03/2011 04/25/2015 Lateral epicondylitis of left elbow 05/01/2011 08/23/2011 Wound dehiscence, surgical 04/03/2011 0 08/23/2011 Post-operative state 03/29/2011 012 Dizziness and giddiness 03/26/201108/11 Hereditary and idiopathic pe ripheral neuropathy 12/19/2010 08/28/2016 Lateral epicondylitis of elbow 12/11/2010 08/23/2011 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, 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) 11/01/2009 04/25/2015 Sprain of ankle, unspecified site 11/01/2009 08/28/2016 Thoracic or lumbosacral neur itis or radiculitis, unspecified 06/09/2009 08/28/2016 Wrist tendonitis 05/10/2009 08/23/2011 Pain in limb 08/29/2006 08/28/2016 Contusion of foot 08/29/2006 08/28/2016 PLANTAR Fasciitis 07/31/2005 08/28/2016 Residual foreign body in soft tissue 01/11/2005 08/28/2016 documented as of this encounter (statuses as of 01/07/2023) [facility]04[facility] History of Past illness Narrative* Problem Noted Date Diagnosed Date Resolved Date Fascial defect 05/16/2021 05/19/2021 Last Assessment & Plan: -Scheduled for surgery Hypoglycemia due to type 2 diabetes mellitus 9 08/23/2020 Morbid obesity due to excess calories 04/12/2016 10/12/2016 Weakness 02/24/2016 08/28/2016 Myofascial pain 01/04/2016 08/28/2016 Acute nonsuppurative otitis media of right ear 09/05/2015 08/28/2016 Family history of ischemic heart disease 05/06/2015 08/28/2016 Mass of forearm 2015 2015 Cicatrix of skin 2015 2015 Ganglion of joint 08/24/2014 08/24/2014 Painful orthopaedic hardware 12/15/2013 08/28/2016 Flexor tendon rupture of hand 09/15/2013 08/28/2016 Lateral epicondylitis of right elbow 04/07/2013 08/28/2016 Trigger thumb of left hand 11/04/2012 0 08/28/2016 Displaced fracture of fifth metatarsal bone of left foot 09/08/2012 08/28/2016 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 Muscle mass 11/13/2011 08/28/2016 Type II 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, not stated as uncontrolled(250.60) 05/03/2011 04/25/2015 Lateral epicondylitis of left elbow 05/01/2011 08/23/2011 Wound dehiscence, surgical 04/03/2011 0 08/23/2011 Post-operative state 03/29/2011 012 Dizziness and giddiness 03/26/201108/11 Hereditary and idiopathic pe ripheral neuropathy 12/19/2010 08/28/2016 Lateral epicondylitis of elbow 12/11/2010 08/23/2011 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, 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) 11/01/2009 04/25/2015 Sprain of ankle, unspecified site 11/01/2009 08/28/2016 Thoracic or lumbosacral neur itis or radiculitis, unspecified 06/09/2009 08/28/2016 Wrist tendonitis 05/10/2009 08/23/2011 Pain in limb 08/29/2006 08/28/2016 Contusion of foot 08/29/2006 08/28/2016 PLANTAR Fasciitis 07/31/2005 08/28/2016 Residual foreign body in soft tissue 01/11/2005 08/28/2016 documented as of this encounter (statuses as of 01/08/2023) [facility] History of Past illness Narrative* Problem Noted Date Diagnosed Date Resolved Date Fascial defect 05/16/2021 05/19/2021 Last Assessment & Plan: -Scheduled for surgery Hypoglycemia due to type 2 diabetes mellitus 9 08/23/2020 Morbid obesity due to excess calories 04/12/2016 10/12/2016 Weakness 02/24/2016 08/28/2016 Myofascial pain 01/04/2016 08/28/2016 Acute nonsuppurative otitis media of right ear 09/05/2015 08/28/2016 Family history of ischemic heart disease 05/06/2015 08/28/2016 Mass of forearm 2015 2015 Cicatrix of skin 2015 2015 Ganglion of joint 08/24/2014 08/24/2014 Painful orthopaedic hardware 12/15/2013 08/28/2016 Flexor tendon rupture of hand 09/15/2013 08/28/2016 Lateral epicondylitis of right elbow 04/07/2013 08/28/2016 Trigger thumb of left hand 11/04/2012 0 08/28/2016 Displaced fracture of fifth metatarsal bone of left foot 09/08/2012 08/28/2016 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 Muscle mass 11/13/2011 08/28/2016 Type II 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, not stated as uncontrolled(250.60) 05/03/2011 04/25/2015 Lateral epicondylitis of left elbow 05/01/2011 08/23/2011 Wound dehiscence, surgical 04/03/2011 0 08/23/2011 Post-operative state 03/29/2011 012 Dizziness and giddiness 03/26/201108/11 Hereditary and idiopathic pe ripheral neuropathy 12/19/2010 08/28/2016 Lateral epicondylitis of elbow 12/11/2010 08/23/2011 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, 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) 11/01/2009 04/25/2015 Sprain of ankle, unspecified site 11/01/2009 08/28/2016 Thoracic or lumbosacral neur itis or radiculitis, unspecified 06/09/2009 08/28/2016 Wrist tendonitis 05/10/2009 08/23/2011 Pain in limb 08/29/2006 08/28/2016 Contusion of foot 08/29/2006 08/28/2016 PLANTAR Fasciitis 07/31/2005 08/28/2016 Residual foreign body in soft tissue 01/11/2005 08/28/2016 documented as of this encounter (statuses as of 01/17/2023) [facility]04[facility] History of Past illness Narrative* Problem Noted Date Diagnosed Date Resolved Date Fascial defect 05/16/2021 05/19/2021 Last Assessment & Plan: -Scheduled for surgery Hypoglycemia due to type 2 diabetes mellitus 9 08/23/2020 Morbid obesity due to excess calories 04/12/2016 10/12/2016 Weakness 02/24/2016 08/28/2016 Myofascial pain 01/04/2016 08/28/2016 Acute nonsuppurative otitis media of right ear 09/05/2015 08/28/2016 Family history of ischemic heart disease 05/06/2015 08/28/2016 Mass of forearm 2015 2015 Cicatrix of skin 2015 2015 Ganglion of joint 08/24/2014 08/24/2014 Painful orthopaedic hardware 12/15/2013 08/28/2016 Flexor tendon rupture of hand 09/15/2013 08/28/2016 Lateral epicondylitis of right elbow 04/07/2013 08/28/2016 Trigger thumb of left hand 11/04/2012 0 08/28/2016 Displaced fracture of fifth metatarsal bone of left foot 09/08/2012 08/28/2016 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 Muscle mass 11/13/2011 08/28/2016 Type II 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, not stated as uncontrolled(250.60) 05/03/2011 04/25/2015 Lateral epicondylitis of left elbow 05/01/2011 08/23/2011 Wound dehiscence, surgical 04/03/2011 0 08/23/2011 Post-operative state 03/29/2011 012 Dizziness and giddiness 03/26/201108/11 Hereditary and idiopathic pe ripheral neuropathy 12/19/2010 08/28/2016 Lateral epicondylitis of elbow 12/11/2010 08/23/2011 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, 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) 11/01/2009 04/25/2015 Sprain of ankle, unspecified site 11/01/2009 08/28/2016 Thoracic or lumbosacral neur itis or radiculitis, unspecified 06/09/2009 08/28/2016 Wrist tendonitis 05/10/2009 08/23/2011 Pain in limb 08/29/2006 08/28/2016 Contusion of foot 08/29/2006 08/28/2016 PLANTAR Fasciitis 07/31/2005 08/28/2016 Residual foreign body in soft tissue 01/11/2005 08/28/2016 documented as of this encounter (statuses as of 01/18/2023) [facility] History of Past illness Narrative* Problem Noted Date Diagnosed Date Resolved Date Fascial defect 05/16/2021 05/19/2021 Last Assessment & Plan: -Scheduled for surgery Hypoglycemia due to type 2 diabetes mellitus 9 08/23/2020 Morbid obesity due to excess calories 04/12/2016 10/12/2016 Weakness 02/24/2016 08/28/2016 Myofascial pain 01/04/2016 08/28/2016 Acute nonsuppurative otitis media of right ear 09/05/2015 08/28/2016 Family history of ischemic heart disease 05/06/2015 08/28/2016 Mass of forearm 2015 2015 Cicatrix of skin 2015 2015 Ganglion of joint 08/24/2014 08/24/2014 Painful orthopaedic hardware 12/15/2013 08/28/2016 Flexor tendon rupture of hand 09/15/2013 08/28/2016 Lateral epicondylitis of right elbow 04/07/2013 08/28/2016 Trigger thumb of left hand 11/04/2012 0 08/28/2016 Displaced fracture of fifth metatarsal bone of left foot 09/08/2012 08/28/2016 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 Muscle mass 11/13/2011 08/28/2016 Type II 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, not stated as uncontrolled(250.60) 05/03/2011 04/25/2015 Lateral epicondylitis of left elbow 05/01/2011 08/23/2011 Wound dehiscence, surgical 04/03/2011 0 08/23/2011 Post-operative state 03/29/2011 012 Dizziness and giddiness 03/26/201108/11 Hereditary and idiopathic pe ripheral neuropathy 12/19/2010 08/28/2016 Lateral epicondylitis of elbow 12/11/2010 08/23/2011 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, 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) 11/01/2009 04/25/2015 Sprain of ankle, unspecified site 11/01/2009 08/28/2016 Thoracic or lumbosacral neur itis or radiculitis, unspecified 06/09/2009 08/28/2016 Wrist tendonitis 05/10/2009 08/23/2011 Pain in limb 08/29/2006 08/28/2016 Contusion of foot 08/29/2006 08/28/2016 PLANTAR Fasciitis 07/31/2005 08/28/2016 Residual foreign body in soft tissue 01/11/2005 08/28/2016 documented as of this encounter (statuses as of 01/23/2023) [facility]04[facility] History of Past illness Narrative* Problem Noted Date Diagnosed Date Resolved Date Fascial defect 05/16/2021 05/19/2021 Last Assessment & Plan: -Scheduled for surgery Hypoglycemia due to type 2 diabetes mellitus 9 08/23/2020 Morbid obesity due to excess calories 04/12/2016 10/12/2016 Weakness 02/24/2016 08/28/2016 Myofascial pain 01/04/2016 08/28/2016 Acute nonsuppurative otitis media of right ear 09/05/2015 08/28/2016 Family history of ischemic heart disease 05/06/2015 08/28/2016 Mass of forearm 2015 2015 Cicatrix of skin 2015 2015 Ganglion of joint 08/24/2014 08/24/2014 Painful orthopaedic hardware 12/15/2013 08/28/2016 Flexor tendon rupture of hand 09/15/2013 08/28/2016 Lateral epicondylitis of right elbow 04/07/2013 08/28/2016 Trigger thumb of left hand 11/04/2012 0 08/28/2016 Displaced fracture of fifth metatarsal bone of left foot 09/08/2012 08/28/2016 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 Muscle mass 11/13/2011 08/28/2016 Type II 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, not stated as uncontrolled(250.60) 05/03/2011 04/25/2015 Lateral epicondylitis of left elbow 05/01/2011 08/23/2011 Wound dehiscence, surgical 04/03/2011 0 08/23/2011 Post-operative state 03/29/2011 012 Dizziness and giddiness 03/26/201108/11 Hereditary and idiopathic pe ripheral neuropathy 12/19/2010 08/28/2016 Lateral epicondylitis of elbow 12/11/2010 08/23/2011 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, 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) 11/01/2009 04/25/2015 Sprain of ankle, unspecified site 11/01/2009 08/28/2016 Thoracic or lumbosacral neur itis or radiculitis, unspecified 06/09/2009 08/28/2016 Wrist tendonitis 05/10/2009 08/23/2011 Pain in limb 08/29/2006 08/28/2016 Contusion of foot 08/29/2006 08/28/2016 PLANTAR Fasciitis 07/31/2005 08/28/2016 Residual foreign body in soft tissue 01/11/2005 08/28/2016 documented as of this encounter (statuses as of 01/24/2023) [facility]04[facility] History of Past illness Narrative* Problem Noted Date Diagnosed Date Resolved Date Fascial defect 05/16/2021 05/19/2021 Last Assessment & Plan: -Scheduled for surgery Hypoglycemia due to type 2 diabetes mellitus 9 08/23/2020 Morbid obesity due to excess calories 04/12/2016 10/12/2016 Weakness 02/24/2016 08/28/2016 Myofascial pain 01/04/2016 08/28/2016 Acute nonsuppurative otitis media of right ear 09/05/2015 08/28/2016 Family history of ischemic heart disease 05/06/2015 08/28/2016 Mass of forearm 2015 2015 Cicatrix of skin 2015 2015 Ganglion of joint 08/24/2014 08/24/2014 Painful orthopaedic hardware 12/15/2013 08/28/2016 Flexor tendon rupture of hand 09/15/2013 08/28/2016 Lateral epicondylitis of right elbow 04/07/2013 08/28/2016 Trigger thumb of left hand 11/04/2012 0 08/28/2016 Displaced fracture of fifth metatarsal bone of left foot 09/08/2012 08/28/2016 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 Muscle mass 11/13/2011 08/28/2016 Type II 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, not stated as uncontrolled(250.60) 05/03/2011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 Glucose-Ketones Test (KETO-DIASTIX) strp 1 Strip as needed. glucagon (GLUCAGEN HYPOKIT) 1 mg injection Inject 1 mg subcutaneously one time only for 1 dose. No current facility-administered medications for this visit. Examination: 51-year-old female no acute distress. Alert and oriented x3. 4 feet 11 inches tall 2030 pounds. Area of suspected defect is approximately 3 cm distal to proximal and approximately 1 cm in width. I think I can appreciate the edges of the fascial defect. Contents are reducible. Radiologic review: MRI ordered by me and to my review does not show recurrent cyst on the volar aspect. Impression: Fascial defect volar distal wrist. Patient wishes to undergo some type of procedure to relieve the discomfort. Hopefully we can primarily repair this. She is aware the fact that this may not be able to be done. I will review this case with one of my colleagues. The plan is for a primaryrepair fascial defect right volar wrist under a block. We discussed the risks, benefits, goals, expectations, outcomes, and complications including nerve injury and vascular injury as well as the possibility of failure of the surgical procedure to remedy the complaint. In addition, we also discussed the risk of COVID 19 exposure throughout the surgical process . All the patient's questions were answered to their satisfaction. Consents were then signed. This note was partially generated using [employer] voice recognition system and as such may contain grammatical or word errors Pierre Varela MD At the conclusion of the office visit, the patient was asked if they had any questions regarding the diagnosis or care. Also, ample time was provided for the patient to ask any questions regarding the diagnosis therefore plan of care. All the patient's questions if asked were answered to their satisfaction. This note was partially generated using [employer] voice recognition system and as such may contain grammatical or word errors Pierre Varela MD documented [facility] encounterC[facility] Miscellaneous Notes* Telephone Encounter - Farrah Beckford LPN - 05/05/2021 12:45 PM EDT Patient has been identified by name and date of : Yes Patient phones for refill(s): Pending Prescriptions Disp Refills MECLIZINE 25 MG TABLET 45 tablet 1 Sig: Take 1 tablet by mouth three times daily as needed (vertigo). SHONDA: No Date of last office visit in primary care: 03/10/21 Last 2 Encounter Wt Readings: Date: Wt: 04/27/2021 106.1 kg (234 lb) 03/31/2021 106.5 kg (234 lb 12.8 oz) Previous labs/tests for medication: Not applicable Please advise. Thank you. Farrah Beckford LPN documented in this encounterC[facility] History of Present illness Narrative* Lulu Abbasi ([employer] Gagan - 03/24/2020 1:00 PM EST RADIOLOGY SERVICE PROGRESS NOTE SERVICE DATE: 03/24/2020 SERVICE TIME: 12:47 PM PATIENT IDENTITY VERIFICATION COMPLETED USING TWO (2) STANDARD IDENTIFIERS: Name and Date of confirmed by patient verbally FALL SCREENING: Has the patient had 2 falls in the last year or 1 fall with injury or currently using an Ambulatory Assistive Device (Walker, Cane, Wheelchair, Crutches, etc.)? No PATIENT GENDER DATA: .female : No ALLERGIES: Reviewed and unchanged MEDICATIONS REVIEWED: Not applicable PATIENT RELEVANT IMPLANT DATA REVIEWED: Not Applicable CREATININE: Creatinine Date Value Ref Range Status 03/21/2020 0.76 0.58 - 0.96 mg/dL Final 01/13/2020 0.69 0.58 - 0.96 mg/dL Final 03/03/2019 0.79 0.58 - 0.96 mg/dL Final eGFR-All Other Races Date Value Ref Range Status 03/21/2020 >60 . Final Comment: eGFR (Estimated GFR) Units of measure: mL/min/1.73 meters squared eGFR is derived from the reexpressed MDRD Study equation using the following parameters: serum creatinine, age, gender and race. The creatinine assay has been calibrated to be traceable to IDMS. An eGFR <60 mL/min/1.73m2 for >3 months is consistent with chronic kidney disease. Refer to KDOQI guidelines for clinical interpretation. In patients with unstable renal function, e.g. those with acute kidney injury, the eGFR may not accurately reflect actual GFR. eGFR- Date Value Ref Range Status 03/21/2020 >60 Final P.O.C.T. RESULTS: N/A March 24, [address] PERFORMED: No IV SITE: Ambulatory: A peripheral IV was started in the Right antecubital site with a Angio cath: 22 gauge. POST EXAM PIV STATUS: Discontinued PROCEDURE TYPE: NM Stress: 16.5mCi [id number] was administered IV for Rest Imaging at 12:40pm byGagan Kitchen . 50.4 mCi [id number] was administered IV for Stress Imaging at 13:40 by Gagan Kitchen. PATIENT DISCHARGED TO: Ambulatory patient, left NM department area. A Diagnostic radioactive procedure has taken place, with no further precautions necessary other than routine body substance precautions. More information regarding radiation safety can be found usingthis link: [email or web address] SIGNATURE: Gagan Kitchen PATIENT NAME: Jacque Rodriguez DATE: March 24, 2020 TIME: 12:47 PM PAGER/CONTACT #: documented in this encounterC[facility] History of Past illness Narrative* Problem Noted Date Resolved Date Hypoglycemia due to type 2 diabetes mellitus 08/23/2020 Morbid obesity due to excess calories 04/12/2016 10/12/2016 Weakness 02/24/2016 08/28/2016 Myofascial pain 01/04/2016 08/28/2016 Acute nonsuppurative otitis media of right ear 0 09/05/2015 08/28/2016 Family history of ischemic heart disease 016 08/28/2016 Mass of forearm 2015 2015 Cicatrix of skin 2015 2015 Ganglion of joint 08/24/2014 08/24/2014 Painful orthopaedic hardware 12/15/2013 Flexor tendon rupture of hand 09/15/2013 Lateral epicondylitis of right elbow 04/07/2013 08/28/2016 Trigger thumb of left hand 11/04/201208/28 Displaced fracture of fifth metatarsal bone of l eft foot 09/08/2012 08/28/2016 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2016 Muscle mass 11/13/2011 08/28/2016 Type II 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, not stated as uncontrolled(250.60) 05/03/2011 04/25/2015 Lateral epicondylitis of left elbow 05/01/2011 08/23/2011 Wound dehiscence, surgical 04/03/201108/22 Post-operative state 03/29/2011 08/23/2011 Dizziness and giddiness 03/26/2011 08/29/19 17 Hereditary and idiopathic peripheral neuropathy 12/19/2010 08/28/2016 Lateral epicondylitis of elbow 12/11/2010 0 08/23/2011 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, 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) 11/01/2009 Sprain of ankle, unspecified site 11/01/2009 08/28/2016 Thoracic or lumbosacral neuritis or radiculitis, unspecified 06/09/2009 08/28/2016 Wrist tendonitis 05/10/2009 08/23/2011 Pain in limb 08/29/2006 08/28/2016 Contusion of foot 08/29/2006 08/28/2016 PLANTAR Fasciitis 07/31/2005 08/28/2016 Residual foreign body in soft tissue 01/11/2005 08/28/2016 documented as of this encounter (statuses as of 05/05/2021) [facility] History of Past illness Narrative* Problem Noted Date Resolved Date Hypoglycemia due to type 2 diabetes mellitus 08/23/2020 Morbid obesity due to excess calories 04/12/2016 10/12/2016 Weakness 02/24/2016 08/28/2016 Myofascial pain 01/04/2016 08/28/2016 Acute nonsuppurative otitis media of right ear 0 09/05/2015 08/28/2016 Family history of ischemic heart disease 016 08/28/2016 Mass of forearm 2015 2015 Cicatrix of skin 2015 2015 Ganglion of joint 08/24/2014 08/24/2014 Painful orthopaedic hardware 12/15/2013 Flexor tendon rupture of hand 09/15/2013 Lateral epicondylitis of right elbow 04/07/2013 08/28/2016 Trigger thumb of left hand 11/04/201208/28 Displaced fracture of fifth metatarsal bone of l eft foot 09/08/2012 08/28/2016 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2016 Muscle mass 11/13/2011 08/28/2016 Type II 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, not stated as uncontrolled(250.60) 05/03/2011 04/25/2015 Lateral epicondylitis of left elbow 05/01/2011 08/23/2011 Wound dehiscence, surgical 04/03/201108/22 Post-operative state 03/29/2011 08/23/2011 Dizziness and giddiness 03/26/2011 08/29/19 17 Hereditary and idiopathic peripheral neuropathy 12/19/2010 08/28/2016 Lateral epicondylitis of elbow 12/11/2010 0 08/23/2011 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, 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) 11/01/2009 Sprain of ankle, unspecified site 11/01/2009 08/28/2016 Thoracic or lumbosacral neuritis or radiculitis, unspecified 06/09/2009 08/28/2016 Wrist tendonitis 05/10/2009 08/23/2011 Pain in limb 08/29/2006 08/28/2016 Contusion of foot 08/29/2006 08/28/2016 PLANTAR Fasciitis 07/31/2005 08/28/2016 Residual foreign body in soft tissue 01/11/2005 08/28/2016 documented as of this encounter (statuses as of 05/11/2021) [facility] of Past illness Narrative* Problem Noted Date Resolved Date Hypoglycemia due to type 2 diabetes mellitus 08/23/2020 Morbid obesity due to excess calories 04/12/2016 10/12/2016 Weakness 02/24/2016 08/28/2016 Myofascial pain 01/04/2016 08/28/2016 Acute nonsuppurative otitis media of right ear 0 09/05/2015 08/28/2016 Family history of ischemic heart disease 016 08/28/2016 Mass of forearm 2015 2015 Cicatrix of skin 2015 2015 Ganglion of joint 08/24/2014 08/24/2014 Painful orthopaedic hardware 12/15/2013 Flexor tendon rupture of hand 09/15/2013 Lateral epicondylitis of right elbow 04/07/2013 08/28/2016 Trigger thumb of left hand 11/04/201208/28 Displaced fracture of fifth metatarsal bone of l eft foot 09/08/2012 08/28/2016 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2016 Muscle mass 11/13/2011 08/28/2016 Type II 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, not stated as uncontrolled(250.60) 05/03/2011 04/25/2015 Lateral epicondylitis of left elbow 05/01/2011 08/23/2011 Wound dehiscence, surgical 04/03/201108/22 Post-operative state 03/29/2011 08/23/2011 Dizziness and giddiness 03/26/2011 08/29/19 17 Hereditary and idiopathic peripheral neuropathy 12/19/2010 08/28/2016 Lateral epicondylitis of elbow 12/11/2010 0 08/23/2011 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, 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) 11/01/2009 Sprain of ankle, unspecified site 11/01/2009 08/28/2016 Thoracic or lumbosacral neuritis or radiculitis, unspecified 06/09/2009 08/28/2016 Wrist tendonitis 05/10/2009 08/23/2011 Pain in limb 08/29/2006 08/28/2016 Contusion of foot 08/29/2006 08/28/2016 PLANTAR Fasciitis 07/31/2005 08/28/2016 Residual foreign body in soft tissue 01/11/2005 08/28/2016 documented as of this encounter (statuses as of 05/15/2021) [facility]28[facility]2019 History of Past illness Narrative* Problem Noted Date Resolved Date Hypoglycemia due to type 2 diabetes mellitus 08/23/2020 Morbid obesity due to excess calories 04/12/2016 10/12/2016 Weakness 02/24/2016 08/28/2016 Myofascial pain 01/04/2016 08/28/2016 Acute nonsuppurative otitis media of right ear 0 09/05/2015 08/28/2016 Family history of ischemic heart disease 016 08/28/2016 Mass of forearm 2015 2015 Cicatrix of skin 2015 2015 Ganglion of joint 08/24/2014 08/24/2014 Painful orthopaedic hardware 12/15/2013 Flexor tendon rupture of hand 09/15/2013 Lateral epicondylitis of right elbow 04/07/2013 08/28/2016 Trigger thumb of left hand 11/04/201208/28 Displaced fracture of fifth metatarsal bone of l eft foot 09/08/2012 08/28/2016 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2016 Muscle mass 11/13/2011 08/28/2016 Type II 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, not stated as uncontrolled(250.60) 05/03/2011 04/25/2015 Lateral epicondylitis of left elbow 05/01/2011 08/23/2011 Wound dehiscence, surgical 04/03/201108/22 Post-operative state 03/29/2011 08/23/2011 Dizziness and giddiness 03/26/2011 08/29/19 17 Hereditary and idiopathic peripheral neuropathy 12/19/2010 08/28/2016 Lateral epicondylitis of elbow 12/11/2010 0 08/23/2011 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, 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) 11/01/2009 Sprain of ankle, unspecified site 11/01/2009 08/28/2016 Thoracic or lumbosacral neuritis or radiculitis, unspecified 06/09/2009 08/28/2016 Wrist tendonitis 05/10/2009 08/23/2011 Pain in limb 08/29/2006 08/28/2016 Contusion of foot 08/29/2006 08/28/2016 PLANTAR Fasciitis 07/31/2005 08/28/2016 Residual foreign body in soft tissue 01/11/2005 08/28/2016 documented as of this encounter (statuses as of 05/15/2021) [facility] History of Past illness Narrative* Problem Noted Date Resolved Date Hypoglycemia due to type 2 diabetes mellitus 08/23/2020 Morbid obesity due to excess calories 04/12/2016 10/12/2016 Weakness 02/24/2016 08/28/2016 Myofascial pain 01/04/2016 08/28/2016 Acute nonsuppurative otitis media of right ear 0 09/05/2015 08/28/2016 Family history of ischemic heart disease 016 08/28/2016 Mass of forearm 2015 2015 Cicatrix of skin 2015 2015 Ganglion of joint 08/24/2014 08/24/2014 Painful orthopaedic hardware 12/15/2013 Flexor tendon rupture of hand 09/15/2013 Lateral epicondylitis of right elbow 04/07/2013 08/28/2016 Trigger thumb of left hand 11/04/201208/28 Displaced fracture of fifth metatarsal bone of l eft foot 09/08/2012 08/28/2016 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2016 Muscle mass 11/13/2011 08/28/2016 Type II 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, not stated as uncontrolled(250.60) 05/03/2011 04/25/2015 Lateral epicondylitis of left elbow 05/01/2011 08/23/2011 Wound dehiscence, surgical 04/03/201108/22 Post-operative state 03/29/2011 08/23/2011 Dizziness and giddiness 03/26/2011 08/29/19 17 Hereditary and idiopathic peripheral neuropathy 12/19/2010 08/28/2016 Lateral epicondylitis of elbow 12/11/2010 0 08/23/2011 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, 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) 11/01/2009 Sprain of ankle, unspecified site 11/01/2009 08/28/2016 Thoracic or lumbosacral neuritis or radiculitis, unspecified 06/09/2009 08/28/2016 Wrist tendonitis 05/10/2009 08/23/2011 Pain in limb 08/29/2006 08/28/2016 Contusion of foot 08/29/2006 08/28/2016 PLANTAR Fasciitis 07/31/2005 08/28/2016 Residual foreign body in soft tissue 01/11/2005 08/28/2016 documented as of this encounter (statuses as of 05/16/2021) [facility] History of Past illness Narrative* Problem Noted Date Diagnosed Date Resolved Date Hypoglycemia due to type 2 diabetes mellitus 9 08/23/2020 Morbid obesity due to excess calories 04/12/2016 10/12/2016 Weakness 02/24/2016 08/28/2016 Myofascial pain 01/04/2016 08/28/2016 Acute nonsuppurative otitis media of right ear 09/05/2015 08/28/2016 Family history of ischemic heart disease 05/06/2015 08/28/2016 Mass of forearm 2015 2015 Cicatrix of skin 2015 2015 Ganglion of joint 08/24/2014 08/24/2014 Painful orthopaedic hardware 12/15/2013 08/28/2016 Flexor tendon rupture of hand 09/15/2013 08/28/2016 Lateral epicondylitis of right elbow 04/07/2013 08/28/2016 Trigger thumb of left hand 11/04/2012 0 08/28/2016 Displaced fracture of fifth metatarsal bone of left foot 09/08/2012 08/28/2016 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 Muscle mass 11/13/2011 08/28/2016 Type II 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, not stated as uncontrolled(250.60) 05/03/2011 04/25/2015 Lateral epicondylitis of left elbow 05/01/2011 08/23/2011 Wound dehiscence, surgical 04/03/2011 0 08/23/2011 Post-operative state 03/29/2011 012 Dizziness and giddiness 03/26/201108/11 Hereditary and idiopathic pe ripheral neuropathy 12/19/2010 08/28/2016 Lateral epicondylitis of elbow 12/11/2010 08/23/2011 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, 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) 11/01/2009 04/25/2015 Sprain of ankle, unspecified site 11/01/2009 08/28/2016 Thoracic or lumbosacral neur itis or radiculitis, unspecified 06/09/2009 08/28/2016 Wrist tendonitis 05/10/2009 08/23/2011 Pain in limb 08/29/2006 08/28/2016 Contusion of foot 08/29/2006 08/28/2016 PLANTAR Fasciitis 07/31/2005 08/28/2016 Residual foreign body in soft tissue 01/11/2005 08/28/2016 documented as of this encounter (statuses as of 12/17/2022) [address]28-2019 History of Past illness Narrative* Problem Noted Date Diagnosed Date Resolved Date Hypoglycemia due to type 2 diabetes mellitus 9 08/23/2020 Morbid obesity due to excess calories 04/12/2016 10/12/2016 Weakness 02/24/2016 08/28/2016 Myofascial pain 01/04/2016 08/28/2016 Acute nonsuppurative otitis media of right ear 09/05/2015 08/28/2016 Family history of ischemic heart disease 05/06/2015 08/28/2016 Mass of forearm 2015 2015 Cicatrix of skin 2015 2015 Ganglion of joint 08/24/2014 08/24/2014 Painful orthopaedic hardware 12/15/2013 08/28/2016 Flexor tendon rupture of hand 09/15/2013 08/28/2016 Lateral epicondylitis of right elbow 04/07/2013 08/28/2016 Trigger thumb of left hand 11/04/2012 0 08/28/2016 Displaced fracture of fifth metatarsal bone of left foot 09/08/2012 08/28/2016 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 Muscle mass 11/13/2011 08/28/2016 Type II 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, not stated as uncontrolled(250.60) 05/03/2011 04/25/2015 Lateral epicondylitis of left elbow 05/01/2011 08/23/2011 Wound dehiscence, surgical 04/03/2011 0 08/23/2011 Post-operative state 03/29/2011 012 Dizziness and giddiness 03/26/201108/11 Hereditary and idiopathic pe ripheral neuropathy 12/19/2010 08/28/2016 Lateral epicondylitis of elbow 12/11/2010 08/23/2011 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, 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) 11/01/2009 04/25/2015 Sprain of ankle, unspecified site 11/01/2009 08/28/2016 Thoracic or lumbosacral neur itis or radiculitis, unspecified 06/09/2009 08/28/2016 Wrist tendonitis 05/10/2009 08/23/2011 Pain in limb 08/29/2006 08/28/2016 Contusion of foot 08/29/2006 08/28/2016 PLANTAR Fasciitis 07/31/2005 08/28/2016 Residual foreign body in soft tissue 01/11/2005 08/28/2016 documented as of this encounter (statuses as of 12/17/2022) [facility] note* Diagnosis Mass of right wrist [facility] [place] [facility]* Diagnosis Fascial defect- Primary Unspecified disorder of muscle, ligament, and fascia Right wrist pain Pain in joint, forearm Fascial defect Unspecified disorder of muscle, ligament, and fascia Right wrist pain Pain in joint, forearm Mass of right wrist [facility] [place] [facility]* Diagnosis Fascial defect- Primary Unspecified disorder of muscle, ligament, and fascia Right wrist pain Pain in joint, forearm Mass of right wrist Fascial defect Unspecified disorder of muscle, ligament, and fascia Right wrist pain Pain in joint, forearm Mass of right wrist [facility] [place] [facility]* Diagnosis Pre-op evaluation- Primary Preoperative examination, unspecified Fascial defect Unspecified disorder of muscle, ligament, and fascia Tachycardia, unspecified MVP (mitral valve prolapse) Mitral valve disorders Difficult airway for intubation, subsequent encounter Gastroparesis Gastroesophageal reflux disease, unspecified whether esophagitis present Type 2 diabetes mellitus with microalbuminuria, with long-term current use of insulin ([facility]) Class 3 severe obesity with serious comorbidity and body mass index (BMI) of 40.0 to 44.9 in adult, unspecified obesity type ([facility]) Elevated factor VIII level Fascial defect Unspecified disorder of muscle, ligament, and fascia Right wrist pain Pain in joint, forearm Mass of right wrist documented in this encounter [facility] note* Diagnosis Fascial defect- Primary Unspecified disorder of muscle, ligament, and fascia Right wrist pain Pain in joint, forearm Post-operative state Other postprocedural status [facility] [place] [facility]* Diagnosis Post-operative state- Primary Other postprocedural status [facility] [place] [facility]* Diagnosis HSV (herpes simplex virus) infection- Primary Herpes simplex without mention of complication Open wound of skin [facility] [place] [facility] Diagnosis Acute pain of right shoulder- Primary [facility] [place] [facility]* Diagnosis Left lumbar radiculopathy Thoracic or lumbosacral neuritis or radiculitis, unspecified [facility] Type 2 diabetes mellitus with diabetic polyneuropathy, with long-term current use of insulin (HCC) [facility] Diagnosis Type 2 diabetes mellitus with diabetic polyneuropathy, with long-term current use of insulin (HCC)- Primary Hypoglycemia unawareness associated with type 2 diabetes mellitus (HCC) Gastroparesis Common wart Other specified viral warts Screening for colon cancer Special screening for malignant neoplasms, colon Screening for cervical cancer Screening for malignant neoplasm of the cervix [facility] [place] [facility] Diagnosis Neck strain, subsequent encounter- Primary [facility] Diagnosis Upper back pain- Primary [facility] Diagnosis Encounter for screening mammogram for breast cancer [facility] Diagnosis Open wound of skin HSV (herpes simplex virus) infection Herpes simplex without mention of complication [facility] Diagnosis Degeneration of thoracic intervertebral disc- Primary Degeneration of thoracic or thoracolumbar intervertebral disc Upper back pain Upper back pain on right side Pain in thoracic spine Chronic bilateral low back pain with left-sided sciatica Myofascial pain Mylagia and myositis, unspecified Sacroiliac joint dysfunction of both sides Disorders of sacrum [facility]* Diagnosis Type 2 diabetes mellitus with diabetic polyneuropathy, with long-term current use of insulin (HCC)- Primary Insulin pump in place Insulin pump status Hypoglycemia unawareness associated with type 2 diabetes mellitus (HCC) Insulin resistance Dysmetabolic Syndrome X Essential hypertension Unspecified essential hypertension Pure hypercholesterolemia Vitamin D deficiency Unspecified vitamin D deficiency Obesity, Class III, BMI 40-49.9 (morbid obesity) (HCC) Morbid obesity [facility] [place] [facility]* Diagnosis Type 2 diabetes mellitus with diabetic polyneuropathy, with long-term current use of insulin (HCC) [facility] Diagnosis Left knee injury, initial encounter- Primary Right wrist injury, initial encounter [facility] Diagnosis URI, acute- Primary Acute upper respiratory infections of unspecified site [facility] [place] [facility] Diagnosis COVID-19- Primary [facility] [place] [facility]* Diagnosis COVID-19 [facility] [place] [facility]* Diagnosis Left lumbar radiculopathy Thoracic or lumbosacral neuritis or radiculitis, unspecified Open wound of skin HSV (herpes simplex virus) infection Herpes simplex without mention of complication [facility] [place] [facility]* Diagnosis Open wound of skin HSV (herpes simplex virus) infection Herpes simplex without mention of complication [facility] [place] [facility]* Diagnosis Left lumbar radiculopathy Thoracic or lumbosacral neuritis or radiculitis, unspecified Open wound of skin HSV (herpes simplex virus) infection Herpes simplex without mention of complication [facility] [place] [facility]* Diagnosis Tear of medial meniscus of left knee, current, unspecified tear type, initial encounter- Primary [facility] [place] [facility]* Diagnosis Tear of medial meniscus of left knee, current, unspecified tear type, initial encounter- Primary [facility] [place] [facility]* Diagnosis Tear of medial meniscus of left knee, current, unspecified tear type, initial encounter- Primary [facility] [place] [facility]* Diagnosis Tear of medial meniscus of left knee, current, unspecified tear type, initial encounter- Primary [facility] [place] [facility]* Diagnosis Post-COVID chronic cough- Primary [facility] [place] [facility]* Diagnosis Dizziness- Primary Dizziness and giddiness [facility] [place] [facility]* Diagnosis Acute pain of left knee [facility] [place] [facility]* Diagnosis Trigger index finger of left hand- Primary Trigger finger (acquired) Trigger index finger of left hand Trigger finger (acquired) [facility] [place] [facility] Diagnosis Trigger index finger of left hand- Primary Trigger finger (acquired) Trigger index finger of left hand Trigger finger (acquired) [facility] [place] [facility]* Diagnosis Trace mitral valve regurgitation- Primary Dizziness Dizziness and giddiness Trigger index finger of left hand Trigger finger (acquired) [facility] [place] [facility]* Diagnosis Morbid obesity (HCC) Morbid obesity Gastroesophageal reflux disease, unspecified whether esophagitis present Gastroparesis Type 2 diabetes mellitus with microalbuminuria, 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 Former smoker Personal history of tobacco use, presenting hazards to health MVP (mitral valve prolapse) Mitral valve disorders Tachycardia, unspecified Trigger index finger of left hand Trigger finger (acquired) [facility] Trigger index finger of left hand- Primary Trigger finger (acquired) [facility] Diagnosis Vertigo- Primary Dizziness and giddiness BPPV (benign paroxysmal positional vertigo), unspecified laterality COVID-19 [facility] Subacute cough Cough Tinnitus aurium, 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, with long-term current use of insulin (HCC) [facility] COVID-19 [facility] Subacute cough Cough [facility] Diagnosis COVID-19 [facility] Subacute cough Cough [facility]* Diagnosis BPPV (benign paroxysmal positional vertigo), unspecified laterality COVID-19 [facility]* Diagnosis Type 2 diabetes mellitus with diabetic polyneuropathy, with long-term current use of insulin (HCC) [facility] Diagnosis Viral URI- Primary Acute upper respiratory infections of unspecified site [facility]* Diagnosis Dizzy Dizziness and giddiness [facility]* Diagnosis Pain in right wrist- Primary Pain in joint, forearm [facility] Diagnosis Acute pain of left knee- Primary [facility]* Diagnosis Chronic bilateral low back pain with left-sided sciatica- Primary [facility]* Diagnosis Type 2 diabetes mellitus with diabetic polyneuropathy, with long-term current use of insulin (HCC) [facility]* Diagnosis Gastroparesis- Primary Chronic idiopathic constipation Unspecified constipation [facility]* Diagnosis Spasticity- Primary Abnormal involuntary movements [facility] Diagnosis Spasticity Abnormal involuntary movements Balance disorder Other symptoms involving nervous and musculoskeletal systems Bladder dysfunction Other functional disorder of bladder Spinal stenosis of cervical region Spinal stenosis in cervical region [facility] Diagnosis Chronic bilateral low back pain with left-sided sciatica Bladder dysfunction Other functional disorder of bladder Spinal stenosis of lumbar region with neurogenic claudication Spinal stenosis, lumbar region, with neurogenic claudication [facility] Diagnosis Dizzy Dizziness and giddiness [facility]* Diagnosis Balance disorder- Primary Other symptoms involving nervous and musculoskeletal systems Spasticity Abnormal involuntary movements Bladder dysfunction Other functional disorder of bladder Spinal stenosis in cervical region [facility] [place] [facility] Diagnosis Balance disorder Other symptoms involving nervous and musculoskeletal systems Spasticity Abnormal involuntary movements Bladder dysfunction Other functional disorder of bladder [facility]* Diagnosis Type 2 diabetes mellitus with diabetic polyneuropathy, with long-term current use of insulin (HCC)- Primary Essential hypertension Unspecified essential hypertension Pure hypercholesterolemia BPPV (benign paroxysmal positional vertigo), unspecified laterality Vitamin D deficiency Unspecified vitamin D deficiency COVID-19 [facility] Encounter for vitamin deficiency screening Screening for other and unspecified endocrine, nutritional, metabolic, and immunity disorders Screening for colon cancer Special screening for malignant neoplasms, colon [facility]* Diagnosis Left lumbar radiculopathy Thoracic or lumbosacral neuritis or radiculitis, unspecified [facility] [place] [facility]* Diagnosis Balance disorder Other symptoms involving nervous and musculoskeletal systems Spasticity Abnormal involuntary movements Spinal stenosis in cervical region [facility]* Diagnosis Lumbar radiculopathy- Primary Thoracic or lumbosacral neuritis or radiculitis, unspecified [facility] [place] [facility]* Diagnosis Midline low back pain with sciatica, sciatica laterality unspecified, unspecified chronicity- Primary [facility]* Diagnosis Spasticity Abnormal involuntary movements Lumbosacral neuritis Thoracic or lumbosacral neuritis or radiculitis, unspecified [facility] Diagnosis Trigger ring finger of left hand- Primary Trigger finger (acquired) Lumbosacral neuritis Thoracic or lumbosacral neuritis or radiculitis, unspecified [facility] [place] [facility]* Diagnosis Trigger ring finger of left hand- Primary Trigger finger (acquired) Trigger ring finger of left hand Trigger finger (acquired) Lumbosacral neuritis Thoracic or lumbosacral neuritis or radiculitis, unspecified [facility] Diagnosis Dizzy Dizziness and giddiness Trigger ring finger of left hand Trigger finger (acquired) Lumbosacral neuritis Thoracic or lumbosacral neuritis or radiculitis, unspecified [facility] Diagnosis Preoperative examination- Primary Preoperative examination, unspecified Trigger ring finger of left hand Trigger finger (acquired) Type 1 diabetes mellitus without complication ([facility]) Type I (juvenile type) diabetes mellitus without mention of complication, not stated as uncontrolled BPPV (benign paroxysmal positional vertigo), unspecified laterality Concussion without loss of consciousness, subsequent encounter Type 2 diabetes mellitus with diabetic polyneuropathy, with long-term current use of insulin ([facility]) Essential hypertension Unspecified essential hypertension Pure hypercholesterolemia Mild intermittent asthma without complication Unspecified asthma Former smoker Personal history of tobacco use, presenting hazards to health Irritable bowel syndrome, unspecified type Gastroesophageal reflux disease, unspecified whether esophagitis present Gastroparesis Elevated factor VIII level Depression, unspecified depression type Obesity, Class III, BMI 40-49.9 (morbid obesity) ([facility]) Morbid obesity Difficult airway for intubation, subsequent encounter Trigger ring finger of left hand Trigger finger (acquired) Lumbosacral neuritis Thoracic or lumbosacral neuritis or radiculitis, unspecified [facility] Diagnosis Balance disorder Other symptoms involving nervous and musculoskeletal systems Lumbosacral neuritis Thoracic or lumbosacral neuritis or radiculitis, unspecified [facility] Diagnosis Shortness of breath Lumbosacral neuritis Thoracic or lumbosacral neuritis or radiculitis, unspecified [facility] Diagnosis Tension headache- Primary Pain in left hip Pain in joint, pelvic region and thigh Lumbosacral neuritis Thoracic or lumbosacral neuritis or radiculitis, unspecified [facility] Diagnosis Spasticity Abnormal involuntary movements Lumbosacral neuritis Thoracic or lumbosacral neuritis or radiculitis, unspecified [facility] [place] [facility]* Diagnosis 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 [facility] Diagnosis Elevated factor VIII level- Primary documented in this encounter [facility] for referral (narrative)* Diagnostic Procedure Only (Routine) - Closed Specialty Diagnoses / Procedures Referred By Contac t Referred To Contact XR IMAGING Diagnoses Acute pain of right shoulder Procedures XR SHOULDER GENERAL 3V OR MORE AP/TRUE AP/OTHER RIGHT RADEX SHOULDER COMPLETE MINIMUM 2 VIEWS Julia Daniels APRN.CNP [address] [place] [address] Xr Imaging Referral ID Status Reason Start Date Expiration Date V isits Requested Visits Authorized [id number] Closed Auto-Generate d Referral 06/24/2021 07/24/2022 1 1 [facility] for referral (narrative)* - Pending Review Specialty Diagnoses / Procedures Referred By Contac t Referred To Contact Diagnoses Neck strain, subsequent encounter Procedures CONSULT TO PHYSICAL THERAPY Miguelito Lees PA-C [address] [place] [address] Referral ID Status Reason Start Date Expiration Date V isits Requested Visits Authorized [id number] Pending Review 08/10/2021 11/08/2021 1 1 [facility] for referral (narrative)* Diagnostic Procedure Only (Routine) - Pending Review Specialty Diagnoses / Procedures Referred By Contac t Referred To Contact BR IMAGING Diagnoses Encounter for screening mammogram for breast cancer Procedures SERJIO SCREENING SCREENING MAMMOGRAPHY BI 2-VIEW BREAST INC CAD Yifan Blum DO [address] [place] [address] Br Imaging [address] [place] [address] Referral ID Status Reason Start Date Expiration Date Visits Requested Visits Authorized [id number] Pending Review Auto-Generat ed Referral 08/09/2021 09/08/2022 1 1 [facility] for referral (narrative)* Diagnostic Procedure Only (Urgent) - Closed Specialty Diagnoses / Procedures Referred By Contac t Referred To Contact XR IMAGING Diagnoses Right wrist injury, initial encounter Procedures XR WRIST INJURY 4V PA/LAT/OBL/SCAPH RIGHT RADEX WRIST COMPLETE MINIMUM 3 VIEWS Stella Mazariegos PA-C [address] [place] [address] Xr Imaging Referral ID Status Reason Start Date Expiration Date V isits Requested Visits Authorized [id number] Closed Auto-Generate d Referral 10/18/2021 11/17/2022 1 1 * Diagnostic Procedure Only (Urgent) - Closed Specialty Diagnoses / Procedures Referred By Contac t Referred To Contact XR IMAGING Diagnoses Left knee injury, initial encounter Procedures XR KNEE GENERAL 4V AP BOTH/PA BOTH/LAT/MERC LEFT RADIOLOGIC EXAM KNEE COMPLETE 4/MORE VIEWS Stella Mazariegos PA-C [address] [place] [address] Xr Imaging Referral ID Status Reason Start Date Expiration Date V isits Requested Visits Authorized [id number] Closed Auto-Generate d Referral 10/18/2021 11/17/2022 1 1 [facility] for referral (narrative)* Outpatient Procedure (Routine) - Authorized Specialty Diagnoses / Procedures Referred By Contac t Referred To Contact [facility] Diagnoses Dizziness Procedures US CAROTID ARTERIES [facility] DUPLEX SCAN EXTRACRANIAL ART COMPL BI STUDY Carmen Gamez APRN.DOUGHNUT ICER [address] [place] [address] [facility] [place] [address] [place] [address] Referral ID Status Reason Start Date Expiration Date Visits Requested Visits Authorized [id number] Authorized Auto-Generat ed Referral 01/10/2023 1 1 * Outpatient Procedure (Routine) - Additional Clinical Info Needed Specialty Diagnoses / Procedures Referred By Contac t Referred To Contact [facility] Diagnoses Dizziness Procedures ECHO ECHO TTHRC R-T 2D W/WOM-MODE COMPL SPEC&COLR D Carmen Gamez APRN.DOUGHNUT ICER [address] [place] [address] [facility] [address] [place] [address] Referral ID Status Reason Start Date Expiration Date Visits Requested Visits Authorized [id number] Additional Clinical Info Needed Auto-Generat ed Referral 2 01/10/2023 1 1 * Outpatient Procedure (Routine) - Closed Specialty Diagnoses / Procedures Referred By Hanyroshan dev Referred To Contact [facility] Diagnoses Dizziness Procedures ECG COMPLETE ECG ROUTINE ECG W/LEAST 12 LDS W/I&R Carmen Gamez APRN.DOUGHNUT ICER [address] [place] [address] [address] Referral ID Status Reason Start Date Expiration Date V isits Requested Visits Authorized [id number] Closed Auto-Generate d Referral 01/10/2022 01/10/2023 1 1 [facility] Outpatient Procedure (Routine) - Pending Peer to Peer Review Specialty Diagnoses / Procedures Referred By Altagracia dev Referred To Contact [facility] Diagnoses Trace mitral valve regurgitation Dizziness Procedures ECHO ECHO TTHRC R-T 2D W/WOM-MODE COMPL SPEC&COLR D Carmen Gamez APRN.DOUGHNUT ICER [address] [place] [address] [address] Referral ID Status Reason Start Date Expiration Date Visits Requested Visits Authorized [id number] Pending Peer to Peer Review Auto-Generat ed Referral 2 04/02/2022 1 1 [facility] for referral (narrative)* Outpatient Procedure (Routine) - Authorized Specialty Diagnoses / Procedures Referred By Contac t Referred To Contact [facility] Diagnoses COVID-19 long hauler Subacute cough Procedures LUNG VOLUMES Yifan Blum, DO [address] [place] [address] [facility] [place] [address] [place] [address] Referral ID Status Reason Start Date Expiration Date Visits Requested Visits Authorized [id number] Authorized Auto-Generat ed Referral 03/27/2022 02/10/2023 1 1 * Outpatient Procedure (Routine) - Authorized Specialty Diagnoses / Procedures Referred By Contac t Referred To Contact [facility] Diagnoses COVID-19 long hauler Subacute cough Procedures SPIROMETRY - BASELINE AND POST DILATOR BRNCDILAT RSPSE SPMTRY PRE&POST-BRNCDILAT ADMN Yifan Blum, DO [address] [place] [address] [address] Referral ID Status Reason Start Date Expiration Date Visits Requested Visits Authorized [id number] Authorized Auto-Generat ed Referral 03/27/2022 02/10/2023 1 1 * Physical Therapy (Routine) - Pending Review Specialty Diagnoses / Procedures Referred By Contac t Referred To Contact [facility] Diagnoses BPPV (benign paroxysmal positional vertigo), unspecified laterality COVID-19 long sandrauler Procedures CONSULT TO PHYSICAL THERAPY PHYSICAL THERAPY EVALUATION HIGH COMPLEX 45 MINS Yifan Blum, DO [address] [place] [address] [facility] [address] [address] Referral ID Status Reason Start Date Expiration Date Visits Requested Visits Authorized [id number] Pending Review Auto-Generat ed Referral 03/27/2022 03/27/2023 1 1 * Medication Prior Authorization - Closed Specialty Diagnoses / Procedures Referred By Altagracia t Referred To Contact Yifan Blum DO [address] [place] [address] Referral ID Status Reason Start Date Expiration Date Visits Re quested Visits Authorized [id number] Closed 1 1 * Medication Prior Authorization - Closed Specialty Diagnoses / Procedures Referred By Altagracia t Referred To Contact Yifan Blum DO [address] [place] [address] Referral ID Status Reason Start Date Expiration Date Visits Re quested Visits Authorized [id number] Closed 1 1 [facility] for referral (narrative)* Diagnostic Procedure Only (Urgent) - Closed Specialty Diagnoses / Procedures Referred By Hanyroshan t Referred To Contact XR IMAGING Diagnoses Acute pain of left knee Procedures XR KNEE GENERAL 4V AP BOTH/PA BOTH/LAT/MERC LEFT RADIOLOGIC EXAM KNEE COMPLETE 4/MORE VIEWS Garret Arroyo MD [address] [place] [address] Xr Imaging Referral ID Status Reason Start Date Expiration Date V isits Requested Visits Authorized [id number] Closed Auto-Generate d Referral 06/27/2022 07/27/2023 1 1 [facility] for referral (narrative)* Outpatient Procedure (Routine) - Pending Review Specialty Diagnoses / Procedures Referred By Hanyroshan t Referred To Contact [facility] Diagnoses Gastroparesis Chronic idiopathic constipation Procedures CAPSULE ENDOSCOPY Jeanna Guallpa DO [facility] [address] [place] [address] [facility] [place] [address] [place] [address] Referral ID Status Reason Start Date Expiration Date Visits Requested Visits Authorized [id number] Pending Review Auto-Generat ed Referral 08/02/2022 08/03/2023 1 1 [facility] for referral (narrative)* - Authorized Specialty Diagnoses / Procedures Referred By Contac t Referred To Contact Diagnoses Balance disorder Spasticity Spinal stenosis in cervical region Procedures [place]SULT [place] [address] [place] [address] Referral ID Status Reason Start Date Expiration Date V isits Requested Visits Authorized [id number] Authorized 10/05/2022 01/03/2023 1 1 * MRI/CT (Routine) - Additional Clinical Info Needed Specialty Diagnoses / Procedures Referred By Contac t Referred To Contact MR IMAGING Diagnoses Balance disorder Spasticity Bladder dysfunction Procedures MRI THORACIC SPINE WO IVCON MRI SPINAL CANAL THORACIC W/[place] [address] [place] [address] Mr Imaging [facility] Referral ID Status Reason Start Date Expiration Date Visits Requested Visits Authorized [id number] Additional Clinical Info Needed Auto-Generat ed Referral 10/05/2022 11/04/2023 1 1 [facility] for referral (narrative)* Outpatient Procedure (Routine) - Pending Review Specialty Diagnoses / Procedures Referred By Contac t Referred To Contact [facility] Diagnoses Screening for colon cancer Procedures COLONOSCOPY SCREENING COLONOSCOPY FLX DX W/COLLJ SPEC WHEN PFRMD Lizet Eugene APRN.DOUGHNUT ICER [address] [place] [address] [facility] [place] [address] [place] [address] Referral ID Status Reason Start Date Expiration Date Visits Requested Visits Authorized [id number] Pending Review Auto-Generat ed Referral 10/29/2022 10/30/2023 1 1 [facility] Diagnostic Procedure Only (Routine) - Pending Review Specialty Diagnoses / Procedures Referred By Controshan t Referred To Contact XR IMAGING Diagnoses Pain in left hip Procedures XR HIP GENERAL 3V PELV/AP/LAT LEFT RADEX HIP UNILATERAL WITH PELVIS 2-[place] [address] [address] [address] [place] [address] Xr Imaging [place] [address] Referral ID Status Reason Start Date Expiration Date Visits Requested Visits Authorized [id number] Pending Review Auto-Generat ed Referral 12/20/2022 01/19/2024 1 1 * Consult, Test, Treat (Routine) - Authorized Specialty Diagnoses / Procedures Referred By Altagracia méndez Referred To Contact Neurology Diagnoses Tension headache Procedures CONSULT TO NEUROLOGY OFFICE/OUTPATIENT [facility] MDM 60-[place] [address] [address] [place] [address] Referral ID Status Reason Start Date Expiration Date Visits Requested Visits Authorized [id number] Authorized PCP Requested Referral 12/20/2022 12/20/2023 1 1 [facility] Summary Purpose Family History No Family History Records FoundNo Family History Records FoundNo Family History Records FoundNo Family History Records FoundNo Family History Records FoundNo Family History Records Found Advance Directives No Advanced Directives Records FoundDocuments on File Type Date Recorded Patient Channel Marketing Manager Expl anation Advance Directive(s) 02/01/2021 6:53 AM Advance Directive(s) 01/24/2021 8:48 AM Advance Directive(s) 07/13/2020 5:22 PM Advance Directive(s) 12/04/2019 12:44 PM Advance Directive(s) 11/24/2019 6:10 PM Advance Directive(s) 12/26/2018 11:35 AM Advance Directive(s) 12/25/2018 9:55 AM Advance Directive(s) 11/10/2018 2:21 PM Advance Directive(s) 12/20/2017 10:20 AM Advance Directive(s) 08/03/2016 6:09 AM Advance Directive(s) 07/23/2016 8:03 AM Documents on File Type Date Recorded Patient Channel Marketing Manager Expl anation Advance Directive(s) 02/01/2021 6:53 AM Advance Directive(s) 01/24/2021 8:48 AM Advance Directive(s) 07/13/2020 5:22 PM Advance Directive(s) 12/04/2019 12:44 PM Advance Directive(s) 11/24/2019 6:10 PM Advance Directive(s) 12/26/2018 11:35 AM Advance Directive(s) 12/25/2018 9:55 AM Advance Directive(s) 11/10/2018 2:21 PM Advance Directive(s) 12/20/2017 10:20 AM Advance Directive(s) 08/03/2016 6:09 AM Advance Directive(s) 07/23/2016 8:03 AM Documents on File Type Date Recorded Patient Channel Marketing Manager Expl anation Advance Directive(s) 05/16/2021 10:53 AM Advance Directive(s) 02/01/2021 6:53 AM Advance Directive(s) 01/24/2021 8:48 AM Advance Directive(s) 07/13/2020 5:22 PM Advance Directive(s) 12/04/2019 12:44 PM Advance Directive(s) 11/24/2019 6:10 PM Advance Directive(s) 12/26/2018 11:35 AM Advance Directive(s) 12/25/2018 9:55 AM Advance Directive(s) 11/10/2018 2:21 PM Advance Directive(s) 12/20/2017 10:20 AM Advance Directive(s) 08/03/2016 6:09 AM Advance Directive(s) 07/23/2016 8:03 AM Documents on File Type Date Recorded Patient Channel Marketing Manager Expl anation Advance Directive(s) 05/19/2021 10:46 AM Advance Directive(s) 05/16/2021 10:53 AM Advance Directive(s) 02/01/2021 6:53 AM Advance Directive(s) 01/24/2021 8:48 AM Advance Directive(s) 07/13/2020 5:22 PM Advance Directive(s) 12/04/2019 12:44 PM Advance Directive(s) 11/24/2019 6:10 PM Advance Directive(s) 12/26/2018 11:35 AM Advance Directive(s) 12/25/2018 9:55 AM Advance Directive(s) 11/10/2018 2:21 PM Advance Directive(s) 12/20/2017 10:20 AM Advance Directive(s) 08/03/2016 6:09 AM Advance Directive(s) 07/23/2016 8:03 AM Documents on File Type Date Recorded Patient Channel Marketing Manager Expl anation Advance Directive(s) 05/19/2021 10:46 AM Advance Directive(s) 05/16/2021 10:53 AM Advance Directive(s) 02/01/2021 6:53 AM Advance Directive(s) 01/24/2021 8:48 AM Advance Directive(s) 07/13/2020 5:22 PM Advance Directive(s) 12/04/2019 12:44 PM Advance Directive(s) 11/24/2019 6:10 PM Advance Directive(s) 12/26/2018 11:35 AM Advance Directive(s) 12/25/2018 9:55 AM Advance Directive(s) 11/10/2018 2:21 PM Advance Directive(s) 12/20/2017 10:20 AM Advance Directive(s) 08/03/2016 6:09 AM Advance Directive(s) 07/23/2016 8:03 AM Documents on File Type Date Recorded Patient Channel Marketing Manager Expl anation Advance Directive(s) 12/25/2018 9:55 AM Documents on File Type Date Recorded Patient Channel Marketing Manager Expl anation Advance Directive(s) 12/25/2018 9:55 AM Reason for Referral Specialty Diagnoses / Procedures Referred By Altagracia méndez Referred To Contact MR IMAGING Diagnoses Mass of right wrist Procedures MRI WRIST WO IVCON RT MRI, JOINT UPPER EXTREM Chet Malik PA-C [address] [place] [address] Mr Imaging Referral ID Status Reason Start Date Expiration Date V isits Requested Visits Authorized [id number] Closed Auto-Generate d Referral 12/28/2020 01/27/2022 1 1 Specialty Diagnoses / Procedures Referred By Altagracia méndez Referred To Contact [facility] Diagnoses Upper back pain Procedures CONSULT TO PAIN MGT OFFICE/OUTPATIENT [facility] MDM 60-74 MINUTES Yifan Blum, DO [address] [place] [address] Anesthesia [place] [address] [place], [place] [id number] Referral ID Status Reason Start Date Expiration Date Visits Requested Visits Authorized [id number] Authorized PCP Requested Referral 08/11/2021 08/11/2022 1 1 Specialty Diagnoses / Procedures Referred By Contac t Referred To Contact [facility] Diagnoses Chronic bilateral low back pain with left-sided sciatica Myofascial pain Sacroiliac joint dysfunction of both sides Procedures CONSULT TO PHYSICAL THERAPY PHYSICAL THERAPY EVALUATION HIGH COMPLEX 45 MINS Magalie Hermosillo MD [facility] [address] [place] [address] [facility] [address] [address] Referral ID Status Reason Start Date Expiration Date Visits Requested Visits Authorized [id number] Pending Review Auto-Generat ed Referral 09/08/2021 09/08/2022 1 1 Specialty Diagnoses / Procedures Referred By Contac t Referred To Contact XR IMAGING Diagnoses 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 Procedures XR LUMBAR MOTION 4V AP/LAT/ FLEX/EXT RADEX SPINE LUMBOSACRAL MINIMUM 4 VIEWS Magalie Hermosillo MD [facility] [address] [place] [address] Xr Imaging Referral ID Status Reason Start Date Expiration Date Visits Requested Visits Authorized [id number] Pending Review Auto-Generat ed Referral 09/08/2021 10/08/2022 1 1 Specialty Diagnoses / Procedures Referred By Contac t Referred To Contact XR IMAGING Diagnoses Chronic bilateral low back pain with left-sided sciatica Procedures XR SACRUM/COCCYX 3V AP/LAT RADEX SACRUM & COCCYX MINIMUM 2 VIEWS Magalie Hermosillo MD [facility] [address] [place] [id number] Xr Imaging Referral ID Status Reason Start Date Expiration Date Visits Requested Visits Authorized [id number] Pending Review Auto-Generat ed Referral 09/08/2021 10/08/2022 1 1 Specialty Diagnoses / Procedures Referred By Contac t Referred To Contact Diagnoses COVID-19 Procedures COVID TREATMENT REFERRAL COVID TREATMENT REFERRAL Carmen Gamez APRN.DOUGHNUT ICER [address] [place] [address] Referral ID Status Reason Start Date Expiration Date Visits Requested Visits Authorized [id number] Pending Review Auto-Generat ed Referral 11/13/2021 11/13/2022 1 1 Specialty Diagnoses / Procedures Referred By Contac t Referred To Contact [facility] Diagnoses Tear of medial meniscus of left knee, current, unspecified tear type, initial encounter Procedures CONSULT TO PHYSICAL THERAPY PHYSICAL THERAPY EVALUATION HIGH COMPLEX [address] [place] [address] [place] [address] [facility] [place] [address] [place] [address] Referral ID Status Reason Start Date Expiration Date Visits Requested Visits Authorized [id number] Authorized Auto-Generat ed Referral 02/10/2022 1 1 Specialty Diagnoses / Procedures Referred By Contac t Referred To Contact [facility] Diagnoses Tear of medial meniscus of left knee, current, unspecified tear type, initial encounter Procedures PT REHAB FOLLOW UP ORDER THERAPEUTIC EXERCISES RE, EA 15 MIN. Darlyn'Chayito Turk, PT [facility] [place] [address] [place] [address] Referral ID Status Reason Start Date Expiration Date Visits Requested Visits Authorized [id number] Pending Review PCP Requested Referral Auto-Generate d Referral 12/12/2021 03/12/2022 1 1 Specialty Diagnoses / Procedures Referred By Contac t Referred To Contact MR IMAGING Diagnoses Acute pain of left knee Procedures MRI KNEE WO IVCON LT MRI ANY JT LOWER EXTREM W/O CONTRAST BETHL Chet Malik PA-C [address] [place] [address] Mr Imaging Referral ID Status Reason Start Date Expiration Date V isits Requested Visits Authorized [id number] Closed Auto-Generate d Referral 12/28/2021 02/26/2022 1 1 Specialty Diagnoses / Procedures Referred By Contac t Referred To Contact [facility] Diagnoses BPPV (benign paroxysmal positional vertigo), unspecified laterality COVID-19 long hauler Procedures PT REHAB FOLLOW UP ORDER THERAPEUTIC EXERCISES RE, EA 15 MIN. Pt [facility] [address] [place] [address] [facility] [address] [address] Referral ID Status Reason Start Date Expiration Date Visits Requested Visits Authorized [id number] Pending Review PCP Requested Referral Auto-Generate d Referral 04/02/2022 07/01/2022 1 1 Specialty Diagnoses / Procedures Referred By Contac t Referred To Contact [facility] Diagnoses Chronic bilateral low back pain with left-sided sciatica Procedures CONSULT TO PHYSICAL THERAPY PHYSICAL THERAPY [facility] 45 MINS Veronica Melo, LANDY.DOUGHNUT ICER [address] [place] [address] [facility] [address] [address] Referral ID Status Reason Start Date Expiration Date Visits Requested Visits Authorized [id number] Pending Review Auto-Generat ed Referral 07/19/2022 07/19/2023 1 1 Specialty Diagnoses / Procedures Referred By Contac t Referred To Contact Spine [place] Diagnoses Chronic bilateral low back pain with left-sided sciatica Procedures CONSULT TO SPINE [facility] OFFICE/OUTPATIENT [facility] 60-74 MINUTES Veronica Melo, PANTOGRAPH ENGRAVER.DOUGHNUT ICER [address] [place] [address] Referral ID Status Reason Start Date Expiration Date Visits Requested Visits Authorized [id number] Authorized PCP Requested Referral 07/19/2022 07/19/2023 1 1 Specialty Diagnoses / Procedures Referred By Contac t Referred To Contact MR IMAGING Diagnoses Balance disorder Procedures MRA BRAIN WO IVCON MRA, HEAD [place] [address] [address] [place] [address] [place] [address] Referral ID Status Reason Start Date Expiration Date Visits Requested Visits Authorized [id number] Pending Review Auto-Generat ed Referral 11/09/2022 12/09/2023 1 1 Specialty Diagnoses / Procedures Referred By Contac t Referred To Contact MR IMAGING Diagnoses Balance disorder Procedures MRA CAROTID WO IVCON MRA, NECK; W/[place] [address] [address] [place] [id number] Mr Imaging [place] [address] Referral ID Status Reason Start Date Expiration Date Visits Requested Visits Authorized [id number] Pending Review Auto-Generat ed Referral 11/09/2022 12/09/2023 1 1 Specialty Diagnoses / Procedures Referred By Contac t Referred To Contact MR IMAGING Diagnoses Balance disorder Procedures MRI BRAIN WO IVCON MRI BRAIN BRAIN STEM W/[place] [address] [address] [place] [id number] Mr Imaging [place] [address] Referral ID Status Reason Start Date Expiration Date Visits Requested Visits Authorized [id number] Pending Review Auto-Generat ed Referral 11/09/2022 12/09/2023 1 1 Specialty Diagnoses / Procedures Referred By Contac t Referred To Contact Pain Management Diagnoses Midline low back pain with sciatica, sciatica laterality unspecified, unspecified chronicity Procedures CONSULT TO PAIN MGT OFFICE/OUTPATIENT NEW HIGH MDM 60-74 MINUTES Jana Diana PA-C [address] [facility] [place] [place] [address] Referral ID Status Reason Start Date Expiration Date Visits Requested Visits Authorized [id number] Authorized PCP Requested Referral 11/12/2022 11/12/2023 1 1 Referral ID Status Reason Start Date Expiration Date V isits Requested Visits Authorized [id number] Closed Auto-Generate d Referral 11/28/2022 01/27/2023 1 1 Referral ID Status Reason Start Date Expiration Date V isits Requested Visits Authorized [id number] Closed Auto-Generate d Referral 11/26/2022 01/25/2023 1 1 Specialty Diagnoses / Procedures Referred By Contac t Referred To Contact MOLECULAR & FUNCTIONAL IMAGING Diagnoses Shortness of breath Procedures NM CARDIAC PERF STRESS/EXERCISE MYOCARDIAL IMAGING, MULTIPLE Earnestine Helton, PANTOGRAPH ENGRAVER.DOUGHNUT ICER [address] [place] [address] [facility] Functional [facility] [address] [place], [place] [id number] Referral ID Status Reason Start Date Expiration Date V isits Requested Visits Authorized [id number] Closed PCP Requested Referral 03/15/2020 05/14/2020 3 3 Specialty Diagnoses / Procedures Referred By Contac t Referred To Contact Hematology Diagnoses Elevated factor VIII level Procedures CONSULT TO HEMATOLOGY OFFICE/OUTPATIENT [facility] 60-74 MINUTES Yifan Blum, DO [address] [place] [address] Referral ID Status Reason Start Date Expiration Date Visits Requested Visits Authorized [id number] Authorized PCP Requested Referral 01/23/2024 1 1 Health Concerns Infection Onset Date Last Indicated Resolved Time COVID-19 Confirmed 11/09/2021 11/09/2021 Infection Onset Date Last Indicated Resolved Time COVID-19 Confirmed 11/09/2021 11/09/2021 Infection Onset Date Last Indicated Resolved Time COVID-19 Rule-Out 04/10/2022 04/10/2022 Infection Onset Date Last Indicated Resolved Time COVID-19 Rule-Out 04/10/2022 04/10/2022 04/11/2022 4:31 AM EST Medications Administered Section Inactive Administered Medications - up to 3 most recent administrations Medication Order MAR Action Action Date Dose Rate Site bebtelovimab 175 mg injection 175 mg, INTRAVENOUS, ONCE (UP TO 30 DAYS AMB), 1 dose, On Sat11/14/21 at 1330, Administer over 30 seconds. Flush line with NS after administration Refrigerate - Protect from Light. Observe patient for at least 1 hour after injection administered., Prior to the patient receiving bebtelovimab, patient has been given the Fact Sheet for Patients and Parents/Caregivers. Yes, Prior to the patient receiving bebtelovimab, patient has been informed of alternatives to receiving bebtelovimab. Yes, Prior to the patient receiving bebtelovimab, patient has been informed that bebtelovimab is an unapproved drug that is authorized for use under EUA. Yes, Prior to the patient receiving bebtelovimab, patient has been advised to continue self-isolation and infection control measures according to CDC guidelines. Yes, AMB MED ORDERS Given 11/14/2021 1:48 PM EDT 175 mg Hand, Left Additional Source Comments INFORMATION SOURCE (unrecogn ized section and content) DATE CREATED AUTHOR AUTHOR'S ORGANIZ ATION 11/15/2021 [facility] DATE CREATED AUTHOR AUTHOR'S ORGANIZ ATION 12/13/2022 [facility] DATE CREATED AUTHOR AUTHOR'S ORGANIZ ATION 12/15/2022 [facility] DATE CREATED AUTHOR AUTHOR'S ORGANIZ ATION 01/17/2023 [facility] DATE CREATED AUTHOR AUTHOR'S ORGANIZ ATION 02/02/2023 [facility] Source Comments (unrecognize d section and content) In the event this informatio n is protected by the Federal Confidentiality of Alcohol and Drug Abuse Patient Records regulations: The Federal rules restrict any use of the information to criminally investigate or prosecute any alcohol or drug abuse patient.[facility] the event this information is protected by the Federal Confidentiality of Alcohol and Drug Abuse Patient Records regulations: The Federal rules restrict any use of the information to criminally investigate or prosecute any alcohol or drug abuse patient.[facility]In the event this information is protected by the Federal Confidentiality of Alcohol and Drug Abuse Patient Records regulations: The Federal rules restrict any use of the information to criminally investigate or prosecute any alcohol or drug abuse patient.[facility]In the event this information is protected by the Federal Confidentiality of Alcohol and Drug Abuse Patient Records regulations: The Federal rules restrict any use of the information to criminally investigate or prosecute any alcohol or drug abuse patient.[facility]In the event this information is protected by the Federal Confidentiality of Alcohol and Drug Abuse Patient Records regulations: The Federal rules restrict any use of the information to criminally investigate or prosecute any alcohol or drug abuse patient.[facility]In the event this information is protected by the Federal Confidentiality of Alcohol and Drug Abuse Patient Records regulations: The Federal rules restrict any use of the information to criminally investigate or prosecute any alcohol or drug abuse patient.[facility] HospitalIn the event this information is protected by the Federal Confidentiality of Alcohol and Drug Abuse Patient Records regulations: The Federal rules restrict any use of the information to criminally investigate or prosecute any alcohol or drug abuse patient.[facility]In the event this information is protected by the Federal Confidentiality of Alcohol and Drug Abuse Patient Records regulations: The Federal rules restrict any use of the information to criminally investigate or prosecute any alcohol or drug abuse patient.[facility]In the event this information is protected by the Federal Confidentiality of Alcohol and Drug Abuse Patient Records regulations: The Federal rules restrict any use of the information to criminally investigate or prosecute any alcohol or drug abuse patient.[facility] HospitalIn the event this information is protected by the Federal Confidentiality of Alcohol and Drug Abuse Patient Records regulations: The Federal rules restrict any use of the information to criminally investigate or prosecute any alcohol or drug abuse patient.[facility] HospitalIn the event this information is protected by the Federal Confidentiality of Alcohol and Drug Abuse Patient Records regulations: The Federal rules restrict any use of the information to criminally investigate or prosecute any alcohol or drug abuse patient.[facility] HospitalIn the event this information is protected by the Federal Confidentiality of Alcohol and Drug Abuse Patient Records regulations: The Federal rules restrict any use of the information to criminally investigate or prosecute any alcohol or drug abuse patient.[facility] HospitalIn the event this information is protected by the Federal Confidentiality of Alcohol and Drug Abuse Patient Records regulations: The Federal rules restrict any use of the information to criminally investigate or prosecute any alcohol or drug abuse patient.[facility] HospitalIn the event this information is protected by the Federal Confidentiality of Alcohol and Drug Abuse Patient Records regulations: The Federal rules restrict any use of the information to criminally investigate or prosecute any alcohol or drug abuse patient.[facility] HospitalIn the event this information is protected by the Federal Confidentiality of Alcohol and Drug Abuse Patient Records regulations: The Federal rules restrict any use of the information to criminally investigate or prosecute any alcohol or drug abuse patient.[facility] HospitalIn the event this information is protected by the Federal Confidentiality of Alcohol and Drug Abuse Patient Records regulations: The Federal rules restrict any use of the information to criminally investigate or prosecute any alcohol or drug abuse patient.[facility] HospitalIn the event this information is protected by the Federal Confidentiality of Alcohol and Drug Abuse Patient Records regulations: The Federal rules restrict any use of the information to criminally investigate or prosecute any alcohol or drug abuse patient.[facility] HospitalIn the event this information is protected by the Federal Confidentiality of Alcohol and Drug Abuse Patient Records regulations: The Federal rules restrict any use of the information to criminally investigate or prosecute any alcohol or drug abuse patient.[facility] HospitalIn the event this information is protected by the Federal Confidentiality of Alcohol and Drug Abuse Patient Records regulations: The Federal rules restrict any use of the information to criminally investigate or prosecute any alcohol or drug abuse patient.[facility] HospitalIn the event this information is protected by the Federal Confidentiality of Alcohol and Drug Abuse Patient Records regulations: The Federal rules restrict any use of the information to criminally investigate or prosecute any alcohol or drug abuse patient.[facility] HospitalIn the event this information is protected by the Federal Confidentiality of Alcohol and Drug Abuse Patient Records regulations: The Federal rules restrict any use of the information to criminally investigate or prosecute any alcohol or drug abuse patient.[facility] HospitalIn the event this information is protected by the Federal Confidentiality of Alcohol and Drug Abuse Patient Records regulations: The Federal rules restrict any use of the information to criminally investigate or prosecute any alcohol or drug abuse patient.[facility] HospitalIn the event this information is protected by the Federal Confidentiality of Alcohol and Drug Abuse Patient Records regulations: The Federal rules restrict any use of the information to criminally investigate or prosecute any alcohol or drug abuse patient.[facility] HospitalIn the event this information is protected by the Federal Confidentiality of Alcohol and Drug Abuse Patient Records regulations: The Federal rules restrict any use of the information to criminally investigate or prosecute any alcohol or drug abuse patient.[facility] HospitalIn the event this information is protected by the Federal Confidentiality of Alcohol and Drug Abuse Patient Records regulations: The Federal rules restrict any use of the information to criminally investigate or prosecute any alcohol or drug abuse patient.[facility] HospitalIn the event this information is protected by the Federal Confidentiality of Alcohol and Drug Abuse Patient Records regulations: The Federal rules restrict any use of the information to criminally investigate or prosecute any alcohol or drug abuse patient.[facility] HospitalIn the event this information is protected by the Federal Confidentiality of Alcohol and Drug Abuse Patient Records regulations: The Federal rules restrict any use of the information to criminally investigate or prosecute any alcohol or drug abuse patient.[facility] HospitalIn the event this information is protected by the Federal Confidentiality of Alcohol and Drug Abuse Patient Records regulations: The Federal rules restrict any use of the information to criminally investigate or prosecute any alcohol or drug abuse patient.[facility] HospitalIn the event this information is protected by the Federal Confidentiality of Alcohol and Drug Abuse Patient Records regulations: The Federal rules restrict any use of the information to criminally investigate or prosecute any alcohol or drug abuse patient.[facility] HospitalIn the event this information is protected by the Federal Confidentiality of Alcohol and Drug Abuse Patient Records regulations: The Federal rules restrict any use of the information to criminally investigate or prosecute any alcohol or drug abuse patient.[facility] HospitalIn the event this information is protected by the Federal Confidentiality of Alcohol and Drug Abuse Patient Records regulations: The Federal rules restrict any use of the information to criminally investigate or prosecute any alcohol or drug abuse patient.[facility] HospitalIn the event this information is protected by the Federal Confidentiality of Alcohol and Drug Abuse Patient Records regulations: The Federal rules restrict any use of the information to criminally investigate or prosecute any alcohol or drug abuse patient.[facility] HospitalIn the event this information is protected by the Federal Confidentiality of Alcohol and Drug Abuse Patient Records regulations: The Federal rules restrict any use of the information to criminally investigate or prosecute any alcohol or drug abuse patient.[facility] HospitalIn the event this information is protected by the Federal Confidentiality of Alcohol and Drug Abuse Patient Records regulations: The Federal rules restrict any use of the information to criminally investigate or prosecute any alcohol or drug abuse patient.[facility] HospitalIn the event this information is protected by the Federal Confidentiality of Alcohol and Drug Abuse Patient Records regulations: The Federal rules restrict any use of the information to criminally investigate or prosecute any alcohol or drug abuse patient.[facility] HospitalIn the event this information is protected by the Federal Confidentiality of Alcohol and Drug Abuse Patient Records regulations: The Federal rules restrict any use of the information to criminally investigate or prosecute any alcohol or drug abuse patient.[facility] HospitalIn the event this information is protected by the Federal Confidentiality of Alcohol and Drug Abuse Patient Records regulations: The Federal rules restrict any use of the information to criminally investigate or prosecute any alcohol or drug abuse patient.[facility] HospitalIn the event this information is protected by the Federal Confidentiality of Alcohol and Drug Abuse Patient Records regulations: The Federal rules restrict any use of the information to criminally investigate or prosecute any alcohol or drug abuse patient.[facility] HospitalIn the event this information is protected by the Federal Confidentiality of Alcohol and Drug Abuse Patient Records regulations: The Federal rules restrict any use of the information to criminally investigate or prosecute any alcohol or drug abuse patient.[facility] HospitalIn the event this information is protected by the Federal Confidentiality of Alcohol and Drug Abuse Patient Records regulations: The Federal rules restrict any use of the information to criminally investigate or prosecute any alcohol or drug abuse patient.[facility] HospitalIn the event this information is protected by the Federal Confidentiality of Alcohol and Drug Abuse Patient Records regulations: The Federal rules restrict any use of the information to criminally investigate or prosecute any alcohol or drug abuse patient.[facility] HospitalIn the event this information is protected by the Federal Confidentiality of Alcohol and Drug Abuse Patient Records regulations: The Federal rules restrict any use of the information to criminally investigate or prosecute any alcohol or drug abuse patient.[facility] HospitalIn the event this information is protected by the Federal Confidentiality of Alcohol and Drug Abuse Patient Records regulations: The Federal rules restrict any use of the information to criminally investigate or prosecute any alcohol or drug abuse patient.[facility] HospitalIn the event this information is protected by the Federal Confidentiality of Alcohol and Drug Abuse Patient Records regulations: The Federal rules restrict any use of the information to criminally investigate or prosecute any alcohol or drug abuse patient.[facility] HospitalIn the event this information is protected by the Federal Confidentiality of Alcohol and Drug Abuse Patient Records regulations: The Federal rules restrict any use of the information to criminally investigate or prosecute any alcohol or drug abuse patient.[facility] HospitalIn the event this information is protected by the Federal Confidentiality of Alcohol and Drug Abuse Patient Records regulations: The Federal rules restrict any use of the information to criminally investigate or prosecute any alcohol or drug abuse patient.[facility] HospitalIn the event this information is protected by the Federal Confidentiality of Alcohol and Drug Abuse Patient Records regulations: The Federal rules restrict any use of the information to criminally investigate or prosecute any alcohol or drug abuse patient.[facility] HospitalIn the event this information is protected by the Federal Confidentiality of Alcohol and Drug Abuse Patient Records regulations: The Federal rules restrict any use of the information to criminally investigate or prosecute any alcohol or drug abuse patient.[facility] HospitalIn the event this information is protected by the Federal Confidentiality of Alcohol and Drug Abuse Patient Records regulations: The Federal rules restrict any use of the information to criminally investigate or prosecute any alcohol or drug abuse patient.[facility] HospitalIn the event this information is protected by the Federal Confidentiality of Alcohol and Drug Abuse Patient Records regulations: The Federal rules restrict any use of the information to criminally investigate or prosecute any alcohol or drug abuse patient.[facility] HospitalIn the event this information is protected by the Federal Confidentiality of Alcohol and Drug Abuse Patient Records regulations: The Federal rules restrict any use of the information to criminally investigate or prosecute any alcohol or drug abuse patient.[facility] HospitalIn the event this information is protected by the Federal Confidentiality of Alcohol and Drug Abuse Patient Records regulations: The Federal rules restrict any use of the information to criminally investigate or prosecute any alcohol or drug abuse patient.[facility] HospitalIn the event this information is protected by the Federal Confidentiality of Alcohol and Drug Abuse Patient Records regulations: The Federal rules restrict any use of the information to criminally investigate or prosecute any alcohol or drug abuse patient.[facility] HospitalIn the event this information is protected by the Federal Confidentiality of Alcohol and Drug Abuse Patient Records regulations: The Federal rules restrict any use of the information to criminally investigate or prosecute any alcohol or drug abuse patient.[facility] HospitalIn the event this information is protected by the Federal Confidentiality of Alcohol and Drug Abuse Patient Records regulations: The Federal rules restrict any use of the information to criminally investigate or prosecute any alcohol or drug abuse patient.[facility] HospitalIn the event this information is protected by the Federal Confidentiality of Alcohol and Drug Abuse Patient Records regulations: The Federal rules restrict any use of the information to criminally investigate or prosecute any alcohol or drug abuse patient.[facility] HospitalIn the event this information is protected by the Federal Confidentiality of Alcohol and Drug Abuse Patient Records regulations: The Federal rules restrict any use of the information to criminally investigate or prosecute any alcohol or drug abuse patient.[facility] HospitalIn the event this information is protected by the Federal Confidentiality of Alcohol and Drug Abuse Patient Records regulations: The Federal rules restrict any use of the information to criminally investigate or prosecute any alcohol or drug abuse patient.[facility] HospitalIn the event this information is protected by the Federal Confidentiality of Alcohol and Drug Abuse Patient Records regulations: The Federal rules restrict any use of the information to criminally investigate or prosecute any alcohol or drug abuse patient.[facility] HospitalIn the event this information is protected by the Federal Confidentiality of Alcohol and Drug Abuse Patient Records regulations: The Federal rules restrict any use of the information to criminally investigate or prosecute any alcohol or drug abuse patient.[facility] HospitalIn the event this information is protected by the Federal Confidentiality of Alcohol and Drug Abuse Patient Records regulations: The Federal rules restrict any use of the information to criminally investigate or prosecute any alcohol or drug abuse patient.[facility] HospitalIn the event this information is protected by the Federal Confidentiality of Alcohol and Drug Abuse Patient Records regulations: The Federal rules restrict any use of the information to criminally investigate or prosecute any alcohol or drug abuse patient.[facility] HospitalIn the event this information is protected by the Federal Confidentiality of Alcohol and Drug Abuse Patient Records regulations: The Federal rules restrict any use of the information to criminally investigate or prosecute any alcohol or drug abuse patient.[facility] HospitalIn the event this information is protected by the Federal Confidentiality of Alcohol and Drug Abuse Patient Records regulations: The Federal rules restrict any use of the information to criminally investigate or prosecute any alcohol or drug abuse patient.[facility] HospitalIn the event this information is protected by the Federal Confidentiality of Alcohol and Drug Abuse Patient Records regulations: The Federal rules restrict any use of the information to criminally investigate or prosecute any alcohol or drug abuse patient.[facility] HospitalIn the event this information is protected by the Federal Confidentiality of Alcohol and Drug Abuse Patient Records regulations: The Federal rules restrict any use of the information to criminally investigate or prosecute any alcohol or drug abuse patient.[facility] HospitalIn the event this information is protected by the Federal Confidentiality of Alcohol and Drug Abuse Patient Records regulations: The Federal rules restrict any use of the information to criminally investigate or prosecute any alcohol or drug abuse patient.[facility] HospitalIn the event this information is protected by the Federal Confidentiality of Alcohol and Drug Abuse Patient Records regulations: The Federal rules restrict any use of the information to criminally investigate or prosecute any alcohol or drug abuse patient.[facility] HospitalIn the event this information is protected by the Federal Confidentiality of Alcohol and Drug Abuse Patient Records regulations: The Federal rules restrict any use of the information to criminally investigate or prosecute any alcohol or drug abuse patient.[facility] HospitalIn the event this information is protected by the Federal Confidentiality of Alcohol and Drug Abuse Patient Records regulations: The Federal rules restrict any use of the information to criminally investigate or prosecute any alcohol or drug abuse patient.[facility] HospitalIn the event this information is protected by the Federal Confidentiality of Alcohol and Drug Abuse Patient Records regulations: The Federal rules restrict any use of the information to criminally investigate or prosecute any alcohol or drug abuse patient.[facility] HospitalIn the event this information is protected by the Federal Confidentiality of Alcohol and Drug Abuse Patient Records regulations: The Federal rules restrict any use of the information to criminally investigate or prosecute any alcohol or drug abuse patient.[facility] HospitalIn the event this information is protected by the Federal Confidentiality of Alcohol and Drug Abuse Patient Records regulations: The Federal rules restrict any use of the information to criminally investigate or prosecute any alcohol or drug abuse patient.[facility] HospitalIn the event this information is protected by the Federal Confidentiality of Alcohol and Drug Abuse Patient Records regulations: The Federal rules restrict any use of the information to criminally investigate or prosecute any alcohol or drug abuse patient.[facility] HospitalIn the event this information is protected by the Federal Confidentiality of Alcohol and Drug Abuse Patient Records regulations: The Federal rules restrict any use of the information to criminally investigate or prosecute any alcohol or drug abuse patient.[facility] [facility] HospitalIn the event this information is protected by the Federal Confidentiality of Alcohol and Drug Abuse Patient Records regulations: The Federal rules restrict any use of the information to criminally investigate or prosecute any alcohol or drug abuse patient.[place] [facility] HospitalIn the event this information is protected by the Federal Confidentiality of Alcohol and Drug Abuse Patient Records regulations: The Federal rules restrict any use of the information to criminally investigate or prosecute any alcohol or drug abuse patient.[place] [facility] HospitalIn the event this information is protected by the Federal Confidentiality of Alcohol and Drug Abuse Patient Records regulations: The Federal rules restrict any use of the information to criminally investigate or prosecute any alcohol or drug abuse patient.[place] [facility] HospitalIn the event this information is protected by the Federal Confidentiality of Alcohol and Drug Abuse Patient Records regulations: The Federal rules restrict any use of the information to criminally investigate or prosecute any alcohol or drug abuse patient.[facility] [facility] HospitalIn the event this information is protected by the Federal Confidentiality of Alcohol and Drug Abuse Patient Records regulations: The Federal rules restrict any use of the information to criminally investigate or prosecute any alcohol or drug abuse patient.[place] [facility] HospitalIn the event this information is protected by the Federal Confidentiality of Alcohol and Drug Abuse Patient Records regulations: The Federal rules restrict any use of the information to criminally investigate or prosecute any alcohol or drug abuse patient.[facility] [facility] HospitalIn the event this information is protected by the Federal Confidentiality of Alcohol and Drug Abuse Patient Records regulations: The Federal rules restrict any use of the information to criminally investigate or prosecute any alcohol or drug abuse patient.[facility] [facility] HospitalIn the event this information is protected by the Federal Confidentiality of Alcohol and Drug Abuse Patient Records regulations: The Federal rules restrict any use of the information to criminally investigate or prosecute any alcohol or drug abuse patient.[place] [facility] HospitalIn the event this information is protected by the Federal Confidentiality of Alcohol and Drug Abuse Patient Records regulations: The Federal rules restrict any use of the information to criminally investigate or prosecute any alcohol or drug abuse patient.[place] [facility] HospitalIn the event this information is protected by the Federal Confidentiality of Alcohol and Drug Abuse Patient Records regulations: The Federal rules restrict any use of the information to criminally investigate or prosecute any alcohol or drug abuse patient.[facility] [facility] HospitalIn the event this information is protected by the Federal Confidentiality of Alcohol and Drug Abuse Patient Records regulations: The Federal rules restrict any use of the information to criminally investigate or prosecute any alcohol or drug abuse patient.[facility] [facility] HospitalIn the event this information is protected by the Federal Confidentiality of Alcohol and Drug Abuse Patient Records regulations: The Federal rules restrict any use of the information to criminally investigate or prosecute any alcohol or drug abuse patient.[facility] [facility] HospitalIn the event this information is protected by the Federal Confidentiality of Alcohol and Drug Abuse Patient Records regulations: The Federal rules restrict any use of the information to criminally investigate or prosecute any alcohol or drug abuse patient.[facility] [facility] HospitalIn the event this information is protected by the Federal Confidentiality of Alcohol and Drug Abuse Patient Records regulations: The Federal rules restrict any use of the information to criminally investigate or prosecute any alcohol or drug abuse patient.[facility] [facility] HospitalIn the event this information is protected by the Federal Confidentiality of Alcohol and Drug Abuse Patient Records regulations: The Federal rules restrict any use of the information to criminally investigate or prosecute any alcohol or drug abuse patient.[facility] [facility] HospitalIn the event this information is protected by the Federal Confidentiality of Alcohol and Drug Abuse Patient Records regulations: The Federal rules restrict any use of the information to criminally investigate or prosecute any alcohol or drug abuse patient.[facility] [facility] HospitalIn the event this information is protected by the Federal Confidentiality of Alcohol and Drug Abuse Patient Records regulations: The Federal rules restrict any use of the information to criminally investigate or prosecute any alcohol or drug abuse patient.[facility] [facility] HospitalIn the event this information is protected by the Federal Confidentiality of Alcohol and Drug Abuse Patient Records regulations: The Federal rules restrict any use of the information to criminally investigate or prosecute any alcohol or drug abuse patient.[facility] [facility] HospitalIn the event this information is protected by the Federal Confidentiality of Alcohol and Drug Abuse Patient Records regulations: The Federal rules restrict any use of the information to criminally investigate or prosecute any alcohol or drug abuse patient.[facility] [facility] HospitalIn the event this information is protected by the Federal Confidentiality of Alcohol and Drug Abuse Patient Records regulations: The Federal rules restrict any use of the information to criminally investigate or prosecute any alcohol or drug abuse patient.[facility] [facility] HospitalIn the event this information is protected by the Federal Confidentiality of Alcohol and Drug Abuse Patient Records regulations: The Federal rules restrict any use of the information to criminally investigate or prosecute any alcohol or drug abuse patient.[facility] [facility] HospitalIn the event this information is protected by the Federal Confidentiality of Alcohol and Drug Abuse Patient Records regulations: The Federal rules restrict any use of the information to criminally investigate or prosecute any alcohol or drug abuse patient.[facility] [facility] HospitalIn the event this information is protected by the Federal Confidentiality of Alcohol and Drug Abuse Patient Records regulations: The Federal rules restrict any use of the information to criminally investigate or prosecute any alcohol or drug abuse patient.[facility] [facility] HospitalIn the event this information is protected by the Federal Confidentiality of Alcohol and Drug Abuse Patient Records regulations: The Federal rules restrict any use of the information to criminally investigate or prosecute any alcohol or drug abuse patient.[facility] [facility] HospitalIn the event this information is protected by the Federal Confidentiality of Alcohol and Drug Abuse Patient Records regulations: The Federal rules restrict any use of the information to criminally investigate or prosecute any alcohol or drug abuse patient.[facility] [facility] HospitalIn the event this information is protected by the Federal Confidentiality of Alcohol and Drug Abuse Patient Records regulations: The Federal rules restrict any use of the information to criminally investigate or prosecute any alcohol or drug abuse patient.[facility] [facility] HospitalIn the event this information is protected by the Federal Confidentiality of Alcohol and Drug Abuse Patient Records regulations: The Federal rules restrict any use of the information to criminally investigate or prosecute any alcohol or drug abuse patient.[facility] [facility] HospitalIn the event this information is protected by the Federal Confidentiality of Alcohol and Drug Abuse Patient Records regulations: The Federal rules restrict any use of the information to criminally investigate or prosecute any alcohol or drug abuse patient.[facility] [facility] HospitalIn the event this information is protected by the Federal Confidentiality of Alcohol and Drug Abuse Patient Records regulations: The Federal rules restrict any use of the information to criminally investigate or prosecute any alcohol or drug abuse patient.[facility] [facility] HospitalIn the event this information is protected by the Federal Confidentiality of Alcohol and Drug Abuse Patient Records regulations: The Federal rules restrict any use of the information to criminally investigate or prosecute any alcohol or drug abuse patient.[facility] [facility] HospitalIn the event this information is protected by the Federal Confidentiality of Alcohol and Drug Abuse Patient Records regulations: The Federal rules restrict any use of the information to criminally investigate or prosecute any alcohol or drug abuse patient.[place] [facility] HospitalIn the event this information is protected by the Federal Confidentiality of Alcohol and Drug Abuse Patient Records regulations: The Federal rules restrict any use of the information to criminally investigate or prosecute any alcohol or drug abuse patient.[facility] [facility] HospitalIn the event this information is protected by the Federal Confidentiality of Alcohol and Drug Abuse Patient Records regulations: The Federal rules restrict any use of the information to criminally investigate or prosecute any alcohol or drug abuse patient.[facility] [facility] HospitalIn the event this information is protected by the Federal Confidentiality of Alcohol and Drug Abuse Patient Records regulations: The Federal rules restrict any use of the information to criminally investigate or prosecute any alcohol or drug abuse patient.[facility] [facility] HospitalIn the event this information is protected by the Federal Confidentiality of Alcohol and Drug Abuse Patient Records regulations: The Federal rules restrict any use of the information to criminally investigate or prosecute any alcohol or drug abuse patient.[place] [facility] HospitalIn the event this information is protected by the Federal Confidentiality of Alcohol and Drug Abuse Patient Records regulations: The Federal rules restrict any use of the information to criminally investigate or prosecute any alcohol or drug abuse patient.[facility] [facility] HospitalIn the event this information is protected by the Federal Confidentiality of Alcohol and Drug Abuse Patient Records regulations: The Federal rules restrict any use of the information to criminally investigate or prosecute any alcohol or drug abuse patient.[facility] [facility] HospitalIn the event this information is protected by the Federal Confidentiality of Alcohol and Drug Abuse Patient Records regulations: The Federal rules restrict any use of the information to criminally investigate or prosecute any alcohol or drug abuse patient.[facility] [facility] HospitalIn the event this information is protected by the Federal Confidentiality of Alcohol and Drug Abuse Patient Records regulations: The Federal rules restrict any use of the information to criminally investigate or prosecute any alcohol or drug abuse patient.[facility] [facility] HospitalIn the event this information is protected by the Federal Confidentiality of Alcohol and Drug Abuse Patient Records regulations: The Federal rules restrict any use of the information to criminally investigate or prosecute any alcohol or drug abuse patient.[facility] [facility] HospitalIn the event this information is protected by the Federal Confidentiality of Alcohol and Drug Abuse Patient Records regulations: The Federal rules restrict any use of the information to criminally investigate or prosecute any alcohol or drug abuse patient.[facility] [facility] HospitalIn the event this information is protected by the Federal Confidentiality of Alcohol and Drug Abuse Patient Records regulations: The Federal rules restrict any use of the information to criminally investigate or prosecute any alcohol or drug abuse patient.[facility] [facility] HospitalIn the event this information is protected by the Federal Confidentiality of Alcohol and Drug Abuse Patient Records regulations: The Federal rules restrict any use of the information to criminally investigate or prosecute any alcohol or drug abuse patient.[facility] [facility] HospitalIn the event this information is protected by the Federal Confidentiality of Alcohol and Drug Abuse Patient Records regulations: The Federal rules restrict any use of the information to criminally investigate or prosecute any alcohol or drug abuse patient.[facility] [facility] HospitalIn the event this information is protected by the Federal Confidentiality of Alcohol and Drug Abuse Patient Records regulations: The Federal rules restrict any use of the information to criminally investigate or prosecute any alcohol or drug abuse patient.[facility] [facility] HospitalIn the event this information is protected by the Federal Confidentiality of Alcohol and Drug Abuse Patient Records regulations: The Federal rules restrict any use of the information to criminally investigate or prosecute any alcohol or drug abuse patient.[facility] [facility] HospitalIn the event this information is protected by the Federal Confidentiality of Alcohol and Drug Abuse Patient Records regulations: The Federal rules restrict any use of the information to criminally investigate or prosecute any alcohol or drug abuse patient.[facility] [facility] HospitalIn the event this information is protected by the Federal Confidentiality of Alcohol and Drug Abuse Patient Records regulations: The Federal rules restrict any use of the information to criminally investigate or prosecute any alcohol or drug abuse patient.[facility] [facility] HospitalIn the event this information is protected by the Federal Confidentiality of Alcohol and Drug Abuse Patient Records regulations: The Federal rules restrict any use of the information to criminally investigate or prosecute any alcohol or drug abuse patient.[facility] [facility] HospitalIn the event this information is protected by the Federal Confidentiality of Alcohol and Drug Abuse Patient Records regulations: The Federal rules restrict any use of the information to criminally investigate or prosecute any alcohol or drug abuse patient.[facility] [facility] HospitalIn the event this information is protected by the Federal Confidentiality of Alcohol and Drug Abuse Patient Records regulations: The Federal rules restrict any use of the information to criminally investigate or prosecute any alcohol or drug abuse patient.[facility] [facility] HospitalIn the event this information is protected by the Federal Confidentiality of Alcohol and Drug Abuse Patient Records regulations: The Federal rules restrict any use of the information to criminally investigate or prosecute any alcohol or drug abuse patient.[facility] [facility] HospitalIn the event this information is protected by the Federal Confidentiality of Alcohol and Drug Abuse Patient Records regulations: The Federal rules restrict any use of the information to criminally investigate or prosecute any alcohol or drug abuse patient.[facility] [facility] HospitalIn the event this information is protected by the Federal Confidentiality of Alcohol and Drug Abuse Patient Records regulations: The Federal rules restrict any use of the information to criminally investigate or prosecute any alcohol or drug abuse patient.[facility] [facility] HospitalIn the event this information is protected by the Federal Confidentiality of Alcohol and Drug Abuse Patient Records regulations: The Federal rules restrict any use of the information to criminally investigate or prosecute any alcohol or drug abuse patient.[facility] [facility] HospitalIn the event this information is protected by the Federal Confidentiality of Alcohol and Drug Abuse Patient Records regulations: The Federal rules restrict any use of the information to criminally investigate or prosecute any alcohol or drug abuse patient.[facility] [facility] HospitalIn the event this information is protected by the Federal Confidentiality of Alcohol and Drug Abuse Patient Records regulations: The Federal rules restrict any use of the information to criminally investigate or prosecute any alcohol or drug abuse patient.[facility] [facility] HospitalIn the event this information is protected by the Federal Confidentiality of Alcohol and Drug Abuse Patient Records regulations: The Federal rules restrict any use of the information to criminally investigate or prosecute any alcohol or drug abuse patient.[facility] [facility] HospitalIn the event this information is protected by the Federal Confidentiality of Alcohol and Drug Abuse Patient Records regulations: The Federal rules restrict any use of the information to criminally investigate or prosecute any alcohol or drug abuse patient.[facility] [facility] HospitalIn the event this information is protected by the Federal Confidentiality of Alcohol and Drug Abuse Patient Records regulations: The Federal rules restrict any use of the information to criminally investigate or prosecute any alcohol or drug abuse patient.[facility] [facility] HospitalIn the event this information is protected by the Federal Confidentiality of Alcohol and Drug Abuse Patient Records regulations: The Federal rules restrict any use of the information to criminally investigate or prosecute any alcohol or drug abuse patient.[facility] [facility] HospitalIn the event this information is protected by the Federal Confidentiality of Alcohol and Drug Abuse Patient Records regulations: The Federal rules restrict any use of the information to criminally investigate or prosecute any alcohol or drug abuse patient.[facility] [facility] HospitalIn the event this information is protected by the Federal Confidentiality of Alcohol and Drug Abuse Patient Records regulations: The Federal rules restrict any use of the information to criminally investigate or prosecute any alcohol or drug abuse patient.[facility] [facility] HospitalIn the event this information is protected by the Federal Confidentiality of Alcohol and Drug Abuse Patient Records regulations: The Federal rules restrict any use of the information to criminally investigate or prosecute any alcohol or drug abuse patient.[facility] [facility] HospitalIn the event this information is protected by the Federal Confidentiality of Alcohol and Drug Abuse Patient Records regulations: The Federal rules restrict any use of the information to criminally investigate or prosecute any alcohol or drug abuse patient.[facility] [facility] HospitalIn the event this information is protected by the Federal Confidentiality of Alcohol and Drug Abuse Patient Records regulations: The Federal rules restrict any use of the information to criminally investigate or prosecute any alcohol or drug abuse patient.[facility] [facility] HospitalIn the event this information is protected by the Federal Confidentiality of Alcohol and Drug Abuse Patient Records regulations: The Federal rules restrict any use of the information to criminally investigate or prosecute any alcohol or drug abuse patient.[facility] [facility] HospitalIn the event this information is protected by the Federal Confidentiality of Alcohol and Drug Abuse Patient Records regulations: The Federal rules restrict any use of the information to criminally investigate or prosecute any alcohol or drug abuse patient.[facility] [facility] HospitalIn the event this information is protected by the Federal Confidentiality of Alcohol and Drug Abuse Patient Records regulations: The Federal rules restrict any use of the information to criminally investigate or prosecute any alcohol or drug abuse patient.[facility] [facility] HospitalIn the event this information is protected by the Federal Confidentiality of Alcohol and Drug Abuse Patient Records regulations: The Federal rules restrict any use of the information to criminally investigate or prosecute any alcohol or drug abuse patient.[facility] [facility] HospitalIn the event this information is protected by the Federal Confidentiality of Alcohol and Drug Abuse Patient Records regulations: The Federal rules restrict any use of the information to criminally investigate or prosecute any alcohol or drug abuse patient.[facility] [facility] Reason for Visit (unrecogniz ed section and content) Specialty Diagnoses / Procedures Referred By Altagracia méndez Referred To Contact MOLECULAR & FUNCTIONAL IMAGING Diagnoses Shortness of breath Procedures NM CARDIAC PERF STRESS/EXERCISE MYOCARDIAL IMAGING, MULTIPLE Earnestine Helton, PANTOGRAPH ENGRAVER.[facility] [address] [id number] Molecular & Functional Imaging [address] [place] [address] Referral ID Status Reason Start Date Expiration Date V isits Requested Visits Authorized [id number] Closed PCP Requested Referral 03/15/2020 05/14/2020 3 3 Reason Onset Date Comments Refill Request 05/05/2021 Specialty Diagnoses / Procedures Referred By Altagracia méndez Referred To Contact MR IMAGING Diagnoses Mass of right wrist Procedures MRI WRIST WO IVCON RT MRI, JOINT UPPER EXTREM Chet Malik PA-C [address] [place] [address] Mr Imaging Referral ID Status Reason Start Date Expiration Date V isits Requested Visits Authorized [id number] Closed Auto-Generate d Referral 12/28/2020 01/27/2022 1 1 Reason Comments Established Patient Pain Results - Mri Reason Comments Pre-Op Visit Reason Onset Date Comments Refill Request 05/24/2021 Reason Comments Established Patient Swelling Post Op Reason Comments Patient Update Reason Comments Established Patient Post Op Reason Comments Pain (Shoulder Pain) right shoulder x 1 day, while lifting Reason Comments Results Reason Comments Medication Request Reason Comments Diabetes Pt having issues wit h setting up replacement pump Reason Onset Date Comments Refill Request 07/15/2021 Reason Onset Date Comments Refill Request 07/18/2021 Reason Comments Refill Request Reason Onset Date Comments Refill Request 07/21/2021 Reason Onset Date Comments Outpatient Colonoscopy 07/24/2021 Reason Comments Physical Reason Comments Excuse for Jury Duty Reason Comments Letter Reason Comments Neck Pain Reason Comments Appointment Reason Onset Date Comments Refill Request 08/16/2021 Reason Comments [employer] Pump Software Update Reason Comments Pain Specialty Diagnoses / Procedures Referred By Contac t Referred To Contact [facility] Diagnoses Upper back pain Procedures CONSULT TO PAIN MGT OFFICE/OUTPATIENT [facility] MDM [id number] MINUTES Yifan Blum DO [address] [place] [address] Anesthesia [place] [address] [place] [address] Referral ID Status Reason Start Date Expiration Date V isits Requested Visits Authorized [id number] Closed PCP Requested Referral 08/11/2021 08/11/2022 1 1 Reason Onset Date Comments Refill Request 09/12/2021 Reason Comments [facility] Reason Comments Diabetes Established Patient. Reason Onset Date Comments Refill Request 10/16/2021 Reason Comments Knee Pain left knee and right wrist pain after fall x last night Reason Comments [facility] Request las t OV Note and Provider signature Reason Comments Question Reason Comments Patient Question Triage Reason Comments Cough Cough x 1 day Reason Comments Covid19 Concern Reason Comments Covid19 Concern Reason Comments Covid Follow Up Specialty Diagnoses / Procedures Referred By Contac t Referred To Contact Diagnoses COVID-19 Procedures COVID TREATMENT REFERRAL COVID TREATMENT REFERRAL Carmen Gamez APRN.[facility] [address] [place] [address] Referral ID Status Reason Start Date Expiration Date Visits Requested Visits Authorized [id number] Pending Review Auto-Generat ed Referral 11/13/2021 11/13/2022 1 1 Reason Onset Date Comments Refill Request 11/20/2021 Reason Onset Date Comments Refill Request 11/22/2021 Reason Comments Patient Request Reason Comments Established Patient Knee Pain Reason Comments PT Eval Specialty Diagnoses / Procedures Referred By Contac t Referred To Contact [facility] Diagnoses Tear of medial meniscus of left knee, current, unspecified tear type, initial encounter Procedures CONSULT TO PHYSICAL THERAPY PHYSICAL THERAPY EVALUATION HIGH COMPLEX [address] [place] [address] [place] [address] [facility] [place] [address] [place] [id number] Referral ID Status Reason Start Date Expiration Date V isits Requested Visits Authorized [id number] Closed Auto-Generate d Referral 12/08/2021 02/10/2022 1 1 Reason Comments Physical Therapy Specialty Diagnoses / Procedures Referred By Contac t Referred To Contact [facility] Diagnoses Tear of medial meniscus of left knee, current, unspecified tear type, initial encounter Procedures PT REHAB FOLLOW UP ORDER THERAPEUTIC EXERCISES RE, EA 15 MIN. Chayito Valentine, PT [facility] [address] [address] Referral ID Status Reason Start Date Expiration Date Visits Requested Visits Authorized [id number] Authorized PCP Requested Referral Auto-Generate d Referral 12/13/2021 02/10/2022 20 20 Reason Comments Opened In Error Reason Comments Cough Covid + x 1 month ag o Reason Comments Vertigo Specialty Diagnoses / Procedures Referred By Hanyac t Referred To Contact [facility] Diagnoses Acute pain of left knee Procedures MRI KNEE WO IVCON LT MRI ANY JT LOWER EXTREM W/O CONTRAST Chet Reinoso PA-C [address] [place] [address] Mr Imaging Referral ID Status Reason Start Date Expiration Date V isits Requested Visits Authorized [id number] Closed Auto-Generate d Referral 12/28/2021 02/26/2022 1 1 Reason Comments Patient Question Reason Comments New Left index trigger finger Reason Comments Schedule Surgery Reason Comments Orders Reason Onset Date Comments Population Health Navigation Outreach 02/08/2022 HCC Gaps Reason Onset Date Comments Refill Request 02/11/2022 Reason Onset Date Comments Refill Request 03/02/2022 Reason Onset Date Comments Refill Request 03/14/2022 Reason Comments Follow Up Headache X 5 daysOngoing posi tional vertigo, looking up or down or rolling on right hand side Reason Comments Spirometry Specialty Diagnoses / Procedures Referred By Contac t Referred To Contact [facility] Diagnoses COVID-19 long hauler Subacute cough Procedures SPIROMETRY - BASELINE AND POST DILATOR BRNCDILAT RSPSE SPMTRY PRE&POST-BRNCDILAT ADMN Yifan Blum, DO [address] [place] [address] [facility] [place] [address] [place] [id number] Referral ID Status Reason Start Date Expiration Date V isits Requested Visits Authorized [id number] Closed Auto-Generate d Referral 03/27/2022 02/10/2023 1 1 Specialty Diagnoses / Procedures Referred By Contac t Referred To Contact [facility] Diagnoses COVID-19 long hauler Subacute cough Procedures LUNG VOLUMES Yifan Blum, DO [address] [place] [address] [facility] [place] [address] [place], [place] [id number] Referral ID Status Reason Start Date Expiration Date V isits Requested Visits Authorized [id number] Closed Auto-Generate d Referral 03/27/2022 02/10/2023 1 1 Reason Comments PT Eval Patient Education Specialty Diagnoses / Procedures Referred By Contac t Referred To Contact [facility] Diagnoses BPPV (benign paroxysmal positional vertigo), unspecified laterality COVID-19 long sandrauler Procedures CONSULT TO PHYSICAL THERAPY PHYSICAL THERAPY EVALUATION HIGH COMPLEX 45 MINS Yifan Blum, DO [address] [place] [address] [facility] [address] [address] Referral ID Status Reason Start Date Expiration Date V isits Requested Visits Authorized [id number] Closed Auto-Generate d Referral 02/11/2022 02/10/2023 1 1 Reason Comments Cough Cough and congestion x 1 day Reason Onset Date Comments Refill Request 04/24/2022 Reason Comments Pain Established Patient Reason Comments Left Knee Pain Fell yesterday Reason Comments Back Pain Reason Onset Date Comments Refill Request 07/17/2022 Reason Comments LMN for Insulin Pump & Insulin Pump Supp lies [facility] Reason Comments Appointment Reason Comments Insurance Authorization Insulin Pump Reason Comments [facility] Form CMN for CGMS-Dex com Reason Onset Date Comments Refill Request 09/23/2022 Specialty Diagnoses / Procedures Referred By Contac t Referred To Contact [facility] Diagnoses Spasticity Balance disorder Bladder dysfunction Spinal stenosis of cervical region Procedures MRI CERVICAL SPINE WO IVCON MRI SPINAL CANAL CERVICAL [place] [address] [place] [phone] [place] [facility] Referral ID Status Reason Start Date Expiration Date V isits Requested Visits Authorized [id number] Closed Auto-Generate d Referral 09/13/2022 11/12/2022 1 1 Specialty Diagnoses / Procedures Referred By Contac t Referred To Contact [facility] Diagnoses Chronic bilateral low back pain with left-sided sciatica Bladder dysfunction Spinal stenosis of lumbar region with neurogenic claudication Procedures MRI LUMBAR SPINE WO IVCON MRI SPINAL CANAL LUMBAR W/[place] [address] [place] [phone] Mr Imaging [place] [address] Referral ID Status Reason Start Date Expiration Date V isits Requested Visits Authorized [id number] Closed Auto-Generate d Referral 09/13/2022 11/12/2022 1 1 Reason Onset Date Comments Refill Request 10/02/2022 Reason Comments Follow Up Results - Mri Had mri lumbar and c ervical on 09/26/22 Low Back Pain States low back pain down the left leg. 6/10 pain Reason Comments Certificate of Medical Necessity:CGM Edw [facility] Care Services Specialty Diagnoses / Procedures Referred By Contac t Referred To Contact [facility] IMAG[facility] Diagnoses Balance disorder Spasticity Bladder dysfunction Procedures MRI THORACIC SPINE WO IVCON MRI SPINAL CANAL THORACIC [place] [address] [place] [phone] [place] [address] Referral ID Status Reason Start Date Expiration Date V isits Requested Visits Authorized [id number] Closed Auto-Generate d Referral 10/16/2022 12/15/2022 1 1 Reason Comments Physical Reason Onset Date Comments Refill Request 10/26/2022 Reason Comments New Patient Neck Pain Balance issues Specialty Diagnoses / Procedures Referred By Contac t Referred To Contact Diagnoses Balance disorder Spasticity Spinal stenosis in cervical region Procedures [place]ULT [place] [address] [place] [phone] Referral ID Status Reason Start Date Expiration Date Visits Re quested Visits Authorized [id number] Closed 10/05/2022 01/03/2023 1 1 Reason Onset Date Comments Refill Request 11/15/2022 Reason Comments Preparations For Procedures Reason Comments Established Patient Pain Trigger Finger Reason Comments Patient Question Authorization for Sp ine injection Reason Onset Date Comments Refill Request 12/07/2022 Reason Comments Pre-Op Exam Specialty Diagnoses / Procedures Referred By Contac t Referred To Contact [facility] Diagnoses Balance disorder Procedures MRI BRAIN WO IVCON MRI BRAIN BRAIN STEM W/[place] [address] [address] [place] [address] Mr Imaging [place] [address] Referral ID Status Reason Start Date Expiration Date V isits Requested Visits Authorized [id number] Closed Auto-Generate d Referral 11/26/2022 01/25/2023 1 1 Reason Comments Follow Up Reason Onset Date Comments Refill Request 01/06/2023 Reason Comments Orders Reason Comments Results Lab factor VIII Reason Comments New Patient Care Teams (unrecognized sec tion and content) Special Library Librarian Relationship Specialty Start Date End Date Yifan Blum, DO [address] [place] [address] PCP - General Family Practice 09/20/14 Special Library Librarian Relationship Specialty Start Date End Date Yifan Blum DO [address] [place] [address] PCP - General Family Practice 09/20/14 Special Library Librarian Relationship Specialty Start Date End Date Yifan Blum, DO [address] [place] [address] PCP - General Family Practice 09/20/14 Special Library Librarian Relationship Specialty Start Date End Date Blum, Yifan L, DO [address] [place] [address] PCP - General Family Practice 09/20/14 Special Library Librarian Relationship Specialty Start Date End Date Yifan Blum, DO [address] [place] [address] PCP - General Family Practice 09/20/14 Special Library Librarian Relationship Specialty Start Date End Date Yifan Blum, DO [address] [place] [address] PCP - General Family Practice 09/20/14 Special Library Librarian Relationship Specialty Start Date End Date Yifan Blum, DO [address] [place] [address] PCP - General Family Practice 09/20/14 Special Library Librarian Relationship Specialty Start Date End Date Yifan Blum, DO [address] [place] [address] PCP - General Family Practice 09/20/14 Special Library Librarian Relationship Specialty Start Date End Date Yifan Blum, DO [address] [place] [address] PCP - General Family Practice 09/20/14 Special Library Librarian Relationship Specialty Start Date End Date Yifan Blum, DO [address] [place] [address] PCP - General Family Practice 09/20/14 Special Library Librarian Relationship Specialty Start Date End Date Yifan Blum, DO [address] [place] [address] PCP - General Family Practice 09/20/14 Special Library Librarian Relationship Specialty Start Date End Date Yifan Blum, DO [address] [place] [address] PCP - General Family Practice 09/20/14 Special Library Librarian Relationship Specialty Start Date End Date Yifan Blum, DO [address] [place] [address] PCP - General Family Practice 09/20/14 Special Library Librarian Relationship Specialty Start Date End Date Yifan Blum, DO [address] [place] [address] PCP - General Family Practice 09/20/14 Special Library Librarian Relationship Specialty Start Date End Date Yifan Blum, DO [address] [place] [address] PCP - General Family Practice 09/20/14 Special Library Librarian Relationship Specialty Start Date End Date Yifan Blum, DO [address] [place] [address] PCP - General Family Practice 09/20/14 Special Library Librarian Relationship Specialty Start Date End Date Yifan Blum, DO [address] [place] [address] PCP - General Family Practice 09/20/14 Special Library Librarian Relationship Specialty Start Date End Date Yifan Blum, DO [address] [place] [address] PCP - General Family Practice 09/20/14 Special Library Librarian Relationship Specialty Start Date End Date Yifan Blum, DO [address] [place] [address] PCP - General Family Practice 09/20/14 Special Library Librarian Relationship Specialty Start Date End Date Yifan Blum, DO [address] [place] [address] PCP - General Family Practice 09/20/14 Special Library Librarian Relationship Specialty Start Date End Date Yifan Blum, DO [address] [place] [address] PCP - General Family Medicine 09/20/14 Special Library Librarian Relationship Specialty Start Date End Date Yifan Blum, DO [address] [place] [address] PCP - General Family Medicine 09/20/14 Special Library Librarian Relationship Specialty Start Date End Date Yifan Blum, DO [address] [place] [address] PCP - General Family Medicine 09/20/14 Special Library Librarian Relationship Specialty Start Date End Date Yifan Blum, DO [address] [place] [address] PCP - General Family Medicine 09/20/14 Special Library Librarian Relationship Specialty Start Date End Date Yifan Blum, DO [address] [place] [address] PCP - General Family Medicine 09/20/14 Special Library Librarian Relationship Specialty Start Date End Date Yifan Blum, DO [address] [place] [address] PCP - General Family Medicine 09/20/14 Special Library Librarian Relationship Specialty Start Date End Date Yifan Blum, DO [address] [place] [address] PCP - General Family Medicine 09/20/14 Special Library Librarian Relationship Specialty Start Date End Date Yifan Blum, DO [address] [place] [address] PCP - General Family Medicine 09/20/14 Special Library Librarian Relationship Specialty Start Date End Date Yifan Blum, DO [address] [place] [address] PCP - General Family Medicine 09/20/14 Special Library Librarian Relationship Specialty Start Date End Date Yifan Blum, DO [address] [place] [address] PCP - General Family Medicine 09/20/14 Special Library Librarian Relationship Specialty Start Date End Date Yifan Blum, DO [address] [place] [address] PCP - General Family Medicine 09/20/14 Special Library Librarian Relationship Specialty Start Date End Date Yifan Blum, DO [address] [place] [address] PCP - General Family Medicine 09/20/14 Special Library Librarian Relationship Specialty Start Date End Date Yifan Blum, DO [address] [place] [address] PCP - General Family Medicine 09/20/14 Special Library Librarian Relationship Specialty Start Date End Date Yifan Blum, DO [address] [place] [address] PCP - General Family Medicine 09/20/14 Special Library Librarian Relationship Specialty Start Date End Date Yifan Blum, DO [address] [place] [address] PCP - General Family Medicine 09/20/14 Special Library Librarian Relationship Specialty Start Date End Date Yifan Blum, DO [address] [place] [address] PCP - General Family Medicine 09/20/14 Special Library Librarian Relationship Specialty Start Date End Date Yifan Blum, DO [address] [place] [address] PCP - General Family Medicine 09/20/14 Special Library Librarian Relationship Specialty Start Date End Date Yifan Blum, DO [address] [place] [address] PCP - General Family Medicine 09/20/14 Special Library Librarian Relationship Specialty Start Date End Date Yifan Blum, DO [address] [place] [address] PCP - General Family Medicine 09/20/14 Special Library Librarian Relationship Specialty Start Date End Date Yifan Blum, DO [address] [place] [address] PCP - General Family Medicine 09/20/14 Special Library Librarian Relationship Specialty Start Date End Date Yifan Blum, DO [address] [place] [address] PCP - General Family Medicine 09/20/14 Special Library Librarian Relationship Specialty Start Date End Date Yifan Blum, DO [address] [place] [address] PCP - General Family Medicine 09/20/14 Special Library Librarian Relationship Specialty Start Date End Date Yifan Blum, DO [address] [place] [address] PCP - General Family Medicine 09/20/14 Special Library Librarian Relationship Specialty Start Date End Date Yifan Blum, DO [address] [place] [address] PCP - General Family Medicine 09/20/14 Special Library Librarian Relationship Specialty Start Date End Date Yifan Blum, DO [address] [place] [address] PCP - General Family Medicine 09/20/14 Special Library Librarian Relationship Specialty Start Date End Date Yifan Blum, DO [address] [place] [address] PCP - General Family Medicine 09/20/14 Special Library Librarian Relationship Specialty Start Date End Date Yifan Blum, DO [address] [place] [address] PCP - General Family Medicine 09/20/14 Special Library Librarian Relationship Specialty Start Date End Date Yifan Blum, DO [address] [facility] [place] [address] PCP - General Family Medicine 09/20/14 Special Library Librarian Relationship Specialty Start Date End Date Yifan Blum DO [address] [place] [address] PCP - General Family Medicine 09/20/14 Special Library Librarian Relationship Specialty Start Date End Date Yifan Blum DO [address] [facility] [place] [address] PCP - General Family Medicine 09/20/14 Special Library Librarian Relationship Specialty Start Date End Date Yifan Blum DO [address] [facility] [place] [address] PCP - General Family Medicine 09/20/14 Special Library Librarian Relationship Specialty Start Date End Date Yifan Blum DO [address] [facility] [place] [address] PCP - General Family Medicine 09/20/14 Special Library Librarian Relationship Specialty Start Date End Date Yifan Blum DO [address] [facility] [place] [address] PCP - General Family Medicine 09/20/14 Special Library Librarian Relationship Specialty Start Date End Date Yifan Blum DO [address] [facility] [place] [address] PCP - General Family Medicine 09/20/14 Special Library Librarian Relationship Specialty Start Date End Date Yifan Blum DO [address] [facility] [place] [address] PCP - General Family Medicine 09/20/14 Special Library Librarian Relationship Specialty Start Date End Date Yifan Blum DO [address] [place] [address] PCP - General Family Medicine 09/20/14 Special Library Librarian Relationship Specialty Start Date End Date Yifan Blum, DO [address] [place] [address] PCP - General Family Medicine 09/20/14 Special Library Librarian Relationship Specialty Start Date End Date Yifan Blum, DO [address] [place] [address] PCP - General Family Medicine 09/20/14 Special Library Librarian Relationship Specialty Start Date End Date Yifan Blum DO [address] [place] [address] PCP - General Family Medicine 09/20/14 Special Library Librarian Relationship Specialty Start Date End Date Yifan Blum, [address] [place] [address] PCP - General Family Medicine 09/20/14 Special Library Librarian Relationship Specialty Start Date End Date Yifan Blum, DO [address] [place] [address] PCP - General Family Medicine 09/20/14 Special Library Librarian Relationship Specialty Start Date End Date Yifan Blum DO [address] [place] [address] PCP - General Family Medicine 09/20/14 Special Library Librarian Relationship Specialty Start Date End Date Yifan Blum, DO [address] [place] [address] PCP - General Family Medicine 09/20/14 Special Library Librarian Relationship Specialty Start Date End Date Yifan Blum, [address] [place] [address] PCP - General Family Medicine 09/20/14 Special Library Librarian Relationship Specialty Start Date End Date Yifan Blum, [address] [place] [address] PCP - General Family Medicine 09/20/14 Special Library Librarian Relationship Specialty Start Date End Date Yifan Blum, [address] [place] [address] PCP - General Family Medicine 09/20/14 Special Library Librarian Relationship Specialty Start Date End Date Yifan Blum, [address] [place] [address] PCP - General Family Medicine 09/20/14 Special Library Librarian Relationship Specialty Start Date End Date Yifan Blum DO [address] [place] [address] PCP - General Family Medicine 09/20/14 Special Library Librarian Relationship Specialty Start Date End Date Yifan Blum, [address] [place] [address] PCP - General Family Medicine 09/20/14 Special Library Librarian Relationship Specialty Start Date End Date Yifan Blum, [address] [place] [address] PCP - General Family Medicine 09/20/14 Special Library Librarian Relationship Specialty Start Date End Date Yifan Blum, [address] [place] [address] PCP - General Family Medicine 09/20/14 Special Library Librarian Relationship Specialty Start Date End Date Yifan Blum DO [address] [place] [address] PCP - General Family Medicine 09/20/14 Special Library Librarian Relationship Specialty Start Date End Date Yifan Blum, [address] [place] [address] PCP - General Family Medicine 09/20/14 Special Library Librarian Relationship Specialty Start Date End Date Yifan Blum DO [address] [place] [address] PCP - General Family Medicine 09/20/14 Special Library Librarian Relationship Specialty Start Date End Date Yifan Blum DO [address] [place] [address] PCP - General Family Medicine 09/20/14 Special Library Librarian Relationship Specialty Start Date End Date Yifan Blum DO [address] [place] [address] PCP - General Family Medicine 09/20/14 Special Library Librarian Relationship Specialty Start Date End Date Yifan Blum DO [address] [place] [address] PCP - General Family Medicine 09/20/14 Special Library Librarian Relationship Specialty Start Date End Date Yifan Blum DO [address] [place] [address] PCP - General Family Medicine 09/20/14 Special Library Librarian Relationship Specialty Start Date End Date Yifan Blum DO [address] [place] [address] PCP - General Family Medicine 09/20/14 Special Library Librarian Relationship Specialty Start Date End Date Yifan Blum DO [address] [place] [address] PCP - General Family Medicine 09/20/14 Special Library Librarian Relationship Specialty Start Date End Date Yifan Blum DO [address] [place] [address] PCP - General Family Medicine 09/20/14 Special Library Librarian Relationship Specialty Start Date End Date Yifan Blum DO [address] [place] [address] PCP - General Family Medicine 09/20/14 Special Library Librarian Relationship Specialty Start Date End Date Yifan Blum DO [address] [place] [address] PCP - General Family Medicine 09/20/14 Special Library Librarian Relationship Specialty Start Date End Date Yifan Blum DO [address] [place] [address] PCP - General Family Medicine 09/20/14 Special Library Librarian Relationship Specialty Start Date End Date Yifan Blum DO [address] [facility] [place] [address] PCP - General Family Medicine 09/20/14 Special Library Librarian Relationship Specialty Start Date End Date Yifan Blum DO [address] [facility] [place] [address] PCP - General Family Medicine 09/20/14 Special Library Librarian Relationship Specialty Start Date End Date Yifan Blum DO [address] [place] [address] PCP - General Family Medicine 09/20/14 FOR RECORDS PERTAINING TO PATIENTS WHO ARE OR HAVE BEEN ENROLLED IN A CHEMICAL DEPENDENCY/SUBSTANCEABUSE PROGRAM, SOME INFORMATION MAY BE OMITTED. This clinical summary was aggregated from multiple sources. Caution should be exercised in using it in the provision of clinical care. This summary normalizes information from multiple sources, and as a consequence, information in this document may materially change the coding, format and clinical context of patient data. In addition, data may be omitted in some cases. CLINICAL DECISIONS SHOULD BE BASED ON THE PRIMARY CLINICAL RECORDS. [facility]. provides no warranty or guarantee of the accuracy or completeness of information in this document.
[2023-03-10 20:54] LABS: Absolute Lymphocyte Count 1.11 X10^3/uL (0.83-4.51); Absolute Neutrophil Count 9.1 X10^3/uL (2.0-7.7); Basophil# 0.06 X10^3/uL; Basophil% 0.5 % (0-1); Eosinophil# 0.17 X10^3/uL; Eosinophils% 1.5 % (0-5); Hematocrit 48.4 % (37-47); Hemoglobin 15.7 g/dL (12.0-15.0); Lymphocyte # 1.11 X10^3/ul (0.83-4.51); Lymphocyte % 9.6 % (19-41); Mean Corp Hgb Conc 32.4 g/dL (32-36); Mean Corpuscular Hgb 28.6 pg (27.0-32.0); Mean Corpuscular Volume 88.3 fL (81-99); Mean Platelet Vol. 8.9 fl (6.2-12.0); Monocyte# 1.04 X10^3/uL; NRBC Flagged by Analyzer 0 % (0-5); Neutrophil % 79.1 % (47-70); Platelet Count 279 K/mm3 (150-450); RBC Distribution Width CV 12.8 % (11.6-14.6); RBC Distribution Width SD 41.5 fl (35.1-43.9); Red Blood Count 5.48 M/mm3 (4.2-5.4); White Blood Count 11.5 K/mm3 (4.4-11.0)
[2023-03-10 21:14] LABS: ALB/GLOB Ratio 0.9 RATIO (0.9-2.4); AST(SGOT) 13 U/L (15-37); Alanine Aminotransfer ALT/SGPT 20 U/L (13-56); Albumin, Serum 3.7 g/dL (3.2-5.0); Alkaline Phosphatase 74 U/L (45-117); Anion Gap 3 (5-15); BUN 9 mg/dL (7-18); BUN/Creat Ratio 10.8 RATIO (10-20); Calcium,Total 9.5 mg/dL (8.5-10.1); Chloride 112 mmol/L (98-107); Creatinine, Serum 0.83 mg/dL (0.55-1.02); EST Glomerular Filtration Rate 76 mL/min (>60); Est Glom Filt Rate - Afr Amer 93 mL/min (>60); Estimated Creatinine Clearance 91.13 ml/min; Globulin 3.9 g/dL (2.2-4.2); Glucose 68 mg/dL (74-106); Lipase 36 U/L (13-75); Potassium 3.6 mmol/L (3.5-5.1); Protein, Total 7.6 g/dL (6.4-8.2); Sodium Level 141 mmol/L (136-145)
--- NOTE | 2023-03-10 21:29 | NURSING ---
Per pt dexcom g6, current BG is 148.
[2023-03-10 21:30] LABS: Bacteria 0 SEEN /hpf (None Seen); Mucous, Urine 0 SEEN /hpf (<or=2+)
[2023-03-10 21:31] LABS: Color, Urine Yellow (Yellow); Glucose, Dipstick 1000 mg/dl (Normal); Ketone-Dipstick 5 mg/dl (Negative); Nitrite-Dipstick Negative (Negative); Occult Blood-Urine 10 /ul (Negative); Protein-Dipstick 100 mg/dl (Negative); Specific Gravity, Urine 1.025 (1.002-1.030); Urine Bilirubin Dipstick Negative (Negative); Urine Clarity Cloudy (Clear); Urine Urobilinogen 1 mg/dl (Normal)
[2023-03-10 21:33] VITALS: BP 131/63; PULSE 94; RESP 20; O2SAT 95
[2023-03-10 21:35] VITALS: BP 131/63; PULSE 96; RESP 20; O2SAT 96
[2023-03-10 21:48] LABS: Leukocyte Esterase-Dipstick 100 /ul (Negative); Red Blood Cells-Urine 0-5 SEEN /hpf (0-5); Squamous Epithelial Cells - UA 5-10 SEEN /hpf (5-10); White Blood Cells 5-10 SEEN /hpf (0-5)
== END 2023-03-10 21:35 | disposition home or self-care (01) ==
PROVIDERS: Emergency Provider Emergency Medicine; PCP Student in an Organized Health Care Education/Training Program; Visit Provider Emergency Medicine
DX: E11.649 Type 2 diabetes mellitus with hypoglycemia without coma (principal); E11.43 Type 2 diabetes mellitus with diabetic autonomic (poly)neuropathy; Z79.4 Long term (current) use of insulin; K31.84 Gastroparesis; Z11.52 Encounter for screening for COVID-19; E78.00 Pure hypercholesterolemia, unspecified; Z87.891 Personal history of nicotine dependence; Z79.899 Other long term (current) drug therapy
CPT/HCPCS: 80053; 81001; 82962; 83690; 85025; 87631; 96361; 96374; 96375; 99284; J7030; A4216; J2405

== ENCOUNTER 2023-05-17 07:15 | Day surgery (SDC) | payer MEDICAID, SELFPAY ==
[2023-05-17] VITALS (7 sets, daily range): BP systolic 101–127; BP diastolic 60–73; PULSE 67–81; RESP 16; TEMP 36.5–37.1; O2SAT 93–98; BMI 49.4
[2023-05-17] MEDS: Lactated Ringers 1,000 ML 15 ML IV (07:49)
[2023-05-17 08:11] LABS: Bedside Glucose 173 mg/dL (74-106)
[2023-05-17] MEDS: Clindamycin 900 MG/50 ML BAG 75 MG IV (08:54)
--- NOTE | 2023-05-17 08:55 | RAD_ITS ---
INDICATION: PAIN EXAMINATION/TECHNIQUE: X-RAY - RIGHT XR Foot 2 Views 4 VIEWS COMPARISON: No relevant prior comparison study available FINDINGS: 3 views of the right fifth toe were obtained on a C-arm. Surgical pins overlying the distal fifth metatarsal. The examination was performed for documentation. The fluoroscopy time was 33 seconds. A radiation dose is 0.216 mGy. RAD/Foot 2 Views IMPRESSION: Postoperative exam as described above. Electronically Signed: Joseph Ortiz MD at 12:03 EDT ,
--- NOTE | 2023-05-17 08:55 | BUN_PTH ---
PATIENT: L[place] RODRIGUEZ [place] [facility] [id number] AGE/SX: 53/F ROOM: RE05/17/[address]: Dr. Evangelista Hand DPM : 1970 BED: DIS: 05/17/2023 SPEC #: [id number] RECD: 05/17/23 11:08 STATUS: SWAPNA REAlix #: [id number] VANGIE: 05/17/23 08:[address]: Evangelista Hand DEPT: SURGICAL PATHOLOGY RECD BY: Janeth Lala ENTERED: 05/17/23 12:21 SP TYPE: BUNION OTHR DR: Dr. Yifan Blum, DO Tissues: Bony tissue, NOS Procedures: Decalcification bone/plaque Surgery Specimen Level III HEADER OPERATION: 5th metatarsal osteotomy bunionectomy of the right foot PRE-OP DIAGNOSIS: Kathy teo TISSUE SUBMITTED: Kathy bruce right foot MICROSCOPIC DIAGNOSIS Consuelo bunion right foot, bunionectomy: A piece of bone with reactive changes, clinically bunion. / 05/22/2023 MICROSCOPIC DESCRIPTION Slides are reviewed. GROSS DESCRIPTION Received in fixative is one container labeled with the patient's name and designated Consuelo's bunion right foot. The specimen consists of a piece of bone measuring 2.0 x 1.2 x 0.3cm. The specimen is serially sectioned and submitted entirely in one cassette after decalcification. / 05/17/23 TC:5 CPT: 72157,20914
--- NOTE | 2023-05-17 09:05 | DCINST_ITS ---
Discharge Instructions Diet Discharge Diet: Light diet - advance as tolerated Activity Discharge Activity: May Not Drive Weight Bearing Status: No weight bearing (No weightbearing right foot) Keep extremity elevated above heart level: Right Leg (Keep right foot elevated for at least 50 minutes of every hour) Dressing / Incision Call your doctor if your incision/area has: Continuous Slow Oozing, Sudden Increased Bleeding and Foul Smelling Discharge Call your doctor if you observe: Fever of 101 or Higher, Shortness of breath, Chest pain, Increased palpitations (irregular heartbeat), Calf discomfort and Uncontrolled pain Change Dressing in: do not change dressing Remove Dressing in: do not remove dressing Cleanse incision/area with: Keep Dressing Clean & Dry Follow Up Care Please Follow Up With: Evangelista Hand DPM When: Next week in office, sooner if needed Test Results: Test results from this visit will be discussed in further detail at your follow- up appointment, if applicable. Discharge Plan Admission Attending Provider: Evangelista Hand Primary Care Provider: Yifan Blum Discharge Orders/Prescriptions Prescriptions: New Eliquis 2.5 mg tablet 2.5 mg PO Q12H Qty: 30 0RF hydrocodone-acetaminophen 5-325 mg tablet 1 tab PO Q6H 3 Days Qty: 20 0RF No Action meclizine 25 MG tablet 50 mg PO QHS atenolol 50 MG tablet 50 mg PO QHS rosuvastatin 20 MG tablet 20 mg PO DAILY lansoprazole 30 MG capsule 60 mg PO QHS levetiracetam [Keppra] 250 mg tablet 250 mg PO QHS gabapentin 300 mg Tablet 900 mg PO BID gabapentin 300 mg Tablet 1,200 mg PO QHS Linzess 72 mcg Capsule 72 mcg PO DAILY PRN (Reason: gastrointestinal spasms or cramping) sulfamethoxazole-trimethoprim [sulfamethoxazole-trimethoprim] 800-160 mg tablet 1 tab PO BID Qty: 20 0RF Humulin R U-500 (Conc) Insulin 500 unit/mL solution See Rx Instructions SC BID Rx Instructions: basal 2.9 units per hour at night, 4.5 units during daytime glucagon (human recombinant) 1 mg recon soln 1 mg IM ONCE PRN (Reason: hypoglycemia) diazepam [diazepam] 5 mg tablet 5 mg PO QHS PRN PRN (Reason: Muscle Spasm) Referrals / Follow Up: Blum,Yifan, DO [Primary Care Provider] - Disposition Disposition (needs filled in before D/C Order can be placed): Home, Self Care
[2023-05-17] MEDS: Bupivacaine Mpf 0.5% 30 ML VIAL (09:15)
--- NOTE | 2023-05-17 10:13 | OP.PCM_ITS ---
Report of Operation Date of Procedure: 05/17/23 Pre-Operative Diagnosis: Tailor's Bunion, right foot Post-Operative Diagnosis: Same Surgery/Procedure Performed:: 5th metatarsal osteotomy bunionectomy, right foot Surgeon: Evangelista Hand employment clerk: Dr. Lizarraga Type of Anesthesia: General and Local Specimen's removed: Tailor's bunion right foot sent to pathology Estimated Blood Loss (mL): 1mL Description of Procedure: Indications: 53 year old female with chronic right 5th metatarsal bunion (Tailor's bunion) pain despite nonsurgical treatment. She has difficulty with shoegear and activities. We discussed the options and she would like to proceed with right 5th metatarsal osteotomy bunionectomy. Reviewed the procedures, possible benefits vs risks, goals, expectations, and estimated healing time. She expressed understanding and agreement. No guarantees were given nor implied. No warranties were given. Patient freely signed the consent forms and elected to proceed forward with the procedure. She was medically cleared for surgical intervention. Operative procedure: The patient was brought back into the operating room and was placed on the operating room table in the supine position. Patient was carefully secured to the operating room table with a safety belt around patient's waist. A timeout was performed and the patient was properly identified and the surgical plan was confirmed. The patient did received 900mg of intravenous Clindamycin for antibiotic prophylaxis. The patient received general anesthesia per the anesthesia team. A well padded pneumatic tourniquet was applied around the right ankle. The right foot was scrubbed, prepped and draped in the usual aseptic fashion. Further attention was directed to the right foot. There was noted to be prominent 5th metatarsal head/tailor's bunion deformity. A total of 10mL of 0.5% Bupivacaine plain was given as a local nerve block around the 5th ray on the right foot. Left 5th metatarsal osteotomy: Attention was directed to the 5th metatarsal and 5th metatarsal phalangeal joint. A linear longitudinal skin incision was made overlying the dorsal lateral aspect of the 5th metatarsal phalangeal joint and 5th metatarsal using a 15 blade. Dissection was completed down through the subcutaneous tissue layer and down to the joint and metatarsal bone. A lateral eminence was present to the 5th metatarsal head and was resected using a powered sagittal saw and sent to pathology as specimen. An oblique osteotomy going from distal dorsal and plantar proximal was completed using a powered sagittal saw. The distal capital fragment (5th metatarsal head fragment) was shifted medially reducing the 4th intermetatarsal angle and correcting the tailor's bunion. The osteotomy was fixated using a kwire and 2.0mm cannulated dartfire screw. The osteotomy fixation and placement was checked on intraoperative fluoroscopy and noted to be in good position. Clinically there was good rigid fixation. The surgical site was flushed out with copious amounts of normal saline solution. Tissues were healthy and viable at this time. The subcutaneous tissue layers were reapproximated using 3-0 Vicryl and the skin was reapproximated using 3-0 Nylon. An additional 8 mL of 0.5% Bupivacaine plain was given as a local nerve block around the 5th ray. The pneumatic tourniquet was deflated at 50 minutes, and there was immediate return of warmth and perfusion to the foot each time it was deflated, including to all 5 toes. CFT < 2 seconds to all toes. There was hemostasis achieved prior to incision closure. A dressing was applied which consisted of adaptic, 4x4 gauze, Kerlix and angella bandage. Of note all vital structures, including all vital neurovascular st ructures were properly identified, they were protected and retracted as necessary throughout the above procedures. The patient tolerated the above procedure well and the anesthesia well with no complications. The patient was transported from the operating room to the recovery room with vital signs stable and in good condition. Post operative orders were placed. Post operative instructions were reviewed and dispensed. Rx for percocet for pain was prescribed and also Eliquis 2.5mg PO q 12 hours for DVT prophylaxis was prescribed as patient does have history of Factor V Leiden. Grafts/Implants Used: Cardeeo DartFire cannulated screw Complications None
[2023-05-17 10:59] LABS: Bedside Glucose 112 mg/dL (74-106)
== END 2023-05-17 11:30 | disposition home or self-care (01) ==
LOC: SDC 07:16 → AC 07:18
PROVIDERS: PCP Student in an Organized Health Care Education/Training Program; Referring Provider Podiatrist; Visit Provider Podiatrist
PROC: (CPT 28292; principal; 2023-05-17 08:40)
DX: M21.611 Bunion of right foot (principal); D66 Hereditary factor VIII deficiency; E11.40 Type 2 diabetes mellitus with diabetic neuropathy, unspecified; Z79.4 Long term (current) use of insulin; E78.5 Hyperlipidemia, unspecified; I10 Essential (primary) hypertension; Z79.82 Long term (current) use of aspirin; Z79.899 Other long term (current) drug therapy; Z87.891 Personal history of nicotine dependence
CPT/HCPCS: 28110; 01480; 73620; 76000; 82962; 88304; 88311; C1713; J7120; J2405

== ENCOUNTER 2023-06-27 18:08 | Emergency (ER) | payer MEDICAID, SELFPAY ==
[2023-06-27 18:09] VITALS: BP 130/86; PULSE 124; RESP 16; TEMP 36.3
[2023-06-27 18:11] VITALS: BP 130/86; PULSE 124; RESP 16; TEMP 36.3; BMI 47.3
--- NOTE | 2023-06-27 18:47 | RAD_ITS ---
INDICATION: pain EXAMINATION/TECHNIQUE: X-RAY - RIGHT XR Foot Min 3 Views 3 VIEWS COMPARISON: May 17, 2023 fluoroscopy FINDINGS: SOFT TISSUES: Prominent lateral forefoot edema. No subcutaneous emphysema. BONES/JOINTS: Lateral fifth metatarsal osteotomy with internal fixation. Fixation screw spans residual oblique fifth metatarsal fracture lucency. Lucency surrounds the head of the fixation screw. A fixation pin has migrated proximally compared with prior fluoroscopy, now external to bone within the soft tissues. Scattered fourth and fifth digit and first metatarsophalangeal joint osteoarthritis.. RAD/Foot min 3 Views IMPRESSION: Prior fifth metatarsal osteotomy and internal fixation with interval proximal migration of fixation pin external to bone within inflamed lateral forefoot soft tissues. There is also concern of for loosening or infection along the fifth metatarsal fixation screw with prominent lucency surrounding the head of the screw. Electronically Signed: Arslan Plaza MD at 19:36 EDT ,
[2023-06-27] MEDS: Ciprofloxacin 500 MG Tablet PO (21:25)
[2023-06-27] MEDS: Doxycycline 100 MG CAPSULE PO (21:25)
[2023-06-27 21:28] VITALS: BP 132/63; PULSE 85; RESP 16; TEMP 36.8; O2SAT 97
--- NOTE | 2023-06-27 21:37 | EDS_ITS ---
HPI History of Present Illness Chief Complaint: Lower Extremity Injury Narrative Narrative: Patient with history of right foot surgery by Dr. Hand about a month ago. She saw Dr. Hand in follow-up today who evaluated her foot and apparently there is been some migration of the pin that he put in the right fifth metatarsal. He plans on taking out in a week or 2 as he is going out of town. Patient states that after she left it she noticed that it was more intense tonight and denies any trauma. She states that she thinks that it might be more displaced than it was earlier. She does have pain over the site but it is not severe. She was unable to call podiatry because office is closed at this point. [facility] Medical History Wears glasses Wears partial dentures Heartburn History of echocardiogram Mitral valve prolapse Anxiety Insulin dependent diabetes mellitus Migraine headache Injury of head and neck History of Crohn's disease History of IBS Gastric reflux Former smoker History of irregular heartbeat Cardiology follow-up encounter Urinary tract infection Ureteral calculus, right Kidney stone Alcohol use Diabetes GERD (gastroesophageal reflux disease) Shortness of breath on exertion Irregular heart beat Vertigo Restless legs History of lipoma Gastroparesis Neuropathy High cholesterol Diabetes type 2, controlled Home Medications ?Medication ?Instructions ?Recorded ?Last Taken ?Type atenolol 50 mg tablet 50 mg PO QHS heart 11/23/16 05/16/23 19:00 History meclizine 25 mg tablet 50 mg PO QHS vertigo 11/23/16 01/14/21 History rosuvastatin 20 mg tablet 20 mg PO DAILY high cholesterol 11/23/16 01/14/21 History lansoprazole 30 mg capsule,delayed 60 mg PO QHS GERD 05/13/17 01/14/21 History release gabapentin 300 mg tablet 1,200 mg PO QHS 01/02/21 01/14/21 History gabapentin 300 mg tablet 900 mg PO BID 01/02/21 05/17/23 06:00 History levetiracetam 250 mg tablet 250 mg PO QHS headaches 01/02/21 01/05/21 History (Keppra) linaclotide 72 mcg capsule 72 mcg PO DAILY PRN 01/14/21 01/14/21 History (Linzess) gastrointestinal spasms or cramping sulfamethoxazole 800 1 tab PO BID #20 TABLETS 10/21/21 Unknown Rx mg-trimethoprim 160 mg tablet diazepam 5 mg tablet 5 mg PO QHS PRN PRN Muscle Spasm 05/09/23 Unknown History glucagon (human recombinant) 1 mg 1 mg IM ONCE PRN hypoglycemia 05/09/23 Unknown History solution for injection insulin regular hum U-500 conc 500 See Rx Instructions subcut BID 05/09/23 Unknown History unit/mL subcutaneous soln (Humulin e11.69 R U-500 (Concentrated) Insulin) apixaban 2.5 mg tablet (Eliquis) 2.5 mg PO Q12H #30 tabs 05/17/23 Unknown Rx oxycodone-acetaminophen 5 mg-325 1 tab PO Q6H PRN pain 3 days #20 05/17/23 Unknown Rx mg tablet (Percocet) tabs Allergy/AdvReac Type Severity Reaction Status Date / Time Penicillins Allergy Severe Anaphylaxis Verified 06/27/23 18:11 mirtazapine Allergy Unknown PT UNSURE Verified 06/27/23 18:11 OF REACTION propoxyphene Allergy Unknown PT UNSURE Verified 06/27/23 18:11 OF REACTION latex Allergy Swelling Verified 06/27/23 18:11 propoxyphene napsylate (From Allergy Unknown Verified 06/27/23 18:11 Darvocet-N 100) vancomycin Allergy Unknown Verified 06/27/23 18:11 atorvastatin (From Lipitor) AdvReac Intermediate Abd Verified 06/27/23 18:11 cramps/diarrhea etodolac AdvReac Intermediate Abd Verified 06/27/23 18:11 cramps/diarrhea lovastatin AdvReac Intermediate Other Verified 06/27/23 18:11 morphine AdvReac Intermediate Vomiting Verified 06/27/23 18:11 simvastatin AdvReac Intermediate Abd Verified 06/27/23 18:11 cramps/diarrhea tramadol AdvReac Intermediate Abd Verified 06/27/23 18:11 cramps/diarrhea hydrocodone bitartrate (From AdvReac Itching Verified 06/27/23 18:11 Vicodin) oxycodone HCl (From Percocet) AdvReac Itching Verified 06/27/23 18:11 Family History Mother Arthritis Father Diabetes Heart disease High cholesterol Surgical History History of foot surgery History of 3 sections History of tubal ligation History of surgery on arm History of fasciotomy pyloric pop surgery S/P foot surgery, left Social History Smoking Status: Former smoker second hand exposure: No alcohol intake: never substance use type: does not use ROS ROS ED Constitutional Constitutional ED: Denies chills, fever(s) or sweats Eyes Eyes: Denies blurry vision or change in vision ENT ENT ED: Denies ear pain or sore throat Cardiovascular Cardiovascular: Denies chest pain, palpitations or racing heartbeat Respiratory/Chest Respiratory/Chest: Denies cough, dyspnea or sputum Gastrointestinal Gastrointestinal: Denies abdominal pain, constipation, diarrhea, nausea or vomiting Genitourinary Genitourinary ED: Denies dysuria, hematuria or urinary frequency Musculoskeletal Musculoskeletal: Reports other Details: Right foot pain ; Denies arthralgias, myalgias or neck pain Integumentary Denies abscess, Abrasions or rash Neurologic Neurologic: Denies headache(s), paresthesias or weakness Psychiatric Psychiatric: Denies anxiety, depression, suicidal ideation or suicidal thoughts Endocrine Endocrinology: Denies polydipsia or polyuria EXAM Physical Exam Const Vital Signs: 06/27/23 18:09 06/27/23 18:11 06/27/23 21:28 Temperature 97.4 F L 97.4 F L 98.2 F Temperature Source Temporal Temporal Pulse Rate 124 H 124 H 85 Respiratory Rate 16 16 16 Blood Pressure 130/86 H 130/86 H 132/63 H Blood Pressure Mean 100 100 86 Pulse Ox 97 Positive well nourished General Appearance ED: NAD HEENT Reports moist mucous membranes normocephalic Extremity Extremity Narrative: Redness and swelling to the right lateral aspect of the right fifth metatarsal surgical scar noted over this area. No drainage . Neuro oriented x3 and CN's II-XII intact bilaterally Sensorium / Orientation: alert Motor Exam: strength 5/5 throughout MDM MDM MDM Narrative Medical decision making narrative: Patient presenting for evaluation of her right foot. She had an x-ray done today and it looks like there is some migration of the fixation pin on my interpretation. Radiology interpretation agrees there is also concern for loosening versus infection to the right fifth metatarsal. Patient has any signs or symptoms of infection other than the pain in the foot. Discussed with Dr. Fam who states that he can follow-up with her tomorrow I recommended I put her on Cipro and doxycycline and have her nonweightbearing on the right foot. She states she has a scooter for this purpose. He will see her in the office she is to call the office at 8. She was amenable to this plan. Impression: 1. Postop wound check 2. Migration of fixation pin Radiography Diagnostic Testing: Clinical Impression(s) from Imaging Studies Foot X-Ray 06/27/23 18:47 IMPRESSION: Prior fifth metatarsal osteotomy and internal fixation with interval proximal migration of fixation pin external to bone within inflamed lateral forefoot soft tissues. There is also concern of for loosening or infection along the fifth metatarsal fixation screw with prominent lucency surrounding the head of the screw. Electronically Signed: Arslan Plaza MD at 19:36 EDT Reading Location ID and State: [facility] / [place] Tel , Service support , Discharge Plan Triage Chief Complaint: Lower Extremity Injury ED Provider: Babak Snow Dx/Rx/DC Orders Instructions: ED Post Op Wound Check, General Prescriptions: No Action meclizine 25 MG tablet 50 mg PO QHS atenolol 50 MG tablet 50 mg PO QHS rosuvastatin 20 MG tablet 20 mg PO DAILY lansoprazole 30 MG capsule 60 mg PO QHS levetiracetam [Keppra] 250 mg tablet 250 mg PO QHS gabapentin 300 mg Tablet 900 mg PO BID gabapentin 300 mg Tablet 1,200 mg PO QHS Linzess 72 mcg Capsule 72 mcg PO DAILY PRN (Reason: gastrointestinal spasms or cramping) sulfamethoxazole-trimethoprim [sulfamethoxazole-trimethoprim] 800-160 mg tablet 1 tab PO BID Qty: 20 0RF Humulin R U-500 (Conc) Insulin 500 unit/mL solution See Rx Instructions SC BID Rx Instructions: basal 2.9 units per hour at night, 4.5 units during daytime glucagon (human recombinant) 1 mg recon soln 1 mg IM ONCE PRN (Reason: hypoglycemia) diazepam [diazepam] 5 mg tablet 5 mg PO QHS PRN PRN (Reason: Muscle Spasm) Eliquis 2.5 mg tablet 2.5 mg PO Q12H Qty: 30 0RF oxycodone-acetaminophen [Percocet] 5-325 mg tablet 1 tab PO Q6H PRN (Reason: pain) 3 Days Qty: 20 0RF Primary Care Provider: Yifan Blum Referrals: Colin Fam DPM [Med Staff - Active Staff] - 3-5 Days Yifan Blum DO [Primary Care Provider] - Print Language: Indian Disposition Disposition: Home, Self Care Discharge Date/Time: 06/27/23 21:30
== END 2023-06-27 21:30 | disposition home or self-care (01) ==
PROVIDERS: Emergency Provider Student in an Organized Health Care Education/Training Program; PCP Student in an Organized Health Care Education/Training Program; Visit Provider Student in an Organized Health Care Education/Training Program
DX: T84.223A Displacement of internal fixation device of bones of foot and toes, initial encounter (principal); Z79.4 Long term (current) use of insulin; E11.9 Type 2 diabetes mellitus without complications; M79.671 Pain in right foot; Z87.891 Personal history of nicotine dependence; Y79.3 Surgical instruments, materials and orthopedic devices (including sutures) associated with adverse incidents; K21.9 Gastro-esophageal reflux disease without esophagitis; Z79.899 Other long term (current) drug therapy
CPT/HCPCS: 73630; 99283

== ENCOUNTER → 2023-06-28 | Outpatient (CLI) | payer MEDICAID, SELFPAY | END | disposition home or self-care (01) | PROVIDERS: PCP Student in an Organized Health Care Education/Training Program; Referring Provider Podiatrist; Visit Provider Podiatrist | DX: L97.512 Non-pressure chronic ulcer of other part of right foot with fat layer exposed (principal) | CPT/HCPCS: 87070; 87075; 87205 ==

== ENCOUNTER → 2023-11-18 | Outpatient (CLI) | payer MEDICAID, SELFPAY ==
--- NOTE | 2023-11-18 09:39 | VDLE_ITS ---
Reason For Study: LLE PAin RIGHT LEFT GSV is normal. GSV is normal. CFV is compressible, spontaneous, phasic, CFV is compressible, spontaneous, phasic, competent and demonstrates normal competent, and demonstrates normal augmentation. augmentation. FV is compressible, spontaneous, phasic, FV is compressible, spontaneous, phasic, competent and demonstrates normal competent and demonstrates normal augmentation. augmentation. POP V is compressible, spontaneous, phasic, POP V is compressible, spontaneous, phasic, competent and demonstrates normal competent and demonstrates normal augmentation. augmentation. T/P Trunk is compressible. T/P Trunk is compressible. PTV is compressible. PTV is compressible. RT PerV is compressible. LT PerV is compressible. Procedure This is a venous duplex using B-mode, color flow and spectral Doppler. Exam performed in department. The study was technically difficult. VL/Venous Duplex US - Cullen Extrem Interpretation Summary Deep veins of the bilateral lower extremities are patent and compressible segme ntally. There is no evidence of bilateral lower extremity deep vein thrombosis. The bilateral great saphenous veins appear patent and compressible segmentally. Ordering Physician: Evangelista Hand Referring Physician: Alton Blum Performed By: Nick Mckay RVT
== END | disposition home or self-care (01) ==
LOC: CVS 09:35
PROVIDERS: PCP Student in an Organized Health Care Education/Training Program; Referring Provider Podiatrist; Visit Provider Podiatrist
DX: M79.662 Pain in left lower leg (principal)
CPT/HCPCS: 93970

== ENCOUNTER 2024-03-13 05:40 | Day surgery (SDC) | payer MEDICAID, SELFPAY ==
[2024-03-13] VITALS (9 sets, daily range): BP systolic 104–126; BP diastolic 56–73; PULSE 79–93; RESP 12–20; TEMP 36.3–37; O2SAT 92–98; BMI 47.2
[2024-03-13] MEDS: 0.9% Normal Saline (1000mL) 1,000 ML 15 ML IV (06:33)
[2024-03-13 06:54] LABS: Bedside Glucose 155 mg/dL (74-106)
--- NOTE | 2024-03-13 07:23 | PCM.PRE.AN2 ---
ASA Classification* ASA Classification ASA Classification: 3 Assessment & Plan Anesthesia* Anesthesia Assessment Anesthesia Assessment: Discussed sedation and/or anesthesia options, risks, benefits, and alternatives with patient/parents/legal guardian/POA. Questions invited. The patient/parents/legal guardian/POA seems to understand and agrees to proceed with anesthesia plan. Reviewed the physical assessment, medical history, allergy history and patient home medications list prior to surgery/procedure/anesthetic and documented any changes. Performed airway and anesthesia risk assessments. Anesthesia Type Anesthesia Type: General (severe gstroparesis ET or GA) and Block Anesthesia Focused Assessment* Temperature: 98.6 F Pulse Rate: 79 Blood Pressure: 108/73 Respiratory Rate: 16 Pulse Ox: 97 Airway Assessment Mouth opens: >3 cm Mallampati Score: II Focused Labs Anesthesia Preop lab: CBC WBC 11.5 K/mm3 (4.4-11.0) H 03/10/23 20:25 03/10/23 RBC 5.48 M/mm3 (4.2-5.4) H 03/10/23 20:25 03/10/23 Hgb 15.7 g/dL (12.0-15.0) H 03/10/23 20:25 03/10/23 Hct 48.4 % (37-47) H 03/10/23 20:25 03/10/23 Plt Count 279 K/mm3 (150-450) 03/10/23 20:25 03/10/23 CHEMISTRY Potassium 3.6 mmol/L (3.5-5.1) 03/10/23 20:25 03/10/23 Sodium 141 mmol/L (136-145) 03/10/23 20:25 03/10/23 BUN 9 mg/dL (7-18) 03/10/23 20:25 03/10/23 Creatinine 0.83 mg/dL (0.55-1.02) 03/10/23 20:25 03/10/23 Glucose 68 mg/dL (74-106) L 03/10/23 20:25 03/10/23 POC Glucose 155 mg/dL (74-106) H 03/13/24 06:28 03/13/24 COAG Pre-Assessment Diagnosis/Proposed Procedure Planned Operative Procedure(s): LEFT ANKLE ARTHROSCOPY WITH EXTENSIVE DEBRIDEMENT BROSTROM-KRISHNAN PROCEDURE FOR ANTERIOR TALAFIBULAR LIGAMENT REPAIR Anesthesia History Anesthesia History - 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 When Was Last Pacemaker Check QUESTION #4 FULL TEXT: You/Your Family Experience fever (hyperthermia) with Anesthesia Last Oral Intake Last Oral intake: Last Oral Intake NPO since 03:15 03/13/24 06:25 Meds taken in AM with sips of Yes 03/13/24 06:25 water? Meds patient instructed to see mar 03/13/24 06:25 take am of surgery PONV PONV - linoleum layer helper: PONV - linoleum layer helper Female Yes 03/09/24 09:13 HX of Motion Sickness Yes 03/09/24 09:13 HX of N/V After Surgery No 03/09/24 09:13 Non-Smoker Yes 03/09/24 09:13 Duration of Surgery greater Yes 03/09/24 09:13 than 60 minutes Number of Risk Factors 4 03/09/24 09:13 PONV Score Severe Risk 03/09/24 09:13 Height & Weight Height & Weight: Anesthesia: Height & Weight Height 5 ft 03/13/24 06:25 Weight: 109.769 kg 03/13/24 06:25 Body Mass Index (BMI) 47.2 03/13/24 06:25 Respiratory Assessment Respiratory Assessment - linoleum layer helper: Respiratory Tract Infection Hx - linoleum layer helper Hx Respiratory Tract Infection No 03/09/24 09:13 STOP Sleep Apnea STOP Sleep Apnea - linoleum layer helper: STOP Sleep Apnea - linoleum layer helper Hx Hypertension No 03/09/24 09:13 Hx Sleep Apnea No 03/09/24 09:13 CPAP BIPAP Do you snore loudly (louder No 03/09/24 09:13 than talking or can be heard Do you often feel tired/ No 03/09/24 09:13 fatigued/ sleepy during daytime? Has anyone observed you stop No 03/09/24 09:13 breathing during sleep? STOP Results Negative 03/09/24 09:13 QUESTION #5 FULL TEXT : Do you snore loudly (louder than talking or can be heard through closed doors)? 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 Specify any problems Hx of Preganancy in last 3 No 03/09/24 09:13 Months Nurse Filling Out Transfusion DSCHRIBER 03/09/24 09:13 & Questions: Date: 03/09/24 03/09/24 09:13 Time: 09:15 03/09/24 09:13 Patient unable to answer at this time (ie. confused, unrespo /Reproduction History /Reproductive History - linoleum layer helper: /Reproductive Hx- linoleum layer helper Hx Now Gestational Age (in weeks): EDC: Hx Hx Para Hx Section SAB No 03/09/24 09:13 Active Medications Active Medications: Current Medications Generic Name Dose Route Start Last Admin Trade Name Freq PRN Reason Stop Dose Admin Clindamycin Phosphate 900 mg in 50 mls @ 75 mls/hr 03/13/24 07:30 Cleocin IV 03/13/24 08:09 PREOP ONE Sodium Chloride 1,000 mls @ 15 mls/hr 03/13/24 06:00 03/13/24 06:33 IV 03/18/24 19:19 15 mls/hr .Q48H DAWSON Administration Protocol [facility] Medical History History of edema Wears glasses Wears partial dentures History of echocardiogram Mitral valve prolapse Anxiety Insulin dependent diabetes mellitus Migraine headache Injury of head and neck History of IBS Gastric reflux Former smoker History of irregular heartbeat Cardiology follow-up encounter Urinary tract infection Ureteral calculus, right Alcohol use Diabetes GERD (gastroesophageal reflux disease) Shortness of breath on exertion Irregular heart beat Vertigo Restless legs History of lipoma Gastroparesis Neuropathy High cholesterol Home Medications ?Medication ?Instructions ?Recorded ?Last Taken ?Type atenolol 50 mg tablet 50 mg PO QHS heart 11/23/16 03/12/24 History meclizine 25 mg tablet 50 mg PO QHS vertigo 11/23/16 03/12/24 History rosuvastatin 20 mg tablet 20 mg PO QHS high cholesterol 11/23/16 03/12/24 History lansoprazole 30 mg capsule,delayed 60 mg PO QHS GERD 05/13/17 01/14/21 History release gabapentin 300 mg tablet 1,200 mg PO QHS 01/02/21 01/14/21 History gabapentin 300 mg tablet 900 mg PO BID 01/02/21 03/13/24 History levetiracetam 250 mg tablet 250 mg PO QHS headaches 01/02/21 03/12/24 History (Keppra) linaclotide 72 mcg capsule 72 mcg PO DAILY PRN 01/14/21 01/14/21 History (Linzess) gastrointestinal spasms or cramping diazepam 5 mg tablet 5 mg PO QHS PRN PRN Muscle Spasm 05/09/23 Unknown History glucagon (human recombinant) 1 mg 1 mg IM ONCE PRN hypoglycemia 05/09/23 Unknown History solution for injection insulin regular hum U-500 conc 500 See Rx Instructions subcut BID 05/09/23 Unknown History unit/mL subcutaneous soln (Humulin e11.69 R U-500 (Concentrated) Insulin) baclofen 5 mg tablet 5 mg PO DAILY 03/09/24 03/11/24 History cyanocobalamin (vitamin B-12) 1,000 mcg PO DAILY 03/09/24 Unknown History 1,000 mcg tablet (Vitamin B-12) ibuprofen 800 mg tablet 800 mg PO TID PRN PRN pain 03/09/24 Unknown History meloxicam 15 mg tablet 15 mg PO DAILY 03/09/24 03/11/24 History mometasone-formoterol HFA 100 2 puff inhalation BID PRN PRN 03/09/24 Unknown History mcg-5 mcg/actuation aerosol BRONCHITIS inhaler (Dulera) vitamin C 90 mg-zinc gluconate 15 3 rosario PO DAILY 03/09/24 Unknown History mg-herbal complex no. 325 lozenges Allergy/AdvReac Type Severity Reaction Status Date / Time Penicillins Allergy Severe Anaphylaxis Verified 03/13/24 06:22 mirtazapine Allergy Unknown PT UNSURE Verified 03/13/24 06:22 OF REACTION propoxyphene Allergy Unknown PT UNSURE Verified 03/13/24 06:22 OF REACTION latex Allergy Swelling Verified 03/13/24 06:22 propoxyphene napsylate (From Allergy Unknown Verified 03/13/24 06:22 Darvocet-N 100) vancomycin Allergy Unknown Verified 03/13/24 06:22 atorvastatin (From Lipitor) AdvReac Intermediate Abd Verified 03/13/24 06:22 cramps/diarrhea etodolac AdvReac Intermediate Abd Verified 03/13/24 06:22 cramps/diarrhea lovastatin AdvReac Intermediate Other Verified 03/13/24 06:22 morphine AdvReac Intermediate Vomiting Verified 03/13/24 06:22 simvastatin AdvReac Intermediate Abd Verified 03/13/24 06:22 cramps/diarrhea tramadol AdvReac Intermediate Abd Verified 03/13/24 06:22 cramps/diarrhea hydrocodone bitartrate (From AdvReac Itching Verified 03/13/24 06:22 Vicodin) oxycodone HCl (From Percocet) AdvReac Itching Verified 03/13/24 06:22 Family History Mother Arthritis Father Diabetes Heart disease High cholesterol Surgical History History of bunionectomy of right great toe History of foot surgery History of 3 sections History of tubal ligation History of surgery on arm History of fasciotomy pyloric pop surgery S/P foot surgery, left Social History Smoking Status: Former smoker second hand exposure: No alcohol intake: never substance use type: does not use Review of Systems (Anesthesia) ROS Narrative System reviewed and no additional complaints, except as documented.
--- NOTE | 2024-03-13 07:27 | OP.PCM_ITS ---
Problems Associated Problem List Diagnoses (1) Pain in left lower leg: (2) Sprain of other ligament of left ankle, initial encounter: (3) Instability of left ankle joint: Operative Report (Standard) Operative Information Date of Procedure: 03/13/24 Pre-Operative Diagnosis: 1. Pain, left lower extremity 2. Sprain strain anterior talofibular ligament, left lower extremity 3. Ankle instability, left lower extremity Post-Operative Diagnosis: 1. Pain, left lower extremity 2. Sprain strain anterior talofibular ligament, left lower extremity 3. Ankle instability, left lower extremity Surgery/Procedure Performed: Procedure #1: Bone marrow aspirate concentrate, left lower extremity Procedure #2: Arthroscopy with excessive debridement, left lower extremity Procedure #3: Stress views, left lower extremity Procedure #4: Brostr?m Lowe ankle repair, left lower extremity locomotive operator: Yes Plastic Molding Operator: Hoa Gupta PGY3 Tasks completed by dam tender assistant: Opening & closing and Implanting device Additional speech language pathology assistant?: No Type of Anesthesia: General/Regional and Local RN Documented Start/Stop Times: Operation Date: 03/13/24 07:30 Case Time Into Pre-Op 03/13/24 05:59 Anesthesia Start 03/13/24 07:48 Into Room 03/13/24 07:48 Procedure Start 03/13/24 08:09 Procedure End 03/13/24 09:35 Anesthesia End 03/13/24 09:47 Out of Room 03/13/24 09:47 Into Recovery 03/13/24 09:53 Into Phase II Recovery 03/13/24 10:31 Out of Recovery 03/13/24 10:31 Out of Phase II 03/13/24 11:30 Procedure Start Time: 08:09 Procedure Stop Time: 09:35 Select all DRAINS/GRAFTS/IMPLANTS that apply: Tissue Tissue details: BMAC, PPP and Implanted device Implanted device details: Citrtafix Anchors, Louie Special Medications: Per anesthesia Estimated Blood Loss: 30 mL Fluids Replaced: Per anesthesia Specimen collected: No Description of surgery: Indications For Operation: Mrs. Reis is a 53-year-old type I diabetic female who was admitted to [facility] for elective surgery to left lower extremity consisting of ankle scope with excisional debridement, bone marrow aspirate concentrate harvest and lateral ankle stabilization surgery to left lower extremity. Patient is well-known to the office and was seen for surgical consultation. She had positive talar tilt on physical exam. The patient states that she suffers from chronic instability to the left lower extremity. With no treatment. After discussion and conservative treatment the pale patient failed outpatient conservative treatment and due to the chronicity of sprains that she has had. I educated the patient on surgical intervention and she was agreeable to. All risk and benefits discussed with the patient great detail. Chart review consent signed. Due to instability of the left lower extremity it was deemed necessary at this time to take the patient to the operating room to perform the above procedure.. The nature of the problem, anticipated procedures, postop recovery/convalences and risk/complications include but not limited to infection, wound healing complications, digital amputation, hypertrophic scarring, numbness, tingling, chronic pain, CRPS, over and under correction, recurrence of deformity, DVT and or PE and the need for further surgery have been discussed in great detail with the patient. All questions have been answered to the patient's satisfaction. There are no guarantees given as to the outcome of the procedure. Description of Procedure: Under mild sedation, the patient was brought into the operating room and placed on the operating table in supine position. Once the patient was under general anesthesia with endotracheal tube, the left lower extremity was blocked using approximately 10 cc 0.5% Marcaine plain and 10 cc of 2% lidocaine with epinephrine to the left ankle. Patient did receive a popliteal block by anesthesia prior to the procedure, please see anesthesia notes for further detail. Next, a well-padded thigh tourniquet was applied to the left lower extremity. Next, the left lower extremity was prepped and draped in normal aseptic manner. Next, a timeout was then undertaken verifying the correct patient, extremity, visibility of preoperative markings, availability of the equipment. Procedure #1: Bone marrow aspirate concentrate, left lower extremity (CPT code 99962) Next, attention was directed to the left lower extremity. Using a Jamshidi needle and mallet the needle was inserted to the lateral aspect of the calcaneus to left lower extremity. Once secured in place 50 cc of bone marrow aspirate concentrate were harvested and passed back table to be spun down for bone marrow aspirate concentrate injection at the end the procedure as well as PPP for skin prep. Next, attention was directed to the left lower extremity. Using a 6 Esmarch, left lower extremity was exsanguinated and elevated to 60 degrees for 1 minute. Procedure #2: Arthroscopy with excessive debridement, left lower extremity (CPT code: 43454) Next, attention was directed to the left ankle. Using a large C-arm fluoroscopy the ankle joint was marked out. Once the anterior tibial tendon was identified as well as the large saphenous nerve the anterior medial portal was identified and marked, using a #11 blade a stab incision was made no larger than 5 mm followed by blunt dissection with curved hemostat to level of the ankle joint. Using a trocar and obturator the anterior medial portal was established. Using the Arthrex 4.0 mm 30 degree scope the lateral portal was established with illumination guidance and using a #15 blade a stab incision was made followed by gentle dissection until the anterior lateral border of the ankle was established. Care was also taken to identify the subcutaneous nerves. Exploration of the ankle showed no evidence of OCD's to the lateral medial side of the talus. There showed evidence of some degenerative changes along the tibia. There was evidence of synovitis throughout the ankle. Next, excessive debridement using the Arthrex shaver was done throughout the ankle cleaning up all the synovitis, then followed a thorough check at all 19 spots of the right ankle were identified. After extensive debridement was completed the area was flushed with copious normal saline the suction from the shaver was used to evacuate all free floating material. All incisions on the medial lateral side of the ankle were flushed with copious normal saline. The left lower extremities were cleaned and patted dry. Both incisions were closed with large big bite sutures with 3-0 nylon in simple interrupted suture technique. Procedure #3: Brostr?m Lowe ankle repair, left lower extremity (CPT code: 31621) / Procedure #4: Stress views, left lower extremity (CPT code: 22184) Next, attention was directed to the left lower extremity at the level of the fibula. Using a sterile skin marker the incision was marked out on the anterior aspect following the fibula down to the distal stomach. Next, the ankle was stressed and showed evidence of 5 degrees or greater of talar tilt due to instability of the ATFL. Using a #15 blade a full-thickness incision down to subcutaneous tissue was performed. Blunt dissection was carried down to the level of the fibula. Using a freer elevator a portal was made distal to proximal and a #15 blade was used to excise the soft tissue exposing the fibula as well as the lateral side of the talus. Inspection of the ATFL tendon show evidence of partial tearing. The soft tissue at the level of the ATFL was freed up with sharp dissection. Using 2 citrafix anchors, they were inserted one distally and the othe 1 cm proximately per the manufactures technique with the rep in the room using #2 fiberwire. There showed great implantation of the 2 anchors. The incision was flushed with copious normal saline. Next, using free needles pants over vest technique was done to reapproximate and secure the ATFL ligament. Next the proximal implant and free needle were used to perform the Lowe technique, allowing the inferior extensor retinaculum to be used to reinforce the repair. The fiberwire was hand tied and secured in place. Next, the left ankle was stressed using live fluoroscopy and showed no evidence of tilt. At this time the left thigh tourniquet was deflated and reperfusion was noted instantly to the left lower extremity. All bleeders were ligated and cauterized as necessary. The deep layer was reapproximated closed using 3-0 Monocryl running locking suture technique. The subcutaneous layer was reapproximated closed with 3-0 Monocryl in running suture technique. The skin was reapproximated closed using 3-0 nylon in horizontal mattress suture technique. The left lower extremities were cleaned and patted dry. BMAC was injected to the level of the ATFL and all incisions followed by PPP which was sprayed over all incisions. All incisions were dressed with Betadine soaked Adaptic dry sterile dressing and a double layer Bettencourt AO splint was applied at 90 degrees with some eversion to the right lower extremity. The patient tolerated the procedure and anesthesia well and apparent satisfactory condition and was transported to the PACU for further monitoring prior to discharge home. Vital signs stable and vascular status intact to all digits bilateral. Post Operative Plan: Weightbearing: Nonweightbearing to left lower extremity with assistive knee scooter. Full weightbearing to the right lower extremity. Antibiotics: 900 mg of clindamycin through the IV DVT Prophylaxis: 81 mg aspirin Veras: None Dressing: PPP, Betadine soaked Adaptic dry sterile dressing double layer Bettencourt AO splint to left lower extremity. X-Rays: Post-operative films taken on the operating room. Pain Medication: Percocet 5/325, Flexeril 10 mg Follow-up: Patient will follow-up 1 week to 10 days in private office with Dr. Pimentel. Surgical Findings: 1. Partial tearing of the ATFL to left lower extremity. 2. Evidence of arthritic changes appreciated to the tibia. No evidence of OCD's to the talus. 3. Positive talar tilt with live C-arm fluoroscopy prior to repair. No evidence of talar tilt after repair. Complications Complications: No Admit VTE Documentation VTE Present on Admission: No VTE Mechan Device Prophylaxis: SCD's VTE Pharm Prophylaxis ordered?: Yes
--- NOTE | 2024-03-13 07:34 | RAD_ITS ---
EXAM: Intraoperative fluoroscopy, also with 2 fluoroscopic images obtained CLINICAL HISTORY: Left ankle arthroscopy and debridement COMPARISON: None. TECHNIQUE: Intraoperative fluoroscopy was performed, along with 2 fluoroscopic images obtained RAD/O.R. Fluoro for C-Arm IMPRESSION: Intraoperative fluoroscopy was performed, along with 2 fluoroscopic images cindya michelle, at the left ankle. Reading Location: [id number]
--- NOTE | 2024-03-13 07:35 | RAD_ITS ---
EXAM: Intraoperative fluoroscopy, also with 2 fluoroscopic images obtained CLINICAL HISTORY: Left ankle arthroscopy and debridement COMPARISON: None. TECHNIQUE: Intraoperative fluoroscopy was performed, along with 2 fluoroscopic images obtained RAD/Ankle 2 Views IMPRESSION: Intraoperative fluoroscopy was performed, along with 2 fluoroscopic images obta ined, at the left ankle. Reading Location: [id number]
[2024-03-13] MEDS: Clindamycin 900 MG/50 ML BAG 75 MG IV (07:48)
[2024-03-13] MEDS: Calcium Chloride 1 GM/10 ML Syringe (08:00)
[2024-03-13] MEDS: Thrombin 5,000 IU Kit (PSA) 5,000 IU Vial 5000 IU TOPICAL (08:00)
[2024-03-13] MEDS: Heparin 10,000 UNITS/10 ML Vial 10000 UNITS (08:00)
[2024-03-13] MEDS: Lidocaine 1% /Epi 1:100 (20ml) 20 ML Vial (08:05)
[2024-03-13] MEDS: Bupivacaine 0.25% 30 ML Vial (08:05)
--- NOTE | 2024-03-13 09:52 | PCM.POST.ANE ---
Anesthesia: Postop Eval I Current Vital Signs Temperature: 97.3 F Pulse Rate: 93 Blood Pressure: 126/56 Respiratory Rate: 20 Pulse Ox: 98 Assessment Airway patent: Yes Spontaneous unlabored respirations: Yes nausea: No Vomiting: No Anesthesia Complication: No Fluid Hydration Crystalloid volume administer (ml): 1,200 Total IV fluid infused: 1,200 Progress Note Anesthesia document: Postop Eval 1 completed: Yes
--- NOTE | 2024-03-13 10:16 | POSTOPAN2_ITS ---
Anesthesia Postop Eval I Sum Postop Eval Completion status Anesthesia document: Postop Eval 1 completed: Yes Anesthesia Postop Eval I Summary Anesthesia Postop Eval I Summary: Anesthesia Postop Eval I: Assessment Summary Airway patent Yes 03/13/24 09:52 [email or web address] [email or web address] Spontaneous unlabored Yes 03/13/24 09:52 HEMODIALYSIS [email or web address] respirations Mental status nausea No 03/13/24 09:52 HEMODIALYSIS [email or web address] Vomiting No 03/13/24 09:52 [email or web address] [email or web address] Anesthesia Postop Eval I: Fluid Summary Crystalloid volume administer 1,200 03/13/24 09:52 HEMODIALYSIS [email or web address] (ml) Colloids volume administered ( ml) Blood Product volume administered (ml) Total IV fluid infused 1,200 03/13/24 09:52 HEMODIALYSIS [email or web address] Anesthesia Postop Eval I: Summary Notes Anesthesia Complication No 03/13/24 09:52 HEMODIALYSIS [email or web address] Anesthesia Complication Comment: Post-operative progress note Anesthesia: Postop Eval II Evaluation Mental status: Awake Pain Level: 2 nausea: No Vomiting: No
--- NOTE | 2024-03-13 10:16 | PCM.POSTANE2 ---
Anesthesia Postop Eval I Sum Postop Eval Completion status Anesthesia document: Postop Eval 1 completed: Yes Anesthesia Postop Eval I Summary Anesthesia Postop Eval I Summary: Anesthesia Postop Eval I: Assessment Summary Airway patent Yes 03/13/24 09:52 [email or web address] Spontaneous unlabored Yes 03/13/24 09:52 [email or web address] respirations Mental status nausea No 03/13/24 09:52 [email or web address] Vomiting No 03/13/24 09:52 [email or web address] Anesthesia Postop Eval I: Fluid Summary Crystalloid volume administer 1,200 03/13/24 09:52 [email or web address] (ml) Colloids volume administered ( ml) Blood Product volume administered (ml) Total IV fluid infused 1,200 03/13/24 09:52 [email or web address] Anesthesia Postop Eval I: Summary Notes Anesthesia Complication No 03/13/24 09:52 [email or web address] Anesthesia Complication Comment: Post-operative progress note Anesthesia: Postop Eval II Evaluation Mental status: Awake Pain Level: 2 nausea: No Vomiting: No
== END 2024-03-13 11:30 | disposition home or self-care (01) ==
LOC: SDC 05:41 → AC 05:43
PROVIDERS: PCP Student in an Organized Health Care Education/Training Program; Referring Provider Podiatrist Foot & Ankle Surgery; Visit Provider Podiatrist Foot & Ankle Surgery
PROC: (CPT 29898; principal; 2024-03-13 07:15)
DX: S93.492A Sprain of other ligament of left ankle, initial encounter (principal); E66.01 Morbid (severe) obesity due to excess calories; Z68.42 Body mass index [BMI] 45.0-49.9, adult; Z79.4 Long term (current) use of insulin; E11.42 Type 2 diabetes mellitus with diabetic polyneuropathy; X58.XXXA Exposure to other specified factors, initial encounter; M25.372 Other instability, left ankle; E78.00 Pure hypercholesterolemia, unspecified; Z79.899 Other long term (current) drug therapy; Z86.16 Personal history of COVID-19; Z79.891 Long term (current) use of opiate analgesic
CPT/HCPCS: 29898; 38220; 27698; 01464; 64445; 73600; 76000; 82962; C1713; J2405